=== PATIENT | female | born 1995 | race Caucasian/White ===

== ENCOUNTER → 2017-01-18 | Outpatient (REF) | payer OTHER | LOC: M LAB REF 12:36 | PROVIDERS: ATTEND Physician Assistant Medical | DX: R50.9 Fever, unspecified (principal) ==

== ENCOUNTER → 2017-02-12 | Outpatient (CLI) | payer OTHER | LOC: M OUTALCOH 10:23 | PROVIDERS: ATTEND Psychiatry & Neurology Psychiatry | DX: F11.20 Opioid dependence, uncomplicated (principal); F10.20 Alcohol dependence, uncomplicated ==

== ENCOUNTER 2017-02-20 11:12 | Outpatient (RCR) | payer OTHER | END 2017-02-21 | LOC: M OUTALCOH 11:12 | PROVIDERS: ATTEND Psychiatry & Neurology Psychiatry | DX: F11.20 Opioid dependence, uncomplicated (principal); F10.20 Alcohol dependence, uncomplicated; F17.200 Nicotine dependence, unspecified, uncomplicated ==

== ENCOUNTER 2017-03-21 15:00 | Outpatient (RCR) | payer OTHER | END 2017-03-23 | LOC: M OUTALCOH 15:00 | PROVIDERS: ATTEND Psychiatry & Neurology Psychiatry | DX: F11.20 Opioid dependence, uncomplicated (principal); F10.20 Alcohol dependence, uncomplicated; F17.200 Nicotine dependence, unspecified, uncomplicated ==

== ENCOUNTER → 2017-04-23 | Outpatient (RCR) | payer OTHER, MEDICAID | LOC: M OUTALCOH 03-25 09:00 | PROVIDERS: ATTEND Psychiatry & Neurology Psychiatry | DX: F11.20 Opioid dependence, uncomplicated (principal); F10.20 Alcohol dependence, uncomplicated; F17.200 Nicotine dependence, unspecified, uncomplicated ==

== ENCOUNTER → 2017-05-23 | Outpatient (RCR) | payer OTHER, MEDICAID | LOC: M OUTALCOH 04-29 11:18 | PROVIDERS: ATTEND Psychiatry & Neurology Psychiatry | DX: F11.20 Opioid dependence, uncomplicated (principal); F10.20 Alcohol dependence, uncomplicated; F17.200 Nicotine dependence, unspecified, uncomplicated ==

== ENCOUNTER → 2017-06-23 | Outpatient (RCR) | payer OTHER, MEDICAID | LOC: M OUTALCOH 05-26 09:14 | PROVIDERS: ATTEND Psychiatry & Neurology Psychiatry | DX: F11.20 Opioid dependence, uncomplicated (principal); F10.20 Alcohol dependence, uncomplicated; F17.200 Nicotine dependence, unspecified, uncomplicated ==

== ENCOUNTER → 2017-07-05 | Outpatient (REF) | payer OTHER, MEDICAID | LOC: M LAB REF 13:46 | PROVIDERS: ATTEND Physician Assistant Medical | DX: J02.9 Acute pharyngitis, unspecified (principal) ==

== ENCOUNTER 2017-07-23 16:00 | Outpatient (RCR) | payer OTHER, MEDICAID | END 2017-07-24 | LOC: M OUTALCOH 16:00 | PROVIDERS: ATTEND Psychiatry & Neurology Psychiatry | DX: F11.20 Opioid dependence, uncomplicated (principal); F10.20 Alcohol dependence, uncomplicated; F17.210 Nicotine dependence, cigarettes, uncomplicated ==

== ENCOUNTER 2017-08-22 11:00 | Outpatient (RCR) | payer OTHER, MEDICAID | END 2017-08-23 | LOC: M OUTALCOH 11:00 | PROVIDERS: ATTEND Psychiatry & Neurology Psychiatry | DX: F11.20 Opioid dependence, uncomplicated (principal); F10.20 Alcohol dependence, uncomplicated; F17.200 Nicotine dependence, unspecified, uncomplicated ==

== ENCOUNTER 2017-10-20 14:00 | Outpatient (RCR) | payer OTHER, MEDICAID | END 2017-10-23 | LOC: M OUTALCOH 14:00 | PROVIDERS: ATTEND Psychiatry & Neurology Psychiatry | DX: F11.20 Opioid dependence, uncomplicated (principal); F10.20 Alcohol dependence, uncomplicated; F17.200 Nicotine dependence, unspecified, uncomplicated ==

== ENCOUNTER 2017-11-03 11:52 | Outpatient (RCR) | payer OTHER, MEDICAID | END 2017-11-23 | LOC: M OUTALCOH 11-21 09:00 | DX: F11.20 Opioid dependence, uncomplicated (principal); F10.20 Alcohol dependence, uncomplicated; F17.200 Nicotine dependence, unspecified, uncomplicated ==

== ENCOUNTER 2017-12-08 09:34 | Outpatient (RCR) | payer MEDICAID, OTHER | END 2017-12-24 | LOC: M OUTALCOH 12-22 14:00 | DX: F11.20 Opioid dependence, uncomplicated (principal); F10.20 Alcohol dependence, uncomplicated; F17.200 Nicotine dependence, unspecified, uncomplicated ==

== ENCOUNTER 2018-02-06 09:43 | Outpatient (RCR) | payer MEDICAID | END 2018-02-21 | LOC: M OUTALCOH 09:43 | DX: F11.20 Opioid dependence, uncomplicated (principal); F10.20 Alcohol dependence, uncomplicated; F17.200 Nicotine dependence, unspecified, uncomplicated ==

== ENCOUNTER 2018-09-14 16:17 | Emergency (ER) | payer MEDICAID | END 2018-09-14 18:35 | disposition left against medical advice (07) | LOC: M ED 16:17 | DX: R51 Headache (principal); Z53.21 Procedure and treatment not carried out due to patient leaving prior to being seen by health care provider ==

== ENCOUNTER 2018-09-15 04:44 | Emergency (ER) | payer MEDICAID ==
[2018-09-15] MEDS: AZITHROMYCIN 250 MG TAB PO (06:45)
[2018-09-15] MEDS: cefTRIAXone SOD 250 MG VIAL (J0696) IM (06:46)
== END 2018-09-15 06:51 | disposition home or self-care (01) ==
LOC: M ED 04:44
DX: Z20.2 Contact with and (suspected) exposure to infections with a predominantly sexual mode of transmission (principal); F17.210 Nicotine dependence, cigarettes, uncomplicated
CPT/HCPCS: J0696

== ENCOUNTER → 2018-11-10 | Outpatient (CLI) | payer MEDICAID ==
[~2018-11-10] MED LIST: AMOX500C; BENA25CA4 PO; BUSP10TA PO; IBUP-359; METH5TA PO; PRAZ2CAP PO
[2018-11-10 12:16] LABS: ALT/SGPT 16 U/L (12-78); BILIRUBIN,TOTAL 1.7 MG/DL (0.2-1.0); BLOOD UREA NITROGEN 16 MG/DL (7-18); CALCIUM LEVEL 8.9 MG/DL (8.5-10.1); CARBON DIOXIDE LEVEL 29 MEQ/L (21-32); CHLORIDE LEVEL 100 MEQ/L (98-107); CREATININE FOR GFR 0.78 MG/DL (0.55-1.30); GLOMERULAR FILTRATION RATE > 60.0 (>60); GLUCOSE, FASTING 90 MG/DL (70-100); POTASSIUM SERUM 4.3 MEQ/L (3.5-5.1); SODIUM LEVEL 138 MEQ/L (136-145); TOTAL PROTEIN 7.6 GM/DL (6.4-8.2)
[2018-11-10 12:29] LABS: HEMOGLOBIN 13.3 g/dl (12.0-15.5); MEAN CORPUSCULAR HEMOGLOBIN 32.7 pg (27.0-33.0); MEAN CORPUSCULAR HGB CONC 34.1 g/dl (32.0-36.5); MEAN CORPUSCULAR VOLUME 95.8 fl (80.0-96.0); PLATELET COUNT, AUTOMATED 276 10^3/uL (150-450); RED BLOOD COUNT 4.07 10^6/uL (4.00-5.40)
[2018-11-10 12:54] LABS: CHLAMYDIA DNA AMPLIFICATION NEGATIVE (NEGATIVE); GC DNA AMPLIFICATION NEGATIVE (NEGATIVE)
[2018-11-10 20:19] LABS: HCG, SERUM QUALITATIVE NEGATIVE (NEGATIVE)
--- NOTE | 2018-11-11 06:22 | ECGEPIP ---
Stationary ECG Study [facility] Test Date: 2018-11-10 Pat Name: TIERNEY QUEEN Department: Room: - Gender: F Pie Icer Machine: NATANAEL : 1995 Requested By: Garrison Hdz Order Number: [id number] Reading MD: Meli Rea Measurements Intervals [place] Rate: 73 P: 24 IL: 119 QRS: 59 QRSD: 78 T: 39 QT: 344 QTc: 380 Interpretive Statements SINUS RHYTHM WITH SHORT [place] INTERVAL EARLY REPOLARIZATION PATTERN NO PRIOR Electronically Signed On 11-11-2018 6:22:01 EST by Meli Rea
[2018-11-11 09:43] LABS: HEPATITIS B SURFACE ANTIGEN NEGATIVE (NEGATIVE)
[2018-11-11 10:11] LABS: HEPATITIS C VIRUS ABY INDEX 0.1 INDEX (<0.8)
[2018-11-11 10:12] LABS: HIV 1&2 SCREEN CENTAUR NEGATIVE (NEGATIVE)
== END ==
LOC: M LAB 10:44
PROVIDERS: ATTEND Family Medicine
DX: F11.20 Opioid dependence, uncomplicated (principal)

== ENCOUNTER 2018-11-20 17:22 | Emergency (ER) | payer MEDICAID, OTHER ==
[~2018-11-20] VITALS: Ht 147.3 cm; Wt 49.1 kg
[2018-11-20] MEDS ORDERED: BUSP10TA PO (17:47)
[2018-11-20] MEDS ORDERED: AMOX500C (17:47)
[2018-11-20] MEDS ORDERED: PRAZ2CAP PO (17:47)
[2018-11-20] MEDS ORDERED: METH5TA PO (17:47)
[2018-11-20] MEDS ORDERED: IBUP-359 (17:47)
[2018-11-20] MEDS ORDERED: diphenhydrAMINE 50 MG CAP PO ONE (18:30)
[2018-11-20 18:56] LABS: ALBUMIN 3.4 GM/DL (3.2-5.2); ALT/SGPT 27 U/L (12-78); BILIRUBIN,DIRECT 0.1 MG/DL (0.0-0.2); BILIRUBIN,TOTAL 0.5 MG/DL (0.2-1.0); BLOOD UREA NITROGEN 8 MG/DL (7-18); CALCIUM LEVEL 8.6 MG/DL (8.5-10.1); CARBON DIOXIDE LEVEL 30 MEQ/L (21-32); CHLORIDE LEVEL 102 MEQ/L (98-107); CREATININE FOR GFR 0.65 MG/DL (0.55-1.30); GLOMERULAR FILTRATION RATE > 60.0 (>60); GLUCOSE, FASTING 81 MG/DL (70-100); POTASSIUM SERUM 3.3 MEQ/L (3.5-5.1); SODIUM LEVEL 140 MEQ/L (136-145); TOTAL PROTEIN 6.8 GM/DL (6.4-8.2)
[2018-11-20] MEDS ORDERED: BENA25CA4 PO (19:11)
[2018-11-20 19:19] VITALS: BP 123/87
== END 2018-11-20 19:25 | disposition home or self-care (01) ==
LOC: M ED 17:22
DX: L50.9 Urticaria, unspecified (principal); R60.0 Localized edema; Z79.891 Long term (current) use of opiate analgesic; F11.11 Opioid abuse, in remission; F17.201 Nicotine dependence, unspecified, in remission

== ENCOUNTER 2018-12-19 17:14 | Emergency (ER) | payer OTHER ==
[~2018-12-19] VITALS: Ht 147.3 cm; Wt 40.9 kg
[2018-12-19] MEDS ORDERED: BUSP10TA PO (18:51)
[2018-12-19 18:58] VITALS: BP 133/89
== END 2018-12-19 19:01 | disposition home or self-care (01) ==
LOC: M ED 17:14
DX: Z76.0 Encounter for issue of repeat prescription (principal); F41.9 Anxiety disorder, unspecified; F11.10 Opioid abuse, uncomplicated; F17.200 Nicotine dependence, unspecified, uncomplicated; Z79.899 Other long term (current) drug therapy

== ENCOUNTER 2018-12-27 14:51 | Emergency (ER) | payer OTHER ==
[~2018-12-27] VITALS: Ht 147.3 cm; Wt 44.9 kg
[2018-12-27 16:41] LABS: URINE PREG TEST NEGATIVE (NEGATIVE)
[2018-12-27] MEDS ORDERED: FLAG500T PO (17:10)
[2018-12-27] MEDS ORDERED: PRAZ2CAP PO (17:10)
[2018-12-27] MEDS ORDERED: metroNIDAZOLE (FLAGYL) 500 MG TAB PO ONE (17:15)
[2018-12-27] MEDS ORDERED: PRAZOSIN 1 MG CAP PO SCH (17:15)
[2018-12-27 17:43] VITALS: BP 117/89
[2018-12-27 17:48] VITALS: BP 117/89
[2018-12-27 18:28] LABS: CHLAMYDIA DNA AMPLIFICATION NEGATIVE (NEGATIVE); GC DNA AMPLIFICATION NEGATIVE (NEGATIVE)
== END 2018-12-27 17:50 | disposition home or self-care (01) ==
LOC: M ED 14:51
DX: Z76.0 Encounter for issue of repeat prescription (principal); N76.0 Acute vaginitis; F43.10 Post-traumatic stress disorder, unspecified; F51.4 Sleep terrors [night terrors]; Z72.0 Tobacco use; Z79.899 Other long term (current) drug therapy

== ENCOUNTER → 2018-12-29 | Outpatient (REF) | payer OTHER ==
[~2018-12-29] MED LIST changes: +FLAG500T PO
== END ==
LOC: M SFHCPLAZ 08:14
PROVIDERS: ATTEND Nurse Practitioner Family
DX: Z00.00 Encounter for general adult medical examination without abnormal findings (principal); F31.30 Bipolar disorder, current episode depressed, mild or moderate severity, unspecified; Z13.220 Encounter for screening for lipoid disorders; Z53.9 Procedure and treatment not carried out, unspecified reason

== ENCOUNTER 2019-05-02 18:52 | Emergency (ER) | payer OTHER ==
[~2019-05-02] VITALS: Ht 147.3 cm; Wt 47.6 kg
[2019-05-02 20:05] VITALS: BP 118/80
[2019-05-03] MEDS ORDERED: MACR100C43 PO (17:17)
== END 2019-05-02 20:08 | disposition home or self-care (01) ==
LOC: M ED 18:52
DX: F34.9 Persistent mood [affective] disorder, unspecified (principal); F17.210 Nicotine dependence, cigarettes, uncomplicated; F11.20 Opioid dependence, uncomplicated; F31.9 Bipolar disorder, unspecified; Z79.899 Other long term (current) drug therapy

== ENCOUNTER 2019-05-03 08:49 | Emergency (ER) | payer OTHER ==
[~2019-05-03] VITALS: Ht 149.9 cm; Wt 43.2 kg
[2019-05-03] MEDS ORDERED: NALOXONE INJ 0.4 MG/1 ML VIAL (J2310) IV ONE (09:15)
[2019-05-03 10:10] LABS: BASO # 0.1 10^3/uL (0.0-0.2); BASO % 0.7 % (0.0-1.0); EOS # 0.1 10^3/uL (0.0-0.50); EOS % 0.7 % (0.0-3.0); HEMATOCRIT 41.9 % (36.0-47.0); HEMOGLOBIN 14.1 g/dl (12.0-15.5); LYMPH % 35.3 % (24.0-44.0); MEAN CORPUSCULAR HEMOGLOBIN 32.3 pg (27.0-33.0); MEAN CORPUSCULAR HGB CONC 33.7 g/dl (32.0-36.5); MEAN CORPUSCULAR VOLUME 95.9 fl (80.0-96.0); MONO # 0.9 10^3/uL (0.0-0.8); MONO % 10.1 % (0.0-5.0); NEUTROPHILS # 4.5 10^3/uL (1.8-7.7); PLATELET COUNT, AUTOMATED 339 10^3/uL (150-450); RED BLOOD COUNT 4.37 10^6/uL (4.00-5.40); WHITE BLOOD COUNT 8.5 10^3/uL (4.0-10.0)
[2019-05-03 10:24] LABS: HCG, SERUM QUALITATIVE NEGATIVE (NEGATIVE)
[2019-05-03 10:32] LABS: ALBUMIN 4.1 GM/DL (3.2-5.2); ALT/SGPT 15 U/L (12-78); BILIRUBIN,DIRECT 0.3 MG/DL (0.0-0.2); BILIRUBIN,TOTAL 1.2 MG/DL (0.2-1.0); BLOOD UREA NITROGEN 14 MG/DL (7-18); CALCIUM LEVEL 8.5 MG/DL (8.5-10.1); CARBON DIOXIDE LEVEL 24 MEQ/L (21-32); CHLORIDE LEVEL 102 MEQ/L (98-107); CPK CREATINE PHOSPHOKINASE 122 U/L (26-192); CREATININE FOR GFR 0.97 MG/DL (0.55-1.30); GLOMERULAR FILTRATION RATE > 60.0 (>60); GLUCOSE, FASTING 106 MG/DL (70-100); POTASSIUM SERUM 3.9 MEQ/L (3.5-5.1); SALICYLATE LEVEL < 1.7 MG/DL (5.0-30.0); SODIUM LEVEL 139 MEQ/L (136-145); TOTAL PROTEIN 8.4 GM/DL (6.4-8.2)
[2019-05-03 10:33] LABS: ACETAMINOPHEN LEVEL < 2.0 UG/ML (10.0-30.0); ETHYL ALCOHOL (ETHANOL) < 0.003 % (0.000-0.010)
[2019-05-03] MEDS: NS 1,000 ML IV SCH ×2 (10:35→15:53)
[2019-05-03 10:37] LABS: AMPHETAMINES LEVEL URINE NEGATIVE (NEGATIVE); BARBITURATES URINE NEGATIVE (NEGATIVE); BENZODIAZEPINES URINE NEGATIVE (NEGATIVE); CANNABINOIDS URINE NEGATIVE (NEGATIVE); COCAINE METABOLITE URINE NEGATIVE (NEGATIVE); METHADONE URINE POSITIVE (NEGATIVE); OPIATES URINE NEGATIVE (NEGATIVE); PHENCYCLIDINE URINE NEGATIVE (NEGATIVE)
[2019-05-03] MEDS ORDERED: cefTRIAXone SOD 1 GM in D5W MINI-BAG PLUS 50 ML IV ONE (11:00)
--- NOTE | 2019-05-03 11:28 | REP ---
CHEST, SINGLE VIEW: There is no evidence of acute infiltrate. No pleural effusion is seen. The heart is normal in size. The mediastinal silhouette is unremarkable. The visualized osseous structures are intact. IMPRESSION: No acute pulmonary disease. Electronically Signed by Garrison Gonzalez MD 05/04/2019 11:32 A
[2019-05-03] MEDS ORDERED: NS 1,000 ML IV ONE (15:30)
[2019-05-03 16:30] VITALS: BP 129/79
[2019-05-03] MEDS ORDERED: MACR100C43 PO (17:17)
--- NOTE | 2019-05-04 07:47 | ECGEPIP ---
[facility] - ED Test Date: 2019-05-03 Pat Name: TIERNEY QUEEN Department: Room: - Gender: Female Prospecting Driller: TC : 1995 Requested By: ARMIN Camarena Order Number: [id number] Reading MD: Maikol Turner Measurements Intervals [place] Rate: 109 P: 58 AL: 112 QRS: 63 QRSD: 76 T: 13 QT: 338 QTc: 457 Interpretive Statements SINUS TACHYCARDIA WITH SHORT AL INTERVAL BENIGN EARLY REPOLARIZATION NONSPECIFIC T-WAVE ABNORMALITY RATE CHANGE COMPARED TO 11/10/18 Electronically Signed on 05-04-2019 7:47:06 EDT by Maikol Turner
== END 2019-05-03 17:40 | disposition home or self-care (01) ==
LOC: M ED 08:49 → EEVIPCON 08:49 → EDBD 08:49 → M ED 17:40
DX: T50.991A Poisoning by other drugs, medicaments and biological substances, accidental (unintentional), initial encounter (principal); X58.XXXA Exposure to other specified factors, initial encounter; Y92.89 Other specified places as the place of occurrence of the external cause; N39.0 Urinary tract infection, site not specified; F33.9 Major depressive disorder, recurrent, unspecified; F41.9 Anxiety disorder, unspecified; F19.10 Other psychoactive substance abuse, uncomplicated; Z79.891 Long term (current) use of opiate analgesic; F17.210 Nicotine dependence, cigarettes, uncomplicated
CPT/HCPCS: 36415; 51701; 71045; 80048; 80076; 80307; 81001; 82550; 84443; 84703; 85025; 87088; 87186; 93005; 93041; 94760; 96365; 96375; 99285; G0480; J0696; J2310

== ENCOUNTER 2019-05-19 13:34 | Inpatient (IN) | payer OTHER ==
[~2019-05-19] VITALS: Ht 149.9 cm; Wt 50.0 kg
[~2019-05-19 13:34] MED LIST changes: +MACR100C43 PO
[2019-05-19] MEDS ORDERED: MOXI400T11 PO (13:42)
[2019-05-19] MEDS ORDERED: LAMO25TA4 PO (13:42)
[2019-05-19 15:24] LABS: HEMATOCRIT 38.1 % (36.0-47.0); HEMOGLOBIN 13.2 g/dl (12.0-15.5); MEAN CORPUSCULAR HEMOGLOBIN 32.6 pg (27.0-33.0); MEAN CORPUSCULAR HGB CONC 34.6 g/dl (32.0-36.5); MEAN CORPUSCULAR VOLUME 94.1 fl (80.0-96.0); PLATELET COUNT, AUTOMATED 286 10^3/uL (150-450); RED BLOOD COUNT 4.05 10^6/uL (4.00-5.40); WHITE BLOOD COUNT 8.9 10^3/uL (4.0-10.0)
[2019-05-19 15:57] LABS: AMPHETAMINES LEVEL URINE NEGATIVE (NEGATIVE); BARBITURATES URINE NEGATIVE (NEGATIVE); BENZODIAZEPINES URINE NEGATIVE (NEGATIVE); CANNABINOIDS URINE NEGATIVE (NEGATIVE); COCAINE METABOLITE URINE NEGATIVE (NEGATIVE); METHADONE URINE POSITIVE (NEGATIVE); OPIATES URINE NEGATIVE (NEGATIVE); PHENCYCLIDINE URINE NEGATIVE (NEGATIVE)
[2019-05-19 15:58] LABS: HCG, SERUM QUALITATIVE NEGATIVE (NEGATIVE)
[2019-05-19 16:05] LABS: ACETAMINOPHEN LEVEL < 2.0 UG/ML (10.0-30.0); ALBUMIN 4.1 GM/DL (3.2-5.2); ALT/SGPT 18 U/L (12-78); BILIRUBIN,DIRECT 0.3 MG/DL (0.0-0.2); BILIRUBIN,TOTAL 1.2 MG/DL (0.2-1.0); BLOOD UREA NITROGEN 11 MG/DL (7-18); CALCIUM LEVEL 9.1 MG/DL (8.5-10.1); CARBON DIOXIDE LEVEL 29 MEQ/L (21-32); CHLORIDE LEVEL 101 MEQ/L (98-107); CREATININE FOR GFR 0.77 MG/DL (0.55-1.30); ETHYL ALCOHOL (ETHANOL) < 0.003 % (0.000-0.010); GLOMERULAR FILTRATION RATE > 60.0 (>60); GLUCOSE, FASTING 75 MG/DL (70-100); POTASSIUM SERUM 4.2 MEQ/L (3.5-5.1); SALICYLATE LEVEL < 1.7 MG/DL (5.0-30.0); SODIUM LEVEL 136 MEQ/L (136-145); TOTAL PROTEIN 7.9 GM/DL (6.4-8.2)
[2019-05-19] MEDS ORDERED: METH10CO PO (20:20)
[2019-05-19] MEDS ORDERED: MAALOX 30 ML SUSP *UDC PO PRN (20:45)
[2019-05-19] MEDS ORDERED: MOM 30ML SUSPENSION UDC PO PRN (20:45)
[2019-05-19] MEDS ORDERED: lamoTRIgine 25 MG TAB PO SCH (21:00)
[2019-05-19 23:20] VITALS: BP 133/83
[2019-05-20] MEDS: busPIRone 10 MG TAB PO SCH ×3 (00:09→20:04)
[2019-05-20] MEDS: traZODone 50 MG TAB PO PRN ×2 (00:12→21:13)
[2019-05-20] MEDS ORDERED: MOXIFLOXACIN 400 MG TAB PO SCH (06:00)
[2019-05-20 06:46] VITALS: BP 105/60
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
[2019-05-20 12:30] VITALS: BP 124/73
[2019-05-20] MEDS: METHADONE 10 MG TAB (S0109) PO SCH (12:33)
[2019-05-20] MEDS: NICOTINE 14 MG/24 HR TRANSDERMAL TD SCH (12:40)
[2019-05-20 18:00] VITALS: BP 123/77
[2019-05-21 07:15] VITALS: BP 110/64
[2019-05-21] MEDS: busPIRone 10 MG TAB PO SCH ×2 (08:34→20:40)
[2019-05-21] MEDS: METHADONE 10 MG TAB (S0109) PO SCH (08:35)
[2019-05-21] MEDS: NICOTINE 14 MG/24 HR TRANSDERMAL TD SCH (08:35)
--- NOTE | 2019-05-21 08:36 | HPEPDOC ---
General Date of Admission May 19, 2019 at 20:42 Date of Service: May 21, 2019 Attending Physician: YOVANY RASHEED MD Chief Complaint The patient is a 23-year-old female admitted with a reason for visit of Unspecified Mood D/O. History of Present Illness Patient is a 23-year-old female, past medical history significant for polysubstance abuse who has been clean for over one year and also transitioned to methadone program. Patient was admitted to inpatient psychiatric unit on account of suicidal ideation. On assessment, she complains of urinary tract infection which has been ongoing for 1 month with discharge. She was treated with antibiotic therapy for 7 days. She however reports she still has symptoms of dysuria, frequency, diaphoresis, and suprapubic pain. She denied any chills, fever, nausea, vomiting. She also reported intermittent periods of confusion which she attributes to possible underlying infection. Urinalysis completed, the 10th of this month showed cloudy appearance urine, with 1+ protein, 2+ leukoesterase, 107, white blood count, moderate mucus. 3. Organisms were isolated strep agalactiae group B, Streptococcus mitis, staph aureus, methicillin-resistant. Home Medications Scheduled Buspirone HCl (Buspirone HCl) 10 Mg Tab, 10 MG PO BID, (Reported) Lamotrigine (Lamotrigine) 25 Mg Tablet, 25 MG PO QHS, (Reported) Methadone HCl (Methadone HCl) 10 Mg/1 Ml Oral.conc, 135 MG PO QAM, (Reported) Moxifloxacin HCl (Moxifloxacin HCl) 400 Mg Tablet, 400 MG PO DAILY, (Reported) STARTED 05/15/2019 Allergies Coded Allergies: No Known Allergies (Unverified , 09/15/18) Past Medical History Medical History Depression Nicotine dependence Polysubstance abuse Surgical History Denies surgical history Family History Denies family history Social History * Smoker: greater than 1 pack/day Alcohol: Denies Drugs: prescription drugs (methadone) A-FIB/CHADSVASC A-FIB History Current/History of A-Fib/PAF?: No Current PO Anticoag Therapy: No Review of Systems Other systems A 10 point pertinent review of systems was completed, negative except as stated in the history of presenting illness. Physical Examination Other physical findings GENERAL: NAD SKIN : Warm, dry intact HEENT: Atraumatic, normocephalic, PERRL, moist mucous membrane CARDIOVASCULAR: Regular rate and rhythm, S1S2, no JVD, no edema, distal pulses + and palpable RESP: CTAB, no accessory muscle use noted ABDOMEN: BS+ non distended suprapubic tenderness MS: no joint deformities NEURO: Alert and oriented x 3, CN2-12 grossly intact PSYCH: no anxiety or agitation, appropriate mood and affect. Vital Signs Vital Signs Date Time Temp Pulse Resp B/P (MAP) Pulse Ox O2 Delivery O2 Flow Rate FiO2 05/21/19 07:15 98.6 79 110/64 (79) 18 05/20/19 18:00 99 05/19/19 22:41 Room Air Assessment/Plan Complicated urinary tract infection -Patient reports she completed 7 day antibiotic therapy -Still has persisting symptoms -We'll repeat urinalysis and follow findings Depression and anxiety -Management by primary team Suicidal ideation -Management by primary team Plan / VTE VTE Prophylaxis Ordered?: No VTE Exclusion Mechanical Proph: Low Risk for VTE LIAM WEBSTER May 21, 2019 08:36
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
[2019-05-21] MEDS: NICOTINE 21MG/24HR 1 EA TRANSDERMAL TD SCH (10:10)
[2019-05-21] MEDS: hydrOXYzine 50 MG TAB PO PRN (13:30)
[2019-05-21 18:18] VITALS: BP 108/56
[2019-05-21] MEDS: ACETAMINOPHEN TAB 650MG DOSE (2X325MG) PO PRN (21:27)
[2019-05-21] MEDS: traZODone 50 MG TAB PO PRN (21:27)
[2019-05-21] MEDS: TERCONAZOLE-7 VAGINAL CREAM PV SCH (21:28)
[2019-05-22 06:42] VITALS: BP 103/59
[2019-05-22] MEDS: NICOTINE 21MG/24HR 1 EA TRANSDERMAL TD SCH (08:26)
[2019-05-22] MEDS: METHADONE 10 MG TAB (S0109) PO SCH (08:26)
[2019-05-22] MEDS: busPIRone 10 MG TAB PO SCH ×2 (09:04→20:29)
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
[2019-05-22 18:00] VITALS: BP 110/62
[2019-05-22] MEDS: TERCONAZOLE-7 VAGINAL CREAM PV SCH (21:18)
[2019-05-22] MEDS: traZODone 50 MG TAB PO PRN (21:18)
[2019-05-22] MEDS: ACETAMINOPHEN TAB 650MG DOSE (2X325MG) PO PRN (21:22)
[2019-05-23 06:44] VITALS: BP 99/55
[2019-05-23] MEDS: METHADONE 10 MG TAB (S0109) PO SCH (08:11)
[2019-05-23] MEDS: busPIRone 10 MG TAB PO SCH ×2 (08:12→20:04)
[2019-05-23] MEDS: NICOTINE 21MG/24HR 1 EA TRANSDERMAL TD SCH (08:13)
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
[2019-05-23] MEDS: ACETAMINOPHEN TAB 650MG DOSE (2X325MG) PO PRN ×2 (11:07→20:04)
[2019-05-23 18:00] VITALS: BP 105/61
[2019-05-23] MEDS: traZODone 50 MG TAB PO PRN (21:25)
[2019-05-23] MEDS: TERCONAZOLE-7 VAGINAL CREAM PV SCH (21:25)
[2019-05-24 06:57] VITALS: BP 90/51
[2019-05-24] MEDS: METHADONE 10 MG TAB (S0109) PO SCH (08:10)
[2019-05-24] MEDS: NICOTINE 21MG/24HR 1 EA TRANSDERMAL TD SCH (08:12)
[2019-05-24] MEDS: busPIRone 10 MG TAB PO SCH ×2 (08:12→20:22)
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
[2019-05-24] MEDS: hydrOXYzine 50 MG TAB PO PRN (13:32)
[2019-05-24] MEDS: ACETAMINOPHEN TAB 650MG DOSE (2X325MG) PO PRN ×2 (13:32→22:01)
[2019-05-24 18:19] VITALS: BP 102/58
[2019-05-24] MEDS: TERCONAZOLE-7 VAGINAL CREAM PV SCH (21:51)
[2019-05-24] MEDS: traZODone 50 MG TAB PO PRN (21:51)
[2019-05-25 06:40] VITALS: BP 98/54
[2019-05-25] MEDS: busPIRone 10 MG TAB PO SCH (08:14)
[2019-05-25] MEDS: NICOTINE 21MG/24HR 1 EA TRANSDERMAL TD SCH (08:14)
[2019-05-25] MEDS: METHADONE 10 MG TAB (S0109) PO SCH (08:15)
--- NOTE | 2019-05-25 08:41 | MHDSPDOC ---
[facility] Discharge Summary Discharge Summary DATE OF ADMISSION: May 19, 2019 at 8:42 pm DATE OF DISCHARGE: May 25, 2019 DISCHARGE DIAGNOSES: Depression Unspecified Anxiety Unspecified R/O PTSD Opiate use d/o in short term remission REASON FOR ADMISSION: Patient is a 23 -year-old , female, with a history of no IV heroin abuse and is in Methadone program at [facility] who self presented to the ED with her boyfriend and [facility] counselor endorsing worsen depression and passive SI of wanting to fall asleep and not wake up despite treatment compliance per ED. ED stated that pt was anxious, irritable, and demanding stating she felt as it she was being "blown off" during U interview. Per ED appeared to have difficulty understanding interview questions and treatment course during BHU interview due to increasing irritability. In ED pt endorsed emotional lability, irritability, increased sleep, and feeling out of control regarding her mood. Per ED pt had presented to ED on 05/02 with similar complaint but [facility] full and did not want to be transferred so was d/c, went home at [facility] 3-4 pain meds for neck/back pain and then presented on 05/03 to ED again in denial of SI/HI. ED very suspicious that pt is mostly substance related dr mcintosh rather than mental health driven per ED. CONSULTANTS INVOLVED: none TREATMENT AND PROGRESS ON THE UNIT : Pt was admitted to [facility], seen for psychiatric assessment and started on abilify 5mg daily for mood and anxiety. She restarted on her outpatient Methadone 135mg daily confirmed by [facility] and buspar 10mg bid for anxiety. She was provided vistaril 50mg q6hr prn anxiety and trazodone 50mg qhs prn insomnia. Pt found her medications beneficial and tolerated them well. She attended groups daily during her stay. Her symptoms improved with treatment. On day of discharge she denied depression, anxiety, insomnia, SI/HI, hallucinations, delusions. She was discharged home with follow-up at [facility]. She felt safe for discharge. DISCHARGE ASSESSMENT:Pt seen and states that her mood is "good" and that she's looking forward to going home today. States she's being social on the milieu which is beneficial. States she slept well last night. Feels she is tolerating her medications and they're beneficial especially abilify for her mood. She is attending groups and finding them helpful learning coping skills. She denies depression, anxiety, insomnia, SI/HI, hallucinations, delusions. Pt feels safe to be discharged home. MENTAL STATUS EXAMINATION ON DISCHARGE: General Appearance: well groomed, appears stated age, own clothing Build: average, other (petite) Demeanor: cooperative and appropriate Eye Contact: average Activity: average Behavior: cooperative and appropriate Speech: clear, spontaneous, normal volume, reg/rate,rhythm,volume Mood: euthymic, full range Mood "good" Affect: euthymic, appropriate, congruent Thought Process: logical/linear, intact Thought Content (Delusions): none reported, denies SI, HI, AVH Thought Content (Other): none reported, appropriate Thought Content (Aggressive): none reported Perception (Hallucinations): none reported Perception (Other): none reported Cognition (Impairment of): none reported Cognition(Intelligence Est.): average Oriented: Awake, Alert Insight: good Judgment: good Psychosis: Denies MEDICATIONS ON DISCHARGE: abilify 5mg daily methadone 135mg daily (confirmed by [facility]) vistaril 50mg q6hr prn anxiety trazodone 50mg qhs prn insomnia buspar 10mg bid PLAN/FOLLOWUP ARRANGEMENTS: D/c home with follow-up at [facility]. The amount of time spent in the coordination of care for this patient was approximately 30 minutes. Vital Signs/I&Os Vital Signs Date Time Temp Pulse Resp B/P (MAP) Pulse Ox O2 Delivery O2 Flow Rate FiO2 05/25/19 06:40 98.8 75 18 98/54 (69) 05/21/19 18:18 18 05/19/19 22:41 Room Air Laboratory Data Microbiology Microbiology 05/23/19 Urine Culture - Final, Complete 05/21/19 Urine Culture - Final, Complete Medications Scheduled Aripiprazole (Abilify) 5 Mg Tablet, 5 MG PO DAILY for bipolar d/o, #10 Buspirone HCl (Buspirone HCl) 10 Mg Tablet, 10 MG PO BID for anxiety, #20 Methadone HCl (Methadone HCl) 10 Mg/1 Ml Oral.conc, 135 MG PO QAM, (Reported) Moxifloxacin HCl (Moxifloxacin HCl) 400 Mg Tablet, 400 MG PO DAILY, (Reported) STARTED 05/15/2019 Scheduled PRN Hydroxyzine HCl (Hydroxyzine HCl) 50 Mg Tablet, 50 MG PO Q4HP PRN for ANXIETY/AGITATION, #30 Trazodone HCl (Trazodone HCl) 50 Mg Tablet, 50 MG PO QHSP PRN for INSOMNIA, #10 Allergies Coded Allergies: No Known Allergies (Unverified , 09/15/18) LENNIE JIMENEZ DO May 25, 2019 8:41 am
[2019-05-25] MEDS ORDERED: BUSP10TA PO (08:44)
[2019-05-25] MEDS ORDERED: HYDRO50TAB PO (08:44)
[2019-05-25] MEDS ORDERED: ABIL1TAB11 PO (08:44)
[2019-05-25] MEDS ORDERED: TRAZ-252 PO (08:44)
== END 2019-05-25 13:35 | disposition home or self-care (01) | DRG 754 ==
LOC: M ED 13:34 → M ED INP 20:42 → M PSY 23:11
PROVIDERS: ADMIT Psychiatry & Neurology Psychiatry; ATTEND Psychiatry & Neurology Psychiatry
DX: F32.9 Major depressive disorder, single episode, unspecified (principal); F41.9 Anxiety disorder, unspecified; F43.10 Post-traumatic stress disorder, unspecified; F11.90 Opioid use, unspecified, uncomplicated; F17.200 Nicotine dependence, unspecified, uncomplicated

== ENCOUNTER → 2019-06-18 | Outpatient (REF) | payer OTHER ==
[~2019-06-18] MED LIST changes: +ABIL1TAB11 PO; +HYDRO50TAB PO; +LAMO25TA4 PO; +METH10CO PO; +MOXI400T11 PO; +TRAZ-252 PO
[2019-06-18 16:00] LABS: CHLAMYDIA DNA AMPLIFICATION POSITIVE (NEGATIVE); GC DNA AMPLIFICATION NEGATIVE (NEGATIVE)
== END ==
LOC: M SFHCPLAZ 11:10
PROVIDERS: ATTEND Nurse Practitioner Family
DX: Z86.19 Personal history of other infectious and parasitic diseases (principal)

== ENCOUNTER 2019-07-14 15:33 | Inpatient (IN) | payer OTHER ==
[~2019-07-14] VITALS: Ht 149.9 cm; Wt 50.3 kg
[~2019-07-14 15:33] MED LIST changes: +HYDR1TAB33 PO; -HYDRO50TAB PO
[2019-07-14] MEDS ORDERED: METH10SO PO (15:50)
[2019-07-14 16:40] LABS: HEMOGLOBIN 14.4 g/dl (12.0-15.5); MEAN CORPUSCULAR HEMOGLOBIN 30.8 pg (27.0-33.0); MEAN CORPUSCULAR HGB CONC 34.3 g/dl (32.0-36.5); MEAN CORPUSCULAR VOLUME 89.9 fl (80.0-96.0); PLATELET COUNT, AUTOMATED 303 10^3/uL (150-450); RED BLOOD COUNT 4.67 10^6/uL (4.00-5.40); WHITE BLOOD COUNT 8.6 10^3/uL (4.0-10.0)
[2019-07-14 17:04] LABS: HCG, SERUM QUALITATIVE NEGATIVE (NEGATIVE)
[2019-07-14 17:06] LABS: AMPHETAMINES LEVEL URINE POSITIVE (NEGATIVE); BARBITURATES URINE NEGATIVE (NEGATIVE); BENZODIAZEPINES URINE NEGATIVE (NEGATIVE); CANNABINOIDS URINE NEGATIVE (NEGATIVE); COCAINE METABOLITE URINE NEGATIVE (NEGATIVE); METHADONE URINE POSITIVE (NEGATIVE); OPIATES URINE NEGATIVE (NEGATIVE); PHENCYCLIDINE URINE NEGATIVE (NEGATIVE)
[2019-07-14 17:14] LABS: ACETAMINOPHEN LEVEL < 2.0 UG/ML (10.0-30.0); ALBUMIN 4.3 GM/DL (3.2-5.2); ALT/SGPT 13 U/L (12-78); BILIRUBIN,DIRECT 0.3 MG/DL (0.0-0.2); BLOOD UREA NITROGEN 15 MG/DL (7-18); CALCIUM LEVEL 9.3 MG/DL (8.5-10.1); CARBON DIOXIDE LEVEL 28 MEQ/L (21-32); CHLORIDE LEVEL 103 MEQ/L (98-107); CREATININE FOR GFR 0.98 MG/DL (0.55-1.30); ETHYL ALCOHOL (ETHANOL) < 0.003 % (0.000-0.010); GLOMERULAR FILTRATION RATE > 60.0 (>60); GLUCOSE, FASTING 71 MG/DL (70-100); POTASSIUM SERUM 4.2 MEQ/L (3.5-5.1); SALICYLATE LEVEL 1.9 MG/DL (5.0-30.0); SODIUM LEVEL 137 MEQ/L (136-145); TOTAL PROTEIN 8.1 GM/DL (6.4-8.2)
[2019-07-14] MEDS ORDERED: MAALOX 30 ML SUSP *UDC PO PRN (18:00)
[2019-07-14] MEDS ORDERED: MOM 30ML SUSPENSION UDC PO PRN (18:00)
[2019-07-14] MEDS: ACETAMINOPHEN TAB 650MG DOSE (2X325MG) PO PRN (19:39)
[2019-07-14 19:55] VITALS: BP 121/82
[2019-07-14] MEDS ORDERED: ARIP1TAB PO (19:57)
[2019-07-14] MEDS ORDERED: HYDR50TA70 PO (19:57)
[2019-07-14] MEDS ORDERED: BUSP10TA PO (19:57)
[2019-07-14] MEDS ORDERED: TRAZ-252 PO (19:57)
[2019-07-14] MEDS: traZODone 50 MG TAB PO PRN (21:07)
[2019-07-15 06:36] VITALS: BP 111/59
[2019-07-15] MEDS ORDERED: busPIRone 10 MG TAB PO SCH (09:00)
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
[2019-07-15] MEDS: METHADONE 10 MG TAB (S0109) PO SCH (10:51)
[2019-07-15] MEDS ORDERED: buPROPion **XL** TABLET 150MG (WELLBUTRIN XL) PO ONE (12:15)
[2019-07-15] MEDS: NICOTINE 21MG/24HR 1 EA TRANSDERMAL TD SCH (14:07)
[2019-07-15 18:00] VITALS: BP 106/51
--- NOTE | 2019-07-15 19:07 | HPEPDOC ---
General Date of Admission Jul 14, 2019 at 18:10 Date of Service: Jul 15, 2019 Chief Complaint The patient is a 23-year-old female admitted with a reason for visit of Unspecified Depressive D/O. Source: Patient Exam Limitations: No limitations Timing/Duration: Getting worse Severity: Moderate Associated Symptoms: Denies Symptoms Home Medications Scheduled Aripiprazole (Aripiprazole) 10 Mg Tablet, 10 MG PO QHS, (Reported) Buspirone HCl (Buspirone HCl) 10 Mg Tablet, 10 MG PO BID, (Reported) Methadone HCl (Methadone HCl) 10 Mg/5 Ml Solution, 150 MG PO DAILY, (Reported) TAKES AROUND 08:30 EVERY MORNING Scheduled PRN Hydroxyzine HCl (Hydroxyzine HCl) 50 Mg Tablet, 50 MG PO Q6H PRN for ANXIETY, (Reported) Trazodone HCl (Trazodone HCl) 50 Mg Tablet, 50 MG PO QHS PRN for INSOMNIA, (Reported) Allergies Coded Allergies: No Known Allergies (Unverified , 07/14/19) Past Medical History Medical History Prior UTI Family History Significant Family History: No pertinent family hx Social History * Smoker: less than 1 pack/day Alcohol: Denies Drugs: heroin (history of; has been off since October 2018) Recent Travel/Sick Contacts: Denies: Recent travel, Recent sick contacts Psychosocial History: Depression A-FIB/CHADSVASC A-FIB History Current/History of A-Fib/PAF?: No Current PO Anticoag Therapy: No Review of Systems Other systems 10 system review is otherwise negative except for HPI Physical Examination General Exam: Positive: Alert, Cooperative, No Acute Distress Eye Exam: Positive: PERRLA, Conjunctiva & lids normal ENT Exam: Positive: Atraumatic, Mucous membr. moist/pink, Pharynx Normal, Tongue Midline, Nares Patent Neck Exam: Positive: Supple Chest Exam: Positive: Clear to auscultation, Normal air movement Heart Exam: Positive: Rate Normal Abdomen Exam: Positive: Normal bowel sounds, Soft Extremity Exam: Positive: Normal pulses Skin Exam: Positive: Nl turgor and temperature, Lesion (some tattoos) Neuro Exam: Positive: Normal Gait, Normal Speech, Strength at 5/5 X4 ext, No rmal Tone, Sensation Intact, Cranial Nerves 3-12 NL Psych Exam: Positive: Oriented x 3, Other (mildly depressed affect) Vital Signs Vital Signs Date Time Temp Pulse Resp B/P (MAP) Pulse Ox O2 Delivery O2 Flow Rate FiO2 07/15/19 18:00 99.8 69 14 106/51 (69) 07/14/19 19:58 Room Air 07/14/19 19:55 100 Assessment/Plan The patient is admitted to the mental health unit for management of depression. She does not have any acute medical concerns. Please do not hesitate to call us if she develops any. Plan / VTE VTE Prophylaxis Ordered?: No VTE Exclusion Pharmacological: At Low Risk for VTE Plan Diet: Continue Current Activity: Continue Current Anticipated Discharge: Home AVIS EUGENE MD Jul 15, 2019 19:07
[2019-07-15] MEDS ORDERED: ARIPiprazole 10 MG TAB PO SCH (21:00)
[2019-07-15] MEDS: traZODone 50 MG TAB PO PRN (21:56)
[2019-07-15] MEDS: ACETAMINOPHEN TAB 650MG DOSE (2X325MG) PO PRN (22:47)
[2019-07-16 06:32] VITALS: BP 100/57
[2019-07-16] MEDS: METHADONE 10 MG TAB (S0109) PO SCH (08:36)
[2019-07-16] MEDS: NICOTINE 21MG/24HR 1 EA TRANSDERMAL TD SCH (08:36)
[2019-07-16] MEDS: buPROPion **XL** TABLET 150MG (WELLBUTRIN XL) PO SCH (08:36)
--- NOTE | 2019-07-16 11:31 | MHIPNPDOC ---
[facility] Progress Note Progress Note Date of Service: 07/16/2019 History of Present Illness The patient a 47-year-old woman was referred from her outpatient psychiatrist due to suicidal thoughts. The patient appears highly depressed and very slowed with a extremely long latency on answers. She is able to answer some questions, however, for the majority of the interview is painstaking with only a review of systems able to be done. She reports some depressed mood, loss of Interest, but appears to deny any significant slowing or cognitive side effects. She is notable to have also medical marijuana of which appears to be around the same time depressive symptoms would have gotten worse. She describes that she was recently taken off of duloxetine due to reported seizures at [facility]. Interval History The patient appeared to make positive progress yesterday with the Ativan trial becoming more reactive and more talkative, suggesting a catatonic state. The patient is met with today. She describes that the 0.5 mg TID is too sedating. She does report feeling "odd." She remains with significant latency and recall. The patient's venlafaxine is at 75 still. She denies any particular side effects related to it such as palpitations or GI upset. 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 We'll do medica l workup to rule out this as a possibility for catatonia, and she has not reportedly had an episode similar to this. Her continues to call the unit. He's reportedly one of her main stressors and appears to be very interested in her care. She has had no behavioral outbursts in the unit, but has been noted to be very slow and almost unreactive at times. Review Of Systems Reports a 9/10 depression with improving business and fatigue. Psychotherapy None on this visit. Vital Signs Reviewed. Mental Status Examination General: Well dressed with poor hygiene Speech: High latency. Thought processes: Distractible. MSK: Extreme psychomotor slowing. Thought content: Obliviousness. Abstract reasoning, and computation: [place]. Description of associations: Intact Description of abnormal or psychotic thoughts: Denies any suicidal or homicidal ideation. Denies any auditory or visual hallucinations. Does not appear to be responding to internal stimuli. Does not appear to be endorsing any bizarre or paranoid ideation. Judgment: Poor Insight: Poor Orientation: Alert and orientated 3 Cognition: Slowed Recent and remote memory: Impaired Attention span and concentration: Impaired Fund of knowledge: Unable to determine Mood: "Fine" Affect: Profoundly flat with no reactivity Diagnoses Major depressive disorder, severe without psychosis. Catatonia, unspecified Cannabis use disorder. Assessment and Plan The patient appears to be making some improvement. We'll increase venlafaxine to 112.5 mg extended release, change Ativan to 0.25 mg BID for catatonia, workup with EEG non-sleep deprived, CRP and ESR and erythrocyte sedimentation rate in order to rule out potential medical causes for her catatonia due to the severity and suddenness of symptoms. Disposition The patient will need a further admission as her depressive symptoms and catatonia are extreme. Her symptoms are so debilitating that she would not be likely to take care of herself in any capacity. She requires significant prompting and help from staff in order to accomplish the most basic needs and thus would pose a danger to herself as an outpatient to her current condition. Time Spent 15 minutes [id number], 20 minutes coordination of care. Friday Vital Signs Vital Signs Date Time Temp Pulse Resp B/P (MAP) Pulse Ox O2 Delivery O2 Flow Rate FiO2 07/16/19 06:32 99.2 71 14 100/57 (71) 07/14/19 19:58 Room Air 07/14/19 19:55 100 Current Medications Current Medications Medications (Trade) Dose Ordered Sig/Ankita Route PRN Reason Start Time Stop Time Status Last Admin Dose Admin Acetaminophen (Tylenol Tab) 650 mg Q6HP PRN PO HEADACHE or DISCOMFORT 07/14/19 18:00 07/15/19 22:47 Al Hydrox/Mg Hydrox/Simethicone (Mylanta) 30 ml Q4HP PRN PO HEARTBURN/INDIGESTION 07/14/19 18:00 Aripiprazole (AbiLIFY) 10 mg QHS PO 07/15/19 21:00 07/15/19 21:00 DC Bupropion HCl (Wellbutrin Xl) 150 mg DAILY PO 07/16/19 09:00 07/16/19 08:36 Buspirone HCl (Buspar) 10 mg BID PO 07/15/19 09:00 07/15/19 12:01 DC 07/15/19 10:51 Home Med (Med Rec Complete!) ASDIRECTED XX 07/14/19 20:15 8/21/19 20:15 DC Magnesium Hydroxide (Milk Of Magnesia) 30 ml DAILYPRN PRN PO CONSTIPATION 07/14/19 18:00 Methadone HCl (Dolophine) 150 mg DAILY PO 07/15/19 09:00 07/16/19 08:36 Nicotine (Nicoderm Cq 21mg) 1 patch DAILY TD 07/15/19 09:00 07/16/19 08:36 Trazodone HCl (Desyrel) 50 mg QHSP PRN PO INSOMNIA 07/14/19 18:00 07/15/19 21:56 Allergies Coded Allergies: No Known Allergies (Unverified , 07/14/19) MICHEAL MOSES DO Jul 16, 2019 11:31
[2019-07-16 13:02] VITALS: BP 100/57
[2019-07-16 18:28] VITALS: BP 98/58
[2019-07-16] MEDS: traZODone 50 MG TAB PO PRN (20:32)
[2019-07-16] MEDS ORDERED: ARIPiprazole 10 MG TAB PO ONE (20:45)
[2019-07-17 06:35] VITALS: BP 93/53
[2019-07-17] MEDS: buPROPion **XL** TABLET 150MG (WELLBUTRIN XL) PO SCH (08:51)
[2019-07-17] MEDS: NICOTINE 21MG/24HR 1 EA TRANSDERMAL TD SCH (08:51)
[2019-07-17] MEDS: METHADONE 10 MG TAB (S0109) PO SCH (08:52)
--- NOTE | 2019-07-17 15:08 | MHIPNPDOC ---
[facility] Progress Note Progress Note Date of Service: 07/17/2019 History of Present Illness The patient, a 23-year-old woman who had recently been on the inpatient mental health unit reportedly for suicidal thoughts, represented several times in the interim reportedly once for which she had claimed to be a non-suicidal overdose and had been discharged from the emergency room, however, she had returned stating that in fact this was a suicide attempt and that she still in fact was suicidal and requested to be admitted to the inpatient unit for her safety as she felt her depression becoming worse with severe fatigue, concentration and focus deficits and a general lack of interest in life. Interval History The patient reports that she is feeling somewhat better on the Abilify 10 mg daily and the Wellbutrin 150 mg. She does report she does not feel "ready" for discharge on Friday as she reports she has not been attending groups. After discussion, the patient states that she will attend groups. Nursing has noted that she does appear to remain fairly isolated in room at times. She reports continued trouble with fatigue and loss of interest. Requests having BuSpar returned to her. Review Of Systems Denies any headaches, belly upset, tremors, agitation, or anxiety increase since the Wellbutrin started, or any side effects from Abilify. Reports continued dif ficulty coping with stressors. Psychotherapy None on this visit. Vital Signs Reviewed. Mental Status Examination General: Well dressed with good hygiene Speech: Spontaneous and fluid Thought processes: Linear and logical MSK: Smooth and coordinated gait, no signs of tremors or involuntary orofacial movements Thought content: Future orientated Abstract reasoning, and computation: Intact Description of associations: Intact Description of abnormal or psychotic thoughts: Admits to passive suicidal andrea ation, fleeting at times. Denies homicidal ideation. Denies auditory or visual hallucinations Judgment: poor Insight: poor Orientation: Alert and orientated 3 Cognition: Grossly normal Recent and remote memory: Intact Attention span and concentration: Intact Fund of knowledge: Adequate Mood: "bad" Affect: Mildly dysthymic and constricted Diagnoses Unspecified depressive disorder. Rule out MDD versus adjustment versus substance-induced from methamphetamine. Unspecified trauma, stress-related disorder. Rule out PTSD versus BPD. Opioid use disorder, severe, on maintenance treatment. Methamphetamine use disorder, unspecified. Tobacco use disorder, severe. Assessment and Plan Patient appears to be making some progress, although she likely has difficulty tolerating her home environment due to a number of different social concerns. Will increase Wellbutrin to 300 mg nightly, Continue Abilify 10 mg nightly, and start BuSpar 5 mg BID. Change Wellbutrin 300 mg nightly to 300 mg daily extended release. Disposition Patient will need a further in-patient admission in order to stabilize her depression and improve her outpatient safety profile. Time Spent 15 minutes [id number]. Friday Vital Signs Vital Signs Date Time Temp Pulse Resp B/P (MAP) Pulse Ox O2 Delivery O2 Flow Rate FiO2 07/17/19 06:35 98.0 80 14 93/53 (66) 07/16/19 13:02 100 07/16/19 13:02 Room Air Current Medications Current Medications Medications (Trade) Dose Ordered Sig/Ankita Route PRN Reason Start Time Stop Time Status Last Admin Dose Admin Acetaminophen (Tylenol Tab) 650 mg Q6HP PRN PO HEADACHE or DISCOMFORT 07/14/19 18:00 07/15/19 22:47 Al Hydrox/Mg Hydrox/Simethicone (Mylanta) 30 ml Q4HP PRN PO HEARTBURN/INDIGESTION 07/14/19 18:00 Aripiprazole (AbiLIFY) 10 mg QHS PO 07/15/19 21:00 07/15/19 21:00 DC Aripiprazole (AbiLIFY) 10 mg QHS PO 07/17/19 21:00 Bupropion HCl (Wellbutrin Xl) 150 mg DAILY PO 07/16/19 09:00 07/17/19 08:51 Buspirone HCl (Buspar) 10 mg BID PO 07/15/19 09:00 07/15/19 12:01 DC 07/15/19 10:51 Home Med (Med Rec Complete!) ASDIRECTED XX 07/14/19 20:15 07/14/19 20:15 DC Magnesium Hydroxide (Milk Of Magnesia) 30 ml DAILYPRN PRN PO CONSTIPATION 07/14/19 18:00 Methadone HCl (Dolophine) 150 mg DAILY PO 07/15/19 09:00 07/17/19 08:52 Nicotine (Nicoderm Cq 21mg) 1 patch DAILY TD 07/15/19 09:00 07/17/19 08:51 Trazodone HCl (Desyrel) 50 mg QHSP PRN PO INSOMNIA 07/14/19 18:00 07/16/19 20:32 Allergies Coded Allergies: No Known Allergies (Unverified , 07/14/19) MICHEAL MOSES DO Jul 17, 2019 15:08
[2019-07-17] MEDS ORDERED: busPIRone 5 MG TAB PO ONE (16:15)
[2019-07-17 18:00] VITALS: BP 100/60
[2019-07-17] MEDS: traZODone 50 MG TAB PO PRN (20:51)
[2019-07-17] MEDS: ARIPiprazole 10 MG TAB PO SCH (20:51)
[2019-07-17] MEDS: busPIRone 5 MG TAB PO SCH (20:51)
[2019-07-18 06:38] VITALS: BP 95/50
[2019-07-18] MEDS: NICOTINE 21MG/24HR 1 EA TRANSDERMAL TD SCH (09:20)
[2019-07-18] MEDS: METHADONE 10 MG TAB (S0109) PO SCH (09:20)
[2019-07-18] MEDS: buPROPion **XL** TABLET 150MG (WELLBUTRIN XL) PO SCH (09:20)
[2019-07-18] MEDS: busPIRone 5 MG TAB PO SCH (09:20)
--- NOTE | 2019-07-18 17:49 | MHIPNPDOC ---
[facility] Progress Note Progress Note Date of Service: 07/18/2019 History of Present Illness The patient, a 23-year-old woman who had recently been on the inpatient mental health unit reportedly for suicidal thoughts, represented several times in the interim reportedly once for which she had claimed to be a non-suicidal overdose and had been discharged from the emergency room, however, she had returned stating that in fact this was a suicide attempt and that she still in fact was suicidal and requested to be admitted to the inpatient unit for her safety as she felt her depression becoming worse with severe fatigue, concentration and focus deficits and a general lack of interest in life. Interval History The patient has met with briefly today. She describes that she is feeling still depressed, fatigued and has insomnia. She has been sleeping in her bed the majority of the day, not getting up for groups. She reports feeling not ready for discharge tomorrow. She describes that she wishes to have her Buspar increased to her previous dose of 10 mg daily. Describes that she still has suicidal thoughts but denies any side effects from medication. No tremors, GI upset, constipation. Review Of Systems As above. Psychotherapy None on this visit. Vital Signs Reviewed. Mental Status Examination General: Well dressed with good hygiene Speech: Spontaneous and fluid Thought processes: Linear and logical MSK: Smooth and coordinated gait, no signs of tremors or involuntary orofacial movements Thought content: Future orientated Abstract reasoning, and computation: Intact Description of associations: Intact Description of abnormal or psychotic thoughts: Admits to passive suicidal ideation, fleeting at times. Denies homicidal ideation. Denies auditory or visual hallucinations Judgment: poor Insight: poor Orientation: Alert and orientated 3 Cognition: Grossly normal Recent and remote memory: Intact Attention span and concentration: Intact Fund of knowledge: Adequate Mood: "bad" Affect: Mildly dysthymic and constricted Diagnoses Unspecified depressive disorder. Rule out MDD versus adjustment versus substance-induced from methamphetamine. Unspecified trauma, stress-related disorder. Rule out PTSD versus BPD. Opioid use disorder, severe, on maintenance treatment. Methamphetamine use disorder, unspecified. Tobacco use disorder, severe. Assessment and Plan The patient will be increased to 10 mg of Buspar. Continue Abilify 10 mg at night and Wellbutrin 300 mg daily. Will encourage patient to go to groups. Will need more extensive increase on medications or considering modafinil due to the fatigue secondary likely to her long-term methadone. Disposition Patient will need a further in-patient admission in order to stabilize her depression and improve her outpatient safety profile. Time Spent 15 minutes face to face. Friday Vital Signs Vital Signs Date Time Temp Pulse Resp B/P (MAP) Pulse Ox O2 Delivery O2 Flow Rate FiO2 07/18/19 06:38 97.6 69 12 95/50 (65) 07/16/19 13:02 100 07/16/19 13:02 Room Air Current Medications Current Medications Medications (Trade) Dose Ordered Sig/Ankita Route PRN Reason Start Time Stop Time Status Last Admin Dose Admin Acetaminophen (Tylenol Tab) 650 mg Q6HP PRN PO HEADACHE or DISCOMFORT 07/14/19 18:00 07/15/19 22:47 Al Hydrox/Mg Hydrox/Simethicone (Mylanta) 30 ml Q4HP PRN PO HEARTBURN/INDIGESTION 07/14/19 18:00 Aripiprazole (AbiLIFY) 10 mg QHS PO 07/15/19 21:00 07/15/19 21:00 DC Aripiprazole (AbiLIFY) 10 mg QHS PO 07/17/19 21:00 07/17/19 20:51 Bupropion HCl (Wellbutrin Xl) 150 mg DAILY PO 07/16/19 09:00 07/17/19 15:44 DC 07/17/19 08:51 Bupropion HCl (Wellbutrin Xl) 300 mg DAILY PO 07/18/19 09:00 07/18/19 09:20 Buspirone HCl (Buspar) 5 mg BID PO 07/17/19 21:00 07/18/19 09:20 Buspirone HCl (Buspar) 10 mg BID PO 07/15/19 09:00 07/15/19 12:01 DC 07/15/19 10:51 Home Med (Med Rec Complete!) ASDIRECTED XX 07/14/19 20:15 07/14/19 20:15 DC Magnesium Hydroxide (Milk Of Magnesia) 30 ml DAILYPRN PRN PO CONSTIPATION 07/14/19 18:00 Methadone HCl (Dolophine) 150 mg DAILY PO 07/15/19 09:00 07/18/19 09:20 Nicotine (Nicoderm Cq 21mg) 1 patch DAILY TD 07/15/19 09:00 07/18/19 09:20 Trazodone HCl (Desyrel) 50 mg QHSP PRN PO INSOMNIA 07/14/19 18:00 07/17/19 20:51 Allergies Coded Allergies: No Known Allergies (Unverified , 07/14/19) MICHEAL MOSES DO Jul 18, 2019 17:49
[2019-07-18 18:00] VITALS: BP 105/66
[2019-07-18] MEDS: ARIPiprazole 10 MG TAB PO SCH (20:15)
[2019-07-18] MEDS: busPIRone 10 MG TAB PO SCH (20:15)
[2019-07-18] MEDS: traZODone 50 MG TAB PO PRN (21:05)
[2019-07-18] MEDS: ACETAMINOPHEN TAB 650MG DOSE (2X325MG) PO PRN (21:25)
[2019-07-19 06:33] VITALS: BP 90/52
[2019-07-19] MEDS: NICOTINE 21MG/24HR 1 EA TRANSDERMAL TD SCH (08:27)
[2019-07-19] MEDS: busPIRone 10 MG TAB PO SCH ×2 (08:27→20:35)
[2019-07-19] MEDS: buPROPion **XL** TABLET 150MG (WELLBUTRIN XL) PO SCH (08:28)
[2019-07-19] MEDS: METHADONE 10 MG TAB (S0109) PO SCH (08:28)
--- NOTE | 2019-07-19 14:43 | MHIPNPDOC ---
[facility] Progress Note Progress Note Date of Service: 07/19/2019 History of Present Illness The patient is a 23-year-old woman who had recently been on the inpatient mental health unit reportedly for suicidal thoughts, represented several times in the interim reportedly once for which she had claimed to be a non-suicidal overdose and had been discharged from the emergency room, however, she had returned stating that in fact this was a suicide attempt and that she still in fact was suicidal and requested to be admitted to the inpatient unit for her safety as she felt her depression becoming worse with severe fatigue, concentration and focus deficits and a general lack of interest in life. Interval History The patient is met with today and she reports some improving hopelessness, fatigue, loss of interest and she has been trying to attend groups. She reports improved motivation and has been engaging more with her care and less negative. The patient reports some anxiety, however, significant psychoeducation is undertaken with anxiety and the avoidance that many patients utilize. Patient has not had any behavioral problems on the unit. Denies any side effects from any medications. No tremors, GI upset, headaches, palpitations or nausea noted. Review Of Systems As above. Psychotherapy None on this visit. Vital Signs Reviewed. Mental Status Examination General: Well dressed with good hygiene Speech: Spontaneous and fluid Thought processes: Linear and logical MSK: Smooth and coordinated gait, no signs of tremors or involuntary orofacial movements Thought content: Future orientated Abstract reasoning, and computation: Intact Description of associations: Intact Description of abnormal or psychotic thoughts: Admits to passing suicidal ideation with no plan or intention. Denies homicidal ideations. Denies auditory or visual hallucinations. Does not appear to be responding to internal stimuli. Judgment: fair Insight: fair Orientation: Alert and orientated 3 Cognition: Grossly normal Recent and remote memory: Intact Attention span and concentration: Intact Fund of knowledge: Adequate Mood: "okay" Affect: Improving with more reactivity. Diagnoses Unspecified depressive disorder. Rule out MDD versus adjustment versus substance-induced from methamphetamine. Unspecified trauma, stress-related disorder. Rule out PTSD versus BPD. Opioid use disorder, severe, on maintenance treatment. Methamphetamine use disorder, unspecified. Tobacco use disorder, severe. Assessment and Plan The patient appears to be making progress. Her BuSpar will be continued at 10 mg. All the medications same. Making progress with possible discharge later this week. Added 10 mg of Serax every two days as part of a behavioral plan to help the patient utilize more coping skills. Instructed the patient extensively on this process. Disposition The patient will need further inpatient admission in order to resolve her suicidality and depression, which will likely be in the next few days as she is making more progress. Time Spent 30 minutes of [id number] time with greater than 50% of time spent on counseling/coordination of care. Friday Vital Signs Vital Signs Date Time Temp Pulse Resp B/P (MAP) Pulse Ox O2 Delivery O2 Flow Rate FiO2 07/19/19 06:33 99.8 70 12 90/52 (65) 07/16/19 13:02 100 07/16/19 13:02 Room Air Current Medications Current Medications Medications (Trade) Dose Ordered Sig/Ankita Route PRN Reason Start Time Stop Time Status Last Admin Dose Admin Acetaminophen (Tylenol Tab) 650 mg Q6HP PRN PO HEADACHE or DISCOMFORT 07/14/19 18:00 07/18/19 21:25 Al Hydrox/Mg Hydrox/Simethicone (Mylanta) 30 ml Q4HP PRN PO HEARTBURN/INDIGESTION 07/14/19 18:00 Aripiprazole (AbiLIFY) 10 mg QHS PO 07/15/19 21:00 07/15/19 21:00 DC Aripiprazole (AbiLIFY) 10 mg QHS PO 07/17/19 21:00 07/18/19 20:15 Bupropion HCl (Wellbutrin Xl) 150 mg DAILY PO 07/16/19 09:00 07/17/19 15:44 DC 07/17/19 08:51 Bupropion HCl (Wellbutrin Xl) 300 mg DAILY PO 07/18/19 09:00 07/19/19 08:28 Buspirone HCl (Buspar) 5 mg BID PO 07/17/19 21:00 07/18/19 19:54 DC 07/18/19 09:20 Buspirone HCl (Buspar) 10 mg BID PO 07/15/19 09:00 07/15/19 12:01 DC 07/15/19 10:51 Buspirone HCl (Buspar) 10 mg BID PO 07/18/19 21:00 07/19/19 08:27 Home Med (Med Rec Complete!) ASDIRECTED XX 07/14/19 20:15 07/14/19 20:15 DC Magnesium Hydroxide (Milk Of Magnesia) 30 ml DAILYPRN PRN PO CONSTIPATION 07/14/19 18:00 Methadone HCl (Dolophine) 150 mg DAILY PO 07/15/19 09:00 07/19/19 08:28 Nicotine (Nicoderm Cq 21mg) 1 patch DAILY TD 07/15/19 09:00 07/19/19 08:27 Trazodone HCl (Desyrel) 50 mg QHSP PRN PO INSOMNIA 07/14/19 18:00 07/18/19 21:05 Allergies Coded Allergies: No Known Allergies (Unverified , 07/14/19) MICHEAL MOSES DO Jul 19, 2019 14:43
[2019-07-19] MEDS ORDERED: OXAZEPAM 10 MG CAP PO PRN (17:15)
[2019-07-19 18:12] VITALS: BP 89/54
[2019-07-19] MEDS: ARIPiprazole 10 MG TAB PO SCH (20:35)
[2019-07-19] MEDS: traZODone 50 MG TAB PO PRN (20:35)
[2019-07-20 06:32] VITALS: BP 100/60
[2019-07-20] MEDS: busPIRone 10 MG TAB PO SCH ×2 (08:47→20:45)
[2019-07-20] MEDS: METHADONE 10 MG TAB (S0109) PO SCH (08:47)
[2019-07-20] MEDS: buPROPion **XL** TABLET 150MG (WELLBUTRIN XL) PO SCH (08:47)
[2019-07-20] MEDS: NICOTINE 21MG/24HR 1 EA TRANSDERMAL TD SCH (08:47)
[2019-07-20] MEDS: ACETAMINOPHEN TAB 650MG DOSE (2X325MG) PO PRN (17:16)
[2019-07-20 18:00] VITALS: BP 127/74
--- NOTE | 2019-07-20 20:31 | MHIPNPDOC ---
[facility] Progress Note Progress Note Date of Service: 07/20/2019 History of Present Illness The patient is a 23-year-old woman who had recently been on the inpatient mental health unit reportedly for suicidal thoughts, represented several times in the interim reportedly once for which she had claimed to be a non-suicidal overdose and had been discharged from the emergency room, however, she had returned stating that in fact this was a suicide attempt and that she still in fact was suicidal and requested to be admitted to the inpatient unit for her safety as she felt her depression becoming worse with severe fatigue, concentration and focus deficits and a general lack of interest in life. Interval History The patient is met with today and she reports improved mood, no suicidal ideation. She was able to attend groups. Her fatigue is resolving, hopelessness has vanished and her anxiety is improved well with no use of the Serax. She reports more positive coping skills and feeling ready for discharge. The patient reports that she is much more future oriented and focused with no side effects, denying tremors, headaches, GI upset, nausea or any other concerning side effects from her medications at this time. Staff report that she has been doing well. No behavioral problems attending groups. Review Of Systems As above. Psychotherapy None on this visit. Vital Signs Reviewed. Mental Status Examination General: Well dressed with good hygiene Speech: Spontaneous and fluid Thought processes: Linear and logical MSK: Smooth and coordinated gait, no signs of tremors or involuntary orofacial movements Thought content: Future orientated Abstract reasoning, and computation: Intact Description of associations: Intact Description of abnormal or psychotic thoughts: Denies any suicidal or homicidal ideation. Denies any auditory or visual hallucinations. Does not appear to be responding to internal stimuli. Does not appear to be endorsing any bizarre or paranoid ideation. Judgment: fair Insight: fair Orientation: Alert and orientated 3 Cognition: Grossly normal Recent and remote memory: Intact Attention span and concentration: Intact Fund of knowledge: Adequate Mood: "okay" Affect: Euthymic with a full range Diagnoses Unspecified depressive disorder. Rule out MDD versus adjustment versus substance-induced from methamphetamine. Unspecified trauma, stress-related disorder. Rule out PTSD versus BPD. Opioid use disorder, severe, on maintenance treatment. Methamphetamine use disorder, unspecified. Tobacco use disorder, severe. Assessment and Plan The patient appears to have made positive changes on the current medications and behavioral plan. Continue medications as below. We will not discharge with Serax outside of very limited supplies due to the co-prescription with methadone. Disposition Discharged tomorrow. Time Spent 10 minutes [id number]. Friday Vital Signs Vital Signs Date Time Temp Pulse Resp B/P (MAP) Pulse Ox O2 Delivery O2 Flow Rate FiO2 07/20/19 18:00 98.1 89 18 127/74 (91) 07/16/19 13:02 100 07/16/19 13:02 Room Air Current Medications Current Medications Medications (Trade) Dose Ordered Sig/Ankita Route PRN Reason Start Time Stop Time Status Last Admin Dose Admin Acetaminophen (Tylenol Tab) 650 mg Q6HP PRN PO HEADACHE or DISCOMFORT 07/14/19 18:00 07/20/19 17:16 Al Hydrox/Mg Hydrox/Simethicone (Mylanta) 30 ml Q4HP PRN PO HEARTBURN/INDIGESTION 07/14/19 18:00 Aripiprazole (AbiLIFY) 10 mg QHS PO 07/15/19 21:00 07/15/19 21:00 DC Aripiprazole (AbiLIFY) 10 mg QHS PO 07/17/19 21:00 07/19/19 20:35 Bupropion HCl (Wellbutrin Xl) 150 mg DAILY PO 07/16/19 09:00 07/17/19 15:44 DC 07/17/19 08:51 Bupropion HCl (Wellbutrin Xl) 300 mg DAILY PO 07/18/19 09:00 07/20/19 08:47 Buspirone HCl (Buspar) 5 mg BID PO 07/17/19 21:00 07/18/19 19:54 DC 07/18/19 09:20 Buspirone HCl (Buspar) 10 mg BID PO 07/15/19 09:00 07/15/19 12:01 DC 07/15/19 10:51 Buspirone HCl (Buspar) 10 mg BID PO 07/18/19 21:00 07/20/19 08:47 Home Med (Med Rec Complete!) ASDIRECTED XX 07/14/19 20:15 07/14/19 20:15 DC Magnesium Hydroxide (Milk Of Magnesia) 30 ml DAILYPRN PRN PO CONSTIPATION 07/14/19 18:00 Methadone HCl (Dolophine) 150 mg DAILY PO 07/15/19 09:00 07/20/19 08:47 Nicotine (Nicoderm Cq 21mg) 1 patch DAILY TD 07/15/19 09:00 07/20/19 08:47 Oxazepam (Serax) 10 mg Q2D PRN PO anxiety 07/19/19 17:15 07/19/19 18:05 Trazodone HCl (Desyrel) 50 mg QHSP PRN PO INSOMNIA 07/14/19 18:00 07/19/19 20:35 Allergies Coded Allergies: No Known Allergies (Unverified , 07/14/19) MICHEAL MOSES DO Jul 20, 2019 20:31
[2019-07-20] MEDS: traZODone 50 MG TAB PO PRN (20:45)
[2019-07-20] MEDS: ARIPiprazole 10 MG TAB PO SCH (20:45)
[2019-07-21 06:10] VITALS: BP 99/50
[2019-07-21] MEDS: METHADONE 10 MG TAB (S0109) PO SCH (08:53)
[2019-07-21] MEDS: buPROPion **XL** TABLET 150MG (WELLBUTRIN XL) PO SCH (08:53)
[2019-07-21] MEDS: busPIRone 10 MG TAB PO SCH (08:53)
[2019-07-21] MEDS: NICOTINE 21MG/24HR 1 EA TRANSDERMAL TD SCH (09:00)
[2019-07-21] MEDS ORDERED: NICO21PAT TD (10:50)
[2019-07-21] MEDS ORDERED: WELLTAB40 PO (10:50)
--- NOTE | 2019-07-21 10:51 | MHDSPDOC ---
[facility] Discharge Summary Discharge Summary DATE OF ADMISSION: Jul 14, 2019 at 18:10 DATE OF DISCHARGE: 07/21/19 Date of Service: 07/21/2019 Diagnoses Unspecified depressive disorder. Rule out MDD versus adjustment versus substance-induced from methamphetamine. Unspecified trauma, stress-related disorder. Rule out PTSD versus BPD. Opioid use disorder, severe, on maintenance treatment. Methamphetamine use disorder, unspecified. Tobacco use disorder, severe. History of Present Illness The patient is a 23-year-old woman who had recently been on the inpatient mental health unit reportedly for suicidal thoughts, represented several times in the interim reportedly once for which she had claimed to be a non-suicidal overdose and had been discharged from the emergency room, however, she had returned stating that in fact this was a suicide attempt and that she still in fact was suicidal and requested to be admitted to the inpatient unit for her safety as she felt her depression becoming worse with severe fatigue, concentration and focus deficits and a general lack of interest in life. Consultants Involved Hospitalist/PCP screening Treatment and Progress On The Unit The patient was admitted to the unit and subsequently tried on Wellbutrin initially 150 mg daily with the discontinuation of her BuSpar and Abilify as the patient noted that she felt they didn't help sufficiently well with her depression. She had reported that she had used some methamphetamine prior to presenting suicidal. She was treated with increasing Wellbutrin and resumed on BuSpar 10 mg daily and Abilify 10 mg nightly with very positive effects. She became more motivated, attended groups and had redact any suicidal ideation, cooperated with discharge planning, was attending to all her needs on the unit well. She had no major behavioral problems and requested to leave. At that time, she did not meet involuntary criteria as she was not demonstrating any overt threats to herself or others and was attending to her needs and declined a further voluntary admission. Discharge Assessment The patient a 23-year-old woman with likely borderline personality disorder as well as substance use difficulties, presents with depression after recent methamphetamine use. Her depression at this time and presenting problem appears likely secondary to methamphetamine withdrawal. However, it is unclear as she has a long history of use. Mental Status Examination General: Well dressed with good hygiene Speech: Spontaneous and fluid Thought processes: Linear and logical MSK: Smooth and coordinated gait, no signs of tremors or involuntary orofacial movements Thought content: Future orientated Abstract reasoning, and computation: Intact Description of associations: Intact Description of abnormal or psychotic thoughts: Denies any suicidal or homicidal ideation. Denies any auditory or visual hallucinations. Does not appear to be responding to internal stimuli. Does not appear to be endorsing any bizarre or paranoid ideation. Judgment: fair Insight: fair Orientation: Alert and orientated 3 Cognition: Grossly normal Recent and remote memory: Intact Attention span and concentration: Intact Fund of knowledge: Adequate Mood: "okay" Affect: Euthymic with a full range Follow Up The social work team worked during the predischarge meeting in order to evaluate for further issues of lethality address them fully before discharge. They worked on safety planning with the patient's family members in order to ensure that the patient will have a safe and effective discharge. Time Spent The amount of time spent in the coordination of care for this patient was appro ximately 30 minutes. Friday Vital Signs/I&Os Vital Signs Date Time Temp Pulse Resp B/P (MAP) Pulse Ox O2 Delivery O2 Flow Rate FiO2 07/21/19 06:10 98.2 74 14 99/50 (66) 07/16/19 13:02 100 07/16/19 13:02 Room Air Medications Scheduled Aripiprazole (Aripiprazole) 10 Mg Tablet, 10 MG PO QHS for mood for 7 Days, #7 Bupropion HCl (Wellbutrin Xl) 300 Mg Tab.er.24h, 1 TAB PO QAM for mood for 7 Days, #7 Buspirone HCl (Buspirone HCl) 10 Mg Tablet, 10 MG PO BID for anxiety for 7 Days, #14 Methadone HCl (Methadone HCl) 10 Mg/5 Ml Solution, 150 MG PO DAILY, (Reported) TAKES AROUND 08:30 EVERY MORNING Nicotine (Nicotine Patch) 21 Mg Patch.td24, 1 PATCH TD DAILY for smoking for 30 Days, #30 Scheduled PRN Hydroxyzine HCl (Hydroxyzine HCl) 50 Mg Tablet, 50 MG PO Q6H PRN for ANXIETY for 7 Days, #20 Trazodone HCl (Trazodone HCl) 50 Mg Tablet, 50 MG PO QHS PRN for INSOMNIA for 7 Days, #7 Allergies Coded Allergies: No Known Allergies (Unverified , 07/14/19) MICHEAL MOSES DO Jul 21, 2019 10:51
[2019-07-21] MEDS ORDERED: ARIP1TAB PO (11:45)
[2019-07-21] MEDS ORDERED: TRAZ-252 PO (11:45)
[2019-07-21] MEDS ORDERED: HYDR50TA70 PO (11:45)
[2019-07-21] MEDS ORDERED: BUSP10TA PO (11:45)
== END 2019-07-21 11:56 | disposition home or self-care (01) | DRG 754 ==
LOC: M ED 15:33 → M ED INP 18:10 → M PSY 19:43
PROVIDERS: ADMIT Psychiatry & Neurology Addiction Medicine; ATTEND Psychiatry & Neurology Addiction Medicine
DX: F32.9 Major depressive disorder, single episode, unspecified (principal); F11.14 Opioid abuse with opioid-induced mood disorder; F17.200 Nicotine dependence, unspecified, uncomplicated; F43.10 Post-traumatic stress disorder, unspecified; Z79.899 Other long term (current) drug therapy

== ENCOUNTER 2019-10-13 13:23 | Emergency (ER) | payer OTHER ==
[~2019-10-13] VITALS: Ht 147.3 cm; Wt 48.9 kg
[~2019-10-13 13:23] MED LIST changes: +ARIP1TAB PO; +HYDR50TA70 PO; +METH10SO PO; +NICO21PAT TD; +WELLTAB40 PO
[2019-10-13 14:11] LABS: BASO % 0.3 % (0.0-1.0); EOS % 0.1 % (0.0-3.0); HEMATOCRIT 40.6 % (36.0-47.0); HEMOGLOBIN 13.9 g/dl (12.0-15.5); LYMPH # 2.7 10^3/uL (1.5-5.0); LYMPH % 19.2 % (24.0-44.0); MEAN CORPUSCULAR HGB CONC 34.2 g/dl (32.0-36.5); MEAN CORPUSCULAR VOLUME 93.5 fl (80.0-96.0); MONO # 0.9 10^3/uL (0.0-0.8); MONO % 6.3 % (0.0-5.0); NEUTROPHILS # 10.5 10^3/uL (1.5-8.5); NEUTROPHILS % 73.7 % (36.0-66.0); PLATELET COUNT, AUTOMATED 362 10^3/uL (150-450); RED BLOOD COUNT 4.34 10^6/uL (4.00-5.40); WHITE BLOOD COUNT 14.2 10^3/uL (4.0-10.0)
[2019-10-13 15:11] LABS: ALT/SGPT 16 U/L (12-78); BILIRUBIN,DIRECT 0.2 MG/DL (0.0-0.2); BILIRUBIN,TOTAL 0.5 MG/DL (0.2-1.0); BLOOD UREA NITROGEN 9 MG/DL (7-18); CALCIUM LEVEL 9.7 MG/DL (8.5-10.1); CARBON DIOXIDE LEVEL 24 MEQ/L (21-32); CHLORIDE LEVEL 103 MEQ/L (98-107); CREATININE FOR GFR 0.72 MG/DL (0.55-1.30); GLOMERULAR FILTRATION RATE > 60.0 (>60); GLUCOSE, FASTING 79 MG/DL (70-100); HCG, SERUM QUANTITATIVE 64905 MIU/ML; LIPASE 42 U/L (73-393); POTASSIUM SERUM 4.3 MEQ/L (3.5-5.1); SODIUM LEVEL 136 MEQ/L (136-145)
--- NOTE | 2019-10-13 16:25 | REP ---
[facility] ULTRASOUND: Real-time sonographic evaluation of the gravid uterus performed utilizing transabdominal and endovaginal technique. There is a single living intrauterine gestation. The estimated gestational age is 6 weeks 1 day based on a crown rump length of 5 mm, EDC 06/06/2020. heart rate is 114 beats per minute. There is no subchorionic hemorrhage. Ovaries could not be visualized with imaging limited due to patient pain and limited exam tolerance. Electronically Signed by Garrison Gonzalez MD 10/14/2019 11:25 A
[2019-10-13] MEDS ORDERED: MORPHINE 4 MG/ML 1ML VIAL/SYRINGE (J2270) IV ONE (16:45)
[2019-10-13] MEDS ORDERED: PROMETHAZINE INJ 25 MG/ML VIAL (J2550) IV ONE (16:45)
--- NOTE | 2019-10-13 17:13 | REPVR ---
PROCEDURE INFORMATION: Exam: US Pelvis Limited, Transabdominal Exam date and time: 10/13/2019 4:55 PM Age: 23 years old Clinical history: Pelvic pain; Additional info: R/O appendicitis TECHNIQUE: Imaging protocol: Real-time transabdominal pelvic ultrasound with image documentation. Limited exam. COMPARISON: No relevant prior studies available. FINDINGS: Right adnexa: RIGHT ovary 3.8 x 2.5 x 1.9 cm. RIGHT ovarian 1.9 cm follicle. Normal color and pulsed Doppler of the RIGHT ovary. No mass or cyst. The arterial resistive index is 0.48. No evidence of torsion. Left adnexa: LEFT ovary 1.8 x 2.2 x 1.9 cm. Normal color and pulsed Doppler blood flow. The arterial resistive index is 0.48. No evidence of torsion. Appendix: The vermiform appendix is not definitively identified on this examination. Other findings: Compressible RIGHT lower quadrant bowel demonstrated. IMPRESSION: 1. The vermiform appendix is not definitively identified on this examination. There is, however, no RIGHT lower quadrant abnormality identified to suggest appendicitis. 2. No evidence of ovarian torsion. Electronically signed by: Ernesto Chaudhry On 10/13/2019 17:12:43 PM
--- NOTE | 2019-10-13 20:55 | REPVR ---
PROCEDURE INFORMATION: Exam: MR Abdomen Without Contrast Exam date and time: 10/13/2019 8:15 PM Age: 23 years old Clinical history: Abdominal tenderness; Patient HX: 6wks rlq pain; Additional info: R/O appendicitis TECHNIQUE: Imaging protocol: MR of the abdomen without contrast. COMPARISON: No relevant prior studies available. FINDINGS: Liver: No mass. Gallbladder and bile ducts: Unremarkable. No stones. No ductal dilation. Pancreas: Unremarkable. No ductal dilation. Spleen: Unremarkable. No splenomegaly. Adrenals: Unremarkable. No mass. Kidneys and ureters: Unremarkable. No solid mass. No hydronephrosis. Stomach and bowel: Unremarkable. No signs of appendicitis. Intraperitoneal space: Mild free fluid in the pelvis. Arteries: No abdominal aortic aneurysm. Reproductive: An intrauterine gestational sac is noted. Small cyst in the right ovary. No hydrosalpinx. Bones/joints: Unremarkable. Soft tissues: Unremarkable. IMPRESSION: 1. Intrauterine gestational sac is noted. 2. Small cyst in the right ovary. 3. Mild free fluid in the pelvis. 4. No signs of appendicitis. Electronically signed by: Dale Gama On 10/13/2019 20:54:21 PM
[2019-10-13] MEDS ORDERED: ACET-683 PO (21:25)
[2019-10-13 21:38] VITALS: BP 96/55
== END 2019-10-13 22:09 | disposition home or self-care (01) ==
LOC: M ED 13:23
DX: O26.899 Other specified pregnancy related conditions, unspecified trimester (principal); R10.31 Right lower quadrant pain; O21.9 Vomiting of pregnancy, unspecified; R19.7 Diarrhea, unspecified; Z3A.01 Less than 8 weeks gestation of pregnancy; O34.81 Maternal care for other abnormalities of pelvic organs, first trimester; O99.340 Other mental disorders complicating pregnancy, unspecified trimester; O99.331 Smoking (tobacco) complicating pregnancy, first trimester; Z79.83 Long term (current) use of bisphosphonates; Z79.891 Long term (current) use of opiate analgesic; Z79.899 Other long term (current) drug therapy
CPT/HCPCS: 74181; 76801; 76830; 76857; 80048; 80076; 81001; 83690; 84702; 85025; 87086; 96374; 96375; 99284; J2270

== ENCOUNTER → 2019-10-27 | Outpatient (REF) | payer OTHER ==
[~2019-10-27] MED LIST changes: +ACET-683 PO
[2019-10-27 19:02] LABS: HEMATOCRIT 36.8 % (36.0-47.0); HEMOGLOBIN 12.4 g/dl (12.0-15.5); MEAN CORPUSCULAR HEMOGLOBIN 31.7 pg (27.0-33.0); MEAN CORPUSCULAR HGB CONC 33.7 g/dl (32.0-36.5); MEAN CORPUSCULAR VOLUME 94.1 fl (80.0-96.0); PLATELET COUNT, AUTOMATED 280 10^3/uL (150-450); RED BLOOD COUNT 3.91 10^6/uL (4.00-5.40); WHITE BLOOD COUNT 10.7 10^3/uL (4.0-10.0)
[2019-10-29 10:41] LABS: HEPATITIS B SURFACE ANTIGEN NEGATIVE (NEGATIVE); HEPATITIS C VIRUS ABY INDEX 0.1 INDEX (<0.8); HIV 1&2 SCREEN CENTAUR NEGATIVE (NEGATIVE); RUBELLA IgG QUALITATIVE IMMUNE (IMMUNE)
== END ==
LOC: M LAB REF 17:08
PROVIDERS: ATTEND Obstetrics & Gynecology
DX: Z34.81 Encounter for supervision of other normal pregnancy, first trimester (principal)

== ENCOUNTER → 2020-01-31 | Outpatient (CLI) | payer OTHER ==
[2020-01-31 13:02] LABS: HEMATOCRIT 34.1 % (36.0-47.0); HEMOGLOBIN 11.4 g/dl (12.0-15.5); MEAN CORPUSCULAR HEMOGLOBIN 32.5 pg (27.0-33.0); MEAN CORPUSCULAR HGB CONC 33.4 g/dl (32.0-36.5); MEAN CORPUSCULAR VOLUME 97.2 fl (80.0-96.0); PLATELET COUNT, AUTOMATED 257 10^3/uL (150-450); RED BLOOD COUNT 3.51 10^6/uL (4.00-5.40)
[2020-01-31 13:24] LABS: HCG, SERUM QUALITATIVE POSITIVE (NEGATIVE)
[2020-01-31 13:39] LABS: ALBUMIN 3.5 GM/DL (3.2-5.2); ALT/SGPT 16 U/L (12-78); BILIRUBIN,TOTAL 0.6 MG/DL (0.2-1.0); BLOOD UREA NITROGEN 9 MG/DL (7-18); CALCIUM LEVEL 9.1 MG/DL (8.5-10.1); CARBON DIOXIDE LEVEL 27 MEQ/L (21-32); CHLORIDE LEVEL 101 MEQ/L (98-107); GLOMERULAR FILTRATION RATE > 60.0 (>60); GLUCOSE, FASTING 73 MG/DL (70-100); POTASSIUM SERUM 4.7 MEQ/L (3.5-5.1); SODIUM LEVEL 135 MEQ/L (136-145); TOTAL PROTEIN 7.4 GM/DL (6.4-8.2)
[2020-01-31 13:48] LABS: HEPATITIS B SURFACE ANTIGEN NEGATIVE (NEGATIVE)
[2020-01-31 14:16] LABS: HEPATITIS C VIRUS ABY INDEX < 0.0 INDEX (<0.8); HIV 1&2 SCREEN CENTAUR NEGATIVE (NEGATIVE)
[2020-01-31 14:31] LABS: CHLAMYDIA DNA AMPLIFICATION NEGATIVE (NEGATIVE); GC DNA AMPLIFICATION NEGATIVE (NEGATIVE)
== END ==
LOC: M LAB 11:33
PROVIDERS: ATTEND Family Medicine
DX: F11.90 Opioid use, unspecified, uncomplicated (principal)

== ENCOUNTER → 2020-05-03 | Outpatient (CLI) | payer OTHER ==
[2020-05-03 12:50] LABS: HEMOGLOBIN 11.3 g/dl (12.0-15.5); MEAN CORPUSCULAR HEMOGLOBIN 32.9 pg (27.0-33.0); MEAN CORPUSCULAR HGB CONC 33.2 g/dl (32.0-36.5); MEAN CORPUSCULAR VOLUME 99.1 fl (80.0-96.0); PLATELET COUNT, AUTOMATED 269 10^3/uL (150-450); RED BLOOD COUNT 3.43 10^6/uL (4.00-5.40); WHITE BLOOD COUNT 9.3 10^3/uL (4.0-10.0)
== END ==
LOC: M LAB 10:51
PROVIDERS: ATTEND Obstetrics & Gynecology
DX: Z34.02 Encounter for supervision of normal first pregnancy, second trimester (principal); Z36.89 Encounter for other specified antenatal screening

== ENCOUNTER → 2020-05-09 | Outpatient (REF) | payer OTHER ==
[~2020-05-09] MED LIST changes: +DIPH50CA29 PO; +IBUP80TA PO; +OMEP10CASR PO; +WELLTAB38 PO
== END ==
LOC: M LAB REF 17:22
PROVIDERS: ATTEND Advanced Practice Midwife
DX: Z34.03 Encounter for supervision of normal first pregnancy, third trimester (principal)

== ENCOUNTER 2020-05-31 14:04 | Outpatient (CLI) | payer OTHER ==
[~2020-05-31] VITALS: Ht 147.3 cm; Wt 56.0 kg
[~2020-05-31 14:04] MED LIST changes: -DIPH50CA29 PO; -IBUP80TA PO; -OMEP10CASR PO; -WELLTAB38 PO
[2020-05-31 14:32] VITALS: BP 114/77
[2020-05-31 15:13] VITALS: BP 130/80
[2020-05-31 16:37] VITALS: BP 138/93
[2020-05-31 16:38] VITALS: BP 138/86
--- NOTE | 2020-06-01 05:24 | REP ---
[facility] ULTRASOUND: Real-time sonographic evaluation of gravid uterus performed. There is a single living intrauterine gestation. The estimated gestational age based on prior ultrasound is reportedly 39 weeks 1 day, EDC 06/06/2020. Today's measurements demonstrate an average ultrasound age of 37 weeks 0 days, with an estimated weight of 3246 grams, which is at the 38th percentile. BPD 91 mm = 37 weeks 1 day, 20th percentile HC 327 mm = 37 weeks 0 days, 14th percentile AC 346 mm = 38 weeks 3 days, 39th percentile Femur length 70 mm = 36 weeks 0 days, less than 5th percentile HC/AC ratio 0.95, normal range 0.89 to 1.08. heart rate: 125 beats per minute. Amniotic fluid is lower range of normal. BRYANT is 7.3, normal range 7.2 to 22.4. Biophysical profile score 8/8. S/D ratio 1.91, normal range 1.6 to 2.6. The four-chamber heart, stomach, kidneys, bladder, and spine appear grossly unremarkable. position: Vertex. Placenta: Anterior and grade 3 with no previa or abruption. Electronically Signed by Garrison Gonzalez MD 06/04/2020 10:02 P
== END 2020-05-31 16:51 | disposition home or self-care (01) ==
LOC: M LDO 14:04
PROVIDERS: ATTEND Obstetrics & Gynecology
DX: O36.8130 Decreased fetal movements, third trimester, not applicable or unspecified (principal); O26.853 Spotting complicating pregnancy, third trimester; Z3A.37 37 weeks gestation of pregnancy

== ENCOUNTER 2020-06-05 06:33 | Inpatient (IN) | payer OTHER ==
[~2020-06-05] VITALS: Ht 147.3 cm; Wt 54.9 kg
[2020-06-05] VITALS (7 sets, daily range): BP systolic 104–142; BP diastolic 63–81
[2020-06-05] MEDS ORDERED: OXYTOCIN 30 UNITS IN 0.9% NaCl 500ML IV BAG (J2590) As Ordered ONE ×2 (07:00→13:11)
[2020-06-05] MEDS ORDERED: AMPICILLIN SOD 2 GM in APPROPRIATE DILUENT 20 ML IV STA (07:29)
[2020-06-05] MEDS ORDERED: LACTATED RINGER'S 1000 ML IV STA (07:29)
[2020-06-05] MEDS ORDERED: OMEP10CASR PO (07:56)
[2020-06-05] MEDS ORDERED: WELLTAB38 PO (07:56)
[2020-06-05] MEDS ORDERED: WELLTAB40 PO (07:56)
[2020-06-05] MEDS ORDERED: DIPH50CA29 PO (07:56)
[2020-06-05] MEDS ORDERED: LR 1,000 ML IV SCH ×2 (08:00→13:15)
[2020-06-05] MEDS ORDERED: FENTANYL 2MCG/ML ROPIVACAINE 0.2% IN 0.9% NACL 100ML IVBAG As Ordered ONE (08:02)
[2020-06-05 08:05] LABS: HEMATOCRIT 35.2 % (36.0-47.0); HEMOGLOBIN 11.6 g/dl (12.0-15.5); MEAN CORPUSCULAR HEMOGLOBIN 31.4 pg (27.0-33.0); MEAN CORPUSCULAR VOLUME 95.4 fl (80.0-96.0); PLATELET COUNT, AUTOMATED 298 10^3/uL (150-450); RED BLOOD COUNT 3.69 10^6/uL (4.00-5.40); WHITE BLOOD COUNT 11.3 10^3/uL (4.0-10.0)
[2020-06-05] MEDS ORDERED: METH5TA PO (08:05)
[2020-06-05] MEDS ORDERED: EPIDURAL COMMENT XX SCH (08:45)
[2020-06-05] MEDS ORDERED: EPIDURAL/PCA KEYS XX PRN (08:45)
[2020-06-05] MEDS ORDERED: FENTANYL/ROPIVACAINE/NACL BAG 100 ML EPIDURAL SCH (08:45)
[2020-06-05] MEDS ORDERED: ePHEDrine SULFATE 25 MG/5 ML(5MG/ML) SYRINGE IV PRN (08:45)
[2020-06-05] MEDS ORDERED: diphenhydrAMINE 50MG/ML VIAL (J1200) IV PRN ×2 (08:45→12:40)
[2020-06-05] MEDS ORDERED: NALOXONE INJ 0.4MG/1ML VIAL (J2310 PER 1MG) IV PRN ×3 (08:45→12:40)
[2020-06-05] MEDS ORDERED: REFRIGERATOR IV KEYS XX PRN (08:45)
[2020-06-05] MEDS ORDERED: LACTATED RINGER'S 1000 ML IV PRN (08:45)
[2020-06-05] MEDS ORDERED: ONDANSETRON 4MG/2ML VIAL IV PRN ×3 (08:45→13:15)
[2020-06-05] MEDS ORDERED: OXYTOCIN DRIP 30 UNITS in IV 1 EA IV SCH ×2 (09:00→13:01)
[2020-06-05 09:58] LABS: AMPHETAMINES URINE REFLEX NEGATIVE (NEGATIVE); BARBITURATES URINE REFLEX NEGATIVE (NEGATIVE); BENZODIAZEPINES URINE REFLEX NEGATIVE (NEGATIVE); CANNABINOIDS URINE REFLEX NEGATIVE (NEGATIVE); COCAINE METABOLITE URINE REFLE NEGATIVE (NEGATIVE); OPIATES URINE REFLEX NEGATIVE (NEGATIVE); PHENCYCLIDINE URINE REFLEX NEGATIVE (NEGATIVE)
[2020-06-05 10:01] LABS: METHADONE URINE REFLEX PENDING CONFIRMATION (NEGATIVE)
[2020-06-05] MEDS ORDERED: AMPICILLIN SOD 1 GM in APPROPRIATE DILUENT 10 ML IV SCH (11:30)
[2020-06-05] MEDS ORDERED: BICITRA 30ML SOLN UDC As Ordered ONE (12:02)
[2020-06-05] MEDS ORDERED: ceFAZolin 1GM VIAL (J0690 PER 500MG) As Ordered ONE (12:02)
[2020-06-05] MEDS ORDERED: dexameTHASONE 4 MG/ML 1ML VIAL (J1100 PER 1MG) As Ordered ONE (12:37)
[2020-06-05] MEDS ORDERED: LIDOCAINE 2% W/EPINEPHRINE 20ML VIAL **PRES FREE As Ordered ONE (12:37)
[2020-06-05] MEDS ORDERED: METOCLOPRAMIDE INJ 10MG/2ML VIAL (J2765 PER 1) As Ordered ONE (12:37)
[2020-06-05] MEDS ORDERED: OXYTOCIN INJ 10 UNITS/ML VIAL (J2590) As Ordered ONE (12:37)
[2020-06-05] MEDS ORDERED: ONDANSETRON 4MG/2ML VIAL As Ordered ONE (12:37)
[2020-06-05] MEDS ORDERED: MORPHINE PRES-FREE INJ 10 MG/10 ML VIAL (J2274) As Ordered ONE (12:38)
[2020-06-05] MEDS ORDERED: fentaNYL 100 MCG/2 ML INJECTION (J3010) As Ordered ONE (12:38)
[2020-06-05] MEDS ORDERED: KETOROLAC 60MG 2ML VIAL As Ordered ONE (12:38)
[2020-06-05 12:39] LABS: CORD GAS ABE V -5.4; CORD GAS HCO3 V 24.7 MEQ/L; CORD GAS O2 SAT V 53.8 %; CORD GAS PCO2 V 65.9 mmHg; CORD GAS PH V 7.192 UNITS; CORD GAS PO2 V 23.2 mmHg; CORD GAS SBC V 18.9 MEQ/L; CORD GAS TCO2 V 26.7 MEQ/L
[2020-06-05] MEDS ORDERED: METOCLOPRAMIDE INJ 10MG/2ML VIAL (J2765 PER 1) IV PRN ×2 (12:40→13:15)
[2020-06-05] MEDS ORDERED: NALBUPHINE HCL 10 MG/ML AMP (J2300) IV PRN (12:40)
[2020-06-05 12:42] LABS: CORD GAS ABE A -5.7; CORD GAS HCO3 A 25.5 MEQ/L; CORD GAS O2 SAT A 40.9 %; CORD GAS PCO2 A 74.1 mmHg; CORD GAS PH A 7.154 UNITS; CORD GAS PO2 A 20.2 mmHg; CORD GAS SBC A 18.4 MEQ/L; CORD GAS TCO2 A 27.7 MEQ/L
[2020-06-05] MEDS ORDERED: fentaNYL 100 MCG/2 ML INJECTION (J3010) IV PRN (13:15)
[2020-06-05] MEDS ORDERED: ANUSOL HC CREAM 30GM TOP PRN (13:15)
[2020-06-05] MEDS ORDERED: BENZOCAINE 20% GEL 9GM TUBE (ANBESOL MAX STRENGTH) TOP PRN (13:15)
[2020-06-05] MEDS ORDERED: RHOGAM 300 MCG (1500 IU) INJ (J2790) IM SCH (13:15)
[2020-06-05] MEDS ORDERED: PERCOCET 5MG/325MG TAB PO PRN (13:15)
[2020-06-05] MEDS ORDERED: MOM 30ML SUSPENSION UDC PO PRN (13:15)
[2020-06-05] MEDS ORDERED: MEASLES,MUMPS,RUBELLA VACCINE INJ (MMR-II) (90707) SC SCH (13:15)
[2020-06-05] MEDS ORDERED: MEPERIDINE INJ 25 MG/ML VIAL (J2175) IV PRN (13:15)
[2020-06-05] MEDS ORDERED: ceFAZolin SOD 1 GM in D5W MINI-BAG PLUS 50 ML IV ONE (13:30)
[2020-06-05] MEDS: IBUPROFEN 800 MG TAB PO PRN (16:13)
[2020-06-05] MEDS: ACETAMINOPHEN TAB 650MG DOSE (2X325MG) PO PRN (20:14)
[2020-06-05] MEDS: DOCUSATE SODIUM 100 MG CAP PO SCH (20:14)
[2020-06-05] MEDS: buPROPion **XL** TABLET 150MG (WELLBUTRIN XL) PO SCH (20:55)
[2020-06-06 02:00] VITALS: BP 116/63
[2020-06-06] MEDS: IBUPROFEN 800 MG TAB PO PRN ×2 (02:34→14:35)
[2020-06-06 06:00] VITALS: BP 100/56
[2020-06-06 08:14] LABS: MEAN CORPUSCULAR HEMOGLOBIN 31.6 pg (27.0-33.0); MEAN CORPUSCULAR HGB CONC 32.1 g/dl (32.0-36.5); MEAN CORPUSCULAR VOLUME 98.2 fl (80.0-96.0); PLATELET COUNT, AUTOMATED 195 10^3/uL (150-450); RED BLOOD COUNT 2.85 10^6/uL (4.00-5.40); WHITE BLOOD COUNT 18.4 10^3/uL (4.0-10.0)
[2020-06-06] MEDS ORDERED: METHADONE 10 MG TAB (S0109) PO ONE (09:00)
[2020-06-06] MEDS: PRENATAL VITAMINS CHEWABLE TABLET PO SCH (09:02)
[2020-06-06] MEDS: DOCUSATE SODIUM 100 MG CAP PO SCH ×2 (09:02→21:14)
[2020-06-06 10:00] VITALS: BP 117/65
[2020-06-06] MEDS ORDERED: CALCIUM CARBONATE 500 MG CHEW U/D PO PRN (13:30)
[2020-06-06 14:00] VITALS: BP 137/72
[2020-06-06 18:00] VITALS: BP 120/67
[2020-06-06] MEDS: buPROPion **XL** TABLET 150MG (WELLBUTRIN XL) PO SCH (21:14)
[2020-06-06] MEDS: ACETAMINOPHEN TAB 650MG DOSE (2X325MG) PO PRN (21:21)
[2020-06-06 22:21] VITALS: BP 134/86
[2020-06-07] MEDS: IBUPROFEN 800 MG TAB PO PRN (01:56)
[2020-06-07 02:48] VITALS: BP 144/83
[2020-06-07 05:54] VITALS: BP 126/78
[2020-06-07] MEDS ORDERED: IBUP80TA PO (08:23)
[2020-06-07] MEDS: DOCUSATE SODIUM 100 MG CAP PO SCH (08:24)
[2020-06-07] MEDS: ACETAMINOPHEN TAB 650MG DOSE (2X325MG) PO PRN (08:24)
[2020-06-07] MEDS: PRENATAL VITAMINS CHEWABLE TABLET PO SCH (08:24)
[2020-06-07 10:00] VITALS: BP 143/85
--- NOTE | 2020-06-07 10:09 | HPE ---
DATE OF ADMISSION: 06/05/2020 Zakia is a 24-year-old female, 1, para 0, with an estimated date of confinement (EDC) of 06/06/2020, estimated gestational age (EGA) 39-2/7 weeks gestation, who presented to labor and good delivery with complaints of contractions every 3-4 minutes with gross rupture of membranes. Upon evaluation. she was found to be in a very active labor, 8-9 cm dilated with a fetus at -2 station. At this point, a decision was made for admission. Her records reviewed. The patient does have a history of drug abuse. She is currently in a methadone program. She has multiple psychiatric illnesses, on high dose of methadone, Wellbutrin, as well as omeprazole and other medications. Her past medical history is significant for drug addiction, sober for 1 year, bipolar disorder, anxiety, depression. SURGICAL HISTORY: Denies. SOCIAL HISTORY: The patient is a drug abuser, prior heroin, currently on methadone. Multiple psych illness, including bipolar disorder, anxiety. She is a smoker, smokes approximately 10 cigarettes per day. REVIEW OF SYSTEMS: Unremarkable. MEDICATIONS: - omeprazole 20 mg - bupropion ER 300 mg - methadone ALLERGIES: NO KNOWN DRUG ALLERGIES. PHYSICAL EXAMINATION: The patient report dentition. HEENT: Grossly within normal limits. Abdomen: Soft, nontender, nondistended. Extremities: No clubbing, cyanosis or edema. Vaginal exam as above. Tracing reviewed. Category 1 tracing. ASSESSMENT: 1. Intrauterine in active labor. 2. Group B streptococcus (GBS) negative. PLAN: Admit to labor and delivery. Routine labs sent as well as urine toxicology awaiting delivery.
[2020-06-08 01:07] LABS: GC Methadone 5215 ng/mL (Cutoff=100); Methadone Positive (.)
--- NOTE | 2020-06-13 12:47 | RO ---
DATE OF PROCEDURE: 06/05/2020 Zakia is a 24-year-old female, 1, para 0, who was admitted in active labor. She progressed to fully dilated, pushed for over 3 hours with an arrest of descent with what appeared to be a cephalopelvic disproportion. After extensive pushing and maternal exertion and two attempt of the vacuum a decision was made to proceed with delivery via section. PREOPERATIVE DIAGNOSES: 1. Term in active labor. 2. Arrest of descent. POSTOPERATIVE DIAGNOSES: 1. Term in active labor. 2. Arrest of descent. 3. Cephalopelvic disproportion. PROCEDURE: Primary low transverse section. ANESTHESIA: Epidural. SURGEON: Dr. Cardenas HAND TENNIS BALL COVERER: Yaritza Snider CNM COMPLICATIONS: None. ESTIMATED BLOOD LOSS: 500 mL. FINDINGS: Live male in occiput posterior position, 9 and 9, weight 7 pounds 1 ounce. DESCRIPTION OF PROCEDURE: After obtaining informed consent, the patient was taken to the operating room where anesthesia was found to be adequate. She was then draped and prepped in usual sterile fashion in the supine position. At this point, a Pfannenstiel incision was made. This was carried down to the fascia. Fascia was incised in midline fashion and carried through laterally. Superior aspect of the fascia was then grasped with two Jeff clamps, tented off and dissected off the rectus muscles sharply. The inferior aspect was dissected off in a similar fashion. Rectus muscles in midline fashion. Perineum identified. Perineal cavity entered bluntly. Superior and inferior dissection of the peritoneum was then done with good visualization of the bladder. At this point, a Mobius skin retractor was placed. A low transverse uterine incision was made. was delivered in atraumatic fashion. Nose and mouth bulb suctioned. Cord doubly clamped and cut, and was handed over to the waiting warmer. Cord blood and cord gas were sent. Placenta removed manually. Uterus cleared of all clot and debris. The uterine incision was then repaired in two separate layers of #0 Vicryl sutures. All superficial bleeders coagulated and the skin was reapproximated in subcuticular fashion using #3-0 Vicryl on a Otilio. Steri-Strips placed. Patient tolerated procedure well. She was then transferred to recovery room in stable condition.
== END 2020-06-07 12:10 | disposition home or self-care (01) | DRG 540 ==
LOC: M LDO 06:33 → M LDI 06:58 → M OBS 14:32
PROVIDERS: ADMIT Obstetrics & Gynecology; ATTEND Obstetrics & Gynecology
PROC: 10D00Z1 Extraction of Products of Conception, Low, Open Approach (ICD-10-PCS; principal; 2020-06-05 12:26)
DX: O32.4XX0 Maternal care for high head at term, not applicable or unspecified (principal); Z37.0 Single live birth; Z3A.39 39 weeks gestation of pregnancy; F17.210 Nicotine dependence, cigarettes, uncomplicated; O99.334 Smoking (tobacco) complicating childbirth

== ENCOUNTER → 2020-12-22 | Outpatient (CLI) | payer OTHER ==
[~2020-12-22] MED LIST changes: +DIPH50CA29 PO; +IBUP80TA PO; +OMEP10CASR PO; +WELLTAB38 PO
[2020-12-22 16:01] LABS: BASO % 0.4 % (0.0-1.0); EOS # 0.1 10^3/uL (0.0-0.5); EOS % 1.4 % (0.0-3.0); HEMATOCRIT 40.3 % (36.0-47.0); HEMOGLOBIN 13.2 g/dl (12.0-15.5); LYMPH % 43.2 % (24.0-44.0); MEAN CORPUSCULAR HGB CONC 32.8 g/dl (32.0-36.5); MEAN CORPUSCULAR VOLUME 91.6 fl (80.0-96.0); MONO # 0.7 10^3/uL (0.0-0.8); MONO % 9.3 % (0.0-5.0); NEUTROPHILS # 3.2 10^3/uL (1.5-8.5); NEUTROPHILS % 45.4 % (36.0-66.0); PLATELET COUNT, AUTOMATED 319 10^3/uL (150-450)
[2020-12-22 16:08] LABS: HCG, SERUM QUALITATIVE NEGATIVE (NEGATIVE)
[2020-12-22 16:45] LABS: ALBUMIN 3.9 GM/DL (3.2-5.2); ALT/SGPT 19 U/L (12-78); BILIRUBIN,TOTAL 0.6 MG/DL (0.2-1.0); BLOOD UREA NITROGEN 13 MG/DL (7-18); CALCIUM LEVEL 9.3 MG/DL (8.5-10.1); CARBON DIOXIDE LEVEL 30 MEQ/L (21-32); CHLORIDE LEVEL 102 MEQ/L (98-107); CREATININE FOR GFR 0.91 MG/DL (0.55-1.30); FREE T4 0.73 NG/DL (0.76-1.46); GLOMERULAR FILTRATION RATE > 60.0 (>60); GLUCOSE, FASTING 91 MG/DL (70-100); IRON (FE) 84 UG/DL (50-170); POTASSIUM SERUM 3.9 MEQ/L (3.5-5.1); SODIUM LEVEL 139 MEQ/L (136-145); TOTAL 25(OH) VITAMIN D 30.2 NG/ML (30.0-100.0); TOTAL IRON BINDING CAPACITY 419 UG/DL (250-450); TOTAL PROTEIN 7.6 GM/DL (6.4-8.2)
== END ==
LOC: M WUC 11:40
PROVIDERS: ATTEND Physician Assistant
DX: R53.83 Other fatigue (principal)

== ENCOUNTER 2021-01-20 11:56 | Emergency (ER) | payer OTHER ==
[2021-01-20 14:34] LABS: ALBUMIN 3.8 GM/DL (3.2-5.2); ALT/SGPT 22 U/L (12-78); BILIRUBIN,DIRECT 0.2 MG/DL (0.0-0.2); BILIRUBIN,TOTAL 0.5 MG/DL (0.2-1.0); BLOOD UREA NITROGEN 12 MG/DL (7-18); CARBON DIOXIDE LEVEL 28 MEQ/L (21-32); CHLORIDE LEVEL 102 MEQ/L (98-107); CK-MB VALUE MASS 1.5 NG/ML (<3.6); CPK CREATINE PHOSPHOKINASE 113 U/L (26-192); CREATININE FOR GFR 0.86 MG/DL (0.55-1.30); GLOMERULAR FILTRATION RATE > 60.0 (>60); GLUCOSE, FASTING 93 MG/DL (70-100); HCG, SERUM QUANTITATIVE < 1.0 MIU/ML; LIPASE 41 U/L (73-393); MB/CK RELATIVE INDEX 1.33 (< OR =4); POTASSIUM SERUM 3.8 MEQ/L (3.5-5.1); SODIUM LEVEL 137 MEQ/L (136-145); TOTAL PROTEIN 8.3 GM/DL (6.4-8.2); TROPONIN I < 0.02 NG/ML (< 0.10)
[2021-01-20 14:42] LABS: D-DIMER QUANT < 270.0 ng/ml (<500); INR 0.94; PARTIAL THROMBOPLASTIN TIME 28.3 SECONDS (24.2-38.5); PROTHROMBIN TIME 12.8 SECONDS (12.5-14.3)
[2021-01-20 14:43] LABS: BASO % 0.3 % (0.0-1.0); EOS # 0.1 10^3/uL (0.0-0.5); EOS % 0.7 % (0.0-3.0); HEMATOCRIT 39.8 % (36.0-47.0); LYMPH # 2.3 10^3/uL (1.5-5.0); LYMPH % 26.1 % (24.0-44.0); MEAN CORPUSCULAR HEMOGLOBIN 29.7 pg (27.0-33.0); MEAN CORPUSCULAR HGB CONC 32.7 g/dl (32.0-36.5); MEAN CORPUSCULAR VOLUME 91.1 fl (80.0-96.0); MONO # 0.7 10^3/uL (0.0-0.8); MONO % 7.4 % (2.0-8.0); NEUTROPHILS # 5.8 10^3/uL (1.5-8.5); NEUTROPHILS % 65.2 % (36.0-66.0); PLATELET COUNT, AUTOMATED 310 10^3/uL (150-450); RED BLOOD COUNT 4.37 10^6/uL (4.00-5.40); WHITE BLOOD COUNT 8.9 10^3/uL (4.0-10.0)
--- NOTE | 2021-01-20 15:26 | REP ---
INDICATION: Abdominal Pain. COMPARISON: Chest 05/03/2019. TECHNIQUE: Supine and erect views of the abdomen performed. PA view of the chest performed. FINDINGS: There is no evidence of free intraperitoneal air or bowel obstruction. No dilated bowel loops are seen. Mild fecal material scattered throughout the colon, moderate fecal material at the hepatic flexure. No large renal calculi are seen. There is spina bifida occulta of S1 which is a normal variant. The lungs are free of infiltrate. The heart mediastinum are within normal limits. IMPRESSION: Negative abdominal series with no free air or obstruction. Mild fecal material throughout the colon, moderate fecal material at the hepatic flexure. <Electronically signed by Garrison Gonzalez > 01/20/21 [id number]
[2021-01-20 15:37] LABS: APPEARANCE, URINE CLEAR (CLEAR); BACTERIA, URINE AUTO NEGATIVE (NEGATIVE); BILIRUBIN, URINE AUTO NEGATIVE (NEGATIVE); BLOOD, URINE BLOOD NEGATIVE (NEGATIVE); COLOR, URINE YELLOW (YELLOW); GLUCOSE, URINE (UA) AUTO NEGATIVE (NEGATIVE); KETONE, URINE AUTO NEGATIVE (NEGATIVE); LEUKOCYTE ESTERASE, URINE AUTO 1+ (NEGATIVE); MUCUS, URINE SMALL (NEGATIVE); NITRITE, URINE AUTO NEGATIVE (NEGATIVE); PROTEIN, URINE AUTO 1+ mg/dL (NEGATIVE); RBC, URINE AUTO 2 /HPF (0-3); SPECIFIC GRAVITY URINE AUTO 1.027 (1.002-1.035); SQUAMOUS EPITHELIAL CELL UR AU 2 /HPF (0-6); UROBILINOGEN, URINE AUTO 0.2 mg/dL (0.0-2.0); WBC, URINE AUTO 0 /HPF (0-3)
[2021-01-20 16:47] LABS: CK-MB VALUE MASS 1.4 NG/ML (<3.6); CPK CREATINE PHOSPHOKINASE 122 U/L (26-192); MB/CK RELATIVE INDEX 1.15 (< OR =4); TROPONIN I < 0.02 NG/ML (< 0.10)
--- NOTE | 2021-01-21 19:47 | ECGEPIP ---
[facility] - ED Test Date: 2021-01-20 Pat Name: TIERNEY QUEEN Department: Room: - Gender: Female Medical Cost Consultant: ALDO : 1995 Requested By: COLBY Darby PA-C Order Number: [id number] Reading MD: Maikol Turner Measurements Intervals [place] Rate: 75 P: 45 GA: 134 QRS: 38 QRSD: 74 T: 30 QT: 398 QTc: 444 Interpretive Statements Normal sinus rhythm NSTTW ABNORMALITY(S) SIMILAR TO 05/03/19 Electronically Signed on 01-21-2021 19:47:37 EST by Maikol Turner
== END 2021-01-20 17:07 | disposition home or self-care (01) ==
LOC: M ED 11:56
DX: R23.3 Spontaneous ecchymoses (principal); K59.00 Constipation, unspecified; F17.200 Nicotine dependence, unspecified, uncomplicated; Z79.899 Other long term (current) drug therapy

== ENCOUNTER 2021-01-22 09:54 | Emergency (ER) | payer OTHER ==
[~2021-01-22] VITALS: Ht 147.3 cm; Wt 61.0 kg
[2021-01-22] MEDS ORDERED: KETOROLAC 30 MG/ML 1ML VIAL IV ONE (11:30)
[2021-01-22] MEDS ORDERED: ONDANSETRON 4MG/2ML VIAL IV ONE (11:30)
[2021-01-22] MEDS ORDERED: NS 1,000 ML IV ONE (11:30)
[2021-01-22] MEDS ORDERED: ISOVUE-370 76% 100ML VIAL As Ordered ONE (12:46)
[2021-01-22 12:51] LABS: BASO # 0.1 10^3/uL (0.0-0.2); BASO % 0.7 % (0.0-1.0); EOS # 0.1 10^3/uL (0.0-0.5); EOS % 1.5 % (0.0-3.0); HEMATOCRIT 40.9 % (36.0-47.0); HEMOGLOBIN 13.3 g/dl (12.0-15.5); LYMPH # 2.6 10^3/uL (1.5-5.0); MEAN CORPUSCULAR HGB CONC 32.5 g/dl (32.0-36.5); MEAN CORPUSCULAR VOLUME 92.3 fl (80.0-96.0); MONO # 0.5 10^3/uL (0.0-0.8); MONO % 7.8 % (2.0-8.0); NEUTROPHILS # 3.6 10^3/uL (1.5-8.5); PLATELET COUNT, AUTOMATED 299 10^3/uL (150-450); RED BLOOD COUNT 4.43 10^6/uL (4.00-5.40); WHITE BLOOD COUNT 6.9 10^3/uL (4.0-10.0)
--- NOTE | 2021-01-22 13:15 | REP ---
INDICATION: upper abd pain. COMPARISON: None TECHNIQUE: Axial contrast-enhanced images from the lung bases to the pubic symphysis using 100 cc Isovue 370 intravenous contrast material. Coronal and sagittal reformations obtained. This CT examination was performed using the following dose reduction techniques: Automated exposure control, adjustment of mA and/or kv according to the patient's size, and the use of iterative reconstruction technique. FINDINGS: Liver, spleen, pancreas, gallbladder, bilateral adrenal glands and kidneys are normal. Mild mucosal thickening of the transverse colon may represent peristalsis or a mild acute infectious/inflammatory colitis. The remainder of the small and large bowel is normal. Normal terminal ileum and appendix identified in the right lower quadrant. Pelvis demonstrates collapsed bladder and age-appropriate uterus/adnexa. No ascites. No free air. No intraperitoneal or retroperitoneal adenopathy. Abdominal aorta and vasculature appear normal. Musculoskeletal structures are intact and without acute osseous abnormality. IMPRESSION: 1. Cannot exclude a very mild infectious/inflammatory colitis involving the transverse colon. 2. No further acute abdominopelvic pathology appreciated. <Electronically signed by Frank Sosa > 01/22/21 [id number]
[2021-01-22 13:16] LABS: ERYTHROCYTE SEDIMENTATION RATE 23 mm/hr (0-20)
[2021-01-22 13:17] LABS: MONO SCRN NEGATIVE (NEGATIVE)
[2021-01-22 13:19] LABS: ALBUMIN 3.9 GM/DL (3.2-5.2); ALT/SGPT 18 U/L (12-78); BILIRUBIN,DIRECT 0.2 MG/DL (0.0-0.2); BILIRUBIN,TOTAL 0.6 MG/DL (0.2-1.0); BLOOD UREA NITROGEN 10 MG/DL (7-18); C REACTIVE PROTEIN QUANTITATIV 0.52 MG/DL (0.00-0.30); CALCIUM LEVEL 9.1 MG/DL (8.5-10.1); CARBON DIOXIDE LEVEL 30 MEQ/L (21-32); CHLORIDE LEVEL 103 MEQ/L (98-107); CREATININE FOR GFR 0.85 MG/DL (0.55-1.30); GLOMERULAR FILTRATION RATE > 60.0 (>60); GLUCOSE, FASTING 80 MG/DL (70-100); POTASSIUM SERUM 4.7 MEQ/L (3.5-5.1); SODIUM LEVEL 137 MEQ/L (136-145)
--- NOTE | 2021-01-22 13:26 | REP ---
INDICATION: wheezes COMPARISON: None. TECHNIQUE: PA and lateral. FINDINGS: The mediastinum and cardiac silhouette are normal. The lung thrasher are clear and without acute consolidation, effusion, or pneumothorax. The skeletal structures are intact and normal. IMPRESSION: No acute cardiopulmonary process. <Electronically signed by Frank Sosa > 01/22/21 [id number]
[2021-01-22 14:01] LABS: INR 0.97; PROTHROMBIN TIME 13.1 SECONDS (12.5-14.3)
[2021-01-22 14:02] LABS: PARTIAL THROMBOPLASTIN TIME 29.5 SECONDS (24.2-38.5)
[2021-01-22 14:04] LABS: D-DIMER QUANT 412.19 ng/ml (<500)
[2021-01-22] MEDS ORDERED: ONDA4TAB6 PO (14:19)
[2021-01-22] MEDS ORDERED: AUGM875T28 PO (14:19)
[2021-01-22 14:39] VITALS: BP 110/81
== END 2021-01-22 14:41 | disposition home or self-care (01) ==
LOC: M ED 09:54
DX: J02.0 Streptococcal pharyngitis (principal); A38.9 Scarlet fever, uncomplicated; K52.9 Noninfective gastroenteritis and colitis, unspecified; F31.9 Bipolar disorder, unspecified; F41.9 Anxiety disorder, unspecified; F17.200 Nicotine dependence, unspecified, uncomplicated; F11.10 Opioid abuse, uncomplicated
CPT/HCPCS: 71046; 74177; 80047; 80048; 80076; 84702; 85025; 85379; 85610; 85652; 85730; 86140; 86308; 87880; 96361; 96374; 96375; 99284; J1885; J2405; Q9967

== ENCOUNTER → 2021-03-01 | Outpatient (REF) | payer OTHER ==
[~2021-03-01] MED LIST changes: +AUGM875T28 PO; +ONDA4TAB6 PO
== END ==
LOC: M LAB REF 16:00
PROVIDERS: ATTEND Physician Assistant
DX: J00 Acute nasopharyngitis [common cold] (principal)

== ENCOUNTER 2021-04-12 10:37 | Emergency (ER) | payer OTHER ==
[~2021-04-12] VITALS: Ht 147.3 cm; Wt 59.3 kg
[2021-04-12] MEDS ORDERED: BENZ200C70 (10:45)
[2021-04-12] MEDS ORDERED: ACETAMINOPHEN 325 MG TAB PO ONE (12:05)
[2021-04-12 12:46] LABS: BASO % 0.5 % (0.0-1.0); EOS % 0.2 % (0.0-3.0); HEMOGLOBIN 13.2 g/dl (12.0-15.5); LYMPH # 2.5 10^3/uL (1.5-5.0); LYMPH % 28.4 % (24.0-44.0); MEAN CORPUSCULAR HEMOGLOBIN 30.8 pg (27.0-33.0); MEAN CORPUSCULAR VOLUME 93.2 fl (80.0-96.0); MONO # 0.6 10^3/uL (0.0-0.8); MONO % 7.3 % (2.0-8.0); NEUTROPHILS # 5.5 10^3/uL (1.5-8.5); NEUTROPHILS % 63.4 % (36.0-66.0); PLATELET COUNT, AUTOMATED 296 10^3/uL (150-450); RED BLOOD COUNT 4.29 10^6/uL (4.00-5.40); WHITE BLOOD COUNT 8.7 10^3/uL (4.0-10.0)
[2021-04-12 13:11] LABS: HCG, SERUM QUALITATIVE NEGATIVE (NEGATIVE); MONO REFLEX EBV COMP NEGATIVE (NEGATIVE)
[2021-04-12 13:17] LABS: ALBUMIN 4.1 GM/DL (3.2-5.2); ALT/SGPT 16 U/L (12-78); BILIRUBIN,DIRECT 0.2 MG/DL (0.0-0.2); BILIRUBIN,TOTAL 0.9 MG/DL (0.2-1.0); BLOOD UREA NITROGEN 11 MG/DL (7-18); CALCIUM LEVEL 9.1 MG/DL (8.5-10.1); CARBON DIOXIDE LEVEL 30 MEQ/L (21-32); CHLORIDE LEVEL 103 MEQ/L (98-107); CREATININE FOR GFR 0.79 MG/DL (0.55-1.30); FREE T4 0.92 NG/DL (0.76-1.46); GLOMERULAR FILTRATION RATE > 60.0 (>60); GLUCOSE, FASTING 76 MG/DL (70-100); POTASSIUM SERUM 4.1 MEQ/L (3.5-5.1); SODIUM LEVEL 138 MEQ/L (136-145); THYROID STIMULATING HORMONE 0.594 uIU/ML (0.358-3.740)
[2021-04-12 13:32] VITALS: BP 130/78
[2021-04-13 16:08] LABS: EBV VIRAL CAPSID AG IgG >600.0 U/mL (0.0-17.9); EBV VIRAL CAPSID AG IgM <36.0 U/mL (0.0-35.9); Lyme Disease IgG/IgM Antibodie <0.91 ISR (0.00-0.90); Lyme Disease IgM Ab Quantitati <0.80 index (0.00-0.79)
== END 2021-04-12 13:33 | disposition home or self-care (01) ==
LOC: M ED 10:37
DX: R05 Cough (principal); R51.9 Headache, unspecified; R09.81 Nasal congestion; M79.10 Myalgia, unspecified site; R53.83 Other fatigue; F19.10 Other psychoactive substance abuse, uncomplicated; F41.9 Anxiety disorder, unspecified; F31.9 Bipolar disorder, unspecified

== ENCOUNTER → 2021-05-11 | Outpatient (CLI) | payer OTHER ==
[~2021-05-11] MED LIST changes: +BENZ200C70
--- NOTE | 2021-05-11 11:25 | ECGEPIP ---
[facility] Test Date: 2021-05-11 Pat Name: TIERNEY QUEEN Department: Room: - Gender: Female Film Or Videotape Editor: RANI : 1995 Requested By: Garrison Hdz Order Number: [id number] Reading MD: Mandy Menezes Measurements Intervals [place] Rate: 73 P: 40 [place]: 124 QRS: 28 QRSD: 74 T: 19 QT: 384 QTc: 423 Interpretive Statements Normal sinus rhythm Cannot rule out Inferior infarct , age undetermined STTABN INF AND V2 SIMILAR TO 01/20/21 Electronically Signed on 05-11-2021 11:24:51 EDT by Mandy Menezes
[2021-05-11 11:43] LABS: HEMATOCRIT 40.5 % (36.0-47.0); HEMOGLOBIN 13.2 g/dl (12.0-15.5); MEAN CORPUSCULAR HEMOGLOBIN 30.9 pg (27.0-33.0); MEAN CORPUSCULAR HGB CONC 32.6 g/dl (32.0-36.5); MEAN CORPUSCULAR VOLUME 94.8 fl (80.0-96.0); PLATELET COUNT, AUTOMATED 386 10^3/uL (150-450); RED BLOOD COUNT 4.27 10^6/uL (4.00-5.40); WHITE BLOOD COUNT 8.6 10^3/uL (4.0-10.0)
[2021-05-11 12:07] LABS: ALT/SGPT 22 U/L (12-78); BILIRUBIN,TOTAL 0.5 MG/DL (0.2-1.0); BLOOD UREA NITROGEN 17 MG/DL (7-18); CALCIUM LEVEL 9.5 MG/DL (8.5-10.1); CARBON DIOXIDE LEVEL 32 MEQ/L (21-32); CHLORIDE LEVEL 102 MEQ/L (98-107); CREATININE FOR GFR 0.72 MG/DL (0.55-1.30); GLOMERULAR FILTRATION RATE > 60.0 (>60); GLUCOSE, FASTING 81 MG/DL (70-100); POTASSIUM SERUM 4.5 MEQ/L (3.5-5.1); SODIUM LEVEL 136 MEQ/L (136-145); TOTAL PROTEIN 7.9 GM/DL (6.4-8.2)
[2021-05-11 12:10] LABS: HCG, SERUM QUALITATIVE NEGATIVE (NEGATIVE)
[2021-05-11 12:27] LABS: HEPATITIS B SURFACE ANTIGEN NEGATIVE (NEGATIVE)
[2021-05-11 12:56] LABS: HEPATITIS C VIRUS ABY INDEX < 0.0 INDEX (<0.8); HIV 1&2 SCREEN CENTAUR NEGATIVE (NEGATIVE)
[2021-05-11 13:17] LABS: CHLAMYDIA DNA AMPLIFICATION NEGATIVE (NEGATIVE); GC DNA AMPLIFICATION NEGATIVE (NEGATIVE)
== END ==
LOC: M LAB 10:29
PROVIDERS: ATTEND Family Medicine
DX: F11.20 Opioid dependence, uncomplicated (principal)

== ENCOUNTER → 2021-06-19 | Outpatient (REF) | payer OTHER | LOC: M WUC 20:09 | PROVIDERS: ATTEND Nurse Practitioner Family | DX: R35.0 Frequency of micturition (principal) ==

== ENCOUNTER → 2021-07-12 | Outpatient (CLI) | payer OTHER ==
[2021-07-12 12:13] LABS: BASO % 0.3 % (0.0-1.0); EOS % 0.1 % (0.0-3.0); HEMATOCRIT 39.8 % (36.0-47.0); LYMPH # 1.7 10^3/uL (1.5-5.0); LYMPH % 19.2 % (24.0-44.0); MEAN CORPUSCULAR HEMOGLOBIN 30.4 pg (27.0-33.0); MEAN CORPUSCULAR HGB CONC 32.7 g/dl (32.0-36.5); MEAN CORPUSCULAR VOLUME 93.2 fl (80.0-96.0); MONO # 0.5 10^3/uL (0.0-0.8); MONO % 5.7 % (2.0-8.0); NEUTROPHILS # 6.6 10^3/uL (1.5-8.5); NEUTROPHILS % 74.1 % (36.0-66.0); PLATELET COUNT, AUTOMATED 377 10^3/uL (150-450); RED BLOOD COUNT 4.27 10^6/uL (4.00-5.40)
[2021-07-12 12:37] LABS: ALBUMIN 4.4 GM/DL (3.2-5.2); ALT/SGPT 19 U/L (12-78); BILIRUBIN,TOTAL 0.4 MG/DL (0.2-1.0); BLOOD UREA NITROGEN 12 MG/DL (7-18); CALCIUM LEVEL 8.9 MG/DL (8.5-10.1); CARBON DIOXIDE LEVEL 25 MEQ/L (21-32); CHLORIDE LEVEL 107 MEQ/L (98-107); CREATININE FOR GFR 0.87 MG/DL (0.55-1.30); GLOMERULAR FILTRATION RATE > 60.0 (>60); GLUCOSE, FASTING 99 MG/DL (70-100); LIPASE 49 U/L (73-393); SODIUM LEVEL 138 MEQ/L (136-145); TOTAL PROTEIN 8.4 GM/DL (6.4-8.2)
== END ==
LOC: M WUC 09:54
PROVIDERS: ATTEND Physician Assistant
DX: R10.9 Unspecified abdominal pain (principal)

== ENCOUNTER → 2021-07-12 | Outpatient (REF) | payer OTHER | LOC: M LAB REF 11:33 | PROVIDERS: ATTEND Physician Assistant | DX: R10.9 Unspecified abdominal pain (principal) ==

== ENCOUNTER 2021-07-15 17:50 | Emergency (ER) | payer OTHER ==
[~2021-07-15] VITALS: Ht 147.3 cm; Wt 60.5 kg
[2021-07-15 17:51] VITALS: BP 141/79
[2021-07-15] MEDS ORDERED: KETOROLAC 30 MG/ML 1ML VIAL IV ONE (21:40)
[2021-07-15] MEDS ORDERED: NS 1,000 ML IV ONE (21:40)
[2021-07-15] MEDS ORDERED: PANTOPRAZOLE 40MG VIAL (C9113 PER 1) IV ONE (21:40)
[2021-07-15] MEDS ORDERED: ONDANSETRON 4MG/2ML VIAL IV ONE (21:45)
[2021-07-15 22:00] LABS: HEMATOCRIT 40.3 % (36.0-47.0); HEMOGLOBIN 13.6 g/dl (12.0-15.5); MEAN CORPUSCULAR HEMOGLOBIN 30.4 pg (27.0-33.0); MEAN CORPUSCULAR HGB CONC 33.7 g/dl (32.0-36.5); PLATELET COUNT, AUTOMATED 350 10^3/uL (150-450); RED BLOOD COUNT 4.48 10^6/uL (4.00-5.40); WHITE BLOOD COUNT 9.5 10^3/uL (4.0-10.0)
[2021-07-15 22:24] LABS: ALBUMIN 4.1 GM/DL (3.2-5.2); BILIRUBIN,DIRECT 0.2 MG/DL (0.0-0.2); BILIRUBIN,TOTAL 0.6 MG/DL (0.2-1.0); TOTAL PROTEIN 8.3 GM/DL (6.4-8.2)
[2021-07-15 22:32] LABS: ATYPICAL LYMPH 5 % (0-5); BASOPHILS 1 % (0-1); LYMPHOCYTES 43 % (16-44); MONOCYTES 4 % (0-5); NEUTROPHILS 47 % (28-66)
[2021-07-15 22:34] LABS: PLATELET ESTIMATE NORMAL (NORMAL)
[2021-07-15] MEDS ORDERED: ISOVUE-370 76% 100ML VIAL As Ordered ONE (22:38)
--- NOTE | 2021-07-15 23:06 | REPVR ---
PROCEDURE INFORMATION: Exam: CT Abdomen And Pelvis With Contrast Exam date and time: 07/15/2021 10:40 PM Age: 25 years old Clinical indication: Other: Rlq and epigastric abd pain, nv c all po TECHNIQUE: Imaging protocol: Computed tomography of the abdomen and pelvis with contrast. Radiation optimization: All CT scans at this facility use at least one of these dose optimization techniques: automated exposure control; mA and/or kV adjustment per patient size (includes targeted exams where dose is matched to clinical indication); or iterative reconstruction. Contrast material: ISOVUE 370; Contrast volume: 100 ml; Contrast route: INTRAVENOUS (IV); COMPARISON: CT ABD/PEL W/IV CONTRAST ONLY 01/22/2021 1:03 PM FINDINGS: Mediastinal space: Mild hiatal hernia. Liver: Normal. No mass. Gallbladder and bile ducts: Normal. No calcified stones. No ductal dilation. Pancreas: Normal. No ductal dilation. Spleen: Small splenic cyst measuring 5 mm. Adrenal glands: Normal. No mass. Kidneys and ureters: Small nonobstructing left renal calculus in the mid kidney. Stomach and bowel: Minimal colonic wall thickening beginning in the distal descending colon extends to the rectum. Appendix: A normal appendix is seen measuring up to 5-6 mm. Intraperitoneal space: Unremarkable. No free air. No significant fluid collection. Vasculature: Unremarkable. No abdominal aortic aneurysm. Lymph nodes: Unremarkable. No enlarged lymph nodes. Urinary bladder: Unremarkable as visualized. Reproductive: Unremarkable as visualized. Bones/joints: Unremarkable. No acute fracture. Soft tissues: Unremarkable. IMPRESSION: 1. Minimal nonspecific distal colitis extending from the distal descending colon to the rectum which is new or increased since 01/22/2021. 2. Mild hiatal hernia. 3. Small nonobstructing left renal calculus which is unchanged from 01/22/2021. 4. Otherwise negative CT abdomen/pelvis. Electronically signed by: Danial Aparicio On 07/15/2021 23:05:56 PM
[2021-07-15] MEDS ORDERED: PROMETHAZINE INJ 25 MG/ML VIAL (J2550) IV ONE (23:20)
[2021-07-16] MEDS ORDERED: ONDA4TAB6 PO (00:06)
== END 2021-07-16 00:30 | disposition home or self-care (01) ==
LOC: M ED 17:50
DX: K52.9 Noninfective gastroenteritis and colitis, unspecified (principal); R11.2 Nausea with vomiting, unspecified; N20.0 Calculus of kidney; K44.0 Diaphragmatic hernia with obstruction, without gangrene; G47.33 Obstructive sleep apnea (adult) (pediatric); F31.9 Bipolar disorder, unspecified; Z87.440 Personal history of urinary (tract) infections; F17.200 Nicotine dependence, unspecified, uncomplicated
CPT/HCPCS: 74177; 80047; 80076; 81001; 83690; 84702; 85025; 87086; 96361; 96374; 96375; 99283; C9113; J1885; J2405; Q9967

== ENCOUNTER → 2021-08-01 | Outpatient (CLI) | payer OTHER ==
--- NOTE | 2021-08-02 14:29 | SLEEPCENT ---
DATE: 08/01/2021 ORDERED BY: Valdo Erazo Nocturnal polysomnography was performed for evaluation of sleep physiology in this patient with a history of snoring and excessive somnolence. There was 7 hours and 31 minutes of data reviewed. There was 401.5 minutes of sleep identified. Sleep latency was prolonged at 42.5 minutes. REM latency was prolonged at 166 minutes. Sleep architecture showed poor progression. There were two REM cycles noted. Overall sleep efficiency was 89.7%. The electrocardiogram showed a sinus rhythm with an average heart rate of 85 beats per minute. Rate ranged 70-110. EEG showed normal waveforms for wake and sleep stages. There were no focal events. Seventy-six respiratory events were identified of 10 seconds in duration or greater for an apnea-hypopnea index of 11.4. The events were more frequently mixed and central, and 66 of the 76 events were either central apneas or mixed apneas. Events were not exclusive to sleep stage nor body position. Arousals from respiratory events occurred 2.5 times per hour, and oxygen desaturations were seen below 90%. There was some minor activity noted on the limb leads. Two trains of 30 events but a limb movement arousal index of only 0.9. 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 Apnea-hypopnea index 11.4. RECOMMENDATION: The patient should be encouraged to return to the sleep disorder center for pressure therapy. Given the frequency of central events, a bilevel device and backup rate may be needed. In the interim, alcohol and sedative avoidance should be practiced and caution exercised during the operation of motor vehicles.
== END ==
LOC: M SLEEP 20:00
PROVIDERS: ATTEND Physician Assistant
DX: R40.0 Somnolence (principal)

== ENCOUNTER → 2021-09-06 | Outpatient (CLI) | payer OTHER ==
--- NOTE | 2021-09-12 10:39 | SLEEPCENT ---
DATE: 09/06/2021 ORDERED BY: RAMONITA Weeks Nocturnal polysomnography was performed for the titration of pressure therapy in this patient with complex sleep apnea syndrome, apnea hypopnea index 11.4. For testing a ResMed F20 full face mask of small size was used, 4 cm of water pressure were applied to the circuit, and the lights were extinguished. Eight hours and 8 minutes of data were reviewed. There were 470 minutes of sleep identified. Sleep latency was short at 2 minutes. REM sleep latency was delayed at 229 minutes. Sleep architecture improved with optimal pressure therapy. There were two REM cycles. Overall sleep efficiency was 98.3%. The electrocardiogram showed a sinus rhythm with an average heart rate of 78 beats per minute. EEG showed normal waveforms for wake and sleep. Persistence of respiratory events prompted an increase in CPAP pressure despite optimal mask fit and minimal air leak. The patient required a change to a bilevel device. Multiple pressures were attempted. I retrospect of review, optimal sleep was seen on a bilevel pressure therapy, inspiratory 13/expiratory of 8 with which the patient slept through REM without significant respiratory event or oxygen desaturation. IMPRESSIONS: Obstructive sleep apnea syndrome (G47.33). RECOMMENDATION: Nightly use of bilevel pressure therapy inspiratory 13/expiratory of 8.
== END ==
LOC: M SLEEP 20:00
PROVIDERS: ATTEND Physician Assistant
DX: G47.33 Obstructive sleep apnea (adult) (pediatric) (principal)

== ENCOUNTER → 2021-09-17 | Outpatient (REF) | payer OTHER | LOC: M WUC 21:19 | PROVIDERS: ATTEND Physician Assistant | DX: R10.30 Lower abdominal pain, unspecified (principal) ==

== ENCOUNTER → 2021-09-18 | Outpatient (CLI) | payer OTHER ==
[2021-09-18 16:21] LABS: BASO % 0.5 % (0.0-1.0); EOS % 0.4 % (0.0-3.0); HEMATOCRIT 40.2 % (36.0-47.0); HEMOGLOBIN 13.1 g/dl (12.0-15.5); LYMPH # 2.8 10^3/uL (1.5-5.0); LYMPH % 36.5 % (24.0-44.0); MEAN CORPUSCULAR HEMOGLOBIN 29.8 pg (27.0-33.0); MEAN CORPUSCULAR HGB CONC 32.6 g/dl (32.0-36.5); MEAN CORPUSCULAR VOLUME 91.6 fl (80.0-96.0); MONO # 0.6 10^3/uL (0.0-0.8); MONO % 7.3 % (2.0-8.0); NEUTROPHILS # 4.2 10^3/uL (1.5-8.5); NEUTROPHILS % 55.2 % (36.0-66.0); PLATELET COUNT, AUTOMATED 364 10^3/uL (150-450); RED BLOOD COUNT 4.39 10^6/uL (4.00-5.40); WHITE BLOOD COUNT 7.6 10^3/uL (4.0-10.0)
[2021-09-18 17:04] LABS: ERYTHROCYTE SEDIMENTATION RATE 20 mm/hr (0-20)
[2021-09-18 17:05] LABS: ALBUMIN 4.1 GM/DL (3.2-5.2); ALT/SGPT 19 U/L (12-78); BILIRUBIN,TOTAL 0.7 MG/DL (0.2-1.0); BLOOD UREA NITROGEN 13 MG/DL (7-18); C REACTIVE PROTEIN QUANTITATIV 0.41 MG/DL (0.00-0.30); CALCIUM LEVEL 9.4 MG/DL (8.5-10.1); CARBON DIOXIDE LEVEL 29 MEQ/L (21-32); CHLORIDE LEVEL 106 MEQ/L (98-107); CREATININE FOR GFR 1.05 MG/DL (0.55-1.30); GLOMERULAR FILTRATION RATE > 60.0 (>60); GLUCOSE, FASTING 100 MG/DL (70-100); LIPASE 46 U/L (73-393); POTASSIUM SERUM 4.2 MEQ/L (3.5-5.1); SODIUM LEVEL 137 MEQ/L (136-145); TOTAL PROTEIN 8.3 GM/DL (6.4-8.2)
== END ==
LOC: M WUC 13:04
PROVIDERS: ATTEND Physician Assistant
DX: R11.2 Nausea with vomiting, unspecified (principal); R19.7 Diarrhea, unspecified; R10.30 Lower abdominal pain, unspecified

== ENCOUNTER 2021-09-23 08:48 | Emergency (ER) | payer OTHER ==
[~2021-09-23] VITALS: Ht 144.8 cm; Wt 63.6 kg
[2021-09-23 08:48] VITALS: BP 111/67
--- OUTSIDE RECORDS SUMMARY | 2021-09-23 08:54 | CCD | Continuity of Care Document ---
Author Author Zakia VIVAS DC Organization Unknown Address [address] [place] [address] [place] [address] Phone [phone] Care Team Providers Care Switch Operators Supervisor Name Role Phone Gianni Solorzano MD AUT [phone] Problems Description No Information Available Social History Type Date Description Comments Sex Unknown ETOH Use Denies alcohol use Tobacco Use Start: Unknown Light tobacco smoker (10 or fewe r cigarettes/day) Recreational Drug Use Former Drug User prescript ion pain meds, as of 03/01/21 X2 years clean Tobacco Use Start: Unknown Patient is a current smoker, smo kes every day Tobacco Use Start: Unknown The Patient Has Never Vaped Smoking Status Reviewed: 09/17/21 The Patient Has Never Vaped Allergies and adverse reactions Description No Known Drug Allergies Medications Active Medications SIG Qnty Indications Ordering Provide r Date Promethazine HCL 12.5mg Tablets 1 tab by mouth q4-6 hours as needed for nausea and vomiting 14tabs R11.2 Johnson Bravo JR., M.D. 09/17/2021 Methadone HCL Unknown Zyprexa Unknown Wellbutrin SR Unknown Topamax 25mg Tablets Unknown History Medications Amoxicillin 875mg Tablets take one tablet every 12 hrs.x 10 days. 20tabs J01.10 Johnson Bravo JR., M.D. 08/11/2021 - 08/17/2020 Ondansetron 4mg Tablets Dispers 1 tab by mouth dissolved on tongue q8 hours as needed nausea 10tabs A08.4 Johnson Bravo JR., M.D. 07/12/2021 - 07/21/2021 Loperamide HCL 2mg Tablets 2 tablets by mouth x1, then one tablet by mouth after each loose stool. 20tabs A 08.4 Johnson Bravo JR., M.D. 07/12/2021 - 07/18/2021 Miconazole 7 100mg Suppository 1 applicatorful 2% by way of vagina every night at bedtime x7 days 7units N76.0 Johnson Bravo JR., M.D. 06/19/2021 - 06/26/2021 Clotrimazole Anti-Fungal 1% Cream apply to affected areas twice a day as directed for up to 3 weeks 56gm B35 .2 Johnson Bravo JR., M.D. 06/19/2021 - 06/25/2021 Immunizations Description No Information Available Vital Signs Date Vital Result Comment 09/17/2021 5:03pm BP Systolic 111 mmHg BP Diastolic 74 mmHg Heart Rate 99 /min Respiratory Rate 16 /min O2 % BldC Oximetry 96 % Body Temperature 98.3 F Weight 138.00 lb Height 68 inches 5'8" BMI (Body Mass Index) 21.0 kg/m2 Pain Level 8 08/11/2021 1:05pm BP Systolic 106 mmHg BP Diastolic 70 mmHg Heart Rate 101 /min Respiratory Rate 14 /min O2 % BldC Oximetry 95 % Body Temperature 97.3 F Weight 138.00 lb Height 68 inches 5'8" BMI (Body Mass Index) 21.0 kg/m2 Pain Level 6 Results Test Acquired Date Facility Test Result H/L Range Note CBC With Differential 09/18/[address] [address] [phone] White Blood Count 7.6 10 Normal 4.0-10.0 Red Blood Count 4.39 10 Normal 4.00-5.40 Hemoglobin 13.1 g/dL Normal 12.0-15.5 Hematocrit 40.2 % Normal 36.0-47.0 Mean Corpuscular Volume 91.6 fl Normal 80.0-96.0 Mean Corpuscular Hemoglobin 29.8 pg Normal 27.0-33.0 Mean Corpuscular HGB Conc 32.6 g/dL Normal 32.0-36.5 Red Cell Distribution Width 13.0 % Normal 11.5-14.5 Platelet Count, Automated 364 10 Normal 150-450 Neutrophils % 55.2 % Normal 36.0-66.0 Lymph % 36.5 % Normal 24.0-44.0 [place] % 7.3 % Normal 2.0-8.0 Eos % 0.4 % Normal 0.0-3.0 Baso % 0.5 % Normal 0.0-1.0 Immature Granulocyte % 0.1 % Normal 0-3.0 Nucleated Red Blood Cell % 0.0 % Normal 0-0 Neutrophils # 4.2 10 Normal 1.5-8.5 Lymph # 2.8 10 Normal 1.5-5.0 [place] # 0.6 10 Normal 0.0-0.8 Eos # 0.0 10 Normal 0.0-0.5 Baso # 0.0 10 Normal 0.0-0.2 Comprehensive Metabolic Profil 09/18/[address] [address] [phone] Glucose, Fasting 100 mg/dL Normal 70-100 Blood Urea Nitrogen 13 mg/dL Normal 7-18 Creatinine For GFR 1.05 mg/dL Normal 0.55-1.30 Glomerular Filtration Rate > 60.0 Normal >60 1 Sodium Level 137 mEq/L Normal 136-145 Potassium Serum 4.2 mEq/L Normal 3.5-5.1 Chloride Level 106 mEq/L Normal 98-107 Carbon Dioxide Level 29 mEq/L Normal 21-32 Anion Gap 2 mEq/L Low 8-16 Calcium Level 9.4 mg/dL Normal 8.5-10.1 Ast/Sgot 13 U/L Normal 7-37 Alt/SGPT 19 U/L Normal 12-78 Alkaline Phosphatase 88 U/L Normal 45-117 Bilirubin,Total 0.7 mg/dL Normal 0.2-1.0 Total Protein 8.3 GM/DL High 6.4-8.2 Albumin 4.1 GM/DL Normal 3.2-5.2 Albumin/Globulin Ratio 1.0 Low 1.2-2.2 Laboratory test finding 09/18/[address] [address] [phone] Erythrocyte Sedimentation Rate 20 mm/hr Normal 0 -20 Lipase 46 U/L Low 73-393 C Reactive Protein Quantitativ 0.41 mg/dL High 0.00-0.30 Gastrointestinal (GI) Panel 09/18/2021 [id number] [place] [address] [phone] Gastrointestinal (GI) Panel This [facility] <SEE NOTE > 2 Laboratory test finding 09/17/[address] [address] [phone] Urine Culture FULL REPORT IN L <SEE NOTE> Normal 3 CBC With Differential 07/12/[address] [address] [phone] White Blood Count 9.0 10 Normal 4.0-10.0 Red Blood Count 4.27 10 Normal 4.00-5.40 Hemoglobin 13.0 g/dL Normal 12.0-15.5 Hematocrit 39.8 % Normal 36.0-47.0 Mean Corpuscular Volume 93.2 fl Normal 80.0-96.0 Mean Corpuscular Hemoglobin 30.4 pg Normal 27.0-33.0 Mean Corpuscular HGB Conc 32.7 g/dL Normal 32.0-36.5 Red Cell Distribution Width 12.2 % Normal 11.5-14.5 Platelet Count, Automated 377 10 Normal 150-450 Neutrophils % 74.1 % High 36.0-66.0 Lymph % 19.2 % Low 24.0-44.0 [place] % 5.7 % Normal 2.0-8.0 Eos % 0.1 % Normal 0.0-3.0 Baso % 0.3 % Normal 0.0-1.0 Immature Granulocyte % 0.6 % Normal 0-3.0 Nucleated Red Blood Cell % 0.0 % Normal 0-0 Neutrophils # 6.6 10 Normal 1.5-8.5 Lymph # 1.7 10 Normal 1.5-5.0 [place] # 0.5 10 Normal 0.0-0.8 Eos # 0.0 10 Normal 0.0-0.5 Baso # 0.0 10 Normal 0.0-0.2 Comprehensive Metabolic Profil 07/12/[address] [address] [phone] Glucose, Fasting 99 mg/dL Normal 70-100 Blood Urea Nitrogen 12 mg/dL Normal 7-18 Creatinine For GFR 0.87 mg/dL Normal 0.55-1.30 Glomerular Filtration Rate > 60.0 Normal >60 4 Sodium Level 138 mEq/L Normal 136-145 Potassium Serum 4.0 mEq/L Normal 3.5-5.1 Chloride Level 107 mEq/L Normal 98-107 Carbon Dioxide Level 25 mEq/L Normal 21-32 Anion Gap 6 mEq/L Low 8-16 Calcium Level 8.9 mg/dL Normal 8.5-10.1 Ast/Sgot 16 U/L Normal 7-37 Alt/SGPT 19 U/L Normal 12-78 Alkaline Phosphatase 86 U/L Normal 45-117 Bilirubin,Total 0.4 mg/dL Normal 0.2-1.0 Total Protein 8.4 GM/DL High 6.4-8.2 Albumin 4.4 GM/DL Normal 3.2-5.2 Albumin/Globulin Ratio 1.1 Low 1.2-2.2 Laboratory test finding 07/12/[address] [id number] [phone] Lipase 49 U/L Low 73-393 Laboratory test finding 07/12/[address] [id number] [phone] Urine Culture FULL REPORT IN L <SEE NOTE> Normal 5, 6 Laboratory test finding 06/19/[address] [id number] [phone] Urine Culture FULL REPORT IN L <SEE NOTE> Normal 7 1 Units are mL/min/1.73 m2 Chronic Kidney Disease Staging per NKF: Stage I & II GFR >=60 Normal to Mildly Decreased Stage III GFR 30-59 Moderately Decreased Stage IV GFR 15-29 Severely Decreased Stage V GFR <15 Very Little GFR Left ESRD GFR <15 on [facility] 2 This Gastrointestinal PCR Pa soila detects the following bacteria, parasites and viruses: Campylobacter (jejuni, coli and upsaliensis), Clostridium difficile (toxin A/B), Plesiomonas shigelloides, Salmonella, Yersinia enterocolitica, Vibrio (parahaemolyticus, vulnificus and cholerae), Vibrio clolerae, Enteroaggregative E. coli (EAEC), Enteropathogenis E. coli (EPEC), Enterotoxigenic E. coli (ETEC) it/st, Shiga-like producing E. coli (STEC) stx1/stc2, E.coli O157, Shigella/Enteroinvasive E. coli (EIEC), Cryptosporidium, Cyclospora cayetanensis, Entamoeba histolytica, Giardia lamblia, Adenovirus F 40/41, Astrovirus, Norovirus GI/GII, Rotavirus A and Sapovirus (I, II, IV, V). One negative specimen does not rule out the possibility of a parasitic infection. NEGATIVE by MULTIPLEXED NUCLEIC ACID PCR 3 FULL REPORT IN LAB NOTES ([facility]). SPECIMEN APPEARS CONTAMINATED 4 Units are mL/min/1.73 m2 Chronic Kidney Disease Staging per NKF: Stage I & II GFR >=60 Normal to Mildly Decreased Stage III GFR 30-59 Moderately Decreased Stage IV GFR 15-29 Severely Decreased Stage V GFR <15 Very Little GFR Left ESRD GFR <15 on [facility] 5 Rx Loperimide/Ondansetron 6 FULL REPORT IN LAB NOTES ([facility]). SPECIMEN APPEARS CONTAMINATED 7 FULL REPORT IN LAB NOTES ([facility]). NO GROWTH CLINICAL SIGNIFICANCE 2 OR MORE ORGANISMS Procedures Date Code Description Status 09/17/2021 40206 Office/Outpatient Established Mo d MDM 30-39 Min Completed 08/11/2021 22103 Office/Outpatient Established Lo w MDM 20-29 Min Completed 07/12/2021 78510 Office/Outpatient Established Lo w MDM 20-29 Min Completed 07/12/2021 63182 Office/Outpatient New Low MDM 30 -44 Minutes Completed 06/19/2021 31681 Office/Outpatient Established Lo w MDM 20-29 Min Completed Medical Devices Description No Information Available Encounters Type Date Location Provider Dx Diagnosis Office Visit 09/17/2021 2:35p Main Office KO Krisnhan R11.2 Nausea with vomiting, unspecified R19.7 Diarrhea, unspecified R10.30 Lower abdominal pain, unspec ified Office Visit 08/11/2021 12:25p Main Office KO Gay J01 .10 Acute frontal sinusitis, unspecified Z72.0 Tobacco use Office Visit 07/12/2021 9:10a Main Office Izaiah Huynh, P.A. R1 0.9 Unspecified abdominal pain A08.4 Viral intestinal infection, unspecified Z20.828 Contact w and exposure to ot h viral communicable diseases Office Visit 06/19/2021 3:30p Main Office Norah Overton NP R35. 0 Frequency of micturition N76.0 Acute vaginitis B35.2 Tinea manuum Assessments Date Code Description Provider 09/17/2021 R11.2 Nausea with vomiting, unspecifie d Jayde KChyna Vivas, PA 09/17/2021 R19.7 Diarrhea, unspecified Jayde K. Ring, PA 09/17/2021 R10.30 Lower abdominal pain, unspecifie d Jayde Christiano Vivas, PA 08/11/2021 J01.10 Acute frontal sinusitis, unspeci fied Jamaal Brady, KO 08/11/2021 Z72.0 Tobacco use Jamaal cervantes, KO 07/12/2021 R10.9 Unspecified abdominal pain Jam Huynh, P.A. 07/12/2021 A08.4 Viral intestinal infection, unsp ecified Izaiah Huynh, P.A. 07/12/2021 Z20.828 Contact with and (reese spected) exposure to other viral communicable diseases Izaiah Huynh, P.A. 06/19/2021 R35.0 Frequency of micturition Norah Overton NP 06/19/2021 N76.0 Acute vaginitis Norah calderon NP 06/19/2021 B35.2 Tinea manuum Norah calderon NP Plan of Treatment No Information Available Functional Status Description No Information Available Mental Status Description No Information Available Referrals Description No Information Available
--- OUTSIDE RECORDS SUMMARY | 2021-09-23 08:54 | CCD | Continuity of Care Document ---
Author Author Zakia VIVAS [place] Organization Unknown Address [address] [place] [address] [place] [address] Phone [phone] Care Team Providers Care Customer Service Agent Name Role Phone Gianni Solorzano MD AUT [phone] Problems Description No Information Available Social History [...] SIG Qnty Indications Ordering Provide r Date Methadone HCL Unknown Zyprexa Unknown Wellbutrin SR [...] Result H/L Range Note CBC With Differential 07/12/[address] [id number] [phone] White Blood Count 9.0 10 Normal 4.0-10.0 [...] 36.0-66.0 Lymph % 19.2 % Low 24.0-44.0 Gray % 5.7 % Normal 2.0-8.0 Eos % 0.1 % Normal 0.0-3.0 Baso % 0.3 % Normal 0.0-1.0 Immature Granulocyte % 0.6 % Normal 0-3.0 Nucleated Red Blood Cell % 0.0 % Normal 0-0 Neutrophils # 6.6 10 Normal 1.5-8.5 Lymph # 1.7 10 Normal 1.5-5.0 Gray # 0.5 10 Normal 0.0-0.8 Eos # 0.0 10 Normal 0.0-0.5 Baso # 0.0 10 Normal 0.0-0.2 Comprehensive Metabolic Profil 07/12/[address] [address] [phone] Glucose, Fasting 99 mg/dL Normal 70-100 Blood Urea Nitrogen 12 mg/dL Normal 7-18 Creatinine For GFR 0.87 mg/dL Normal 0.55-1.30 Glomerular Filtration Rate > 60.0 Normal >60 1 Sodium Level 138 mEq/L Normal 136-145 Potassium [...] 1.1 Low 1.2-2.2 Laboratory test finding 07/12/[address] [address] [phone] Lipase 49 U/L Low 73-393 Laboratory test finding 07/12/[address] [address] [phone] Urine Culture FULL REPORT IN L <SEE NOTE> Normal 2, 3 Laboratory test finding 06/19/[address] [address] [phone] Urine Culture FULL REPORT IN L <SEE NOTE> Normal 4 1 Units are mL/min/1.73 m2 Chronic Kidney Disease Staging per NKF: Stage I & II GFR >=60 Normal to Mildly Decreased Stage III GFR 30-59 Moderately Decreased Stage IV GFR 15-29 Severely Decreased Stage V GFR <15 Very Little GFR Left ESRD GFR <15 on INDUSTRIAL STAFF NURSE 2 Rx Loperimide/Ondansetron 3 FULL REPORT IN LAB NOTES ([facility]). SPECIMEN APPEARS CONTAMINATED 4 FULL REPORT IN LAB NOTES ([facility]). NO GROWTH CLINICAL SIGNIFICANCE 2 OR MORE ORGANISMS Procedures Date Code Description Status 09/17/2021 29055 Office/Outpatient Established Mo d MDM 30-39 Min Completed 08/11/2021 71555 Office/Outpatient Established Lo w MDM 20-29 Min Completed 07/12/2021 31061 Office/Outpatient Established Lo w MDM 20-29 Min Completed 07/12/2021 45206 Office/Outpatient New Low MDM 30 -44 Minutes Completed 06/19/2021 04935 Office/Outpatient Established Lo w MDM 20-29 Min Completed Medical Devices Description No Information Available Encounters Type Date Location Provider Dx Diagnosis Office Visit 09/17/2021 2:35p Main Office KO Krishnan R11.2 Nausea with vomiting, unspecified R19.7 Diarrhea, unspecified R10.30 Lower abdominal pain, unspec ified Office Visit 08/11/2021 12:25p Main Office KO Gay J01 .10 Acute frontal sinusitis, unspecified Z72.0 Tobacco use Office Visit 07/12/2021 9:10a Main Office Cas Lee R1 0.9 Unspecified abdominal pain A08.4 Viral intestinal infection, unspecified Z20.828 Contact w and exposure to ot h viral communicable diseases Office Visit 06/19/2021 3:30p Main Office Norah Overton NP R35. 0 Frequency of micturition N76.0 Acute vaginitis B35.2 Tinea manuum Assessments Date Code Description Provider 09/17/2021 R11.2 Nausea with vomiting, unspecifie d KO Krishnan 09/17/2021 R19.7 Diarrhea, unspecified KO Krishnan 09/17/2021 R10.30 Lower abdominal pain, unspecifie d KO Krishnan 08/11/2021 J01.10 Acute frontal sinusitis, unspeci fied KO Gay 08/11/2021 Z72.0 Tobacco use KO Ruiz 07/12/2021 R10.9 Unspecified abdominal pain Jam Huynh, P.A. 07/12/2021 A08.4 Viral intestinal infection, unsp ecified Izaiah Huynh, P.A. 07/12/2021 Z20.828 Contact with and (reese spected) exposure to other viral communicable diseases Izaiah Huynh, P.A. 06/19/2021 R35.0 Frequency of micturition Norah Overton, REBA 06/19/2021 N76.0 Acute vaginitis Norah calderon NP 06/19/2021 B35.2 Tinea manuum Norah calderon NP Plan of Treatment 09/17/2021 - Jayde Vivas, KO* R11.2 Nausea with vomiting, unspecified* New Labs:* CBC With Differential, Ordered: 09/17/21 * Comprehensive Metabolic Profil, Ordered: 09/17/21 * H Pylori Serum Quant Igm, Ordered: 09/17/21 * Erythrocyte Sedimentation Rate, Ordered: 09/17/21 * Lipase, Ordered: 09/17/21 * High Sensitivity C-Reactive Protein, Ordered: 09/17/21 * Gastrointestinal (GI) Panel, Ordered: 09/17/21 * R19.7 Diarrhea, unspecified* New Labs:* CBC With Differential, Ordered: 09/17/21 * Comprehensive Metabolic Profil, Ordered: 09/17/21 * H Pylori Serum Quant Igm, Ordered: 09/17/21 * Erythrocyte Sedimentation Rate, Ordered: 09/17/21 * Lipase, Ordered: 09/17/21 * High Sensitivity C-Reactive Protein, Ordered: 09/17/21 * Gastrointestinal (GI) Panel, Ordered: 09/17/21 * R10.30 Lower abdominal pain, unspecified* New Labs:* CBC With Differential, Ordered: 09/17/21 * Comprehensive Metabolic Profil, Ordered: 09/17/21 * H Pylori Serum Quant Igm, Ordered: 09/17/21 * Erythrocyte Sedimentation Rate, Ordered: 09/17/21 * Lipase, Ordered: 09/17/21 * High Sensitivity C-Reactive Protein, Ordered: 09/17/21 * Gastrointestinal (GI) Panel, Ordered: 09/17/21 Functional Status Description No Information Available Mental Status Description No Information Available Referrals Description No Information Available
--- OUTSIDE RECORDS SUMMARY | 2021-09-23 08:54 | CCD | Continuity of Care Document ---
Author Author Zakia ROSENBERG Organization Unknown Address [address] [place] [address] Phone [phone] Care Team Providers Care Divinity Teacher Name Role Phone Gianni Solorzano M.D. AUTM [phone] AUTM Unavailable Problems Active Problems Provider Date Central sleep apnea syndrome KO Seth Onset: 07/26 Obstructive sleep apnea syndrome KO Seth Onset: 08/22/2021 Social History Type Date Description Comments Sex Unknown Tobacco Use Start: Unknown Patient is a current smoker, smo kes every day Smoking Status Reviewed: 08/22/21 Patient is a current smoker, smokes every day Allergies, Adverse Reactions, Alerts Description No Known Drug Allergies Medications Active Medications SIG Qnty Indications Ordering Provide r Date Methadone HCL 1 every morning Unknown Wellbutrin XL 150mg Tablets ER 24H R 1 tab by mouth every morning Unknown 0 Wellbutrin XL 300mg Tablets ER 24H R 1 cap by mouth every morning Unknown 0 Zyprexa 15mg Tablets 1 cap by mouth every night Unknown Aripiprazole 5mg Tablets 1/2 every morning Unknown Buspirone HCL 7.5mg Tablets 1 cap by mouth every day Unknown Dok 100mg Tablets 1 cap by mouth every day Unknown Ondansetron HCL 4mg Tablets 1 cap by mouth twice a day 20tabs Unknown Senna Lax 8.6mg Tablets 2 tabs by mouth daily as needed for constipation Unknown Topamax 50mg Tablets Unknown Tylenol 325mg Capsules Unknown Immunizations Description No Information Available Vital Signs Date Vital Result Comment 08/22/2021 3:52pm BP Systolic 118 mmHg BP Diastolic 62 mmHg Heart Rate 79 /min O2 % BldC Oximetry 96 % Height 58.5 inches 4'10.50" Weight 138.38 lb BMI (Body Mass Index) 28.4 kg/m2 [place] Body Weight 100 lb Weight 62.767 kg BSA (Body Surface Area) 1.57 m2 07/11/2021 9:47am BP Systolic 112 mmHg BP Diastolic 68 mmHg Heart Rate 97 /min O2 % BldC Oximetry 99 % Height 58.5 inches 4'10.50" Weight 138.12 lb BMI (Body Mass Index) 28.4 kg/m2 [place] Body Weight 100 lb Neck Circumference in inches 15 [place] Score 23 Weight 62.654 kg BSA (Body Surface Area) 1.57 m2 Results Description No Information Available Procedures Date Code Description Status 08/22/2021 15423 Office/Outpatient Established Lo w MDM 20-29 Min Completed 07/11/2021 17023 Office/Outpatient New Low MDM 30 -44 Minutes Completed Medical Devices Description No Information Available Encounters Type Date Location Provider Dx Diagnosis Office Visit 08/22/2021 4:00p [facility] Pulmonary/Thoracic KO Seth G47.31 Primary central sleep apnea G47.33 Obstructive sleep apnea (jesus lt) (pediatric) Office Visit 07/11/2021 10:30a [facility] Pul[facility]/Thoracic KO Seth R40.0 Somnolence R06.83 Snoring G47.30 Sleep apnea, unspecified Assessments Date Code Description Provider 08/22/2021 G47.31 Primary central sleep apnea KO Parmar 08/22/2021 G47.33 Obstructive sleep apnea (adult) (pediatric) KO Seth 07/11/2021 R40.0 Somnolence KO Seth 07/11/2021 R06.83 Snoring KO Seth 07/11/2021 G47.30 Sleep apnea, unspecified KO Seth Plan of Treatment Future Appointment(s):* 09/10/2021 7:45 pm - [facility] Sleep Lab at [facility] Pulmonary/[facility] 08/22/2021 - KO Seth* G47.31 Primary central sleep apnea * G47.33 Obstructive sleep apnea (adult) (pediatric) * * Comments:* 1. Given a diagnosis of [place], the patient warrants a CPAP titration study.2. We discussed insurance guidelines for CPAP compliance and the patient was advised to call with any difficulties tolerating CPAP. * Follow up:* 1. Follow up eight weeks after titration with a download to monitor compliance and tolerance of pressure therapy. Functional Status Description No Information Available Mental Status Description No Information Available Referrals Refer to Dr Reason for Referral Status Appt Date Deidra Dolan F.N.P. [place] [facility] [address] [place], [place] [address] [phone] Deidra Dolan F.N.P. [place] Created [facility] [address] [place], [place] [address] [phone]
--- OUTSIDE RECORDS SUMMARY | 2021-09-23 08:54 | CCD | Continuity of Care Document ---
Author Author Zakia PARKER Organization Unknown Address [address] [place] [address] [place] [address] Phone [phone] Care Team Providers Care Animation Camera Operator Name Role Phone Gianni Solorzano MD [facility] [phone] Problems Description No Information Available Social History [...] Patient Has Never Vaped Smoking Status Reviewed: 08/11/21 The Patient Has Never Vaped Allergies, Adverse Reactions, Alerts Description No Known Drug Allergies Medications Active Medications SIG Qnty Indications Ordering Provide r Date Amoxicillin 875mg Tablets take one tablet every 12 hrs.x 10 days. 20tabs J01.10 Johnson Bravo JR., M.D. 08/11/2021 Methadone HCL Unknown Zyprexa Unknown Wellbutrin SR Unknown Topamax 25mg Tablets Unknown History Medications Ondansetron 4mg Tablets Dispers 1 tab by mouth dissolved on tongue q8 hours as needed nausea 10tabs A08.4 Johnson Bravo JR., M.D. 07/12/2021 - 07/21/2021 Loperamide HCL 2mg Tablets 2 tablets by mouth x1, then one tablet by mouth after each loose stool. 20tabs A 08.4 Johnson Braov JR., M.D. 07/12/2021 - 07/18/2021 Miconazole 7 100mg Suppository 1 applicatorful 2% by way of vagina every night at bedtime x7 days 7units N76.0 Johnson Bravo JR., M.D. 06/19/2021 - 06/26/2021 Clotrimazole Anti-Fungal 1% Cream apply to affected areas twice a day as directed for up to 3 weeks 56gm B35 .2 Johnson Bravo JR., M.D. 06/19/2021 - 06/25/2021 Ondansetron HCL 4mg Tablets take one tab every 8 hours for nausea 30tabs R11.0 Johnson Bravo JR., M.D. 03/14/2021 - 06/19/2021 Amoxicillin 875mg Tablets take one tablet every 12 hrs.x 10 days. 20tabs J06.9 Johnson Bravo JR., M.D. 03/14/2021 - 03/24/2021 Methylprednisolone 4mg TBPK dose pack as directed 21units H65.03 Johnson Bravo JR., M.D. 08/2021 - 03/08/2021 Immunizations Description No Information Available Vital Signs Date Vital Result Comment 08/11/2021 1:05pm BP Systolic 106 mmHg BP Diastolic 70 mmHg Heart Rate 101 /min Respiratory Rate 14 /min O2 % BldC Oximetry 95 % Body Temperature 97.3 F Weight 138.00 lb Height 68 inches 5'8" BMI (Body Mass Index) 21.0 kg/m2 Pain Level 6 07/12/2021 9:22am BP Systolic 123 mmHg BP Diastolic 76 mmHg Heart Rate 79 /min Respiratory Rate 12 /min O2 % BldC Oximetry 97 % Body Temperature 98.7 F Weight 138.00 lb Height 68 inches 5'8" BMI (Body Mass Index) 21.0 kg/m2 Pain Level 7 Results Test Acquired Date Facility Test Result H/L Range Note CBC With Differential 07/12/[address] [id number] [phone] White Blood Count 9.0 10 Normal 4.0-10.0 [...] 36.0-66.0 Lymph % 19.2 % Low 24.0-44.0 [place] % 5.7 % Normal 2.0-8.0 Eos % 0.1 % Normal 0.0-3.0 Baso % 0.3 % Normal 0.0-1.0 Immature Granulocyte % 0.6 % Normal 0-3.0 Nucleated Red Blood Cell % 0.0 % Normal 0-0 Neutrophils # 6.6 10 Normal 1.5-8.5 Lymph # 1.7 10 Normal 1.5-5.0 [place] # 0.5 10 Normal 0.0-0.8 Eos # 0.0 10 Normal 0.0-0.5 Baso # 0.0 10 Normal 0.0-0.2 Comprehensive Metabolic Profil 07/12/[address] [address] [phone] Glucose, Fasting 99 mg/dL Normal 70-100 Blood [...] 1.1 Low 1.2-2.2 Laboratory test finding 07/12/2021 [facility] [address] [place] [address] [phone] Lipase 49 U/L Low 73-393 Laboratory test finding 07/12/2021 [facility] [address] [place] [phone] Urine Culture FULL REPORT IN L <SEE NOTE> Normal 2, 3 Laboratory test finding 06/19/2021 [facility] [address] [place], [place] [id number] [phone] Urine Culture FULL REPORT IN L <SEE NOTE> Normal 4 Group A Stretp Culture 03/01/[address] [address] [phone] Group A Strep Culture FULL REPORT IN L <SEE NOTE> Nor mal 5 1 Units are mL/min/1.73 m2 Chronic Kidney Disease Staging per NKF: Stage I & II GFR >=60 Normal to Mildly Decreased Stage III GFR 30-59 Moderately Decreased Stage IV GFR 15-29 Severely Decreased Stage V GFR <15 Very Little GFR Left ESRD GFR <15 on GLASSWARE VERIFIER 2 Rx Loperimide/Ondansetron 3 FULL REPORT IN LAB NOTES ([facility]). SPECIMEN APPEARS CONTAMINATED 4 FULL REPORT IN LAB NOTES ([facility]). NO GROWTH CLINICAL SIGNIFICANCE 2 OR MORE ORGANISMS 5 FULL REPORT IN LAB NOTES ([facility]). NEGATIVE FOR STREP PYOGENES (GROUP A) Procedures Date Code Description Status 08/11/2021 29248 Office/Outpatient Established Lo w MDM 20-29 Min Completed 07/12/2021 13752 Office/Outpatient Established Lo w MDM 20-29 Min Completed 07/12/2021 60330 Office/Outpatient New Low MDM 30 -44 Minutes Completed 06/19/2021 50280 Office/Outpatient Established Lo w MDM 20-29 Min Completed 03/14/2021 84846 Office/Outpatient Established Lo w MDM 20-29 Min Completed 03/03/2021 56481 Office/Outpatient Established Lo w MDM 20-29 Min Completed 03/01/2021 74271 Office/Outpatient New Low MDM 30 -44 Minutes Completed Medical Devices Description No Information Available Encounters Type Date Location Provider Dx Diagnosis Office Visit 08/11/2021 12:25p Main Office KO Gay J01 .10 Acute frontal sinusitis, unspecified Z72.0 Tobacco use Office Visit 07/12/2021 9:10a Main Office Tierra Lee.A. R1 0.9 Unspecified abdominal pain A08.4 Viral intestinal infection, unspecified Z20.828 Contact w and exposure to ot h viral communicable diseases Office Visit 06/19/2021 3:30p Main Office Norah Overton NP R35. 0 Frequency of micturition N76.0 Acute vaginitis B35.2 Tinea manuum Office Visit 03/14/2021 11:30a Main Office KO Gay R11 .0 Nausea J06.9 Acute upper respiratory infe ction, unspecified Z20.828 Contact w and exposure to ot h viral communicable diseases Office Visit 03/03/2021 11:20a Main Office KO Krishnan H65.03 Acute serous otitis media, bilateral Office Visit 03/01/2021 10:45a Main Office KO Krishnan J00 Acute nasopharyngitis [common cold] Z20.828 Contact w and exposure to ot h viral communicable diseases Assessments Date Code Description Provider 08/11/2021 J01.10 Acute frontal sinusitis, unspeci fied KO Gay 08/11/2021 Z72.0 Tobacco use KO Ruiz 07/12/2021 R10.9 Unspecified abdominal pain Jam Huynh, P.A. 07/12/2021 A08.4 Viral intestinal infection, unsp ecified Izaiah Huynh, P.A. 07/12/2021 Z20.828 Contact with and (reese spected) exposure to other viral communicable diseases Izaiah Huynh, P.A. 06/19/2021 R35.0 Frequency of micturition Norah Overton NP 06/19/2021 N76.0 Acute vaginitis Norah calderon RIVER RAFTING GUIDE 06/19/2021 B35.2 Tinea manuum Norah calderon RIVER RAFTING GUIDE 03/14/2021 R11.0 Nausea KO Ruiz 03/14/2021 J06.9 Acute upper respiratory infectio n, unspecified KO Gay 03/14/2021 Z20.828 Contact with and (reese spected) exposure to other viral communicable diseases KO Gay 03/03/2021 H65.03 Acute serous otitis media, bilat eral KO Krishnan 03/01/2021 J00 Acute nasopharyngitis [common co ld] KO Krishnan 03/01/2021 Z20.828 Contact with and (reese spected) exposure to other viral communicable diseases KO Krishnan Plan of Treatment 08/11/2021 - KO Gay* J01.10 Acute frontal sinusitis, unspecified * New Medication:* Amoxicillin 875 mg - take one tablet every 12 hrs.x 10 days. * Comments:* rest/fluids/tylenol/time. * Z72.0 Tobacco use Functional Status Description No Information Available Mental Status Description No Information Available Referrals Description No Information Available
--- OUTSIDE RECORDS SUMMARY | 2021-09-23 08:54 | CCD | Continuity of Care Document ---
Author Author Zakia MELISSA [place] Organization Unknown Address [address] [place] [address] [place] [address] Phone [phone] Care Team Providers Care Shuttle Van Driver Name Role Phone Gianni Solorzano MD AUTM [phone] Dhaval Lim MD - GI AUTM [phone] Problems Description No Information Available Social History [...] H/L Range Note CBC With Differential 09/18/[address] [id number] [phone] White Blood Count 7.6 10 Normal 4.0-10.0 [...] 36.0-66.0 Lymph % 36.5 % Normal 24.0-44.0 [place] % 7.3 % Normal 2.0-8.0 Eos % 0.4 % Normal 0.0-3.0 Baso % 0.5 % Normal 0.0-1.0 Immature Granulocyte % 0.1 % Normal 0-3.0 Nucleated Red Blood Cell % 0.0 % Normal 0-0 Neutrophils # 4.2 10 Normal 1.5-8.5 Lymph # 2.8 10 Normal 1.5-5.0 [place] # 0.6 10 Normal 0.0-0.8 Eos # 0.0 10 Normal 0.0-0.5 Baso # 0.0 10 Normal 0.0-0.2 Comprehensive Metabolic Profil 09/18/[address] [address] [phone] Glucose, Fasting 100 mg/dL Normal 70-100 Blood [...] 1.0 Low 1.2-2.2 Laboratory test finding 09/18/[address] [address] [phone] H Pylori Serum Quant Igm <9.0 units Normal 0.0-8.9 2 Erythrocyte Sedimentation Rate 20 mm/hr Normal 0-20 Lipase 46 U/L Low 73-393 C Reactive Protein Quantitativ 0.41 mg/dL High 0.00-0.30 Gastrointestinal (GI) Panel 09/18/[address] [address] [phone] Gastrointestinal (GI) Panel This Gastrointes <SEE NOTE > 3 Laboratory test finding 09/17/[address] [address] [phone] Urine Culture FULL REPORT IN L <SEE NOTE> Normal 4 CBC With Differential 07/12/[address] [address] [phone] White Blood Count 9.0 10 Normal 4.0-10.0 [...] 36.0-66.0 Lymph % 19.2 % Low 24.0-44.0 [place] % 5.7 % Normal 2.0-8.0 Eos % 0.1 % Normal 0.0-3.0 Baso % 0.3 % Normal 0.0-1.0 Immature Granulocyte % 0.6 % Normal 0-3.0 Nucleated Red Blood Cell % 0.0 % Normal 0-0 Neutrophils # 6.6 10 Normal 1.5-8.5 Lymph # 1.7 10 Normal 1.5-5.0 [place] # 0.5 10 Normal 0.0-0.8 Eos # 0.0 10 Normal 0.0-0.5 Baso # 0.0 10 Normal 0.0-0.2 Comprehensive Metabolic Profil 07/12/2021 [place] [address] [phone] Glucose, Fasting 99 mg/dL Normal 70-100 Blood Urea Nitrogen 12 mg/dL Normal 7-18 Creatinine For GFR 0.87 mg/dL Normal 0.55-1.30 Glomerular Filtration Rate > 60.0 Normal >60 5 Sodium Level 138 mEq/L Normal 136-145 Potassium [...] 1.1 Low 1.2-2.2 Laboratory test finding 07/12/[address] [address] [phone] Lipase 49 U/L Low 73-393 Laboratory test finding 07/12/[address] [address] [phone] Urine Culture FULL REPORT IN L <SEE NOTE> Normal 6, 7 Laboratory test finding 06/19/2021 [place] 1277321 [phone] Urine Culture FULL REPORT IN L <SEE NOTE> Normal 8 1 Units are mL/min/1.73 m2 Chronic Kidney Disease Staging per NKF: Stage I & II GFR >=60 Normal to Mildly Decreased Stage III GFR 30-59 Moderately Decreased Stage IV GFR 15-29 Severely Decreased Stage V GFR <15 Very Little GFR Left ESRD GFR <15 on UNEMPLOYMENT INSURANCE HEARING OFFICER 2 Negative <9.0 Equivocal 9.0 - 11.0 Positive >11.0 . . This test was developed and its performance characteristics determined by [facility]. It has not been cleared or approved by the Food and Drug Administration. Performed at: RN - [facility] [place] [address], [place], [place] [id number] Blackener: Paola Chavez MD, Phone: [phone] This Gastrointestinal PCR Pa soila detects the [...] infection. NEGATIVE by MULTIPLEXED NUCLEIC ACID PCR 4 FULL REPORT IN LAB NOTES ([facility]). SPECIMEN APPEARS CONTAMINATED 5 Units are mL/min/1.73 m2 Chronic Kidney Disease Staging per NKF: Stage I & II GFR >=60 Normal to Mildly Decreased Stage III GFR 30-59 Moderately Decreased Stage IV GFR 15-29 Severely Decreased Stage V GFR <15 Very Little GFR Left ESRD GFR <15 on UNEMPLOYMENT INSURANCE HEARING OFFICER 6 Rx Loperimide/Ondansetron 7 FULL REPORT IN LAB NOTES ([facility]). SPECIMEN APPEARS CONTAMINATED 8 FULL REPORT IN LAB NOTES ([facility]). NO GROWTH CLINICAL SIGNIFICANCE 2 OR MORE ORGANISMS Procedures Date Code Description Status 09/17/2021 55322 Office/Outpatient Established Mo d MDM 30-39 Min Completed 08/11/2021 59702 Office/Outpatient Established Lo w MDM 20-29 Min Completed 07/12/2021 91388 Office/Outpatient Established Lo w MDM 20-29 Min Completed 07/12/2021 46716 Office/Outpatient New Low MDM 30 -44 Minutes Completed 06/19/2021 15745 Office/Outpatient Established Lo w MDM 20-29 Min [...] d KO Krishnan 09/17/2021 R19.7 Diarrhea, unspecified Jayde Melissa, KO 09/17/2021 R10.30 Lower abdominal pain, unspecifie d KO Krishnan 08/11/2021 J01.10 Acute frontal sinusitis, unspeci fied KO Gay 08/11/2021 Z72.0 Tobacco use KO Ruiz 07/12/2021 R10.9 Unspecified abdominal pain Jam Huynh P.AChyna 07/12/2021 A08.4 Viral intestinal infection, unsp ecified Izaiah Huynh P.A. 07/12/2021 Z20.828 Contact with and (reese spected) exposure to other viral communicable diseases Izaiah Huynh P.AChyna 06/19/2021 R35.0 Frequency of micturition Norah Overton NP 06/19/2021 N76.0 Acute vaginitis Norah calderon NP 06/19/2021 B35.2 Tinea manuum Norah calderon NP Plan of Treatment No Information Available Functional Status Description No Information Available Mental Status Description No Information Available Referrals Refer to Reason for Referral Status Appt Date Dhaval Lim MD chronic/recurrent diarrhea a nd abdominal pain, negative GI panel and elevated CRP, needs further eval for IBD Created / 00 826 [facility] [id number] [phone]
--- OUTSIDE RECORDS SUMMARY | 2021-09-23 08:54 | CCD ---
Author Organization Unknown Address [address] [place] [address] Phone [phone] Care Team Providers Care President Celebrity Acquistion Name Role Phone Cheri Ordoñez Unavailable Unavailable Allergies Code Code System Name Reaction Severity Status Onset NKDA Medications Name Status Start Date Stop Date amoxicillin 500 mg capsule TAKE ONE CAPSULE BY MOUTH EVERY 8 HOURS UNTIL GONE Completed 12/22/2020 amoxicillin 875 mg tablet TAKE ONE TABLET BY MOUTH EVERY TWELVE HOURS FOR 10 DAYS Completed 09/06/2021 amoxicillin 875 mg-potassium clavulanate 125 mg tablet TAKE ONE TABLET BY MOUTH TWICE DAILY Completed Anti-Diarrheal (loperamide) 2 mg tablet TAKE TWO TABLETS BY MOUTH ONCE, THEN TAKE ONE TABLET AFTER EACH LOOSE STOOL Completed 08/08/2021 aripiprazole 2 mg tablet TAKE ONE TABLET BY MOUTH ONCE DAILY Completed aripiprazole 5 mg tablet TAKE 1/2 TABLET BY MOUTH EVERY MORNING Completed 08/08/2021 Banophen 25 mg capsule TAKE THREE CAPSULES BY MOUTH AT BEDTIME Completed 12/22/2020 Banophen 50 mg capsule TAKE ONE CAPSULE BY MOUTH AT BEDTIME Completed benzonatate 200 mg capsule TAKE ONE CAPSULE BY MOUTH THREE TIMES DAILY FOR 7 DAYS Completed 08/08/2021 bupropion HCl XL 150 mg 24 hr tablet, ex tended release TAKE ONE TABLET BY MOUTH EVERY MORNING Active Not available bupropion HCl XL 300 mg 24 hr tablet, ex tended release TAKE ONE TABLET BY MOUTH EVERY MORNING Active Not available buspirone 7.5 mg tablet TAKE ONE TABLET BY MOUTH THREE TIMES DAILY Active Not available clotrimazole 1 % topical cream APPLY TO THE AFFECTED AREA(S) topically THREE TIMES DAILY DIRECTED FOR UP TO THREE WEEKS Active Not available DOK 100 mg capsule TAKE ONE CAPSULE BY MOUTH TWICE DAILY Active N ot available hydrocortisone 0.5 % topical cream APPLY A THIN LAYER TO THE AFFECTED AREA(S) ON SCALP BY TOPICAL ROUTE 2 TIMES PER DAY Active Not available hydrocortisone 1 % topical cream Aplly to rash on right hand bid for 2 weeks. Active Not available ibuprofen 800 mg tablet TAKE ONE TABLET BY MOUTH EVERY 8 HOURS NEEDED FOR PAIN LEVEL 6-10 Completed 12/22/2020 methadone (bulk) 160 ea day Active Not available methylprednisolone 4 mg tablets in a dos e pack TAKE DIRECTED PER PACKAGE INSTRUCTIONS Completed 08/08/2021 metronidazole 500 mg tablet TAKE ONE TABLET BY MOUTH TWICE DAILY FOR SEVEN DAYS Completed 12/22/2020 miconazole nitrate 100 mg vaginal suppos itory insert ONE APPLICATORFUL into THE VAGINA AT BEDTIME FOR 7 DAYS Completed 08/08/2021 nicotine 7 mg/24 hr daily transdermal pa tch Apply 1 patch every day by transdermal route. Active Not available NightTime Sleep Aid (diphenhydramine) 25 mg tablet TAKE ONE TABLET BY MOUTH AT BEDTIME Completed olanzapine 15 mg tablet TAKE 1/2 TABLET BY MOUTH AT BEDTIME Active Not available olanzapine 5 mg tablet TAKE ONE TABLET BY MOUTH AT BEDTIME Completed omeprazole 20 mg capsule,delayed release TAKE ONE CAPSULE BY MOUTH ONCE DAILY Completed ondansetron 4 mg disintegrating tablet DISSOLVE ONE TABLET ON THE TONGUE EVERY 6 TO 8 HOURS NEEDED FOR NAUSEA AND VOMITING Completed 08/08/2021 ondansetron 8 mg disintegrating tablet DISSOLVE ONE TABLET ON TONGUE EVERY 8 HOURS NEEDED FOR NAUSEA AND VOMITING Active Not available ondansetron HCl 4 mg tablet TAKE ONE TABLET BY MOUTH EVERY 6 HOURS NEEDED FOR NAUSEA FOR TWO DAYS Active Not available senna 8.6 mg tablet TAKE ONE TABLET BY MOUTH TWICE DAILY Completed terbinafine HCl 250 mg tablet TAKE ONE TABLET BY MOUTH ONCE DAILY Completed topiramate 100 mg tablet TAKE ONE TABLET BY MOUTH AT BEDTIME Completed topiramate 25 mg tablet Active Not avai lable Wellbutrin SR 100 mg tablet, 12 hr susta ined-release Take 1 tablet every day by oral route. Completed 08/08/2021 Problems Name Status Onset Date Source Generalized Anxiety Disorder Active 01/10/2016 His tory Dental Caries on Smooth Surface Penetrating into Pulp Active 11/26/2018 History Bipolar Disorder Active 05/03/2020 History Opioid Dependence in Remission Active 05/03/2020 H istory Body Measurement Finding Unknown 05/03/[address] Concept Active 05/03/2020 History Clinical Finding Unknown 05/03/2020 History Obstructive Sleep Apnea Syndrome Active 01/10/2021 Fatigue Active 01/10/2021 Tinea Capitis Unknown 01/31/2021 Migraine Active 03/28/2021 Eczema of Scalp Active 03/28/2021 Tobacco User Active 04/25/2021 Amenorrhea Active 07/10/2021 Eczema Active 09/06/2021 Procedures Date Name Performed by 06/05/2020 Delivery Information not avai lable 12/22/2020 Electrocardiogram [facility] [address] [place] [address] (Work Place) Notes: No known surgical history Results Lab Results Date Name Specimen Result Interpretation Description Value Range Status Address 05/11/2021 Cbc Normal White Blood Count 8.6 10 4.0-10. 0 10 [facility]: [address] [place] [address] Normal Red Blood Count 4.27 10 4.00-5.40 10 [facility]: [address] [place] [address] Normal Hemoglobin 13.2 g/dL 12.0-15.5 g/dL [facility]: [address] [place] [address] Normal Hematocrit 40.5 % 36.0-47.0 % [facility]: [address] [place] [address] Normal Mean Corpuscular Volume 94.8 fL 80.0 -96.0 fL [facility]: [address] [place] [address] Normal Mean Corpuscular Hemoglobin 30.9 pg 27.0-33.0 pg [facility]: [address] [place] [address] Normal Mean Corpuscular HGB Conc 32.6 g/dL 32.0-36.5 g/dL [facility]: [address] [place] [address] Normal Red Cell Distribution Width 12.8 % 1 1.5-14.5 % [facility]: [address] [place] [address] Normal Platelet Count, Automated 386 10 150 -450 10 [facility]: [address] [place] [address] Normal Nucleated Red Blood Cell % 0.0 % 0- 0 % [facility]: [address] [place] [address] 05/11/2021 CMP, Serum or Plasma Normal Glucose, Fastin g 81 mg/dL 70-100 mg/dL [facility]: [address] [facility] Normal Blood Urea Nitrogen 17 mg/dL 7-18 mg /dL [facility]: [address] [facility] Normal Creatinine for GFR 0.72 mg/dL 0.55-1 .30 mg/dL [facility]: [address] [facility] Normal Glomerular Filtration Rate > 60.0 >6 0 [facility]: [address] [facility] Normal Sodium Level 136 mEq/L 136-145 mEq/L [facility]: [address] [facility] Normal Potassium Serum 4.5 mEq/L 3.5-5.1 mE q/L [facility]: [address] [facility] Normal Chloride Level 102 mEq/L 98-107 mEq/ L [facility]: [address] [facility] Normal Carbon Dioxide Level 32 mEq/L 21-32 mEq/L [facility]: [address] [facility] Low Anion Gap 2 mEq/L 8-16 mEq/L [facility]: [address] [facility] Normal Calcium Level 9.5 mg/dL 8.5-10.1 mg/ dL [facility]: [address] [facility] Normal AST/SGOT 13 U/L 7-37 U/L [facility]: [address] [facility] Normal ALT/SGPT 22 U/L 12-78 U/L [facility]: [address] [facility] Normal Alkaline Phosphatase 85 U/L 45-117 U /L [facility]: [address] [facility] Normal Bilirubin,total 0.5 mg/dL 0.2-1.0 mg /dL [facility]: [address] [facility] Normal Total Protein 7.9 gm/dL 6.4-8.2 gm/d L [facility]: [address] [facility] Normal Albumin 4.0 gm/dL 3.2-5.2 gm/dL Lisy l [facility]: [address] [place] [address] Low Albumin/globulin Ratio 1.0 1.2-2. 2 [facility]: [address] [place] [address] 05/11/2021 Hepatitis C Ab, Serum Normal Hepati tis C Virus Elza Index < 0.0 index <0.8 index [facility] nter: [address] [place] [address] 05/11/2021 HBsAg (Hepatitis B Surface Ag), Serum Normal Hepatitis B Surface Antigen negative negative [facility] Center: [address] [place] [address] 05/11/2021 Syphilis Normal Syphilis nonreactive nonreacti ve [facility]: [address] [place] [address] 05/11/2021 beta-HCG, Qualitative, Serum or Plasma Normal HCG, Serum Qualitative negative negative [facility] Center: [address] [place] [address] 05/11/2021 HIV 1+2 AB + HIV 1 P24 Ag, Qualitative Immunoassay, Serum Normal HIV 1&2 Screen Centaur negative negative [facility]: [address] [place] [address] 05/11/2021 CT + NG DNA, Qual, PCR, Unspecified Specimen No rmal Chlamydia DNA Amplification negative negative [facility] Center: [address] [place] [address] Normal GC DNA Amplification negative negati ve [facility]: [address] [place] [address] 05/11/2021 Hepatitis C RNA, QL, PCR, Unspecified Specimen Normal HCV RNA PHILIPPE Qualitative negative negative [facility] Center: [address] [place] [address] 04/12/2021 Awilda Strep a Normal Awilda Strep a negative ne gative [facility]: [address] [place] [address] 04/12/2021 CBC W/ Auto Diff Normal White Blood Count 8.7 10 4.0-10.0 10 [facility]: [address] [place] [address] Normal Red Blood Count 4.29 10 4.00-5.40 10 [facility]: [address] [place] [address] Normal Hemoglobin 13.2 g/dL 12.0-15.5 g/dL [facility]: [address] [facility] Normal Hematocrit 40.0 % 36.0-47.0 % [facility]: [address] [facility] Normal Mean Corpuscular Volume 93.2 fL 80.0 -96.0 fL [facility]: [address] [facility] Normal Mean Corpuscular Hemoglobin 30.8 pg 27.0-33.0 pg Final [facility]: [address] [facility] Normal Mean Corpuscular HGB Conc 33.0 g/dL 32.0-36.5 g/dL Final [facility]: [address] [facility] Normal Red Cell Distribution Width 12.7 % 1 1.5-14.5 % [facility]: 0 [facility] Normal Platelet Count, Automated 296 10 150 -450 10 [facility]: [address] [facility] Normal Neutrophils % 63.4 % 36.0-66.0 % [facility]: [address] [facility] Normal Lymph % 28.4 % 24.0-44.0 % Final [facility]: [address] [facility] Normal [place] % 7.3 % 2.0-8.0 % [facility]: [address] [facility] Normal Eos % 0.2 % 0.0-3.0 % [facility]: [address] [facility] Normal Baso % 0.5 % 0.0-1.0 % [facility]: [address] [facility] Normal Immature Granulocyte % 0.2 % 0-3.0 % [facility]: [address] [facility] Normal Nucleated Red Blood Cell % 0.0 % 0- 0 % [facility]: [address] [facility] Normal Neutrophils # 5.5 10 1.5-8.5 10 [facility]: [address] [facility] Normal Lymph # 2.5 10 1.5-5.0 10 [facility]: [address] [facility] Normal [place] # 0.6 10 0.0-0.8 10 [facility]: [address] [facility] Normal Eos # 0.0 10 0.0-0.5 10 [facility]: [address] [facility] Normal Baso # 0.0 10 0.0-0.2 10 [facility]: [address] [facility] 04/12/2021 Hepatic Function Panel, Serum Normal AST/SG OT 11 U/L 7-37 U/L [facility]: [address] [facility] Normal ALT/SGPT 16 U/L 12-78 U/L [facility]: [address] [facility] Normal Alkaline Phosphatase 71 U/L 45-117 U /L [facility]: [address] [facility] Normal Bilirubin,total 0.9 mg/dL 0.2-1.0 mg /dL [facility]: [address] [facility] Normal Bilirubin,direct 0.2 mg/dL 0.0-0.2 m g/dL [facility]: [address] [facility] Normal Total Protein 8.0 gm/dL 6.4-8.2 gm/d L [facility]: 0 [facility] Normal Albumin 4.1 gm/dL 3.2-5.2 gm/dL Lisy l [facility]: 0 [facility] Low Albumin/globulin Ratio 1.1 1.2-2. 2 [facility]: [address] [facility] 04/12/2021 BMP, Serum or Plasma Normal Glucose, Fastin g 76 mg/dL 70-100 mg/dL [facility]: [address] 0 [facility] Normal Blood Urea Nitrogen 11 mg/dL 7-18 mg /dL [facility]: 0 [facility] Normal Creatinine for GFR 0.79 mg/dL 0.55-1 .30 mg/dL [facility]: [address] [facility] Normal Glomerular Filtration Rate > 60.0 >6 0 [facility]: [address] [place] [address] Normal Sodium Level 138 mEq/L 136-145 mEq/L [facility]: [address] [place] [address] Normal Potassium Serum 4.1 mEq/L 3.5-5.1 mE q/L [facility]: [address] [place] [address] Normal Chloride Level 103 mEq/L 98-107 mEq/ L [facility]: [address] [place] [address] Normal Carbon Dioxide Level 30 mEq/L 21-32 mEq/L [facility]: [address] [place] [address] Low Anion Gap 5 mEq/L 8-16 mEq/L [facility]: [address] [place] [address] Normal Calcium Level 9.1 mg/dL 8.5-10.1 mg/ dL [facility]: [address] [place] [address] 04/12/2021 TSH, Serum or Plasma Normal Thyroid Stimulating Hormone 0.594 uIU/mL 0.358-3.740 uIU/mL [facility] nter: [address] [place] [address] 04/12/2021 T4, Free, Serum Normal Free T4 0.92 NG/dL 0.76-1.46 NG/dL [facility]: [address] [place] [address] 04/12/2021 [place] Reflex Ebv Comprehensive Normal [place] Reflex Ebv Comp negative negative [facility] nter: [address] [place] [address] 04/12/2021 beta-HCG, Qualitative, Serum or Plasma Normal HCG, Serum Qualitative negative negative [facility]: [address] [place] [address] 04/12/2021 Respiratory Virus Panel NASOPHARYNX No observ ation recorded. [facility]: [address] [place] [address] 04/12/2021 Lyme Disease Igg+igm Ab, Serum Normal Lyme Disease IgG/IgM Antibodie <0.91 isr 0.00-0.90 isr [facility]: [address] [place] [address] Normal Lyme Disease IgM Ab Quantitati <0.80 index 0.00-0.79 index [facility]: [address] [place] [address] 04/12/2021 Ebv Ab Comprehensive Normal Ebv Viral Capsi d Ag IgM <36.0 U/mL 0.0-35.9 U/mL [facility]: [address] [facility] High Ebv Viral Capsid Ag IgG >600.0 U/mL 0.0-17.9 U/mL [facility]: [address] [facility] High Ebv Ab to Nuclear Antigen 277.0 U/mL 0.0-17.9 U/mL [facility]: [address] [facility] Normal Ebv Interpretation . Fin [facility]: [address] [facility] 01/22/2021 Awilda Covid Antigen Normal Awilda Covid Anti gen negative negative [facility]: [address] 0 [facility] 01/22/2021 Istat Chem8+ Panel Normal Istat HCT 41.0 % 38. 0-51.0 % [facility]: [address] [facility] Normal Istat Glucose 83 mg/dL 70-105 mg/dL [facility]: [address] [facility] Normal Istat Sodium 138 mEq/L 136-145 mEq/L [facility]: [address] [facility] Normal Istat Potassium 4.6 mEq/L 3.5-5.1 mE q/L [facility]: [address] [facility] Normal Istat Ca++ 4.9 mg/dL 4.5-5.3 mg/dL [facility]: [address] [facility] Normal Istat Chloride 99 mEq/L 98-109 mEq/L [facility]: [address] [facility] High Istat CO2 31.0 mm/L 23.0-27.0 mm/L [facility]: [address] [facility] Normal Istat BUN 9 mg/dL 8-26 mg/dL [facility]: [address] [facility] Normal Istat Creatinine 0.8 mg/dL 0.6-1.3 m g/dL [facility]: [address] [facility] 01/22/2021 Istat B-HCG Normal Istat B-HCG < 5.0 F inal [facility]: [address] [facility] 01/22/2021 CBC W/ Auto Diff Normal White Blood Count 6.9 10 4.0-10.0 10 Final [facility]: [address] [facility] Normal Red Blood Count 4.43 10 4.00-5.40 10 [facility]: [address] [facility] Normal Hemoglobin 13.3 g/dL 12.0-15.5 g/dL [facility]: [address] [facility] Normal Hematocrit 40.9 % 36.0-47.0 % [facility]: [address] [place] [address] Normal Mean Corpuscular Volume 92.3 fL 80.0 -96.0 fL [facility]: [address] [facility] Normal Mean Corpuscular Hemoglobin 30.0 pg 27.0-33.0 pg [facility]: [address] [facility] Normal Mean Corpuscular HGB Conc 32.5 g/dL 32.0-36.5 g/dL [facility]: [address] [facility] Normal Red Cell Distribution Width 12.6 % 1 1.5-14.5 % [facility]: [address] [facility] Normal Platelet Count, Automated 299 10 150 -450 10 [facility]: [address] [facility] Normal Neutrophils % 52.0 % 36.0-66.0 % [facility]: [address] [facility] Normal Lymph % 38.0 % 24.0-44.0 % [facility]: [address] [facility] Normal [place] % 7.8 % 2.0-8.0 % [facility]: [address] [facility] Normal Eos % 1.5 % 0.0-3.0 % [facility]: [address] [facility] Normal Baso % 0.7 % 0.0-1.0 % [facility]: [address] [facility] Normal Immature Granulocyte % 0.0 % 0-3.0 % [facility]: [address] [facility] Normal Nucleated Red Blood Cell % 0.0 % 0- 0 % [facility]: [address] [facility] Normal Neutrophils # 3.6 10 1.5-8.5 10 Lisy [facility]: [address] [facility] Normal Lymph # 2.6 10 1.5-5.0 10 [facility]: [address] [facility] Normal [place] # 0.5 10 0.0-0.8 10 [facility]: [address] [facility] Normal Eos # 0.1 10 0.0-0.5 10 [facility]: [address] [facility] Normal Baso # 0.1 10 0.0-0.2 10 [facility]: [address] [facility] 01/22/2021 ESR (Erythrocyte Sedimentation Rate), Blood Hig h Erythrocyte Sedimentation Rate 23 mm/HR 0-20 mm/HR [facility]: [address] [facility] 01/22/2021 Hepatic Function Panel, Serum Normal AST/SG OT 16 U/L 7-37 U/L [facility]: [address] [facility] Normal ALT/SGPT 18 U/L 12-78 U/L [facility]: [address] [facility] Normal Alkaline Phosphatase 89 U/L 45-117 U /L [facility]: [address] [facility] Normal Bilirubin,total 0.6 mg/dL 0.2-1.0 mg /dL [facility]: 0 [facility] Normal Bilirubin,direct 0.2 mg/dL 0.0-0.2 m g/dL [facility]: 0 [facility] Normal Total Protein 8.0 gm/dL 6.4-8.2 gm/d L [facility]: 0 [facility] Normal Albumin 3.9 gm/dL 3.2-5.2 gm/dL Lisy l [facility]: 0 [facility] Low Albumin/globulin Ratio 1.0 1.2-2. 2 [facility]: 0 [facility] 01/22/2021 BMP, Serum or Plasma Normal Glucose, Fastin g 80 mg/dL 70-100 mg/dL [facility]: [address] 0 [facility] Normal Blood Urea Nitrogen 10 mg/dL 7-18 mg /dL [facility]: [address] [place] [address] Normal Creatinine for GFR 0.85 mg/dL 0.55-1 .30 mg/dL [facility]: [address] [place] [address] Normal Glomerular Filtration Rate > 60.0 >6 0 [facility]: 0 [facility] Normal Sodium Level 137 mEq/L 136-145 mEq/L [facility]: 0 [facility] D Potassium Serum 4.7 mEq/L 3.5-5.1 mE q/L [facility]: 0 [facility] Normal Chloride Level 103 mEq/L 98-107 mEq/ L [facility]: [address] [place] [address] Normal Carbon Dioxide Level 30 mEq/L 21-32 mEq/L [facility]: [address] [place] [address] Low Anion Gap 4 mEq/L 8-16 mEq/L [facility]: [address] [place] [address] Normal Calcium Level 9.1 mg/dL 8.5-10.1 mg/ dL [facility]: 0 [facility] 01/22/2021 [place] Screen Normal [place] Scrn negative negative [facility]: [address] [place] [address] 01/22/2021 C Reactive Protein, QN, Serum or Plasma High C Reactive Protein Quantitativ 0.52 mg/dL 0.00-0.30 mg/dL [facility] Center: [address] [place] [address] 01/22/2021 PT/INR Normal Prothrombin Time 13.1 secon ds 12.5-14.3 seconds [facility]: [address] [facility] Normal Inr 0.97 [facility]: [address] [facility] 01/22/2021 Partial Thromboplastin Time Normal Partial Thromboplastin Time 29.5 seconds 24.2-38.5 seconds [facility] nter: [address] [facility] 01/22/2021 D-dimer, Quant, Plasma Normal D-dimer Quant 412.19 NG/mL <500 NG/mL [facility]: [address] 0 [facility] 01/20/2021 Urinalysis, Dipstick Normal Appearance, Uri ne clear clear [facility]: [address] [facility] Normal Color, Urine yellow yellow [facility]: [address] [facility] Normal pH,urine 5.0 units 5.0-9.0 units [facility]: [address] [facility] Normal Specific Shaniko Urine Auto 1.027 1 .002-1.035 [facility]: [address] [facility] High Protein, Urine Auto 1+ mg/dL negativ e mg/dL [facility]: [address] [facility] Normal Glucose, Urine (UA) Auto negative mg /dL negative mg/dL [facility]: [address] [facility] Normal Ketone, Urine Auto negative mg/dL ne gative mg/dL [facility]: [address] [facility] Normal Urobilinogen, Urine Auto 0.2 mg/dL 0 .0-2.0 mg/dL [facility]: [address] [facility] Normal Bilirubin, Urine Auto negative negat perry [facility]: [address] [facility] Normal Nitrite, Urine Auto negative negativ e [facility]: [address] [facility] High Leukocyte Esterase, Urine Auto 1+ negative [facility]: [address] [facility] Normal Blood, Urine Blood negative negative [facility]: [address] [facility] Normal WBC, Urine Auto 0 /hpf 0-3 /hpf [facility]: [address] [facility] Normal RBC, Urine Auto 2 /hpf 0-3 /hpf [facility]: [address] [facility] Normal Bacteria, Urine Auto negative negati ve [facility]: [address] [facility] Normal Squamous Epithelial Cell Ur AU 2 /hp f 0-6 /hpf [facility]: [address] [facility] Normal Mucus, Urine small negative [facility]: [address] [facility] Normal Hyaline Cast, Urine Auto 0 /lpf 0-1 /lpf [facility]: [address] [facility] 01/20/2021 Cardiovascular Assessment Panel, Serum Normal CPK Creatine Phosphokinase 122 U/L 26-192 U/L [facility] Center: [address] [facility] Normal CK-mb Value Mass 1.4 NG/mL <3.6 NG/m L [facility]: [address] [facility] Normal mb/CK Relative Index 1.15 < or =4 [facility] Center: [address] [facility] Normal Troponin I < 0.02 NG/mL < 0.10 NG/mL [facility]: [address] [facility] 12/25/2020 Electrocardiogram Rate & Rhythm [facility]: [address] [place] Qrs [facility]: [address] [facility] [address], [place] NM Interval [facility]: [address] [facility] [address], [place] QRS Duration [facility]: [address] [facility] [address] [place] QT Interval [facility]: [address] [facility] [address] [place] 12/22/2020 CBC W/ Auto Diff Normal White Blood Count 7.0 10 4.0-10.0 10 [facility]: [address] [facility] Normal Red Blood Count 4.40 10 4.00-5.40 10 [facility]: [address] [facility] Normal Hemoglobin 13.2 g/dL 12.0-15.5 g/dL [facility]: [address] [facility] Normal Hematocrit 40.3 % 36.0-47.0 % [facility]: [address] [facility] Normal Mean Corpuscular Volume 91.6 fL 80.0 -96.0 fL Final [facility]: [address] [facility] Normal Mean Corpuscular Hemoglobin 30.0 pg 27.0-33.0 pg [facility]: [address] [facility] Normal Mean Corpuscular HGB Conc 32.8 g/dL 32.0-36.5 g/dL Final [facility]: [address] [facility] Normal Red Cell Distribution Width 13.2 % 1 1.5-14.5 % [facility]: [address] [place] [address] Normal Platelet Count, Automated 319 10 150 -450 10 [facility]: [address] [facility] Normal Neutrophils % 45.4 % 36.0-66.0 % [facility]: [address] [facility] Normal Lymph % 43.2 % 24.0-44.0 % [facility]: [address] [facility] High [place] % 9.3 % 0.0-5.0 % Final [facility]: [address] [facility] Normal Eos % 1.4 % 0.0-3.0 % [facility]: [address] [facility] Normal Baso % 0.4 % 0.0-1.0 % Final [facility]: [address] [facility] Normal Immature Granulocyte % 0.3 % 0-3.0 % [facility]: [address] [facility] Normal Nucleated Red Blood Cell % 0.0 % 0- 0 % [facility]: [address] [facility] Normal Neutrophils # 3.2 10 1.5-8.5 10 [facility]: [address] [facility] Normal Lymph # 3.0 10 1.5-5.0 10 [facility]: [address] [facility] Normal [place] # 0.7 10 0.0-0.8 10 [facility]: [address] [facility] Normal Eos # 0.1 10 0.0-0.5 10 [facility]: [address] [facility] Normal Baso # 0.0 10 0.0-0.2 10 [facility]: [address] [facility] 12/22/2020 CMP, Serum or Plasma Normal Glucose, Fastin g 91 mg/dL 70-100 mg/dL [facility]: 83 [address] [facility] Normal Blood Urea Nitrogen 13 mg/dL 7-18 mg /dL [facility]: [address] [facility] Normal Creatinine for GFR 0.91 mg/dL 0.55-1 .30 mg/dL [facility]: [address] [facility] Normal Glomerular Filtration Rate > 60.0 >6 0 [facility]: [address] [facility] Normal Sodium Level 139 mEq/L 136-145 mEq/L [facility]: [address] [facility] Normal Potassium Serum 3.9 mEq/L 3.5-5.1 mE q/L [facility]: [address] [facility] Normal Chloride Level 102 mEq/L 98-107 mEq/ L [facility]: [address] [facility] Normal Carbon Dioxide Level 30 mEq/L 21-32 mEq/L [facility]: [address] [facility] Low Anion Gap 7 mEq/L 8-16 mEq/L [facility]: [address] [facility] Normal Calcium Level 9.3 mg/dL 8.5-10.1 mg/ dL [facility]: [address] [facility] Normal AST/SGOT 10 U/L 7-37 U/L [facility]: [address] [facility] Normal ALT/SGPT 19 U/L 12-78 U/L [facility]: [address] [facility] Normal Alkaline Phosphatase 73 U/L 45-117 U /L [facility]: [address] [place] [address] Normal Bilirubin,total 0.6 mg/dL 0.2-1.0 mg /dL [facility]: [address] [place] [address] Normal Total Protein 7.6 gm/dL 6.4-8.2 gm/d L [facility]: [address] [place] [address] Normal Albumin 3.9 gm/dL 3.2-5.2 gm/dL Lisy l [facility]: [address] [place] [address] Low Albumin/globulin Ratio 1.1 1.2-2. 2 [facility]: [address] [place] [address] 12/22/2020 TIBC (Total Iron-binding Capacity), Serum Normal Iron (Fe) 84 ug/dL 50-170 ug/dL [facility] nter: [address] [place] [address] Normal Total Iron Binding Capacity 419 ug/d L 250-450 ug/dL [facility]: [address] [place] [address] Normal Percent Saturation 20.0 % 13.2-45.0 % [facility]: [address] [place] [address] 12/22/2020 TSH + Free T4, Serum Normal Thyroid Stimulating Hormone 1.180 uIU/mL 0.358-3.740 uIU/mL [facility] nter: [address] [place] [address] Low Free T4 0.73 NG/dL 0.76-1.46 NG/dL F inal [facility]: [address] [place] [address] 12/22/2020 Vitamin D, 25-Hydroxy, Total, Serum Normal Total 25(Oh) Vitamin D 30.2 NG/mL 30.0-100.0 NG/mL [facility]: [address] [place] [address] 12/22/2020 beta-HCG, Qualitative, Serum or Plasma Normal HCG, Serum Qualitative negative negative [facility] Center: [address] [place] [address] Past Encounters 09/06/2021 Eczema; Obstructive Sleep Apnea Syndrome; Generalized Anxiety Disorder; Tobacco User Gianni Solorzano MD: [address] [place] [phone], Ph. 08/08/2021 Administrative Reason for Encounter; Generalized Anxiety Disorder; Bipolar Disorder Igor Choi RPA-C: [address] [facility], [facility] [address], [place] [address], Ph. 07/10/2021 Migraine; Tobacco User; Amenorrhea Gianni Solorzano MD: [address] [place] [address], Ph. 04/25/2021 Eczema of Scalp; Obstructive Sleep Apnea Syndrome; Migraine; Tobacco User Gianni Solorzano MD: [address] [place] [address], Ph. 03/28/2021 Eczema of Scalp; Obstructive Sleep Apnea Syndrome; Migraine Gianni Solorzano MD: [address] [facility], [facility] [address], [place] [address], Ph. 01/31/2021 Tinea Capitis Gianni Solorzano MD: [address] [facility], [facility] [address], [place] [address], Ph. 01/10/2021 Fatigue; Obstructive Sleep Apnea Syndrome Gianni Solorzano MD: [address] [facility], [facility] [address], [place] [address], Ph. 12/22/2020 Fatigue; Intermittent Palpitations Yuliana Faye RPA-C: [address] [facility], [facility] [address], [place] [address], Ph. Social History Tobacco Smoking Status Light Tobacco Smoker (1/4 pack per da y) Notes: 2 cigs Vaccine List None recorded. Plan of Care Patient Instructions As we discussed, you EKG was normal and we will wait on your lab results and see you back in 1-2 weeks for recheck and to go over labs. If your labs are normal we may refer you to a slot key person for your palpitations. Reminders Provider Appointments None recorded. Lab None recorded. Referral None recorded. Procedures None recorded. Surgeries None recorded. Imaging None recorded. Vitals 09/06/2021 01:20PM ESTABLISHED [id number] Height Weight BMI Blood Pressure 59.5 in 141 lbs 8 oz 28.1 kg/m2 111/72 mm[Hg] 07/10/2021 01:20PM ESTABLISHED [id number] Height Weight BMI Blood Pressure 59.5 in 139 lbs 6 oz 27.7 kg/m2 118/84 mm[Hg] 04/25/2021 11:00AM ED FOLLOW-UP Height Weight BMI 59.5 in 130 lbs 16 oz 26 kg/m2 03/28/2021 09:40AM ESTABLISHED [id number] Height Weight BMI Blood Pressure 59.5 in 134 lbs 26.6 kg/m2 114/79 mm[Hg] 01/31/2021 03:20PM ESTABLISHED [id number] Height Weight BMI Blood Pressure 59.5 in 134 lbs 12.8 oz 26.8 kg/m2 127/77 mm[H g] 01/10/2021 10:20AM [facility] 20 Height 59.5 in 12/22/2020 10:10AM ESTABLISHED [id number] Height Weight BMI Blood Pressure 59.5 in 134 lbs 9.6 oz 26.7 kg/m2 117/78 mm[Hg ] 05/03/2020 Height Weight BMI Blood Pressure 59.5 in 124 lbs 6.08 oz 24.79 kg/m2 110/65 mm[H g]
--- OUTSIDE RECORDS SUMMARY | 2021-09-23 08:54 | CCD | Continuity of Care Document ---
Author Author Zakia VIVAS [place] Organization Unknown Address [address] [place] [address] [place] [address] Phone [phone] Care Team Providers Care Applications Engineer Manufacturing Name Role Phone Gianni Solorzano MD AUT [phone] Problems Description No Information Available Social History [...] H/L Range Note CBC With Differential 09/18/[address] [address] [phone] White Blood Count 7.6 10 Normal 4.0-10.0 [...] 36.0-66.0 Lymph % 36.5 % Normal 24.0-44.0 [place] % 7.3 % Normal 2.0-8.0 Eos % 0.4 % Normal 0.0-3.0 Baso % 0.5 % Normal 0.0-1.0 Immature Granulocyte % 0.1 % Normal 0-3.0 Nucleated Red Blood Cell % 0.0 % Normal 0-0 Neutrophils # 4.2 10 Normal 1.5-8.5 Lymph # 2.8 10 Normal 1.5-5.0 [place] # 0.6 10 Normal 0.0-0.8 Eos # 0.0 10 Normal 0.0-0.5 Baso # 0.0 10 Normal 0.0-0.2 Comprehensive Metabolic Profil 09/18/[address] [address] [phone] Glucose, Fasting 100 mg/dL Normal 70-100 Blood [...] 1.0 Low 1.2-2.2 Laboratory test finding 09/18/[address] [address] [phone] H Pylori Serum Quant Igm <pending> Erythrocyte Sedimentation Rate 20 mm/hr Normal 0-20 Lipase 46 U/L Low 73-393 C Reactive Protein Quantitativ 0.41 mg/dL High 0.00-0.30 Gastrointestinal (GI) Panel 09/18/[address] [address] [phone] Gastrointestinal (GI) Panel This [facility] <SEE NOTE > 2 Laboratory test finding 09/17/[address] [address] [phone] Urine Culture <pending> CBC With Differential 07/12/[address] [address] [phone] White Blood Count 9.0 10 Normal 4.0-10.0 [...] 36.0-66.0 Lymph % 19.2 % Low 24.0-44.0 [place] % 5.7 % Normal 2.0-8.0 Eos % 0.1 % Normal 0.0-3.0 Baso % 0.3 % Normal 0.0-1.0 Immature Granulocyte % 0.6 % Normal 0-3.0 Nucleated Red Blood Cell % 0.0 % Normal 0-0 Neutrophils # 6.6 10 Normal 1.5-8.5 Lymph # 1.7 10 Normal 1.5-5.0 [place] # 0.5 10 Normal 0.0-0.8 Eos # 0.0 10 Normal 0.0-0.5 Baso # 0.0 10 Normal 0.0-0.2 Comprehensive Metabolic Profil 07/12/[address] [address] [phone] Glucose, Fasting 99 mg/dL Normal 70-100 Blood Urea Nitrogen 12 mg/dL Normal 7-18 Creatinine For GFR 0.87 mg/dL Normal 0.55-1.30 Glomerular Filtration Rate > 60.0 Normal >60 3 Sodium Level 138 mEq/L Normal 136-145 Potassium [...] Low 1.2-2.2 Laboratory test finding 07/12/[address] [phone] Lipase 49 U/L Low 73-393 Laboratory test finding 07/12/[address] 1689474 [phone] Urine Culture FULL REPORT IN L <SEE NOTE> Normal 4, 5 Laboratory test finding 06/19/[address] 3823447 [phone] Urine Culture FULL REPORT IN L <SEE NOTE> Normal 6 1 Units are mL/min/1.73 m2 Chronic Kidney Disease Staging per NKF: Stage I & II GFR >=60 Normal to Mildly Decreased Stage III GFR 30-59 Moderately Decreased Stage IV GFR 15-29 Severely Decreased Stage V GFR <15 Very Little GFR Left ESRD GFR <15 on CONFERENCE ASSISTANT 2 This Gastrointestinal PCR Pa soila detects [...] NEGATIVE by MULTIPLEXED NUCLEIC ACID PCR 3 Units are mL/min/1.73 m2 Chronic Kidney Disease Staging per NKF: Stage I & II GFR >=60 Normal to Mildly Decreased Stage III GFR 30-59 Moderately Decreased Stage IV GFR 15-29 Severely Decreased Stage V GFR <15 Very Little GFR Left ESRD GFR <15 on CONFERENCE ASSISTANT 4 Rx Loperimide/Ondansetron 5 FULL REPORT IN LAB NOTES (eC W and [facility]). SPECIMEN APPEARS CONTAMINATED 6 FULL REPORT IN LAB NOTES (eC W and [facility]). NO GROWTH CLINICAL SIGNIFICANCE 2 OR MORE ORGANISMS Procedures Date Code Description Status 09/17/2021 95746 Office/Outpatient Established Mo d MDM 30-39 Min Completed 08/11/2021 71771 Office/Outpatient Established Lo w MDM 20-29 Min Completed 07/12/2021 17101 Office/Outpatient Established Lo w MDM 20-29 Min Completed 07/12/2021 88673 Office/Outpatient New Low MDM 30 -44 Minutes Completed 06/19/2021 62298 Office/Outpatient Established Lo w MDM 20-29 Min [...] R11.2 Nausea with vomiting, unspecifie d Jayde Christiano Vivas, PA 09/17/2021 R19.7 Diarrhea, unspecified Jayde Christiano Vivas, PA 09/17/2021 R10.30 Lower abdominal pain, unspecifie d Jayde Vivas, PA 08/11/2021 J01.10 Acute frontal sinusitis, unspeci fied Jamaal Brady, KO 08/11/2021 Z72.0 Tobacco use Jamaal cervantes, KO 07/12/2021 R10.9 Unspecified abdominal pain aJm Huynh, P.A. 07/12/2021 A08.4 Viral intestinal infection, [...]
--- OUTSIDE RECORDS SUMMARY | 2021-09-23 08:54 | CCD | Continuity of Care Document ---
Author Author Zakia PARKER Organization Unknown Address [address] [place] [address] [place] [address] Phone [phone] Care Team Providers Care Reject Opener Name Role Phone Gianni Solorzano MD [facility] [phone] Problems Description No Information Available Social History [...] H/L Range Note CBC With Differential 07/12/[address] [phone] White Blood Count 9.0 10 Normal 4.0-10.0 [...] 36.0-66.0 Lymph % 19.2 % Low 24.0-44.0 [place] % 5.7 % Normal 2.0-8.0 Eos % 0.1 % Normal 0.0-3.0 Baso % 0.3 % Normal 0.0-1.0 Immature Granulocyte % 0.6 % Normal 0-3.0 Nucleated Red Blood Cell % 0.0 % Normal 0-0 Neutrophils # 6.6 10 Normal 1.5-8.5 Lymph # 1.7 10 Normal 1.5-5.0 [place] # 0.5 10 Normal 0.0-0.8 Eos # 0.0 10 Normal 0.0-0.5 Baso # 0.0 10 Normal 0.0-0.2 Comprehensive Metabolic Profil 07/12/[address] [address] [phone] Glucose, Fasting 99 mg/dL Normal 70-100 Blood [...] 1.1 Low 1.2-2.2 Laboratory test finding 07/12/2021 [facility] [address] [place] [address] [phone] Lipase 49 U/L Low 73-393 Laboratory test finding 07/12/2021 [facility] [address] [place] [phone] Urine Culture FULL REPORT IN L <SEE NOTE> Normal 2, 3 Laboratory test finding 06/19/2021 [facility] [address] [place], [place] 0698537 [phone] Urine Culture FULL REPORT IN L <SEE NOTE> Normal 4 Group A Stretp Culture 03/01/[address] [address] [phone] Group A Strep Culture FULL REPORT IN L <SEE NOTE> Nor mal 5 1 Units are mL/min/1.73 m2 Chronic Kidney Disease Staging per NKF: Stage I & II GFR >=60 Normal to Mildly Decreased Stage III GFR 30-59 Moderately Decreased Stage IV GFR 15-29 Severely Decreased Stage V GFR <15 Very Little GFR Left ESRD GFR <15 on CLINIC SUPERVISOR 2 Rx Loperimide/Ondansetron 3 FULL REPORT IN LAB NOTES (eC W and [facility]). SPECIMEN APPEARS CONTAMINATED 4 FULL REPORT IN LAB NOTES (eC W and [facility]). NO GROWTH CLINICAL SIGNIFICANCE 2 OR MORE ORGANISMS 5 FULL REPORT IN LAB NOTES (eC W and [facility]). NEGATIVE FOR STREP PYOGENES (GROUP A) Procedures Date Code Description Status 08/11/2021 97503 Office/Outpatient Established Lo w MDM 20-29 Min Completed 07/12/2021 92328 Office/Outpatient Established Lo w MDM 20-29 Min Completed 07/12/2021 90505 Office/Outpatient New Low MDM 30 -44 Minutes Completed 06/19/2021 76742 Office/Outpatient Established Lo w MDM 20-29 Min Completed 03/14/2021 28538 Office/Outpatient Established Lo w MDM 20-29 Min Completed 03/03/2021 21456 Office/Outpatient Established Lo w MDM 20-29 Min Completed 03/01/2021 74646 Office/Outpatient New Low MDM 30 -44 Minutes [...] NP 06/19/2021 N76.0 Acute vaginitis Norah calderon CARDIOTHORACIC ICU RN 06/19/2021 B35.2 Tinea manuum Norah calderon CARDIOTHORACIC ICU RN 03/14/2021 R11.0 Nausea KO Ruiz 03/14/2021 J06.9 [...] KO Krishnan Plan of Treatment 08/11/2021 - OK Gay* J01.10 Acute frontal sinusitis, unspecified * New Medication:* Amoxicillin 875 mg - take one tablet every 12 hrs.x 10 days. * Comments:* rest/fluids/tylenol/time. * Z72.0 Tobacco use Functional Status Description No Information Available Mental Status Description No Information Available Referrals Description No Information Available
--- OUTSIDE RECORDS SUMMARY | 2021-09-23 08:54 | CCD | Continuity of Care Document ---
Author Author Zakia VIVAS [place] Organization Unknown Address [address] [place] [address] [place] [address] Phone [phone] Care Team Providers Care Chemical Engineering Professor Name Role Phone Gianni Solorzano MD AUT [phone] Problems Description No Information Available Social History [...] H/L Range Note CBC With Differential 09/18/[address] [address] [phone] White Blood Count 7.6 10 Normal 4.0-10.0 [...] 36.0-66.0 Lymph % 36.5 % Normal 24.0-44.0 Hayes % 7.3 % Normal 2.0-8.0 Eos % 0.4 % Normal 0.0-3.0 Baso % 0.5 % Normal 0.0-1.0 Immature Granulocyte % 0.1 % Normal 0-3.0 Nucleated Red Blood Cell % 0.0 % Normal 0-0 Neutrophils # 4.2 10 Normal 1.5-8.5 Lymph # 2.8 10 Normal 1.5-5.0 Hayes # 0.6 10 Normal 0.0-0.8 Eos # 0.0 10 Normal 0.0-0.5 Baso # 0.0 10 Normal 0.0-0.2 Comprehensive Metabolic Profil 09/18/[address] [address] [phone] Glucose, Fasting 100 mg/dL Normal 70-100 Blood [...] 1.0 Low 1.2-2.2 Laboratory test finding 09/18/[address] [address] [phone] Erythrocyte Sedimentation Rate 20 mm/hr Normal 0 -20 Lipase 46 U/L Low 73-393 C Reactive Protein Quantitativ 0.41 mg/dL High 0.00-0.30 Gastrointestinal (GI) Panel 09/18/2021 [id number] [place] [address] [phone] Gastrointestinal (GI) Panel This Gastrointes <SEE NOTE > 2 Laboratory test finding 09/17/[address] [address] [phone] Urine Culture FULL REPORT IN L <SEE NOTE> Normal 3 CBC With Differential 07/12/[address] [address] [phone] White Blood Count 9.0 10 Normal 4.0-10.0 [...] 36.0-66.0 Lymph % 19.2 % Low 24.0-44.0 Hayes % 5.7 % Normal 2.0-8.0 Eos % 0.1 % Normal 0.0-3.0 Baso % 0.3 % Normal 0.0-1.0 Immature Granulocyte % 0.6 % Normal 0-3.0 Nucleated Red Blood Cell % 0.0 % Normal 0-0 Neutrophils # 6.6 10 Normal 1.5-8.5 Lymph # 1.7 10 Normal 1.5-5.0 Hayes # 0.5 10 Normal 0.0-0.8 Eos # 0.0 10 Normal 0.0-0.5 Baso # 0.0 10 Normal 0.0-0.2 Comprehensive Metabolic Profil 07/12/[address] [address] [phone] Glucose, Fasting 99 mg/dL Normal 70-100 Blood [...] 1.1 Low 1.2-2.2 Laboratory test finding 07/12/[address] 3547383 [phone] Lipase 49 U/L Low 73-393 Laboratory test finding 07/12/[address] 5059688 [phone] Urine Culture FULL REPORT IN L <SEE NOTE> Normal 5, 6 Laboratory test finding 06/19/[address] 2823109 [phone] Urine Culture FULL REPORT IN L <SEE NOTE> Normal 7 1 Units are mL/min/1.73 m2 Chronic Kidney Disease Staging per NKF: Stage I & II GFR >=60 Normal to Mildly Decreased Stage III GFR 30-59 Moderately Decreased Stage IV GFR 15-29 Severely Decreased Stage V GFR <15 Very Little GFR Left ESRD GFR <15 on FULL SERVICE VENDING DRIVER 2 This Gastrointestinal PCR Pa soila detects [...] Little GFR Left ESRD GFR <15 on FULL SERVICE VENDING DRIVER 5 Rx Loperimide/Ondansetron 6 FULL REPORT IN LAB NOTES (eC W and [facility]). SPECIMEN APPEARS CONTAMINATED 7 FULL REPORT IN LAB NOTES (eC W and [facility]). NO GROWTH CLINICAL SIGNIFICANCE 2 OR MORE ORGANISMS Procedures Date Code Description Status 09/17/2021 30555 Office/Outpatient Established Mo d MDM 30-39 Min Completed 08/11/2021 81093 Office/Outpatient Established Lo w MDM 20-29 Min Completed 07/12/2021 52772 Office/Outpatient Established Lo w MDM 20-29 Min Completed 07/12/2021 74948 Office/Outpatient New Low MDM 30 -44 Minutes Completed 06/19/2021 69987 Office/Outpatient Established Lo w MDM 20-29 Min [...]
--- OUTSIDE RECORDS SUMMARY | 2021-09-23 08:54 | CCD | Continuity of Care Document ---
Author Author Zakia MELISSA [place] Organization Unknown Address [address] [place] [address] [place] [address] Phone [phone] Care Team Providers Care Tobacco Packing Machine Operator Name Role Phone Gianni Solorzano MD AUTM [phone] Problems Description No Information Available Social History [...] Date Facility Test Result H/L Range Note Laboratory test finding 09/17/[address] [address] [phone] Urine Culture <pending> CBC With Differential 07/12/[address] [address] [phone] White Blood Count 9.0 10 Normal 4.0-10.0 [...] 36.0-66.0 Lymph % 19.2 % Low 24.0-44.0 [place]ie % 5.7 % Normal 2.0-8.0 Eos % 0.1 % Normal 0.0-3.0 Baso % 0.3 % Normal 0.0-1.0 Immature Granulocyte % 0.6 % Normal 0-3.0 Nucleated Red Blood Cell % 0.0 % Normal 0-0 Neutrophils # 6.6 10 Normal 1.5-8.5 Lymph # 1.7 10 Normal 1.5-5.0 Bowie # 0.5 10 Normal 0.0-0.8 Eos # 0.0 10 Normal 0.0-0.5 Baso # 0.0 10 Normal 0.0-0.2 Comprehensive Metabolic Profil 07/12/[address] [address] [phone] Glucose, Fasting 99 mg/dL Normal 70-100 Blood [...] Low 1.2-2.2 Laboratory test finding 07/12/[address] [address] [phone] Lipase 49 U/L Low 73-393 Laboratory test finding 07/12/2021 [facility] [address] [place], [place] 6[address]94 [phone] Urine Culture FULL REPORT IN L <SEE NOTE> Normal 2, 3 Laboratory test finding 06/19/2021 [facility] [address] [place], [place] 1264813 [phone] Urine Culture FULL REPORT IN L <SEE NOTE> Normal 4 1 Units are mL/min/1.73 m2 Chronic Kidney Disease Staging per NKF: Stage I & II GFR >=60 Normal to Mildly Decreased Stage III GFR 30-59 Moderately Decreased Stage IV GFR 15-29 Severely Decreased Stage V GFR <15 Very Little GFR Left ESRD GFR <15 on HOME HEALTH AID 2 Rx Loperimide/Ondansetron 3 FULL REPORT IN LAB NOTES (eC W and [facility]). SPECIMEN APPEARS CONTAMINATED 4 FULL REPORT IN LAB NOTES (eC W and [facility]). NO GROWTH CLINICAL SIGNIFICANCE 2 OR MORE ORGANISMS Procedures Date Code Description Status 09/17/2021 59820 Office/Outpatient Established Mo d MDM 30-39 Min Completed 08/11/2021 77308 Office/Outpatient Established Lo w MDM 20-29 Min Completed 07/12/2021 47050 Office/Outpatient Established Lo w MDM 20-29 Min Completed 07/12/2021 03656 Office/Outpatient New Low MDM 30 -44 Minutes Completed 06/19/2021 54810 Office/Outpatient Established Lo w MDM 20-29 Min [...] vaginitis Norah calderon NP 06/19/2021 B35.2 Tinea skyeum Norah calderon NP Plan of Treatment 09/17/2021 - KO Krishnan* R11.2 Nausea with vomiting, unspecified* New Medication:* Promethazine HCL 12.5 mg - 1 tab by mouth q4-6 hours as needed for nausea and vomiting * New Labs:* CBC With Differential, Ordered: 09/17/21 [...]
--- OUTSIDE RECORDS SUMMARY | 2021-09-23 08:54 | CCD | Continuity of Care Document ---
Author Author Zakia ROSENBERG Organization Unknown Address [address] [place] [address] Phone [phone] Care Team Providers Care Day Care Worker Name Role Phone Gianni Solorzano M.D. AUTM [phone] AUTM Unavailable Problems Active Problems Provider Date [...] lb BMI (Body Mass Index) 28.4 kg/m2 [place] Body Weight 100 lb Weight 62.767 kg BSA (Body Surface Area) 1.57 m2 07/11/2021 9:47am BP Systolic 112 mmHg BP Diastolic 68 mmHg Heart Rate 97 /min O2 % BldC Oximetry 99 % Height 58.5 inches 4'10.50" Weight 138.12 lb BMI (Body Mass Index) 28.4 kg/m2 [place] Body Weight 100 lb Neck Circumference in inches 15 [place] Score 23 Weight 62.654 kg BSA (Body Surface Area) 1.57 m2 Results Description No Information Available Procedures Date Code Description Status 08/22/2021 03059 Office/Outpatient Established Lo w MDM 20-29 Min Completed 07/11/2021 93490 Office/Outpatient New Low MDM 30 -44 Minutes Completed Medical Devices Description No Information Available Encounters Type Date Location Provider Dx Diagnosis Office Visit 08/22/2021 4:00p [facility] Pulmonary/Thoracic KO Seth G47.31 Primary central sleep [...] Treatment Future Appointment(s):* 09/10/2021 7:45 pm - [facility] Sleep Lab at [facility] 08/22/2021 - KO Seth* G47.31 Primary central [...] Appt Date Deid[facility]N.P. [facility] [address] [place], [place] [address] [phone] Deidra Dolan F.N.P. [place] [facility] [address] [place], [place] [address] [phone]
--- OUTSIDE RECORDS SUMMARY | 2021-09-23 08:55 | CCD | Continuity of Care Document ---
Author Author Zakia BOOTH M.D. Organization Unknown Address [address] [place] [address] Phone [phone] Care Team Providers Care Band Saw Operator Name Role Phone Gainni Solorzano M.D. AUTM [phone] Problems Active Problems Provider Date Migraine John Booth M.D. Onset: 06/22/2021 Social History Type Date Description Comments Sex Unknown Tobacco Use Start: Unknown Light tobacco smoker (10 or fewe r cigarettes/day) Allergies, Adverse Reactions, Alerts Description No Known Drug Allergies Medications Active Medications SIG Qnty Indications Ordering Provide r Date Topiramate 25mg Tablets take 1 tab qhs x7day, then 2 tabs qhs x7days, then 3 tabs qhs x7days, then 100mg tab qhs. 42tarosalio Booth M.D. 06/22/2021 Topiramate 100mg Tablets take one tablet by mouth at bedtime 30tabs John Booth M.D. 2020 Methadone HCL 10mg/5ML Solution pt takes 160 mg once a day through [facility] Unknown Immunizations Description No Information Available Vital Signs Date Vital Result Comment 06/22/2021 8:58am Respiratory Rate 12 /min Height 58 inches 4'10" Weight 130.00 lb BMI (Body Mass Index) 27.2 kg/m2 [place] Body Weight 100 lb Results Description No Information Available Procedures Date Code Description Status 06/22/2021 87977 Office/Outpatient New Moderate M DM 45-59 Minutes Completed Medical Devices Description No Information Available Encounters Type Date Location Provider Dx Diagnosis Office Visit 06/22/2021 9:[place] G43.719 Chronic migraine w/o aura, intractable, w/o stat migr R42 Dizziness and giddiness R11.0 Nausea Assessments Date Code Description Provider 06/22/2021 G43.719 Chronic migraine wit hout aura, intractable, without status migrainosus John Booth M.D. 06/22/2021 R42 Dizziness and giddiness John sinha M.D. 06/22/2021 R11.0 Nausea John Booth M.D. Plan of Treatment Future Appointment(s):* 09/27/2021 2:30 pm - John Booth M.D. at Main office - [place] Functional Status Description No Information Available Mental Status Description No Information Available Referrals Description No Information Available
--- OUTSIDE RECORDS SUMMARY | 2021-09-23 08:55 | CCD | Continuity of Care Document ---
Author Author Zakia SMITH Organization Unknown Address [address] [place] [address] [place] [address] Phone [phone] Care Team Providers Care Manager Marketing Sales Name Role Phone Gianni Solorzano MD AUTM [phone] Problems Description No Information Available Social History [...] Patient Has Never Vaped Smoking Status Reviewed: 07/12/21 The Patient Has Never Vaped Allergies, Adverse Reactions, Alerts Description No Known Drug Allergies Medications Active Medications SIG Qnty Indications Ordering Provide r Date Ondansetron 4mg Tablets Dispers 1 tab by mouth dissolved on tongue q8 hours as needed nausea 10tabs A08.4 Johnson Bravo JR., M.D. 07/12/2021 Loperamide HCL 2mg Tablets 2 tablets by mouth x1, then one tablet by mouth after each loose stool. 20tabs A 08.4 Johnson Bravo JR., M.D. 07/12/2021 Methadone HCL Unknown Zyprexa Unknown Wellbutrin SR Unknown Topamax 25mg Tablets Unknown History Medications Miconazole 7 100mg Suppository 1 applicatorful 2% [...] Available Vital Signs Date Vital Result Comment 07/12/2021 9:22am BP Systolic 123 mmHg BP Diastolic 76 mmHg Heart Rate 79 /min Respiratory Rate 12 /min O2 % BldC Oximetry 97 % Body Temperature 98.7 F Weight 138.00 lb Height 68 inches 5'8" BMI (Body Mass Index) 21.0 kg/m2 Pain Level 7 06/19/2021 3:58pm BP Systolic 118 mmHg BP Diastolic 80 mmHg Heart Rate 98 /min Respiratory Rate 14 /min O2 % BldC Oximetry 97 % Body Temperature 98.2 F Weight 130.00 lb Height 68 inches 5'8" BMI (Body Mass Index) 19.8 kg/m2 Pain Level 0 Results Test Acquired Date Facility Test Result H/L Range Note CBC With Differential 07/12/2021 [facility] [address] [place], [place] [id number] [phone] White Blood Count 9.0 10 Normal 4.0-10.0 [...] 36.0-66.0 Lymph % 19.2 % Low 24.0-44.0 [place] % 5.7 % Normal 2.0-8.0 Eos % 0.1 % Normal 0.0-3.0 Baso % 0.3 % Normal 0.0-1.0 Immature Granulocyte % 0.6 % Normal 0-3.0 Nucleated Red Blood Cell % 0.0 % Normal 0-0 Neutrophils # 6.6 10 Normal 1.5-8.5 Lymph # 1.7 10 Normal 1.5-5.0 [place] # 0.5 10 Normal 0.0-0.8 Eos # 0.0 10 Normal 0.0-0.5 Baso # 0.0 10 Normal 0.0-0.2 Comprehensive Metabolic Profil 07/12/[address] [address] [phone] Glucose, Fasting 99 mg/dL Normal 70-100 Blood [...] 1.1 Low 1.2-2.2 Laboratory test finding 07/12/[address] [address] [phone] Lipase 49 U/L Low 73-393 Laboratory test finding 07/12/2021 [facility] [address] [place] [address] [phone] Urine Culture FULL REPORT IN L <SEE NOTE> Normal 2, 3 Laboratory test finding 06/19/[address] [address] [phone] Urine Culture FULL REPORT IN L <SEE NOTE> Normal 4 Group A Stretp Culture 03/01/[address] [address] [phone] Group A Strep Culture FULL REPORT IN L <SEE NOTE> Nor mal 5 1 Units are mL/min/1.73 m2 Chronic Kidney Disease Staging per NKF: Stage I & II GFR >=60 Normal to Mildly Decreased Stage III GFR 30-59 Moderately Decreased Stage IV GFR 15-29 Severely Decreased Stage V GFR <15 Very Little GFR Left ESRD GFR <15 on FISHING VESSEL OPERATOR 2 Rx Loperimide/Ondansetron 3 FULL REPORT IN LAB NOTES ([facility]). SPECIMEN APPEARS CONTAMINATED 4 FULL REPORT IN LAB NOTES ([facility]). NO GROWTH CLINICAL SIGNIFICANCE 2 OR MORE ORGANISMS 5 FULL REPORT IN LAB NOTES ([facility]). NEGATIVE FOR STREP PYOGENES (GROUP A) Procedures Date Code Description Status 07/12/2021 81119 Office/Outpatient Established Lo w MDM 20-29 Min Completed 07/12/2021 88859 Office/Outpatient New Low MDM 30 -44 Minutes Completed 06/19/2021 15559 Office/Outpatient Established Lo w MDM 20-29 Min Completed 03/14/2021 63111 Office/Outpatient Established Lo w MDM 20-29 Min Completed 03/03/2021 93998 Office/Outpatient Established Lo w MDM 20-29 Min Completed 03/01/2021 49747 Office/Outpatient New Low MDM 30 -44 Minutes Completed Medical Devices Description No Information Available Encounters Type Date Location Provider Dx Diagnosis Office Visit 07/12/2021 9:10a Main Office [place] R1 0.9 Unspecified abdominal pain A08.4 Viral intestinal infection, unspecified Z20.828 Contact w and exposure to ot h viral communicable diseases Office Visit 06/19/2021 3:30p Main Office Norah Overton, ON LINE CSR R35. 0 Frequency of micturition N76.0 Acute [...] communicable diseases Assessments Date Code Description Provider 07/12/2021 R10.9 Unspecified abdominal pain Jam Smith, P.A. 07/12/2021 A08.4 Viral intestinal infection, unsp ecified Izaiah Smith, P.A. 07/12/2021 Z20.828 Contact with and (reese spected) exposure to other viral communicable diseases Izaiah Smith, P.A. 06/19/2021 R35.0 Frequency of micturition Norah Guillenva, ON LINE CSR 06/19/2021 N76.0 Acute vaginitis Norah calderon, ON LINE CSR 06/19/2021 B35.2 Tinea manuum Norah Jhondavid calderon, ON LINE CSR 03/14/2021 R11.0 Nausea KO Ruiz 03/14/2021 J06.9 [...] communicable diseases KO Krishnan Plan of Treatment No Information Available Functional Status Description No Information Available Mental Status Description No Information Available Referrals Description No Information Available
--- OUTSIDE RECORDS SUMMARY | 2021-09-23 08:55 | CCD ---
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 Role Phone Tabby Lew Unavailable Unavailable Allergies Code Code System Name Reaction Severity Status Onset NKDA Medications Name Status Start Date Stop Date amoxicillin 500 mg capsule TAKE ONE CAPSULE BY MOUTH EVERY 8 HOURS UNTIL GONE Completed 12/22/2020 amoxicillin 875 mg tablet Completed 2020 amoxicillin 875 mg-potassium clavulanate 125 mg tablet TAKE ONE TABLET BY MOUTH TWICE DAILY Completed aripiprazole 2 mg tablet TAKE ONE TABLET BY MOUTH ONCE DAILY Completed aripiprazole 5 mg tablet TAKE 1/2 TABLET BY MOUTH EVERY MORNING Active Not available Banophen 25 mg capsule TAKE THREE CAPSULES BY MOUTH AT BEDTIME Completed 12/22/2020 Banophen 50 mg capsule TAKE ONE CAPSULE BY MOUTH AT BEDTIME Completed benzonatate 200 mg capsule TAKE ONE CAPSULE BY MOUTH THREE TIMES DAILY FOR 7 DAYS Active Not available bupropion HCl XL 150 mg 24 hr tablet, extended release Active Not available bupropion HCl XL 300 [...] 2 TIMES PER DAY Active Not available ibuprofen 800 mg tablet TAKE ONE TABLET BY MOUTH EVERY 8 HOURS NEEDED FOR PAIN LEVEL 6-10 Completed 12/22/2020 methadone (bulk) 160 ea day Active Not available methylprednisolone 4 mg tablets in a dos e pack TAKE DIRECTED PER PACKAGE INSTRUCTIONS Active Not available metronidazole 500 mg tablet TAKE ONE TABLET BY MOUTH TWICE DAILY FOR SEVEN DAYS Completed 12/22/2020 miconazole nitrate 100 mg vaginal suppos itory insert ONE APPLICATORFUL into THE VAGINA AT BEDTIME FOR 7 DAYS Active Not available NightTime Sleep Aid (diphenhydramine) 25 mg tablet TAKE ONE TABLET BY MOUTH AT BEDTIME Completed olanzapine 15 mg tablet Active Not avai lable olanzapine 5 mg tablet TAKE ONE TABLET BY MOUTH AT BEDTIME Active Not available omeprazole 20 mg capsule,delayed release TAKE ONE CAPSULE BY MOUTH ONCE DAILY Completed ondansetron 4 mg disintegrating tablet TAKE ONE TABLET BY MOUTH EVERY 6 TO 8 HOURS NEEDED FOR NAUSEA OR vomiting Active Not available ondansetron HCl 4 mg tablet TAKE ONE TABLET BY MOUTH EVERY 6 HOURS NEEDED FOR NAUSEA FOR TWO DAYS Active Not available senna 8.6 mg tablet TAKE ONE TABLET BY MOUTH TWICE DAILY Active No t available terbinafine HCl 250 mg tablet TAKE ONE TABLET BY MOUTH ONCE DAILY Active Not available topiramate 25 mg tablet TAKE 1 TABLET BY MOUTH AT BEDTIME FOR 7 DAYS, 2 AT BEDTIME FOR 7 DAYS, 3 AT BEDTIME FOR 7 DAYS THEN take 100mg AT BEDTIME Active Not available Wellbutrin SR 100 mg tablet, 12 hr susta ined-release Take 1 tablet every day by oral route. Active Not available Problems Name Status Onset Date Source Generalized Anxiety Disorder Active 01/10/2016 His tory Dental Caries on Smooth Surface Penetrating into Pulp Active 11/26/2018 History Bipolar Disorder Active 05/03/2020 History Opioid Dependence in Remission Active 05/03/2020 H istory Body Measurement Finding Active 05/03/[address] Concept Active 05/03/2020 History Clinical Finding Active 05/03/2020 History Obstructive Sleep Apnea Syndrome Active 01/10/2021 Fatigue Active 01/10/2021 Tinea Capitis Unknown 01/31/2021 Migraine Active 03/28/2021 Eczema of Scalp Active 03/28/2021 Tobacco User Active 04/25/2021 Amenorrhea Active 07/10/2021 Procedures Date Name Performed by 06/05/2020 Delivery Information not avai lable 12/22/2020 Electrocardiogram [facility] [address] [place] [address] (Work [address]) Notes: No known surgical history Results Lab Results Date Name Specimen Result Interpretation Description Value Range Status Address 05/11/2021 Cbc Normal White Blood Count 8.6 10 4.0-10. 0 10 [facility]: 0 [facility] Normal Red Blood Count 4.27 10 4.00-5.40 10 [facility]: 830 [facility] Normal Hemoglobin 13.2 g/dL 12.0-15.5 g/dL [facility]: [address] [place] [address] Normal Hematocrit 40.5 % 36.0-47.0 % [facility]: [address] [place] [address] Normal Mean Corpuscular Volume 94.8 fL 80.0 -96.0 fL [facility]: 0 [facility] Normal Mean Corpuscular Hemoglobin 30.9 pg 27.0-33.0 pg [facility]: [address] [place] [address] Normal Mean Corpuscular HGB Conc 32.6 g/dL 32.0-36.5 g/dL [facility]: [address] [place] [address] Normal Red Cell Distribution Width 12.8 % 1 1.5-14.5 % [facility]: [address] [place] [address] Normal Platelet Count, Automated 386 10 150 -450 10 [facility]: 0 [facility] Normal Nucleated Red Blood Cell % 0.0 % 0- 0 % [facility]: 0 [facility] 05/11/2021 CMP, Serum or Plasma Normal Glucose, Fastin g 81 mg/dL 70-100 mg/dL [facility]: 83 0 [facility] Normal Blood Urea Nitrogen 17 mg/dL 7-18 mg /dL [facility]: 0 [facility] Normal Creatinine for GFR 0.72 mg/dL 0.55-1 .30 mg/dL [facility]: 0 [facility] Normal Glomerular Filtration Rate > 60.0 >6 0 [facility]: 0 [facility] Normal Sodium Level 136 mEq/L 136-145 mEq/L [facility]: [address] [place] [address] Normal Potassium Serum 4.5 mEq/L 3.5-5.1 mE q/L [facility]: 0 [facility] Normal Chloride Level 102 mEq/L 98-107 mEq/ L [facility]: 0 [facility] Normal Carbon Dioxide Level 32 mEq/L 21-32 mEq/L [facility]: [address] [place] [address] Low Anion Gap 2 mEq/L 8-16 mEq/L [facility]: [address] [place] [address] Normal Calcium Level 9.5 mg/dL 8.5-10.1 mg/ dL [facility]: [address] [place] [address] Normal AST/SGOT 13 U/L 7-37 U/L [facility]: 0 [facility] Normal ALT/SGPT 22 U/L 12-78 U/L [facility]: [address] [place] [address] Normal Alkaline Phosphatase 85 U/L 45-117 U /L [facility]: 0 [facility] Normal Bilirubin,total 0.5 mg/dL 0.2-1.0 mg /dL [facility]: [address] [place] [address] Normal Total Protein 7.9 gm/dL 6.4-8.2 gm/d L [facility]: [address] [place] [address] Normal Albumin 4.0 gm/dL 3.2-5.2 gm/dL [facility]: [address] [place] [address] Low Albumin/globulin Ratio 1.0 1.2-2. 2 [facility]: [address] [place] [address] 05/11/2021 Hepatitis C Ab, Serum Normal Hepati tis C Virus Elza Index < 0.0 index <0.8 index [facility] nter: [address] [place] [address] 05/11/2021 HBsAg (Hepatitis B Surface Ag), Serum Normal Hepatitis B Surface Antigen negative negative [facility]: [address] [place] [address] 05/11/2021 Syphilis Normal Syphilis nonreactive nonreacti ve [facility]: [address] [place] [address] 05/11/2021 beta-HCG, Qualitative, Serum or Plasma Normal HCG, Serum Qualitative negative negative Final [facility]: [address] [place] [address] 05/11/2021 HIV 1+2 AB + HIV 1 P24 Ag, Qualitative Immunoassay, Serum Normal HIV 1&2 Screen Centaur negative negative [facility]: [address] [place] [address] 05/11/2021 CT + NG DNA, Qual, PCR, Unspecified Specimen No rmal Chlamydia DNA Amplification negative negative Final [facility] ical Center: [address] [place] [address] Normal GC DNA Amplification negative negati ve [facility]: [address] [place] [address] 05/11/2021 Hepatitis C RNA, QL, PCR, Unspecified Specimen Normal HCV RNA PHILIPPE Qualitative negative negative Final [facility]: [address] [place] [address] 04/12/2021 Awilda Strep a Normal Awilda Strep a negative ne gative [facility]: [address] [place] [address] 04/12/2021 CBC W/ Auto Diff Normal White Blood Count 8.7 10 4.0-10.0 10 [facility]: [address] [place] [address] Normal Red Blood Count 4.29 10 4.00-5.40 10 [facility]: [address] [place] [address] Normal Hemoglobin 13.2 g/dL 12.0-15.5 g/dL [facility]: [address] [place] [address] Normal Hematocrit 40.0 % 36.0-47.0 % [facility]: [address] [place] [address] Normal Mean Corpuscular Volume 93.2 fL 80.0 -96.0 fL [facility]: [address] [place] [address] Normal Mean Corpuscular Hemoglobin 30.8 pg 27.0-33.0 pg [facility]: [address] [place] [address] Normal Mean Corpuscular HGB Conc 33.0 g/dL 32.0-36.5 g/dL [facility]: [address] [place] [address] Normal Red Cell Distribution Width 12.7 % 1 1.5-14.5 % [facility]: [address] [facility] Normal Platelet Count, Automated 296 10 150 -450 10 [facility]: 830 [facility] Normal Neutrophils % 63.4 % 36.0-66.0 % [facility]: 8[address] [facility] Normal Lymph % 28.4 % 24.0-44.0 % Final [facility]: 830 [facility] Normal Shelby % 7.3 % 2.0-8.0 % Final [facility]: 830 [facility] Normal Eos % 0.2 % 0.0-3.0 % [facility]: 830 [facility] Normal Baso % 0.5 % 0.0-1.0 % [facility]: 830 [facility] Normal Immature Granulocyte % 0.2 % 0-3.0 % [facility]: 830 [facility] Normal Nucleated Red Blood Cell % 0.0 % 0- 0 % [facility]: 830 [facility] Normal Neutrophils # 5.5 10 1.5-8.5 10 Health system: 830 [facility] Normal Lymph # 2.5 10 1.5-5.0 10 [facility]: 8[address] [facility] Normal Shelby # 0.6 10 0.0-0.8 10 [facility]: 830 [facility] Normal Eos # 0.0 10 0.0-0.5 10 [facility]: 830 [facility] Normal Baso # 0.0 10 0.0-0.2 10 [facility]: 830 [facility] 04/12/2021 Hepatic Function Panel, Serum Normal AST/SG OT 11 U/L 7-37 U/L [facility]: 830 [facility] Normal ALT/SGPT 16 U/L 12-78 U/L [facility]: 8[address] [facility] Normal Alkaline Phosphatase 71 U/L 45-117 U /L [facility]: 8[address] [facility] Normal Bilirubin,total 0.9 mg/dL 0.2-1.0 mg /dL [facility]: [address] [facility] Normal Bilirubin,direct 0.2 mg/dL 0.0-0.2 m g/dL [facility]: [address] [facility] Normal Total Protein 8.0 gm/dL 6.4-8.2 gm/d L [facility]: [address] [facility] Normal Albumin 4.1 gm/dL 3.2-5.2 gm/dL Lisy l [facility]: 0 [facility] Low Albumin/globulin Ratio 1.1 1.2-2. 2 [facility]: [address] [facility] 04/12/2021 BMP, Serum or Plasma Normal Glucose, Fastin g 76 mg/dL 70-100 mg/dL [facility]: 83 0 [facility] Normal Blood Urea Nitrogen 11 mg/dL 7-18 mg /dL [facility]: 0 [facility] Normal Creatinine for GFR 0.79 mg/dL 0.55-1 .30 mg/dL [facility]: 0 [facility] Normal Glomerular Filtration Rate > 60.0 >6 0 [facility]: [address] [facility] Normal Sodium Level 138 mEq/L 136-145 mEq/L [facility]: 0 [facility] Normal Potassium Serum 4.1 mEq/L 3.5-5.1 mE q/L [facility]: [address] [facility] Normal Chloride Level 103 mEq/L 98-107 mEq/ L [facility]: 0 [facility] Normal Carbon Dioxide Level 30 mEq/L 21-32 mEq/L [facility]: 0 [facility] Low Anion Gap 5 mEq/L 8-16 mEq/L [facility]: 0 [facility] Normal Calcium Level 9.1 mg/dL 8.5-10.1 mg/ dL [facility]: [address] [facility] 04/12/2021 TSH, Serum or Plasma Normal Thyroid Stimulating Hormone 0.594 uIU/mL 0.358-3.740 uIU/mL [facility] nter: 8[address] [facility] 04/12/2021 T4, Free, Serum Normal Free T4 0.92 NG/dL 0.76-1.46 NG/dL [facility]: [address] [facility] 04/12/2021 Shelby Reflex Ebv Comprehensive Normal Shelby Reflex Ebv Comp negative negative [facility] nter: 0 [facility] 04/12/2021 beta-HCG, Qualitative, Serum or Plasma Normal HCG, Serum Qualitative negative negative [facility]: [address] [place] [address] 04/12/2021 Respiratory Virus Panel NASOPHARYNX No observ ation recorded. [facility]: 0 [facility] 04/12/2021 Lyme Disease Igg+igm Ab, Serum Normal Lyme Disease IgG/IgM Antibodie <0.91 isr 0.00-0.90 isr [facility]: [address] [facility] Normal Lyme Disease IgM Ab Quantitati <0.80 index 0.00-0.79 index [facility]: [address] [facility] 04/12/2021 Ebv Ab Comprehensive Normal Ebv Viral Capsi d Ag IgM <36.0 U/mL 0.0-35.9 U/mL [facility]: 83 0 [facility] High Ebv Viral Capsid Ag IgG >600.0 U/mL 0.0-17.9 U/mL [facility]: [address] [facility] High Ebv Ab to Nuclear Antigen 277.0 U/mL 0.0-17.9 U/mL [facility]: [address] [facility] Normal Ebv Interpretation . Rap[facility]: [address] [facility] 01/22/2021 Awilda Covid Antigen Normal Awilda Covid Anti gen negative negative [facility]: 83 0 [facility] 01/22/2021 Istat Chem8+ Panel Normal Istat HCT 41.0 % 38. 0-51.0 % [facility]: [address] [facility] Normal Istat Glucose 83 mg/dL 70-105 mg/dL [facility]: [address] [facility] Normal Istat Sodium 138 mEq/L 136-145 mEq/L [facility]: [address] [facility] Normal Istat Potassium 4.6 mEq/L 3.5-5.1 mE q/L [facility]: [address] [facility] Normal Istat Ca++ 4.9 mg/dL 4.5-5.3 mg/dL F [facility]: [address] [facility] Normal Istat Chloride 99 mEq/L 98-109 mEq/L [facility]: [address] [facility] High Istat CO2 31.0 mm/L 23.0-27.0 mm/L F [facility]: 8[address] [facility] Normal Istat BUN 9 mg/dL 8-26 mg/dL [facility]: [address] [facility] Normal Istat Creatinine 0.8 mg/dL 0.6-1.3 m g/dL [facility]: [address] [facility] 01/22/2021 Istat B-HCG Normal Istat B-HCG < 5.0 F [facility]: 8[address] [facility] 01/22/2021 CBC W/ Auto Diff Normal White Blood Count 6.9 10 4.0-10.0 10 [facility]: [address] [facility] Normal Red Blood Count 4.43 10 4.00-5.40 10 [facility]: [address] [facility] Normal Hemoglobin 13.3 g/dL 12.0-15.5 g/dL [facility]: [address] [facility] Normal Hematocrit 40.9 % 36.0-47.0 % [facility]: [address] [facility] Normal Mean Corpuscular Volume 92.3 fL 80.0 -96.0 fL [facility]: [address] [place] [address] Normal Mean Corpuscular Hemoglobin 30.0 pg 27.0-33.0 pg Final [facility]: [address] [place] [address] Normal Mean Corpuscular HGB Conc 32.5 g/dL 32.0-36.5 g/dL Final [facility]: 8[address] [facility] Normal Red Cell Distribution Width 12.6 % 1 1.5-14.5 % [facility]: [address] [place] [address] Normal Platelet Count, Automated 299 10 150 -450 10 [facility]: 0 [facility] Normal Neutrophils % 52.0 % 36.0-66.0 % [facility]: [address] [facility] Normal Lymph % 38.0 % 24.0-44.0 % Final [facility]: [address] [facility] Normal Shelby % 7.8 % 2.0-8.0 % [facility]: 0 [facility] Normal Eos % 1.5 % 0.0-3.0 % [facility]: 0 [facility] Normal Baso % 0.7 % 0.0-1.0 % [facility]: [address] [facility] Normal Immature Granulocyte % 0.0 % 0-3.0 % [facility]: 0 [facility] Normal Nucleated Red Blood Cell % 0.0 % 0- 0 % [facility]: [address] [facility] Normal Neutrophils # 3.6 10 1.5-8.5 10 Health system: 830 [facility] Normal Lymph # 2.6 10 1.5-5.0 10 [facility]: [address] [facility] Normal Shelby # 0.5 10 0.0-0.8 10 [facility]: 8[address] [facility] Normal Eos # 0.1 10 0.0-0.5 10 [facility]: [address] [facility] Normal Baso # 0.1 10 0.0-0.2 10 [facility]: 8[address] [facility] 01/22/2021 ESR (Erythrocyte Sedimentation Rate), Blood Hig h Erythrocyte Sedimentation Rate 23 mm/HR 0-20 mm/HR [facility]: 830 [facility] 01/22/2021 Hepatic Function Panel, Serum Normal AST/SG OT 16 U/L 7-37 U/L [facility]: 0 [facility] Normal ALT/SGPT 18 U/L 12-78 U/L [facility]: 0 [facility] Normal Alkaline Phosphatase 89 U/L 45-117 U /L [facility]: 0 [facility] Normal Bilirubin,total 0.6 mg/dL 0.2-1.0 mg /dL [facility]: 0 [facility] Normal Bilirubin,direct 0.2 mg/dL 0.0-0.2 m g/dL [facility]: 0 [facility] Normal Total Protein 8.0 gm/dL 6.4-8.2 gm/d L [facility]: 0 [facility] Normal Albumin 3.9 gm/dL 3.2-5.2 gm/dL Lisy l [facility]: 0 [facility] Low Albumin/globulin Ratio 1.0 1.2-2. 2 [facility]: [address] [facility] 01/22/2021 BMP, Serum or Plasma Normal Glucose, Fastin g 80 mg/dL 70-100 mg/dL [facility]: 83 0 [facility] Normal Blood Urea Nitrogen 10 mg/dL 7-18 mg /dL [facility]: 0 [facility] Normal Creatinine for GFR 0.85 mg/dL 0.55-1 .30 mg/dL [facility]: [address] [facility] Normal Glomerular Filtration Rate > 60.0 >6 0 [facility]: [address] [facility] Normal Sodium Level 137 mEq/L 136-145 mEq/L [facility]: [address] [place] [address] D Potassium Serum 4.7 mEq/L 3.5-5.1 mE q/L [facility]: [address] [place] [address] Normal Chloride Level 103 mEq/L 98-107 mEq/ L [facility]: 0 [facility] Normal Carbon Dioxide Level 30 mEq/L 21-32 mEq/L [facility]: [address] [place] [address] Low Anion Gap 4 mEq/L 8-16 mEq/L [facility]: [address] [place] [address] Normal Calcium Level 9.1 mg/dL 8.5-10.1 mg/ dL [facility]: [address] [place] [address] 01/22/2021 Shelby Screen Normal Shelby Scrn negative negative [facility]: 0 [facility] 01/22/2021 C Reactive Protein, QN, Serum or Plasma High C Reactive Protein Quantitativ 0.52 mg/dL 0.00-0.30 mg/dL [facility]: [address] [place] [address] 01/22/2021 PT/INR Normal Prothrombin Time 13.1 secon ds 12.5-14.3 seconds [facility]: [address] [place] [address] Normal Inr 0.97 [facility]: 0 [facility] 01/22/2021 Partial Thromboplastin Time Normal Partial Thromboplastin Time 29.5 seconds 24.2-38.5 seconds [facility] nter: 0 [facility] 01/22/2021 D-dimer, Quant, Plasma Normal D-dimer Quant 412.19 NG/mL <500 NG/mL [facility]: 83 0 [facility] 01/20/2021 Urinalysis, Dipstick Normal Appearance, Uri ne clear clear [facility]: 0 [facility] Normal Color, Urine yellow yellow Final [facility]: 830 [facility] Normal pH,urine 5.0 units 5.0-9.0 units [facility]: 8[address] [facility] Normal Specific Perrin Urine Auto 1.027 1 .002-1.035 [facility]: 8[address] [facility] High Protein, Urine Auto 1+ mg/dL negativ e mg/dL [facility]: 8[address] [facility] Normal Glucose, Urine (UA) Auto negative mg /dL negative mg/dL [facility]: 8[address] [facility] Normal Ketone, Urine Auto negative mg/dL ne gative mg/dL [facility]: [address] [facility] Normal Urobilinogen, Urine Auto 0.2 mg/dL 0 .0-2.0 mg/dL [facility]: [address] [facility] Normal Bilirubin, Urine Auto negative negat perry [facility]: 8[address] [facility] Normal Nitrite, Urine Auto negative negativ e [facility]: [address] [facility] High Leukocyte Esterase, Urine Auto 1+ negative [facility]: 8[address] [facility] Normal Blood, Urine Blood negative negative [facility]: 830 [facility] Normal WBC, Urine Auto 0 /hpf 0-3 /hpf Health system: 830 [facility] Normal RBC, Urine Auto 2 /hpf 0-3 /hpf Health system: 830 [facility] Normal Bacteria, Urine Auto negative negati ve [facility]: 830 [facility] Normal Squamous Epithelial Cell Ur AU 2 /hp f 0-6 /hpf [facility] [facility] [address] [facility] Normal Mucus, Urine small negative [facility]: [address] [facility] Normal Hyaline Cast, Urine Auto 0 /lpf 0-1 /lpf [facility]: [address] [facility] 01/20/2021 Cardiovascular Assessment Panel, Serum Normal CPK Creatine Phosphokinase 122 U/L 26-192 U/L [facility]: [address] [place] [address] Normal CK-mb Value Mass 1.4 NG/mL <3.6 NG/m L [facility]: [address] [place] [address] Normal mb/CK Relative Index 1.15 < or =4 [facility]: [address] [place] [address] Normal Troponin I < 0.02 NG/mL < 0.10 NG/mL [facility]: [address] [place] [address] 12/25/2020 Electrocardiogram Rate & Rhythm [facility]: [address], [place] Qrs [facility]ica l: [address], [place] Interval [facility]: [address], [place] QRS Duration [facility]: [address], [place] QT Interval [facility]: [address], [place] 12/22/2020 CBC W/ Auto Diff Normal White Blood Count 7.0 10 4.0-10.0 10 [facility]: [address] [place] [address] Normal Red Blood Count 4.40 10 4.00-5.40 10 [facility]: [address] [place] [address] Normal Hemoglobin 13.2 g/dL 12.0-15.5 g/dL [facility]: [address] [place] [address] Normal Hematocrit 40.3 % 36.0-47.0 % [facility]: [address] [place] [address] Normal Mean Corpuscular Volume 91.6 fL 80.0 -96.0 fL [facility]: [address] [place] [address] Normal Mean Corpuscular Hemoglobin 30.0 pg 27.0-33.0 pg [facility]: [address] [place] [address] Normal Mean Corpuscular HGB Conc 32.8 g/dL 32.0-36.5 g/dL [facility]: [address] [place] [address] Normal Red Cell Distribution Width 13.2 % 1 1.5-14.5 % [facility]: [address] [facility] Normal Platelet Count, Automated 319 10 150 -450 10 [facility]: [address] [facility] Normal Neutrophils % 45.4 % 36.0-66.0 % [facility]: [address] [facility] Normal Lymph % 43.2 % 24.0-44.0 % Final [facility]: [address] [facility] High [place] % 9.3 % 0.0-5.0 % Final [facility]: [address] [facility] Normal Eos % 1.4 % 0.0-3.0 % [facility]: [address] [facility] Normal Baso % 0.4 % 0.0-1.0 % [facility]: [address] [facility] Normal Immature Granulocyte % 0.3 % 0-3.0 % [facility]: [address] [facility] Normal Nucleated Red Blood Cell % 0.0 % 0- 0 % [facility]: [address] [facility] Normal Neutrophils # 3.2 10 1.5-8.5 10 Health system: [address] [facility] Normal Lymph # 3.0 10 1.5-5.0 10 [facility]: [address] [facility] Normal [place] # 0.7 10 0.0-0.8 10 [facility]: [address] [facility] Normal Eos # 0.1 10 0.0-0.5 10 [facility]: [address] [facility] Normal Baso # 0.0 10 0.0-0.2 10 [facility]: [address] [facility] 12/22/2020 CMP, Serum or Plasma Normal Glucose, Fastin g 91 mg/dL 70-100 mg/dL [facility]: 83 0 [facility] Normal Blood Urea Nitrogen 13 mg/dL 7-18 mg /dL [facility]: [address] [place] [address] Normal Creatinine for GFR 0.91 mg/dL 0.55-1 .30 mg/dL [facility]: [address] [place] [address] Normal Glomerular Filtration Rate > 60.0 >6 0 [facility]: 0 [facility] Normal Sodium Level 139 mEq/L 136-145 mEq/L [facility]: [address] [place] [address] Normal Potassium Serum 3.9 mEq/L 3.5-5.1 mE q/L [facility]: 0 [facility] Normal Chloride Level 102 mEq/L 98-107 mEq/ L [facility]: [address] [place] [address] Normal Carbon Dioxide Level 30 mEq/L 21-32 mEq/L [facility]: [address] [place] [address] Low Anion Gap 7 mEq/L 8-16 mEq/L [facility]: [address] [place] [address] Normal Calcium Level 9.3 mg/dL 8.5-10.1 mg/ dL [facility]: 0 [facility] Normal AST/SGOT 10 U/L 7-37 U/L [facility]: 0 [facility] Normal ALT/SGPT 19 U/L 12-78 U/L [facility]: 0 [facility] Normal Alkaline Phosphatase 73 U/L 45-117 U /L [facility]: [address] [place] [address] Normal Bilirubin,total 0.6 mg/dL 0.2-1.0 mg /dL [facility]: 0 [facility] Normal Total Protein 7.6 gm/dL 6.4-8.2 gm/d L [facility]: 0 [facility] Normal Albumin 3.9 gm/dL 3.2-5.2 gm/dL Lisy l [facility]: [address] [place] [address] Low Albumin/globulin Ratio 1.1 1.2-2. 2 [facility]: [address] [place] [address] 12/22/2020 TIBC (Total Iron-binding Capacity), Serum Normal Iron (Fe) 84 ug/dL 50-170 ug/dL [facility] nter: [address] [place] [address] Normal Total Iron Binding Capacity 419 ug/d L 250-450 ug/dL Final [facility]: [address] [place] [address] Normal Percent Saturation 20.0 % 13.2-45.0 % [facility]: [address] [place] [address] 12/22/2020 TSH + Free T4, Serum Normal Thyroid Stimulating Hormone 1.180 uIU/mL 0.358-3.740 uIU/mL [facility] nter: [address] [place] [address] Low Free T4 0.73 NG/dL 0.76-1.46 NG/dL F inal [facility]: [address] [place] [address] 12/22/2020 Vitamin D, 25-Hydroxy, Total, Serum Normal Total 25(Oh) Vitamin D 30.2 NG/mL 30.0-100.0 NG/mL Final [facility]: [address] [place] [address] 12/22/2020 beta-HCG, Qualitative, Serum or Plasma Normal HCG, Serum Qualitative negative negative Final [facility]: [address] [place] [address] Past Encounters 07/10/2021 Migraine; Tobacco User; Amenorrhea Gianni Solorzano MD: [address] [place] [address], Ph. 04/25/2021 Eczema of Scalp; Obstructive Sleep Apnea Syndrome; Migraine; Tobacco User Gianni Solorzano MD: [address] [place] [address], Ph. 03/28/2021 Eczema of Scalp; Obstructive Sleep Apnea Syndrome; Migraine Gianni Solorzano MD: [address] [facility] [address] [address], Ph. 01/31/2021 Tinea Capitis Gianni Solorzano MD: [address] [facility] [address] [address], Ph. 01/10/2021 Fatigue; Obstructive Sleep Apnea Syndrome Gianni Solorzano MD: [address] [facility], [facility] [address], [place] [address], Ph. 12/22/2020 Fatigue; Intermittent Palpitations RAMONITA De La Cruz: [address] [facility] [address], [place] [address], Ph. Social History Tobacco Smoking Status Heavy Tobacco Smoker (1/2 pack per a day) Vaccine List None recorded. Plan of Care Patient Instructions As we discussed, you EKG was normal and we will wait on your lab results and see you back in 1-2 weeks for recheck and to go over labs. If your labs are normal we may refer you to a turpentiner for your palpitations. Reminders Provider Appointments None recorded. Lab None recorded. Referral None recorded. Procedures None recorded. Surgeries None recorded. Imaging None recorded. Vitals 07/10/2021 01:20PM ESTABLISHED [id number] Height Weight BMI Blood Pressure 59.5 in 139 lbs 6 oz 27.7 kg/m2 118/84 mm[Hg] 04/25/2021 11:00AM ED FOLLOW-UP Height Weight BMI 59.5 in 130 lbs 16 oz 26 kg/m2 03/28/2021 09:40AM ESTABLISHED [id number] Height Weight BMI Blood Pressure 59.5 in 134 lbs 26.6 kg/m2 114/79 mm[Hg] 01/31/2021 03:20PM ESTABLISHED [id number] Height Weight BMI Blood Pressure 59.5 in 134 lbs 12.8 oz 26.8 kg/m2 127/77 mm[H g] 01/10/2021 10:20AM TELEHEALTH 20 Height 59.5 in 12/22/2020 10:10AM ESTABLISHED [id number] Height Weight BMI Blood Pressure 59.5 in 134 lbs 9.6 oz 26.7 kg/m2 117/78 mm[Hg ] 05/03/2020 Height Weight BMI Blood Pressure 59.5 in 124 lbs 6.08 oz 24.79 kg/m2 110/65 mm[H g]
--- OUTSIDE RECORDS SUMMARY | 2021-09-23 08:55 | CCD | Continuity of Care Document ---
Author Author Zakia ROSENBERG [place] Organization Unknown Address [address] [place] [address] Phone [phone] Care Team Providers Care Bricklayer Paving Brick Name Role Phone Gianni Solorzano M.D. AUTM [phone] AUTM Unavailable Problems Description No Information Available Social History Type Date Description Comments Sex Unknown Tobacco Use Start: Unknown Patient is a current smoker, smo kes every day Smoking Status Reviewed: 07/11/21 Patient is a current smoker, smokes every [...] Available Vital Signs Date Vital Result Comment 07/11/2021 9:47am BP Systolic 112 mmHg BP Diastolic 68 mmHg Heart Rate 97 /min O2 % BldC Oximetry 99 % Height 58.5 inches 4'10.50" Weight 138.12 lb BMI (Body Mass Index) 28.4 kg/m2 Sarita Body Weight 100 lb Neck Circumference in inches 15 [place] Score 23 Weight 62.654 kg BSA (Body Surface Area) 1.57 m2 Results Description No Information Available Procedures Date Code Description Status 07/11/2021 73227 Office/Outpatient New Low MDM 30 -44 Minutes Completed Medical Devices Description No Information Available Encounters Type Date Location Provider Dx Diagnosis Office Visit 07/11/2021 10:30a [facility] Pulmonary/Thoracic KO Seth R40.0 Somnolence R06.83 Snoring G47.30 Sleep apnea, unspecified Assessments Date Code Description Provider 07/11/2021 R40.0 Somnolence KO Seth 07/11/2021 R06.83 Snoring KO Seth 07/11/2021 G47.30 Sleep apnea, unspecified KO Seth Plan of Treatment Future Appointment(s):* 08/17/2021 10:00 am - KO Seth at [facility] Pulmonary/Thoracic * 08/01/2021 7:45 pm - [facility]11[facility] - KO Seth* R40.0 Somnolence * R06.83 Snoring * G47.30 Sleep apnea, unspecified * * New Orders:* Sleep Nocturnal Diagnostic Sleep Study, Ordered: 07/11/21 * Comments:* 1. The morbidity of untreated obstructive sleep apnea was reviewed and questions were answered.2. PSG and PAP therapy were reviewed and questions were answered.3. We will schedule for PSG.4. Sleep hygiene was reviewed. * Follow up:* 1. Follow up after testing. Functional Status Description No Information Available Mental Status Description No Information Available Referrals Refer to Reason for Referral Status Appt Date Deidra Dolan F.N.P. BEL[place] Created [facility]-Pulmonary [address] [place], [place] [id number] [phone] Deidra Dolan F.N.P. BELGICA Created [facility] [address] [place], [place] [address] [phone] Deidra Dolan F.N.P. BELGICA Scheduled 07/11/2021 [facility]-Pulmonary [address] [place], [place] [address] [phone]
--- OUTSIDE RECORDS SUMMARY | 2021-09-23 08:55 | CCD | Continuity of Care Document ---
Author Author Zakia SMITH Organization Unknown Address [address] [place] [address] [place] [address] Phone [phone] Care Team Providers Care Jamb Cutter Name Role Phone Gianni Solorzano MD AUTM [phone] Problems Description No Information Available Social History [...] A 08.4 Johnson Braov JR., M.D. 07/12/2021 Methadone HCL Unknown Zyprexa [...] Result H/L Range Note Laboratory test finding 07/12/[address] [address] [phone] Urine Culture <pending> Laboratory test finding 06/19/[address] [address] [phone] Urine Culture FULL REPORT IN L <SEE NOTE> Normal 1 Group A Stretp Culture 03/01/[address] [address] [phone] Group A Strep Culture FULL REPORT IN L <SEE NOTE> Nor mal 2 1 FULL REPORT IN LAB NOTES ([facility]). NO GROWTH CLINICAL SIGNIFICANCE 2 OR MORE ORGANISMS 2 FULL REPORT IN LAB NOTES ([facility]). NEGATIVE FOR STREP PYOGENES (GROUP A) Procedures Date Code Description Status 07/12/2021 02164 Office/Outpatient New Low MDM 30 -44 Minutes Completed 06/19/2021 22643 Office/Outpatient Established Lo w MDM 20-29 Min Completed 03/14/2021 70133 Office/Outpatient Established Lo w MDM 20-29 Min Completed 03/03/2021 34004 Office/Outpatient Established Lo w MDM 20-29 Min Completed 03/01/2021 33868 Office/Outpatient New Low MDM 30 -44 Minutes Completed Medical Devices Description No Information Available Encounters Type Date Location Provider Dx Diagnosis Office Visit 07/12/2021 9:10a Main Office Izaiah Smith, P.A. R1 0.9 Unspecified abdominal pain A08.4 [...] 06/19/2021 R35.0 Frequency of micturition Norah Overton, WIRE FRAME DIPPER 06/19/2021 N76.0 Acute vaginitis Norah Guillenruth calderon, [employer] FR[employer] D[employer]PER 06/19/2021 B35.2 Tinea manuum Norah calderon, [employer] FR[employer] D[employer]PER 03/14/2021 R11.0 Nausea KO Ruiz 03/14/2021 J06.9 [...]
--- OUTSIDE RECORDS SUMMARY | 2021-09-23 08:55 | CCD | Continuity of Care Document ---
Author Author Zakia ROSENBERG [place] Organization Unknown Address [address] [place] [address] Phone [phone] Care Team Providers Care Acupressure Therapist Name Role Phone Gianni Solorzano M.D. AUTM [phone] AUTM Unavailable Problems Description No Information Available [...] lb BMI (Body Mass Index) 28.4 kg/m2 [place] Body Weight 100 lb Neck Circumference in inches 15 [place] Score 23 Weight 62.654 kg BSA (Body Surface Area) 1.57 m2 Results Description No Information Available Procedures Description No Information Available Medical Devices Description No Information Available Encounters Description No Information Available Assessments Date Code Description Provider 07/11/2021 R40.0 Somnolence KO Seth 07/11/2021 R06.83 Snoring KO Seth 07/11/2021 G47.30 Sleep apnea, unspecified KO Seth Plan of Treatment Future Appointment(s):* 08/17/2021 10:00 am - KO Seth at [facility] Pulmonary/Thoracic * 08/01/2021 7:45 pm - [facility] Sleep Lab at [facility] Pulmonary/Thoracic 07/11/2021 - KO Seth* R40.0 Somnolence * [...] Appt Date Deidra Dolan F.N.P. [place] [facility] [address] [place] [address] [phone] Deidra Dolan F.N.P. BEL[place]ICA [facility] [address] [place], [place] [id number] [phone] Deidra Dolan F.N.P. BELGICA Scheduled 07/11/2021 [facility] [address] [place] [address] [phone]
--- OUTSIDE RECORDS SUMMARY | 2021-09-23 08:55 | CCD ---
Author Organization Unknown Address [address] [place] [address] Phone [phone] Care Team Providers Care Public Service Administrator Name Role Phone Tabby Lew Unavailable Unavailable [...] AT BEDTIME FOR 7 DAYS Completed 08/08/2021 NightTime Sleep Aid (diphenhydramine) 25 mg tablet [...] AT BEDTIME Completed topiramate 25 mg tablet TAKE ONE TABLET BY MOUTH AT BEDTIME Active Not available Wellbutrin SR [...] Delivery Information not avai lable 12/22/2020 Electrocardiogram [facility] [address] [place] [address] (Work Place) Notes: No known surgical history Results Lab Results Date Name Specimen Result Interpretation Description Value Range Status Address 05/11/2021 Cbc Normal White Blood Count 8.6 10 4.0-10. 0 10 [facility]: [address] [place] [address] Normal Red Blood Count 4.27 10 4.00-5.40 10 [facility]: [address] [place] [address] Normal Hemoglobin 13.2 g/dL 12.0-15.5 g/dL [facility]: [address] [place] [address] Normal Hematocrit 40.5 % 36.0-47.0 % [facility]: [address] [place] [address] Normal Mean Corpuscular Volume 94.8 fL 80.0 -96.0 fL [facility]: [address] [place] [address] Normal Mean Corpuscular Hemoglobin 30.9 pg 27.0-33.0 pg [facility]: [address] [place] [address] Normal Mean Corpuscular HGB Conc 32.6 g/dL 32.0-36.5 g/dL [facility]: [address] [place] [address] Normal Red Cell Distribution Width 12.8 % 1 1.5-14.5 % [facility]: [address] [place] [address] Normal Platelet Count, Automated 386 10 150 -450 10 [facility]: [address] [place] [address] Normal Nucleated Red Blood Cell % 0.0 % 0- 0 % [facility]: [address] [place] [address] 05/11/2021 CMP, Serum or Plasma Normal Glucose, Fastin g 81 mg/dL 70-100 mg/dL [facility]: 83 0 [facility] Normal Blood Urea Nitrogen 17 mg/dL 7-18 mg /dL [facility]: 830 [facility] Normal Creatinine for GFR 0.72 mg/dL 0.55-1 .30 mg/dL [facility]: 0 [facility] Normal Glomerular Filtration Rate > 60.0 >6 0 [facility]: 830 [facility] Normal Sodium Level 136 mEq/L 136-145 mEq/L [facility]: 0 [facility] Normal Potassium Serum 4.5 mEq/L 3.5-5.1 mE q/L [facility]: 830 [facility] Normal Chloride Level 102 mEq/L 98-107 mEq/ L [facility]: 0 [facility] Normal Carbon Dioxide Level 32 mEq/L 21-32 mEq/L [facility]: 0 [facility] Low Anion Gap 2 mEq/L 8-16 mEq/L [facility]: 0 [facility] Normal Calcium Level 9.5 mg/dL 8.5-10.1 mg/ dL [facility]: 830 [facility] Normal AST/SGOT 13 U/L 7-37 U/L [facility]: 0 [facility] Normal ALT/SGPT 22 U/L 12-78 U/L [facility]: 0 [facility] Normal Alkaline Phosphatase 85 U/L 45-117 U /L [facility]: 0 [facility] Normal Bilirubin,total 0.5 mg/dL 0.2-1.0 mg /dL [facility]: 830 [facility] Normal Total Protein 7.9 gm/dL 6.4-8.2 gm/d L [facility]: 0 [facility] Normal Albumin 4.0 gm/dL 3.2-5.2 gm/dL Lisy l [facility]: 0 [facility] Low Albumin/globulin Ratio 1.0 1.2-2. 2 [facility]: [address] [place] [address] 05/11/2021 Hepatitis C Ab, Serum Normal Hepati tis C Virus Elza Index < 0.0 index <0.8 index [facility] nter: [address] [place] [address] 05/11/2021 HBsAg (Hepatitis B Surface Ag), Serum Normal Hepatitis B Surface Antigen negative negative Final [facility]: [address] [place] [address] 05/11/2021 Syphilis Normal Syphilis nonreactive nonreacti ve [facility]: [address] [place] [address] 05/11/2021 beta-HCG, Qualitative, Serum or Plasma Normal HCG, Serum Qualitative negative negative [facility]: [address] [place] [address] 05/11/2021 HIV 1+2 AB + HIV 1 P24 Ag, Qualitative Immunoassay, Serum Normal HIV 1&2 Screen Centaur negative negative [facility] Center: [address] [place] [address] 05/11/2021 CT + NG DNA, Qual, PCR, Unspecified Specimen No rmal Chlamydia DNA Amplification negative negative [facility] ical Center: [address] [place] [address] Normal GC DNA Amplification negative negati ve [facility]: [address] [place] [address] 05/11/2021 Hepatitis C RNA, QL, PCR, Unspecified Specimen Normal HCV RNA PHILIPPE Qualitative negative negative [facility] Center: [address] [place] [address] 04/12/2021 Awilda Strep a Normal Awilda Strep a negative ne gative [facility]: [address] [place] [address] 04/12/2021 CBC W/ Auto Diff Normal White Blood Count 8.7 10 4.0-10.0 10 [facility]: [address] [place] [address] Normal Red Blood Count 4.29 10 4.00-5.40 10 [facility]: 0 [facility] Normal Hemoglobin 13.2 g/dL 12.0-15.5 g/dL [facility]: 0 [facility] Normal Hematocrit 40.0 % 36.0-47.0 % [facility]: [address] [place] [address] Normal Mean Corpuscular Volume 93.2 fL 80.0 -96.0 fL [facility]: [address]30 [facility] Normal Mean Corpuscular Hemoglobin 30.8 pg 27.0-33.0 pg [facility]: 830 [facility] Normal Mean Corpuscular HGB Conc 33.0 g/dL 32.0-36.5 g/dL [facility]: 830 [facility] Normal Red Cell Distribution Width 12.7 % 1 1.5-14.5 % [facility]: 830 [facility] Normal Platelet Count, Automated 296 10 150 -450 10 [facility]: 830 [facility] Normal Neutrophils % 63.4 % 36.0-66.0 % [facility]: 8[address] [facility] Normal Lymph % 28.4 % 24.0-44.0 % [facility]: 8[address] [facility] Normal Wright % 7.3 % 2.0-8.0 % Final [facility]: [address] [facility] Normal Eos % 0.2 % 0.0-3.0 % [facility]: 830 [facility] Normal Baso % 0.5 % 0.0-1.0 % [facility]: 0 [facility] Normal Immature Granulocyte % 0.2 % 0-3.0 % [facility]: 830 [facility] Normal Nucleated Red Blood Cell % 0.0 % 0- 0 % [facility]: 830 [facility] Normal Neutrophils # 5.5 10 1.5-8.5 10 [facility]: [address] [facility] Normal Lymph # 2.5 10 1.5-5.0 10 [facility]: 0 [facility] Normal Wright # 0.6 10 0.0-0.8 10 [facility]: [address] [facility] Normal Eos # 0.0 10 0.0-0.5 10 [facility]: 830 [facility] Normal Baso # 0.0 10 0.0-0.2 10 [facility]: 830 [facility] 04/12/2021 Hepatic Function Panel, Serum Normal AST/SG OT 11 U/L 7-37 U/L [facility]: 830 [facility] Normal ALT/SGPT 16 U/L 12-78 U/L [facility]: 8[address] [facility] Normal Alkaline Phosphatase 71 U/L 45-117 U /L [facility]: 830 [facility] Normal Bilirubin,total 0.9 mg/dL 0.2-1.0 mg /dL [facility]: 830 [facility] Normal Bilirubin,direct 0.2 mg/dL 0.0-0.2 m g/dL [facility]: 830 [facility] Normal Total Protein 8.0 gm/dL 6.4-8.2 gm/d L [facility]: 830 [facility] Normal Albumin 4.1 gm/dL 3.2-5.2 gm/dL Lisy l [facility]: 830 [facility] Low Albumin/globulin Ratio 1.1 1.2-2. 2 [facility]: 830 [facility] 04/12/2021 BMP, Serum or Plasma Normal Glucose, Fastin g 76 mg/dL 70-100 mg/dL [facility]: 83 0 [facility] Normal Blood Urea Nitrogen 11 mg/dL 7-18 mg /dL [facility]: 830 [facility] Normal Creatinine for GFR 0.79 mg/dL 0.55-1 .30 mg/dL [facility]: 8[address] [facility] Normal Glomerular Filtration Rate > 60.0 >6 0 [facility]: 830 [facility] Normal Sodium Level 138 mEq/L 136-145 mEq/L [facility]: 0 [facility] Normal Potassium Serum 4.1 mEq/L 3.5-5.1 mE q/L [facility]: [address]30 [facility] Normal Chloride Level 103 mEq/L 98-107 mEq/ L [facility]: 0 [facility] Normal Carbon Dioxide Level 30 mEq/L 21-32 mEq/L [facility]: 0 [facility] Low Anion Gap 5 mEq/L 8-16 mEq/L [facility]: [address] [place] [address] Normal Calcium Level 9.1 mg/dL 8.5-10.1 mg/ dL [facility]: [address] [place] [address] 04/12/2021 TSH, Serum or Plasma Normal Thyroid Stimulating Hormone 0.594 uIU/mL 0.358-3.740 uIU/mL [facility] nter: [address] [place] [address] 04/12/2021 T4, Free, Serum Normal Free T4 0.92 NG/dL 0.76-1.46 NG/dL [facility]: [address] [place] [address] 04/12/2021 Wright Reflex Ebv Comprehensive Normal Wright Reflex Ebv Comp negative negative [facility] nter: [address] [place] [address] 04/12/2021 beta-HCG, Qualitative, Serum or Plasma Normal HCG, Serum Qualitative negative negative [facility]: [address] [place] [address] 04/12/2021 Respiratory Virus Panel NASOPHARYNX No observ ation recorded. [facility]: [address] [place] [address] 04/12/2021 Lyme Disease Igg+igm Ab, Serum Normal Lyme Disease IgG/IgM Antibodie <0.91 isr 0.00-0.90 isr [facility]: [address] [facility] Normal Lyme Disease IgM Ab Quantitati <0.80 index 0.00-0.79 index [facility]: 0 [facility] 04/12/2021 Ebv Ab Comprehensive Normal Ebv Viral Capsi d Ag IgM <36.0 U/mL 0.0-35.9 U/mL [facility]: 83 0 [facility] High Ebv Viral Capsid Ag IgG >600.0 U/mL 0.0-17.9 U/mL [facility]: 8[address] [facility] High Ebv Ab to Nuclear Antigen 277.0 U/mL 0.0-17.9 U/mL [facility]: 830 [facility] Normal Ebv Interpretation . Fin [facility]: 830 [facility] 01/22/2021 Awilda Covid Antigen Normal Awilda Covid Anti gen negative negative [facility]: 83 0 [facility] 01/22/2021 Istat Chem8+ Panel Normal Istat HCT 41.0 % 38. 0-51.0 % [facility]: 8[address] [facility] Normal Istat Glucose 83 mg/dL 70-105 mg/dL [facility]: 830 [facility] Normal Istat Sodium 138 mEq/L 136-145 mEq/L [facility]: 830 [facility] Normal Istat Potassium 4.6 mEq/L 3.5-5.1 mE q/L [facility]: 8[address] [facility] Normal Istat Ca++ 4.9 mg/dL 4.5-5.3 mg/dL [facility]: [address] [facility] Normal Istat Chloride 99 mEq/L 98-109 mEq/L [facility]: 830 [facility] High Istat CO2 31.0 mm/L 23.0-27.0 mm/L [facility]: 8[address] [facility] Normal Istat BUN 9 mg/dL 8-26 mg/dL [facility]: 8[address] [facility] Normal Istat Creatinine 0.8 mg/dL 0.6-1.3 m g/dL [facility]: 830 [facility] 01/22/2021 Istat B-HCG Normal Istat B-HCG < 5.0 F [facility]: 8[address] [facility] 01/22/2021 CBC W/ Auto Diff Normal White Blood Count 6.9 10 4.0-10.0 10 [facility]: 8[address] [facility] Normal Red Blood Count 4.43 10 4.00-5.40 10 [facility]: [address] [facility] Normal Hemoglobin 13.3 g/dL 12.0-15.5 g/dL [facility]: [address] [facility] Normal Hematocrit 40.9 % 36.0-47.0 % [facility]: 830 [facility] Normal Mean Corpuscular Volume 92.3 fL 80.0 -96.0 fL [facility]: [address] [place] [address] Normal Mean Corpuscular Hemoglobin 30.0 pg 27.0-33.0 pg [facility]: [address] [place] [address] Normal Mean Corpuscular HGB Conc 32.5 g/dL 32.0-36.5 g/dL [facility]: 8[address] [facility] Normal Red Cell Distribution Width 12.6 % 1 1.5-14.5 % [facility]: 8[address] [facility] Normal Platelet Count, Automated 299 10 150 -450 10 [facility]: [address] [facility] Normal Neutrophils % 52.0 % 36.0-66.0 % [facility]: 8[address] [facility] Normal Lymph % 38.0 % 24.0-44.0 % [facility]: 8[address] [facility] Normal Wright % 7.8 % 2.0-8.0 % [facility]: 8[address] [facility] Normal Eos % 1.5 % 0.0-3.0 % [facility]: 8[address] [facility] Normal Baso % 0.7 % 0.0-1.0 % [facility]: 8[address] [facility] Normal Immature Granulocyte % 0.0 % 0-3.0 % [facility]: 8[address] [facility] Normal Nucleated Red Blood Cell % 0.0 % 0- 0 % [facility]: 8[address] [facility] Normal Neutrophils # 3.6 10 1.5-8.5 10 [facility]: [address] [facility] Normal Lymph # 2.6 10 1.5-5.0 10 [facility]: [address] [facility] Normal Wright # 0.5 10 0.0-0.8 10 [facility]: [address] [facility] Normal Eos # 0.1 10 0.0-0.5 10 [facility]: [address] [facility] Normal Baso # 0.1 10 0.0-0.2 10 [facility]: 0 [facility] 01/22/2021 ESR (Erythrocyte Sedimentation Rate), Blood Hig h Erythrocyte Sedimentation Rate 23 mm/HR 0-20 mm/HR [facility]: 0 [facility] 01/22/2021 Hepatic Function Panel, Serum Normal AST/SG OT 16 U/L 7-37 U/L [facility]: [address] [facility] Normal ALT/SGPT 18 U/L 12-78 U/L [facility]: 0 [facility] Normal Alkaline Phosphatase 89 U/L 45-117 U /L [facility]: 0 [facility] Normal Bilirubin,total 0.6 mg/dL 0.2-1.0 mg /dL [facility]: 0 [facility] Normal Bilirubin,direct 0.2 mg/dL 0.0-0.2 m g/dL [facility]: 0 [facility] Normal Total Protein 8.0 gm/dL 6.4-8.2 gm/d L [facility]: 0 [facility] Normal Albumin 3.9 gm/dL 3.2-5.2 gm/dL [facility]: 0 [facility] Low Albumin/globulin Ratio 1.0 1.2-2. 2 [facility]: 0 [facility] 01/22/2021 BMP, Serum or Plasma Normal Glucose, Fastin g 80 mg/dL 70-100 mg/dL [facility]: 83 0 [facility] Normal Blood Urea Nitrogen 10 mg/dL 7-18 mg /dL [facility]: 830 [facility] Normal Creatinine for GFR 0.85 mg/dL 0.55-1 .30 mg/dL [facility]: 8[address] [facility] Normal Glomerular Filtration Rate > 60.0 >6 0 [facility]: [address] [facility] Normal Sodium Level 137 mEq/L 136-145 mEq/L [facility]: 8[address] [facility] D Potassium Serum 4.7 mEq/L 3.5-5.1 mE q/L [facility]: 830 [facility] Normal Chloride Level 103 mEq/L 98-107 mEq/ L [facility]: 8[address] [facility] Normal Carbon Dioxide Level 30 mEq/L 21-32 mEq/L [facility]: 8[address] [facility] Low Anion Gap 4 mEq/L 8-16 mEq/L [facility]: 0 [facility] Normal Calcium Level 9.1 mg/dL 8.5-10.1 mg/ dL [facility]: 830 [facility] 01/22/2021 Wright Screen Normal Wright Scrn negative negative [facility]: 0 [facility] 01/22/2021 C Reactive Protein, QN, Serum or Plasma High C Reactive Protein Quantitativ 0.52 mg/dL 0.00-0.30 mg/dL [facility]: 8[address] [facility] 01/22/2021 PT/INR Normal Prothrombin Time 13.1 secon ds 12.5-14.3 seconds [facility]: 0 [facility] Normal Inr 0.97 [facility]: 0 [facility] 01/22/2021 Partial Thromboplastin Time Normal Partial Thromboplastin Time 29.5 seconds 24.2-38.5 seconds [facility] nter: 830 [facility] 01/22/2021 D-dimer, Quant, Plasma Normal D-dimer Quant 412.19 NG/mL <500 NG/mL [facility]: 83 0 [facility] 01/20/2021 Urinalysis, Dipstick Normal Appearance, Uri ne clear clear [facility]: 8[address] [facility] Normal Color, Urine yellow yellow [facility]: 8[address] [facility] Normal pH,urine 5.0 units 5.0-9.[address] [facility]: 8[address] [facility] Normal Specific [place] Urine Auto 1.027 1 .002-1.035 [facility]: 8[address] [facility] High Protein, Urine Auto 1+ mg/dL negativ e mg/dL [facility]: [address] [facility] Normal Glucose, Urine (UA) Auto negative mg /dL negative mg/dL [facility]: [address] [facility] Normal Ketone, Urine Auto negative mg/dL ne gative mg/dL [facility]: [address] [facility] Normal Urobilinogen, Urine Auto 0.2 mg/dL 0 .0-2.0 mg/dL [facility]: [address] [facility] Normal Bilirubin, Urine Auto negative negat perry [facility]: [address] [facility] Normal Nitrite, Urine Auto negative negativ e [facility]: [address] [facility] High Leukocyte Esterase, Urine Auto 1+ negative [facility]: [address] [facility] Normal Blood, Urine Blood negative negative [facility]: [address] [facility] Normal WBC, Urine Auto 0 /hpf 0-3 /hpf [facility]: 8[address] [facility] Normal RBC, Urine Auto 2 /hpf 0-3 /hpf [facility]: [address] [facility] Normal Bacteria, Urine Auto negative negati ve [facility]: 8[address] [facility] Normal Squamous Epithelial Cell Ur AU 2 /hp f 0-6 /hpf [facility]: [address] [place] [address] Normal Mucus, Urine small negative [facility]: [address] [place] [address] Normal Hyaline Cast, Urine Auto 0 /lpf 0-1 /lpf [facility]: [address] [place] [address] 01/20/2021 Cardiovascular Assessment Panel, Serum Normal CPK Creatine Phosphokinase 122 U/L 26-192 U/L [facility]: [address] [place] [address] Normal CK-mb Value Mass 1.4 NG/mL <3.6 NG/m L [facility]: [address] [place] [address] Normal mb/CK Relative Index 1.15 < or =4 [facility]: [address] [place] [address] Normal Troponin I < 0.02 NG/mL < 0.10 NG/mL [facility]: 0 [facility] 12/25/2020 Electrocardiogram Rate & Rhythm [facility]: [address], [place] Qrs [facility] l: [address], [place] Interval [facility]: [address], [place] QRS Duration [facility]: [address], [place] QT Interval [facility]: [address], [place] 12/22/2020 CBC W/ Auto Diff Normal White Blood Count 7.0 10 4.0-10.0 10 [facility]: [address] [facility] Normal Red Blood Count 4.40 10 4.00-5.40 10 [facility]: 0 [facility] Normal Hemoglobin 13.2 g/dL 12.0-15.5 g/dL [facility]: 0 [facility] Normal Hematocrit 40.3 % 36.0-47.0 % [facility]: 0 [facility] Normal Mean Corpuscular Volume 91.6 fL 80.0 -96.0 fL [facility]: 830 [facility] Normal Mean Corpuscular Hemoglobin 30.0 pg 27.0-33.0 pg Final [facility]: 830 [facility] Normal Mean Corpuscular HGB Conc 32.8 g/dL 32.0-36.5 g/dL [facility]: 830 [facility] Normal Red Cell Distribution Width 13.2 % 1 1.5-14.5 % [facility]: [address] [place] [address] Normal Platelet Count, Automated 319 10 150 -450 10 [facility]: 830 [facility] Normal Neutrophils % 45.4 % 36.0-66.0 % [facility]: 830 [facility] Normal Lymph % 43.2 % 24.0-44.0 % [facility]: 8[address] [facility] High Wright % 9.3 % 0.0-5.0 % Final [facility]: 830 [facility] Normal Eos % 1.4 % 0.0-3.0 % [facility]: 830 [facility] Normal Baso % 0.4 % 0.0-1.0 % [facility]: 0 [facility] Normal Immature Granulocyte % 0.3 % 0-3.0 % [facility]: 830 [facility] Normal Nucleated Red Blood Cell % 0.0 % 0- 0 % [facility]: 830 [facility] Normal Neutrophils # 3.2 10 1.5-8.5 10 [facility]: [address] [facility] Normal Lymph # 3.0 10 1.5-5.0 10 [facility]: [address] [facility] Normal Wright # 0.7 10 0.0-0.8 10 [facility]: [address] [facility] Normal Eos # 0.1 10 0.0-0.5 10 [facility]: [address] [facility] Normal Baso # 0.0 10 0.0-0.2 10 [facility]: 830 [facility] 12/22/2020 CMP, Serum or Plasma Normal Glucose, Fastin g 91 mg/dL 70-100 mg/dL [facility]: 83 0 [facility] Normal Blood Urea Nitrogen 13 mg/dL 7-18 mg /dL [facility]: 830 [facility] Normal Creatinine for GFR 0.91 mg/dL 0.55-1 .30 mg/dL [facility]: 830 [facility] [facility] Normal Glomerular Filtration Rate > 60.0 >6 0 [facility]: 830 [facility] Normal Sodium Level 139 mEq/L 136-145 mEq/L [facility]: 830 [facility] Normal Potassium Serum 3.9 mEq/L 3.5-5.1 mE q/L [facility]: 830 [facility] Normal Chloride Level 102 mEq/L 98-107 mEq/ L [facility]: 830 [facility] Normal Carbon Dioxide Level 30 mEq/L 21-32 mEq/L [facility]: 830 [facility] Low Anion Gap 7 mEq/L 8-16 mEq/L [facility]: 830 [facility] Normal Calcium Level 9.3 mg/dL 8.5-10.1 mg/ dL [facility]: 830 [facility] Normal AST/SGOT 10 U/L 7-37 U/L [facility]: 830 [facility] Normal ALT/SGPT 19 U/L 12-78 U/L [facility]: 830 [facility] Normal Alkaline Phosphatase 73 U/L 45-117 U /L [facility]: 830 [facility] Normal Bilirubin,total 0.6 mg/dL 0.2-1.0 mg /dL [facility]: 830 [facility] Normal Total Protein 7.6 gm/dL 6.4-8.2 gm/d L [facility]: [address] [place] [address] Normal Albumin 3.9 gm/dL 3.2-5.2 gm/dL Lisy l [facility]: [address] [place] [address] Low Albumin/globulin Ratio 1.1 1.2-2. 2 [facility]: [address] [place] [address] 12/22/2020 TIBC (Total Iron-binding Capacity), Serum Normal Iron (Fe) 84 ug/dL 50-170 ug/dL [facility] nter: [address] [place] [address] Normal Total Iron Binding Capacity 419 ug/d L 250-450 ug/dL [facility]: [address] [place] [address] Normal Percent Saturation 20.0 % 13.2-45.0 % [facility]: [address] [place] [address] 12/22/2020 TSH + Free T4, Serum Normal Thyroid Stimulating Hormone 1.180 uIU/mL 0.358-3.740 uIU/mL [facility] nter: [address] [place] [address] Low Free T4 0.73 NG/dL 0.76-1.46 NG/dL F greeleyl [facility]: [address] [place] [address] 12/22/2020 Vitamin D, 25-Hydroxy, Total, Serum Normal Total 25(Oh) Vitamin D 30.2 NG/mL 30.0-100.0 NG/mL Final [facility]: [address] [place] [address] 12/22/2020 beta-HCG, Qualitative, Serum or Plasma Normal HCG, Serum Qualitative negative negative Final [facility]: [address] [place] [address] Past Encounters 08/08/2021 Administrative Reason for Encounter; Generalized Anxiety Disorder; Bipolar Disorder Igor Choi RPA-C: [address] [facility] [address] [address], Ph. 07/10/2021 Migraine; Tobacco User; Amenorrhea Gianni Solorzano MD: [address] [place] [address], Ph. 04/25/2021 Eczema of Scalp; Obstructive Sleep Apnea Syndrome; Migraine; Tobacco User Gianni Solorzano MD: [address] [place] [address], Ph. 03/28/2021 Eczema of Scalp; Obstructive Sleep Apnea Syndrome; Migraine Gianni Solorzano MD: [address] [facility], [facility] [address], [place] [address], Ph. 01/31/2021 Tinea Capitis Gianni Solorzano MD: [address] [facility], [facility] [address], [place] [address], Ph. 01/10/2021 Fatigue; Obstructive Sleep Apnea Syndrome Gianni Solorzano MD: [address] [facility], [facility] [address], [place] [address], Ph. 12/22/2020 Fatigue; Intermittent Palpitations RAMONITA De La Cruz: [address] [facility], [facility] [address], [place] [address], Ph. Social History Tobacco Smoking Status Heavy Tobacco Smoker (1/2 pack per a day) Vaccine List None recorded. Plan of Care Patient Instructions As we discussed, you EKG was normal and we will wait on your lab results and see you back in 1-2 weeks for recheck and to go over labs. If your labs are normal we may refer you to a stars coordinator for your palpitations. Reminders Provider Appointments None recorded. Lab None recorded. Referral None recorded. Procedures None recorded. Surgeries None recorded. Imaging None recorded. Vitals 07/10/2021 01:20PM ESTABLISHED [id number] Height Weight BMI Blood Pressure 59.5 in 139 lbs 6 oz 27.7 kg/m2 118/84 mm[Hg] 04/25/2021 11:00AM ED FOLLOW-UP Height Weight BMI 59.5 in 130 lbs 16 oz 26 kg/m2 03/28/2021 09:40AM ESTABLISHED [id number] Height Weight BMI Blood Pressure 59.5 in 134 lbs 26.6 kg/m2 114/79 mm[Hg] 01/31/2021 03:20PM ESTABLISHED [id number] Height Weight BMI Blood Pressure 59.5 in 134 lbs 12.8 oz 26.8 kg/m2 127/77 mm[H g] 01/10/2021 10:20AM TELEHEALTH 20 Height 59.5 in 12/22/2020 10:10AM ESTABLISHED [id number] Height Weight BMI Blood Pressure 59.5 in 134 lbs 9.6 oz 26.7 kg/m2 117/78 mm[Hg ] 05/03/2020 Height Weight BMI Blood Pressure 59.5 in 124 lbs 6.08 oz 24.79 kg/m2 110/65 mm[H g]
--- OUTSIDE RECORDS SUMMARY | 2021-09-23 08:55 | CCD | Continuity of Care Document ---
Author Author Zakia SMITH Organization Unknown Address [address] [place] [address] [place] [address] Phone [phone] Care Team Providers Care Oil Tester Name Role Phone Gianni Solorzano MD AUTM [phone] Problems Description No Information Available Social History [...] H/L Range Note CBC With Differential 07/12/2021 [id number] [place], [place] [id number] [phone] White Blood Count 9.0 10 Normal 4.0-10.0 [...] 36.0-66.0 Lymph % 19.2 % Low 24.0-44.0 Johnston % 5.7 % Normal 2.0-8.0 Eos % 0.1 % Normal 0.0-3.0 Baso % 0.3 % Normal 0.0-1.0 Immature Granulocyte % 0.6 % Normal 0-3.0 Nucleated Red Blood Cell % 0.0 % Normal 0-0 Neutrophils # 6.6 10 Normal 1.5-8.5 Lymph # 1.7 10 Normal 1.5-5.0 Johnston # 0.5 10 Normal 0.0-0.8 Eos # 0.0 10 Normal 0.0-0.5 Baso # 0.0 10 Normal 0.0-0.2 Comprehensive Metabolic Profil 07/12/[address] [address] [phone] Glucose, Fasting 99 mg/dL Normal 70-100 Blood [...] 1.1 Low 1.2-2.2 Laboratory test finding 07/12/[address] [address] [phone] Lipase 49 U/L Low 73-393 Laboratory test finding 07/12/[address] [address] [phone] Urine Culture <pending> Laboratory test finding 06/19/[address] [address] [phone] Urine Culture FULL REPORT IN L <SEE NOTE> Normal 2 Group A Stretp Culture 03/01/[address] [address] [phone] Group A Strep Culture FULL REPORT IN L <SEE NOTE> Nor mal 3 1 Units are mL/min/1.73 m2 Chronic Kidney Disease Staging per NKF: Stage I & II GFR >=60 Normal to Mildly Decreased Stage III GFR 30-59 Moderately Decreased Stage IV GFR 15-29 Severely Decreased Stage V GFR <15 Very Little GFR Left ESRD GFR <15 on VENDING ATTENDANT 2 FULL REPORT IN LAB NOTES ([facility]). NO GROWTH CLINICAL SIGNIFICANCE 2 OR MORE ORGANISMS 3 FULL REPORT IN LAB NOTES ([facility]). NEGATIVE FOR STREP PYOGENES (GROUP A) Procedures Date Code Description Status 07/12/2021 57486 Office/Outpatient Established Lo w MDM 20-29 Min Completed 07/12/2021 60518 Office/Outpatient New Low MDM 30 -44 Minutes Completed 06/19/2021 45437 Office/Outpatient Established Lo w MDM 20-29 Min Completed 03/14/2021 36908 Office/Outpatient Established Lo w MDM 20-29 Min Completed 03/03/2021 44818 Office/Outpatient Established Lo w MDM 20-29 Min Completed 03/01/2021 10180 Office/Outpatient New Low MDM 30 -44 Minutes [...] 06/19/2021 R35.0 Frequency of micturition Norah Overton, REFRIGERATION ENGINEER 06/19/2021 N76.0 Acute vaginitis Norah calderon, REFRIGERATION ENGINEER 06/19/2021 B35.2 Tinea manuum Norah calderon, REFRIGERATION ENGINEER 03/14/2021 R11.0 Nausea KO Ruiz 03/14/2021 J06.9 [...]
--- OUTSIDE RECORDS SUMMARY | 2021-09-23 08:55 | CCD | Continuity of Care Document ---
Author Author Zakia URBAN Organization Unknown Address [address] [place] [address] Phone [phone] Care Team Providers Care Computer Aided Design Designer Name Role Phone Gianni Solorzano M.D. AUTM [phone] Problems Active Problems Provider Date Migraine John Fuentes M.D. Onset: 06/22/2021 Social History Type Date [...] tabs qhs x7days, then 100mg tab qhs. 42tabs John Fuentes M.D. 06/22/2021 Topiramate 100mg Tablets take one tablet by mouth at bedtime 30tabs John Fuentes M.D. 2020 Methadone HCL 10mg/5ML Solution pt takes 160 mg once a day through [facility] Unknown Immunizations Description No Information Available Vital Signs Date Vital Result Comment 06/22/2021 8:58am Respiratory Rate 12 /min Height 58 inches 4'10" Weight 130.00 lb BMI (Body Mass Index) 27.2 kg/m2 Lotus Body Weight 100 lb Results Description No Information Available Procedures Date Code Description Status 06/22/2021 73516 Office/Outpatient New Moderate M DM 45-59 Minutes Completed Medical Devices Description No Information Available Encounters Type Date Location Provider Dx Diagnosis Office Visit 06/22/2021 9:00a Main office - [place] John noe M.D. G43.719 Chronic migraine w/o aura, intractable, w/o stat migr R42 Dizziness and giddiness R11.0 Nausea Assessments Date Code Description Provider 06/22/2021 G43.719 Chronic migraine wit hout aura, intractable, without status migrainosus John Fuentes M.D. 06/22/2021 R42 Dizziness and giddiness John sinha M.D. 06/22/2021 R11.0 Nausea John Fuentes M.D. Plan of Treatment Future Appointment(s):* 09/27/2021 2:30 pm - John Fuentes M.D. at Main office - [place] Functional Status Description No Information Available Mental Status Description No Information Available Referrals Description No Information Available
--- OUTSIDE RECORDS SUMMARY | 2021-09-23 08:55 | CCD | Continuity of Care Document ---
Author Author Zakia URBAN Organization Unknown Address [address] [place] [address] Phone [phone] Care Team Providers Care [employer] Principal Name Role Phone Gianni Solorzano M.D. AUTM [phone] Problems Active Problems Provider Date Migraine John [...] lb BMI (Body Mass Index) 27.2 kg/m2 [place] Body Weight 100 lb Results Description No Information Available Procedures Date Code Description Status 07/06/2021 69632 MRI Brain W/O Contrast Completed 07/06/2021 51101 MRI Brain W/O Contrast Completed 07/06/2021 68147 Magnetic Resonance Angiogtaphy H ead W/O Contrast Material(S) Completed 07/06/2021 13808 Magnetic Resonance Angiogtaphy H ead W/O Contrast Material(S) Completed 06/22/2021 22869 Office/Outpatient New Moderate M DM 45-59 Minutes Completed Medical Devices Description No Information Available Encounters Type Date Location Provider Dx Diagnosis Office Visit 06/22/2021 9:00a [facility] office - [place] John noe M.D. G43.719 Chronic migraine w/o aura, intractable, w/o stat migr R42 Dizziness and giddiness R11.0 Nausea Assessments Date Code Description Provider 07/06/2021 G43.719 Chronic migraine wit hout aura, intractable, without status migrainosus Chris Gonzales M.D. 07/06/2021 G43.719 Chronic migraine wit hout aura, intractable, without status migrainosus MRI 07/06/2021 R42 Dizziness and giddiness Chris Vergara M.D. 07/06/2021 R42 Dizziness and giddiness MRI 07/06/2021 R11.0 Nausea Veronica Wen 07/06/2021 R11.0 Nausea MRI 07/06/2021 O87.3 Cerebral venous thrombosis in th e puerperium Chris Gonzales M.D. 07/06/2021 O87.3 Cerebral venous thrombosis in th e puerperium MRI 06/22/2021 G43.719 Chronic migraine wit hout aura, intractable, without status migrainosus John Fuentes M.D. 06/22/2021 R42 Dizziness and giddiness John sinha M.D. 06/22/2021 R11.0 Nausea John Fuentes M.D. Plan of Treatment Future Appointment(s):* 09/27/2021 2:30 pm - John Fuentes M.D. at [facility] office - [place] Functional Status Description No Information Available Mental Status Description No Information Available Referrals Refer to Reason for Referral Status Appt Date John Fuentes M.D. Created 0 [address] [place] [address] [phone]
--- OUTSIDE RECORDS SUMMARY | 2021-09-23 08:57 | CCD ---
Author Author [facility] Organization [facility] Address Unknown Phone Unavailable Care Team Providers Care Car Hostler Name Role Phone Girish Solorzano MD Unavailable Unavailable Girish Solorzano MD Unavailable Unavailable Girish Solorzano MD Unavailable Unavailable Girish Solorzano MD Unavailable Unavailable Girish Solorzano MD Unavailable Unavailable Girish Solorzano MD Unavailable Unavailable Girish Solorzano MD Unavailable Unavailable Girish Solorzano MD Unavailable Unavailable Girish Solorzano MD Unavailable Unavailable Girish Solorzano MD Unavailable Unavailable Girish Solorzano MD Unavailable Unavailable Girish Solorzano MD Unavailable Unavailable Girish Solorzano MD Unavailable Unavailable Girish Solorzano MD Unavailable Unavailable Girish Solorzano MD Unavailable Unavailable Girish Solorzano MD Unavailable Unavailable Girish Solorzano MD Unavailable Unavailable Girish Solorzano MD Unavailable Unavailable Girish Solorzano MD Unavailable Unavailable Girish Solorzano MD Unavailable Unavailable Girish Solorzano MD Unavailable Unavailable Girish Solorzano MD Unavailable Unavailable Girish Solorzano MD Unavailable Unavailable Girish Solorzano MD Unavailable Unavailable Girish Solorzano MD Unavailable Unavailable Girish Solorzano MD Unavailable Unavailable Girish Solorzano MD Unavailable Unavailable Girish Solorzano MD Unavailable Unavailable Girish Solorzano MD Unavailable Unavailable Girish Solorzano MD Unavailable Unavailable Girish Solorzano MD Unavailable Unavailable Girish Solorzano MD Unavailable Unavailable Girish Solorzano MD Unavailable Unavailable Girish Solorzano MD Unavailable Unavailable Girish Solorzano MD Unavailable Unavailable Girish Solorzano MD Unavailable Unavailable Girish Solorzano MD Unavailable Unavailable Girish Solorzano MD Unavailable Unavailable Girish Solorzano MD Unavailable Unavailable Girish Solorzano MD Unavailable Unavailable Girish Solorzano MD Unavailable Unavailable Girish Solorzano MD Unavailable Unavailable Girish Solorzano MD Unavailable Unavailable Girish Solorzano MD Unavailable Unavailable Girish Solorznao MD Unavailable Unavailable Girish Solorzano MD Unavailable Unavailable Girish Solorzano MD Unavailable Unavailable Girish Solorzano MD Unavailable Unavailable Girish Solorzano MD Unavailable Unavailable Girish Solorzano MD Unavailable Unavailable Girish Solorzano MD Unavailable Unavailable Girish Solorzano MD Unavailable Unavailable Girish Solorzano MD Unavailable Unavailable Girish Solorzano MD Unavailable Unavailable Girish Solorzano MD Unavailable Unavailable Girish Solorzano MD Unavailable Unavailable Girish Solorzano MD Unavailable Unavailable Girish Solorzano MD Unavailable Unavailable Girish Solorzano MD Unavailable Unavailable Girish Solorzano MD Unavailable Unavailable Girish Solorzano MD Unavailable Unavailable Girish Solorzano MD Unavailable Unavailable Girish Solorzano MD Unavailable Unavailable Girish Solorzano MD Unavailable Unavailable Girish Solorzano MD Unavailable Unavailable Girish Solorzano MD Unavailable Unavailable Girish Solorzano MD Unavailable Unavailable Girish Solorzano MD Unavailable Unavailable Girish Solorzano MD Unavailable Unavailable Girish Solorzano MD Unavailable Unavailable Girish Solorzano MD Unavailable Unavailable Girish Solorzano MD Unavailable Unavailable Girish Solorzano MD Unavailable Unavailable Girish Solorzano MD Unavailable Unavailable Girish Solorzano MD Unavailable Unavailable Girish Solorzano MD Unavailable Unavailable Jeanine, Girish Archer MD Unavailable Unavailable Jeanine, Girish Archer MD Unavailable Unavailable Jeanine, Girish Archer MD Unavailable Unavailable Jeanine, Girish Archer MD Unavailable Unavailable Girish Solorzano MD Unavailable Unavailable Girish Solorzano MD Unavailable Unavailable Jeanine, Girish Archer MD Unavailable Unavailable Jeanine, Girish Archer MD Unavailable Unavailable Girish Solorzano MD Unavailable Unavailable Jeanine, Girish Archer MD Unavailable Unavailable Jeanine, Girish Archer MD Unavailable Unavailable Girish Solorzano MD Unavailable Unavailable Jeanine, Girish Archer MD Unavailable Unavailable Jeanine, Girish Archer MD Unavailable Unavailable Girish Solorzano MD Unavailable Unavailable Jeanine, Girish Archer MD Unavailable Unavailable Solorzano, Girish Archer MD Unavailable Unavailable Overton, Norah CELL INSPECTOR Unavailable Unavailable Overton, Norah CELL INSPECTOR Unavailable Unavailable Overton, Norah CELL INSPECTOR Unavailable Unavailable Overton, Norah CELL INSPECTOR Unavailable Unavailable Overton, Norah CELL INSPECTOR Unavailable Unavailable Overton, Norah CELL INSPECTOR Unavailable Unavailable Overton, Norah CELL INSPECTOR Unavailable Unavailable Overton, Norah CELL INSPECTOR Unavailable Unavailable Overton, Norah CELL INSPECTOR Unavailable Unavailable Ovetron, Norah CELL INSPECTOR Unavailable Unavailable Overton, Norah CELL INSPECTOR Unavailable Unavailable Overton, Norah CELL INSPECTOR Unavailable Unavailable Overton, Norah CELL INSPECTOR Unavailable Unavailable CHOI, ZACH IGOR RPA-C Unavailable Unavailable CHOI, ZACH IGOR RPA-C Unavailable Unavailable CHOI, ZACH IGOR RPA-C Unavailable Unavailable HCOI, ZACH IGOR RPA-C Unavailable Unavailable CHOI, ZACH IGOR RPA-C Unavailable Unavailable CHOI, ZACH IGOR RPA-C Unavailable Unavailable CHOI, ZACH IGOR RPA-C Unavailable Unavailable CHOI, ZACH IGOR RPA-C Unavailable Unavailable CHOI, ZACH IGOR RPA-C Unavailable Unavailable CHOI, ZACH IGOR RPA-C Unavailable Unavailable CHOI, ZACH IGOR RPA-C Unavailable Unavailable CHOI, ZACH IGOR RPA-C Unavailable Unavailable CHOI, ZACH IGOR RPA-C Unavailable Unavailable CHOI, ZACH IGOR RPA-C Unavailable Unavailable CHOI, ZACH IGOR RPA-C Unavailable Unavailable CHOI, ZACH IGOR RPA-C Unavailable Unavailable CHOI, ZACH IGOR RPA-C Unavailable Unavailable CHOI, ZACH IGOR RPA-C Unavailable Unavailable CHOI, ZACH IGOR RPA-C Unavailable Unavailable CHOI, ZACH IGOR RPA-C Unavailable Unavailable CHOI, ZACH IGOR RPA-C Unavailable Unavailable CHOI, ZACH IGOR RPA-C Unavailable Unavailable CHOI, ZACH IGOR RPA-C Unavailable Unavailable CHOI, ZACH IGOR RPA-C Unavailable Unavailable CHOI, ZACH IGOR RPA-C Unavailable Unavailable CHOI, ZACH IGOR RPA-C Unavailable Unavailable CHOI, ZACH IGOR RPA-C Unavailable Unavailable CHOI, ZACH IGOR RPA-C Unavailable Unavailable CHOI, ZACH IGOR RPA-C Unavailable Unavailable CHOI, ZACH IGOR RPA-C Unavailable Unavailable CHOI, ZACH IGOR RPA-C Unavailable Unavailable CHOI, ZACH IGOR RPA-C Unavailable Unavailable CHOI, ZACH IGOR RPA-C Unavailable Unavailable CHOI, ZACH IGOR RPA-C Unavailable Unavailable CHOI, ZACH IGOR RPA-C Unavailable Unavailable CHOI, ZACH IGOR RPA-C Unavailable Unavailable CHOI, ZACH IGOR RPA-C Unavailable Unavailable CHOI, ZACH IGOR RPA-C Unavailable Unavailable CHOI, ZACH IGOR RPA-C Unavailable Unavailable CHOI, ZACH IGOR RPA-C Unavailable Unavailable CHOI, ZACH IGOR RPA-C Unavailable Unavailable CHOI, ZACH IGOR RPA-C Unavailable Unavailable CHOI, ZACH IGOR RPA-C Unavailable Unavailable CHOI, ZACH IGOR RPA-C Unavailable Unavailable CHOI, ZACH IGOR RPA-C Unavailable Unavailable CHOI, ZACH IGOR RPA-C Unavailable Unavailable CHOI, ZACH IGOR RPA-C Unavailable Unavailable CHOI, ZACH IGOR RPA-C Unavailable Unavailable CHOI, ZACH IGOR RPA-C Unavailable Unavailable CHOI, ZACH IGOR RPA-C Unavailable Unavailable CHOI, ZACH IGOR RPA-C Unavailable Unavailable CHOI, ZACH IGOR RPA-C Unavailable Unavailable CHOI, ZACH IGOR RPA-C Unavailable Unavailable CHOI, ZACH IGOR RPA-C Unavailable Unavailable CHOI, ZACH IGOR RPA-C Unavailable Unavailable CHOI, ZACH IGOR RPA-C Unavailable Unavailable CHOI, ZACH IGOR RPA-C Unavailable Unavailable CHOI, ZACH IGOR RPA-C Unavailable Unavailable CHOI, ZACH IGOR RPA-C Unavailable Unavailable CHOI, ZACH IGOR RPA-C Unavailable Unavailable CHOI, ZACH IGOR RPA-C Unavailable Unavailable CHOI, ZACH IGOR RPA-C Unavailable Unavailable CHOI, ZACH IGOR RPA-C Unavailable Unavailable CHOI, ZACH IGOR RPA-C Unavailable Unavailable CHOI, ZACH IGOR RPA-C Unavailable Unavailable CHOI, ZACH IGOR RPA-C Unavailable Unavailable CHOI, ZACH IGOR RPA-C Unavailable Unavailable CHOI, ZACH IGOR RPA-C Unavailable Unavailable CHOI, ZACH IGOR RPA-C Unavailable Unavailable CHOI, ZACH IGOR RPA-C Unavailable Unavailable CHOI, ZACH IGOR RPA-C Unavailable Unavailable CHOI, ZACH IGOR RPA-C Unavailable Unavailable CHOI, ZACH IGOR RPA-C Unavailable Unavailable CHOI, ZACH IGOR RPA-C Unavailable Unavailable CHOI, ZACH IGOR RPA-C Unavailable Unavailable CHOI, ZACH IGOR RPA-C Unavailable Unavailable CHOI, ZACH IGOR RPA-C Unavailable Unavailable CHOI, ZACH IGOR RPA-C Unavailable Unavailable CHOI, ZACH IGOR RPA-C Unavailable Unavailable CHOI, ZACH IGOR RPA-C Unavailable Unavailable CHOI, ZACH IGOR RPA-C Unavailable Unavailable CHOI, ZACH IGOR RPA-C Unavailable Unavailable CHOI, ZACH IGOR RPA-C Unavailable Unavailable CHOI, ZACH IGOR RPA-C Unavailable Unavailable CHOI, ZACH IGOR RPA-C Unavailable Unavailable CHOI, ZACH IGOR RPA-C Unavailable Unavailable LETTIERE, A BRYNN PA Unavailable Unavailable LETTIERE, A BRYNN PA Unavailable Unavailable LETTIERE, A BRYNN PA Unavailable Unavailable LETTIERE, A BRYNN PA Unavailable Unavailable LETTIERE, A BRYNN PA Unavailable Unavailable LETTIERE, A BRYNN PA Unavailable Unavailable LETTIERE, A BRYNN PA Unavailable Unavailable LETTIERE, A BRYNN PA Unavailable Unavailable LETTIERE, A BRYNN PA Unavailable Unavailable LETTIERE, A BRYNN PA Unavailable Unavailable LETTIERE, A BRYNN PA Unavailable Unavailable LETTIERE, A BRYNN PA Unavailable Unavailable LETTIERE, A BRYNN PA Unavailable Unavailable LETTIERE, A BRYNN PA Unavailable Unavailable LETTIERE, A BRYNN PA Unavailable Unavailable LETTIERE, A BRYNN PA Unavailable Unavailable LETTIERE, A BRYNN PA Unavailable Unavailable LETTIERE, A BRYNN PA Unavailable Unavailable LETTIERE, A BRYNN PA Unavailable Unavailable LETTIERE, A BRYNN PA Unavailable Unavailable LETTIERE, A BRYNN PA Unavailable Unavailable LETTIERE, A BRYNN PA Unavailable Unavailable LETTIERE, A BRYNN PA Unavailable Unavailable LETTIERE, A BRYNN PA Unavailable Unavailable LETTIERE, A BRYNN PA Unavailable Unavailable LETTIERE, A BRYNN PA Unavailable Unavailable LETTIERE, A BRYNN PA Unavailable Unavailable LETTIERE, A BRYNN PA Unavailable Unavailable LETTIERE, A BRYNN PA Unavailable Unavailable LETTIERE, A BRYNN PA Unavailable Unavailable LETTIERE, A BRYNN PA Unavailable Unavailable LUIS, CINTHIA PA Unavailable Unavailable LUIS, CINTHIA PA Unavailable Unavailable LUIS, CINTHIA PA Unavailable Unavailable LUIS, CINTHIA PA Unavailable Unavailable LUIS, CINTHIA PA Unavailable Unavailable LUIS, CINTHIA PA Unavailable Unavailable LUIS, CINTHIA PA Unavailable Unavailable LUIS, CINTHIA PA Unavailable Unavailable LUIS, CINTHIA PA Unavailable Unavailable LUIS, CINTHIA PA Unavailable Unavailable LUIS, CINTHIA PA Unavailable Unavailable LUIS, CINTHIA PA Unavailable Unavailable LUIS, CINTHIA PA Unavailable Unavailable LUIS, CINTHIA PA Unavailable Unavailable LUIS, CINTHIA PA Unavailable Unavailable LUIS, CINTHIA PA Unavailable Unavailable LUIS, CINTHIA PA Unavailable Unavailable LUIS, CINTHIA PA Unavailable Unavailable LUIS, CINTHIA PA Unavailable Unavailable LUIS, CINTHIA PA Unavailable Unavailable LUIS, CINTHIA PA Unavailable Unavailable LUIS, CINTHIA PA Unavailable Unavailable LUIS, CINTHIA PA Unavailable Unavailable LUIS, CINTHIA PA Unavailable Unavailable LUIS, CINTHIA PA Unavailable Unavailable LUIS, CINTHIA PA Unavailable Unavailable LUIS, CINTHIA PA Unavailable Unavailable LUIS, CINTHIA PA Unavailable Unavailable LUIS, CINTHIA PA Unavailable Unavailable LUIS, CINTHIA PA Unavailable Unavailable LUIS, CINTHIA PA Unavailable Unavailable LUIS, CINTHIA PA Unavailable Unavailable LUIS, CINTHIA PA Unavailable Unavailable LUIS, CINTHIA PA Unavailable Unavailable LUIS, CINTHIA PA Unavailable Unavailable LUIS, CINTHIA PA Unavailable Unavailable CHAMPION, BRYANT Unavailable Unavailable CHAMPION, BRYANT Unavailable Unavailable CHAMPION, BRYANT Unavailable Unavailable CHAMPION, BRYANT Unavailable Unavailable CHAMPION, BRYANT Unavailable Unavailable CHAMPION, BRYANT Unavailable Unavailable CHAMPION, BRYANT Unavailable Unavailable CHAMPION, BRYANT Unavailable Unavailable CHAMPION, BRYANT Unavailable Unavailable CHAMPION, BRYANT Unavailable Unavailable CHAMPION, BRYANT Unavailable Unavailable CHAMPION, BRYANT Unavailable Unavailable CHAMPION, BRYANT Unavailable Unavailable CHAMPION, BRYANT Unavailable Unavailable CHAMPION, BRYANT Unavailable Unavailable CHAMPION, BRYANT Unavailable Unavailable CHAMPION, BRYANT Unavailable Unavailable CHAMPION, BRYANT Unavailable Unavailable CHAMPION, BRYANT Unavailable Unavailable CHAMPION, BRYANT Unavailable Unavailable CHAMPION, BRYANT Unavailable Unavailable CHAMPION, BRYANT Unavailable Unavailable CHAMPION, BRYANT Unavailable Unavailable CHAMPION, BRYANT Unavailable Unavailable CHAMPION, BRYANT Unavailable Unavailable CHAMPION, BRYANT Unavailable Unavailable CHAMPION, BRYANT Unavailable Unavailable RING, K YG PA Unavailable Unavailable RING, K YG PA Unavailable Unavailable RING, K YG PA Unavailable Unavailable RING, K YG PA Unavailable Unavailable RING, K YG PA Unavailable Unavailable RING, K YG PA Unavailable Unavailable RING, K YG PA Unavailable Unavailable RING, K YG PA Unavailable Unavailable RING, K YG PA Unavailable Unavailable RING, K YG PA Unavailable Unavailable RING, K YG PA Unavailable Unavailable RING, K YG PA Unavailable Unavailable RING, K YG PA Unavailable Unavailable RING, K YG PA Unavailable Unavailable RING, K YG PA Unavailable Unavailable RING, K YG PA Unavailable Unavailable RING, K YG PA Unavailable Unavailable RING, K YG PA Unavailable Unavailable RING, K YG PA Unavailable Unavailable RING, K YG PA Unavailable Unavailable RING, K YG PA Unavailable Unavailable Shaista Fuentes MD Unavailable Unavailable Shaista Fuentes MD Unavailable Unavailable GinaShaista munoz MD Unavailable Unavailable Shaista Fuentes MD Unavailable Unavailable Gina O John LIANG Unavailable Unavailable Gina O John LIANG Unavailable Unavailable Gina O John LIANG Unavailable Unavailable Gina O John LIANG Unavailable Unavailable Gina O John LIANG Unavailable Unavailable Gina O John LIANG Unavailable Unavailable Gina O John LIANG Unavailable Unavailable Gina O John LIANG Unavailable Unavailable Gina O John LIANG Unavailable Unavailable GinaShaista noe MD Unavailable Unavailable Gina, O Samah MD Unavailable Unavailable Shaista Fuentes MD Unavailable Unavailable Shaista Fuentes MD Unavailable Unavailable Shaista Fuentes MD Unavailable Unavailable Shaista Fuentes MD Unavailable Unavailable Shaista Fuentes MD Unavailable Unavailable Shaista Fuentes MD Unavailable Unavailable Shaista Fuentes MD Unavailable Unavailable Shaista Fuentes MD Unavailable Unavailable Shaista Fuentes MD Unavailable Unavailable Shaista Fuentes MD Unavailable Unavailable Shaista Fuentes MD Unavailable Unavailable Shaista Fuentes MD Unavailable Unavailable Shaista Fuentes MD Unavailable Unavailable Shaista Fuentes MD Unavailable Unavailable Shaista Fuentes MD Unavailable Unavailable Shaista Fuentes MD Unavailable Unavailable Shaista Fuentes MD Unavailable Unavailable Shaista Fuentes MD Unavailable Unavailable Shaista Fuentes MD Unavailable Unavailable Shaista Fuentes MD Unavailable Unavailable Shaista Fuentes MD Unavailable Unavailable Shaista Fuentes MD Unavailable Unavailable Shaista Fuentes MD Unavailable Unavailable Shaista Fuentes MD Unavailable Unavailable Shaista Fuentes MD Unavailable Unavailable Shaista Fuentes MD Unavailable Unavailable Shaista Fuentes MD Unavailable Unavailable Shaista Fuentes MD Unavailable Unavailable Shaista Fuentes MD Unavailable Unavailable Shaista Fuentes MD Unavailable Unavailable Shaista Fuentes MD Unavailable Unavailable Shaista Fuentes MD Unavailable Unavailable Shaista Fuentes MD Unavailable Unavailable Shaista Fuentes MD Unavailable Unavailable Shaista Fuentes MD Unavailable Unavailable Shaista Fuentes MD Unavailable Unavailable Shaista Fuentes MD Unavailable Unavailable Shaista Fuentes MD Unavailable Unavailable Shaista Fuentes MD Unavailable Unavailable Shaista Fuentes MD Unavailable Unavailable Shaista Fuentes MD Unavailable Unavailable Shaista Fuentes MD Unavailable Unavailable Shaista Fuentes MD Unavailable Unavailable Shaista Fuentes MD Unavailable Unavailable Shaista Fuentes MD Unavailable Unavailable Shaista Fuentes MD Unavailable Unavailable Shaista Fuentes MD Unavailable Unavailable Shaista Fuentes MD Unavailable Unavailable Shaista Fuentes MD Unavailable Unavailable Shaista Fuentes MD Unavailable Unavailable Shaista Fuentes Unavailable Unavailable Shaista Fuentes Unavailable Unavailable Shaista Fuentes MD Unavailable Unavailable Shaista Fuentes MD Unavailable Unavailable Shaista Fuentes MD Unavailable Unavailable Shaista Fuentes MD Unavailable Unavailable Shaista Fuentes MD Unavailable Unavailable Shaista Fuentes MD Unavailable Unavailable Shaista Fuentes MD Unavailable Unavailable Shaista Fuentes MD Unavailable Unavailable Shaista Fuentes Unavailable Unavailable Shaista Fuentes Unavailable Unavailable Shaista Fuentes Unavailable Unavailable Shaista Fuentes MD Unavailable Unavailable ROSENBERG, M MAURICE PA Unavailable Unavailable ROSENBERG, M MAURICE PA Unavailable Unavailable ROSENBERG, M MAURICE PA Unavailable Unavailable ROSENBERG, M MAURICE PA Unavailable Unavailable ROSENBERG, M MAURICE PA Unavailable Unavailable ROSENBERG, M MAURICE PA Unavailable Unavailable ROSENBERG, M MAURICE PA Unavailable Unavailable ROSENBERG, M MAURICE PA Unavailable Unavailable ROSENBERG, M MAURICE PA Unavailable Unavailable ROSENBERG, M MAURICE PA Unavailable Unavailable ROSENBERG, M MAURICE PA Unavailable Unavailable ROSENBERG, M MAURICE PA Unavailable Unavailable ROSENBERG, M MAURICE PA Unavailable Unavailable ROSENBERG, M MAURICE PA Unavailable Unavailable ROSENBERG, M MAURICE PA Unavailable Unavailable ROSENBERG, M MAURICE PA Unavailable Unavailable ROSENBERG, M MAURICE PA Unavailable Unavailable ROSENBERG, M MAURICE PA Unavailable Unavailable ROSENBERG, M MAURICE PA Unavailable Unavailable ROSENBERG, M MAURICE PA Unavailable Unavailable ROSENBERG, M MAURICE PA Unavailable Unavailable ROSENBERG, M MAURICE PA Unavailable Unavailable ROSENBERG, M MAURICE PA Unavailable Unavailable ROSENBERG, M MAURICE PA Unavailable Unavailable ROSENBERG, M MAURICE PA Unavailable Unavailable ROSENBERG, M MAURICE PA Unavailable Unavailable ROSENBERG, M MAURICE PA Unavailable Unavailable ROSENBERG, M MAURICE PA Unavailable Unavailable ROSENBERG, M MAURICE PA Unavailable Unavailable ROSENBERG, M MAURICE PA Unavailable Unavailable ROSENBERG, M MAURICE PA Unavailable Unavailable ROSENBERG, M MAURICE PA Unavailable Unavailable ROSENBERGNas Unavailable Unavailable ROSENBERGNas Unavailable Unavailable ROSENBERGNas Unavailable Unavailable Re-disclosure Warning The records that you are about to access may contain information from federally-assisted alcohol or drug abuse programs. If such information is present, then the following federally mandated warning applies: This information has been disclosed to you from records protected by federal confidentiality rules (42 CFR part 2). The federal rules prohibit you from making any further disclosure of this information unless further disclosure is expressly permitted by the written consent of the person to whom it pertains or as otherwise permitted by 42 CFR part 2. A general authorization for the release of medical or other information is NOT sufficient for this purpose. The Federal rules restrict any use of the information to criminally investigate or prosecute any alcohol or drug abuse patient.The records that you are about to access may contain highly sensitive health information, the redisclosure of which is protected by Article 27-F of the [facility] Public Health law. If you continue you may have access to information: Regarding HIV / AIDS; Provided by facilities licensed or operated by the [facility] Office of Mental Health; or Provided by the [facility] Office for People With Developmental Disabilities. If such information is present, then the following [facility] mandated warning applies: This information has been disclosed to you from confidential records which are protected by state law. State law prohibits you from making any further disclosure of this information without the specific written consent of the person to whom it pertains, or as otherwise permitted by law. Any unauthorized further disclosure in violation of state law may result in a fine or penitentiary sentence or both. A general authorization for the release of medical or other information is NOT sufficient authorization for further disc losure. Encounters Encounter Providers Location Date Indications Data Source(s ) Outpatient Attender: YG Santoro Primary 09/17/2021 02:35:00 PM EDT [facility] ([facility]) Gianni Solorzano MD: [address] [place] [phone], Ph. Attender: Gianni Solorzano MD [facility] Medical 09/06/2021 12:00:00 AM EDT [facility] ([facility]) Outpatient Attender: MAURICE Weiner/Bisi/Benji/Rein dl 08/22/2021 04:00:00 PM EDT [facility] ([facility]) Outpatient Attender: BRYNN locoy 08/11/2021 12:25:00 PM EDT [facility] ([facility], [facility]) Igor Choi, RPA-C: [address], [place] [address], Ph. Attender: IGOR CHOI RPA-C [facility] Medical 08/08/2021 12:00:00 AM EDT [facility] ([facility]) Igor Choi RPA-C: [address], [place] [address], Ph. Attender: IGOR PARMARC [facility] Medical 08/08/2021 12:00:00 AM EDT [facility] ([facility]) Outpatient Attender: CINTHIA Buitrago ry 07/12/2021 09:10:00 AM EDT [facility] ([facility]) Outpatient Attender: MAURICE Weiner/Bisi/Benji/Rein dl 07/11/2021 10:30:00 AM EDT [facility] ([facility]) Gianni Solorzano MD: [address] [place] [phone], Ph. Attender: Gianni Solorzano MD [facility] Medical 07/10/2021 12:00:00 AM EDT [facility] ([facility]) Gianni Solorzano MD: [address] [place] [phone], Ph. Attender: Gianni Solorzano MD [facility] Medical 07/10/2021 12:00:00 AM EDT [facility] ([facility]) Gianni Solorzano MD: [address] [place] [phone], Ph. Attender: Gianni Solorzano MD [facility] Medical 07/10/2021 12:00:00 AM EDT [facility] ([facility]) Outpatient Attender: John Fuentes MD Main office - [facility] 06/22/2021 09:00:00 AM EDT [facility] ([facility]) Outpatient Attender: Norah lópez 06/19/2021 03:30:00 PM EDT [facility] ([facility]) Gianni Solorzano MD: [address] [place] [phone], Ph. Attender: Gianni Solorzano MD [facility] Medical 04/25/2021 12:00:00 AM EDT [facility] ([facility]) Gianni Solorzano MD: [address] [place] [phone], Ph. Attender: Gianni Sloorzano MD [facility] Medical 04/25/2021 12:00:00 AM EDT [facility] ([facility]) Gianni Solorzano MD: [address] [place] [phone], Ph. Attender: Gianni Solorzano MD [facility] Medical 04/25/2021 12:00:00 AM EDT [facility] ([facility]) Gianni Solorzano MD: [address] [place] [phone], Ph. Attender: Gianni Solorzano MD [facility] Medical 04/25/2021 12:00:00 AM EDT [facility] ([facility]) Gianni Solorzano MD: [address], [place] [address], Ph. Attender: Gianni Solorzano MD [facility] Medical 03/28/2021 12:00:00 AM EDT [facility] ([facility]) Gianni Solorzano MD: [address] [address], [address], [place] [address], Ph. Attender: Gianni Solorzano MD [facility] Medical 03/28/2021 12:00:00 AM EDT [place] ([facility]) Gianni Solorzano MD: [address], [address], [place] [address], Ph. Attender: Gianni Solorzano MD [facility] Medical 03/28/2021 12:00:00 AM EDT [place] ([facility]) Gianni Solorzano MD: [address], [address], [place] [address], Ph. Attender: Gianni Solorzano MD [facility] Medical 03/28/2021 12:00:00 AM EDT [place] ([facility]) Gianni Solorzano MD: [address], [address], [place] [address], Ph. Attender: Gianni Solorzano MD [facility] Medical 03/28/2021 12:00:00 AM EDT [place] ([facility]) Outpatient Attender: BRYNN Santoro Prim yu 03/14/2021 11:30:00 AM EDT [facility] ([facility]) Outpatient Attender: YG Santoro Primary 03/03/2021 11:20:00 AM EDT [facility] ([facility]) Outpatient Attender: YG Santoro Primary 03/01/2021 10:45:00 AM EDT [facility] ([facility]) Gianni Solorzano MD: [address], [address], [place] [address], Ph. Attender: Gianni Solorzano MD [facility] Medical 01/31/2021 12:00:00 AM EST [place] ([facility]) Gianni Solorzano MD: [address], [address], [place] [address], Ph. Attender: Gianni Solorzano MD [facility] Medical 01/31/2021 12:00:00 AM EST [place] ([facility]) Gianni Solorzano MD: [address], [address], [place] [address], Ph. Attender: Gianni Solorzano MD [facility] Medical 01/31/2021 12:00:00 AM EST [place] ([facility]) Gianni Solorzano MD: [address], [address], [place] [address], Ph. Attender: Gianni Solorzano MD [facility] Medical 01/31/2021 12:00:00 AM EST [place] ([facility]) Gianni Solorzano MD: [address], [address], [place] [address], Ph. Attender: Gianni Solorzano MD [facility] Medical 01/31/2021 12:00:00 AM EST [place] ([facility]) Gianni Solorzano MD: [address], [address], [place] [address], Ph. Attender: Gianni Solorzano MD [facility] Medical 01/31/2021 12:00:00 AM EST [place] ([facility]) Gianni Solorzano MD: [address], [address], [place] [address], Ph. Attender: Gianni Solorzano MD [facility] Medical 01/10/2021 12:00:00 AM EST [place] ([facility]) Gianni Solorzano MD: [address], [address], [place] [address], Ph. Attender: Gianni Solorzano MD [facility] Medical 01/10/2021 12:00:00 AM EST [place] ([facility]) Gianni Solorzano MD: [address], [address], [place] [address], Ph. Attender: Gianni Solorzano MD [facility] Medical 01/10/2021 12:00:00 AM EST [place] ([facility]) Gianni Solorzano MD: [address], [address], [place] [address], Ph. Attender: Gianni Solorzano MD [facility] Medical 01/10/2021 12:00:00 AM EST [place] ([facility]) Gianni Solorzano MD: [address], [address], [place] [address], Ph. Attender: Gianni Solorzano MD [facility] Medical 01/10/2021 12:00:00 AM EST [place] ([facility]) Gianni Solorzano MD: [address], [address], [place] [address], Ph. Attender: Gianni Solorzano MD [facility] Medical 01/10/2021 12:00:00 AM EST [place] ([facility]) Gianni Solorzano MD: [address], [address], [place] [address], Ph. Attender: Gianni Solorzano MD [facility] Medical 01/10/2021 12:00:00 AM EST [place] ([facility]) GHULAM De La CruzC: [address], [address], [place] [address], Ph. Attender: BRYANT CHAMPION [facility] Medical 12/22/2020 12:00:00 AM EST [place] ([facility]) Bryant Champion RPA-C: [address], [address], [place] [address], Ph. Attender: BRYANT CHAMPION [facility] Medical 12/22/2020 12:00:00 AM EST [place] ([facility]) GHULAM De La CruzC: [address], [address], [place] [address], Ph. Attender: BRYANT CHAMPION [facility] Medical 12/22/2020 12:00:00 AM EST [place] ([facility]) GHULAM De La CruzC: [address], [address], [place] [address], Ph. Attender: BRYANT CHAMPION [facility] Medical 12/22/2020 12:00:00 AM EST [place] ([facility]) GHULAM De La CruzC: [address], [address], [place] [address], Ph. Attender: BRYANT CHAMPION [facility] Medical 12/22/2020 12:00:00 AM EST [place] ([facility]) Bryant Chamipon RPA-C: [address], [address], [place] [address], Ph. Attender: BRYANT CHAMPION [facility] Medical 12/22/2020 12:00:00 AM EST [place] ([facility]) Bryant Champion RPA-C: [address], [address], [place] [address], Ph. Attender: BRYANT CHAMPION [facility] Medical 12/22/2020 12:00:00 AM TICO [facility] ([facility]) RAMONITA De La Cruz: [address], [address], [place] [address], Ph. Attender: BRYANT CHAMPION [facility] Medical 12/22/2020 12:00:00 AM TICO KIN[facility] ([facility]) Outpatient Attender: [facility] 07/28/2020 08:12:[address] [facility] Medications Medication Brand Name Start Date Product Form Dose Route Admi nistrative Instructions Pharmacy Instructions Status Indications Reaction Description Data Source(s) Promethazine Hydrochloride 12.5 MG Oral Tablet Promethazine HCL 09/17/2021 12:00:00 AM EDT ORAL active M [facility] ([facility]) Amoxicillin 875 MG Oral Tablet Amoxicillin 08/11/2021 12:00:00 AM EDT completed [facility] ([facility]) Loperamide Hydrochloride 2 MG Oral Tablet Loperamide HCL 07/12/2021 12:00:00 AM EDT ORAL completed [facility] ([facility]) Ondansetron 4 MG Disintegrating Oral Tablet Ondansetron 07/12/2021 12:00:00 AM EDT ORAL completed [facility] ([facility]) topiramate 100 MG Oral Tablet Topiramate 06/22/2021 12:00:00 AM EDT ORAL active [facility] ([facility] ) topiramate 25 MG Oral Tablet Topiramate 06/22/2021 12:00:00 AM EDT active [facility] ([facility] ) Miconazole Nitrate 100 MG Vaginal Suppository Miconazole 7 06/19/2021 12:00:00 AM EDT VAGINAL completed [facility] ([facility]) Clotrimazole 10 MG/ML Topical Cream Clotrimazole Anti-Fungal 06/19/2021 12:00:00 AM EDT completed [facility] ([facility]) Ondansetron 4 MG Oral Tablet Ondansetron HCL 03/14/2021 12:00:00 AM EDT completed [facility] ([facility]) Amoxicillin 875 MG Oral Tablet Amoxicillin 03/14/2021 12:00:00 AM EDT completed [facility] ([facility]) Methylprednisolone Methylprednisolone 03/03/2021 12:00:00 AM EDT completed [facility] ([facility]) sennosides, LONG-TERM 8.6 MG Oral Tablet [Beba a-Time] senna 8.6 mg tablet TAKE ONE TABLET BY MOUTH TWICE DAILY senna 8.6 mg tablet TAKE ONE TABLET BY M OUTH TWICE DAILY completed sennosides, LONG-TERM 8.6 MG Oral Tablet [Senna-Time] [facility]) Docusate Sodium 100 MG Oral Capsule [DOK ] DOK 100 mg capsule TAKE ONE CAPSULE BY MOUTH TWICE DAILY DOK 100 mg capsule TAKE ONE CAPSULE BY MOUTH TWICE DAILY completed docusate sodium 100 MG Oral Capsule [DOK] [facility]) Diphenhydramine Hydrochloride 50 MG Oral Capsule [Banophen] Banophen 50 mg capsule TAKE ONE CAPSULE BY MOUTH AT BEDTIME Banophen 50 mg capsule TAKE ONE CAPSULE BY MOUTH AT BEDTIME completed diphenhydramine hydrochloride 50 MG Oral Capsule [Banophen] [facility]) Diphenhydramine Hydrochloride 25 MG Oral Capsule [Banophen] Banophen 25 mg capsule TAKE THREE CAPSULES BY MOUTH AT BEDTIME Banophen 25 mg capsule TAKE THREE CAPSULES BY MOUTH AT BEDTIME com pleted diphenhydramine hydrochloride 25 MG Oral Capsule [Banophen] [facility]) Loperamide Hydrochloride 2 MG Oral Table t Anti-Diarrheal (loperamide) 2 mg tablet TAKE TWO TABLETS BY MOUTH ONCE, THEN TAKE ONE TABLET AFTER EACH LOOSE STOOL Anti-Diarrheal (loperamide) 2 mg tablet TAKE TWO TABLETS BY MOUTH ONCE, THEN TAKE ONE TABLET AFTER EACH LOOSE STOOL completed loperamide hydrochloride 2 MG Oral Tablet [facility]) Ibuprofen 800 MG Oral Tablet ibuprofen 8 00 mg tablet TAKE ONE TABLET BY MOUTH EVERY 8 HOURS NEEDED FOR PAIN LEVEL 6-10 ibuprofen 800 mg tablet TAKE ONE TABLET BY MOUTH EVERY 8 HOURS NEEDED FOR PAIN LEVEL 6-10 completed ibuprofen 800 MG Oral Tablet [facility] ([facility]) Omeprazole 20 MG Delayed Release Oral Ca psule omeprazole 20 mg capsule,delayed release TAKE ONE CAPSULE BY MOUTH ONCE DAILY omeprazole 20 mg capsule,delayed release TAKE ONE CAPSULE BY MOUTH ONCE DAILY completed omeprazole 20 MG Delayed Release Oral Capsule [place] ([facility]) methylprednisolone 4 mg tablets in a dos e pack TAKE DIRECTED PER PACKAGE INSTRUCTIONS [id number] completed me thylprednisolone 4 mg tablets in a dose pack [facility] ([facility]) Ibuprofen 800 MG Oral Tablet ibuprofen 8 00 mg tablet TAKE ONE TABLET BY MOUTH EVERY 8 HOURS NEEDED FOR PAIN LEVEL 6-10 ibuprofen 800 mg tablet TAKE ONE TABLET BY MOUTH EVERY 8 HOURS NEEDED FOR PAIN LEVEL 6-10 completed ibuprofen 800 MG Oral Tablet [facility] ([facility]) Omeprazole 20 MG Delayed Release Oral Ca psule omeprazole 20 mg capsule,delayed release TAKE ONE CAPSULE BY MOUTH ONCE DAILY omeprazole 20 mg capsule,delayed release TAKE ONE CAPSULE BY MOUTH ONCE DAILY completed omeprazole 20 MG Delayed Release Oral Capsule [place] ([facility]) Ibuprofen 800 MG Oral Tablet ibuprofen 8 00 mg tablet TAKE ONE TABLET BY MOUTH EVERY 8 HOURS NEEDED FOR PAIN LEVEL 6-10 ibuprofen 800 mg tablet TAKE ONE TABLET BY MOUTH EVERY 8 HOURS NEEDED FOR PAIN LEVEL 6-10 completed ibuprofen 800 MG Oral Tablet [facility] ([facility]) Diphenhydramine Hydrochloride 50 MG Oral Capsule [Banophen] Banophen 50 mg capsule TAKE ONE CAPSULE BY MOUTH AT BEDTIME Banophen 50 mg capsule TAKE ONE CAPSULE BY MOUTH AT BEDTIME completed diphenhydramine hydrochloride 50 MG Oral Capsule [Banophen] [place] ([facility]) Ondansetron 4 MG Disintegrating Oral Tab let ondansetron 4 mg disintegrating tablet DISSOLVE ONE TABLET ON THE TONGUE EVERY 6 TO 8 HOURS NEEDED FOR NAUSEA AND VOMITING ondansetron 4 mg disintegrating tablet D ISSOLVE ONE TABLET ON THE TONGUE EVERY 6 TO 8 HOURS NEEDED FOR NAUSEA AND VOMITING completed ondansetron 4 MG Disintegrating Oral Tablet [place] ([facility]) Amoxicillin 875 MG Oral Tablet amoxicillin 875 mg tabl et amoxicillin 875 mg tablet completed amoxicillin 875 MG Oral Tablet [facility] ([facility]) Metronidazole 500 MG Oral Tablet metroni dazole 500 mg tablet TAKE ONE TABLET BY MOUTH TWICE DAILY FOR SEVEN DAYS metronidazole 500 mg tablet TAKE ONE TAB LET BY MOUTH TWICE DAILY FOR SEVEN DAYS compl eted metronidazole 500 MG Oral Tablet [facility] ([facility]) Amoxicillin 875 MG / Clavulanate 125 MG Oral Tablet amoxicillin 875 mg-potassium clavulanate 125 mg tablet TAKE ONE TABLET BY MOUTH TWICE DAILY amoxicillin 875 mg-potassium clavulanate 125 mg tablet TAKE ONE TABLET BY MOUTH TWICE DAILY completed amoxicillin 875 MG / c lavulanate 125 MG Oral Tablet [place] ([facility]) Omeprazole 20 MG Delayed Release Oral Ca psule omeprazole 20 mg capsule,delayed release TAKE ONE CAPSULE BY MOUTH ONCE DAILY omeprazole 20 mg capsule,delayed release TAKE ONE CAPSULE BY MOUTH ONCE DAILY completed omeprazole 20 MG Delayed Release Oral Capsule [place] ([facility]) 24 HR Bupropion Hydrochloride 300 MG Ext ended Release Oral Tablet bupropion HCl XL 300 mg 24 hr tablet, extended release bupropion HCl XL 300 mg 24 hr tablet, extended release completed 24 HR bupropion hydrochloride 300 MG Extended Release Oral Tablet [place] ([facility]) Ibuprofen 800 MG Oral Tablet ibuprofen 8 00 mg tablet TAKE ONE TABLET BY MOUTH EVERY 8 HOURS NEEDED FOR PAIN LEVEL 6-10 ibuprofen 800 mg tablet TAKE ONE TABLET BY MOUTH EVERY 8 HOURS NEEDED FOR PAIN LEVEL 6-10 completed ibuprofen 800 MG Oral Tablet [facility] ([facility]) benzonatate 200 MG Oral Capsule benzonat ate 200 mg capsule TAKE ONE CAPSULE BY MOUTH THREE TIMES DAILY FOR 7 DAYS benzonatate 200 mg capsule TAKE ONE CAPS ULE BY MOUTH THREE TIMES DAILY FOR 7 DAYS completed benzonatate 200 MG Oral Capsule [place] ([facility]) benzonatate 200 MG Oral Capsule benzonat ate 200 mg capsule TAKE ONE CAPSULE BY MOUTH THREE TIMES DAILY FOR 7 DAYS benzonatate 200 mg capsule TAKE ONE CAPS ULE BY MOUTH THREE TIMES DAILY FOR 7 DAYS completed benzonatate 200 MG Oral Capsule [place] ([facility]) aripiprazole 2 MG Oral Tablet aripiprazo le 2 mg tablet TAKE ONE TABLET BY MOUTH ONCE DAILY aripiprazole 2 mg tablet TAKE ONE TABLET BY MOUTH ONCE DAILY completed aripiprazole 2 MG Oral Ta blet [place] ([facility]) 24 HR Bupropion Hydrochloride 150 MG Ext ended Release Oral Tablet bupropion HCl XL 150 mg 24 hr tablet, extended release bupropion HCl XL 150 mg 24 hr tablet, extended release completed 24 HR bupropion hydrochloride 150 MG Extended Release Oral Tablet [place] ([facility]) Amoxicillin 500 MG Oral Capsule amoxicil ethel 500 mg capsule TAKE ONE CAPSULE BY MOUTH EVERY 8 HOURS UNTIL GONE amoxicillin 500 mg capsule TAKE ONE CAPS ULE BY MOUTH EVERY 8 HOURS UNTIL GONE complet ed amoxicillin 500 MG Oral Capsule [place] ([facility]) Amoxicillin 875 MG Oral Tablet amoxicillin 875 mg tabl et amoxicillin 875 mg tablet completed amoxicillin 875 MG Oral Tablet [place] ([facility]) Amoxicillin 500 MG Oral Capsule amoxicil ethel 500 mg capsule TAKE ONE CAPSULE BY MOUTH EVERY 8 HOURS UNTIL GONE amoxicillin 500 mg capsule TAKE ONE CAPS ULE BY MOUTH EVERY 8 HOURS UNTIL GONE complet ed amoxicillin 500 MG Oral Capsule [place] ([facility]) Diphenhydramine Hydrochloride 25 MG Oral Tablet [facility] (diphenhydramine) 25 mg tablet TAKE ONE TABLET BY MOUTH AT BEDTIME [facility] (diphenhydramine) 25 mg tablet TAKE ONE TABLET BY MOUTH AT BEDTIME completed diphenhydramin e hydrochloride 25 MG Oral Tablet [place] ([facility]) aripiprazole 2 MG Oral Tablet aripiprazo le 2 mg tablet TAKE ONE TABLET BY MOUTH ONCE DAILY aripiprazole 2 mg tablet TAKE ONE TABLET BY MOUTH ONCE DAILY completed aripiprazole 2 MG Oral Ta blet [place] ([facility]) sennosides, LONG-TERM 8.6 MG Oral Tablet [Beba a-Time] senna 8.6 mg tablet TAKE ONE TABLET BY MOUTH TWICE DAILY senna 8.6 mg tablet TAKE ONE TABLET BY M OUTH TWICE DAILY completed sennosides, LONG-TERM 8.6 MG Oral Tablet [Senna-Time] [place] ([facility]) Docusate Sodium 100 MG Oral Capsule [DOK ] DOK 100 mg capsule TAKE ONE CAPSULE BY MOUTH TWICE DAILY DOK 100 mg capsule TAKE ONE CAPSULE BY MOUTH TWICE DAILY completed docusate sodium 100 MG Oral Capsule [DOK] [place] ([facility]) Diphenhydramine Hydrochloride 25 MG Oral Tablet [facility] (diphenhydramine) 25 mg tablet TAKE ONE TABLET BY MOUTH AT BEDTIME [facility] (diphenhydramine) 25 mg tablet TAKE ONE TABLET BY MOUTH AT BEDTIME completed diphenhydramin e hydrochloride 25 MG Oral Tablet [place] ([facility]) Amoxicillin 500 MG Oral Capsule amoxicil ethel 500 mg capsule TAKE ONE CAPSULE BY MOUTH EVERY 8 HOURS UNTIL GONE amoxicillin 500 mg capsule TAKE ONE CAPS ULE BY MOUTH EVERY 8 HOURS UNTIL GONE complet ed amoxicillin 500 MG Oral Capsule [facility]) 12 HR Bupropion Hydrochloride 100 MG Ext ended Release Oral Tablet [Wellbutrin] Wellbutrin SR 100 mg tablet, 12 hr sustained-release Take 1 tablet every day by oral route. Wellbutrin SR 100 mg tablet, 12 hr susta ined-release Take 1 tablet every day by oral route. 1 completed 12 HR bupropion hydrochloride 100 MG Extended Release Oral Tablet [Wellbutrin] [place] ([facility]) Diphenhydramine Hydrochloride 25 MG Oral Tablet [facility] (diphenhydramine) 25 mg tablet TAKE ONE TABLET BY MOUTH AT BEDTIME [facility] (diphenhydramine) 25 mg tablet TAKE ONE TABLET BY MOUTH AT BEDTIME completed diphenhydramin e hydrochloride 25 MG Oral Tablet [place] ([facility]) Omeprazole 20 MG Delayed Release Oral Ca psule omeprazole 20 mg capsule,delayed release TAKE ONE CAPSULE BY MOUTH ONCE DAILY omeprazole 20 mg capsule,delayed release TAKE ONE CAPSULE BY MOUTH ONCE DAILY completed omeprazole 20 MG Delayed Release Oral Capsule [place] ([facility]) Diphenhydramine Hydrochloride 25 MG Oral Tablet [facility] (diphenhydramine) 25 mg tablet TAKE ONE TABLET BY MOUTH AT BEDTIME [facility] (diphenhydramine) 25 mg tablet TAKE ONE TABLET BY MOUTH AT BEDTIME completed diphenhydramin e hydrochloride 25 MG Oral Tablet [place] ([facility]) Ibuprofen 800 MG Oral Tablet ibuprofen 8 00 mg tablet TAKE ONE TABLET BY MOUTH EVERY 8 HOURS NEEDED FOR PAIN LEVEL 6-10 ibuprofen 800 mg tablet TAKE ONE TABLET BY MOUTH EVERY 8 HOURS NEEDED FOR PAIN LEVEL 6-10 completed ibuprofen 800 MG Oral Tablet [facility] ([facility]) aripiprazole 2 MG Oral Tablet aripiprazo le 2 mg tablet TAKE ONE TABLET BY MOUTH ONCE DAILY aripiprazole 2 mg tablet TAKE ONE TABLET BY MOUTH ONCE DAILY completed aripiprazole 2 MG Oral Ta blet [place] ([facility]) Diphenhydramine Hydrochloride 25 MG Oral Capsule [Banophen] Banophen 25 mg capsule TAKE THREE CAPSULES BY MOUTH AT BEDTIME Banophen 25 mg capsule TAKE THREE CAPSULES BY MOUTH AT BEDTIME com pleted diphenhydramine hydrochloride 25 MG Oral Capsule [Banophen] [place] ([facility]) Diphenhydramine Hydrochloride 25 MG Oral Capsule [Banophen] Banophen 25 mg capsule TAKE THREE CAPSULES BY MOUTH AT BEDTIME Banophen 25 mg capsule TAKE THREE CAPSULES BY MOUTH AT BEDTIME com pleted diphenhydramine hydrochloride 25 MG Oral Capsule [Banophen] [place] ([facility]) aripiprazole 2 MG Oral Tablet aripiprazo le 2 mg tablet TAKE ONE TABLET BY MOUTH ONCE DAILY aripiprazole 2 mg tablet TAKE ONE TABLET BY MOUTH ONCE DAILY completed aripiprazole 2 MG Oral Ta blet [place] ([facility]) Omeprazole 20 MG Delayed Release Oral Ca psule omeprazole 20 mg capsule,delayed release TAKE ONE CAPSULE BY MOUTH ONCE DAILY omeprazole 20 mg capsule,delayed release TAKE ONE CAPSULE BY MOUTH ONCE DAILY completed omeprazole 20 MG Delayed Release Oral Capsule [place] ([facility]) Amoxicillin 500 MG Oral Capsule amoxicil ethel 500 mg capsule TAKE ONE CAPSULE BY MOUTH EVERY 8 HOURS UNTIL GONE amoxicillin 500 mg capsule TAKE ONE CAPS ULE BY MOUTH EVERY 8 HOURS UNTIL GONE complet ed amoxicillin 500 MG Oral Capsule [place] ([facility]) Diphenhydramine Hydrochloride 25 MG Oral Capsule [Banophen] Banophen 25 mg capsule TAKE THREE CAPSULES BY MOUTH AT BEDTIME Banophen 25 mg capsule TAKE THREE CAPSULES BY MOUTH AT BEDTIME com pleted diphenhydramine hydrochloride 25 MG Oral Capsule [Banophen] [place] ([facility]) Metronidazole 500 MG Oral Tablet metroni dazole 500 mg tablet TAKE ONE TABLET BY MOUTH TWICE DAILY FOR SEVEN DAYS metronidazole 500 mg tablet TAKE ONE TAB LET BY MOUTH TWICE DAILY FOR SEVEN DAYS compl eted metronidazole 500 MG Oral Tablet [place] ([facility]) Diphenhydramine Hydrochloride 25 MG Oral Capsule [Banophen] Banophen 25 mg capsule TAKE THREE CAPSULES BY MOUTH AT BEDTIME Banophen 25 mg capsule TAKE THREE CAPSULES BY MOUTH AT BEDTIME com pleted diphenhydramine hydrochloride 25 MG Oral Capsule [Banophen] [place] ([facility]) aripiprazole 5 MG Oral Tablet aripiprazo le 5 mg tablet TAKE 1/2 TABLET BY MOUTH EVERY MORNING aripiprazole 5 mg tablet TAKE 1/2 TABLET BY MOUTH EVERY MORN ING completed aripiprazole 5 MG Oral Tablet [place] ([facility]) Diphenhydramine Hydrochloride 50 MG Oral Capsule [Banophen] Banophen 50 mg capsule TAKE ONE CAPSULE BY MOUTH AT BEDTIME Banophen 50 mg capsule TAKE ONE CAPSULE BY MOUTH AT BEDTIME completed diphenhydramine hydrochloride 50 MG Oral Capsule [Banophen] [place] ([facility]) 24 HR Bupropion Hydrochloride 300 MG Ext ended Release Oral Tablet bupropion HCl XL 300 mg 24 hr tablet, extended release bupropion HCl XL 300 mg 24 hr tablet, extended release completed 24 HR bupropion hydrochloride 300 MG Extended Release Oral Tablet [place] ([facility]) Amoxicillin 500 MG Oral Capsule amoxicil ethel 500 mg capsule TAKE ONE CAPSULE BY MOUTH EVERY 8 HOURS UNTIL GONE amoxicillin 500 mg capsule TAKE ONE CAPS ULE BY MOUTH EVERY 8 HOURS UNTIL GONE complet ed amoxicillin 500 MG Oral Capsule [place] ([facility]) Amoxicillin 875 MG / Clavulanate 125 MG Oral Tablet amoxicillin 875 mg-potassium clavulanate 125 mg tablet TAKE ONE TABLET BY MOUTH TWICE DAILY amoxicillin 875 mg-potassium clavulanate 125 mg tablet TAKE ONE TABLET BY MOUTH TWICE DAILY completed amoxicillin 875 MG / c lavulanate 125 MG Oral Tablet [place] ([facility]) Amoxicillin 875 MG / Clavulanate 125 MG Oral Tablet amoxicillin 875 mg-potassium clavulanate 125 mg tablet TAKE ONE TABLET BY MOUTH TWICE DAILY amoxicillin 875 mg-potassium clavulanate 125 mg tablet TAKE ONE TABLET BY MOUTH TWICE DAILY completed amoxicillin 875 MG / c lavulanate 125 MG Oral Tablet [place] ([facility]) Amoxicillin 500 MG Oral Capsule amoxicil ethel 500 mg capsule TAKE ONE CAPSULE BY MOUTH EVERY 8 HOURS UNTIL GONE amoxicillin 500 mg capsule TAKE ONE CAPS ULE BY MOUTH EVERY 8 HOURS UNTIL GONE complet ed amoxicillin 500 MG Oral Capsule [place] ([facility]) olanzapine 5 MG Oral Tablet olanzapine 5 mg tablet TAKE ONE TABLET BY MOUTH AT BEDTIME olanzapine 5 mg tablet TAKE ONE TABLET BY MOUTH AT BEDTIME completed [facility] Diphenhydramine Hydrochloride 25 MG Oral Tablet [facility] (diphenhydramine) 25 mg tablet TAKE ONE TABLET BY MOUTH AT BEDTIME [facility] (diphenhydramine) 25 mg tablet TAKE ONE TABLET BY MOUTH AT BEDTIME completed diphenhydramin e hydrochloride 25 MG Oral Tablet [place] ([facility]) topiramate 100 MG Oral Tablet topiramate 100 mg tablet TAKE ONE TABLET BY MOUTH AT BEDTIME topiramate 100 mg tablet TAKE ONE TABLET BY MOUTH AT BEDTIME completed topiramate 100 MG Oral Ta blet [place] ([facility]) Metronidazole 500 MG Oral Tablet metroni dazole 500 mg tablet TAKE ONE TABLET BY MOUTH TWICE DAILY FOR SEVEN DAYS metronidazole 500 mg tablet TAKE ONE TAB LET BY MOUTH TWICE DAILY FOR SEVEN DAYS compl eted metronidazole 500 MG Oral Tablet [place] ([facility]) Ondansetron 4 MG Disintegrating Oral Tab let ondansetron 4 mg disintegrating tablet DISSOLVE ONE TABLET ON THE TONGUE EVERY 6 TO 8 HOURS NEEDED FOR NAUSEA AND VOMITING ondansetron 4 mg disintegrating tablet D ISSOLVE ONE TABLET ON THE TONGUE EVERY 6 TO 8 HOURS NEEDED FOR NAUSEA AND VOMITING completed ondansetron 4 MG Disintegrating Oral Tablet [place] ([facility]) Miconazole Nitrate 100 MG Vaginal Suppos itory miconazole nitrate 100 mg vaginal suppository insert ONE APPLICATORFUL into THE VAGINA AT BEDTIME FOR 7 DAYS miconazole nitrate 100 mg vaginal suppository insert ONE APPLICATORFUL into THE VAGINA AT BEDTIME FOR 7 DAYS completed miconazole nitrate 100 MG Vaginal Insert [place] ([facility]) aripiprazole 2 MG Oral Tablet aripiprazo le 2 mg tablet TAKE ONE TABLET BY MOUTH ONCE DAILY aripiprazole 2 mg tablet TAKE ONE TABLET BY MOUTH ONCE DAILY completed aripiprazole 2 MG Oral Ta blet [place] ([facility]) Amoxicillin 500 MG Oral Capsule amoxicil ethel 500 mg capsule TAKE ONE CAPSULE BY MOUTH EVERY 8 HOURS UNTIL GONE amoxicillin 500 mg capsule TAKE ONE CAPS ULE BY MOUTH EVERY 8 HOURS UNTIL GONE complet ed amoxicillin 500 MG Oral Capsule [place] ([facility]) Amoxicillin 875 MG / Clavulanate 125 MG Oral Tablet amoxicillin 875 mg-potassium clavulanate 125 mg tablet TAKE ONE TABLET BY MOUTH TWICE DAILY amoxicillin 875 mg-potassium clavulanate 125 mg tablet TAKE ONE TABLET BY MOUTH TWICE DAILY completed amoxicillin 875 MG / c lavulanate 125 MG Oral Tablet [place] ([facility]) Diphenhydramine Hydrochloride 50 MG Oral Capsule [Banophen] Banophen 50 mg capsule TAKE ONE CAPSULE BY MOUTH AT BEDTIME Banophen 50 mg capsule TAKE ONE CAPSULE BY MOUTH AT BEDTIME completed diphenhydramine hydrochloride 50 MG Oral Capsule [Banophen] [place] ([facility]) olanzapine 5 MG Oral Tablet olanzapine 5 mg tablet TAKE ONE TABLET BY MOUTH AT BEDTIME olanzapine 5 mg tablet TAKE ONE TABLET BY MOUTH AT BEDTIME completed olanzapine 5 MG Oral Tablet ATHE NA ([facility]) topiramate 100 MG Oral Tablet topiramate 100 mg tablet TAKE ONE TABLET BY MOUTH AT BEDTIME topiramate 100 mg tablet TAKE ONE TABLET BY MOUTH AT BEDTIME completed topiramate 100 MG Oral Ta blet [place] ([facility]) Diphenhydramine Hydrochloride 25 MG Oral Tablet [facility] Sleep Aid (diphenhydramine) 25 mg tablet TAKE ONE TABLET BY MOUTH AT BEDTIME [facility] Sleep Aid (diphenhydramine) 25 mg tablet TAKE ONE TABLET BY MOUTH AT BEDTIME completed diphenhydramin e hydrochloride 25 MG Oral Tablet [place] ([facility]) Ibuprofen 800 MG Oral Tablet ibuprofen 8 00 mg tablet TAKE ONE TABLET BY MOUTH EVERY 8 HOURS NEEDED FOR PAIN LEVEL 6-10 ibuprofen 800 mg tablet TAKE ONE TABLET BY MOUTH EVERY 8 HOURS NEEDED FOR PAIN LEVEL 6-10 completed ibuprofen 800 MG Oral Tablet ATH [facility] ([facility]) Amoxicillin 500 MG Oral Capsule amoxicil ethel 500 mg capsule TAKE ONE CAPSULE BY MOUTH EVERY 8 HOURS UNTIL GONE amoxicillin 500 mg capsule TAKE ONE CAPS ULE BY MOUTH EVERY 8 HOURS UNTIL GONE complet ed amoxicillin 500 MG Oral Capsule [place] ([facility]) sennosides, LONG-TERM 8.6 MG Oral Tablet [Beba a-Time] senna 8.6 mg tablet TAKE ONE TABLET BY MOUTH TWICE DAILY senna 8.6 mg tablet TAKE ONE TABLET BY M OUTH TWICE DAILY completed sennosides, LONG-TERM 8.6 MG Oral Tablet [Senna-Time] [place] ([facility]) Diphenhydramine Hydrochloride 50 MG Oral Capsule [Banophen] Banophen 50 mg capsule TAKE ONE CAPSULE BY MOUTH AT BEDTIME Banophen 50 mg capsule TAKE ONE CAPSULE BY MOUTH AT BEDTIME completed diphenhydramine hydrochloride 50 MG Oral Capsule [Banophen] [place] ([facility]) sennosides, LONG-TERM 8.6 MG Oral Tablet [Beba a-Time] senna 8.6 mg tablet TAKE ONE TABLET BY MOUTH TWICE DAILY senna 8.6 mg tablet TAKE ONE TABLET BY M OUTH TWICE DAILY completed sennosides, LONG-TERM 8.6 MG Oral Tablet [Senna-Time] [place] ([facility]) Amoxicillin 875 MG Oral Tablet amoxicillin 875 mg tabl et amoxicillin 875 mg tablet completed amoxicillin 875 MG Oral Tablet [place] ([facility]) Diphenhydramine Hydrochloride 25 MG Oral Capsule [Banophen] Banophen 25 mg capsule TAKE THREE CAPSULES BY MOUTH AT BEDTIME Banophen 25 mg capsule TAKE THREE CAPSULES BY MOUTH AT BEDTIME com pleted diphenhydramine hydrochloride 25 MG Oral Capsule [Banophen] [facility]) terbinafine 250 MG Oral Tablet terbinafi ne HCl 250 mg tablet TAKE ONE TABLET BY MOUTH ONCE DAILY terbinafine HCl 250 mg tablet TAKE ONE T ABLET BY MOUTH ONCE DAILY completed terbinafine 250 MG Oral Tablet [place] ([facility]) Omeprazole 20 MG Delayed Release Oral Ca psule omeprazole 20 mg capsule,delayed release TAKE ONE CAPSULE BY MOUTH ONCE DAILY omeprazole 20 mg capsule,delayed release TAKE ONE CAPSULE BY MOUTH ONCE DAILY completed omeprazole 20 MG Delayed Release Oral Capsule [place] ([facility]) Diphenhydramine Hydrochloride 50 MG Oral Capsule [Banophen] Banophen 50 mg capsule TAKE ONE CAPSULE BY MOUTH AT BEDTIME Banophen 50 mg capsule TAKE ONE CAPSULE BY MOUTH AT BEDTIME completed diphenhydramine hydrochloride 50 MG Oral Capsule [Banophen] [place] ([facility]) Diphenhydramine Hydrochloride 25 MG Oral Capsule [Banophen] Banophen 25 mg capsule TAKE THREE CAPSULES BY MOUTH AT BEDTIME Banophen 25 mg capsule TAKE THREE CAPSULES BY MOUTH AT BEDTIME com pleted diphenhydramine hydrochloride 25 MG Oral Capsule [Banophen] [place] ([facility]) Miconazole Nitrate 100 MG Vaginal Suppos itory miconazole nitrate 100 mg vaginal suppository insert ONE APPLICATORFUL into THE VAGINA AT BEDTIME FOR 7 DAYS miconazole nitrate 100 mg vaginal suppository insert ONE APPLICATORFUL into THE VAGINA AT BEDTIME FOR 7 DAYS completed miconazole nitrate 100 MG Vaginal Insert [place] ([facility]) Amoxicillin 875 MG Oral Tablet amoxicill in 875 mg tablet TAKE ONE TABLET BY MOUTH EVERY TWELVE HOURS FOR 10 DAYS amoxicillin 875 mg tablet TAKE ONE TABLE T BY MOUTH EVERY TWELVE HOURS FOR 10 DAYS completed amoxicillin 875 MG Oral Tablet [place] ([facility]) Loperamide Hydrochloride 2 MG Oral Table t Anti-Diarrheal (loperamide) 2 mg tablet TAKE TWO TABLETS BY MOUTH ONCE, THEN TAKE ONE TABLET AFTER EACH LOOSE STOOL Anti-Diarrheal (loperamide) 2 mg tablet TAKE TWO TABLETS BY MOUTH ONCE, THEN TAKE ONE TABLET AFTER EACH LOOSE STOOL completed loperamide hydrochloride 2 MG Oral Tablet [place] ([facility]) Omeprazole 20 MG Delayed Release Oral Ca psule omeprazole 20 mg capsule,delayed release TAKE ONE CAPSULE BY MOUTH ONCE DAILY omeprazole 20 mg capsule,delayed release TAKE ONE CAPSULE BY MOUTH ONCE DAILY completed omeprazole 20 MG Delayed Release Oral Capsule [place] ([facility]) terbinafine 250 MG Oral Tablet terbinafi ne HCl 250 mg tablet TAKE ONE TABLET BY MOUTH ONCE DAILY terbinafine HCl 250 mg tablet TAKE ONE T ABLET BY MOUTH ONCE DAILY completed terbinafine 250 MG Oral Tablet [place] ([facility]) Diphenhydramine Hydrochloride 25 MG Oral Tablet [facility] Sleep Aid (diphenhydramine) 25 mg tablet TAKE ONE TABLET BY MOUTH AT BEDTIME [facility] Sleep Aid (diphenhydramine) 25 mg tablet TAKE ONE TABLET BY MOUTH AT BEDTIME completed diphenhydramin e hydrochloride 25 MG Oral Tablet [place] ([facility]) Diphenhydramine Hydrochloride 25 MG Oral Tablet [facility] Sleep [facility] (diphenhydramine) 25 mg tablet TAKE ONE TABLET BY MOUTH AT BEDTIME [facility] Sleep Aid (diphenhydramine) 25 mg tablet TAKE ONE TABLET BY MOUTH AT BEDTIME completed diphenhydramin e hydrochloride 25 MG Oral Tablet [place] ([facility]) Diphenhydramine Hydrochloride 50 MG Oral Capsule [Banophen] Banophen 50 mg capsule TAKE ONE CAPSULE BY MOUTH AT BEDTIME Banophen 50 mg capsule TAKE ONE CAPSULE BY MOUTH AT BEDTIME completed diphenhydramine hydrochloride 50 MG Oral Capsule [Banophen] [place] ([facility]) Metronidazole 500 MG Oral Tablet metroni dazole 500 mg tablet TAKE ONE TABLET BY MOUTH TWICE DAILY FOR SEVEN DAYS metronidazole 500 mg tablet TAKE ONE TAB LET BY MOUTH TWICE DAILY FOR SEVEN DAYS compl eted metronidazole 500 MG Oral Tablet [place] ([facility]) Metronidazole 500 MG Oral Tablet metroni dazole 500 mg tablet TAKE ONE TABLET BY MOUTH TWICE DAILY FOR SEVEN DAYS metronidazole 500 mg tablet TAKE ONE TAB LET BY MOUTH TWICE DAILY FOR SEVEN DAYS compl eted metronidazole 500 MG Oral Tablet [place] ([facility]) Metronidazole 500 MG Oral Tablet metroni dazole 500 mg tablet TAKE ONE TABLET BY MOUTH TWICE DAILY FOR SEVEN DAYS metronidazole 500 mg tablet TAKE ONE TAB LET BY MOUTH TWICE DAILY FOR SEVEN DAYS compl eted metronidazole 500 MG Oral Tablet [place] ([facility]) Metronidazole 500 MG Oral Tablet metroni dazole 500 mg tablet TAKE ONE TABLET BY MOUTH TWICE DAILY FOR SEVEN DAYS metronidazole 500 mg tablet TAKE ONE TAB LET BY MOUTH TWICE DAILY FOR SEVEN DAYS compl eted metronidazole 500 MG Oral Tablet [place] ([facility]) aripiprazole 2 MG Oral Tablet aripiprazo le 2 mg tablet TAKE ONE TABLET BY MOUTH ONCE DAILY aripiprazole 2 mg tablet TAKE ONE TABLET BY MOUTH ONCE DAILY completed aripiprazole 2 MG Oral Ta blet [place] ([facility]) Diphenhydramine Hydrochloride 50 MG Oral Capsule [Banophen] Banophen 50 mg capsule TAKE ONE CAPSULE BY MOUTH AT BEDTIME Banophen 50 mg capsule TAKE ONE CAPSULE BY MOUTH AT BEDTIME completed diphenhydramine hydrochloride 50 MG Oral Capsule [Banophen] [place] ([facility]) aripiprazole 2 MG Oral Tablet aripiprazo le 2 mg tablet TAKE ONE TABLET BY MOUTH ONCE DAILY aripiprazole 2 mg tablet TAKE ONE TABLET BY MOUTH ONCE DAILY completed aripiprazole 2 MG Oral Ta blet [place] ([facility]) aripiprazole 2 MG Oral Tablet aripiprazo le 2 mg tablet TAKE ONE TABLET BY MOUTH ONCE DAILY aripiprazole 2 mg tablet TAKE ONE TABLET BY MOUTH ONCE DAILY completed aripiprazole 2 MG Oral Ta blet [place] ([facility]) Ibuprofen 800 MG Oral Tablet ibuprofen 8 00 mg tablet TAKE ONE TABLET BY MOUTH EVERY 8 HOURS NEEDED FOR PAIN LEVEL 6-10 ibuprofen 800 mg tablet TAKE ONE TABLET BY MOUTH EVERY 8 HOURS NEEDED FOR PAIN LEVEL 6-10 completed ibuprofen 800 MG Oral Tablet ATH [facility] ([facility]) 24 HR Bupropion Hydrochloride 150 MG Ext ended Release Oral Tablet bupropion HCl XL 150 mg 24 hr tablet, extended release bupropion HCl XL 150 mg 24 hr tablet, extended release completed 24 HR bupropion hydrochloride 150 MG Extended Release Oral Tablet [place] ([facility]) Metronidazole 500 MG Oral Tablet metroni dazole 500 mg tablet TAKE ONE TABLET BY MOUTH TWICE DAILY FOR SEVEN DAYS metronidazole 500 mg tablet TAKE ONE TAB LET BY MOUTH TWICE DAILY FOR SEVEN DAYS compl eted metronidazole 500 MG Oral Tablet [place] ([facility]) aripiprazole 5 MG Oral Tablet aripiprazo le 5 mg tablet TAKE 1/2 TABLET BY MOUTH EVERY MORNING aripiprazole 5 mg tablet TAKE 1/2 TABLET BY MOUTH EVERY MORN ING completed aripiprazole 5 MG Oral Tablet [place] ([facility]) methylprednisolone 4 mg tablets in a dos e pack TAKE DIRECTED PER PACKAGE INSTRUCTIONS [id number] completed me thylprednisolone 4 mg tablets in a dose pack [place] ([facility]) Amoxicillin 875 MG / Clavulanate 125 MG Oral Tablet amoxicillin 875 mg-potassium clavulanate 125 mg tablet TAKE ONE TABLET BY MOUTH TWICE DAILY amoxicillin 875 mg-potassium clavulanate 125 mg tablet TAKE ONE TABLET BY MOUTH TWICE DAILY completed amoxicillin 875 MG / c lavulanate 125 MG Oral Tablet [place] ([facility]) Ibuprofen 800 MG Oral Tablet ibuprofen 8 00 mg tablet TAKE ONE TABLET BY MOUTH EVERY 8 HOURS NEEDED FOR PAIN LEVEL 6-10 ibuprofen 800 mg tablet TAKE ONE TABLET BY MOUTH EVERY 8 HOURS NEEDED FOR PAIN LEVEL 6-10 completed ibuprofen 800 MG Oral Tablet [facility] ([facility]) Amoxicillin 875 MG Oral Tablet amoxicillin 875 mg tabl et amoxicillin 875 mg tablet completed amoxicillin 875 MG Oral Tablet [place] ([facility]) 12 HR Bupropion Hydrochloride 100 MG Ext ended Release Oral Tablet [Wellbutrin] Wellbutrin SR 100 mg tablet, 12 hr sustained-release Take 1 tablet every day by oral route. Wellbutrin SR 100 mg tablet, 12 hr susta ined-release Take 1 tablet every day by oral route. 1 completed 12 HR bupropion hydrochloride 100 MG Extended Release Oral Tablet [Wellbutrin] [place] ([facility]) Omeprazole 20 MG Delayed Release Oral Ca psule omeprazole 20 mg capsule,delayed release TAKE ONE CAPSULE BY MOUTH ONCE DAILY omeprazole 20 mg capsule,delayed release TAKE ONE CAPSULE BY MOUTH ONCE DAILY completed omeprazole 20 MG Delayed Release Oral Capsule [place] ([facility]) Diphenhydramine Hydrochloride 25 MG Oral Capsule [Banophen] Banophen 25 mg capsule TAKE THREE CAPSULES BY MOUTH AT BEDTIME Banophen 25 mg capsule TAKE THREE CAPSULES BY MOUTH AT BEDTIME com pleted diphenhydramine hydrochloride 25 MG Oral Capsule [Banophen] [place] ([facility]) Insurance Providers Payer name Policy type / Coverage type Policy ID Covered constitution party ID Covered constitution party's relationship to calle Policy Calle Plan Information [facility] [place] [facility] [place] [facility] () Other 0 [id number] Family Dependent Sarah Shoaib 0 [facility] [place] [facility] [place] [facility] ([facility]) Other 0 [id number] Family Dependent Sarah Shoaib 0 [facility] [place] [facility] [place] [facility] ([facility]) Other 0 [id number] Family Dependent Sarah Shoaib 0 [facility] [place] [facility] [place] [facility] ([facility]) Other 0 [id number] Family Dependent Sarah Shoaib 0 [facility] [place] [facility] [place] [facility] ([facility]) Other 0 [id number] Family Dependent Sarah Shoaib 0 [facility] [place] [facility] [place] [facility] ([facility]) Other 0 [id number] Family Dependent Sarah Shoaib 0 [facility] () Other 0 [id number] Family Dependent Sarah Shoaib 0 [facility] () Other 0 [id number] Family Dependent Sarah Shoaib 0 [facility] [place] [facility] ([facility]) Other 0 [id number] Family Dependent Sarah Shoaib 0 [facility] [place] [facility] [place] [facility] ([facility]) Other 0 [id number] Family Dependent Sarah Shoaib 0 [facility] [place] [facility] [place] [facility] ([facility]) Other 0 [id number] Family Dependent Sarah Shoaib 0 [facility] [place] [facility] [place] [facility] ([facility]) Other 0 [id number] Family Dependent Sarah Shoaib 0 [place] P [id number] P [id number] [place] of [place] Other 0 [id number] Self 0 [place] Other 0 [id number] Self 0 [place] Other 0 [id number] Self 0 [place] Other 0 [id number] Self 0 [place] Other 0 [id number] Self 0 [place] Other 0 [id number] Self 0 [place] Other 0 [id number] Self 0 [place] Other 0 [id number] Self 0 [place] Other 0 [id number] Self 0 [place] Other 0 [id number] Self 0 [place] Other 0 [id number] Self 0 [place] Other 0 [id number] Self 0 [place] Other 0 [id number] Self 0 [place] Other 0 [id number] Self 0 [employer] [place] Other 0 [id number] Self 0 [employer] [place] Other 0 [id number] Self 0 [employer] [place] Other 0 [id number] Self 0 [id number] [facility] O [id number] S [id number] [facility] P UNAVAILABLE S UNAVAILABLE Medicaid S UNAVAILABLE S UNAVAILA BLE [place] P MICHI [id number] SP [id number] MV [id number] SP [id number] ANSI-Not a Secondary Insurance [id number] ANSI-Not a Secondary Insurance [id number] ANSI-Not a Secondary Insurance [id number] ANSI-Not a Secondary Insurance [id number] [facility] [id number] SP [id number] MEDICAID [id number] SP [id number] ANSI-Not a Secondary Insurance [id number] ANSI-Not a Secondary Insurance [id number] ANSI-Not a Secondary Insurance [id number] [facility] [id number] SP [id number] [place]UL[facility] [id number] SP [id number] [address] [facility] [id number] FA2 [id number] [facility] [id number] FA2 [id number] [facility] P [id number] S [id number] Medicaid S [id number] S [id number] MEDICAID [id number] SP [id number] [place] [id number] SP DH [id number] [facility] [id number] SP [id number] [facility] [id number] FA2 [id number] HEA [id number] P [id number] SELF PAY HEA UNAVAILABLE UNAVAILA BLE [facility] [id number] FA2 [id number] [facility] [id number] SP [id number] Problems, Conditions, and Diagnoses Code Display Name Description Problem Type Effective Dates Data Source(s) 14772075 Eczema Eczema Problem 09/06/2021 12:00:00 AM ED Etta KINNEY ([facility]) G47.33 Obstructive sleep apnea syndrome Obstructive sle ep apnea syndrome Problem 08/22/2021 12:00:00 AM EDT [place] ([facility]) 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 Central sleep apnea syndr ome Problem 08/22/2021 12:00:00 AM EDT [place] ([facility]) [id number] Amenorrhea Amenorrhea Problem 07/10/2021 12:00:00 AM ED Etta KINNEY ([facility]) [id number] Amenorrhea Amenorrhea Problem 07/10/2021 12:00:00 AM ED Etta KINNEY ([facility]) [id number] Amenorrhea Amenorrhea Problem 07/10/2021 12:00:00 AM ED T [place] ([facility]) [id number] Migraine Migraine Problem 06/22/2021 12:00:00 AM ED T [place] ([facility]) [id number] Tobacco user Tobacco User Problem 04/25/2021 12:00:00 A M EDT [place] ([facility]) [id number] Tobacco user Tobacco User Problem 04/25/2021 12:00:00 A M EDT [place] ([facility]) [id number] Tobacco user Tobacco User Problem 04/25/2021 12:00:00 A M EDT [place] ([facility]) [id number] Tobacco user Tobacco User Problem 04/25/2021 12:00:00 A M EDT [place] ([facility]) [id number] Eczema of scalp Eczema of Scalp Problem 021 12:00:00 AM EDT [place] ([facility]) [id number] Migraine Migraine Problem 03/28/2021 12:00:00 AM ED T [place] ([facility]) [id number] Eczema of scalp Eczema of Scalp Problem 021 12:00:00 AM EDT [place] ([facility]) [id number] Migraine Migraine Problem 03/28/2021 12:00:00 AM ED T [place] ([facility]) [id number] Eczema of scalp Eczema of Scalp Problem 021 12:00:00 AM EDT [place] ([facility]) [id number] Migraine Migraine Problem 03/28/2021 12:00:00 AM ED T [place] ([facility]) [id number] Eczema of scalp Eczema of Scalp Problem 021 12:00:00 AM EDT [place] ([facility]) [id number] Migraine Migraine Problem 03/28/2021 12:00:00 AM ED T [place] ([facility]) [id number] Eczema of scalp Eczema of Scalp Problem 021 12:00:00 AM EDT [place] ([facility]) [id number] Migraine Migraine Problem 03/28/2021 12:00:00 AM ED T [place] ([facility]) [id number] Tinea capitis Tinea Capitis Problem 01/31/2021 12 :00:00 AM EST - 03/28/2021 12:00:00 AM EDT [place] ([facility]) [id number] Tinea capitis Tinea Capitis Problem 01/31/2021 12 :00:00 AM EST - 03/28/2021 12:00:00 AM EDT [place] ([facility]) [id number] Tinea capitis Tinea Capitis Problem 01/31/2021 12 :00:00 AM EST - 03/28/2021 12:00:00 AM EDT [place] ([facility]) [id number] Tinea capitis Tinea Capitis Problem 01/31/2021 12 :00:00 AM EST - 03/28/2021 12:00:00 AM EDT [place] ([facility]) [id number] Tinea capitis Tinea Capitis Problem 01/31/2021 12 :00:00 AM EST - 03/28/2021 12:00:00 AM EDT [place] ([facility]) [id number] Tinea capitis Tinea Capitis Problem 01/31/2021 12:00:00 AM EST [place] ([facility]) [id number] Fatigue Fatigue Problem 01/10/2021 12:00:00 AM ES Etta KINNEY ([facility]) [id number] Obstructive sleep apnea syndrome Obstructive Sle ep Apnea Syndrome Problem 01/10/2021 12:00:00 AM EST [place] ([facility]) [id number] Fatigue Fatigue Problem 01/10/2021 12:00:00 AM ES T [place] ([facility]) [id number] Obstructive sleep apnea syndrome Obstructive Sle ep Apnea Syndrome Problem 01/10/2021 12:00:00 AM EST [place] ([facility]) [id number] Fatigue Fatigue Problem 01/10/2021 12:00:00 AM ES Etta KINNEY ([facility]) [id number] Obstructive sleep apnea syndrome Obstructive Sle ep Apnea Syndrome Problem 01/10/2021 12:00:00 AM EST [place] ([facility]) [id number] Fatigue Fatigue Problem 01/10/2021 12:00:00 AM PADMA KINNEY ([facility]) [id number] Obstructive sleep apnea syndrome Obstructive Sle ep Apnea Syndrome Problem 01/10/2021 12:00:00 AM TICO KINNEY ([facility]) [id number] Fatigue Fatigue Problem 01/10/2021 12:00:00 AM PADMA KINNEY ([facility]) [id number] Obstructive sleep apnea syndrome Obstructive Sle ep Apnea Syndrome Problem 01/10/2021 12:00:00 AM EST [place] ([facility]) [id number] Fatigue Fatigue Problem 01/10/2021 12:00:00 AM PADMA KINNEY ([facility]) [id number] Obstructive sleep apnea syndrome Obstructive Sle ep Apnea Syndrome Problem 01/10/2021 12:00:00 AM TICO KINNEY ([facility]) [id number] Fatigue Fatigue Problem 01/10/2021 12:00:00 AM PADMA KINNEY ([facility]) [id number] Obstructive sleep apnea syndrome Obstructive Sle ep Apnea Syndrome Problem 01/10/2021 12:00:00 AM EST [place] ([facility]) [id number] Clinical finding Clinical Finding Problem 12:00:00 AM EDT - 08/08/2021 12:00:00 AM EDT [place] ([facility]) [id number] Body measurement finding Body Measurement Finding Prob bety 05/03/2020 12:00:00 AM EDT - 08/08/2021 12:00:00 AM EDT [place] ([facility]) [id number] Clinical finding Clinical Finding Problem 020 12:00:00 AM EDT - 08/08/2021 12:00:00 AM EDT [place] ([facility]) [id number] Body measurement finding Body Measurement Finding Prob bety 05/03/2020 12:00:00 AM EDT - 08/08/2021 12:00:00 AM EDT [place] ([facility]) Surgeries/Procedures Procedure Description Date Indications Data Source(s) OFFICE OUTPATIENT VISIT 25 MINUTES 09/17/2021 12:00:00 AM EDEtta LUGO ([facility], [facility]) OFFICE OUTPATIENT VISIT 15 MINUTES 08/22/2021 12:00:00 AM EDT [facility] ([facility], ) OFFICE OUTPATIENT VISIT 15 MINUTES 08/11/2021 12:00:00 AM EDT [facility] ([facility], [facility]) OFFICE OUTPATIENT NEW 30 MINUTES 07/12/2021 12:00:00 A M EDT [facility] ([facility], [facility]) OFFICE OUTPATIENT VISIT 15 MINUTES 07/12/2021 12:00:00 AM EDT [facility] ([facility], [facility]) OFFICE OUTPATIENT NEW 30 MINUTES 07/11/2021 12:00:00 A M EDT [facility] ([facility], ) Magnetic Resonance Angiogtaphy Head W/O Contrast Material(S) 07/06/2021 12:00:00 AM EDT [facility] ([facility], ) Magnetic Resonance Angiogtaphy Head W/O Contrast Material(S) 07/06/2021 12:00:00 AM EDT [facility] ([facility] ) MRI BRAIN BRAIN STEM W/O CONTRAST MATERIAL 07/06/2021 12:00:00 AM EDT [facility] ([facility], ) MRI BRAIN BRAIN STEM W/O CONTRAST MATERIAL 07/06/2021 12:00:00 AM EDT [facility] ([facility], ) OFFICE OUTPATIENT NEW 45 MINUTES 06/22/2021 12:00:00 A M EDT MEDENT ([facility], ) OFFICE OUTPATIENT VISIT 15 MINUTES 06/19/2021 12:00:00 AM EDT MED[facility] ([facility] [place], [facility]) OFFICE OUTPATIENT VISIT 15 MINUTES 03/14/2021 12:00:00 AM EDT MEDENT ([facility], [facility]) OFFICE OUTPATIENT VISIT 15 MINUTES 03/03/2021 12:00:00 AM EDT MEDENT ([facility], [facility]) OFFICE OUTPATIENT NEW 30 MINUTES 03/01/2021 12:00:00 A M EDT MEDENT ([facility], [facility]) Results ID Date Data Source [id number] 09/18/2021 01:04:00 PM EDT MEDENT ([facility]) Name Value Range Interpretation Code Description Data Arlen rce(s) Supporting Document(s) Erythrocyte sedimentation rate by 2H Westergren method 20 mm/hr 0-2 0 MEDENT ([facility], [facility]) Helicobacter pylori IgM Ab [Units/volume] in Serum Laborator y test result 0.0-8.9 MEDENT ([facility]) <content>Negative <9.0</content >
<content>Equivocal 9.0 - 11.0</content>
<content>Positive >11.0</content>
<content>.</content>
<content>.</content>
<content>This test was developed and its performance characteristics</content>
<content>determined by [facility]. It has not been cleared or</content>
<content>approved by the Food and Drug Admin istration.</content>
<content>Performed at: - [facility]</content>
<content>[address] [place] [address] [phone]</content>
<content>Interpreter: Paola Chavez MD, Phone: [phone]</content>
<content></content> Lipoprotein lipase [Enzymatic activity/volume] in Serum or Plasm a 46 U/L 73-393 MEDENT ([facility], [facility]) C reactive protein [Mass/volume] in Serum or Plasma by High sensitivity method 0.41 mg/dL 0.00-0.30 MED[facility] ([facility], [facility]) ID Date Data Source [id number] 09/18/2021 01:04:00 PM EDT MEDENT ([facility], [facility]) Name Value Range Interpretation Code Description Data Arlen rce(s) Supporting Document(s) Glucose, Fasting 100 mg/dL 70-100 MED[facility] ([facility], [facility]) Blood Urea Nitrogen 13 mg/dL 7-18 MED[facility] ([facility], [facility]) Glomerular Filtration Rate Laboratory test result MEDENT ([facility], [facility]) <content>Units are mL/min/1.73 m2</content>
<content></content>
<content>Chronic Kidney Disease Staging per NKF:</content>
<content></content>
<content>Stage I & II GFR >=60 Normal to Mildly Decreased</content>
<content>Stage III GFR 30- 59 Moderately Decreased</content>
<content>Stage IV GFR 15-29 Severely Decreased</content>
<content>Stage V GFR <15 Very Little GFR Left</content>
<content>ESRD GFR <15 on COST CLERK</content>
<content></content> Creatinine For GFR 1.05 mg/dL 0.55-1.30 MEDENT ([facility] [place], [facility]) Potassium Serum 4.2 meq/L 3.5-5.1 MEDENT ([facility] [place], [facility]) Sodium Level 137 meq/L 136-145 MED[facility] ([facility], [facility]) Chloride Level 106 meq/L 98-107 MEDENT ([facility], [facility]) Carbon Dioxide Level 29 meq/L 21-32 MEDENT ([facility] [place], [facility]) Calcium Level 9.4 mg/dL 8.5-10.1 MED[facility] ([facility], [facility]) Anion Gap 2 meq/L 8-16 MED[facility] ([facility], [facility]) Ast/Sgot 13 U/L 7-37 MED[facility] ([facility], [facility]) Alt/SGPT 19 U/L 12-78 MED[facility] ([facility], [facility]) Alkaline Phosphatase 88 U/L 45-117 [facility] ( [facility] [place], [facility]) Total Protein 8.3 GM/DL 6.4-8.2 MED[facility] ([facility], [facility]) Bilirubin,Total 0.7 mg/dL 0.2-1.0 MEDENT ([facility] [place], [facility]) Albumin 4.1 GM/DL 3.2-5.2 MED[facility] ([facility], [facility]) Albumin/Globulin Ratio 1.0 1.2-2.2 MED[facility] ([facility], [facility]) ID Date Data Source [id number] 09/18/2021 01:04:00 PM EDT MEDENT ([facility], [facility]) Name Value Range Interpretation Code Description Data Arlen rce(s) Supporting Document(s) White Blood Count 7.6 10 4.0-10.0 MED[facility] ([facility]) Hematocrit 40.2 % 36.0-47.0 [facility] ([facility] Red Blood Count 4.39 10 4.00-5.40 MED[facility] ([facility]) Hemoglobin 13.1 g/dL 12.0-15.5 [facility] ([facility]) Mean Corpuscular Hemoglobin 29.8 pg 27.0-33.0 MED[facility] ([facility], [facility]) Mean Corpuscular HGB Conc 32.6 g/dL 32.0-36.5 MEDENT ([facility] [place], [facility]) Mean Corpuscular Volume 91.6 fl 80.0-96.0 M EDENT ([facility], [facility]) Platelet Count, Automated 364 10 150-450 MED[facility] ([facility], [facility]) Red Cell Distribution Width 13.0 % 11.5-14.5 MED[facility] ([facility]) Neutrophils % 55.2 % 36.0-66.0 MEDENT ([facility]) Lymph % 36.5 % 24.0-44.0 MED[facility] ([facility] [place] % 7.3 % 2.0-8.0 MED[facility] ([facility] Baso % 0.5 % 0.0-1.0 MED[facility] ([facility] Eos % 0.4 % 0.0-3.0 MED[facility] ([facility]) Immature Granulocyte % 0.1 % 0-3.0 MEDENT ([facility] [place]) Nucleated Red Blood Cell % 0.0 % 0-0 MED ENT ([facility] [place]) Neutrophils # 4.2 10 1.5-8.5 MEDENT ([facility]) Lymph # 2.8 10 1.5-5.0 MEDENT ([facility]) [place] # 0.6 10 0.0-0.8 MED[facility] ([facility]) Eos # 0.0 10 0.0-0.5 MED[facility] ([facility]) Baso # 0.0 10 0.0-0.2 MED[facility] ([facility]) ID Date Data Source [id number] 09/18/2021 01:04:00 PM EDT MED[facility] ([facility]) Name Value Range Interpretation Code Description Data Arlen rce(s) Supporting Document(s) Erythrocyte sedimentation rate by 2H Westergren method 20 mm/hr 0-2 0 MED[facility] ([facility]) Lipoprotein lipase [Enzymatic activity/volume] in Serum or Plasm a 46 U/L 73-393 MED[facility] ([facility]) C reactive protein [Mass/volume] in Serum or Plasma by High sensitivity method 0.41 mg/dL 0.00-0.30 MED[facility] ([facility]) ID Date Data Source [id number] 09/18/2021 09:00:00 AM EDT MED[facility] ([facility]) Name Value Range Interpretation Code Description Data Arlen rce(s) Supporting Document(s) Gastrointestinal (GI) Panel Laboratory test result MEDENT ([facility]) This Gastrointestinal PCR Panel detects the following bacteria, parasites and viruses: [...] infection. NEGATIVE by MULTIPLEXED NUCLEIC ACID PCR ID Date Data Source [id number] 09/17/2021 06:04:00 PM EDT MED[facility] ([facility]) Name Value Range Interpretation Code Description Data Arlen rce(s) Supporting Document(s) Bacteria identified in Urine by Culture Laboratory test result MEDENT ([facility]) FULL REPORT IN LAB NOTES (eCW and Med[facility] ). SPECIMEN APPEARS CONTAMINATED ID Date Data Source [id number] 07/12/2021 09:54:00 AM EDT MED[facility] ([facility]) Name Value Range Interpretation Code Description Data Arlen rce(s) Supporting Document(s) Lipoprotein lipase [Enzymatic activity/volume] in Serum or Plasm a 49 U/L 73-393 [facility]) ID Date Data Source [id number] 07/12/2021 09:54:00 AM EDT MED[facility] ([facility]) Name Value Range Interpretation Code Description Data Arlen rce(s) Supporting Document(s) Glucose, Fasting 99 mg/dL 70-100 MED[facility] ([facility]) Blood Urea Nitrogen 12 mg/dL 7-18 MED[facility] ([facility]) Glomerular Filtration Rate Laboratory test result [facility] ([facility]) <content>Units are mL/min/1.73 m2</content>
<content></content>
<content>Chronic Kidney Disease Staging per NKF:</content>
<content></content>
<content>Stage I & II GFR >=60 Normal to Mildly Decreased</content>
<content>Stage III GFR 30-59 Moderately Decreased</content>
<content>Stage IV GFR 15-29 Severely Decreased</content>
<content>Stage V GFR <15 Very Little GFR Left</content>
<content>ESRD GFR <15 on COST CLERK</content>
<content></content> Sodium Level 138 meq/L 136-145 MED[facility] ([facility], [facility]) Creatinine For GFR 0.87 mg/dL 0.55-1.30 MED[facility] ([facility], [facility]) Carbon Dioxide Level 25 meq/L 21-32 [facility] ( [facility] [place], [facility]) Chloride Level 107 meq/L 98-107 MED[facility] ([facility] [place], [facility]) Potassium Serum 4.0 meq/L 3.5-5.1 MEDENT ([facility] [place], [facility]) Calcium Level 8.9 mg/dL 8.5-10.1 MED[facility] ([facility] [place], [facility]) Anion Gap 6 meq/L 8-16 MEDENT ([facility], [facility]) Alt/SGPT 19 U/L 12-78 MED[facility] ([facility], [facility]) Ast/Sgot 16 U/L 7-37 MED[facility] ([facility], [facility]) Alkaline Phosphatase 86 U/L 45-117 [facility] [place], [facility]) Bilirubin,Total 0.4 mg/dL 0.2-1.0 MEDENT ([facility] [place], [facility]) Total Protein 8.4 GM/DL 6.4-8.2 MED[facility] ([facility], [facility]) Albumin 4.4 GM/DL 3.2-5.2 MED[facility] ([facility], [facility]) Albumin/Globulin Ratio 1.1 1.2-2.2 MED[facility] ([facility], [facility]) ID Date Data Source [id number] 07/12/2021 09:54:00 AM EDT MEDENT ([facility] [place], [facility]) Name Value Range Interpretation Code Description Data Arlen rce(s) Supporting Document(s) White Blood Count 9.0 10 4.0-10.0 [facility] ([facility] [place], [facility]) Red Blood Count 4.27 10 4.00-5.40 MED[facility] ([facility] [place], [facility]) Hemoglobin 13.0 g/dL 12.0-15.5 [facility] ([facility], [facility]) Hematocrit 39.8 % 36.0-47.0 MED[facility] ([facility], [facility]) Mean Corpuscular Volume 93.2 fl 80.0-96.0 M EDENT ([facility] [place], [facility]) Mean Corpuscular HGB Conc 32.7 g/dL 32.0-36.5 MED[facility] ([facility] [facility] [place], [facility]) Mean Corpuscular Hemoglobin 30.4 pg 27.0-33.0 MED[facility] ([facility] [place], [facility]) Red Cell Distribution Width 12.2 % 11.5-14.5 MED[facility] ([facility] [place], [facility]) Neutrophils % 74.1 % 36.0-66.0 MED[facility] ([facility] [place], [facility]) Platelet Count, Automated 377 10 150-450 MED[facility] ([place] [facility] [place], [facility]) Lymph % 19.2 % 24.0-44.0 [facility] ([facility], [facility]) [place] % 5.7 % 2.0-8.0 MED[facility] ([facility], [facility]) Immature Granulocyte % 0.6 % 0-3.0 [facility] ([facility], [facility]) Baso % 0.3 % 0.0-1.0 [facility] ([facility], [facility]) Eos % 0.1 % 0.0-3.0 [facility] ([facility], [facility]) Neutrophils # 6.6 10 1.5-8.5 MED[facility] ([facility], [facility]) Nucleated Red Blood Cell % 0.0 % 0-0 MED ENT ([facility], [facility]) [place] # 0.5 10 0.0-0.8 [facility] ([facility] Lymph # 1.7 10 1.5-5.0 [facility] ([facility], [facility]) Eos # 0.0 10 0.0-0.5 [facility] ([facility]) Baso # 0.0 10 0.0-0.2 MED[facility] ([facility]) ID Date Data Source [id number] 07/12/2021 09:53:00 AM EDT MED[facility] ([facility]) Name Value Range Interpretation Code Description Data Arlen rce(s) Supporting Document(s) Bacteria identified in Urine by Culture Laboratory test result [facility] ([facility]) Rx Loperimide/Ondansetron ID Date Data Source [id number] 07/12/2021 12:00:00 AM EDT [facility] Name Value Range Interpretation Code Description Data Arlen rce(s) Supporting Document(s) SARS-CoV2 Rapid Antigen Negative [facility] This lab was reported by [facility]. ID Date Data Source [id number] 06/19/2021 04:25:00 PM EDT [facility] Name Value Range Interpretation Code Description Data Arlen rce(s) Supporting Document(s) Bacteria identified in Urine by Culture Laboratory test result MED[facility] ([facility]) FULL REPORT IN LAB NOTES (eCW and [facility] ). NO GROWTH CLINICAL SIGNIFICANCE 2 OR MORE ORGANISMS ID Date Data Source [id number] 05/11/2021 10:55:00 AM EDT [facility]) Name Value Range Interpretation Code Description Data Arlen rce(s) Supporting Document(s) HCV RNA PHILIPPE qualitative negative negative HCV RNA PHILIPPE Qualitative [facility]) ID Date Data Source [id number] 05/11/2021 10:55:00 AM EDT [facility]) Name Value Range Interpretation Code Description Data Arlen rce(s) Supporting Document(s) HIV 1&2 screen centaur negative negative HIV 1&2 Scree n Centaur [facility]) ID Date Data Source [id number] 05/11/2021 10:55:00 AM EDT [facility]) Name Value Range Interpretation Code Description Data Arlen rce(s) Supporting Document(s) HCG, serum qualitative negative negative HCG, Serum Qu alitative [place] ([facility]) ID Date Data Source [id number] 05/11/2021 10:55:00 AM EDT [facility]) Name Value Range Interpretation Code Description Data Arlen rce(s) Supporting Document(s) syphilis nonreactive nonreactive Syphilis [place] ([facility]) ID Date Data Source [id number] 05/11/2021 10:55:00 AM EDT [facility]) Name Value Range Interpretation Code Description Data Arlen rce(s) Supporting Document(s) hepatitis B surface antigen negative negative Hepatiti s B Surface Antigen [place] ([facility]) ID Date Data Source [id number] 05/11/2021 10:55:00 AM EDT [facility]) Name Value Range Interpretation Code Description Data Arlen rce(s) Supporting Document(s) hepatitis C virus vishal index < 0.0 <0.8 Hepatiti s C Virus Vishal Index [place] ([facility]) ID Date Data Source [id number] 05/11/2021 10:55:00 AM EDT [facility]) Name Value Range Interpretation Code Description Data Ralen rce(s) Supporting Document(s) glucose, fasting 81 mg/dL 70-100 Glucose, Fasting AT [facility] ([facility]) blood urea nitrogen 17 mg/dL 7-18 Blood Urea Nitro gen [place] ([facility]) creatinine for GFR 0.72 mg/dL 0.55-1.30 Creatinine for GF R [place] ([facility]) glomerular filtration rate > 60.0 >60 Glomerula r Filtration Rate [place] ([facility]) sodium level 136 mEq/L 136-145 Sodium Level [place] (No [facility]) potassium serum 4.5 mEq/L 3.5-5.1 Potassium Serum ATH NA ([facility]) chloride level 102 mEq/L 98-107 Chloride Level [place] ([facility]) carbon dioxide level 32 mEq/L 21-32 Carbon Dioxide Level [place] ([facility]) anion gap 2 mEq/L 8-16 Below low normal Anion Gap [place] ( [facility]) calcium level 9.5 mg/dL 8.5-10.1 Calcium Level [place] ( [facility]) AST/SGOT 13 U/L 7-37 AST/SGOT [place] ([facility]) ALT/SGPT 22 U/L 12-78 ALT/SGPT [place] ([facility]) bilirubin,total 0.5 mg/dL 0.2-1.0 Bilirubin,total ATHE NA ([facility]) alkaline phosphatase 85 U/L 45-117 Alkaline Phosph atase [place] ([facility]) total protein 7.9 gm/dL 6.4-8.2 Total Protein [place] ( [facility]) albumin 4.0 gm/dL 3.2-5.2 Albumin [place] ([facility]) albumin/globulin ratio 1.2-2.2 Below low normal Albumin /globulin Ratio [place] ([facility]) ID Date Data Source [id number] 05/11/2021 10:55:00 AM EDT [place] ([facility]) Name Value Range Interpretation Code Description Data Arlen rce(s) Supporting Document(s) white blood count 8.6 10 4.0-10.0 White Blood Count [place] ([facility]) red blood count 4.27 10 4.00-5.40 Red Blood Count ATHE NA ([facility]) hemoglobin 13.2 g/dL 12.0-15.5 Hemoglobin [place] ([facility]) mean corpuscular volume 94.8 fL 80.0-96.0 Mean Corpusc ular Volume [place] ([facility]) hematocrit 40.5 % 36.0-47.0 Hematocrit [place] ([facility]) mean corpuscular hemoglobin 30.9 pg 27.0-33.0 Mean Cor puscular Hemoglobin [place] ([facility]) red cell distribution width 12.8 % 11.5-14.5 Red Cell Distribution Width [place] ([facility]) mean corpuscular HGB conc 32.6 g/dL 32.0-36.5 Mean Corpu scular HGB Conc [place] ([facility]) platelet count, automated 386 10 150-450 Platelet C ount, Automated [place] ([facility]) nucleated red blood cell % 0.0 % 0-0 Nucleated Red Blood Cell % [place] ([facility]) ID Date Data Source [id number] 05/11/2021 10:55:00 AM EDT [place] ([facility]) Name Value Range Interpretation Code Description Data Arlen rce(s) Supporting Document(s) HCV RNA PHILIPPE qualitative negative negative HCV RNA [place] Qualitative [facility]) ID Date Data Source [id number] 05/11/2021 10:55:00 AM EDT [facility]) Name Value Range Interpretation Code Description Data Arlen rce(s) Supporting Document(s) HIV 1&2 screen centaur negative negative HIV 1&2 Scree n Centaur [place] ([facility]) ID Date Data Source [id number] 05/11/2021 10:55:00 AM EDT [facility]) Name Value Range Interpretation Code Description Data Arlen rce(s) Supporting Document(s) HCG, serum qualitative negative negative [facility]CG, [facility] ID Date Data Source [id number] 05/11/2021 10:55:00 AM EDT [facility]) Name Value Range Interpretation Code Description Data Arlen rce(s) Supporting Document(s) syphilis nonreactive nonreactive Syphilis [facility]) ID Date Data Source [id number] 05/11/2021 10:55:00 AM EDT [place] ([facility]) Name Value Range Interpretation Code Description Data Arlen rce(s) Supporting Document(s) hepatitis B surface antigen negative negative Hepatiti s B Surface Antigen [place] ([facility]) ID Date Data Source [id number] 05/11/2021 10:55:00 AM EDT [place] ([facility]) Name Value Range Interpretation Code Description Data Arlen rce(s) Supporting Document(s) hepatitis C virus vishal index < 0.0 <0.8 Hepatiti s C Virus Vishal Index [place] ([facility]) ID Date Data Source [id number] 05/11/2021 10:55:00 AM EDT [place] ([facility]) Name Value Range Interpretation Code Description Data Arlen rce(s) Supporting Document(s) blood urea nitrogen 17 mg/dL 7-18 Blood Urea Nitro gen [place] ([facility]) glucose, fasting 81 mg/dL 70-100 Glucose, Fasting AT [facility] ([facility]) creatinine for GFR 0.72 mg/dL 0.55-1.30 Creatinine for GF R [place] ([facility]) glomerular filtration rate > 60.0 >60 Glomerula r Filtration Rate [place] ([facility]) sodium level 136 mEq/L 136-145 Sodium Level [place] ([facility]) potassium serum 4.5 mEq/L 3.5-5.1 Potassium Serum ATHE NA ([facility]) chloride level 102 mEq/L 98-107 Chloride Level [place] ([facility]) carbon dioxide level 32 mEq/L 21-32 Carbon Dioxide Level [place] ([facility]) anion gap 2 mEq/L 8-16 Below low normal Anion Gap [place] ( [facility]) calcium level 9.5 mg/dL 8.5-10.1 Calcium Level [place] ( [facility]) AST/SGOT 13 U/L 7-37 AST/SGOT [place] ([facility]) ALT/SGPT 22 U/L 12-78 ALT/SGPT [place] ([facility]) alkaline phosphatase 85 U/L 45-117 Alkaline Phosph atase [place] ([facility]) total protein 7.9 gm/dL 6.4-8.2 Total Protein [place] ( [facility]) bilirubin,total 0.5 mg/dL 0.2-1.0 Bilirubin,total ATHE NA ([facility]) albumin 4.0 gm/dL 3.2-5.2 Albumin [place] ([facility]) albumin/globulin ratio 1.2-2.2 Below low normal Albumin /globulin Ratio [place] ([facility]) ID Date Data Source [id number] 05/11/2021 10:55:00 AM EDT [place] ([facility]) Name Value Range Interpretation Code Description Data Arlen rce(s) Supporting Document(s) white blood count 8.6 10 4.0-10.0 White Blood Count [place] ([facility]) red blood count 4.27 10 4.00-5.40 Red Blood Count ATHE NA ([facility]) hemoglobin 13.2 g/dL 12.0-15.5 Hemoglobin [place] ([facility]) hematocrit 40.5 % 36.0-47.0 Hematocrit [place] ([facility]) mean corpuscular volume 94.8 fL 80.0-96.0 Mean Corpusc ular Volume [place] ([facility]) mean corpuscular hemoglobin 30.9 pg 27.0-33.0 Mean Cor puscular Hemoglobin [place] ([facility]) mean corpuscular HGB conc 32.6 g/dL 32.0-36.5 Mean Corpu scular HGB Conc [place] ([facility]) red cell distribution width 12.8 % 11.5-14.5 Red Cell Distribution Width [place] ([facility]) platelet count, automated 386 10 150-450 Platelet C ount, Automated [place] ([facility]) nucleated red blood cell % 0.0 % 0-0 Nucleated Red Blood Cell % [place] ([facility]) ID Date Data Source [id number] 05/11/2021 10:55:00 AM EDT [facility]) Name Value Range Interpretation Code Description Data Arlen rce(s) Supporting Document(s) HCV RNA PHILIPPE qualitative negative negative HCV RNA PHILIPPE Qualitative [facility]) ID Date Data Source [id number] 05/11/2021 10:55:00 AM EDT [place] ([facility]) Name Value Range Interpretation Code Description Data Arlen rce(s) Supporting Document(s) HIV 1&2 screen centaur negative negative HIV 1&2 Scree n Centaur [place] ([facility]) ID Date Data Source [id number] 05/11/2021 10:55:00 AM EDT [facility]) Name Value Range Interpretation Code Description Data Arlen rce(s) Supporting Document(s) HCG, serum qualitative negative negative HCG, Serum Qu alitative [facility]) ID Date Data Source [id number] 05/11/2021 10:55:00 AM EDT [facility]) Name Value Range Interpretation Code Description Data Arlen rce(s) Supporting Document(s) syphilis nonreactive nonreactive Syphilis [place] ([facility]) ID Date Data Source [id number] 05/11/2021 10:55:00 AM EDT [facility]) Name Value Range Interpretation Code Description Data Arlen rce(s) Supporting Document(s) hepatitis B surface antigen negative negative Hepatiti s B Surface Antigen [facility]) ID Date Data Source [id number] 05/11/2021 10:55:00 AM EDT [facility]) Name Value Range Interpretation Code Description Data Arlen rce(s) Supporting Document(s) hepatitis C virus vishal index < 0.0 <0.8 Hepatiti s C Virus Vishal Index [place] ([facility]) ID Date Data Source [id number] 05/11/2021 10:55:00 AM EDT [place] ([facility]) Name Value Range Interpretation Code Description Data Arlen rce(s) Supporting Document(s) glucose, fasting 81 mg/dL 70-100 Glucose, Fasting AT [facility] ([facility]) blood urea nitrogen 17 mg/dL 7-18 Blood Urea Nitro gen [place] ([facility]) creatinine for GFR 0.72 mg/dL 0.55-1.30 Creatinine for GF R [place] ([facility]) glomerular filtration rate > 60.0 >60 Glomerula r Filtration Rate [place] ([facility]) sodium level 136 mEq/L 136-145 Sodium Level [place] ([facility]) potassium serum 4.5 mEq/L 3.5-5.1 Potassium Serum AT[place] ([facility]) carbon dioxide level 32 mEq/L 21-32 Carbon Dioxide Level [place] ([facility]) chloride level 102 mEq/L 98-107 Chloride Level [place] ([facility]) anion gap 2 mEq/L 8-16 Below low normal Anion Gap [place] ( [facility]) AST/SGOT 13 U/L 7-37 AST/SGOT [place] ([facility]) calcium level 9.5 mg/dL 8.5-10.1 Calcium Level [place] ( [facility]) ALT/SGPT 22 U/L 12-78 ALT/SGPT [place] ([facility]) alkaline phosphatase 85 U/L 45-117 Alkaline Phosph atase [place] ([facility]) bilirubin,total 0.5 mg/dL 0.2-1.0 Bilirubin,total [place] ([facility]) total protein 7.9 gm/dL 6.4-8.2 Total Protein [place] ( [facility]) albumin 4.0 gm/dL 3.2-5.2 Albumin [place] ([facility]) albumin/globulin ratio 1.2-2.2 Below low normal Albumin /globulin Ratio [place] ([facility]) ID Date Data Source [id number] 05/11/2021 10:55:00 AM EDT [place] ([facility]) Name Value Range Interpretation Code Description Data Arlen rce(s) Supporting Document(s) white blood count 8.6 10 4.0-10.0 White Blood Count [place] ([facility]) hemoglobin 13.2 g/dL 12.0-15.5 Hemoglobin [place] ([facility]) red blood count 4.27 10 4.00-5.40 Red Blood Count AT[place] ([facility]) hematocrit 40.5 % 36.0-47.0 Hematocrit [place] ([facility]) mean corpuscular volume 94.8 fL 80.0-96.0 Mean Corpusc ular Volume [place] ([facility]) mean corpuscular hemoglobin 30.9 pg 27.0-33.0 Mean Cor puscular Hemoglobin [place] ([facility]) mean corpuscular HGB conc 32.6 g/dL 32.0-36.5 Mean Corpu scular HGB Conc [place] ([facility]) red cell distribution width 12.8 % 11.5-14.5 Red Cell Distribution Width [place] ([facility]) platelet count, automated 386 10 150-450 Platelet C ount, Automated [place] ([facility]) nucleated red blood cell % 0.0 % 0-0 Nucleated Red Blood Cell % [place] ([facility]) ID Date Data Source [id number] 05/11/2021 10:51:00 AM EDT [place] ([facility]) Name Value Range Interpretation Code Description Data Arlen rce(s) Supporting Document(s) chlamydia DNA amplification negative negative Chlamydi a DNA Amplification [place] ([facility]) GC DNA amplification negative negative GC DNA Amplific ation [place] ([facility]) ID Date Data Source [id number] 05/11/2021 10:51:00 AM EDT [facility]) Name Value Range Interpretation Code Description Data Arlen rce(s) Supporting Document(s) chlamydia DNA amplification negative negative Chlamydi a DNA Amplification [place] ([facility]) GC DNA amplification negative negative GC DNA Amplific ation [facility]) ID Date Data Source [id number] 05/11/2021 10:51:00 AM EDT [facility]) Name Value Range Interpretation Code Description Data Arlen rce(s) Supporting Document(s) chlamydia DNA amplification negative negative Chlamydi a DNA Amplification [place] ([facility]) GC DNA amplification negative negative GC DNA Amplific ation [facility]) ID Date Data Source [id number] 04/12/2021 12:25:00 PM EDT [facility]) Name Value Range Interpretation Code Description Data Arlen rce(s) Supporting Document(s) ebv viral capsid Ag IgM <36.0 0.0-35.9 Ebv Viral Ca psid Ag IgM [place] ([facility]) ebv viral capsid Ag IgG >600.0 0.0-17.9 Above high normal Ebv Viral Capsid Ag IgG [facility]) ebv Ab to nuclear antigen 277.0 U/mL 0.0-17.9 Above high norm al Ebv Ab to Nuclear Antigen [place] ([facility]) ebv interpretation . Ebv Interpretatio n [facility]) ID Date Data Source [id number] 04/12/2021 12:25:00 PM EDT [facility]) Name Value Range Interpretation Code Description Data Arlen rce(s) Supporting Document(s) lyme disease IgG/IgM antibodie <0.91 0.00-0.90 Lyme Disease IgG/IgM Antibodie [facility]) lyme disease IgM Ab quantitati <0.80 0.00-0.79 Lyme Disease IgM Ab Quantitati [facility]) ID Date Data Source [id number] 04/12/2021 12:25:00 PM EDT [facility]) Name Value Range Interpretation Code Description Data Arlen rce(s) Supporting Document(s) ebv viral capsid Ag IgM <36.0 0.0-35.9 Ebv Viral Ca psid Ag IgM [facility]) ebv viral capsid Ag IgG >600.0 0.0-17.9 Above high normal Ebv Viral Capsid Ag IgG [place] ([facility]) ebv Ab to nuclear antigen 277.0 U/mL 0.0-17.9 Above high norm al Ebv Ab to Nuclear Antigen [place] ([facility]) ebv interpretation . Ebv Interpretatio n [facility]) ID Date Data Source [id number] 04/12/2021 12:25:00 PM EDT [facility]) Name Value Range Interpretation Code Description Data Arlen rce(s) Supporting Document(s) lyme disease IgG/IgM antibodie <0.91 0.00-0.90 Lyme Disease IgG/IgM Antibodie [facility]) lyme disease IgM Ab quantitati <0.80 0.00-0.79 Lyme Disease IgM Ab Quantitati [facility]) ID Date Data Source [id number] 04/12/2021 12:25:00 PM EDT [facility]) Name Value Range Interpretation Code Description Data Arlen rce(s) Supporting Document(s) ebv viral capsid Ag IgG >600.0 0.0-17.9 Above high normal Ebv Viral Capsid Ag IgG [place] ([facility]) ebv viral capsid Ag IgM <36.0 0.0-35.9 Ebv Viral Ca psid Ag IgM [facility]) ebv Ab to nuclear antigen 277.0 U/mL 0.0-17.9 Above high norm al [facility] . Ebv Interpretatio n [facility]) ID Date Data Source [id number] 04/12/2021 12:25:00 PM EDT [facility]) Name Value Range Interpretation Code Description Data Arlen rce(s) Supporting Document(s) lyme disease IgG/IgM antibodie <0.91 0.00-0.90 Lyme Disease IgG/IgM Antibodie [place] ([facility]) lyme disease IgM Ab quantitati <0.80 0.00-0.79 Lyme Disease IgM Ab Quantitati [facility]) ID Date Data Source [id number] 04/12/2021 12:25:00 PM EDT [facility]) Name Value Range Interpretation Code Description Data Arlen rce(s) Supporting Document(s) ebv Ab to nuclear antigen 277.0 U/mL 0.0-17.9 Above high norm al Ebv Ab to Nuclear Antigen [place] ([facility]) ebv viral capsid Ag IgM <36.0 0.0-35.9 Ebv Viral Ca psid Ag IgM [place] ([facility]) ebv viral capsid Ag IgG >600.0 0.0-17.9 Above high normal Ebv Viral Capsid Ag IgG [facility]) ebv interpretation . Ebv Interpretatio n [facility]) ID Date Data Source [id number] 04/12/2021 12:25:00 PM EDT [facility]) Name Value Range Interpretation Code Description Data Arlen rce(s) Supporting Document(s) lyme disease IgG/IgM antibodie <0.91 0.00-0.90 Lyme Disease IgG/IgM Antibodie [facility]) lyme disease IgM Ab quantitati <0.80 0.00-0.79 Lyme Disease IgM Ab Quantitati [facility]) ID Date Data Source [id number] 04/12/2021 12:01:00 PM EDT [facility]) Name Value Range Interpretation Code Description Data Arlen rce(s) Supporting Document(s) HCG, serum qualitative negative negative HCG, Serum Qu alitative [place] ([facility]) ID Date Data Source [id number] 04/12/2021 12:01:00 PM EDT [place] ([facility]) Name Value Range Interpretation Code Description Data Arlen rce(s) Supporting Document(s) mono reflex ebv comp negative negative [place] Reflex Ebv Comp [facility]) ID Date Data Source [id number] 04/12/2021 12:01:00 PM EDT [facility]) Name Value Range Interpretation Code Description Data Arlen rce(s) Supporting Document(s) free T4 0.92 NG/dL 0.76-1.46 Free T4 [place] ([facility]) ID Date Data Source [id number] 04/12/2021 12:01:00 PM EDT [place] ([facility]) Name Value Range Interpretation Code Description Data Arlen rce(s) Supporting Document(s) thyroid stimulating hormone 0.594 uIU/mL 0.358-3.740 Thyroid Stimulating Hormone [place] ([facility]) ID Date Data Source [id number] 04/12/2021 12:01:00 PM EDT [place] ([facility]) Name Value Range Interpretation Code Description Data Arlen rce(s) Supporting Document(s) blood urea nitrogen 11 mg/dL 7-18 Blood Urea Nitro gen [place] ([facility]) glucose, fasting 76 mg/dL 70-100 Glucose, Fasting AT [facility] ([facility]) sodium level 138 mEq/L 136-145 Sodium Level [place] (No [facility]) creatinine for GFR 0.79 mg/dL 0.55-1.30 Creatinine for GF R [place] ([facility]) glomerular filtration rate > 60.0 >60 Glomerula r Filtration Rate [place] ([facility]) potassium serum 4.1 mEq/L 3.5-5.1 Potassium Serum ATHE NA ([facility]) chloride level 103 mEq/L 98-107 Chloride Level [place] ([facility]) anion gap 5 mEq/L 8-16 Below low normal Anion Gap [place] ( [facility]) carbon dioxide level 30 mEq/L 21-32 Carbon Dioxide Level [place] ([facility]) calcium level 9.1 mg/dL 8.5-10.1 Calcium Level [place] ( [facility]) ID Date Data Source [id number] 04/12/2021 12:01:00 PM EDT [place] ([facility]) Name Value Range Interpretation Code Description Data Arlen rce(s) Supporting Document(s) AST/SGOT 11 U/L 7-37 AST/SGOT [place] ([facility]) ALT/SGPT 16 U/L 12-78 ALT/SGPT [place] ([facility]) bilirubin,total 0.9 mg/dL 0.2-1.0 Bilirubin,total [place] ([facility]) alkaline phosphatase 71 U/L 45-117 Alkaline Phosph atase [place] ([facility]) bilirubin,direct 0.2 mg/dL 0.0-0.2 Bilirubin,direct AT [facility] ([facility]) total protein 8.0 gm/dL 6.4-8.2 Total Protein [place] ( [facility]) albumin/globulin ratio 1.2-2.2 Below low normal Albumin /globulin Ratio [place] ([facility]) albumin 4.1 gm/dL 3.2-5.2 Albumin [place] ([facility]) ID Date Data Source [id number] 04/12/2021 12:01:00 PM EDT [place] ([facility]) Name Value Range Interpretation Code Description Data Arlen rce(s) Supporting Document(s) white blood count 8.7 10 4.0-10.0 White Blood Count [place] ([facility]) red blood count 4.29 10 4.00-5.40 Red Blood Count ATHE NA ([facility]) hemoglobin 13.2 g/dL 12.0-15.5 Hemoglobin [place] ([facility]) hematocrit 40.0 % 36.0-47.0 Hematocrit [place] ([facility]) mean corpuscular hemoglobin 30.8 pg 27.0-33.0 Mean Cor puscular Hemoglobin [place] ([facility]) mean corpuscular volume 93.2 fL 80.0-96.0 Mean Corpusc ular Volume [place] ([facility]) red cell distribution width 12.7 % 11.5-14.5 Red Cell Distribution Width [place] ([facility]) mean corpuscular HGB conc 33.0 g/dL 32.0-36.5 Mean Corpu scular HGB Conc [place] ([facility]) platelet count, automated 296 10 150-450 Platelet C ount, Automated [place] ([facility]) neutrophils % 63.4 % 36.0-66.0 Neutrophils % [place] ( [facility]) lymph % 28.4 % 24.0-44.0 Lymph % [place] ([facility]) mono % 7.3 % 2.0-8.0 [place] % [place] ([facility]) eos % 0.2 % 0.0-3.0 Eos % [place] ([facility]) baso % 0.5 % 0.0-1.0 Baso % [place] ([facility]) nucleated red blood cell % 0.0 % 0-0 Nucleated Red Blood Cell % [place] ([facility]) immature granulocyte % 0.2 % 0-3.0 Immature Gran ulocyte % [place] ([facility]) neutrophils # 5.5 10 1.5-8.5 Neutrophils # [place] ( [facility]) lymph # 2.5 10 1.5-5.0 Lymph # [place] ([facility]) mono # 0.6 10 0.0-0.8 [place] # [place] ([facility]) baso # 0.0 10 0.0-0.2 Baso # [place] ([facility]) eos # 0.0 10 0.0-0.5 Eos # [place] ([facility]) ID Date Data Source [id number] 04/12/2021 12:01:00 PM EDT [place] ([facility]) Name Value Range Interpretation Code Description Data Arlen rce(s) Supporting Document(s) HCG, serum qualitative negative negative HCG, Serum Qu alitative [facility]) ID Date Data Source [id number] 04/12/2021 12:01:00 PM EDT [facility]) Name Value Range Interpretation Code Description Data Arlen rce(s) Supporting Document(s) mono reflex ebv comp negative negative [place] Reflex Ebv Comp [facility]) ID Date Data Source [id number] 04/12/2021 12:01:00 PM EDT [facility]) Name Value Range Interpretation Code Description Data Arlen rce(s) Supporting Document(s) free T4 0.92 NG/dL 0.76-1.46 Free T4 [facility]) ID Date Data Source [id number] 04/12/2021 12:01:00 PM EDT [facility]) Name Value Range Interpretation Code Description Data Arlen rce(s) Supporting Document(s) thyroid stimulating hormone 0.594 uIU/mL 0.358-3.740 Thyroid Stimulating Hormone [place] ([facility]) ID Date Data Source [id number] 04/12/2021 12:01:00 PM EDT [facility]) Name Value Range Interpretation Code Description Data Arlen rce(s) Supporting Document(s) glucose, fasting 76 mg/dL 70-100 Glucose, Fasting AT [facility]) blood urea nitrogen 11 mg/dL 7-18 Blood Urea Nitro gen [place] ([facility]) creatinine for GFR 0.79 mg/dL 0.55-1.30 Creatinine for GF R [place] ([facility]) glomerular filtration rate > 60.0 >60 Glomerula r Filtration Rate [place] ([facility]) sodium level 138 mEq/L 136-145 Sodium Level [place] (No [facility]) carbon dioxide level 30 mEq/L 21-32 Carbon Dioxide Level [place] ([facility]) chloride level 103 mEq/L 98-107 Chloride Level [place] ([facility]) potassium serum 4.1 mEq/L 3.5-5.1 Potassium Serum [place] ([facility]) anion gap 5 mEq/L 8-16 Below low normal Anion Gap [place] ( [facility]) calcium level 9.1 mg/dL 8.5-10.1 Calcium Level [place] ( [facility]) ID Date Data Source [id number] 04/12/2021 12:01:00 PM EDT [place] ([facility]) Name Value Range Interpretation Code Description Data Arlen rce(s) Supporting Document(s) AST/SGOT 11 U/L 7-37 AST/SGOT [place] ([facility]) ALT/SGPT 16 U/L 12-78 ALT/SGPT [place] ([facility]) alkaline phosphatase 71 U/L 45-117 Alkaline Phosph atase [place] ([facility]) bilirubin,direct 0.2 mg/dL 0.0-0.2 Bilirubin,direct AT [facility]) bilirubin,total 0.9 mg/dL 0.2-1.0 Bilirubin,total [place] ([facility]) albumin 4.1 gm/dL 3.2-5.2 Albumin [place] ([facility]) total protein 8.0 gm/dL 6.4-8.2 Total Protein [place] ( [facility]) albumin/globulin ratio 1.2-2.2 Below low normal Albumin /globulin Ratio [place] ([facility]) ID Date Data Source [id number] 04/12/2021 12:01:00 PM EDT [place] ([facility]) Name Value Range Interpretation Code Description Data Arlen rce(s) Supporting Document(s) white blood count 8.7 10 4.0-10.0 White Blood Count [place] ([facility]) red blood count 4.29 10 4.00-5.40 Red Blood Count [place] NA ([facility]) hematocrit 40.0 % 36.0-47.0 Hematocrit [place] ([facility]) hemoglobin 13.2 g/dL 12.0-15.5 Hemoglobin [place] ([facility]) mean corpuscular hemoglobin 30.8 pg 27.0-33.0 Mean Cor puscular Hemoglobin [place] ([facility]) mean corpuscular volume 93.2 fL 80.0-96.0 Mean Corpusc ular Volume [place] ([facility]) mean corpuscular HGB conc 33.0 g/dL 32.0-36.5 Mean Corpu scular HGB Conc [place] ([facility]) red cell distribution width 12.7 % 11.5-14.5 Red Cell Distribution Width [place] ([facility]) platelet count, automated 296 10 150-450 Platelet C ount, Automated [place] ([facility]) lymph % 28.4 % 24.0-44.0 Lymph % [place] ([facility]) neutrophils % 63.4 % 36.0-66.0 Neutrophils % [place] ( [facility]) mono % 7.3 % 2.0-8.0 [place] % [place] ([facility]) eos % 0.2 % 0.0-3.0 Eos % [place] ([facility]) immature granulocyte % 0.2 % 0-3.0 Immature Gran ulocyte % [place] ([facility]) baso % 0.5 % 0.0-1.0 Baso % [place] ([facility]) nucleated red blood cell % 0.0 % 0-0 Nucleated Red Blood Cell % [place] ([facility]) neutrophils # 5.5 10 1.5-8.5 Neutrophils # [place] ( [facility]) mono # 0.6 10 0.0-0.8 [place] # [place] ([facility]) lymph # 2.5 10 1.5-5.0 Lymph # [place] ([facility]) eos # 0.0 10 0.0-0.5 Eos # [place] ([facility]) baso # 0.0 10 0.0-0.2 Baso # [place] ([facility]) ID Date Data Source [id number] 04/12/2021 12:01:00 PM EDT [place] ([facility]) Name Value Range Interpretation Code Description Data Arlen rce(s) Supporting Document(s) HCG, serum qualitative negative negative HCG, Serum Qu alitative [place] ([facility]) ID Date Data Source [id number] 04/12/2021 12:01:00 PM EDT [place] ([facility]) Name Value Range Interpretation Code Description Data Arlen rce(s) Supporting Document(s) mono reflex ebv comp negative negative [place] Reflex Ebv Comp [place] ([facility]) ID Date Data Source [id number] 04/12/2021 12:01:00 PM EDT [place] ([facility]) Name Value Range Interpretation Code Description Data Arlen rce(s) Supporting Document(s) free T4 0.92 NG/dL 0.76-1.46 Free T4 [place] ([facility]) ID Date Data Source [id number] 04/12/2021 12:01:00 PM EDT [facility]) Name Value Range Interpretation Code Description Data Arlen rce(s) Supporting Document(s) thyroid stimulating hormone 0.594 uIU/mL 0.358-3.740 Thyroid Stimulating Hormone [place] ([facility]) ID Date Data Source [id number] 04/12/2021 12:01:00 PM EDT [place] ([facility]) Name Value Range Interpretation Code Description Data Arlen rce(s) Supporting Document(s) glucose, fasting 76 mg/dL 70-100 Glucose, Fasting AT [facility] ([facility]) blood urea nitrogen 11 mg/dL 7-18 Blood Urea Nitro gen [place] ([facility]) creatinine for GFR 0.79 mg/dL 0.55-1.30 Creatinine for GF R [place] ([facility]) glomerular filtration rate > 60.0 >60 Glomerula r Filtration Rate [place] ([facility]) sodium level 138 mEq/L 136-145 Sodium Level [place] ([facility]) potassium serum 4.1 mEq/L 3.5-5.1 Potassium Serum ATH NA ([facility]) chloride level 103 mEq/L 98-107 Chloride Level [place] ([facility]) carbon dioxide level 30 mEq/L 21-32 Carbon Dioxide Level [place] ([facility]) anion gap 5 mEq/L 8-16 Below low normal Anion Gap [place] ( [facility]) calcium level 9.1 mg/dL 8.5-10.1 Calcium Level [place] ( [facility]) ID Date Data Source [id number] 04/12/2021 12:01:00 PM EDT [facility]) Name Value Range Interpretation Code Description Data Arlen rce(s) Supporting Document(s) ALT/SGPT 16 U/L 12-78 ALT/SGPT [place] ([facility]) AST/SGOT 11 U/L 7-37 AST/SGOT [place] ([facility]) alkaline phosphatase 71 U/L 45-117 Alkaline Phosph atase [place] ([facility]) bilirubin,total 0.9 mg/dL 0.2-1.0 Bilirubin,total ATHE [facility]) total protein 8.0 gm/dL 6.4-8.2 Total Protein [place] ( [facility]) bilirubin,direct 0.2 mg/dL 0.0-0.2 Bilirubin,direct AT [facility]) albumin 4.1 gm/dL 3.2-5.2 Albumin [place] ([facility]) albumin/globulin ratio 1.2-2.2 Below low normal Albumin /globulin Ratio [place] ([facility]) ID Date Data Source [id number] 04/12/2021 12:01:00 PM EDT [place] ([facility]) Name Value Range Interpretation Code Description Data Arlen rce(s) Supporting Document(s) red blood count 4.29 10 4.00-5.40 Red Blood Count ATHE NA ([facility]) white blood count 8.7 10 4.0-10.0 White Blood Count [place] ([facility]) hematocrit 40.0 % 36.0-47.0 Hematocrit [place] ([facility]) hemoglobin 13.2 g/dL 12.0-15.5 Hemoglobin [place] ([facility]) mean corpuscular volume 93.2 fL 80.0-96.0 Mean Corpusc ular Volume [place] ([facility]) mean corpuscular hemoglobin 30.8 pg 27.0-33.0 Mean Cor puscular Hemoglobin [place] ([facility]) mean corpuscular HGB conc 33.0 g/dL 32.0-36.5 Mean Corpu scular HGB Conc [place] ([facility]) platelet count, automated 296 10 150-450 Platelet C ount, Automated [place] ([facility]) red cell distribution width 12.7 % 11.5-14.5 Red Cell Distribution Width [place] ([facility]) lymph % 28.4 % 24.0-44.0 Lymph % [place] ([facility]) neutrophils % 63.4 % 36.0-66.0 Neutrophils % [place] ( [facility]) mono % 7.3 % 2.0-8.0 [place] % [place] ([facility]) eos % 0.2 % 0.0-3.0 Eos % [place] ([facility]) baso % 0.5 % 0.0-1.0 Baso % [place] ([facility]) immature granulocyte % 0.2 % 0-3.0 Immature Gran ulocyte % [place] ([facility]) neutrophils # 5.5 10 1.5-8.5 Neutrophils # [place] ( [facility]) nucleated red blood cell % 0.0 % 0-0 Nucleated Red Blood Cell % [place] ([facility]) lymph # 2.5 10 1.5-5.0 Lymph # [place] ([facility]) mono # 0.6 10 0.0-0.8 [place] # [place] ([facility]) eos # 0.0 10 0.0-0.5 Eos # [place] ([facility]) baso # 0.0 10 0.0-0.2 Baso # [place] ([facility]) ID Date Data Source [id number] 04/12/2021 12:01:00 PM EDT [place] ([facility]) Name Value Range Interpretation Code Description Data Arlen rce(s) Supporting Document(s) HCG, serum qualitative negative negative HCG, Serum Qu alitative [place] ([facility]) ID Date Data Source [id number] 04/12/2021 12:01:00 PM EDT [facility]) Name Value Range Interpretation Code Description Data Arlen rce(s) Supporting Document(s) mono reflex ebv comp negative negative [place] Reflex Ebv Comp [place] ([facility]) ID Date Data Source [id number] 04/12/2021 12:01:00 PM EDT [place] ([facility]) Name Value Range Interpretation Code Description Data Arlen rce(s) Supporting Document(s) free T4 0.92 NG/dL 0.76-1.46 Free T4 [facility]) ID Date Data Source [id number] 04/12/2021 12:01:00 PM EDT [facility]) Name Value Range Interpretation Code Description Data Arlen rce(s) Supporting Document(s) thyroid stimulating hormone 0.594 uIU/mL 0.358-3.740 Thyroid Stimulating Hormone [place] ([facility]) ID Date Data Source [id number] 04/12/2021 12:01:00 PM EDT [place] ([facility]) Name Value Range Interpretation Code Description Data Arlen rce(s) Supporting Document(s) glucose, fasting 76 mg/dL 70-100 Glucose, Fasting AT [facility]) blood urea nitrogen 11 mg/dL 7-18 Blood Urea Nitro gen [place] ([facility]) creatinine for GFR 0.79 mg/dL 0.55-1.30 Creatinine for GF R [place] ([facility]) potassium serum 4.1 mEq/L 3.5-5.1 Potassium Serum ATH NA ([facility]) sodium level 138 mEq/L 136-145 Sodium Level [place] ([facility]) glomerular filtration rate > 60.0 >60 Glomerula r Filtration Rate [place] ([facility]) carbon dioxide level 30 mEq/L 21-32 Carbon Dioxide Level [place] ([facility]) chloride level 103 mEq/L 98-107 Chloride Level [place] ([facility]) calcium level 9.1 mg/dL 8.5-10.1 Calcium Level [place] ( [facility]) anion gap 5 mEq/L 8-16 Below low normal Anion Gap [place] ( [facility]) ID Date Data Source [id number] 04/12/2021 12:01:00 PM EDT [place] ([facility]) Name Value Range Interpretation Code Description Data Arlen rce(s) Supporting Document(s) alkaline phosphatase 71 U/L 45-117 Alkaline Phosph atase [place] ([facility]) AST/SGOT 11 U/L 7-37 AST/SGOT [place] ([facility]) ALT/SGPT 16 U/L 12-78 ALT/SGPT [place] ([facility]) bilirubin,direct 0.2 mg/dL 0.0-0.2 Bilirubin,direct AT [place] ([facility]) bilirubin,total 0.9 mg/dL 0.2-1.0 Bilirubin,total ATHE NA ([facility]) total protein 8.0 gm/dL 6.4-8.2 Total Protein [place] ( [facility]) albumin 4.1 gm/dL 3.2-5.2 Albumin [place] ([facility]) albumin/globulin ratio 1.2-2.2 Below low normal Albumin /globulin Ratio [place] ([facility]) ID Date Data Source [id number] 04/12/2021 12:01:00 PM EDT [place] ([facility]) Name Value Range Interpretation Code Description Data Arlen rce(s) Supporting Document(s) white blood count 8.7 10 4.0-10.0 White Blood Count [place] ([facility]) red blood count 4.29 10 4.00-5.40 Red Blood Count [place] ([facility]) hemoglobin 13.2 g/dL 12.0-15.5 Hemoglobin [place] ([facility]) mean corpuscular volume 93.2 fL 80.0-96.0 Mean Corpusc ular Volume [place] ([facility]) hematocrit 40.0 % 36.0-47.0 Hematocrit [place] ([facility]) mean corpuscular hemoglobin 30.8 pg 27.0-33.0 Mean Cor puscular Hemoglobin [place] ([facility]) mean corpuscular HGB conc 33.0 g/dL 32.0-36.5 Mean Corpu scular HGB Conc [place] ([facility]) red cell distribution width 12.7 % 11.5-14.5 Red Cell Distribution Width [place] ([facility]) platelet count, automated 296 10 150-450 Platelet C ount, Automated [place] ([facility]) neutrophils % 63.4 % 36.0-66.0 Neutrophils % [place] ( [facility]) lymph % 28.4 % 24.0-44.0 Lymph % [place] ([facility]) mono % 7.3 % 2.0-8.0 [place] % [place] ([facility]) eos % 0.2 % 0.0-3.0 Eos % [place] ([facility]) immature granulocyte % 0.2 % 0-3.0 Immature Gran ulocyte % [place] ([facility]) baso % 0.5 % 0.0-1.0 Baso % [place] ([facility]) nucleated red blood cell % 0.0 % 0-0 Nucleated Red Blood Cell % [place] ([facility]) neutrophils # 5.5 10 1.5-8.5 Neutrophils # [place] ( [facility]) mono # 0.6 10 0.0-0.8 [place] # [place] ([facility]) lymph # 2.5 10 1.5-5.0 Lymph # [place] ([facility]) eos # 0.0 10 0.0-0.5 Eos # [place] ([facility]) baso # 0.0 10 0.0-0.2 Baso # [place] ([facility]) ID Date Data Source [id number] 04/12/2021 11:31:00 AM EDT [place] ([facility]) Name Value Range Interpretation Code Description Data Arlen rce(s) Supporting Document(s) ID Date Data Source [id number] 04/12/2021 11:31:00 AM EDT [facility]) Name Value Range Interpretation Code Description Data Arlen rce(s) Supporting Document(s) ID Date Data Source [id number] 04/12/2021 11:31:00 AM EDT [facility]) Name Value Range Interpretation Code Description Data Arlen rce(s) Supporting Document(s) ID Date Data Source [id number] 04/12/2021 11:31:00 AM EDT [facility] Name Value Range Interpretation Code Description Data Arlen rce(s) Supporting Document(s) SARS-CoV-2 (COVID 19) NEGATIVE - SARS-CoV-2 (COVID19) [facility] This lab was ordered by [facility] a nd reported by [facility]. ID Date Data Source [id number] 04/12/2021 11:31:00 AM EDT [place] ([facility]) Name Value Range Interpretation Code Description Data Arlen rce(s) Supporting Document(s) ID Date Data Source [id number] 04/12/2021 11:24:00 AM EDT [facility]) Name Value Range Interpretation Code Description Data Arlen rce(s) Supporting Document(s) mark strep A negative negative Mark Strep [facility]) ID Date Data Source [id number] 04/12/2021 11:24:00 AM EDT [facility]) Name Value Range Interpretation Code Description Data Arlen rce(s) Supporting Document(s) mark strep A negative negative [facility] Strep a [facility]) ID Date Data Source [id number] 04/12/2021 11:24:00 AM EDT [facility]) Name Value Range Interpretation Code Description Data Arlen rce(s) Supporting Document(s) mark strep A negative negative [facility] Strep a [facility]) ID Date Data Source [id number] 04/12/2021 11:24:00 AM EDT [facility]) Name Value Range Interpretation Code Description Data Arlen rce(s) Supporting Document(s) mark strep A negative negative [facility] Strep a [facility]) ID Date Data Source [id number] 04/05/2021 12:00:00 AM EDT [facility] Name Value Range Interpretation Code Description Data Arlen rce(s) Supporting Document(s) SARS-CoV2 Rapid Antigen Negative [facility] This lab was ordered by [facility] and reported by [facility] [place]. ID Date Data Source [id number] 03/14/2021 12:00:00 AM EDT [facility] Name Value Range Interpretation Code Description Data Arlen rce(s) Supporting Document(s) SARS-CoV2 Rapid Antigen Negative [facility] This lab was reported by [facility]. ID Date Data Source [id number] 03/01/2021 11:19:00 AM EDT [facility] ([facility]) Name Value Range Interpretation Code Description Data Arlen rce(s) Supporting Document(s) Group A Strep Culture Laboratory test result [facility] ([facility], [facility]) FULL REPORT IN LAB NOTES ([facility] and [facility] ). NEGATIVE FOR STREP PYOGENES (GROUP A) ID Date Data Source [id number] 03/01/2021 12:00:00 AM [facility] Name Value Range Interpretation Code Description Data Arlen rce(s) Supporting Document(s) SARS-CoV2 Rapid Antigen Negative [facility] This lab was ordered by [facility] and reported by [facility]. ID Date Data Source [id number] 01/22/2021 01:00:00 PM EST [place] ([facility]) Name Value Range Interpretation Code Description Data Arlen rce(s) Supporting Document(s) D-dimer quant 412.19 NG/mL <500 D-dimer Quant [facility]) ID Date Data Source [id number] 01/22/2021 01:00:00 PM EST [place] ([facility]) Name Value Range Interpretation Code Description Data Arlen rce(s) Supporting Document(s) partial thromboplastin time 29.5 seconds 24.2-38.5 Partial Thromboplastin Time [facility]) ID Date Data Source [id number] 01/22/2021 01:00:00 [facility] Name Value Range Interpretation Code Description Data Arlen rce(s) Supporting Document(s) prothrombin time 13.1 seconds 12.5-14.3 Prothrombin Time [place] ([facility]) INR Inr [place] ([facility]) ID Date Data Source [id number] 01/22/2021 01:00:00 PM EST [place] ([facility]) Name Value Range Interpretation Code Description Data Arlen rce(s) Supporting Document(s) D-dimer quant 412.19 NG/mL <500 D-dimer Quant [place] ([facility]) ID Date Data Source [id number] 01/22/2021 01:00:00 PM EST [place] ([facility]) Name Value Range Interpretation Code Description Data Arlen rce(s) Supporting Document(s) partial thromboplastin time 29.5 seconds 24.2-38.5 Partial Thromboplastin Time [place] ([facility]) ID Date Data Source [id number] 01/22/2021 01:00:00 PM EST [place] ([facility]) Name Value Range Interpretation Code Description Data Arlen rce(s) Supporting Document(s) prothrombin time 13.1 seconds 12.5-14.3 Prothrombin Time [place] ([facility]) INR Inr [place] ([facility]) ID Date Data Source [id number] 01/22/2021 01:00:00 PM EST [place] ([facility]) Name Value Range Interpretation Code Description Data Arlen rce(s) Supporting Document(s) D-dimer quant 412.19 NG/mL <500 D-dimer Quant [place] ([facility]) ID Date Data Source [id number] 01/22/2021 01:00:00 PM EST [place] ([facility]) Name Value Range Interpretation Code Description Data Arlen rce(s) Supporting Document(s) partial thromboplastin time 29.5 seconds 24.2-38.5 Partial Thromboplastin Time [place] ([facility]) ID Date Data Source [id number] 01/22/2021 01:00:00 PM EST [place] ([facility]) Name Value Range Interpretation Code Description Data Arlen rce(s) Supporting Document(s) prothrombin time 13.1 seconds 12.5-14.3 Prothrombin Time [place] ([facility]) INR Inr [place] ([facility]) ID Date Data Source [id number] 01/22/2021 01:00:00 PM EST [place] ([facility]) Name Value Range Interpretation Code Description Data Arlen rce(s) Supporting Document(s) D-dimer quant 412.19 NG/mL <500 [facility] ID Date Data Source [id number] 01/22/2021 01:00:00 PM EST [place] ([facility]) Name Value Range Interpretation Code Description Data Arlen rce(s) Supporting Document(s) partial thromboplastin time 29.5 seconds 24.2-38.5 Partial Thromboplastin Time [place] ([facility]) ID Date Data Source [id number] 01/22/2021 01:00:00 PM EST [place] ([facility]) Name Value Range Interpretation Code Description Data Arlen rce(s) Supporting Document(s) INR Inr [place] ([facility]) prothrombin time 13.1 seconds 12.5-14.3 Prothrombin Time [place] ([facility]) ID Date Data Source [id number] 01/22/2021 01:00:00 PM EST [place] ([facility]) Name Value Range Interpretation Code Description Data Arlen rce(s) Supporting Document(s) D-dimer quant 412.19 NG/mL <500 D-dimer Quant [place] ([facility]) ID Date Data Source [id number] 01/22/2021 01:00:00 PM EST [place] ([facility]) Name Value Range Interpretation Code Description Data Arlen rce(s) Supporting Document(s) partial thromboplastin time 29.5 seconds 24.2-38.5 Partial Thromboplastin Time [place] ([facility]) ID Date Data Source [id number] 01/22/2021 01:00:00 PM EST [place] ([facility]) Name Value Range Interpretation Code Description Data Arlen rce(s) Supporting Document(s) INR Inr [place] ([facility]) prothrombin time 13.1 seconds 12.5-14.3 Prothrombin Time [place] ([facility]) ID Date Data Source [id number] 01/22/2021 12:45:00 PM EST [place] ([facility]) Name Value Range Interpretation Code Description Data Arlen rce(s) Supporting Document(s) istat B-HCG < 5.0 Istat B-HCG [place] ([facility]) ID Date Data Source [id number] 01/22/2021 12:45:00 PM EST [place] ([facility]) Name Value Range Interpretation Code Description Data Arlen rce(s) Supporting Document(s) istat B-HCG < 5.0 Istat B-HCG [place] ([facility]) ID Date Data Source [id number] 01/22/2021 12:45:00 PM EST [place] ([facility]) Name Value Range Interpretation Code Description Data Arlen rce(s) Supporting Document(s) istat B-HCG < 5.0 Istat B-HCG [place] ([facility]) ID Date Data Source [id number] 01/22/2021 12:45:00 PM EST [place] ([facility]) Name Value Range Interpretation Code Description Data Arlen rce(s) Supporting Document(s) istat B-HCG < 5.0 Istat B-HCG [place] ([facility]) ID Date Data Source [id number] 01/22/2021 12:45:00 PM EST [place] ([facility]) Name Value Range Interpretation Code Description Data Arlen rce(s) Supporting Document(s) istat B-HCG < 5.0 Istat B-HCG [place] ([facility]) ID Date Data Source [id number] 01/22/2021 12:42:00 PM EST [place] ([facility]) Name Value Range Interpretation Code Description Data Arlen rce(s) Supporting Document(s) istat HCT 41.0 % 38.0-51.0 Istat HCT [place] ([facility]) istat glucose 83 mg/dL 70-105 Istat Glucose [place] ( [facility]) istat sodium 138 mEq/L 136-145 Istat Sodium [place] ([facility]) istat potassium 4.6 mEq/L 3.5-5.1 Istat Potassium AT[facility] [place] ([facility]) istat Ca++ 4.9 mg/dL 4.5-5.3 Istat Ca++ [place] ([facility]) istat chloride 99 mEq/L 98-109 Istat Chloride [place] ([facility]) istat CO2 31.0 mm/L 23.0-27.0 Above high normal Istat CO2 [place] ([facility]) istat BUN 9 mg/dL 8-26 Istat BUN [place] ([facility]) istat creatinine 0.8 mg/dL 0.6-1.3 Istat Creatinine AT [facility] ([facility]) ID Date Data Source [id number] 01/22/2021 12:42:00 PM EST [place] ([facility]) Name Value Range Interpretation Code Description Data Arlen rce(s) Supporting Document(s) istat HCT 41.0 % 38.0-51.0 Istat HCT [place] ([facility]) istat glucose 83 mg/dL 70-105 Istat Glucose [place] ( [facility]) istat sodium 138 mEq/L 136-145 Istat Sodium [place] (No [facility]) istat Ca++ 4.9 mg/dL 4.5-5.3 Istat Ca++ [place] ([facility]) istat potassium 4.6 mEq/L 3.5-5.1 Istat Potassium [place] NA ([facility]) istat chloride 99 mEq/L 98-109 Istat Chloride [place] ([facility]) istat CO2 31.0 mm/L 23.0-27.0 Above high normal Istat CO2 [place] ([facility]) istat creatinine 0.8 mg/dL 0.6-1.3 Istat Creatinine AT [place] ([facility]) istat BUN 9 mg/dL 8-26 Istat BUN [place] ([facility]) ID Date Data Source [id number] 01/22/2021 12:42:00 PM EST [place] ([facility]) Name Value Range Interpretation Code Description Data Arlen rce(s) Supporting Document(s) istat sodium 138 mEq/L 136-145 Istat Sodium [place] ([facility]) istat HCT 41.0 % 38.0-51.0 Istat HCT [place] ([facility]) istat glucose 83 mg/dL 70-105 Istat Glucose [place] ( [facility]) istat Ca++ 4.9 mg/dL 4.5-5.3 Istat Ca++ [place] ([facility]) istat potassium 4.6 mEq/L 3.5-5.1 Istat Potassium [place] ([facility]) istat chloride 99 mEq/L 98-109 Istat Chloride [place] ([facility]) istat CO2 31.0 mm/L 23.0-27.0 Above high normal Istat CO2 [place] ([facility]) istat BUN 9 mg/dL 8-26 Istat BUN [place] ([facility]) istat creatinine 0.8 mg/dL 0.6-1.3 Istat Creatinine AT [facility]) ID Date Data Source [id number] 01/22/2021 12:42:00 PM EST [place] ([facility]) Name Value Range Interpretation Code Description Data Arlen rce(s) Supporting Document(s) istat HCT 41.0 % 38.0-51.0 Istat HCT [place] ([facility]) istat glucose 83 mg/dL 70-105 Istat Glucose [place] ( [facility]) istat sodium 138 mEq/L 136-145 Istat Sodium [place] ([facility]) istat Ca++ 4.9 mg/dL 4.5-5.3 Istat Ca++ [place] ([facility]) istat potassium 4.6 mEq/L 3.5-5.1 Istat Potassium [place] ([facility]) istat chloride 99 mEq/L 98-109 Istat Chloride [place] ([facility]) istat CO2 31.0 mm/L 23.0-27.0 Above high normal Istat CO2 [place] ([facility]) istat creatinine 0.8 mg/dL 0.6-1.3 Istat Creatinine AT [facility]) istat BUN 9 mg/dL 8-26 Istat BUN [place] ([facility]) ID Date Data Source [id number] 01/22/2021 12:42:00 PM EST [place] ([facility]) Name Value Range Interpretation Code Description Data Arlen rce(s) Supporting Document(s) istat glucose 83 mg/dL 70-105 Istat Glucose [place] ( [facility]) istat HCT 41.0 % 38.0-51.0 Istat HCT [place] ([facility]) istat sodium 138 mEq/L 136-145 Istat Sodium [place] ([facility]) istat Ca++ 4.9 mg/dL 4.5-5.3 Istat Ca++ [place] ([facility]) istat potassium 4.6 mEq/L 3.5-5.1 Istat Potassium [place] ([facility]) istat CO2 31.0 mm/L 23.0-27.0 Above high normal Istat CO2 [place] ([facility]) istat chloride 99 mEq/L 98-109 Istat Chloride [place] ([facility]) istat BUN 9 mg/dL 8-26 Istat BUN [place] ([facility]) istat creatinine 0.8 mg/dL 0.6-1.3 Istat Creatinine AT [place] ([facility]) ID Date Data Source [id number] 01/22/2021 12:23:00 PM EST [facility]) Name Value Range Interpretation Code Description Data Arlen rce(s) Supporting Document(s) mark covid antigen negative negative Mark Covid Anti gen [place] ([facility]) ID Date Data Source [id number] 01/22/2021 12:23:00 PM EST [place] ([facility]) Name Value Range Interpretation Code Description Data Arlen rce(s) Supporting Document(s) mark covid antigen negative negative Mark Covid Anti gen [place] ([facility]) ID Date Data Source [id number] 01/22/2021 12:23:00 PM EST [place] ([facility]) Name Value Range Interpretation Code Description Data Arlen rce(s) Supporting Document(s) mark covid antigen negative negative Mark Covid Anti gen [place] ([facility]) ID Date Data Source [id number] 01/22/2021 12:23:00 PM EST [place] ([facility]) Name Value Range Interpretation Code Description Data Arlen rce(s) Supporting Document(s) mark covid antigen negative negative Mark Covid Anti gen [place] ([facility]) ID Date Data Source [id number] 01/22/2021 12:23:00 PM EST [facility] Name Value Range Interpretation Code Description Data Arlen rce(s) Supporting Document(s) SARS COVID ANTIGEN NEGATIVE [facility] This lab was ordered by TAMEKA calderon nd reported by [facility]. ID Date Data Source [id number] 01/22/2021 12:23:00 PM EST [place] ([facility]) Name Value Range Interpretation Code Description Data Arlen rce(s) Supporting Document(s) mark covid antigen negative negative Mark Covid Anti gen [place] ([facility]) ID Date Data Source [id number] 01/22/2021 11:29:00 AM EST [place] ([facility]) Name Value Range Interpretation Code Description Data Arlen rce(s) Supporting Document(s) C reactive protein quantitativ 0.52 mg/dL 0.00-0.30 Above high normal C Reactive Protein Quantitativ [place] ([facility]) ID Date Data Source [id number] 01/22/2021 11:29[facility]00 [facility] Name Value Range Interpretation Code Description Data Arlen rce(s) Supporting Document(s) mono scrn negative negative [place] Scrn [place] ([facility]) ID Date Data Source [id number] 01/22/2021 11:29:00 AM EST [place] ([facility]) Name Value Range Interpretation Code Description Data Arlen rce(s) Supporting Document(s) blood urea nitrogen 10 mg/dL 7-18 Blood Urea Nitro gen [place] ([facility]) glucose, fasting 80 mg/dL 70-100 Glucose, Fasting AT [facility] ([facility]) glomerular filtration rate > 60.0 >60 Glomerula r Filtration Rate [place] ([facility]) creatinine for GFR 0.85 mg/dL 0.55-1.30 Creatinine for GF R [place] ([facility]) sodium level 137 mEq/L 136-145 Sodium Level [place] ([facility]) chloride level 103 mEq/L 98-107 Chloride Level [place] ([facility]) potassium serum 4.7 mEq/L 3.5-5.1 Potassium Serum [place] ([facility]) carbon dioxide level 30 mEq/L 21-32 Carbon Dioxide Level [place] ([facility]) calcium level 9.1 mg/dL 8.5-10.1 Calcium Level [place] ( [facility]) anion gap 4 mEq/L 8-16 Below low normal Anion Gap [place] ( [facility]) ID Date Data Source [id number] 01/22/2021 11:29:00 AM EST [place] ([facility]) Name Value Range Interpretation Code Description Data Arlen rce(s) Supporting Document(s) AST/SGOT 16 U/L 7-37 AST/SGOT [place] ([facility]) alkaline phosphatase 89 U/L 45-117 Alkaline Phosph atase [place] ([facility]) ALT/SGPT 18 U/L 12-78 ALT/SGPT [place] ([facility]) total protein 8.0 gm/dL 6.4-8.2 Total Protein [place] ( [facility]) bilirubin,total 0.6 mg/dL 0.2-1.0 [facility] bil[facility],direct 0.2 mg/dL 0.0-0.2 Bilirubin,direct AT [facility] ([facility]) albumin/globulin ratio 1.2-2.2 Below low normal Albumin /globulin Ratio [place] ([facility]) albumin 3.9 gm/dL 3.2-5.2 Albumin [place] ([facility]) ID Date Data Source [id number] 01/22/2021 11:29:00 AM EST [place] ([facility]) Name Value Range Interpretation Code Description Data Arlen rce(s) Supporting Document(s) erythrocyte sedimentation rate 23 mm/HR 0-20 Above high normal Erythrocyte Sedimentation Rate [place] ([facility]) ID Date Data Source [id number] 01/22/2021 11:29:00 AM EST [place] ([facility]) Name Value Range Interpretation Code Description Data Arlen rce(s) Supporting Document(s) white blood count 6.9 10 4.0-10.0 White Blood Count [place] ([facility]) red blood count 4.43 10 4.00-5.40 Red Blood Count [place] NA ([facility]) hemoglobin 13.3 g/dL 12.0-15.5 Hemoglobin [place] ([facility]) mean corpuscular volume 92.3 fL 80.0-96.0 Mean Corpusc ular Volume [place] ([facility]) hematocrit 40.9 % 36.0-47.0 Hematocrit [place] ([facility]) mean corpuscular hemoglobin 30.0 pg 27.0-33.0 Mean Cor puscular Hemoglobin [place] ([facility]) mean corpuscular HGB conc 32.5 g/dL 32.0-36.5 Mean Corpu scular HGB Conc [place] ([facility]) red cell distribution width 12.6 % 11.5-14.5 Red Cell Distribution Width [place] ([facility]) platelet count, automated 299 10 150-450 Platelet C ount, Automated [place] ([facility]) neutrophils % 52.0 % 36.0-66.0 Neutrophils % [place] ( [facility]) lymph % 38.0 % 24.0-44.0 Lymph % [place] ([facility]) mono % 7.8 % 2.0-8.0 [place] % [place] ([facility]) eos % 1.5 % 0.0-3.0 Eos % [place] ([facility]) baso % 0.7 % 0.0-1.0 Baso % [place] ([facility]) nucleated red blood cell % 0.0 % 0-0 Nucleated Red Blood Cell % [place] ([facility]) immature granulocyte % 0.0 % 0-3.0 Immature Gran ulocyte % [place] ([facility]) neutrophils # 3.6 10 1.5-8.5 Neutrophils # [place] ( [facility]) mono # 0.5 10 0.0-0.8 [place] # [place] ([facility]) lymph # 2.6 10 1.5-5.0 Lymph # [place] ([facility]) eos # 0.1 10 0.0-0.5 Eos # [place] ([facility]) baso # 0.1 10 0.0-0.2 Baso # [place] ([facility]) ID Date Data Source [id number] 01/22/2021 11:29:00 AM EST [place] ([facility]) Name Value Range Interpretation Code Description Data Arlen rce(s) Supporting Document(s) C reactive protein quantitativ 0.52 mg/dL 0.00-0.30 Above high normal C Reactive Protein Quantitativ [place] ([facility]) ID Date Data Source [id number] 01/22/2021 11:29:00 AM EST [place] ([facility]) Name Value Range Interpretation Code Description Data Arlen rce(s) Supporting Document(s) mono scrn negative negative [place] Scrn [place] ([facility]) ID Date Data Source [id number] 01/22/2021 11:29:00 AM EST [place] ([facility]) Name Value Range Interpretation Code Description Data Arlen rce(s) Supporting Document(s) glucose, fasting 80 mg/dL 70-100 Glucose, Fasting AT [facility] ([facility]) blood urea nitrogen 10 mg/dL 7-18 Blood Urea Nitro gen [place] ([facility]) creatinine for GFR 0.85 mg/dL 0.55-1.30 Creatinine for GF R [place] ([facility]) glomerular filtration rate > 60.0 >60 Glomerula r Filtration Rate [place] ([facility]) sodium level 137 mEq/L 136-145 Sodium Level [place] ([facility]) potassium serum 4.7 mEq/L 3.5-5.1 Potassium Serum A[place] NA ([facility]) chloride level 103 mEq/L 98-107 Chloride Level [place] ([facility]) carbon dioxide level 30 mEq/L 21-32 Carbon Dioxide Level [place] ([facility]) anion gap 4 mEq/L 8-16 Below low normal Anion Gap [place] ( [facility]) calcium level 9.1 mg/dL 8.5-10.1 Calcium Level [place] ( [facility]) ID Date Data Source [id number] 01/22/2021 11:29:00 AM EST [facility]) Name Value Range Interpretation Code Description Data Arlen rce(s) Supporting Document(s) AST/SGOT 16 U/L 7-37 AST/SGOT [place] ([facility]) ALT/SGPT 18 U/L 12-78 ALT/SGPT [place] ([facility]) alkaline phosphatase 89 U/L 45-117 Alkaline Phosph atase [place] ([facility]) bilirubin,total 0.6 mg/dL 0.2-1.0 [facility] bilirubin,direct 0.2 mg/dL 0.0-0.2 Bilirubin,direct AT [facility] ([facility]) albumin 3.9 gm/dL 3.2-5.2 Albumin [place] ([facility]) total protein 8.0 gm/dL 6.4-8.2 Total Protein [place] ( [facility]) albumin/globulin ratio 1.2-2.2 Below low normal Albumin /globulin Ratio [place] ([facility]) ID Date Data Source [id number] 01/22/2021 11:29:00 AM EST [place] ([facility]) Name Value Range Interpretation Code Description Data Arlen rce(s) Supporting Document(s) erythrocyte sedimentation rate 23 mm/HR 0-20 Above high normal Erythrocyte Sedimentation Rate [place] ([facility]) ID Date Data Source [id number] 01/22/2021 11:29:00 AM EST [place] ([facility]) Name Value Range Interpretation Code Description Data Arlen rce(s) Supporting Document(s) red blood count 4.43 10 4.00-5.40 Red Blood Count [place] ([facility]) white blood count 6.9 10 4.0-10.0 White Blood Count [place] ([facility]) mean corpuscular volume 92.3 fL 80.0-96.0 Mean Corpusc ular Volume [place] ([facility]) hematocrit 40.9 % 36.0-47.0 Hematocrit [place] ([facility]) hemoglobin 13.3 g/dL 12.0-15.5 Hemoglobin [place] ([facility]) mean corpuscular HGB conc 32.5 g/dL 32.0-36.5 Mean Corpu scular HGB Conc [place] ([facility]) mean corpuscular hemoglobin 30.0 pg 27.0-33.0 Mean Cor puscular Hemoglobin [place] ([facility]) red cell distribution width 12.6 % 11.5-14.5 Red Cell Distribution Width [place] ([facility]) platelet count, automated 299 10 150-450 Platelet C ount, Automated [place] ([facility]) neutrophils % 52.0 % 36.0-66.0 Neutrophils % [place] ( [facility]) lymph % 38.0 % 24.0-44.0 Lymph % [place] ([facility]) mono % 7.8 % 2.0-8.0 [place] % [place] ([facility]) eos % 1.5 % 0.0-3.0 Eos % [place] ([facility]) immature granulocyte % 0.0 % 0-3.0 Immature Gran ulocyte % [place] ([facility]) baso % 0.7 % 0.0-1.0 Baso % [place] ([facility]) nucleated red blood cell % 0.0 % 0-0 Nucleated Red Blood Cell % [place] ([facility]) neutrophils # 3.6 10 1.5-8.5 Neutrophils # [place] ( [facility]) eos # 0.1 10 0.0-0.5 Eos # [place] ([facility]) mono # 0.5 10 0.0-0.8 [place] # [place] ([facility]) lymph # 2.6 10 1.5-5.0 Lymph # [place] ([facility]) baso # 0.1 10 0.0-0.2 Baso # [place] ([facility]) ID Date Data Source [id number] 01/22/2021 11:29:00 AM EST [place] ([facility]) Name Value Range Interpretation Code Description Data Arlen rce(s) Supporting Document(s) C reactive protein quantitativ 0.52 mg/dL 0.00-0.30 Above high normal C Reactive Protein Quantitativ [place] ([facility]) ID Date Data Source [id number] 01/22/2021 11:29:00 AM EST [place] ([facility]) Name Value Range Interpretation Code Description Data Arlen rce(s) Supporting Document(s) mono scrn negative negative [place] Scrn [place] ([facility]) ID Date Data Source [id number] 01/22/2021 11:29:00 AM EST [place] ([facility]) Name Value Range Interpretation Code Description Data Arlen rce(s) Supporting Document(s) blood urea nitrogen 10 mg/dL 7-18 Blood Urea Nitro gen [place] ([facility]) glucose, fasting 80 mg/dL 70-100 Glucose, Fasting AT [facility] ([facility]) glomerular filtration rate > 60.0 >60 Glomerula r Filtration Rate [place] ([facility]) creatinine for GFR 0.85 mg/dL 0.55-1.30 Creatinine for GF R [place] ([facility]) chloride level 103 mEq/L 98-107 Chloride Level [place] ([facility]) sodium level 137 mEq/L 136-145 Sodium Level [place] ([facility]) potassium serum 4.7 mEq/L 3.5-5.1 Potassium Serum [place] NA ([facility]) carbon dioxide level 30 mEq/L 21-32 Carbon Dioxide Level [place] ([facility]) anion gap 4 mEq/L 8-16 Below low normal Anion Gap [place] ( [facility]) calcium level 9.1 mg/dL 8.5-10.1 Calcium Level [place] ( [facility]) ID Date Data Source [id number] 01/22/2021 11:29:00 AM EST [place] ([facility]) Name Value Range Interpretation Code Description Data Arlen rce(s) Supporting Document(s) alkaline phosphatase 89 U/L 45-117 Alkaline Phosph atase [place] ([facility]) AST/SGOT 16 U/L 7-37 AST/SGOT [place] ([facility]) ALT/SGPT 18 U/L 12-78 ALT/SGPT [place] ([facility]) bilirubin,direct 0.2 mg/dL 0.0-0.2 Bilirubin,direct AT [facility] ([facility]) total protein 8.0 gm/dL 6.4-8.2 Total Protein [place] ( [facility]) bilirubin,total 0.6 mg/dL 0.2-1.0 Bilirubin,total [place] ([facility]) albumin 3.9 gm/dL 3.2-5.2 Albumin [place] ([facility]) albumin/globulin ratio 1.2-2.2 Below low normal Albumin /globulin Ratio [place] ([facility]) ID Date Data Source [id number] 01/22/2021 11:29:00 AM EST [place] ([facility]) Name Value Range Interpretation Code Description Data Arlen rce(s) Supporting Document(s) erythrocyte sedimentation rate 23 mm/HR 0-20 Above high normal Erythrocyte Sedimentation Rate [place] ([facility]) ID Date Data Source [id number] 01/22/2021 11:29:00 AM EST [place] ([facility]) Name Value Range Interpretation Code Description Data Arlen rce(s) Supporting Document(s) white blood count 6.9 10 4.0-10.0 White Blood Count [place] ([facility]) red blood count 4.43 10 4.00-5.40 Red Blood Count [place] ([facility]) hemoglobin 13.3 g/dL 12.0-15.5 Hemoglobin [place] ([facility]) mean corpuscular volume 92.3 fL 80.0-96.0 Mean Corpusc ular Volume [place] ([facility]) mean corpuscular hemoglobin 30.0 pg 27.0-33.0 Mean Cor puscular Hemoglobin [place] ([facility]) hematocrit 40.9 % 36.0-47.0 Hematocrit [place] ([facility]) red cell distribution width 12.6 % 11.5-14.5 Red Cell Distribution Width [place] ([facility]) mean corpuscular HGB conc 32.5 g/dL 32.0-36.5 Mean Corpu scular HGB Conc [place] ([facility]) neutrophils % 52.0 % 36.0-66.0 Neutrophils % [place] ( [facility]) platelet count, automated 299 10 150-450 Platelet C ount, Automated [place] ([facility]) lymph % 38.0 % 24.0-44.0 Lymph % [place] ([facility]) mono % 7.8 % 2.0-8.0 [place] % [place] ([facility]) eos % 1.5 % 0.0-3.0 Eos % [place] ([facility]) baso % 0.7 % 0.0-1.0 Baso % [place] ([facility]) nucleated red blood cell % 0.0 % 0-0 Nucleated Red Blood Cell % [place] ([facility]) immature granulocyte % 0.0 % 0-3.0 Immature Gran ulocyte % [place] ([facility]) lymph # 2.6 10 1.5-5.0 Lymph # [place] ([facility]) neutrophils # 3.6 10 1.5-8.5 Neutrophils # [place] ( [facility]) mono # 0.5 10 0.0-0.8 [place] # [place] ([facility]) baso # 0.1 10 0.0-0.2 Baso # [place] ([facility]) eos # 0.1 10 0.0-0.5 Eos # [place] ([facility]) ID Date Data Source [id number] 01/22/2021 11:29:00 AM EST [place] ([facility]) Name Value Range Interpretation Code Description Data Arlen rce(s) Supporting Document(s) C reactive protein quantitativ 0.52 mg/dL 0.00-0.30 Above high normal C Reactive Protein Quantitativ [place] ([facility]) ID Date Data Source [id number] 01/22/2021 11:29:00 AM EST [place] ([facility]) Name Value Range Interpretation Code Description Data Arlen rce(s) Supporting Document(s) mono scrn negative negative [place] Scrn [place] ([facility]) ID Date Data Source [id number] 01/22/2021 11:29:00 AM EST [place] ([facility]) Name Value Range Interpretation Code Description Data Arlen rce(s) Supporting Document(s) glucose, fasting 80 mg/dL 70-100 Glucose, Fasting AT [facility] ([facility]) blood urea nitrogen 10 mg/dL 7-18 Blood Urea Nitro gen [place] ([facility]) creatinine for GFR 0.85 mg/dL 0.55-1.30 Creatinine for GF R [place] ([facility]) glomerular filtration rate > 60.0 >60 Glomerula r Filtration Rate [place] ([facility]) sodium level 137 mEq/L 136-145 Sodium Level [place] (No [facility]) potassium serum 4.7 mEq/L 3.5-5.1 Potassium Serum [place] NA ([facility]) chloride level 103 mEq/L 98-107 Chloride Level [place] ([facility]) carbon dioxide level 30 mEq/L 21-32 Carbon Dioxide Level [place] ([facility]) anion gap 4 mEq/L 8-16 Below low normal Anion Gap [place] ( [facility]) calcium level 9.1 mg/dL 8.5-10.1 Calcium Level [place] ( [facility]) ID Date Data Source [id number] 01/22/2021 11:29:00 AM EST [place] ([facility]) Name Value Range Interpretation Code Description Data Arlen rce(s) Supporting Document(s) AST/SGOT 16 U/L 7-37 AST/SGOT [place] ([facility]) ALT/SGPT 18 U/L 12-78 ALT/SGPT [place] ([facility]) alkaline phosphatase 89 U/L 45-117 Alkaline Phosph atase [place] ([facility]) bilirubin,total 0.6 mg/dL 0.2-1.0 Bilirubin,total [place] NA ([facility]) total protein 8.0 gm/dL 6.4-8.2 Total Protein [place] ( [facility]) albumin 3.9 gm/dL 3.2-5.2 Albumin [place] ([facility]) bilirubin,direct 0.2 mg/dL 0.0-0.2 Bilirubin,direct AT [place] ([facility]) albumin/globulin ratio 1.2-2.2 Below low normal Albumin /globulin Ratio [place] ([facility]) ID Date Data Source [id number] 01/22/2021 11:29:00 AM EST [place] ([facility]) Name Value Range Interpretation Code Description Data Arlen rce(s) Supporting Document(s) erythrocyte sedimentation rate 23 mm/HR 0-20 Above high normal Erythrocyte Sedimentation Rate [place] ([facility]) ID Date Data Source [id number] 01/22/2021 11:29:00 AM EST [place] ([facility]) Name Value Range Interpretation Code Description Data Arlen rce(s) Supporting Document(s) white blood count 6.9 10 4.0-10.0 White Blood Count [place] ([facility]) hemoglobin 13.3 g/dL 12.0-15.5 Hemoglobin [place] ([facility]) red blood count 4.43 10 4.00-5.40 Red Blood Count [place] ([facility]) mean corpuscular volume 92.3 fL 80.0-96.0 Mean Corpusc ular Volume [place] ([facility]) hematocrit 40.9 % 36.0-47.0 Hematocrit [place] ([facility]) mean corpuscular hemoglobin 30.0 pg 27.0-33.0 Mean Cor puscular Hemoglobin [place] ([facility]) red cell distribution width 12.6 % 11.5-14.5 Red Cell Distribution Width [place] ([facility]) mean corpuscular HGB conc 32.5 g/dL 32.0-36.5 Mean Corpu scular HGB Conc [place] ([facility]) neutrophils % 52.0 % 36.0-66.0 Neutrophils % [place] ( [facility]) platelet count, automated 299 10 150-450 Platelet C ount, Automated [place] ([facility]) lymph % 38.0 % 24.0-44.0 Lymph % [place] ([facility]) eos % 1.5 % 0.0-3.0 Eos % [place] ([facility]) mono % 7.8 % 2.0-8.0 [place] % [place] ([facility]) nucleated red blood cell % 0.0 % 0-0 Nucleated Red Blood Cell % [place] ([facility]) immature granulocyte % 0.0 % 0-3.0 Immature Gran ulocyte % [place] ([facility]) baso % 0.7 % 0.0-1.0 Baso % [place] ([facility]) neutrophils # 3.6 10 1.5-8.5 Neutrophils # [place] ( [facility]) lymph # 2.6 10 1.5-5.0 Lymph # [place] ([facility]) mono # 0.5 10 0.0-0.8 [place] # [place] ([facility]) baso # 0.1 10 0.0-0.2 Baso # [place] ([facility]) eos # 0.1 10 0.0-0.5 Eos # [place] ([facility]) ID Date Data Source [id number] 01/22/2021 11:29:00 AM EST [place] ([facility]) Name Value Range Interpretation Code Description Data Arlen rce(s) Supporting Document(s) C reactive protein quantitativ 0.52 mg/dL 0.00-0.30 Above high normal C Reactive Protein Quantitativ [place] ([facility]) ID Date Data Source [id number] 01/22/2021 11:29:00 AM EST [place] ([facility]) Name Value Range Interpretation Code Description Data Arlen rce(s) Supporting Document(s) mono scrn negative negative [place] Scrn [place] ([facility]) ID Date Data Source [id number] 01/22/2021 11:29:00 AM EST [place] ([facility]) Name Value Range Interpretation Code Description Data Arlen rce(s) Supporting Document(s) glucose, fasting 80 mg/dL 70-100 Glucose, Fasting AT [facility] ([facility]) blood urea nitrogen 10 mg/dL 7-18 Blood Urea Nitro gen [place] ([facility] [facility] level 137 mEq/L 136-145 Sodium Level [place] (No [facility]) creatinine for GFR 0.85 mg/dL 0.55-1.30 Creatinine for GF R [place] ([facility]) glomerular filtration rate > 60.0 >60 Glomerula r Filtration Rate [place] ([facility]) chloride level 103 mEq/L 98-107 Chloride Level [place] ([facility]) carbon dioxide level 30 mEq/L 21-32 Carbon Dioxide Level [place] ([facility]) potassium serum 4.7 mEq/L 3.5-5.1 Potassium Serum ATHE NA ([facility]) anion gap 4 mEq/L 8-16 Below low normal Anion Gap [place] ( [facility]) calcium level 9.1 mg/dL 8.5-10.1 Calcium Level [place] ( [facility]) ID Date Data Source [id number] 01/22/2021 11:29:00 AM EST [place] ([facility]) Name Value Range Interpretation Code Description Data Arlen rce(s) Supporting Document(s) AST/SGOT 16 U/L 7-37 AST/SGOT [place] ([facility]) ALT/SGPT 18 U/L 12-78 ALT/SGPT [place] ([facility]) bilirubin,total 0.6 mg/dL 0.2-1.0 Bilirubin,total ATHE ([facility]) alkaline phosphatase 89 U/L 45-117 Alkaline Phosph atase [place] ([facility]) total protein 8.0 gm/dL 6.4-8.2 Total Protein [place] ( [facility]) albumin 3.9 gm/dL 3.2-5.2 Albumin [place] ([facility]) bilirubin,direct 0.2 mg/dL 0.0-0.2 Bilirubin,direct AT [facility]) albumin/globulin ratio 1.2-2.2 Below low normal Albumin /globulin Ratio [place] ([facility]) ID Date Data Source [id number] 01/22/2021 11:29:00 AM EST [place] ([facility]) Name Value Range Interpretation Code Description Data Arlen rce(s) Supporting Document(s) erythrocyte sedimentation rate 23 mm/HR 0-20 Above high normal Erythrocyte Sedimentation Rate [place] ([facility]) ID Date Data Source [id number] 01/22/2021 11:29:00 AM EST [place] ([facility]) Name Value Range Interpretation Code Description Data Arlen rce(s) Supporting Document(s) red blood count 4.43 10 4.00-5.40 Red Blood Count AT[place] ([facility]) white blood count 6.9 10 4.0-10.0 White Blood Count [place] ([facility]) hemoglobin 13.3 g/dL 12.0-15.5 Hemoglobin [place] ([facility]) hematocrit 40.9 % 36.0-47.0 Hematocrit [place] ([facility]) mean corpuscular HGB conc 32.5 g/dL 32.0-36.5 Mean Corpu scular HGB Conc [place] ([facility]) mean corpuscular hemoglobin 30.0 pg 27.0-33.0 Mean Cor puscular Hemoglobin [place] ([facility]) mean corpuscular volume 92.3 fL 80.0-96.0 Mean Corpusc ular Volume [place] ([facility]) red cell distribution width 12.6 % 11.5-14.5 Red Cell Distribution Width [place] ([facility]) platelet count, automated 299 10 150-450 Platelet C ount, Automated [place] ([facility]) neutrophils % 52.0 % 36.0-66.0 Neutrophils % [place] ( [facility]) mono % 7.8 % 2.0-8.0 [place] % [place] ([facility]) lymph % 38.0 % 24.0-44.0 Lymph % [place] ([facility]) eos % 1.5 % 0.0-3.0 Eos % [place] ([facility]) baso % 0.7 % 0.0-1.0 Baso % [place] ([facility]) neutrophils # 3.6 10 1.5-8.5 Neutrophils # [place] ( [facility]) immature granulocyte % 0.0 % 0-3.0 Immature Gran ulocyte % [place] ([facility]) nucleated red blood cell % 0.0 % 0-0 Nucleated Red Blood Cell % [place] ([facility]) mono # 0.5 10 0.0-0.8 [place] # [place] ([facility]) lymph # 2.6 10 1.5-5.0 Lymph # [place] ([facility]) eos # 0.1 10 0.0-0.5 Eos # [place] ([facility]) baso # 0.1 10 0.0-0.2 Baso # [place] ([facility]) ID Date Data Source [id number] 01/20/2021 04:08:00 PM EST [place] ([facility]) Name Value Range Interpretation Code Description Data Arlen rce(s) Supporting Document(s) CK-mb value mass 1.4 NG/mL <3.6 CK-mb Value Mass AT [facility]) mb/CK relative index < or =4 mb/CK Relative Index [facility]) CPK creatine phosphokinase 122 U/L 26-192 CPK Creat ine Phosphokinase [facility]) troponin I < 0.02 < 0.10 Troponin I [place] ([facility]) ID Date Data Source [id number] 01/20/2021 04:08:00 PM EST [place] ([facility]) Name Value Range Interpretation Code Description Data Arlen rce(s) Supporting Document(s) CPK creatine phosphokinase 122 U/L 26-192 CPK Creat ine Phosphokinase [place] ([facility]) mb/CK relative index < or =4 mb/CK Relative Index [place] ([facility]) CK-mb value mass 1.4 NG/mL <3.6 CK-mb Value Mass AT [place] ([facility]) troponin I < 0.02 < 0.10 Troponin I [place] ([facility]) ID Date Data Source [id number] 01/20/2021 04:08:00 PM EST [place] ([facility]) Name Value Range Interpretation Code Description Data Arlen rce(s) Supporting Document(s) CPK creatine phosphokinase 122 U/L 26-192 CPK Creat ine Phosphokinase [place] ([facility]) CK-mb value mass 1.4 NG/mL <3.6 CK-mb Value Mass AT [facility] ([facility]) mb/CK relative index < or =4 mb/CK Relative Index [place] ([facility]) troponin I < 0.02 < 0.10 Troponin I [place] ([facility]) ID Date Data Source [id number] 01/20/2021 04:08:00 PM EST [place] ([facility]) Name Value Range Interpretation Code Description Data Arlen rce(s) Supporting Document(s) CK-mb value mass 1.4 NG/mL <3.6 CK-mb Value Mass AT [facility] ([facility]) CPK creatine phosphokinase 122 U/L 26-192 CPK Creat ine Phosphokinase [place] ([facility]) mb/CK relative index < or =4 mb/CK Relative Index [place] ([facility]) troponin I < 0.02 < 0.10 Troponin I [place] ([facility]) ID Date Data Source [id number] 01/20/2021 04:08:00 PM EST [place] ([facility]) Name Value Range Interpretation Code Description Data Arlen rce(s) Supporting Document(s) mb/CK relative index < or =4 mb/CK Relative Index [place] ([facility]) CPK creatine phosphokinase 122 U/L 26-192 CPK Creat ine Phosphokinase [place] ([facility]) CK-mb value mass 1.4 NG/mL <3.6 CK-mb Value Mass AT [place] ([facility]) troponin I < 0.02 < 0.10 Troponin I [place] ([facility]) ID Date Data Source [id number] 01/20/2021 03:26:00 PM EST [place] ([facility]) Name Value Range Interpretation Code Description Data Arlen rce(s) Supporting Document(s) appearance, urine clear clear Appearance, Urine [place] ([facility]) color, urine yellow yellow Color, Urine [place] (No [facility]) pH,urine 5.0 units 5.0-9.0 pH,urine [place] ([facility]) protein, urine auto 1+ negative Above high normal Protein, Urine Auto [place] ([facility]) specific gravity urine auto 1.002-1.035 Specifi [place] Urine Auto [place] ([facility]) glucose, urine (UA) auto negative negative Glucose, Ur ine (UA) Auto [place] ([facility]) urobilinogen, urine auto 0.2 mg/dL 0.0-2.0 Urobilinoge n, Urine Auto [place] ([facility]) ketone, urine auto negative negative Ketone, Urine Aut o [place] ([facility]) bilirubin, urine auto negative negative Bilirubin, Uri ne Auto [place] ([facility]) leukocyte esterase, urine auto 1+ negative Above high normal Leukocyte Esterase, Urine Auto [place] ([facility]) nitrite, urine auto negative negative Nitrite, Urine A uto [place] ([facility]) blood, urine blood negative negative Blood, Urine Bloo d [place] ([facility]) RBC, urine auto 2 /hpf 0-3 RBC, Urine Auto AT[place] NA ([facility]) WBC, urine auto 0 /hpf 0-3 WBC, Urine Auto [place] NA ([facility]) bacteria, urine auto negative negative Bacteria, Urine Auto [place] ([facility]) squamous epithelial cell ur AU 2 /hpf 0-6 Squam ous Epithelial Cell Ur AU [place] ([facility]) hyaline cast, urine auto 0 /lpf 0-1 Hyaline Merrick t, Urine Auto [place] ([facility]) mucus, urine small negative Mucus, Urine [place] (No [facility]) ID Date Data Source [id number] 01/20/2021 03:26:00 PM EST [place] ([facility]) Name Value Range Interpretation Code Description Data Arlen rce(s) Supporting Document(s) color, urine yellow yellow Color, Urine [place] (No [facility]) appearance, urine clear clear Appearance, Urine [place] ([facility]) specific gravity urine auto 1.002-1.035 Specifi [place] Urine Auto [place] ([facility]) pH,urine 5.0 units 5.0-9.0 pH,urine [place] ([facility]) glucose, urine (UA) auto negative negative Glucose, Ur ine (UA) Auto [place] ([facility]) ketone, urine auto negative negative Ketone, Urine Aut o [place] ([facility]) protein, urine auto 1+ negative Above high normal Protein, Urine Auto [place] ([facility]) urobilinogen, urine auto 0.2 mg/dL 0.0-2.0 Urobilinoge n, Urine Auto [place] ([facility]) bilirubin, urine auto negative negative Bilirubin, Uri ne Auto [place] ([facility]) nitrite, urine auto negative negative Nitrite, Urine A uto [place] ([facility]) leukocyte esterase, urine auto 1+ negative Above high normal Leukocyte Esterase, Urine Auto [place] ([facility]) WBC, urine auto 0 /hpf 0-3 WBC, Urine Auto [place] NA ([facility]) blood, urine blood negative negative Blood, Urine Bloo d [place] ([facility]) squamous epithelial cell ur AU 2 /hpf 0-6 Squam ous Epithelial Cell Ur AU [place] ([facility]) bacteria, urine auto negative negative Bacteria, Urine Auto [place] ([facility]) RBC, urine auto 2 /hpf 0-3 RBC, Urine Auto [place] NA ([facility]) hyaline cast, urine auto 0 /lpf 0-1 Hyaline Merrick t, Urine Auto [place] ([facility]) mucus, urine small negative Mucus, Urine [place] (No [facility]) ID Date Data Source [id number] 01/20/2021 03:26:00 PM EST [place] ([facility]) Name Value Range Interpretation Code Description Data Arlen rce(s) Supporting Document(s) appearance, urine clear clear Appearance, Urine [place] ([facility]) pH,urine 5.0 units 5.0-9.0 pH,urine [place] ([facility]) color, urine yellow yellow Color, Urine [place] (No [facility]) specific gravity urine auto 1.002-1.035 Specifi [place] Urine Auto [place] ([facility]) protein, urine auto 1+ negative Above high normal Protein, Urine Auto [place] ([facility]) glucose, urine (UA) auto negative negative Glucose, Ur ine (UA) Auto [place] ([facility]) ketone, urine auto negative negative Ketone, Urine Aut o [place] ([facility]) bilirubin, urine auto negative negative Bilirubin, Uri ne Auto [place] ([facility]) urobilinogen, urine auto 0.2 mg/dL 0.0-2.0 Urobilinoge n, Urine Auto [place] ([facility]) nitrite, urine auto negative negative Nitrite, Urine A uto [place] ([facility]) leukocyte esterase, urine auto 1+ negative Above high normal Leukocyte Esterase, Urine Auto [place] ([facility]) blood, urine blood negative negative Blood, Urine Bloo d [place] ([facility]) bacteria, urine auto negative negative Bacteria, Urine Auto [place] ([facility]) RBC, urine auto 2 /hpf 0-3 RBC, Urine Auto [place] ([facility]) WBC, urine auto 0 /hpf 0-3 WBC, Urine Auto [place] ([facility]) hyaline cast, urine auto 0 /lpf 0-1 Hyaline Merrick t, Urine Auto [place] ([facility]) mucus, urine small negative Mucus, Urine [place] (No [facility]) squamous epithelial cell ur AU 2 /hpf 0-6 Squam ous Epithelial Cell Ur AU [place] ([facility]) ID Date Data Source [id number] 01/20/2021 03:26:00 PM EST [place] ([facility]) Name Value Range Interpretation Code Description Data Arlen rce(s) Supporting Document(s) appearance, urine clear clear Appearance, Urine [place] ([facility]) pH,urine 5.0 units 5.0-9.0 pH,urine [place] ([facility]) color, urine yellow yellow Color, Urine [place] (No [facility]) specific gravity urine auto 1.002-1.035 Specifi [place] Urine Auto [place] ([facility]) glucose, urine (UA) auto negative negative Glucose, Ur ine (UA) Auto [place] ([facility]) protein, urine auto 1+ negative Above high normal Protein, Urine Auto [place] ([facility]) urobilinogen, urine auto 0.2 mg/dL 0.0-2.0 Urobilinoge n, Urine Auto [place] ([facility]) ketone, urine auto negative negative Ketone, Urine Aut o [place] ([facility]) bilirubin, urine auto negative negative Bilirubin, Uri ne Auto [place] ([facility]) nitrite, urine auto negative negative Nitrite, Urine A uto [place] ([facility]) leukocyte esterase, urine auto 1+ negative Above high normal Leukocyte Esterase, Urine Auto [place] ([facility]) blood, urine blood negative negative Blood, Urine Bloo d [place] ([facility]) WBC, urine auto 0 /hpf 0-3 WBC, Urine Auto [place] ([facility]) RBC, urine auto 2 /hpf 0-3 RBC, Urine Auto [place] NA ([facility]) squamous epithelial cell ur AU 2 /hpf 0-6 Squam ous Epithelial Cell Ur AU [place] ([facility]) bacteria, urine auto negative negative Bacteria, Urine Auto [place] ([facility]) mucus, urine small negative Mucus, Urine [place] (No [facility]) hyaline cast, urine auto 0 /lpf 0-1 Hyaline Merrick t, Urine Auto [place] ([facility]) ID Date Data Source [id number] 01/20/2021 03:26:00 PM EST [place] ([facility]) Name Value Range Interpretation Code Description Data Arlen rce(s) Supporting Document(s) appearance, urine clear clear Appearance, Urine [place] ([facility]) color, urine yellow yellow Color, Urine [place] (No [facility]) pH,urine 5.0 units 5.0-9.0 pH,urine [place] ([facility]) specific gravity urine auto 1.002-1.035 Specifi [place] Urine Auto [place] ([facility]) protein, urine auto 1+ negative Above high normal Protein, Urine Auto [place] ([facility]) ketone, urine auto negative negative Ketone, Urine Aut o [place] ([facility]) glucose, urine (UA) auto negative negative Glucose, Ur ine (UA) Auto [place] ([facility]) bilirubin, urine auto negative negative Bilirubin, Uri ne Auto [place] ([facility]) leukocyte esterase, urine auto 1+ negative Above high normal Leukocyte Esterase, Urine Auto [place] ([facility]) urobilinogen, urine auto 0.2 mg/dL 0.0-2.0 Urobilinoge n, Urine Auto [place] ([facility]) nitrite, urine auto negative negative Nitrite, Urine A uto [place] ([facility]) RBC, urine auto 2 /hpf 0-3 RBC, Urine Auto [place] NA ([facility]) blood, urine blood negative negative Blood, Urine Bloo d [place] ([facility]) WBC, urine auto 0 /hpf 0-3 WBC, Urine Auto [place] ([facility]) bacteria, urine auto negative negative Bacteria, Urine Auto [place] ([facility]) squamous epithelial cell ur AU 2 /hpf 0-6 Squam ous Epithelial Cell Ur AU [place] ([facility]) mucus, urine small negative Mucus, Urine [place] (No [facility]) hyaline cast, urine auto 0 /lpf 0-1 Hyaline Merrick t, Urine Auto [place] ([facility]) ID Date Data Source [id number] 01/20/2021 01:30:00 PM EST [facility] Name Value Range Interpretation Code Description Data Arlen rce(s) Supporting Document(s) SARS-CoV-2 (COVID 19) NEGATIVE - SARS-CoV-2 (COVID19) [facility] This lab was ordered by [facility] a nd reported by [facility]. ID Date Data Source [id number] 12/25/2020 10:01:00 AM EST [place] ([facility]) Name Value Range Interpretation Code Description Data Arlen rce(s) Supporting Document(s) QRS Qrs [place] ([facility]) Rate & Rhythm Rate & Rhythm [place] ([facility]) QRS Duration QRS Duration [place] ([facility]) MS Interval MS Interval [place] ([facility]) QT Interval QT Interval [place] ([facility]) ID Date Data Source [id number] 12/25/2020 10:01:00 AM EST [place] ([facility]) Name Value Range Interpretation Code Description Data Arlen rce(s) Supporting Document(s) Rate & Rhythm Rate & Rhythm [place] ([facility]) QRS Qrs [place] ([facility]) MS Interval MS Interval [place] ([facility]) QRS Duration QRS Duration [place] ([facility]) QT Interval QT Interval [place] ([facility]) ID Date Data Source [id number] 12/25/2020 10:01:00 AM EST [place] ([facility]) Name Value Range Interpretation Code Description Data Arlen rce(s) Supporting Document(s) Rate & Rhythm Rate & Rhythm [place] ([facility]) QRS Qrs [place] ([facility]) QT Interval QT Interval [place] ([facility]) MS Interval MS Interval [place] ([facility]) QRS Duration QRS Duration [place] ([facility]) ID Date Data Source [id number] 12/25/2020 10:01:00 AM EST [place] ([facility]) Name Value Range Interpretation Code Description Data Arlen rce(s) Supporting Document(s) Rate & Rhythm Rate & Rhythm [place] ([facility]) QRS Qrs [place] ([facility]) MS Interval MS Interval [place] ([facility]) QT Interval QT Interval [place] ([facility]) QRS Duration QRS Duration [place] ([facility]) ID Date Data Source [id number] 12/25/2020 10:01:00 AM EST [place] ([facility]) Name Value Range Interpretation Code Description Data Arlen rce(s) Supporting Document(s) QRS Qrs [place] ([facility]) Rate & Rhythm Rate & Rhythm [place] ([facility]) MS Interval MS Interval [place] ([facility]) QT Interval QT Interval [place] ([facility]) QRS Duration QRS Duration [place] ([facility]) ID Date Data Source [id number] 12/25/2020 10:01:00 AM EST [place] ([facility]) Name Value Range Interpretation Code Description Data Arlen rce(s) Supporting Document(s) Rate & Rhythm Rate & Rhythm [place] ([facility]) QRS Qrs [place] ([facility]) QRS Duration QRS Duration [place] ([facility]) QT Interval QT Interval [place] ([facility]) MS Interval MS Interval [place] ([facility]) ID Date Data Source [id number] 12/25/2020 10:01:00 AM EST [place] ([facility]) Name Value Range Interpretation Code Description Data Arlen rce(s) Supporting Document(s) MS Interval MS Interval [place] ([facility]) QRS Qrs [place] ([facility]) Rate & Rhythm Rate & Rhythm [place] ([facility]) QRS Duration QRS Duration [place] ([facility]) QT Interval QT Interval [place] ([facility]) ID Date Data Source [id number] 12/22/2020 11:42:00 AM EST [place] ([facility]) Name Value Range Interpretation Code Description Data Arlen rce(s) Supporting Document(s) blood urea nitrogen 13 mg/dL 7-18 Blood Urea Nitro gen [place] ([facility]) glucose, fasting 91 mg/dL 70-100 Glucose, Fasting AT [facility] ([facility]) creatinine for GFR 0.91 mg/dL 0.55-1.30 Creatinine for GF R [place] ([facility]) glomerular filtration rate > 60.0 >60 Glomerula r Filtration Rate [place] ([facility]) chloride level 102 mEq/L 98-107 Chloride Level [place] ([facility]) sodium level 139 mEq/L 136-145 Sodium Level [place] ([facility]) potassium serum 3.9 mEq/L 3.5-5.1 Potassium Serum [place] NA ([facility]) ALT/SGPT 19 U/L 12-78 ALT/SGPT [place] ([facility]) anion gap 7 mEq/L 8-16 Below low normal Anion Gap [place] ( [facility]) calcium level 9.3 mg/dL 8.5-10.1 Calcium Level [place] ( [facility]) carbon dioxide level 30 mEq/L 21-32 Carbon Dioxide Level [place] ([facility]) AST/SGOT 10 U/L 7-37 AST/SGOT [place] ([facility]) total protein 7.6 gm/dL 6.4-8.2 Total Protein [place] ( [facility]) albumin 3.9 gm/dL 3.2-5.2 Albumin [place] ([facility]) albumin/globulin ratio 1.2-2.2 Below low normal Albumin /globulin Ratio [place] ([facility]) bilirubin,total 0.6 mg/dL 0.2-1.0 Bilirubin,total [place] ([facility]) alkaline phosphatase 73 U/L 45-117 Alkaline Phosph atase [place] ([facility]) ID Date Data Source [id number] 12/22/2020 11:42:00 AM EST [place] ([facility]) Name Value Range Interpretation Code Description Data Arlen rce(s) Supporting Document(s) white blood count 7.0 10 4.0-10.0 White Blood Count [place] ([facility]) red blood count 4.40 10 4.00-5.40 Red Blood Count [place] ([facility]) hemoglobin 13.2 g/dL 12.0-15.5 Hemoglobin [place] ([facility]) hematocrit 40.3 % 36.0-47.0 Hematocrit [place] ([facility]) mean corpuscular volume 91.6 fL 80.0-96.0 Mean Corpusc ular Volume [place] ([facility]) mean corpuscular HGB conc 32.8 g/dL 32.0-36.5 Mean Corpu scular HGB Conc [place] ([facility]) red cell distribution width 13.2 % 11.5-14.5 Red Cell Distribution Width [place] ([facility]) mean corpuscular hemoglobin 30.0 pg 27.0-33.0 Mean Cor puscular Hemoglobin [place] ([facility]) platelet count, automated 319 10 150-450 Platelet C ount, Automated [place] ([facility]) lymph % 43.2 % 24.0-44.0 Lymph % [place] ([facility]) neutrophils % 45.4 % 36.0-66.0 Neutrophils % [place] ( [facility]) mono % 9.3 % 0.0-5.0 Above high normal [place] % [place] ([facility]) nucleated red blood cell % 0.0 % 0-0 Nucleated Red Blood Cell % [place] ([facility]) immature granulocyte % 0.3 % 0-3.0 Immature Gran ulocyte % [place] ([facility]) eos % 1.4 % 0.0-3.0 Eos % [place] ([facility]) baso % 0.4 % 0.0-1.0 Baso % [place] [facility] [facility]) mono # 0.7 10 0.0-0.8 [place] # [place] ([facility]) lymph # 3.0 10 1.5-5.0 Lymph # [place] ([facility]) eos # 0.1 10 0.0-0.5 Eos # [place] ([facility]) neutrophils # 3.2 10 1.5-8.5 Neutrophils # [place] ( [facility]) baso # 0.0 10 0.0-0.2 Baso # [place] ([facility]) ID Date Data Source [id number] 12/22/2020 11:42:00 AM EST [place] ([facility]) Name Value Range Interpretation Code Description Data Arlen rce(s) Supporting Document(s) HCG, serum qualitative negative negative HCG, Serum Qu alitative [place] ([facility]) ID Date Data Source [id number] 12/22/2020 11:42:00 AM EST [place] ([facility]) Name Value Range Interpretation Code Description Data Arlen rce(s) Supporting Document(s) total 25(oh) vitamin D 30.2 NG/mL 30.0-100.0 Total 25(Oh) Vitamin D [place] ([facility]) ID Date Data Source [id number] 12/22/2020 11:42:00 AM EST [place] ([facility]) Name Value Range Interpretation Code Description Data Arlen rce(s) Supporting Document(s) thyroid stimulating hormone 1.180 uIU/mL 0.358-3.740 Thyroid Stimulating Hormone [place] ([facility]) free T4 0.73 NG/dL 0.76-1.46 Below low normal Free T4 [place] ( [facility]) ID Date Data Source [id number] 12/22/2020 11:42:00 AM EST [place] ([facility]) Name Value Range Interpretation Code Description Data Arlen rce(s) Supporting Document(s) iron (fe) 84 ug/dL 50-170 Iron (Fe) [place] ([facility]) total iron binding capacity 419 ug/dL 250-450 Total Ir on Binding Capacity [place] ([facility]) percent saturation 20.0 % 13.2-45.0 Percent Saturatio n [place] ([facility]) ID Date Data Source [id number] 12/22/2020 11:42:00 AM EST [place] ([facility]) Name Value Range Interpretation Code Description Data Arlen rce(s) Supporting Document(s) glucose, fasting 91 mg/dL 70-100 Glucose, Fasting AT [facility]) blood urea nitrogen 13 mg/dL 7-18 Blood Urea Nitro gen [place] ([facility]) creatinine for GFR 0.91 mg/dL 0.55-1.30 Creatinine for GF R [place] ([facility]) glomerular filtration rate > 60.0 >60 [place] r Filtration Rate [place] ([facility]) chloride level 102 mEq/L 98-107 Chloride Level [place] ([facility]) sodium level 139 mEq/L 136-145 Sodium Level [place] ([facility]) potassium serum 3.9 mEq/L 3.5-5.1 Potassium Serum [place] ([facility]) AST/SGOT 10 U/L 7-37 AST/SGOT [place] ([facility]) carbon dioxide level 30 mEq/L 21-32 Carbon Dioxide Level [place] ([facility]) anion gap 7 mEq/L 8-16 Below low normal Anion Gap [place] ( [facility]) calcium level 9.3 mg/dL 8.5-10.1 Calcium Level [place] ( [facility]) ALT/SGPT 19 U/L 12-78 ALT/SGPT [place] ([facility]) bilirubin,total 0.6 mg/dL 0.2-1.0 Bilirubin,total ATHE [facility]) albumin 3.9 gm/dL 3.2-5.2 Albumin [place] ([facility]) total protein 7.6 gm/dL 6.4-8.2 Total Protein [place] ( [facility]) alkaline phosphatase 73 U/L 45-117 Alkaline Phosph atase [place] ([facility]) albumin/globulin ratio 1.2-2.2 Below low normal Albumin /globulin Ratio [place] ([facility]) ID Date Data Source [id number] 12/22/2020 11:42:00 AM EST [place] ([facility]) Name Value Range Interpretation Code Description Data Arlen rce(s) Supporting Document(s) white blood count 7.0 10 4.0-10.0 White Blood Count [place] ([facility]) red blood count 4.40 10 4.00-5.40 Red Blood Count [place] NA ([facility]) hemoglobin 13.2 g/dL 12.0-15.5 Hemoglobin [place] ([facility]) mean corpuscular volume 91.6 fL 80.0-96.0 Mean Corpusc ular Volume [place] ([facility]) mean corpuscular hemoglobin 30.0 pg 27.0-33.0 Mean Cor puscular Hemoglobin [place] ([facility]) hematocrit 40.3 % 36.0-47.0 Hematocrit [place] ([facility]) red cell distribution width 13.2 % 11.5-14.5 Red Cell Distribution Width [place] ([facility]) mean corpuscular HGB conc 32.8 g/dL 32.0-36.5 Mean Corpu scular HGB Conc [place] ([facility]) lymph % 43.2 % 24.0-44.0 Lymph % [place] ([facility]) neutrophils % 45.4 % 36.0-66.0 Neutrophils % [place] ( [facility]) mono % 9.3 % 0.0-5.0 Above high normal [place] % [place] ([facility]) platelet count, automated 319 10 150-450 Platelet C ount, Automated [place] ([facility]) eos % 1.4 % 0.0-3.0 Eos % [place] ([facility]) baso % 0.4 % 0.0-1.0 Baso % [place] ([facility]) immature granulocyte % 0.3 % 0-3.0 Immature Gran ulocyte % [place] ([facility]) lymph # 3.0 10 1.5-5.0 Lymph # [place] ([facility]) nucleated red blood cell % 0.0 % 0-0 Nucleated Red Blood Cell % [place] ([facility]) neutrophils # 3.2 10 1.5-8.5 Neutrophils # [place] ( [facility]) mono # 0.7 10 0.0-0.8 [place] # [place] ([facility]) eos # 0.1 10 0.0-0.5 Eos # [place] ([facility]) baso # 0.0 10 0.0-0.2 Baso # [place] ([facility]) ID Date Data Source [id number] 12/22/2020 11:42:00 AM EST [place] ([facility]) Name Value Range Interpretation Code Description Data Arlen rce(s) Supporting Document(s) HCG, serum qualitative negative negative HCG, Serum Qu alitative [place] ([facility]) ID Date Data Source [id number] 12/22/2020 11:42:00 AM EST [facility]) Name Value Range Interpretation Code Description Data Arlen rce(s) Supporting Document(s) total 25(oh) vitamin D 30.2 NG/mL 30.0-100.0 Total 25(Oh) Vitamin D [place] ([facility]) ID Date Data Source [id number] 12/22/2020 11:42:00 AM EST [place] ([facility]) Name Value Range Interpretation Code Description Data Arlen rce(s) Supporting Document(s) free T4 0.73 NG/dL 0.76-1.46 Below low normal Free T4 [place] ( [facility]) thyroid stimulating hormone 1.180 uIU/mL 0.358-3.740 Thyroid Stimulating Hormone [place] ([facility]) ID Date Data Source [id number] 12/22/2020 11:42:00 AM EST [place] ([facility]) Name Value Range Interpretation Code Description Data Arlen rce(s) Supporting Document(s) iron (fe) 84 ug/dL 50-170 Iron (Fe) [place] ([facility]) percent saturation 20.0 % 13.2-45.0 Percent Saturatio n [place] ([facility]) total iron binding capacity 419 ug/dL 250-450 Total Ir on Binding Capacity [place] ([facility]) ID Date Data Source [id number] 12/22/2020 11:42:00 AM EST [place] ([facility]) Name Value Range Interpretation Code Description Data Arlen rce(s) Supporting Document(s) blood urea nitrogen 13 mg/dL 7-18 Blood Urea Nitro gen [place] ([facility]) glucose, fasting 91 mg/dL 70-100 Glucose, Fasting AT [facility]) sodium level 139 mEq/L 136-145 Sodium Level [place] ([facility]) creatinine for GFR 0.91 mg/dL 0.55-1.30 Creatinine for GF R [place] ([facility]) potassium serum 3.9 mEq/L 3.5-5.1 Potassium Serum [place] ([facility]) glomerular filtration rate > 60.0 >60 Glomer[place] r Filtration Rate [place] ([facility]) carbon dioxide level 30 mEq/L 21-32 Carbon Dioxide Level [place] ([facility]) chloride level 102 mEq/L 98-107 Chloride Level [place] ([facility]) anion gap 7 mEq/L 8-16 Below low normal Anion Gap [place] ( [facility]) calcium level 9.3 mg/dL 8.5-10.1 Calcium Level [place] ( [facility]) alkaline phosphatase 73 U/L 45-117 Alkaline Phosph atase [place] ([facility]) AST/SGOT 10 U/L 7-37 AST/SGOT [place] ([facility]) ALT/SGPT 19 U/L 12-78 ALT/SGPT [place] ([facility]) bilirubin,total 0.6 mg/dL 0.2-1.0 Bilirubin,total [place] ([facility]) albumin 3.9 gm/dL 3.2-5.2 Albumin [place] ([facility]) albumin/globulin ratio 1.2-2.2 Below low normal Albumin /globulin Ratio [place] ([facility]) total protein 7.6 gm/dL 6.4-8.2 Total Protein [place] ( [facility]) ID Date Data Source [id number] 12/22/2020 11:42:00 AM EST [place] ([facility]) Name Value Range Interpretation Code Description Data Arlen rce(s) Supporting Document(s) white blood count 7.0 10 4.0-10.0 White Blood Count [place] ([facility]) red blood count 4.40 10 4.00-5.40 Red Blood Count [place] ([facility]) hematocrit 40.3 % 36.0-47.0 Hematocrit [place] ([facility]) hemoglobin 13.2 g/dL 12.0-15.5 Hemoglobin [place] ([facility]) mean corpuscular volume 91.6 fL 80.0-96.0 Mean Corpusc ular Volume [place] ([facility]) mean corpuscular hemoglobin 30.0 pg 27.0-33.0 Mean Cor puscular Hemoglobin [place] ([facility]) mean corpuscular HGB conc 32.8 g/dL 32.0-36.5 Mean Corpu scular HGB Conc [place] ([facility]) red cell distribution width 13.2 % 11.5-14.5 Red Cell Distribution Width [place] ([facility]) platelet count, automated 319 10 150-450 Platelet C ount, Automated [place] ([facility]) neutrophils % 45.4 % 36.0-66.0 Neutrophils % [place] ( [facility]) lymph % 43.2 % 24.0-44.0 Lymph % [place] ([facility]) mono % 9.3 % 0.0-5.0 Above high normal [place] % [place] ([facility]) eos % 1.4 % 0.0-3.0 Eos % [place] ([facility]) immature granulocyte % 0.3 % 0-3.0 Immature Gran ulocyte % [place] ([facility]) nucleated red blood cell % 0.0 % 0-0 Nucleated Red Blood Cell % [place] ([facility]) baso % 0.4 % 0.0-1.0 Baso % [place] ([facility]) neutrophils # 3.2 10 1.5-8.5 Neutrophils # [place] ( [facility]) mono # 0.7 10 0.0-0.8 [place] # [place] ([facility]) eos # 0.1 10 0.0-0.5 Eos # [place] ([facility]) lymph # 3.0 10 1.5-5.0 Lymph # [place] ([facility]) baso # 0.0 10 0.0-0.2 Baso # [place] ([facility]) ID Date Data Source [id number] 12/22/2020 11:42:00 AM EST [place] ([facility]) Name Value Range Interpretation Code Description Data Arlen rce(s) Supporting Document(s) HCG, serum qualitative negative negative HCG, Serum Qu alitative [place] ([facility]) ID Date Data Source [id number] 12/22/2020 11:42:00 AM EST [place] ([facility]) Name Value Range Interpretation Code Description Data Arlen rce(s) Supporting Document(s) total 25(oh) vitamin D 30.2 NG/mL 30.0-100.0 Total 25(Oh) Vitamin D [place] ([facility]) ID Date Data Source [id number] 12/22/2020 11:42:00 AM EST [place] ([facility]) Name Value Range Interpretation Code Description Data Arlen rce(s) Supporting Document(s) free T4 0.73 NG/dL 0.76-1.46 Below low normal Free T4 [place] ( [facility]) thyroid stimulating hormone 1.180 uIU/mL 0.358-3.740 Thyroid Stimulating Hormone [place] ([facility]) ID Date Data Source [id number] 12/22/2020 11:42:00 AM EST [place] ([facility]) Name Value Range Interpretation Code Description Data Arlen rce(s) Supporting Document(s) iron (fe) 84 ug/dL 50-170 Iron (Fe) [place] ([facility]) total iron binding capacity 419 ug/dL 250-450 Total Ir on Binding Capacity [place] ([facility]) percent saturation 20.0 % 13.2-45.0 Percent Saturatio n [place] ([facility]) ID Date Data Source [id number] 12/22/2020 11:42:00 AM EST [place] ([facility]) Name Value Range Interpretation Code Description Data Arlen rce(s) Supporting Document(s) blood urea nitrogen 13 mg/dL 7-18 Blood Urea Nitro gen [place] ([facility]) glucose, fasting 91 mg/dL 70-100 Glucose, Fasting AT [place] ([facility]) glomerular filtration rate > 60.0 >60 [place] r Filtration Rate [place] ([facility]) creatinine for GFR 0.91 mg/dL 0.55-1.30 Creatinine for GF R [place] ([facility]) sodium level 139 mEq/L 136-145 Sodium Level [place] (No [facility]) potassium serum 3.9 mEq/L 3.5-5.1 Potassium Serum [place] ([facility]) chloride level 102 mEq/L 98-107 Chloride Level [place] ([facility]) anion gap 7 mEq/L 8-16 Below low normal Anion Gap [place] ( [facility]) calcium level 9.3 mg/dL 8.5-10.1 Calcium Level [place] ( [facility]) carbon dioxide level 30 mEq/L 21-32 Carbon Dioxide Level [place] ([facility]) AST/SGOT 10 U/L 7-37 AST/SGOT [place] ([facility]) ALT/SGPT 19 U/L 12-78 ALT/SGPT [place] ([facility]) alkaline phosphatase 73 U/L 45-117 Alkaline Phosph atase [place] ([facility]) bilirubin,total 0.6 mg/dL 0.2-1.0 Bilirubin,total [place] ([facility]) albumin/globulin ratio 1.2-2.2 Below low normal Albumin /globulin Ratio [place] ([facility]) albumin 3.9 gm/dL 3.2-5.2 Albumin [place] ([facility]) total protein 7.6 gm/dL 6.4-8.2 Total Protein [place] ( [facility]) ID Date Data Source [id number] 12/22/2020 11:42:00 AM EST [place] ([facility]) Name Value Range Interpretation Code Description Data Arlen rce(s) Supporting Document(s) white blood count 7.0 10 4.0-10.0 White Blood Count [place] ([facility]) hemoglobin 13.2 g/dL 12.0-15.5 Hemoglobin [place] ([facility]) red blood count 4.40 10 4.00-5.40 Red Blood Count [place] ([facility]) mean corpuscular volume 91.6 fL 80.0-96.0 Mean Corpusc ular Volume [place] ([facility]) hematocrit 40.3 % 36.0-47.0 Hematocrit [place] ([facility]) mean corpuscular HGB conc 32.8 g/dL 32.0-36.5 Mean Corpu scular HGB Conc [place] ([facility]) mean corpuscular hemoglobin 30.0 pg 27.0-33.0 Mean Cor puscular Hemoglobin [place] ([facility]) red cell distribution width 13.2 % 11.5-14.5 Red Cell Distribution Width [place] ([facility]) neutrophils % 45.4 % 36.0-66.0 Neutrophils % [place] ( [facility]) lymph % 43.2 % 24.0-44.0 Lymph % [place] ([facility]) platelet count, automated 319 10 150-450 Platelet C ount, Automated [place] ([facility]) baso % 0.4 % 0.0-1.0 Baso % [place] ([facility]) mono % 9.3 % 0.0-5.0 Above high normal [place] % [place] ([facility]) eos % 1.4 % 0.0-3.0 Eos % [place] ([facility]) neutrophils # 3.2 10 1.5-8.5 Neutrophils # [place] ( [facility]) immature granulocyte % 0.3 % 0-3.0 Immature Gran ulocyte % [place] ([facility]) nucleated red blood cell % 0.0 % 0-0 Nucleated Red Blood Cell % [place] ([facility]) baso # 0.0 10 0.0-0.2 Baso # [place] ([facility]) mono # 0.7 10 0.0-0.8 [place] # [place] ([facility]) eos # 0.1 10 0.0-0.5 Eos # [place] ([facility]) lymph # 3.0 10 1.5-5.0 Lymph # [place] ([facility]) ID Date Data Source [id number] 12/22/2020 11:42:00 AM EST [place] ([facility]) Name Value Range Interpretation Code Description Data Arlen rce(s) Supporting Document(s) HCG, serum qualitative negative negative HCG, Serum Qu alitative [place] ([facility]) ID Date Data Source [id number] 12/22/2020 11:42:00 AM EST [place] ([facility]) Name Value Range Interpretation Code Description Data Arlen rce(s) Supporting Document(s) total 25(oh) vitamin D 30.2 NG/mL 30.0-100.0 Total 25(Oh) Vitamin D [place] ([facility]) ID Date Data Source [id number] 12/22/2020 11:42:00 AM EST [place] ([facility]) Name Value Range Interpretation Code Description Data Arlen rce(s) Supporting Document(s) free T4 0.73 NG/dL 0.76-1.46 Below low normal Free T4 [place] ( [facility]) thyroid stimulating hormone 1.180 uIU/mL 0.358-3.740 Thyroid Stimulating Hormone [place] ([facility]) ID Date Data Source [id number] 12/22/2020 11:42:00 AM EST [place] ([facility]) Name Value Range Interpretation Code Description Data Arlen rce(s) Supporting Document(s) percent saturation 20.0 % 13.2-45.0 Percent Satur[place] n [place] ([facility]) iron (fe) 84 ug/dL 50-170 Iron (Fe) [place] ([facility]) total iron binding capacity 419 ug/dL 250-450 Total Ir on Binding Capacity [place] ([facility]) ID Date Data Source [id number] 12/22/2020 11:42:00 AM EST [place] ([facility]) Name Value Range Interpretation Code Description Data Arlen rce(s) Supporting Document(s) blood urea nitrogen 13 mg/dL 7-18 Blood Urea Nitro gen [place] ([facility]) glomerular filtration rate > 60.0 >60 Gl[place] r Filtration Rate [place] ([facility]) creatinine for GFR 0.91 mg/dL 0.55-1.30 Creatinine for GF R [place] ([facility]) glucose, fasting 91 mg/dL 70-100 Glucose, Fasting AT [facility] ([facility]) sodium level 139 mEq/L 136-145 Sodium Level [place] (No [facility]) chloride level 102 mEq/L 98-107 Chloride Level [place] ([facility]) carbon dioxide level 30 mEq/L 21-32 Carbon Dioxide Level [place] ([facility]) potassium serum 3.9 mEq/L 3.5-5.1 Potassium Serum [place] ([facility]) alkaline phosphatase 73 U/L 45-117 Alkaline Phosph atase [place] ([facility]) anion gap 7 mEq/L 8-16 Below low normal Anion Gap [place] ( [facility]) ALT/SGPT 19 U/L 12-78 ALT/SGPT [place] ([facility]) calcium level 9.3 mg/dL 8.5-10.1 Calcium Level [place] ( [facility]) AST/SGOT 10 U/L 7-37 AST/SGOT [place] ([facility]) albumin 3.9 gm/dL 3.2-5.2 Albumin [place] ([facility]) albumin/globulin ratio 1.2-2.2 Below low normal Albumin /globulin Ratio [place] ([facility]) bilirubin,total 0.6 mg/dL 0.2-1.0 Bilirubin,total [place] NA ([facility]) total protein 7.6 gm/dL 6.4-8.2 Total Protein [place] ( [facility]) ID Date Data Source [id number] 12/22/2020 11:42:00 AM EST [place] ([facility]) Name Value Range Interpretation Code Description Data Arlen rce(s) Supporting Document(s) white blood count 7.0 10 4.0-10.0 White Blood Count [place] ([facility]) red blood count 4.40 10 4.00-5.40 Red Blood Count [place] ([facility]) hemoglobin 13.2 g/dL 12.0-15.5 Hemoglobin [place] ([facility]) hematocrit 40.3 % 36.0-47.0 Hematocrit [place] ([facility]) mean corpuscular HGB conc 32.8 g/dL 32.0-36.5 Mean Corpu scular HGB Conc [place] ([facility]) red cell distribution width 13.2 % 11.5-14.5 Red Cell Distribution Width [place] ([facility]) mean corpuscular hemoglobin 30.0 pg 27.0-33.0 Mean Cor puscular Hemoglobin [place] ([facility]) mean corpuscular volume 91.6 fL 80.0-96.0 Mean Corpusc ular Volume [place] ([facility]) mono % 9.3 % 0.0-5.0 Above high normal [place] % [place] ([facility]) platelet count, automated 319 10 150-450 Platelet C ount, Automated [place] ([facility]) lymph % 43.2 % 24.0-44.0 Lymph % [place] ([facility]) neutrophils % 45.4 % 36.0-66.0 Neutrophils % [place] ( [facility]) nucleated red blood cell % 0.0 % 0-0 Nucleated Red Blood Cell % [place] ([facility]) eos % 1.4 % 0.0-3.0 Eos % [place] ([facility]) immature granulocyte % 0.3 % 0-3.0 Immature Gran ulocyte % [place] ([facility]) baso % 0.4 % 0.0-1.0 Baso % [place] ([facility]) lymph # 3.0 10 1.5-5.0 Lymph # [place] ([facility]) mono # 0.7 10 0.0-0.8 [place] # [place] ([facility]) eos # 0.1 10 0.0-0.5 Eos # [place] ([facility]) neutrophils # 3.2 10 1.5-8.5 Neutrophils # [place] ( [facility]) baso # 0.0 10 0.0-0.2 Baso # [place] ([facility]) ID Date Data Source [id number] 12/22/2020 11:42:00 AM EST [place] ([facility]) Name Value Range Interpretation Code Description Data Arlen rce(s) Supporting Document(s) HCG, serum qualitative negative negative HCG, Serum Qu alitative [place] ([facility]) ID Date Data Source [id number] 12/22/2020 11:42:00 AM EST [place] ([facility]) Name Value Range Interpretation Code Description Data Arlen rce(s) Supporting Document(s) total 25(oh) vitamin D 30.2 NG/mL 30.0-100.0 Total 25(Oh) Vitamin D [place] ([facility]) ID Date Data Source [id number] 12/22/2020 11:42:00 AM EST [place] ([facility]) Name Value Range Interpretation Code Description Data Arlen rce(s) Supporting Document(s) thyroid stimulating hormone 1.180 uIU/mL 0.358-3.740 Thyroid Stimulating Hormone [place] ([facility]) free T4 0.73 NG/dL 0.76-1.46 Below low normal Free T4 [place] ( [facility]) ID Date Data Source [id number] 12/22/2020 11:42:00 AM EST [place] ([facility]) Name Value Range Interpretation Code Description Data Arlen rce(s) Supporting Document(s) total iron binding capacity 419 ug/dL 250-450 Total Ir on Binding Capacity [place] ([facility]) percent saturation 20.0 % 13.2-45.0 Percent Saturatio n [place] ([facility]) iron (fe) 84 ug/dL 50-170 Iron (Fe) [place] ([facility]) ID Date Data Source [id number] 12/22/2020 11:42:00 AM EST [place] ([facility]) Name Value Range Interpretation Code Description Data Arlen rce(s) Supporting Document(s) blood urea nitrogen 13 mg/dL 7-18 Blood Urea Nitro gen [place] ([facility]) glucose, fasting 91 mg/dL 70-100 Glucose, Fasting AT [place] ([facility]) glomerular filtration rate > 60.0 >60 Glomerula r Filtration Rate [place] ([facility]) sodium level 139 mEq/L 136-145 Sodium Level [place] (No [facility]) potassium serum 3.9 mEq/L 3.5-5.1 Potassium Serum ATHE NA ([facility]) creatinine for GFR 0.91 mg/dL 0.55-1.30 Creatinine for GF R [place] ([facility]) chloride level 102 mEq/L 98-107 Chloride Level [place] ([facility]) anion gap 7 mEq/L 8-16 Below low normal Anion Gap [place] ( [facility]) carbon dioxide level 30 mEq/L 21-32 Carbon Dioxide Level [place] ([facility]) alkaline phosphatase 73 U/L 45-117 Alkaline Phosph atase [place] ([facility]) AST/SGOT 10 U/L 7-37 AST/SGOT [place] ([facility]) ALT/SGPT 19 U/L 12-78 ALT/SGPT [place] ([facility]) calcium level 9.3 mg/dL 8.5-10.1 Calcium Level [place] ( [facility]) bilirubin,total 0.6 mg/dL 0.2-1.0 Bilirubin,total ATHE NA ([facility]) albumin/globulin ratio 1.2-2.2 Below low normal Albumin /globulin Ratio [place] ([facility]) albumin 3.9 gm/dL 3.2-5.2 Albumin [place] ([facility]) total protein 7.6 gm/dL 6.4-8.2 Total Protein [place] ( [facility]) ID Date Data Source [id number] 12/22/2020 11:42:00 AM EST [place] ([facility]) Name Value Range Interpretation Code Description Data Arlen rce(s) Supporting Document(s) white blood count 7.0 10 4.0-10.0 White Blood Count [place] ([facility]) hemoglobin 13.2 g/dL 12.0-15.5 Hemoglobin [place] ([facility]) red blood count 4.40 10 4.00-5.40 Red Blood Count ATHE NA ([facility]) hematocrit 40.3 % 36.0-47.0 Hematocrit [place] ([facility]) mean corpuscular HGB conc 32.8 g/dL 32.0-36.5 Mean Corpu scular HGB Conc [place] ([facility]) mean corpuscular volume 91.6 fL 80.0-96.0 Mean Corpusc ular Volume [place] ([facility]) mean corpuscular hemoglobin 30.0 pg 27.0-33.0 Mean Cor puscular Hemoglobin [place] ([facility]) red cell distribution width 13.2 % 11.5-14.5 Red Cell Distribution Width [place] ([facility]) mono % 9.3 % 0.0-5.0 Above high normal [place] % [place] ([facility]) neutrophils % 45.4 % 36.0-66.0 Neutrophils % [place] ( [facility]) platelet count, automated 319 10 150-450 Platelet C ount, Automated [place] ([facility]) lymph % 43.2 % 24.0-44.0 Lymph % [place] ([facility]) immature granulocyte % 0.3 % 0-3.0 Immature Gran ulocyte % [place] ([facility]) baso % 0.4 % 0.0-1.0 Baso % [place] ([facility]) eos % 1.4 % 0.0-3.0 Eos % [place] ([facility]) nucleated red blood cell % 0.0 % 0-0 Nucleated Red Blood Cell % [place] ([facility]) eos # 0.1 10 0.0-0.5 Eos # [place] ([facility]) neutrophils # 3.2 10 1.5-8.5 Neutrophils # [place] ( [facility]) lymph # 3.0 10 1.5-5.0 Lymph # [place] ([facility]) mono # 0.7 10 0.0-0.8 [place] # [place] ([facility]) baso # 0.0 10 0.0-0.2 Baso # [place] ([facility]) ID Date Data Source [id number] 12/22/2020 11:42:00 AM EST [place] ([facility]) Name Value Range Interpretation Code Description Data Arlen rce(s) Supporting Document(s) HCG, serum qualitative negative negative HCG, Serum Qu alitative [place] ([facility]) ID Date Data Source [id number] 12/22/2020 11:42:00 AM EST [place] ([facility]) Name Value Range Interpretation Code Description Data Arlen rce(s) Supporting Document(s) total 25(oh) vitamin D 30.2 NG/mL 30.0-100.0 Total 25(Oh) Vitamin D [place] ([facility]) ID Date Data Source [id number] 12/22/2020 11:42:00 AM EST [place] ([facility]) Name Value Range Interpretation Code Description Data Arlen rce(s) Supporting Document(s) thyroid stimulating hormone 1.180 uIU/mL 0.358-3.740 Thyroid Stimulating Hormone [place] ([facility]) free T4 0.73 NG/dL 0.76-1.46 Below low normal Free T4 [place] ( [facility]) ID Date Data Source [id number] 12/22/2020 11:42:00 AM EST [place] ([facility]) Name Value Range Interpretation Code Description Data Arlen rce(s) Supporting Document(s) total iron binding capacity 419 ug/dL 250-450 Total Ir on Binding Capacity [place] ([facility]) iron (fe) 84 ug/dL 50-170 Iron (Fe) [place] ([facility]) percent saturation 20.0 % 13.2-45.0 Percent Saturatio n [place] ([facility]) ID Date Data Source [id number] 12/22/2020 11:42:00 AM EST [place] ([facility]) Name Value Range Interpretation Code Description Data Arlen rce(s) Supporting Document(s) HCG, serum qualitative negative negative HCG, Serum Qu alitative [place] ([facility]) ID Date Data Source [id number] 12/22/2020 11:42:00 AM EST [place] ([facility]) Name Value Range Interpretation Code Description Data Arlen rce(s) Supporting Document(s) total 25(oh) vitamin D 30.2 NG/mL 30.0-100.0 Total 25(Oh) Vitamin D [place] ([facility]) ID Date Data Source [id number] 12/22/2020 11:42:00 AM EST [place] ([facility]) Name Value Range Interpretation Code Description Data Arlne rce(s) Supporting Document(s) thyroid stimulating hormone 1.180 uIU/mL 0.358-3.740 Thyroid Stimulating Hormone [place] ([facility]) free T4 0.73 NG/dL 0.76-1.46 Below low normal Free T4 [place] ( [facility]) ID Date Data Source [id number] 12/22/2020 11:42:00 AM EST [place] ([facility]) Name Value Range Interpretation Code Description Data Arlen rce(s) Supporting Document(s) total iron binding capacity 419 ug/dL 250-450 Total Ir on Binding Capacity [place] ([facility]) iron (fe) 84 ug/dL 50-170 Iron (Fe) [place] ([facility]) percent saturation 20.0 % 13.2-45.0 Percent Saturatio n [place] ([facility]) ID Date Data Source [id number] 12/22/2020 11:42:00 AM EST [place] ([facility]) Name Value Range Interpretation Code Description Data Arlen rce(s) Supporting Document(s) glucose, fasting 91 mg/dL 70-100 Glucose, Fasting AT [facility] ([facility]) blood urea nitrogen 13 mg/dL 7-18 Blood Urea Nitro gen [place] ([facility]) glomerular filtration rate > 60.0 >60 Glomerula r Filtration Rate [place] ([facility]) sodium level 139 mEq/L 136-145 Sodium Level [place] ([facility]) potassium serum 3.9 mEq/L 3.5-5.1 Potassium Serum ATHE NA ([facility]) creatinine for GFR 0.91 mg/dL 0.55-1.30 Creatinine for GF R [place] ([facility]) chloride level 102 mEq/L 98-107 Chloride Level [place] ([facility]) carbon dioxide level 30 mEq/L 21-32 Carbon Dioxide Level [place] ([facility]) anion gap 7 mEq/L 8-16 Below low normal Anion Gap [place] ( [facility]) calcium level 9.3 mg/dL 8.5-10.1 Calcium Level [place] ( [facility]) AST/SGOT 10 U/L 7-37 AST/SGOT [place] ([facility]) bilirubin,total 0.6 mg/dL 0.2-1.0 Bilirubin,total ATHE NA ([facility]) alkaline phosphatase 73 U/L 45-117 Alkaline Phosph atase [place] ([facility]) ALT/SGPT 19 U/L 12-78 ALT/SGPT [place] ([facility]) albumin/globulin ratio 1.2-2.2 Below low normal Albumin /globulin Ratio [place] ([facility]) total protein 7.6 gm/dL 6.4-8.2 Total Protein [place] ( [facility]) albumin 3.9 gm/dL 3.2-5.2 Albumin [place] ([facility]) ID Date Data Source [id number] 12/22/2020 11:42:00 AM EST [place] ([facility]) Name Value Range Interpretation Code Description Data Arlen rce(s) Supporting Document(s) white blood count 7.0 10 4.0-10.0 White Blood Count [place] ([facility]) mean corpuscular volume 91.6 fL 80.0-96.0 Mean Corpusc ular Volume [place] ([facility]) red blood count 4.40 10 4.00-5.40 Red Blood Count ATHE NA ([facility]) hemoglobin 13.2 g/dL 12.0-15.5 Hemoglobin [place] ([facility]) hematocrit 40.3 % 36.0-47.0 Hematocrit [place] ([facility]) mean corpuscular hemoglobin 30.0 pg 27.0-33.0 Mean Cor puscular Hemoglobin [place] ([facility]) red cell distribution width 13.2 % 11.5-14.5 Red Cell Distribution Width [place] ([facility]) mean corpuscular HGB conc 32.8 g/dL 32.0-36.5 Mean Corpu scular HGB Conc [place] ([facility]) platelet count, automated 319 10 150-450 Platelet C ount, Automated [place] ([facility]) mono % 9.3 % 0.0-5.0 Above high normal [place] % [place] ([facility]) lymph % 43.2 % 24.0-44.0 Lymph % [place] ([facility]) neutrophils % 45.4 % 36.0-66.0 Neutrophils % [place] ( [facility]) baso % 0.4 % 0.0-1.0 Baso % [place] ([facility]) nucleated red blood cell % 0.0 % 0-0 Nucleated Red Blood Cell % [place] ([facility]) eos % 1.4 % 0.0-3.0 Eos % [place] ([facility]) immature granulocyte % 0.3 % 0-3.0 Immature Gran ulocyte % [place] ([facility]) lymph # 3.0 10 1.5-5.0 Lymph # [place] ([facility]) eos # 0.1 10 0.0-0.5 Eos # [place] ([facility]) mono # 0.7 10 0.0-0.8 [place] # [place] ([facility]) neutrophils # 3.2 10 1.5-8.5 Neutrophils # [place] ( [facility]) baso # 0.0 10 0.0-0.2 Baso # [place] ([facility]) Procedure Social History No Information Vital Signs ID Date Data Source [id number] Name Value Range Interpretation Code Description Data Source(s) Systolic blood pressure 111 mm[Hg] 111 mm[Hg] M EDENT ([facility], [facility]) Diastolic blood pressure 74 mm[Hg] 74 mm[Hg] MED[facility] ([facility], [facility]) Heart rate 99 /min 99 /min MEDENT ([facility] [place], [facility]) Respiratory rate 16 /min 16 /min [facility] ( [facility], [facility]) Oxygen saturation in Arterial blood by Pulse oximetry 96 % 96 % [facility], [facility]) Body temperature 98.3 [degF] 98.3 [degF] MEDENT ([facility], [facility]) Body weight 138.00 [lb_av] 138.00 [lb_av] MEDEN T ([facility], [facility]) Body height 68 [in_i] 68 [in_i] MEDENT ([facility]) 5'8" Body mass index (BMI) [Ratio] 21.0 kg/m2 21.0 k g/m2 [facility] ([facility]) Systolic blood pressure 111 mm[Hg] 111 mm[Hg] A THENA ([facility]) Diastolic blood pressure 72 mm[Hg] 72 mm[Hg] [place] ([facility]) Body height 59.5 [in_i] 59.5 [in_i] [place] ([facility]) Body mass index (BMI) [Ratio] 28.1 kg/m2 28.1 k g/m2 [place] ([facility]) Body weight 2264 [oz_av] 2264 [oz_av] [place] ([facility]) Body weight 62.767 kg 62.767 kg [facility]ENT [facility] Body surface area Derived from formula 1.57 m2 1.57 m2 MEDENT ([facility], ) Systolic blood pressure 118 mm[Hg] 118 mm[Hg] M EDENT ([facility], ) Diastolic blood pressure 62 mm[Hg] 62 mm[Hg] MEDENT ([facility]) Heart rate 79 /min 79 /min MEDENT ([facility]) Body height 58.5 [in_i] 58.5 [in_i] MEDENT ([facility]) 4'10.50" Body weight 138.38 [lb_av] 138.38 [lb_av] MEDEN T ([facility]) Body mass index (BMI) [Ratio] 28.4 kg/m2 28.4 k g/m2 MEDENT ([facility]) [place] body weight 100 [lb_av] 100 [lb_av] MEDEN T ([facility]) Oxygen saturation in Arterial blood by Pulse oximetry 96 % 96 % [facility] ([facility]) Heart rate 101 /min 101 /min MEDENT ([facility], [facility]) Oxygen saturation in Arterial blood by Pulse oximetry 95 % 95 % MEDENT ([facility], [facility]) Body height 68 [in_i] 68 [in_i] MEDENT ([facility], [facility]) 5'8" Systolic blood pressure 106 mm[Hg] 106 mm[Hg] M EDENT ([facility], [facility]) Diastolic blood pressure 70 mm[Hg] 70 mm[Hg] MEDENT ([facility], [facility]) Respiratory rate 14 /min 14 /min MEDENT ( [facility], [facility]) Body temperature 97.3 [degF] 97.3 [degF] MEDENT ([facility], [facility]) Body weight 138.00 [lb_av] 138.00 [lb_av] MEDEN T ([facility], [facility]) Body mass index (BMI) [Ratio] 21.0 kg/m2 21.0 k g/m2 MEDENT ([facility], [facility]) Heart rate 79 /min 79 /min MEDENT ([facility], [facility]) Body height 68 [in_i] 68 [in_i] MEDENT ([facility], [facility]) 5'8" Body mass index (BMI) [Ratio] 21.0 kg/m2 21.0 k g/m2 MEDENT ([facility], [facility]) Systolic blood pressure 123 mm[Hg] 123 mm[Hg] M EDENT ([facility], [facility]) Diastolic blood pressure 76 mm[Hg] 76 mm[Hg] [facility]) Respiratory rate 12 /min 12 /min [facility] ( [facility]) Oxygen saturation in Arterial blood by Pulse oximetry 97 % 97 % [facility] ([facility]) Body temperature 98.7 [degF] 98.7 [degF] [facility] ([facility], [facility]) Body weight 138.00 [lb_av] 138.00 [lb_av] MEDEN T ([facility]) Diastolic blood pressure 68 mm[Hg] 68 mm[Hg] [facility] ([facility]) Heart rate 97 /min 97 /min [facility] ([facility], ) Oxygen saturation in Arterial blood by Pulse oximetry 99 % 99 % [facility] ([facility]) Body height 58.5 [in_i] 58.5 [in_i] [facility] ([facility]) 4'10.50" Body weight 138.12 [lb_av] 138.12 [lb_av] [facility] Body mass index (BMI) [Ratio] 28.4 kg/m2 28.4 k g/m2 [facility] ([facility]) Systolic blood pressure 112 mm[Hg] 112 mm[Hg] [facility], ) [place] body weight 100 [lb_av] 100 [lb_av] MEDEN T ([facility]) Body weight 62.654 kg 62.654 kg [facility] ([facility]) Body surface area Derived from formula 1.57 m2 1.57 m2 [facility] ([facility]) Diastolic blood pressure 84 mm[Hg] 84 mm[Hg] [place] ([facility]) Body height 59.5 [in_i] 59.5 [in_i] [place] ([facility]) Body mass index (BMI) [Ratio] 27.7 kg/m2 27.7 k g/m2 [place] ([facility]) Systolic blood pressure 118 mm[Hg] 118 mm[Hg] [facility] Body weight 2230 [oz_av] 2230 [oz_av] [place] ([facility]) Diastolic blood pressure 84 mm[Hg] 84 mm[Hg] [place] ([facility]) Body height 59.5 [in_i] 59.5 [in_i] [place] ([facility]) Body mass index (BMI) [Ratio] 27.7 kg/m2 27.7 k g/m2 [place] ([facility]) Systolic blood pressure 118 mm[Hg] 118 mm[Hg] [facility] Body weight 2230 [oz_av] 2230 [oz_av] [place] ([facility]) Body weight 2230 [oz_av] 2230 [oz_av] [place] ([facility]) Diastolic blood pressure 84 mm[Hg] 84 mm[Hg] [place] ([facility]) Body height 59.5 [in_i] 59.5 [in_i] [place] ([facility]) Body mass index (BMI) [Ratio] 27.7 kg/m2 27.7 k g/m2 [place] ([facility]) Systolic blood pressure 118 mm[Hg] 118 mm[Hg] [facility] Body height 58 [in_i] 58 [in_i] MEDENT ([facility], ) 4'10" Respiratory rate 12 /min 12 /min MEDENT ( [facility], ) Body weight 130.00 [lb_av] 130.00 [lb_av] MEDEN T ([facility], ) Body mass index (BMI) [Ratio] 27.2 kg/m2 27.2 k g/m2 MEDENT ([facility], ) [place] body weight 100 [lb_av] 100 [lb_av] MEDEN T ([facility], ) Systolic blood pressure 118 mm[Hg] 118 mm[Hg] M EDENT ([facility], [facility]) Oxygen saturation in Arterial blood by Pulse oximetry 97 % 97 % MEDENT ([facility], [facility]) Body temperature 98.2 [degF] 98.2 [degF] MED[facility] ([facility], [facility]) Diastolic blood pressure 80 mm[Hg] 80 mm[Hg] MED[facility] ([facility], [facility]) Heart rate 98 /min 98 /min [facility] ([facility], [facility]) Respiratory rate 14 /min 14 /min MEDENT ( [facility], [facility]) Body weight 130.00 [lb_av] 130.00 [lb_av] MEDEN T ([facility], [facility]) Body height 68 [in_i] 68 [in_i] MEDENT ([facility], [facility]) 5'8" Body mass index (BMI) [Ratio] 19.8 kg/m2 19.8 k g/m2 MEDENT ([facility], [facility]) Body height 59.5 [in_i] 59.5 [in_i] [place] ([facility]) Body mass index (BMI) [Ratio] 26 kg/m2 26 kg/ m2 [place] ([facility]) Body weight 2096 [oz_av] 2096 [oz_av] [place] ([facility]) Body height 59.5 [in_i] 59.5 [in_i] [place] ([facility]) Body mass index (BMI) [Ratio] 26 kg/m2 26 kg/ m2 [place] ([facility]) Body weight 2096 [oz_av] 2096 [oz_av] [place] ([facility]) Body height 59.5 [in_i] 59.5 [in_i] [place] ([facility]) Body mass index (BMI) [Ratio] 26 kg/m2 26 kg/ m2 [place] ([facility]) Body weight 2096 [oz_av] 2096 [oz_av] [place] ([facility]) Body height 59.5 [in_i] 59.5 [in_i] [place] ([facility]) Body mass index (BMI) [Ratio] 26 kg/m2 26 kg/ m2 [place] ([facility]) Body weight 2096 [oz_av] 2096 [oz_av] [place] ([facility]) Diastolic blood pressure 79 mm[Hg] 79 mm[Hg] [place] ([facility]) Body height 59.5 [in_i] 59.5 [in_i] [place] ([facility]) Body mass index (BMI) [Ratio] 26.6 kg/m2 26.6 k g/m2 [place] ([facility]) Systolic blood pressure 114 mm[Hg] 114 mm[Hg] A THENA ([facility]) Body weight 2144 [oz_av] 2144 [oz_av] [place] ([facility]) Diastolic blood pressure 79 mm[Hg] 79 mm[Hg] [place] ([facility]) Systolic blood pressure 114 mm[Hg] 114 mm[Hg] [facility] Body weight 2144 [oz_av] 2144 [oz_av] [place] ([facility]) Body height 59.5 [in_i] 59.5 [in_i] [place] ([facility]) Body mass index (BMI) [Ratio] 26.6 kg/m2 26.6 k g/m2 [place] ([facility]) Diastolic blood pressure 79 mm[Hg] 79 mm[Hg] [place] ([facility]) Body height 59.5 [in_i] 59.5 [in_i] [place] ([facility]) Body mass index (BMI) [Ratio] 26.6 kg/m2 26.6 k g/m2 [place] ([facility]) Systolic blood pressure 114 mm[Hg] 114 mm[Hg] A THENA ([facility]) Body weight 2144 [oz_av] 2144 [oz_av] [place] ([facility]) Diastolic blood pressure 79 mm[Hg] 79 mm[Hg] [place] ([facility]) Body height 59.5 [in_i] 59.5 [in_i] [place] ([facility]) Body mass index (BMI) [Ratio] 26.6 kg/m2 26.6 k g/m2 [place] ([facility]) Systolic blood pressure 114 mm[Hg] 114 mm[Hg] A THENA ([facility]) Body weight 2144 [oz_av] 2144 [oz_av] [place] ([facility]) Diastolic blood pressure 79 mm[Hg] 79 mm[Hg] [place] ([facility]) Body height 59.5 [in_i] 59.5 [in_i] [place] ([facility]) Body mass index (BMI) [Ratio] 26.6 kg/m2 26.6 k g/m2 [place] ([facility]) Systolic blood pressure 114 mm[Hg] 114 mm[Hg] A THENA ([facility]) Body weight 2144 [oz_av] 2144 [oz_av] [place] ([facility]) Oxygen saturation in Arterial blood by Pulse oximetry 99 % 99 % MEDENT ([facility], [facility]) Body temperature 97.8 [degF] 97.8 [degF] MEDENT ([facility], [facility]) Body weight 134.00 [lb_av] 134.00 [lb_av] MEDEN T ([facility], [facility]) Body height 68 [in_i] 68 [in_i] MEDENT ([facility], [facility]) 5'8" Body mass index (BMI) [Ratio] 20.4 kg/m2 20.4 k g/m2 MEDENT ([facility], [facility]) Diastolic blood pressure 78 mm[Hg] 78 mm[Hg] MEDENT ([facility], [facility]) Respiratory rate 12 /min 12 /min MEDENT ( [facility], [facility]) Systolic blood pressure 128 mm[Hg] 128 mm[Hg] M EDENT ([facility], [facility]) Heart rate 80 /min 80 /min [facility] ([facility], [facility]) Diastolic blood pressure 82 mm[Hg] 82 mm[Hg] MEDENT ([facility], [facility]) Oxygen saturation in Arterial blood by Pulse oximetry 98 % 98 % MEDENT ([facility], [facility]) Heart rate 90 /min 90 /min [facility] ([facility], [facility]) Respiratory rate 13 /min 13 /min MEDENT ( [facility], [facility]) Body temperature 98.7 [degF] 98.7 [degF] MEDENT ([facility], [facility]) Body weight 134.00 [lb_av] 134.00 [lb_av] MEDEN T ([facility], [facility]) Body height 68 [in_i] 68 [in_i] MEDENT ([facility] [place], [facility]) 5'8" Body mass index (BMI) [Ratio] 20.4 kg/m2 20.4 k g/m2 MEDENT ([facility], [facility]) Systolic blood pressure 133 mm[Hg] 133 mm[Hg] M EDENT ([facility], [facility]) Systolic blood pressure 119 mm[Hg] 119 mm[Hg] M EDENT ([facility], [facility]) Diastolic blood pressure 75 mm[Hg] 75 mm[Hg] MEDENT ([place] [facility] [place], [facility]) Heart rate 91 /min 91 /min MEDENT ([place] [facility]) Respiratory rate 12 /min 12 /min [facility] ( [place] [facility], [place], [facility]) Oxygen saturation in Arterial blood by Pulse oximetry 96 % 96 % MEDENT ([place] [facility], [place], [facility]) Body temperature 99.1 [degF] 99.1 [degF] MED[facility] ([facility], [facility]) Body weight 134.00 [lb_av] 134.00 [lb_av] MEDEN T ([place] [facility], [place], [facility]) Body height 58 [in_i] 58 [in_i] [facility] ([facility], [place], [facility]) 4'10" Body mass index (BMI) [Ratio] 28.0 kg/m2 28.0 k g/m2 MED[facility] ([place] [facility], [place], [facility]) Diastolic blood pressure 77 mm[Hg] 77 mm[Hg] [place] ([facility]) Body height 59.5 [in_i] 59.5 [in_i] [place] ([facility]) Body mass index (BMI) [Ratio] 26.8 kg/m2 26.8 k g/m2 [place] ([facility]) Systolic blood pressure 127 mm[Hg] 127 mm[Hg] A THENA ([facility]) Body weight 2156.8 [oz_av] 2156.8 [oz_av] ATHEN A ([facility]) Diastolic blood pressure 77 mm[Hg] 77 mm[Hg] [place] ([facility]) Body height 59.5 [in_i] 59.5 [in_i] [place] ([facility]) Body mass index (BMI) [Ratio] 26.8 kg/m2 26.8 k g/m2 [place] ([facility]) Systolic blood pressure 127 mm[Hg] 127 mm[Hg] A THENA ([facility]) Body weight 2156.8 [oz_av] 2156.8 [oz_av] ATHEN A ([facility]) Diastolic blood pressure 77 mm[Hg] 77 mm[Hg] [place] ([facility]) Body height 59.5 [in_i] 59.5 [in_i] [place] ([facility]) Body mass index (BMI) [Ratio] 26.8 kg/m2 26.8 k g/m2 [place] ([facility]) Systolic blood pressure 127 mm[Hg] 127 mm[Hg] A THENA ([facility]) Body weight 2156.8 [oz_av] 2156.8 [oz_av] ATHEN A ([facility]) Diastolic blood pressure 77 mm[Hg] 77 mm[Hg] [place] ([facility]) Body height 59.5 [in_i] 59.5 [in_i] [place] ([facility]) Body mass index (BMI) [Ratio] 26.8 kg/m2 26.8 k g/m2 [place] ([facility]) Systolic blood pressure 127 mm[Hg] 127 mm[Hg] A THENA ([facility]) Body weight 2156.8 [oz_av] 2156.8 [oz_av] ATHEN A ([facility]) Diastolic blood pressure 77 mm[Hg] 77 mm[Hg] [place] ([facility]) Body height 59.5 [in_i] 59.5 [in_i] [place] ([facility]) Body mass index (BMI) [Ratio] 26.8 kg/m2 26.8 k g/m2 [place] ([facility]) Systolic blood pressure 127 mm[Hg] 127 mm[Hg] A THENA ([facility]) Body weight 2156.8 [oz_av] 2156.8 [oz_av] ATHEN A ([facility]) Diastolic blood pressure 77 mm[Hg] 77 mm[Hg] [place] ([facility]) Body height 59.5 [in_i] 59.5 [in_i] [place] ([facility]) Body mass index (BMI) [Ratio] 26.8 kg/m2 26.8 k g/m2 [place] ([facility]) Systolic blood pressure 127 mm[Hg] 127 mm[Hg] A THENA ([facility]) Body weight 2156.8 [oz_av] 2156.8 [oz_av] ATHEN A ([facility]) Body height 59.5 [in_i] 59.5 [in_i] [place] ([facility]) Body height 59.5 [in_i] 59.5 [in_i] [place] ([facility]) Body height 59.5 [in_i] 59.5 [in_i] [place] ([facility]) Body height 59.5 [in_i] 59.5 [in_i] [place] ([facility]) Body height 59.5 [in_i] 59.5 [in_i] [place] ([facility]) Body height 59.5 [in_i] 59.5 [in_i] [place] ([facility]) Body height 59.5 [in_i] 59.5 [in_i] [place] ([facility]) Diastolic blood pressure 78 mm[Hg] 78 mm[Hg] [place] ([facility]) Body weight 2153.6 [oz_av] 2153.6 [oz_av] ATHEN A ([facility]) Body height 59.5 [in_i] 59.5 [in_i] [place] ([facility]) Body mass index (BMI) [Ratio] 26.7 kg/m2 26.7 k g/m2 [place] ([facility]) Systolic blood pressure 117 mm[Hg] 117 mm[Hg] A THENA ([facility]) Systolic blood pressure 117 mm[Hg] 117 mm[Hg] [facility] Body weight 2153.6 [oz_av] 2153.6 [oz_av] ATHEN A ([facility]) Diastolic blood pressure 78 mm[Hg] 78 mm[Hg] [place] ([facility]) Body height 59.5 [in_i] 59.5 [in_i] [place] ([facility]) Body mass index (BMI) [Ratio] 26.7 kg/m2 26.7 k g/m2 [place] ([facility]) Body mass index (BMI) [Ratio] 26.7 kg/m2 26.7 k g/m2 [place] ([facility]) Systolic blood pressure 117 mm[Hg] 117 mm[Hg] [facility] Body weight 2153.6 [oz_av] 2153.6 [oz_av] ATHEN A ([facility]) Diastolic blood pressure 78 mm[Hg] 78 mm[Hg] [place] ([facility]) Body height 59.5 [in_i] 59.5 [in_i] [place] ([facility]) Diastolic blood pressure 78 mm[Hg] 78 mm[Hg] [place] ([facility]) Body height 59.5 [in_i] 59.5 [in_i] [place] ([facility]) Body mass index (BMI) [Ratio] 26.7 kg/m2 26.7 k g/m2 [place] ([facility]) Systolic blood pressure 117 mm[Hg] 117 mm[Hg] [facility] Body weight 2153.6 [oz_av] 2153.6 [oz_av] ATHEN A ([facility]) Diastolic blood pressure 78 mm[Hg] 78 mm[Hg] [place] ([facility]) Body height 59.5 [in_i] 59.5 [in_i] [place] ([facility]) Body mass index (BMI) [Ratio] 26.7 kg/m2 26.7 k g/m2 [place] ([facility]) Systolic blood pressure 117 mm[Hg] 117 mm[Hg] [facility] Body weight 2153.6 [oz_av] 2153.6 [oz_av] ATHEN A ([facility]) Diastolic blood pressure 78 mm[Hg] 78 mm[Hg] [place] ([facility]) Body height 59.5 [in_i] 59.5 [in_i] [place] ([facility]) Body mass index (BMI) [Ratio] 26.7 kg/m2 26.7 k g/m2 [place] ([facility]) Systolic blood pressure 117 mm[Hg] 117 mm[Hg] A [facility] ([facility]) Body weight 2153.6 [oz_av] 2153.6 [oz_av] ATHEN A ([facility]) Diastolic blood pressure 78 mm[Hg] 78 mm[Hg] [place] ([facility]) Body height 59.5 [in_i] 59.5 [in_i] [place] ([facility]) Body mass index (BMI) [Ratio] 26.7 kg/m2 26.7 k g/m2 [place] ([facility]) Systolic blood pressure 117 mm[Hg] 117 mm[Hg] A [facility] ([facility]) Body weight 2153.6 [oz_av] 2153.6 [oz_av] ATHEN A ([facility]) Diastolic blood pressure 78 mm[Hg] 78 mm[Hg] [place] ([facility]) Body height 59.5 [in_i] 59.5 [in_i] [place] ([facility]) Body mass index (BMI) [Ratio] 26.7 kg/m2 26.7 k g/m2 [place] ([facility]) Systolic blood pressure 117 mm[Hg] 117 mm[Hg] A [facility] ([facility]) Body weight 2153.6 [oz_av] 2153.6 [oz_av] ATHEN A ([facility]) Patient Treatment Plan of Care Planned Activity Planned Date Details Description Data Source (s) 12 HR Bupropion Hydrochloride 100 MG Extended Release Oral Tablet [Wellbutrin] [place] ([facility]) topiramate 100 MG Oral Tablet [place] ([facility]) terbinafine 250 MG Oral Tablet [place] ([facility]) sennosides, LONG-TERM 8.6 MG Oral Tablet [Senna-Time] [place] ([facility]) Ondansetron 4 MG Disintegrating Oral Tablet [place] ([facility]) Omeprazole 20 MG Delayed Release Oral Capsule [place] ([facility]) olanzapine 5 MG Oral Tablet [place] ([facility]) Diphenhydramine Hydrochloride 25 MG Oral Tablet [place] ([facility]) Miconazole Nitrate 100 MG Vaginal Suppository [place] ([facility]) Metronidazole 500 MG Oral Tablet [place] ([facility]) methylprednisolone 4 mg tablets in a dos e pack TAKE DIRECTED PER PACKAGE INSTRUCTIONS [place] ([facility]) Ibuprofen 800 MG Oral Tablet [place] ([facility]) benzonatate 200 MG Oral Capsule [place] ([facility]) Diphenhydramine Hydrochloride 50 MG Oral Capsule [Banophen] [place] ([facility]) Diphenhydramine Hydrochloride 25 MG Oral Capsule [Banophen] [place] ([facility]) aripiprazole 5 MG Oral Tablet [place] ([facility]) aripiprazole 2 MG Oral Tablet [place] ([facility]) Loperamide Hydrochloride 2 MG Oral Tablet [place] ([facility]) Amoxicillin 875 MG / Clavulanate 125 MG Oral Tablet [place] ([facility]) Amoxicillin 875 MG Oral Tablet [place] ([facility]) Amoxicillin 500 MG Oral Capsule [place] ([facility]) 12 HR Bupropion Hydrochloride 100 MG Extended Release Oral Tablet [Wellbutrin] [place] ([facility]) topiramate 100 MG Oral Tablet [place] ([facility]) terbinafine 250 MG Oral Tablet [place] ([facility]) sennosides, LONG-TERM 8.6 MG Oral Tablet [Senna-Time] [place] ([facility]) Ondansetron 4 MG Disintegrating Oral Tablet [place] ([facility]) Omeprazole 20 MG Delayed Release Oral Capsule [place] ([facility]) olanzapine 5 MG Oral Tablet [place] ([facility]) Diphenhydramine Hydrochloride 25 MG Oral Tablet [place] ([facility]) Miconazole Nitrate 100 MG Vaginal Suppository [place] ([facility]) Metronidazole 500 MG Oral Tablet [place] ([facility]) methylprednisolone 4 mg tablets in a dos e pack TAKE DIRECTED PER PACKAGE INSTRUCTIONS [place] ([facility]) Ibuprofen 800 MG Oral Tablet [place] ([facility]) benzonatate 200 MG Oral Capsule [place] ([facility]) Diphenhydramine Hydrochloride 50 MG Oral Capsule [Banophen] [place] ([facility]) Diphenhydramine Hydrochloride 25 MG Oral Capsule [Banophen] [place] ([facility]) aripiprazole 5 MG Oral Tablet [place] ([facility]) aripiprazole 2 MG Oral Tablet [place] ([facility]) Loperamide Hydrochloride 2 MG Oral Tablet [place] ([facility]) Amoxicillin 875 MG / Clavulanate 125 MG Oral Tablet [place] ([facility]) Amoxicillin 875 MG Oral Tablet [place] ([facility]) Amoxicillin 500 MG Oral Capsule [place] ([facility]) Omeprazole 20 MG Delayed Release Oral Capsule [place] ([facility]) Diphenhydramine Hydrochloride 25 MG Oral Tablet [place] ([facility]) Metronidazole 500 MG Oral Tablet [place] ([facility]) Ibuprofen 800 MG Oral Tablet [place] ([facility]) Diphenhydramine Hydrochloride 50 MG Oral Capsule [Banophen] [place] ([facility]) Diphenhydramine Hydrochloride 25 MG Oral Capsule [Banophen] [place] ([facility]) aripiprazole 2 MG Oral Tablet [place] ([facility]) Amoxicillin 875 MG / Clavulanate 125 MG Oral Tablet [place] ([facility]) Amoxicillin 875 MG Oral Tablet [place] ([facility]) Amoxicillin 500 MG Oral Capsule [place] ([facility]) Omeprazole 20 MG Delayed Release Oral Capsule [place] ([facility]) Diphenhydramine Hydrochloride 25 MG Oral Tablet [place] ([facility]) Metronidazole 500 MG Oral Tablet [place] ([facility]) Ibuprofen 800 MG Oral Tablet [place] ([facility]) Diphenhydramine Hydrochloride 50 MG Oral Capsule [Banophen] [place] ([facility]) Diphenhydramine Hydrochloride 25 MG Oral Capsule [Banophen] [place] ([facility]) aripiprazole 2 MG Oral Tablet [place] ([facility]) Amoxicillin 875 MG / Clavulanate 125 MG Oral Tablet [place] ([facility]) Amoxicillin 875 MG Oral Tablet [place] ([facility]) Amoxicillin 500 MG Oral Capsule [place] ([facility]) Omeprazole 20 MG Delayed Release Oral Capsule [place] ([facility]) Diphenhydramine Hydrochloride 25 MG Oral Tablet [place] ([facility]) Metronidazole 500 MG Oral Tablet [place] ([facility]) Ibuprofen 800 MG Oral Tablet [place] ([facility]) Diphenhydramine Hydrochloride 50 MG Oral Capsule [Banophen] [place] ([facility]) Diphenhydramine Hydrochloride 25 MG Oral Capsule [Banophen] [place] ([facility]) aripiprazole 2 MG Oral Tablet [place] ([facility]) Amoxicillin 875 MG / Clavulanate 125 MG Oral Tablet [place] ([facility]) Amoxicillin 875 MG Oral Tablet [place] ([facility]) Amoxicillin 500 MG Oral Capsule [place] ([facility]) Omeprazole 20 MG Delayed Release Oral Capsule [place] ([facility]) Diphenhydramine Hydrochloride 25 MG Oral Tablet [place] ([facility]) Metronidazole 500 MG Oral Tablet [place] ([facility]) Ibuprofen 800 MG Oral Tablet [place] ([facility]) Diphenhydramine Hydrochloride 50 MG Oral Capsule [Banophen] [place] ([facility]) Diphenhydramine Hydrochloride 25 MG Oral Capsule [Banophen] [place] ([facility]) aripiprazole 2 MG Oral Tablet [place] ([facility]) Amoxicillin 500 MG Oral Capsule [place] ([facility]) sennosides, LONG-TERM 8.6 MG Oral Tablet [Senna-Time] [place] ([facility]) Omeprazole 20 MG Delayed Release Oral Capsule [place] ([facility]) Diphenhydramine Hydrochloride 25 MG Oral Tablet [place] ([facility]) Metronidazole 500 MG Oral Tablet [place] ([facility]) Ibuprofen 800 MG Oral Tablet [place] ([facility]) Docusate Sodium 100 MG Oral Capsule [DOK] [place] ([facility]) 24 HR Bupropion Hydrochloride 300 MG Extended Release Oral Tablet [place] ([facility]) 24 HR Bupropion Hydrochloride 150 MG Extended Release Oral Tablet [place] ([facility]) Diphenhydramine Hydrochloride 50 MG Oral Capsule [Banophen] [place] ([facility]) Diphenhydramine Hydrochloride 25 MG Oral Capsule [Banophen] [place] ([facility]) aripiprazole 2 MG Oral Tablet [place] ([facility]) Amoxicillin 500 MG Oral Capsule [place] ([facility]) sennosides, LONG-TERM 8.6 MG Oral Tablet [Senna-Time] [place] ([facility]) Omeprazole 20 MG Delayed Release Oral Capsule [place] ([facility]) Diphenhydramine Hydrochloride 25 MG Oral Tablet [place] ([facility]) Metronidazole 500 MG Oral Tablet [place] ([facility]) Ibuprofen 800 MG Oral Tablet [place] ([facility]) Docusate Sodium 100 MG Oral Capsule [DOK] [place] ([facility]) 24 HR Bupropion Hydrochloride 300 MG Extended Release Oral Tablet [place] ([facility]) 24 HR Bupropion Hydrochloride 150 MG Extended Release Oral Tablet [place] ([facility]) Diphenhydramine Hydrochloride 50 MG Oral Capsule [Banophen] [place] ([facility]) Diphenhydramine Hydrochloride 25 MG Oral Capsule [Banophen] [place] ([facility]) aripiprazole 2 MG Oral Tablet [place] ([facility]) Amoxicillin 500 MG Oral Capsule [place] ([facility])
[2021-09-23] MEDS ORDERED: BUPR300T92 (09:02)
[2021-09-23] MEDS ORDERED: [UNRECOGNIZED DRUG - CODE] (09:02)
[2021-09-23] MEDS ORDERED: BUPR150T12 (09:03)
[2021-09-23] MEDS ORDERED: TOPI25TA10 (09:03)
--- OUTSIDE RECORDS SUMMARY | 2021-09-23 11:58 | CCD ---
Author Author [facility] Address Unknown Phone Unavailable Care Team Providers Care Plate Sensitizer Name Role Phone Girish Solorzano MD Unavailable [...] Unavailable Unavailable Girish Solorzano MD Unavailable Unavailable Overton, Norah CORPORATE RECEPTIONIST Unavailable Unavailable Overton, Norah CORPORATE RECEPTIONIST Unavailable Unavailable Overton, Norah CORPORATE RECEPTIONIST Unavailable Unavailable Overton, Norah CORPORATE RECEPTIONIST Unavailable Unavailable Overton, Norah CORPORATE RECEPTIONIST Unavailable Unavailable Overton, Norah CORPORATE RECEPTIONIST Unavailable Unavailable Overton, Norah CORPORATE RECEPTIONIST Unavailable Unavailable Overton, Norah CORPORATE RECEPTIONIST Unavailable Unavailable Overton, Norah CORPORATE RECEPTIONIST Unavailable Unavailable Overton, Norah CORPORATE RECEPTIONIST Unavailable Unavailable Overton, Norah CORPORATE RECEPTIONIST Unavailable Unavailable Overton, Norah CORPORATE RECEPTIONIST Unavailable Unavailable Overton, Norah CORPORATE RECEPTIONIST Unavailable Unavailable CHOI, ZACH IGOR RPA-C Unavailable [...] ZACH IGOR RPA-C Unavailable Unavailable CHOI, ZACH IGRO RPA-C Unavailable Unavailable CHOI, ZACH IGOR RPA-C [...] Unavailable LUIS, CINTHIA PA Unavailable Unavailable LUIS, CNITHIA PA Unavailable Unavailable LUIS, CINTHIA PA Unavailable [...] Unavailable Shaista Fuentes MD Unavailable Unavailable GinaShaista raya MD Unavailable Unavailable Gina, O John LIANG Unavailable Unavailable Gina, O John LIANG Unavailable Unavailable Gina, O John LIANG Unavailable Unavailable Gina, O John LIANG Unavailable Unavailable Gina, O John LIANG Unavailable Unavailable Gina, O John LIANG Unavailable Unavailable Gina, O John LIANG Unavailable Unavailable Gina, O John LIANG Unavailable Unavailable Gina, O John LIANG Unavailable Unavailable Gina, O John LIANG Unavailable Unavailable Gina, O John LIANG Unavailable Unavailable Gina, O John LIANG Unavailable Unavailable Shaista Fuentes MD Unavailable Unavailable [...] M MAURICE PA Unavailable Unavailable ROSENBERG, M MAURCIE PA Unavailable Unavailable ROSENBERG, M MAURICE PA [...] ROSENBERG, M MAURICE PA Unavailable Unavailable ROSENBERGNas KO Unavailable Unavailable ROSENBERGNas Unavailable Unavailable ROSENBERGNas Unavailable [...] is protected by Article 27-F of the [facility] Public Health law. If you continue you may have access to information: Regarding HIV / AIDS; Provided by facilities licensed or operated by the [facility] Office of Mental Health; or Provided by the [facility] Office for People With Developmental Disabilities. If such information is present, then the following [facility] mandated warning applies: This information has been [...] law may result in a fine or care home sentence or both. A general authorization for the release of medical or other information is NOT sufficient authorization for further disc losure. Encounters Encounter Providers Location Date Indications Data Source(s ) Outpatient Attender: YG Santoro Primary 09/17/2021 02:35:00 PM EDT [facility] ([facility]) Gianni Solorzano MD: [address] [place] [phone], Ph. Attender: Gianni Solorzano MD [facility] Medical 09/06/2021 12:00:00 AM EDT [place] ([facility]) Outpatient Attender: MAURICE Weiner/Bisi/Benji/Rein dl 08/22/2021 04:00:00 PM EDT [facility] ([facility]) Outpatient Attender: BRYNN locoy 08/11/2021 12:25:00 PM EDT [facility] ([facility]) Igor Choi, RPA-C: [address], [place] [address], Ph. Attender: IGOR CHOI RPA-C [facility] Medical 08/08/2021 12:00:00 AM EDT [place] ([facility]) Igor Choi RPA-C: [address], [place] [address], Ph. Attender: IGOR CHOI RPA-C [facility] Medical 08/08/2021 12:00:00 AM EDT [place] ([facility]) Outpatient Attender: CINTHIA Buitrago ry 07/12/2021 09:10:00 AM EDT [facility] ([facility]) Outpatient Attender: MAURICE Weiner/Marshall/Benji/Rein dl 07/11/2021 10:30:00 AM EDT [facility] ([facility]) Gianni Solorzano MD: [address] [place] [phone], Ph. Attender: Gianni Solorzano MD [facility] Medical 07/10/2021 12:00:00 AM EDT [place] ([facility]) Gianni Solorzano MD: [address] [place] [phone], Ph. Attender: Gianni Solorzano MD [facility] Medical 07/10/2021 12:00:00 AM EDT [place] ([facility]) Gianni Solorzano MD: [address] [place] [phone], Ph. Attender: Gianni Solorzano MD [facility] Medical 07/10/2021 12:00:00 AM EDT [place] ([facility]) Outpatient Attender: Jonh Fuentes MD Main office - [facility] 06/22/2021 09:00:00 AM EDT [facility] ([facility]) Outpatient Attender: Norah Overton CORPORATE RECEPTIONIST Christi Bernard rene 06/19/2021 03:30:00 PM EDT [facility] ([facility] Gianni Solorzano MD: [address] [place] [phone], Ph. Attender: Gianni Solorzano MD [facility] Medical 04/25/2021 12:00:00 AM EDT [place] ([facility]) Gianni Solorzano MD: [address] [place] [phone], Ph. Attender: Gianni Solorzano MD [facility] Medical 04/25/2021 12:00:00 AM EDT [place] ([facility]) Gianni Solorzano MD: [address] [place] [phone], Ph. Attender: Gianni Solorzano MD [facility] Medical 04/25/2021 12:00:00 AM EDT [place] ([facility]) Gianni Solorzano MD: [address] [place] [phone], Ph. Attender: Gianni Solorzano MD [facility] Medical 04/25/2021 12:00:00 AM EDT [place] ([facility]) Gianni Solorzano MD: [address], [place] [address], Ph. Attender: Gianni Solorzano MD [facility] Medical 03/28/2021 12:00:00 AM EDT [place] ([facility]) Gianni Solorzano MD: [address], [place] [address], Ph. Attender: Gianni Solorzano MD [facility] Medical 03/28/2021 12:00:00 AM EDT [place] ([facility]) Gianni Solorzano MD: [address], [place] [address], Ph. Attender: Gianni Solorzano MD [facility] Medical 03/28/2021 12:00:00 AM EDT [place] ([facility]) Gianni Solorzano MD: [address], [place] [address], Ph. Attender: Gianni Solorzano MD [facility] Medical 03/28/2021 12:00:00 AM EDT [place] ([facility]) Gianni Solorzano MD: [address], [place] [address], Ph. Attender: Gianni Solorzano MD [facility] Medical 03/28/2021 12:00:00 AM EDT [place] ([facility]) Outpatient Attender: BRYNN Santoro Prim yu 03/14/2021 11:30:00 AM EDT [facility] ([facility]) Outpatient Attender: YG Santoro Primary 03/03/2021 11:20:00 AM EDT [facility] ([facility]) Outpatient Attender: YG Santoro Primary 03/01/2021 10:45:00 AM EDT [facility] ([facility]) Gianni Solorzano MD: [address], [place] [address], Ph. Attender: Gianni Solorzano MD [facility] Medical 01/31/2021 12:00:00 AM EST [place] ([facility]) Gianni Solorzano MD: [address], [place] [address], Ph. Attender: Gianni Solorzano MD [facility] Medical 01/31/2021 12:00:00 AM EST [place] ([facility]) Gianni Solorzano MD: [address], [place] [address], Ph. Attender: Gianni Solorzano MD [facility] Medical 01/31/2021 12:00:00 AM EST [place] ([facility]) Gianni Solorzano MD: [address], [place] [address], Ph. Attender: Gianni Solorzano MD [facility] Medical 01/31/2021 12:00:00 AM EST [place] ([facility]) Gianni Solorzano MD: [address], [place] [address], Ph. Attender: Gianin Solorzano MD [facility] Medical 01/31/2021 12:00:00 AM EST [place] ([facility]) Gianni Solorzano MD: [address], [place] [address], Ph. Attender: Gianni Solorzano MD [facility] Medical 01/31/2021 12:00:00 AM EST [place] ([facility]) Gianni Solorzano MD: [address], [place] [address], Ph. Attender: Gianni Solorzano MD [facility] Medical 01/10/2021 12:00:00 AM EST [place] ([facility]) Gianni Solorzano MD: [address], [place] [address], Ph. Attender: Gianni Solorzano MD [facility] Medical 01/10/2021 12:00:00 AM EST [place] ([facility]) Gianni Solorzano MD: [address], [place] [address], Ph. Attender: Gianni Solorzano MD [facility] Medical 01/10/2021 12:00:00 AM EST [place] ([facility]) Gianni Solorzano MD: [address], [place] [address], Ph. Attender: Gianni Solorzano MD [facility] Medical 01/10/2021 12:00:00 AM EST [place] ([facility]) Gianni Solorzano MD: [address], [place] [address], Ph. Attender: Gianni Solorzano MD [facility] Medical 01/10/2021 12:00:00 AM EST [place] ([facility]) Gianni Solorzano MD: [address], [place] [address], Ph. Attender: Gianni Solorzano MD [facility] Medical 01/10/2021 12:00:00 AM EST [place] ([facility]) Gianni Solorzano MD: [address], [place] [address], Ph. Attender: Gianni Solorzano MD [facility] Medical 01/10/2021 12:00:00 AM EST [place] ([facility]) GHULAM De La CruzC: [address], [place] [address], Ph. Attender: BRYANT CHAMPION [facility] Medical 12/22/2020 12:00:00 AM EST [place] ([facility]) Bryant Champion RPA-C: [address], [place] [address], Ph. Attender: BRYANT CHAMPION [facility] Medical 12/22/2020 12:00:00 AM EST [place] ([facility]) Bryant Champion RPA-C: [address], [place] [address], Ph. Attender: BRYANT CHAMPION [facility] Medical 12/22/2020 12:00:00 AM EST [place] ([facility]) GHULAM De La CruzC: [address], [place] [address], Ph. Attender: BRYANT CHAMPION [facility] Medical 12/22/2020 12:00:00 AM EST [place] ([facility]) GHULAM De La CruzC: [address], [place] [address], Ph. Attender: BRYANT CHAMPION [facility] Medical 12/22/2020 12:00:00 AM EST [place] ([facility]) Bryant Champion RPA-C: [address], [place] [address], Ph. Attender: BRYANT CHAMPION [facility] Medical 12/22/2020 12:00:00 AM EST [place] ([facility]) Bryant Champion RPA-C: [address], [place] [address], Ph. Attender: BRYANT CHAMPION [facility] Medical 12/22/2020 12:00:00 AM TICO K[facility] ([facility]) RAMONITA De La Cruz: [address], [place] [address], Ph. Attender: BRYANT CHAMPION [facility] Medical 12/22/2020 12:00:00 AM TICO [facility] ([facility]) Outpatient Attender: IGOR SHIPMAN [facility] 07/28/2020 08:12:01 AM EDT [facility] Medications Medication Brand Name Start Date Product Form Dose Route Admi nistrative Instructions Pharmacy Instructions Status Indications Reaction Description Data Source(s) Promethazine Hydrochloride 12.5 MG Oral Tablet Promethazine HCL 09/17/2021 12:00:00 AM EDT ORAL active M [facility] ([facility]) Amoxicillin 875 MG Oral Tablet Amoxicillin 08/11/2021 12:00:00 AM EDT completed [facility] ([facility]) Loperamide Hydrochloride 2 MG Oral Tablet Loperamide HCL 07/12/2021 12:00:00 AM EDT ORAL completed [facility] ([facility]) Ondansetron 4 MG Disintegrating Oral Tablet Ondansetron 07/12/2021 12:00:00 AM EDT ORAL completed [facility] ([facility]) topiramate 100 MG Oral Tablet Topiramate 06/22/2021 12:00:00 AM EDT ORAL active [facility] ([facility] ) topiramate 25 MG Oral Tablet Topiramate 06/22/2021 12:00:00 AM EDT active [facility] ([facility]) Miconazole Nitrate 100 MG Vaginal Suppository Miconazole 7 06/19/2021 12:00:00 AM EDT VAGINAL completed [facility] ([facility]) Clotrimazole 10 MG/ML Topical Cream Clotrimazole Anti-Fungal 06/19/2021 12:00:00 AM EDT completed [facility] ([facility]) Ondansetron 4 MG Oral Tablet Ondansetron HCL 03/14/2021 12:00:00 AM EDT completed [facility] ([facility]) Amoxicillin 875 MG Oral Tablet Amoxicillin 03/14/2021 12:00:00 AM EDT completed [facility] ([facility]) Methylprednisolone Methylprednisolone 03/03/2021 12:00:00 AM EDT completed [facility] ([facility]) sennosides, RESIDENTIAL 8.6 MG Oral Tablet [Beba a-Time] senna 8.6 mg tablet TAKE ONE TABLET BY MOUTH TWICE DAILY senna 8.6 mg tablet TAKE ONE TABLET BY M OUTH TWICE DAILY completed sennosides, RESIDENTIAL 8.6 MG Oral Tablet [Senna-Time] [facility]) Docusate Sodium 100 MG Oral Capsule [DOK ] DOK 100 mg capsule TAKE ONE CAPSULE BY MOUTH TWICE DAILY DOK 100 mg capsule TAKE ONE CAPSULE BY MOUTH TWICE DAILY completed docusate sodium 100 MG Oral Capsule [DOK] [facility]) Diphenhydramine Hydrochloride 50 MG Oral Capsule [Banophen] Banophen 50 mg capsule TAKE ONE CAPSULE BY MOUTH AT BEDTIME Banophen 50 mg capsule TAKE ONE CAPSULE BY MOUTH AT BEDTIME completed diphenhydramine hydrochloride 50 MG Oral Capsule [Banophen] [facility]) Diphenhydramine Hydrochloride 25 MG Oral Capsule [Banophen] Banophen 25 mg capsule TAKE THREE CAPSULES BY MOUTH AT BEDTIME Banophen 25 mg capsule TAKE THREE CAPSULES BY MOUTH AT BEDTIME com pleted diphenhydramine hydrochloride 25 MG Oral Capsule [Banophen] [facility]) Loperamide Hydrochloride 2 MG Oral Table t Anti-Diarrheal (loperamide) 2 mg tablet TAKE TWO TABLETS BY MOUTH ONCE, THEN TAKE ONE TABLET AFTER EACH LOOSE STOOL Anti-Diarrheal (loperamide) 2 mg tablet TAKE TWO TABLETS BY MOUTH ONCE, THEN TAKE ONE TABLET AFTER EACH LOOSE STOOL completed loperamide hydrochloride 2 MG Oral Tablet [facility]) Ibuprofen 800 MG Oral Tablet ibuprofen 8 00 mg tablet TAKE ONE TABLET BY MOUTH EVERY 8 HOURS NEEDED FOR PAIN LEVEL 6-10 ibuprofen 800 mg tablet TAKE ONE TABLET BY MOUTH EVERY 8 HOURS NEEDED FOR PAIN LEVEL 6-10 completed ibuprofen 800 MG Oral Tablet [facility] ([facility]) Omeprazole 20 MG Delayed Release Oral Ca psule omeprazole 20 mg capsule,delayed release TAKE ONE CAPSULE BY MOUTH ONCE DAILY omeprazole 20 mg capsule,delayed release TAKE ONE CAPSULE BY MOUTH ONCE DAILY completed omeprazole 20 MG Delayed Release Oral Capsule [place] ([facility]) methylprednisolone 4 mg tablets in a dos e pack TAKE DIRECTED PER PACKAGE INSTRUCTIONS [id number] completed me thylprednisolone 4 mg tablets in a dose pack [facility] ([facility]) Ibuprofen 800 MG Oral Tablet ibuprofen 8 00 mg tablet TAKE ONE TABLET BY MOUTH EVERY 8 HOURS NEEDED FOR PAIN LEVEL 6-10 ibuprofen 800 mg tablet TAKE ONE TABLET BY MOUTH EVERY 8 HOURS NEEDED FOR PAIN LEVEL 6-10 completed ibuprofen 800 MG Oral Tablet [facility] ([facility]) Omeprazole 20 MG Delayed Release Oral Ca psule omeprazole 20 mg capsule,delayed release TAKE ONE CAPSULE BY MOUTH ONCE DAILY omeprazole 20 mg capsule,delayed release TAKE ONE CAPSULE BY MOUTH ONCE DAILY completed omeprazole 20 MG Delayed Release Oral Capsule [place] ([facility]) Ibuprofen 800 MG Oral Tablet ibuprofen 8 00 mg tablet TAKE ONE TABLET BY MOUTH EVERY 8 HOURS NEEDED FOR PAIN LEVEL 6-10 ibuprofen 800 mg tablet TAKE ONE TABLET BY MOUTH EVERY 8 HOURS NEEDED FOR PAIN LEVEL 6-10 completed ibuprofen 800 MG Oral Tablet [facility] ([facility]) Diphenhydramine Hydrochloride 50 MG Oral Capsule [Banophen] Banophen 50 mg capsule TAKE ONE CAPSULE BY MOUTH AT BEDTIME Banophen 50 mg capsule TAKE ONE CAPSULE BY MOUTH AT BEDTIME completed diphenhydramine hydrochloride 50 MG Oral Capsule [Banophen] [place] ([facility]) Ondansetron 4 MG Disintegrating Oral Tab let ondansetron 4 mg disintegrating tablet DISSOLVE ONE TABLET ON THE TONGUE EVERY 6 TO 8 HOURS NEEDED FOR NAUSEA AND VOMITING ondansetron 4 mg disintegrating tablet D ISSOLVE ONE TABLET ON THE TONGUE EVERY 6 TO 8 HOURS NEEDED FOR NAUSEA AND VOMITING completed ondansetron 4 MG Disintegrating Oral Tablet [place] ([facility]) Amoxicillin 875 MG Oral Tablet amoxicillin 875 mg tabl et amoxicillin 875 mg tablet completed amoxicillin 875 MG Oral Tablet [place] ([facility]) Metronidazole 500 MG Oral Tablet metroni dazole 500 mg tablet TAKE ONE TABLET BY MOUTH TWICE DAILY FOR SEVEN DAYS metronidazole 500 mg tablet TAKE ONE TAB LET BY MOUTH TWICE DAILY FOR SEVEN DAYS compl eted metronidazole 500 MG Oral Tablet [place] ([facility]) Amoxicillin 875 MG / Clavulanate 125 MG Oral Tablet amoxicillin 875 mg-potassium clavulanate 125 mg tablet TAKE ONE TABLET BY MOUTH TWICE DAILY amoxicillin 875 mg-potassium clavulanate 125 mg tablet TAKE ONE TABLET BY MOUTH TWICE DAILY completed amoxicillin 875 MG / c lavulanate 125 MG Oral Tablet [place] ([facility]) Omeprazole 20 MG Delayed Release Oral Ca psule omeprazole 20 mg capsule,delayed release TAKE ONE CAPSULE BY MOUTH ONCE DAILY omeprazole 20 mg capsule,delayed release TAKE ONE CAPSULE BY MOUTH ONCE DAILY completed omeprazole 20 MG Delayed Release Oral Capsule [place] ([facility]) 24 HR Bupropion Hydrochloride 300 MG Ext ended Release Oral Tablet bupropion HCl XL 300 mg 24 hr tablet, extended release bupropion HCl XL 300 mg 24 hr tablet, extended release completed 24 HR bupropion hydrochloride 300 MG Extended Release Oral Tablet [place] ([facility]) Ibuprofen 800 MG Oral Tablet ibuprofen 8 00 mg tablet TAKE ONE TABLET BY MOUTH EVERY 8 HOURS NEEDED FOR PAIN LEVEL 6-10 ibuprofen 800 mg tablet TAKE ONE TABLET BY MOUTH EVERY 8 HOURS NEEDED FOR PAIN LEVEL 6-10 completed ibuprofen 800 MG Oral Tablet [facility] ([facility]) benzonatate 200 MG Oral Capsule benzonat ate 200 mg capsule TAKE ONE CAPSULE BY MOUTH THREE TIMES DAILY FOR 7 DAYS benzonatate 200 mg capsule TAKE ONE CAPS ULE BY MOUTH THREE TIMES DAILY FOR 7 DAYS completed benzonatate 200 MG Oral Capsule [place] ([facility]) benzonatate 200 MG Oral Capsule benzonat ate 200 mg capsule TAKE ONE CAPSULE BY MOUTH THREE TIMES DAILY FOR 7 DAYS benzonatate 200 mg capsule TAKE ONE CAPS ULE BY MOUTH THREE TIMES DAILY FOR 7 DAYS completed benzonatate 200 MG Oral Capsule [place] ([facility]) aripiprazole 2 MG Oral Tablet aripiprazo le 2 mg tablet TAKE ONE TABLET BY MOUTH ONCE DAILY aripiprazole 2 mg tablet TAKE ONE TABLET BY MOUTH ONCE DAILY completed aripiprazole 2 MG Oral Ta blet [place] ([facility]) 24 HR Bupropion Hydrochloride 150 MG Ext ended Release Oral Tablet bupropion HCl XL 150 mg 24 hr tablet, extended release bupropion HCl XL 150 mg 24 hr tablet, extended release completed 24 HR bupropion hydrochloride 150 MG Extended Release Oral Tablet [place] ([facility]) Amoxicillin 500 MG Oral Capsule amoxicil ethel 500 mg capsule TAKE ONE CAPSULE BY MOUTH EVERY 8 HOURS UNTIL GONE amoxicillin 500 mg capsule TAKE ONE CAPS ULE BY MOUTH EVERY 8 HOURS UNTIL GONE complet ed amoxicillin 500 MG Oral Capsule [place] ([facility]) Amoxicillin 875 MG Oral Tablet amoxicillin 875 mg tabl et amoxicillin 875 mg tablet completed amoxicillin 875 MG Oral Tablet [place] ([facility]) Amoxicillin 500 MG Oral Capsule amoxicil ethel 500 mg capsule TAKE ONE CAPSULE BY MOUTH EVERY 8 HOURS UNTIL GONE amoxicillin 500 mg capsule TAKE ONE CAPS ULE BY MOUTH EVERY 8 HOURS UNTIL GONE complet ed amoxicillin 500 MG Oral Capsule [place] ([facility]) Diphenhydramine Hydrochloride 25 MG Oral Tablet [facility] (diphenhydramine) 25 mg tablet TAKE ONE TABLET BY MOUTH AT BEDTIME [facility] (diphenhydramine) 25 mg tablet TAKE ONE TABLET BY MOUTH AT BEDTIME completed diphenhydramin e hydrochloride 25 MG Oral Tablet [place] ([facility]) aripiprazole 2 MG Oral Tablet aripiprazo le 2 mg tablet TAKE ONE TABLET BY MOUTH ONCE DAILY aripiprazole 2 mg tablet TAKE ONE TABLET BY MOUTH ONCE DAILY completed aripiprazole 2 MG Oral Ta blet [place] ([facility]) sennosides, RESIDENTIAL 8.6 MG Oral Tablet [Beba a-Time] senna 8.6 mg tablet TAKE ONE TABLET BY MOUTH TWICE DAILY senna 8.6 mg tablet TAKE ONE TABLET BY M OUTH TWICE DAILY completed sennosides, RESIDENTIAL 8.6 MG Oral Tablet [Senna-Time] [place] ([facility]) Docusate Sodium 100 MG Oral Capsule [DOK ] DOK 100 mg capsule TAKE ONE CAPSULE BY MOUTH TWICE DAILY DOK 100 mg capsule TAKE ONE CAPSULE BY MOUTH TWICE DAILY completed docusate sodium 100 MG Oral Capsule [DOK] [place] ([facility]) Diphenhydramine Hydrochloride 25 MG Oral Tablet [facility] Sleep Aid (diphenhydramine) 25 mg tablet TAKE ONE TABLET BY MOUTH AT BEDTIME [facility] Sleep Aid (diphenhydramine) 25 mg tablet TAKE ONE TABLET BY MOUTH AT BEDTIME completed diphenhydramin e hydrochloride 25 MG Oral Tablet [place] ([facility]) Amoxicillin 500 MG Oral Capsule amoxicil ethel 500 mg capsule TAKE ONE CAPSULE BY MOUTH EVERY 8 HOURS UNTIL GONE amoxicillin 500 mg capsule TAKE ONE CAPS ULE BY MOUTH EVERY 8 HOURS UNTIL GONE complet ed amoxicillin 500 MG Oral Capsule [facility] er) 12 HR Bupropion Hydrochloride 100 MG Ext ended Release Oral Tablet [Wellbutrin] Wellbutrin SR 100 mg tablet, 12 hr sustained-release Take 1 tablet every day by oral route. Wellbutrin SR 100 mg tablet, 12 hr susta ined-release Take 1 tablet every day by oral route. 1 completed 12 HR bupropion hydrochloride 100 MG Extended Release Oral Tablet [Wellbutrin] [place] ([facility]) Diphenhydramine Hydrochloride 25 MG Oral Tablet [facility] Sleep Aid (diphenhydramine) 25 mg tablet TAKE ONE TABLET BY MOUTH AT BEDTIME [facility] Sleep Aid (diphenhydramine) 25 mg tablet TAKE ONE TABLET BY MOUTH AT BEDTIME completed diphenhydramin e hydrochloride 25 MG Oral Tablet [place] ([facility]) Omeprazole 20 MG Delayed Release Oral Ca psule omeprazole 20 mg capsule,delayed release TAKE ONE CAPSULE BY MOUTH ONCE DAILY omeprazole 20 mg capsule,delayed release TAKE ONE CAPSULE BY MOUTH ONCE DAILY completed omeprazole 20 MG Delayed Release Oral Capsule [place] ([facility]) Diphenhydramine Hydrochloride 25 MG Oral Tablet [facility] Sleep Aid (diphenhydramine) 25 mg tablet TAKE ONE TABLET BY MOUTH AT BEDTIME [facility] Sleep Aid (diphenhydramine) 25 mg tablet TAKE ONE TABLET BY MOUTH AT BEDTIME completed diphenhydramin e hydrochloride 25 MG Oral Tablet [place] ([facility]) Ibuprofen 800 MG Oral Tablet ibuprofen 8 00 mg tablet TAKE ONE TABLET BY MOUTH EVERY 8 HOURS NEEDED FOR PAIN LEVEL 6-10 ibuprofen 800 mg tablet TAKE ONE TABLET BY MOUTH EVERY 8 HOURS NEEDED FOR PAIN LEVEL 6-10 completed ibuprofen 800 MG Oral Tablet [facility] [place] ([facility]) aripiprazole 2 MG Oral Tablet aripiprazo le 2 mg tablet TAKE ONE TABLET BY MOUTH ONCE DAILY aripiprazole 2 mg tablet TAKE ONE TABLET BY MOUTH ONCE DAILY completed aripiprazole 2 MG Oral Ta blet [place] ([facility]) Diphenhydramine Hydrochloride 25 MG Oral Capsule [Banophen] Banophen 25 mg capsule TAKE THREE CAPSULES BY MOUTH AT BEDTIME Banophen 25 mg capsule TAKE THREE CAPSULES BY MOUTH AT BEDTIME com pleted diphenhydramine hydrochloride 25 MG Oral Capsule [Banophen] [place] ([facility]) Diphenhydramine Hydrochloride 25 MG Oral Capsule [Banophen] Banophen 25 mg capsule TAKE THREE CAPSULES BY MOUTH AT BEDTIME Banophen 25 mg capsule TAKE THREE CAPSULES BY MOUTH AT BEDTIME com pleted diphenhydramine hydrochloride 25 MG Oral Capsule [Banophen] [place] ([facility]) aripiprazole 2 MG Oral Tablet aripiprazo le 2 mg tablet TAKE ONE TABLET BY MOUTH ONCE DAILY aripiprazole 2 mg tablet TAKE ONE TABLET BY MOUTH ONCE DAILY completed aripiprazole 2 MG Oral Ta blet [place] ([facility]) Omeprazole 20 MG Delayed Release Oral Ca psule omeprazole 20 mg capsule,delayed release TAKE ONE CAPSULE BY MOUTH ONCE DAILY omeprazole 20 mg capsule,delayed release TAKE ONE CAPSULE BY MOUTH ONCE DAILY completed omeprazole 20 MG Delayed Release Oral Capsule [place] ([facility]) Amoxicillin 500 MG Oral Capsule amoxicil ethel 500 mg capsule TAKE ONE CAPSULE BY MOUTH EVERY 8 HOURS UNTIL GONE amoxicillin 500 mg capsule TAKE ONE CAPS ULE BY MOUTH EVERY 8 HOURS UNTIL GONE complet ed amoxicillin 500 MG Oral Capsule [place] ([facility]) Diphenhydramine Hydrochloride 25 MG Oral Capsule [Banophen] Banophen 25 mg capsule TAKE THREE CAPSULES BY MOUTH AT BEDTIME Banophen 25 mg capsule TAKE THREE CAPSULES BY MOUTH AT BEDTIME com pleted diphenhydramine hydrochloride 25 MG Oral Capsule [Banophen] [place] ([facility]) Metronidazole 500 MG Oral Tablet metroni dazole 500 mg tablet TAKE ONE TABLET BY MOUTH TWICE DAILY FOR SEVEN DAYS metronidazole 500 mg tablet TAKE ONE TAB LET BY MOUTH TWICE DAILY FOR SEVEN DAYS compl eted metronidazole 500 MG Oral Tablet [place] ([facility]) Diphenhydramine Hydrochloride 25 MG Oral Capsule [Banophen] Banophen 25 mg capsule TAKE THREE CAPSULES BY MOUTH AT BEDTIME Banophen 25 mg capsule TAKE THREE CAPSULES BY MOUTH AT BEDTIME com pleted diphenhydramine hydrochloride 25 MG Oral Capsule [Banophen] [place] ([facility]) aripiprazole 5 MG Oral Tablet aripiprazo le 5 mg tablet TAKE 1/2 TABLET BY MOUTH EVERY MORNING aripiprazole 5 mg tablet TAKE 1/2 TABLET BY MOUTH EVERY MORN ING completed aripiprazole 5 MG Oral Tablet [place] ([facility]) Diphenhydramine Hydrochloride 50 MG Oral Capsule [Banophen] Banophen 50 mg capsule TAKE ONE CAPSULE BY MOUTH AT BEDTIME Banophen 50 mg capsule TAKE ONE CAPSULE BY MOUTH AT BEDTIME completed diphenhydramine hydrochloride 50 MG Oral Capsule [Banophen] [place] ([facility]) 24 HR Bupropion Hydrochloride 300 MG Ext ended Release Oral Tablet bupropion HCl XL 300 mg 24 hr tablet, extended release bupropion HCl XL 300 mg 24 hr tablet, extended release completed 24 HR bupropion hydrochloride 300 MG Extended Release Oral Tablet [place] ([facility]) Amoxicillin 500 MG Oral Capsule amoxicil ethel 500 mg capsule TAKE ONE CAPSULE BY MOUTH EVERY 8 HOURS UNTIL GONE amoxicillin 500 mg capsule TAKE ONE CAPS ULE BY MOUTH EVERY 8 HOURS UNTIL GONE complet ed amoxicillin 500 MG Oral Capsule [place] ([facility]) Amoxicillin 875 MG / Clavulanate 125 MG Oral Tablet amoxicillin 875 mg-potassium clavulanate 125 mg tablet TAKE ONE TABLET BY MOUTH TWICE DAILY amoxicillin 875 mg-potassium clavulanate 125 mg tablet TAKE ONE TABLET BY MOUTH TWICE DAILY completed amoxicillin 875 MG / c lavulanate 125 MG Oral Tablet [place] ([facility]) Amoxicillin 875 MG / Clavulanate 125 MG Oral Tablet amoxicillin 875 mg-potassium clavulanate 125 mg tablet TAKE ONE TABLET BY MOUTH TWICE DAILY amoxicillin 875 mg-potassium clavulanate 125 mg tablet TAKE ONE TABLET BY MOUTH TWICE DAILY completed amoxicillin 875 MG / c lavulanate 125 MG Oral Tablet [place] ([facility]) Amoxicillin 500 MG Oral Capsule amoxicil ethel 500 mg capsule TAKE ONE CAPSULE BY MOUTH EVERY 8 HOURS UNTIL GONE amoxicillin 500 mg capsule TAKE ONE CAPS ULE BY MOUTH EVERY 8 HOURS UNTIL GONE complet ed amoxicillin 500 MG Oral Capsule [place] ([facility]) olanzapine 5 MG Oral Tablet olanzapine 5 mg tablet TAKE ONE TABLET BY MOUTH AT BEDTIME olanzapine 5 mg tablet TAKE ONE TABLET BY MOUTH AT BEDTIME completed olanzapine 5 MG Oral Tablet [facility]) Diphenhydramine Hydrochloride 25 MG Oral Tablet [facility] Sleep Aid (diphenhydramine) 25 mg tablet TAKE ONE TABLET BY MOUTH AT BEDTIME [facility] Sleep Aid (diphenhydramine) 25 mg tablet TAKE ONE TABLET BY MOUTH AT BEDTIME completed diphenhydramin e hydrochloride 25 MG Oral Tablet [place] ([facility]) topiramate 100 MG Oral Tablet topiramate 100 mg tablet TAKE ONE TABLET BY MOUTH AT BEDTIME topiramate 100 mg tablet TAKE ONE TABLET BY MOUTH AT BEDTIME completed topiramate 100 MG Oral Ta blet [place] ([facility]) Metronidazole 500 MG Oral Tablet metroni dazole 500 mg tablet TAKE ONE TABLET BY MOUTH TWICE DAILY FOR SEVEN DAYS metronidazole 500 mg tablet TAKE ONE TAB LET BY MOUTH TWICE DAILY FOR SEVEN DAYS compl eted metronidazole 500 MG Oral Tablet [place] ([facility]) Ondansetron 4 MG Disintegrating Oral Tab let ondansetron 4 mg disintegrating tablet DISSOLVE ONE TABLET ON THE TONGUE EVERY 6 TO 8 HOURS NEEDED FOR NAUSEA AND VOMITING ondansetron 4 mg disintegrating tablet D ISSOLVE ONE TABLET ON THE TONGUE EVERY 6 TO 8 HOURS NEEDED FOR NAUSEA AND VOMITING completed ondansetron 4 MG Disintegrating Oral Tablet [place] ([facility]) Miconazole Nitrate 100 MG Vaginal Suppos itory miconazole nitrate 100 mg vaginal suppository insert ONE APPLICATORFUL into THE VAGINA AT BEDTIME FOR 7 DAYS miconazole nitrate 100 mg vaginal suppository insert ONE APPLICATORFUL into THE VAGINA AT BEDTIME FOR 7 DAYS completed miconazole nitrate 100 MG Vaginal Insert [place] ([facility]) aripiprazole 2 MG Oral Tablet aripiprazo le 2 mg tablet TAKE ONE TABLET BY MOUTH ONCE DAILY aripiprazole 2 mg tablet TAKE ONE TABLET BY MOUTH ONCE DAILY completed aripiprazole 2 MG Oral Ta blet [place] ([facility]) Amoxicillin 500 MG Oral Capsule amoxicil ethel 500 mg capsule TAKE ONE CAPSULE BY MOUTH EVERY 8 HOURS UNTIL GONE amoxicillin 500 mg capsule TAKE ONE CAPS ULE BY MOUTH EVERY 8 HOURS UNTIL GONE complet ed amoxicillin 500 MG Oral Capsule [place] ([facility]) Amoxicillin 875 MG / Clavulanate 125 MG Oral Tablet amoxicillin 875 mg-potassium clavulanate 125 mg tablet TAKE ONE TABLET BY MOUTH TWICE DAILY amoxicillin 875 mg-potassium clavulanate 125 mg tablet TAKE ONE TABLET BY MOUTH TWICE DAILY completed amoxicillin 875 MG / c lavulanate 125 MG Oral Tablet [place] ([facility]) Diphenhydramine Hydrochloride 50 MG Oral Capsule [Banophen] Banophen 50 mg capsule TAKE ONE CAPSULE BY MOUTH AT BEDTIME Banophen 50 mg capsule TAKE ONE CAPSULE BY MOUTH AT BEDTIME completed diphenhydramine hydrochloride 50 MG Oral Capsule [Banophen] [place] ([facility]) olanzapine 5 MG Oral Tablet olanzapine 5 mg tablet TAKE ONE TABLET BY MOUTH AT BEDTIME olanzapine 5 mg tablet TAKE ONE TABLET BY MOUTH AT BEDTIME completed olanzapine 5 MG Oral Tablet [place] ([facility]) topiramate 100 MG Oral Tablet topiramate 100 mg tablet TAKE ONE TABLET BY MOUTH AT BEDTIME topiramate 100 mg tablet TAKE ONE TABLET BY MOUTH AT BEDTIME completed topiramate 100 MG Oral Ta blet [place] ([facility]) Diphenhydramine Hydrochloride 25 MG Oral Tablet [facility] (diphenhydramine) 25 mg tablet TAKE ONE TABLET BY MOUTH AT BEDTIME [facility] Sleep Aid (diphenhydramine) 25 mg tablet TAKE ONE TABLET BY MOUTH AT BEDTIME completed diphenhydramin e hydrochloride 25 MG Oral Tablet [place] ([facility]) Ibuprofen 800 MG Oral Tablet ibuprofen 8 00 mg tablet TAKE ONE TABLET BY MOUTH EVERY 8 HOURS NEEDED FOR PAIN LEVEL 6-10 ibuprofen 800 mg tablet TAKE ONE TABLET BY MOUTH EVERY 8 HOURS NEEDED FOR PAIN LEVEL 6-10 completed ibuprofen 800 MG Oral Tablet [facility] ([facility]) Amoxicillin 500 MG Oral Capsule amoxicil ethel 500 mg capsule TAKE ONE CAPSULE BY MOUTH EVERY 8 HOURS UNTIL GONE amoxicillin 500 mg capsule TAKE ONE CAPS ULE BY MOUTH EVERY 8 HOURS UNTIL GONE complet ed amoxicillin 500 MG Oral Capsule [place] ([facility]) sennosides, RESIDENTIAL 8.6 MG Oral Tablet [Beba a-Time] senna 8.6 mg tablet TAKE ONE TABLET BY MOUTH TWICE DAILY senna 8.6 mg tablet TAKE ONE TABLET BY M OUTH TWICE DAILY completed sennosides, RESIDENTIAL 8.6 MG Oral Tablet [Senna-Time] [place] ([facility]) Diphenhydramine Hydrochloride 50 MG Oral Capsule [Banophen] Banophen 50 mg capsule TAKE ONE CAPSULE BY MOUTH AT BEDTIME Banophen 50 mg capsule TAKE ONE CAPSULE BY MOUTH AT BEDTIME completed diphenhydramine hydrochloride 50 MG Oral Capsule [Banophen] [place] ([facility]) sennosides, RESIDENTIAL 8.6 MG Oral Tablet [Beba a-Time] senna 8.6 mg tablet TAKE ONE TABLET BY MOUTH TWICE DAILY senna 8.6 mg tablet TAKE ONE TABLET BY M OUTH TWICE DAILY completed sennosides, RESIDENTIAL 8.6 MG Oral Tablet [Senna-Time] [place] ([facility]) Amoxicillin 875 MG Oral Tablet amoxicillin 875 mg tabl et amoxicillin 875 mg tablet completed amoxicillin 875 MG Oral Tablet [place] ([facility]) Diphenhydramine Hydrochloride 25 MG Oral Capsule [Banophen] Banophen 25 mg capsule TAKE THREE CAPSULES BY MOUTH AT BEDTIME Banophen 25 mg capsule TAKE THREE CAPSULES BY MOUTH AT BEDTIME com pleted diphenhydramine hydrochloride 25 MG Oral Capsule [Banophen] [place] ([facility]) terbinafine 250 MG Oral Tablet terbinafi ne HCl 250 mg tablet TAKE ONE TABLET BY MOUTH ONCE DAILY terbinafine HCl 250 mg tablet TAKE ONE T ABLET BY MOUTH ONCE DAILY completed terbinafine 250 MG Oral Tablet [place] ([facility]) Omeprazole 20 MG Delayed Release Oral Ca psule omeprazole 20 mg capsule,delayed release TAKE ONE CAPSULE BY MOUTH ONCE DAILY omeprazole 20 mg capsule,delayed release TAKE ONE CAPSULE BY MOUTH ONCE DAILY completed omeprazole 20 MG Delayed Release Oral Capsule [place] ([facility]) Diphenhydramine Hydrochloride 50 MG Oral Capsule [Banophen] Banophen 50 mg capsule TAKE ONE CAPSULE BY MOUTH AT BEDTIME Banophen 50 mg capsule TAKE ONE CAPSULE BY MOUTH AT BEDTIME completed diphenhydramine hydrochloride 50 MG Oral Capsule [Banophen] [place] ([facility]) Diphenhydramine Hydrochloride 25 MG Oral Capsule [Banophen] Banophen 25 mg capsule TAKE THREE CAPSULES BY MOUTH AT BEDTIME Banophen 25 mg capsule TAKE THREE CAPSULES BY MOUTH AT BEDTIME com pleted diphenhydramine hydrochloride 25 MG Oral Capsule [Banophen] [place] ([facility]) Miconazole Nitrate 100 MG Vaginal Suppos itory miconazole nitrate 100 mg vaginal suppository insert ONE APPLICATORFUL into THE VAGINA AT BEDTIME FOR 7 DAYS miconazole nitrate 100 mg vaginal suppository insert ONE APPLICATORFUL into THE VAGINA AT BEDTIME FOR 7 DAYS completed miconazole nitrate 100 MG Vaginal Insert [place] ([facility]) Amoxicillin 875 MG Oral Tablet amoxicill in 875 mg tablet TAKE ONE TABLET BY MOUTH EVERY TWELVE HOURS FOR 10 DAYS amoxicillin 875 mg tablet TAKE ONE TABLE T BY MOUTH EVERY TWELVE HOURS FOR 10 DAYS completed amoxicillin 875 MG Oral Tablet [place] ([facility]) Loperamide Hydrochloride 2 MG Oral Table t Anti-Diarrheal (loperamide) 2 mg tablet TAKE TWO TABLETS BY MOUTH ONCE, THEN TAKE ONE TABLET AFTER EACH LOOSE STOOL Anti-Diarrheal (loperamide) 2 mg tablet TAKE TWO TABLETS BY MOUTH ONCE, THEN TAKE ONE TABLET AFTER EACH LOOSE STOOL completed loperamide hydrochloride 2 MG Oral Tablet [place] ([facility]) Omeprazole 20 MG Delayed Release Oral Ca psule omeprazole 20 mg capsule,delayed release TAKE ONE CAPSULE BY MOUTH ONCE DAILY omeprazole 20 mg capsule,delayed release TAKE ONE CAPSULE BY MOUTH ONCE DAILY completed omeprazole 20 MG Delayed Release Oral Capsule [place] ([facility]) terbinafine 250 MG Oral Tablet terbinafi ne HCl 250 mg tablet TAKE ONE TABLET BY MOUTH ONCE DAILY terbinafine HCl 250 mg tablet TAKE ONE T ABLET BY MOUTH ONCE DAILY completed terbinafine 250 MG Oral Tablet [place] ([facility]) Diphenhydramine Hydrochloride 25 MG Oral Tablet [facility] Sleep Aid (diphenhydramine) 25 mg tablet TAKE ONE TABLET BY MOUTH AT BEDTIME [facility] Sleep Aid (diphenhydramine) 25 mg tablet TAKE ONE TABLET BY MOUTH AT BEDTIME completed diphenhydramin e hydrochloride 25 MG Oral Tablet [place] ([facility]) Diphenhydramine Hydrochloride 25 MG Oral Tablet [facility] Aid (diphenhydramine) 25 mg tablet TAKE ONE TABLET BY MOUTH AT BEDTIME [facility] Sleep Aid (diphenhydramine) 25 mg tablet TAKE ONE TABLET BY MOUTH AT BEDTIME completed diphenhydramin e hydrochloride 25 MG Oral Tablet [place] ([facility]) Diphenhydramine Hydrochloride 50 MG Oral Capsule [Banophen] Banophen 50 mg capsule TAKE ONE CAPSULE BY MOUTH AT BEDTIME Banophen 50 mg capsule TAKE ONE CAPSULE BY MOUTH AT BEDTIME completed diphenhydramine hydrochloride 50 MG Oral Capsule [Banophen] [place] ([facility]) Metronidazole 500 MG Oral Tablet metroni dazole 500 mg tablet TAKE ONE TABLET BY MOUTH TWICE DAILY FOR SEVEN DAYS metronidazole 500 mg tablet TAKE ONE TAB LET BY MOUTH TWICE DAILY FOR SEVEN DAYS compl eted metronidazole 500 MG Oral Tablet [place] ([facility]) Metronidazole 500 MG Oral Tablet metroni dazole 500 mg tablet TAKE ONE TABLET BY MOUTH TWICE DAILY FOR SEVEN DAYS metronidazole 500 mg tablet TAKE ONE TAB LET BY MOUTH TWICE DAILY FOR SEVEN DAYS compl eted metronidazole 500 MG Oral Tablet [place] ([facility]) Metronidazole 500 MG Oral Tablet metroni dazole 500 mg tablet TAKE ONE TABLET BY MOUTH TWICE DAILY FOR SEVEN DAYS metronidazole 500 mg tablet TAKE ONE TAB LET BY MOUTH TWICE DAILY FOR SEVEN DAYS compl eted metronidazole 500 MG Oral Tablet [place] ([facility]) Metronidazole 500 MG Oral Tablet metroni dazole 500 mg tablet TAKE ONE TABLET BY MOUTH TWICE DAILY FOR SEVEN DAYS metronidazole 500 mg tablet TAKE ONE TAB LET BY MOUTH TWICE DAILY FOR SEVEN DAYS compl eted metronidazole 500 MG Oral Tablet [place] ([facility]) aripiprazole 2 MG Oral Tablet aripiprazo le 2 mg tablet TAKE ONE TABLET BY MOUTH ONCE DAILY aripiprazole 2 mg tablet TAKE ONE TABLET BY MOUTH ONCE DAILY completed aripiprazole 2 MG Oral Ta blet [place] ([facility]) Diphenhydramine Hydrochloride 50 MG Oral Capsule [Banophen] Banophen 50 mg capsule TAKE ONE CAPSULE BY MOUTH AT BEDTIME Banophen 50 mg capsule TAKE ONE CAPSULE BY MOUTH AT BEDTIME completed diphenhydramine hydrochloride 50 MG Oral Capsule [Banophen] [place] ([facility]) aripiprazole 2 MG Oral Tablet aripiprazo le 2 mg tablet TAKE ONE TABLET BY MOUTH ONCE DAILY aripiprazole 2 mg tablet TAKE ONE TABLET BY MOUTH ONCE DAILY completed aripiprazole 2 MG Oral Ta blet [place] ([facility]) aripiprazole 2 MG Oral Tablet aripiprazo le 2 mg tablet TAKE ONE TABLET BY MOUTH ONCE DAILY aripiprazole 2 mg tablet TAKE ONE TABLET BY MOUTH ONCE DAILY completed aripiprazole 2 MG Oral Ta blet [place] ([facility]) Ibuprofen 800 MG Oral Tablet ibuprofen 8 00 mg tablet TAKE ONE TABLET BY MOUTH EVERY 8 HOURS NEEDED FOR PAIN LEVEL 6-10 ibuprofen 800 mg tablet TAKE ONE TABLET BY MOUTH EVERY 8 HOURS NEEDED FOR PAIN LEVEL 6-10 completed ibuprofen 800 MG Oral Tablet [facility] ([facility]) 24 HR Bupropion Hydrochloride 150 MG Ext ended Release Oral Tablet bupropion HCl XL 150 mg 24 hr tablet, extended release bupropion HCl XL 150 mg 24 hr tablet, extended release completed 24 HR bupropion hydrochloride 150 MG Extended Release Oral Tablet [place] ([facility]) Metronidazole 500 MG Oral Tablet metroni dazole 500 mg tablet TAKE ONE TABLET BY MOUTH TWICE DAILY FOR SEVEN DAYS metronidazole 500 mg tablet TAKE ONE TAB LET BY MOUTH TWICE DAILY FOR SEVEN DAYS compl eted metronidazole 500 MG Oral Tablet [place] ([facility]) aripiprazole 5 MG Oral Tablet aripiprazo le 5 mg tablet TAKE 1/2 TABLET BY MOUTH EVERY MORNING aripiprazole 5 mg tablet TAKE 1/2 TABLET BY MOUTH EVERY MORN ING completed aripiprazole 5 MG Oral Tablet [place] ([facility]) methylprednisolone 4 mg tablets in a dos e pack TAKE DIRECTED PER PACKAGE INSTRUCTIONS [id number] completed me thylprednisolone 4 mg tablets in a dose pack [place] ([facility]) Amoxicillin 875 MG / Clavulanate 125 MG Oral Tablet amoxicillin 875 mg-potassium clavulanate 125 mg tablet TAKE ONE TABLET BY MOUTH TWICE DAILY amoxicillin 875 mg-potassium clavulanate 125 mg tablet TAKE ONE TABLET BY MOUTH TWICE DAILY completed amoxicillin 875 MG / c lavulanate 125 MG Oral Tablet [place] ([facility]) Ibuprofen 800 MG Oral Tablet ibuprofen 8 00 mg tablet TAKE ONE TABLET BY MOUTH EVERY 8 HOURS NEEDED FOR PAIN LEVEL 6-10 ibuprofen 800 mg tablet TAKE ONE TABLET BY MOUTH EVERY 8 HOURS NEEDED FOR PAIN LEVEL 6-10 completed ibuprofen 800 MG Oral Tablet [facility] ([facility]) Amoxicillin 875 MG Oral Tablet amoxicillin 875 mg tabl et amoxicillin 875 mg tablet completed amoxicillin 875 MG Oral Tablet [place] ([facility]) 12 HR Bupropion Hydrochloride 100 MG Ext ended Release Oral Tablet [Wellbutrin] Wellbutrin SR 100 mg tablet, 12 hr sustained-release Take 1 tablet every day by oral route. Wellbutrin SR 100 mg tablet, 12 hr susta ined-release Take 1 tablet every day by oral route. 1 completed 12 HR bupropion hydrochloride 100 MG Extended Release Oral Tablet [Wellbutrin] [place] ([facility]) Omeprazole 20 MG Delayed Release Oral Ca psule omeprazole 20 mg capsule,delayed release TAKE ONE CAPSULE BY MOUTH ONCE DAILY omeprazole 20 mg capsule,delayed release TAKE ONE CAPSULE BY MOUTH ONCE DAILY completed omeprazole 20 MG Delayed Release Oral Capsule [place] ([facility]) Diphenhydramine Hydrochloride 25 MG Oral Capsule [Banophen] Banophen 25 mg capsule TAKE THREE CAPSULES BY MOUTH AT BEDTIME Banophen 25 mg capsule TAKE THREE CAPSULES BY MOUTH AT BEDTIME com pleted diphenhydramine hydrochloride 25 MG Oral Capsule [Banophen] [place] ([facility]) Insurance Providers Payer name Policy type / Coverage type Policy ID Covered constitution party ID Covered constitution party's relationship to calle Policy [place] Plan Information [facility] () Other 0 [id number] Family Dependent Sarah Shoaib 0 [facility] ([facility]) Other 0 [id number] Family Dependent Sarah Shoaib 0 [facility] ([facility]) Other 0 [id number] Family Dependent Sarah Shoaib 0 [facility] ([facility]) Other 0 [id number] Family Dependent Sarah Shoaib 0 [facility] ([facility]) Other 0 [id number] Family Dependent Sarah Shoaib 0 [facility] ([facility]) Other 0 [id number] Family Dependent Sarah Shoaib 0 [facility] ([facility]) Other 0 [id number] Family Dependent Sarah Shoaib 0 [facility] ([facility]) Other 0 [id number] Family Dependent Sarah Shoaib 0 [facility] ([facility]) Other 0 [id number] Family Dependent Sarah Shoaib 0 [facility] ([facility]) Other 0 [id number] Family Dependent Sarah Shoaib 0 [facility] ([facility]) Other 0 [id number] Family Dependent Sarah Shoaib 0 [facility] ([facility]) Other 0 [id number] Family Dependent Sarah Shoa[place] 0 [place] P [id number] P [id number] [place] Other 0 [id number] Self 0 [place] Other 0 [id number] Self 0 [place] Other 0 [id number] Self 0 [place] Other 0 [id number] Self 0 [place] Other 0 [id number] Self 0 [place] Other 0 [id number] Self 0 [place] Other 0 [id number] Self 0 [place] Other 0 [id number] Self 0 [place] Other 0 [id number] Self 0 [place] Other 0 [id number] Self 0 [place] Other 0 [id number] Self 0 [place] Other 0 [id number] Self 0 [place] Other 0 [id number] Self 0 [place] Other 0 [id number] Self 0 [place] [facility] [place] Other 0 [id number] Self 0 [place] [place] Other 0 [id number] Self 0 [facility] [facility] [place] Other 0 [id number] Self 0 [id number] [facility] O [id number] S [id number] [facility] P UNAVAILABLE S UNAVAILABLE Medicaid S UNAVAILABLE S UNAVAILA BLE [place] P MICHI [id number] SP [id number] [facility] MCDO [id number] SP [id number] ANSI-Not a Secondary Insurance [id number] ANSI-Not a Secondary Insurance [id number] ANSI-Not a Secondary Insurance [id number] ANSI-Not a Secondary Insurance [id number] [facility] [id number] SP [id number] MEDICAID [id number] SP [id number] ANSI-Not a Secondary Insurance [id number] ANSI-Not a Secondary Insurance [id number] ANSI-Not a Secondary Insurance [id number] [id number] SP [id number] KULDIP [id number] SP [id number] 500 [place] [employer]MA[employer] [id number] FA2 [id number] [facility] [id number] FA2 [id number] [facility] P [id number] S [id number] Medicaid S [id number] S [id number] MEDICAID [id number] SP [id number] [id number] SP [place] [id number] [facility] [id number] SP [id number] [facility] [id number] FA2 [id number] HEA [id number] P [id number] SELF PAY HEA UNAVAILABLE UNAVAILA BLE [facility] [id number] FA2 [id number] [facility] [id number] SP [id number] Problems, Conditions, and Diagnoses Code Display Name Description Problem Type Effective Dates Data Source(s) 19560883 Eczema Eczema Problem 09/06/2021 12:00:00 AM ED Etta KINNEY ([facility]) G47.33 Obstructive sleep apnea syndrome Obstructive sle ep apnea syndrome Problem 08/22/2021 12:00:00 AM EDT MEDMASON ([facility], ) 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 Central sleep apnea syndr ome Problem 08/22/2021 12:00:00 AM EDT MEDMASON ([facility], ) [id number] Amenorrhea Amenorrhea Problem 07/10/2021 12:00:00 AM ED Etta KINNEY ([facility]) [id number] Amenorrhea Amenorrhea Problem 07/10/2021 12:00:00 AM ED Etta KINNEY ([facility]) [id number] Amenorrhea Amenorrhea Problem 07/10/2021 12:00:00 AM ED T GREGORIA ([facility]) [id number] Migraine Migraine Problem 06/22/2021 12:00:00 AM ED T PARISH ([facility], ) [id number] Tobacco user Tobacco User Problem 04/25/2021 12:00:00 A M EDT GREGORIA ([facility]) [id number] Tobacco user Tobacco User Problem 04/25/2021 12:00:00 A M EDT G[place]IA ([facility]) [id number] Tobacco user Tobacco User Problem 04/25/2021 12:00:00 A M EDT G[place]IA ([facility]) [id number] Tobacco user Tobacco User Problem 04/25/2021 12:00:00 A M EDT G[place] ([facility]) [id number] Eczema of scalp Eczema of Scalp Problem 021 12:00:00 AM EDT G[place] ([facility]) [id number] Migraine Migraine Problem 03/28/2021 12:00:00 AM ED T G[place] ([facility]) [id number] Eczema of scalp Eczema of Scalp Problem 021 12:00:00 AM EDT [place] ([facility] er) [id number] Migraine Migraine Problem 03/28/2021 12:00:00 AM ED T [place] ([facility]) [id number] Eczema of scalp Eczema of Scalp Problem 021 12:00:00 AM EDT G[place]IA ([facility] er) [id number] Migraine Migraine Problem 03/28/2021 12:00:00 AM ED T [place] ([facility]) [id number] Eczema of scalp Eczema of Scalp Problem 021 12:00:00 AM EDT [place] ([facility] er) [id number] Migraine Migraine Problem 03/28/2021 12:00:00 AM ED T [place] ([facility]) [id number] Eczema of scalp Eczema of Scalp Problem 021 12:00:00 AM EDT [place] ([facility] er) [id number] Migraine Migraine Problem 03/28/2021 12:00:00 AM ED T [place] ([facility]) 5988629 Tinea capitis Tinea Capitis Problem 01/31/2021 12 :00:00 AM EST - 03/28/2021 12:00:00 AM EDT G[place] ([facility]) 6013777 Tinea capitis Tinea Capitis Problem 01/31/2021 12 :00:00 AM EST - 03/28/2021 12:00:00 AM EDT [place] ([facility]) 5020236 Tinea capitis Tinea Capitis Problem 01/31/2021 12 :00:00 AM EST - 03/28/2021 12:00:00 AM EDT [place] ([facility] er) [id number] Tinea capitis Tinea Capitis Problem 01/31/2021 12 :00:00 AM EST - 03/28/2021 12:00:00 AM EDT [place] ([facility] er) 9200571 Tinea capitis Tinea Capitis Problem 01/31/2021 12 :00:00 AM EST - 03/28/2021 12:00:00 AM EDT [place] ([facility] er) 7716686 Tinea capitis Tinea Capitis Problem 01/31/2021 12:00:00 AM EST [place] ([facility]) [id number] Fatigue Fatigue Problem 01/10/2021 12:00:00 AM PADMA KINNEY ([facility]) 93491669 Obstructive sleep apnea syndrome Obstructive Sle ep Apnea Syndrome Problem 01/10/2021 12:00:00 AM EST [place] ([facility]) 56047113 Fatigue Fatigue Problem 01/10/2021 12:00:00 AM ES Etta KINNEY ([facility]) 65608122 Obstructive sleep apnea syndrome Obstructive Sle ep Apnea Syndrome Problem 01/10/2021 12:00:00 AM EST [place] ([facility]) [id number] Fatigue Fatigue Problem 01/10/2021 12:00:00 AM ES Etta KINNEY ([facility]) 17528474 Obstructive sleep apnea syndrome Obstructive Sle ep Apnea Syndrome Problem 01/10/2021 12:00:00 AM EST [place] ([facility]) 39375722 Fatigue Fatigue Problem 01/10/2021 12:00:00 AM PADMA KINNEY ([facility]) [id number] Obstructive sleep apnea syndrome Obstructive Sle ep Apnea Syndrome Problem 01/10/2021 12:00:00 AM TICO KINNEY ([facility]) 66436891 Fatigue Fatigue Problem 01/10/2021 12:00:00 AM PADMA KINNEY ([facility]) [id number] Obstructive sleep apnea syndrome Obstructive Sle ep Apnea Syndrome Problem 01/10/2021 12:00:00 AM TICO KINNEY ([facility]) [id number] Fatigue Fatigue Problem 01/10/2021 12:00:00 AM PADMA KINNEY ([facility]) 00329930 Obstructive sleep apnea syndrome Obstructive Sle ep Apnea Syndrome Problem 01/10/2021 12:00:00 AM TICO KINNEY ([facility]) [id number] Fatigue Fatigue Problem 01/10/2021 12:00:00 AM PADMA KINNEY ([facility]) [id number] Obstructive sleep apnea syndrome Obstructive Sle ep Apnea Syndrome Problem 01/10/2021 12:00:00 AM EST [place] ([facility]) [id number] Clinical finding Clinical Finding Problem 12:00:00 AM EDT - 08/08/2021 12:00:00 AM EDT [place] ([facility]) [id number] Body measurement finding Body Measurement Finding Prob bety 05/03/2020 12:00:00 AM EDT - 08/08/2021 12:00:00 AM EDT [place] ([facility]) [id number] Clinical finding Clinical Finding Problem 020 12:00:00 AM EDT - 08/08/2021 12:00:00 AM EDT [place] ([facility]) [id number] Body measurement finding Body Measurement Finding Prob bety 05/03/2020 12:00:00 AM EDT - 08/08/2021 12:00:00 AM EDT [place] ([facility]) Surgeries/Procedures Procedure Description Date Indications Data Source(s) OFFICE OUTPATIENT VISIT 25 MINUTES 09/17/2021 12:00:00 AM EDEtta LUGO ([facility], [facility]) OFFICE OUTPATIENT VISIT 15 MINUTES 08/22/2021 12:00:00 AM EDT MEDENT ([facility], ) OFFICE OUTPATIENT VISIT 15 MINUTES 08/11/2021 12:00:00 AM EDT MEDENT ([facility], [facility]) OFFICE OUTPATIENT NEW 30 MINUTES 07/12/2021 12:00:00 A M EDT MEDENT ([facility], [facility]) OFFICE OUTPATIENT VISIT 15 MINUTES 07/12/2021 12:00:00 AM EDT MEDENT ([facility], [facility]) OFFICE OUTPATIENT NEW 30 MINUTES 07/11/2021 12:00:00 A M EDT MEDENT ([facility], ) Magnetic Resonance Angiogtaphy Head W/O Contrast Material(S) 07/06/2021 12:00:00 AM EDT MEDENT ([facility], ) Magnetic Resonance Angiogtaphy Head W/O Contrast Material(S) 07/06/2021 12:00:00 AM EDT MEDENT ([facility] ) MRI BRAIN BRAIN STEM W/O CONTRAST MATERIAL 07/06/2021 12:00:00 AM EDT [facility] MRI BRAIN BRAIN STEM W/O CONTRAST MATERIAL 07/06/2021 12:00:00 AM EDT MEDENT ([facility], ) OFFICE OUTPATIENT NEW 45 MINUTES 06/22/2021 12:00:00 A M EDT [facility] OFFICE OUTPATIENT VISIT 15 MINUTES 06/19/2021 12:00:00 AM EDT MEDENT ([facility], [facility]) OFFICE OUTPATIENT VISIT 15 MINUTES 03/14/2021 12:00:00 AM EDT MEDENT ([facility], [facility]) OFFICE OUTPATIENT VISIT 15 MINUTES 03/03/2021 12:00:00 AM EDT MEDENT ([facility], [facility]) OFFICE OUTPATIENT NEW 30 MINUTES 03/01/2021 12:00:00 A M EDT MEDENT ([facility], [facility]) Results ID Date Data Source [id number] 09/18/2021 01:04:00 PM EDT MEDENT ([facility]) Name Value Range Interpretation Code Description Data Arlen rce(s) Supporting Document(s) Erythrocyte sedimentation rate by 2H Westergren method 20 mm/hr 0-2 0 MEDENT ([facility], [facility]) Helicobacter pylori IgM Ab [Units/volume] in Serum Laborator y test result 0.0-8.9 MEDENT ([facility]) <content>Negative <9.0</content >
<content>Equivocal 9.0 - 11.0</content>
<content>Positive >11.0</content>
<content>.</content>
<content>.</content>
<content>This test was developed and its performance characteristics</content>
<content>determined by [facility]. It has not been cleared or</content>
<content>approved by the Food and Drug Admin istration.</content>
<content>Performed at: RN - [facility]</content>
<content>[address] [place] [address] [id number]</content>
<content>Rail Layer: Paola Chavez MD, Phone: [phone]</content>
<content></content> Lipoprotein lipase [Enzymatic activity/volume] in Serum or Plasm a 46 U/L 73-393 MEDENT ([facility], [facility]) C reactive protein [Mass/volume] in Serum or Plasma by High sensitivity method 0.41 mg/dL 0.00-0.30 MEDENT ([facility], [facility]) ID Date Data Source [id number] 09/18/2021 01:04:00 PM EDT MEDENT ([facility], [facility]) Name Value Range Interpretation Code Description Data Arlen rc(s) Supporting Document(s) Glucose, Fasting 100 mg/dL 70-100 MEDENT ([facility], [facility]) Blood Urea Nitrogen 13 mg/dL 7-18 MEDENT ([facility], [facility]) Glomerular Filtration Rate Laboratory test result MEDENT ([facility], [facility]) <content>Units are mL/min/1.73 m2</content>
<content></content>
<content>Chronic Kidney Disease Staging per NKF:</content>
<content></content>
<content>Stage I & II GFR >=60 Normal to Mildly Decreased</content>
<content>Stage III GFR 30- 59 Moderately Decreased</content>
<content>Stage IV GFR 15-29 Severely Decreased</content>
<content>Stage V GFR <15 Very Little GFR Left</content>
<content>ESRD GFR <15 on TESTER EQUIPMENT</content>
<content></content> Creatinine For GFR 1.05 mg/dL 0.55-1.30 MEDENT ([facility], [facility]) Potassium Serum 4.2 meq/L 3.5-5.1 MEDENT ([facility], [facility]) Sodium Level 137 meq/L 136-145 MED[facility] ([facility], [facility]) Chloride Level 106 meq/L 98-107 MEDENT ([facility], [facility]) Carbon Dioxide Level 29 meq/L 21-32 [facility] ( [facility], [facility]) Calcium Level 9.4 mg/dL 8.5-10.1 MEDENT ([facility], [facility]) Anion Gap 2 meq/L 8-16 MEDENT ([facility], [facility]) Ast/Sgot 13 U/L 7-37 MEDENT ([facility], [facility]) Alt/SGPT 19 U/L 12-78 MEDENT ([facility], [facility]) Alkaline Phosphatase 88 U/L 45-117 [facility] ( [facility], [facility]) Total Protein 8.3 GM/DL 6.4-8.2 MEDENT ([facility], [facility]) Bilirubin,Total 0.7 mg/dL 0.2-1.0 MEDENT ([facility], [facility]) Albumin 4.1 GM/DL 3.2-5.2 MEDENT ([facility]) Albumin/Globulin Ratio 1.0 1.2-2.2 MEDENT ([facility], [facility]) ID Date Data Source [id number] 09/18/2021 01:04:00 PM EDT MEDENT ([facility], [facility]) Name Value Range Interpretation Code Description Data Arlen rce(s) Supporting Document(s) White Blood Count 7.6 10 4.0-10.0 MED[facility] ([facility] Hematocrit 40.2 % 36.0-47.0 [facility] ([facility]) Red Blood Count 4.39 10 4.00-5.40 MEDENT ([facility], [facility]) Hemoglobin 13.1 g/dL 12.0-15.5 [facility] ([facility]) Mean Corpuscular Hemoglobin 29.8 pg 27.0-33.0 MEDENT ([facility], [facility]) Mean Corpuscular HGB Conc 32.6 g/dL 32.0-36.5 MEDENT ([facility], [facility]) Mean Corpuscular Volume 91.6 fl 80.0-96.0 M EDENT ([facility], [facility]) Platelet Count, Automated 364 10 150-450 MEDENT ([facility], [facility]) Red Cell Distribution Width 13.0 % 11.5-14.5 MEDENT ([facility], [facility]) Neutrophils % 55.2 % 36.0-66.0 MEDENT ([facility] Lymph % 36.5 % 24.0-44.0 MEDENT ([facility]) Stanley % 7.3 % 2.0-8.0 MEDENT ([facility]) Baso % 0.5 % 0.0-1.0 MEDENT ([facility]) Eos % 0.4 % 0.0-3.0 MED[facility] ([facility]) Immature Granulocyte % 0.1 % 0-3.0 MED[facility] ([facility] Nucleated Red Blood Cell % 0.0 % 0-0 MED ENT ([facility], [facility]) Neutrophils # 4.2 10 1.5-8.5 MEDENT ([facility], [facility]) Lymph # 2.8 10 1.5-5.0 MEDENT ([facility]) Stanley # 0.6 10 0.0-0.8 MED[facility] ([facility]) Eos # 0.0 10 0.0-0.5 MED[facility] ([facility]) Baso # 0.0 10 0.0-0.2 MED[facility] ([facility]) ID Date Data Source [id number] 09/18/2021 01:04:00 PM EDT MEDENT ([facility]) Name Value Range Interpretation Code Description Data Arlen rce(s) Supporting Document(s) Erythrocyte sedimentation rate by 2H Westergren method 20 mm/hr 0-2 0 MEDENT ([facility]) Lipoprotein lipase [Enzymatic activity/volume] in Serum or Plasm a 46 U/L 73-393 MED[facility] ([facility]) C reactive protein [Mass/volume] in Serum or Plasma by High sensitivity method 0.41 mg/dL 0.00-0.30 [facility] ID Date Data Source [id number] 09/18/2021 09:00:00 AM EDT MEDENT ([facility]) Name Value Range Interpretation Code Description Data Arlen rce(s) Supporting Document(s) Gastrointestinal (GI) Panel Laboratory test result MEDENT ([facility]) This Gastrointestinal PCR Panel detects the following [...] NUCLEIC ACID PCR ID Date Data Source [id number] 09/17/2021 06:04:00 PM [facility]T [facility] Name Value Range Interpretation Code Description Data Arlen rce(s) Supporting Document(s) Bacteria identified in Urine by Culture Laboratory test [facility] FULL REPORT IN LAB NOTES (eCW and Med[facility] ). SPECIMEN APPEARS CONTAMINATED ID Date Data Source [id number] 07/12/2021 09:54:00 AM EDT [facility] Name Value Range Interpretation Code Description Data Arlen rce(s) Supporting Document(s) Lipoprotein lipase [Enzymatic activity/volume] in Serum or Plasm a 49 U/L 73-393 [facility]) ID Date Data Source [id number] 07/12/2021 09:54:00 AM EDT MEDENT ([facility]) Name Value Range Interpretation Code Description Data Arlen rce(s) Supporting Document(s) Glucose, Fasting 99 mg/dL 70-100 [facility]) Blood Urea Nitrogen 12 mg/dL 7-18 MED[facility] ([facility]) Glomerular Filtration Rate Laboratory test result [facility] ([facility]) <content>Units are mL/min/1.73 m2</content>
<content></content>
<content>Chronic Kidney Disease Staging per NKF:</content>
<content></content>
<content>Stage I & II GFR >=60 Normal to Mildly Decreased</content>
<content>Stage III GFR 30-59 Moderately Decreased</content>
<content>Stage IV GFR 15-29 Severely Decreased</content>
<content>Stage V GFR <15 Very Little GFR Left</content>
<content>ESRD GFR <15 on TESTER EQUIPMENT</content>
<content></content> Sodium Level 138 meq/L 136-145 MED[facility] ([facility], [facility]) Creatinine For GFR 0.87 mg/dL 0.55-1.30 MED[facility] ([facility], [facility]) Carbon Dioxide Level 25 meq/L 21-32 [facility] ( [facility], [facility]) Chloride Level 107 meq/L 98-107 MED[facility] ([facility], [facility]) Potassium Serum 4.0 meq/L 3.5-5.1 [facility] ([facility], [facility]) Calcium Level 8.9 mg/dL 8.5-10.1 MED[facility] ([facility], [facility]) Anion Gap 6 meq/L 8-16 MED[facility] ([facility]) Alt/SGPT 19 U/L 12-78 [facility] ([facility]) Ast/Sgot 16 U/L 7-37 [facility] ([facility]) Alkaline Phosphatase 86 U/L 45-117 [facility] ( [facility], [facility]) Bilirubin,Total 0.4 mg/dL 0.2-1.0 [facility] ([facility], [facility]) Total Protein 8.4 GM/DL 6.4-8.2 MED[facility] ([facility], [facility]) Albumin 4.4 GM/DL 3.2-5.2 [facility] ([facility]) Albumin/Globulin Ratio 1.1 1.2-2.2 [facility] ([facility], [facility]) ID Date Data Source [id number] 07/12/2021 09:54:00 AM EDT MEDENT ([facility], [facility]) Name Value Range Interpretation Code Description Data Arlen rce(s) Supporting Document(s) White Blood Count 9.0 10 4.0-10.0 MED[facility] ([facility]) Red Blood Count 4.27 10 4.00-5.40 [facility] ([facility]) Hemoglobin 13.0 g/dL 12.0-15.5 [facility] ([facility]) Hematocrit 39.8 % 36.0-47.0 [facility] ([facility], [facility]) Mean Corpuscular Volume 93.2 fl 80.0-96.0 M EDENT ([facility], [facility]) Mean Corpuscular HGB Conc 32.7 g/dL 32.0-36.5 MED[facility] ([facility], [facility]) Mean Corpuscular Hemoglobin 30.4 pg 27.0-33.0 [facility] ([facility], [facility]) Red Cell Distribution Width 12.2 % 11.5-14.5 [facility] ([facility], [facility]) Neutrophils % 74.1 % 36.0-66.0 MED[facility] ([facility], [facility]) Platelet Count, Automated 377 10 150-450 [facility] ([facility], [facility]) Lymph % 19.2 % 24.0-44.0 [facility] ([facility]) Stanley % 5.7 % 2.0-8.0 [facility] ([facility]) Immature Granulocyte % 0.6 % 0-3.0 [facility] ([facility], [facility]) Baso % 0.3 % 0.0-1.0 [facility] ([facility], [facility]) Eos % 0.1 % 0.0-3.0 [facility] ([facility], [facility]) Neutrophils # 6.6 10 1.5-8.5 [facility] ([facility], [facility]) Nucleated Red Blood Cell % 0.0 % 0-0 MED ENT ([facility], [facility]) Stanley # 0.5 10 0.0-0.8 [facility] ([facility]) Lymph # 1.7 10 1.5-5.0 [facility] ([facility]) Eos # 0.0 10 0.0-0.5 [facility] ([facility] Baso # 0.0 10 0.0-0.2 [facility] ID Date Data Source [id number] 07/12/2021 09:53:00 AM EDT [facility] ([facility]) Name Value Range Interpretation Code Description Data Arlen rce(s) Supporting Document(s) Bacteria identified in Urine by Culture Laboratory test result [facility] ([facility]) Rx Loperimide/Ondansetron ID Date Data Source [id number] 07/12/2021 12:00:00 AM EDT [facility] Name Value Range Interpretation Code Description Data Arlen rce(s) Supporting Document(s) SARS-CoV2 Rapid Antigen Negative [facility] This lab was reported by [facility]. ID Date Data Source [id number] 06/19/2021 04:25:00 PM EDT MED[facility] ([facility]) Name Value Range Interpretation Code Description Data Arlen rce(s) Supporting Document(s) Bacteria identified in Urine by Culture Laboratory test result [facility] ([facility]) FULL REPORT IN LAB NOTES ([facility] and [facility] ). NO GROWTH CLINICAL SIGNIFICANCE 2 OR MORE ORGANISMS ID Date Data Source [id number] 05/11/2021 10:55:00 AM EDT [facility]) Name Value Range Interpretation Code Description Data Arlen rce(s) Supporting Document(s) HCV RNA PHILIPPE qualitative negative negative HCV RNA PHILIPPE Qualitative [facility]) ID Date Data Source [id number] 05/11/2021 10:55:00 AM EDT [facility]) Name Value Range Interpretation Code Description Data Arlen rce(s) Supporting Document(s) HIV 1&2 screen centaur negative negative HIV 1&2 Scree n [facility]) ID Date Data Source [id number] 05/11/2021 10:55:00 AM EDT [facility]) Name Value Range Interpretation Code Description Data Arlen rce(s) Supporting Document(s) HCG, serum qualitative negative negative HCG, Serum Qu alitative [place] ([facility]) ID Date Data Source [id number] 05/11/2021 10:55:00 AM EDT [facility]) Name Value Range Interpretation Code Description Data Arlen rce(s) Supporting Document(s) syphilis nonreactive nonreactive Syphilis [place] ([facility]) ID Date Data Source [id number] 05/11/2021 10:55:00 AM EDT [place] ([facility]) Name Value Range Interpretation Code Description Data Arlen rce(s) Supporting Document(s) hepatitis B surface antigen negative negative Hepatiti s B Surface Antigen [place] ([facility]) ID Date Data Source [id number] 05/11/2021 10:55:00 AM EDT [facility]) Name Value Range Interpretation Code Description Data Arlen rce(s) Supporting Document(s) hepatitis C virus vishal index < 0.0 <0.8 Hepatiti s C Virus Vishal Index [place] ([facility]) ID Date Data Source [id number] 05/11/2021 10:55:00 AM EDT [facility]) Name Value Range Interpretation Code Description Data Arlen rce(s) Supporting Document(s) glucose, fasting 81 mg/dL 70-100 Glucose, Fasting AT [facility] ([facility]) blood urea nitrogen 17 mg/dL 7-18 Blood Urea Nitro gen [place] ([facility]) creatinine for GFR 0.72 mg/dL 0.55-1.30 Creatinine for GF R [place] ([facility]) glomerular filtration rate > 60.0 >60 Glomerula r Filtration Rate [place] ([facility]) sodium level 136 mEq/L 136-145 Sodium Level [place] ([facility] potassium serum 4.5 mEq/L 3.5-5.1 Potassium Serum A[place] NA ([facility]) chloride level 102 mEq/L 98-107 Chloride Level [place] ([facility]) carbon dioxide level 32 mEq/L 21-32 Carbon Dioxide Level [place] ([facility]) anion gap 2 mEq/L 8-16 Below low normal Anion Gap [place] ( [facility]) calcium level 9.5 mg/dL 8.5-10.1 Calcium Level [place] ( [facility]) AST/SGOT 13 U/L 7-37 AST/SGOT [place] ([facility]) ALT/SGPT 22 U/L 12-78 ALT/SGPT [place] ([facility]) bilirubin,total 0.5 mg/dL 0.2-1.0 Bilirubin,total AT[facility] NA ([facility]) alkaline phosphatase 85 U/L 45-117 Alkaline Phosph atase [place] ([facility]) total protein 7.9 gm/dL 6.4-8.2 Total Protein [place] ( [facility]) albumin 4.0 gm/dL 3.2-5.2 Albumin [place] ([facility]) albumin/globulin ratio 1.2-2.2 Below low normal Albumin /globulin Ratio [place] ([facility]) ID Date Data Source [id number] 05/11/2021 10:55:00 AM EDT [place] ([facility]) Name Value Range Interpretation Code Description Data Arlen rce(s) Supporting Document(s) white blood count 8.6 10 4.0-10.0 White Blood Count [place] ([facility]) red blood count 4.27 10 4.00-5.40 Red Blood Count [place] NA ([facility]) hemoglobin 13.2 g/dL 12.0-15.5 Hemoglobin [place] ([facility]) mean corpuscular volume 94.8 fL 80.0-96.0 Mean Corpusc ular Volume [place] ([facility]) hematocrit 40.5 % 36.0-47.0 Hematocrit [place] ([facility]) mean corpuscular hemoglobin 30.9 pg 27.0-33.0 Mean Cor puscular Hemoglobin [place] ([facility]) red cell distribution width 12.8 % 11.5-14.5 Red Cell Distribution Width [place] ([facility]) mean corpuscular HGB conc 32.6 g/dL 32.0-36.5 Mean Corpu scular HGB Conc [place] ([facility]) platelet count, automated 386 10 150-450 Platelet C ount, Automated [place] ([facility]) nucleated red blood cell % 0.0 % 0-0 Nucleated Red Blood Cell % [place] ([facility]) ID Date Data Source [id number] 05/11/2021 10:55:00 AM EDT [place] ([facility]) Name Value Range Interpretation Code Description Data Arlen rce(s) Supporting Document(s) HCV RNA PHILIPPE qualitative negative negative HCV RNA [place] Qualitative [facility]) ID Date Data Source [id number] 05/11/2021 10:55:00 AM EDT [facility]) Name Value Range Interpretation Code Description Data Arlen rce(s) Supporting Document(s) HIV 1&2 screen [facility] negative negative HIV 1&2 Scree n [facility] [place] ([facility]) ID Date Data Source [id number] 05/11/2021 10:55:00 AM EDT [facility]) Name Value Range Interpretation Code Description Data Arlen rce(s) Supporting Document(s) HCG, serum qualitative negative negative HCG, Serum Qu alitative [facility]) ID Date Data Source [id number] 05/11/2021 10:55:00 AM EDT [facility]) Name Value Range Interpretation Code Description Data Arlen rce(s) Supporting Document(s) syphilis nonreactive nonreactive Syphilis [place] ([facility]) ID Date Data Source [id number] 05/11/2021 10:55:00 AM EDT [place] ([facility]) Name Value Range Interpretation Code Description Data Arlen rce(s) Supporting Document(s) hepatitis B surface antigen negative negative Hepatiti s B Surface Antigen [facility]) ID Date Data Source [id number] 05/11/2021 10:55:00 AM EDT [place] ([facility]) Name Value Range Interpretation Code Description Data Arlen rce(s) Supporting Document(s) hepatitis C virus vishal index < 0.0 <0.8 Hepatiti s C Virus Vishal Index [place] ([facility]) ID Date Data Source [id number] 05/11/2021 10:55:00 AM EDT [place] ([facility]) Name Value Range Interpretation Code Description Data Arlen rce(s) Supporting Document(s) blood urea nitrogen 17 mg/dL 7-18 Blood Urea Nitro gen [place] ([facility]) glucose, fasting 81 mg/dL 70-100 Glucose, Fasting AT [facility] ([facility]) creatinine for GFR 0.72 mg/dL 0.55-1.30 Creatinine for GF R [place] ([facility]) glomerular filtration rate > 60.0 >60 Glomerula r Filtration Rate [place] ([facility]) sodium level 136 mEq/L 136-145 Sodium Level [place] ([facility]) potassium serum 4.5 mEq/L 3.5-5.1 Potassium Serum A[place] NA ([facility]) chloride level 102 mEq/L 98-107 Chloride Level [place] ([facility]) carbon dioxide level 32 mEq/L 21-32 Carbon Dioxide Level [place] ([facility]) anion gap 2 mEq/L 8-16 Below low normal Anion Gap [place] ( [facility]) calcium level 9.5 mg/dL 8.5-10.1 Calcium Level [place] ( [facility]) AST/SGOT 13 U/L 7-37 AST/SGOT [place] ([facility]) ALT/SGPT 22 U/L 12-78 ALT/SGPT [place] ([facility]) alkaline phosphatase 85 U/L 45-117 Alkaline Phosph atase [place] ([facility]) total protein 7.9 gm/dL 6.4-8.2 Total Protein [place] ( [facility]) bilirubin,total 0.5 mg/dL 0.2-1.0 Bilirubin,total [place] NA ([facility]) albumin 4.0 gm/dL 3.2-5.2 Albumin [place] ([facility]) albumin/globulin ratio 1.2-2.2 Below low normal Albumin /globulin Ratio [place] ([facility]) ID Date Data Source [id number] 05/11/2021 10:55:00 AM EDT [place] ([facility]) Name Value Range Interpretation Code Description Data Arlen rce(s) Supporting Document(s) white blood count 8.6 10 4.0-10.0 White Blood Count [place] ([facility]) red blood count 4.27 10 4.00-5.40 Red Blood Count [place] ([facility]) hemoglobin 13.2 g/dL 12.0-15.5 Hemoglobin [place] ([facility]) hematocrit 40.5 % 36.0-47.0 Hematocrit [place] ([facility]) mean corpuscular volume 94.8 fL 80.0-96.0 Mean Corpusc ular Volume [place] ([facility]) mean corpuscular hemoglobin 30.9 pg 27.0-33.0 Mean Cor puscular Hemoglobin [place] ([facility]) mean corpuscular HGB conc 32.6 g/dL 32.0-36.5 Mean Corpu scular HGB Conc [place] ([facility]) red cell distribution width 12.8 % 11.5-14.5 Red Cell Distribution Width [place] ([facility]) platelet count, automated 386 10 150-450 Platelet C ount, Automated [place] ([facility]) nucleated red blood cell % 0.0 % 0-0 Nucleated Red Blood Cell % [place] ([facility]) ID Date Data Source [id number] 05/11/2021 10:55:00 AM EDT [facility]) Name Value Range Interpretation Code Description Data Arlen rce(s) Supporting Document(s) HCV RNA PHILIPPE qualitative negative negative HCV RNA [place] Qualitative [place] ([facility]) ID Date Data Source [id number] 05/11/2021 10:55:00 AM EDT [place] ([facility]) Name Value Range Interpretation Code Description Data Arlen rce(s) Supporting Document(s) HIV 1&2 screen [facility] negative negative HIV 1&2 Scree n [facility] [place] ([facility]) ID Date Data Source [id number] 05/11/2021 10:55:00 AM EDT [facility]) Name Value Range Interpretation Code Description Data Arlen rce(s) Supporting Document(s) HCG, serum qualitative negative negative HCG, Serum Qu alitative [facility]) ID Date Data Source [id number] 05/11/2021 10:55:00 AM EDT [facility]) Name Value Range Interpretation Code Description Data Arlen rce(s) Supporting Document(s) syphilis nonreactive nonreactive Syphilis [place] ([facility]) ID Date Data Source [id number] 05/11/2021 10:55:00 AM EDT [facility]) Name Value Range Interpretation Code Description Data Arlen rce(s) Supporting Document(s) hepatitis B surface antigen negative negative Hepatiti s B Surface Antigen [facility]) ID Date Data Source [id number] 05/11/2021 10:55:00 AM EDT [facility]) Name Value Range Interpretation Code Description Data Arlen rce(s) Supporting Document(s) hepatitis C virus vishal index < 0.0 <0.8 Hepatiti s C Virus Vishal Index [place] ([facility]) ID Date Data Source [id number] 05/11/2021 10:55:00 AM EDT [place] ([facility]) Name Value Range Interpretation Code Description Data Arlen rce(s) Supporting Document(s) glucose, fasting 81 mg/dL 70-100 Glucose, Fasting AT [facility] ([facility]) blood urea nitrogen 17 mg/dL 7-18 Blood Urea Nitro gen [place] ([facility]) creatinine for GFR 0.72 mg/dL 0.55-1.30 Creatinine for GF R [place] ([facility]) glomerular filtration rate > 60.0 >60 Glomerula r Filtration Rate [place] ([facility]) sodium level 136 mEq/L 136-145 Sodium Level [place] ([facility]) potassium serum 4.5 mEq/L 3.5-5.1 Potassium Serum [place] ([facility]) carbon dioxide level 32 mEq/L 21-32 Carbon Dioxide Level [place] ([facility]) chloride level 102 mEq/L 98-107 Chloride Level [place] ([facility]) anion gap 2 mEq/L 8-16 Below low normal Anion Gap [place] ( [facility]) AST/SGOT 13 U/L 7-37 AST/SGOT [place] ([facility]) calcium level 9.5 mg/dL 8.5-10.1 Calcium Level [place] ( [facility]) ALT/SGPT 22 U/L 12-78 ALT/SGPT [place] ([facility]) alkaline phosphatase 85 U/L 45-117 Alkaline Phosph atase [place] ([facility]) bilirubin,total 0.5 mg/dL 0.2-1.0 Bilirubin,total [place] ([facility]) total protein 7.9 gm/dL 6.4-8.2 Total Protein [place] ( [facility]) albumin 4.0 gm/dL 3.2-5.2 Albumin [place] ([facility]) albumin/globulin ratio 1.2-2.2 Below low normal Albumin /globulin Ratio [place] ([facility]) ID Date Data Source [id number] 05/11/2021 10:55:00 AM EDT [place] ([facility]) Name Value Range Interpretation Code Description Data Arlen rce(s) Supporting Document(s) white blood count 8.6 10 4.0-10.0 White Blood Count [place] ([facility]) hemoglobin 13.2 g/dL 12.0-15.5 Hemoglobin [place] ([facility]) red blood count 4.27 10 4.00-5.40 Red Blood Count [place] ([facility]) hematocrit 40.5 % 36.0-47.0 Hematocrit [place] ([facility]) mean corpuscular volume 94.8 fL 80.0-96.0 Mean Corpusc ular Volume [place] ([facility]) mean corpuscular hemoglobin 30.9 pg 27.0-33.0 Mean Cor puscular Hemoglobin [place] ([facility]) mean corpuscular HGB conc 32.6 g/dL 32.0-36.5 Mean Corpu scular HGB Conc [place] ([facility]) red cell distribution width 12.8 % 11.5-14.5 Red Cell Distribution Width [place] ([facility]) platelet count, automated 386 10 150-450 Platelet C ount, Automated [place] ([facility]) nucleated red blood cell % 0.0 % 0-0 Nucleated Red Blood Cell % [place] ([facility]) ID Date Data Source [id number] 05/11/2021 10:51:00 AM EDT [place] ([facility]) Name Value Range Interpretation Code Description Data Arlen rce(s) Supporting Document(s) chlamydia DNA amplification negative negative Chlamydi a DNA Amplification [place] ([facility]) GC DNA amplification negative negative GC DNA Amplific ation [place] ([facility]) ID Date Data Source [id number] 05/11/2021 10:51:00 AM EDT [facility]) Name Value Range Interpretation Code Description Data Arlen rce(s) Supporting Document(s) chlamydia DNA amplification negative negative Chlamydi a DNA Amplification [place] ([facility]) GC DNA amplification negative negative GC DNA Amplific [facility]) ID Date Data Source [id number] 05/11/2021 10:51:00 AM EDT [facility]) Name Value Range Interpretation Code Description Data Arlen rce(s) Supporting Document(s) chlamydia DNA amplification negative negative Chlamydi a DNA Amplification [place] ([facility]) GC DNA amplification negative negative GC DNA Amplific ion [facility]) ID Date Data Source [id number] 04/12/2021 12:25:00 PM EDT [facility]) Name Value Range Interpretation Code Description Data Arlen rce(s) Supporting Document(s) ebv viral capsid Ag IgM <36.0 0.0-35.9 Ebv Viral Ca psid Ag IgM [place] ([facility]) ebv viral capsid Ag IgG >600.0 0.0-17.9 Above high normal Ebv Viral Capsid Ag IgG [facility]) ebv Ab to nuclear antigen 277.0 U/mL 0.0-17.9 Above high norm al Ebv Ab to Nuclear Antigen [place] ([facility]) ebv interpretation . Ebv Interpretatio n [facility]) ID Date Data Source [id number] 04/12/2021 12:25:00 PM EDT [facility]) Name Value Range Interpretation Code Description Data Arlen rce(s) Supporting Document(s) lyme disease IgG/IgM antibodie <0.91 0.00-0.90 Lyme Disease IgG/IgM Antibodie [facility]) lyme disease IgM Ab quantitati <0.80 0.00-0.79 Lyme Disease IgM Ab Quantitati [facility]) ID Date Data Source [id number] 04/12/2021 12:25:00 PM EDT [facility]) Name Value Range Interpretation Code Description Data Arlen rce(s) Supporting Document(s) ebv viral capsid Ag IgM <36.0 0.0-35.9 [facility] viral capsid Ag IgG >600.0 0.0-17.9 Above high normal Ebv Viral Capsid Ag IgG [place] ([facility]) ebv Ab to nuclear antigen 277.0 U/mL 0.0-17.9 Above high norm al Ebv Ab to Nuclear Antigen [place] ([facility]) ebv interpretation . Ebv Interpretatio n [facility]) ID Date Data Source [id number] 04/12/2021 12:25:00 PM EDT [facility]) Name Value Range Interpretation Code Description Data Arlen rce(s) Supporting Document(s) lyme disease IgG/IgM antibodie <0.91 0.00-0.90 Lyme Disease IgG/IgM Antibodie [facility]) lyme disease IgM Ab quantitati <0.80 0.00-0.79 Lyme Disease IgM Ab Quantitati [facility]) ID Date Data Source [id number] 04/12/2021 12:25:00 PM EDT [facility]) Name Value Range Interpretation Code Description Data Arlen rce(s) Supporting Document(s) ebv viral capsid Ag IgG >600.0 0.0-17.9 Above high normal Ebv Viral Capsid Ag IgG [place] ([facility]) ebv viral capsid Ag IgM <36.0 0.0-35.9 Ebv Viral Ca psid Ag IgM [facility]) ebv Ab to nuclear antigen 277.0 U/mL 0.0-17.9 Above high norm al Ebv Ab to Nuclear Antigen [facility]) ebv interpretation . Ebv Interpretatio n [facility]) ID Date Data Source [id number] 04/12/2021 12:25:00 PM EDT [facility]) Name Value Range Interpretation Code Description Data Arlen rce(s) Supporting Document(s) lyme disease IgG/IgM antibodie <0.91 0.00-0.90 Lyme Disease IgG/IgM Antibodie [place] ([facility]) lyme disease IgM Ab quantitati <0.80 0.00-0.79 Lyme Disease IgM Ab Quantitati [facility]) ID Date Data Source [id number] 04/12/2021 12:25:00 PM EDT [facility]) Name Value Range Interpretation Code Description Data Arlen rce(s) Supporting Document(s) ebv Ab to nuclear antigen 277.0 U/mL 0.0-17.9 Above high norm al Ebv Ab to Nuclear Antigen [place] ([facility]) ebv viral capsid Ag IgM <36.0 0.0-35.9 Ebv Viral Ca psid Ag IgM [place] ([facility]) ebv viral capsid Ag IgG >600.0 0.0-17.9 Above high normal Ebv Viral Capsid Ag IgG [facility]) ebv interpretation . Ebv Interpretatio n [facility]) ID Date Data Source [id number] 04/12/2021 12:25:00 PM EDT [facility]) Name Value Range Interpretation Code Description Data Arlen rce(s) Supporting Document(s) lyme disease IgG/IgM antibodie <0.91 0.00-0.90 Lyme Disease IgG/IgM Antibodie [place] ([facility]) lyme disease IgM Ab quantitati <0.80 0.00-0.79 Lyme Disease IgM Ab Quantitati [facility]) ID Date Data Source [id number] 04/12/2021 12:01:00 PM EDT [facility]) Name Value Range Interpretation Code Description Data Arlen rce(s) Supporting Document(s) HCG, serum qualitative negative negative HCG, Serum Qu alitative [place] ([facility]) ID Date Data Source [id number] 04/12/2021 12:01:00 PM EDT [place] ([facility]) Name Value Range Interpretation Code Description Data Arlen rce(s) Supporting Document(s) mono reflex ebv comp negative negative [place] Reflex Ebv Comp [place] ([facility]) ID Date Data Source [id number] 04/12/2021 12:01:00 PM EDT [facility]) Name Value Range Interpretation Code Description Data Arlen rce(s) Supporting Document(s) free T4 0.92 NG/dL 0.76-1.46 Free T4 [place] ([facility]) ID Date Data Source [id number] 04/12/2021 12:01:00 PM EDT [facility]) Name Value Range Interpretation Code Description Data Arlen rce(s) Supporting Document(s) thyroid stimulating hormone 0.594 uIU/mL 0.358-3.740 Thyroid Stimulating Hormone [place] ([facility]) ID Date Data Source [id number] 04/12/2021 12:01:00 PM EDT [place] ([facility]) Name Value Range Interpretation Code Description Data Arlen rce(s) Supporting Document(s) blood urea nitrogen 11 mg/dL 7-18 Blood Urea Nitro gen [place] ([facility]) glucose, fasting 76 mg/dL 70-100 Glucose, Fasting AT [facility] ([facility]) sodium level 138 mEq/L 136-145 Sodium Level [place] ([facility]) creatinine for GFR 0.79 mg/dL 0.55-1.30 Creatinine for GF R [place] ([facility]) glomerular filtration rate > 60.0 >60 Glomerula r Filtration Rate [place] ([facility]) potassium serum 4.1 mEq/L 3.5-5.1 Potassium Serum AT[facility] NA ([facility]) chloride level 103 mEq/L 98-107 Chloride Level [place] ([facility]) anion gap 5 mEq/L 8-16 Below low normal Anion Gap [place] ( [facility]) carbon dioxide level 30 mEq/L 21-32 Carbon Dioxide Level [place] ([facility]) calcium level 9.1 mg/dL 8.5-10.1 Calcium Level [place] ( [facility]) ID Date Data Source [id number] 04/12/2021 12:01:00 PM EDT [place] ([facility]) Name Value Range Interpretation Code Description Data Arlen rce(s) Supporting Document(s) AST/SGOT 11 U/L 7-37 AST/SGOT [place] ([facility]) ALT/SGPT 16 U/L 12-78 ALT/SGPT [place] ([facility]) bilirubin,total 0.9 mg/dL 0.2-1.0 Bilirubin,total [facility] ([facility]) alkaline phosphatase 71 U/L 45-117 Alkaline Phosph atase [place] ([facility]) bilirubin,direct 0.2 mg/dL 0.0-0.2 Bilirubin,direct AT [place] ([facility]) total protein 8.0 gm/dL 6.4-8.2 Total Protein [place] ( [facility]) albumin/globulin ratio 1.2-2.2 Below low normal Albumin /globulin Ratio [place] ([facility]) albumin 4.1 gm/dL 3.2-5.2 Albumin [place] ([facility]) ID Date Data Source [id number] 04/12/2021 12:01:00 PM EDT [place] ([facility]) Name Value Range Interpretation Code Description Data Arlen rce(s) Supporting Document(s) white blood count 8.7 10 4.0-10.0 White Blood Count [place] ([facility]) red blood count 4.29 10 4.00-5.40 Red Blood Count ATHE NA ([facility]) hemoglobin 13.2 g/dL 12.0-15.5 Hemoglobin [place] ([facility]) hematocrit 40.0 % 36.0-47.0 Hematocrit [place] ([facility]) mean corpuscular hemoglobin 30.8 pg 27.0-33.0 Mean Cor puscular Hemoglobin [place] ([facility]) mean corpuscular volume 93.2 fL 80.0-96.0 Mean Corpusc ular Volume [place] ([facility]) red cell distribution width 12.7 % 11.5-14.5 Red Cell Distribution Width [place] ([facility]) mean corpuscular HGB conc 33.0 g/dL 32.0-36.5 Mean Corpu scular HGB Conc [place] ([facility]) platelet count, automated 296 10 150-450 Platelet C ount, Automated [place] ([facility]) neutrophils % 63.4 % 36.0-66.0 Neutrophils % [place] ( [facility]) lymph % 28.4 % 24.0-44.0 Lymph % [place] ([facility]) mono % 7.3 % 2.0-8.0 Stanley % [place] ([facility]) eos % 0.2 % 0.0-3.0 Eos % [place] ([facility]) baso % 0.5 % 0.0-1.0 Baso % [place] ([facility]) nucleated red blood cell % 0.0 % 0-0 Nucleated Red Blood Cell % [place] ([facility]) immature granulocyte % 0.2 % 0-3.0 Immature Gran ulocyte % [place] ([facility]) neutrophils # 5.5 10 1.5-8.5 Neutrophils # [place] ( [facility]) lymph # 2.5 10 1.5-5.0 Lymph # [place] ([facility]) mono # 0.6 10 0.0-0.8 Stanley # [place] ([facility]) baso # 0.0 10 0.0-0.2 Baso # [place] ([facility]) eos # 0.0 10 0.0-0.5 Eos # [place] ([facility]) ID Date Data Source [id number] 04/12/2021 12:01:00 PM EDT [place] ([facility]) Name Value Range Interpretation Code Description Data Arlen rce(s) Supporting Document(s) HCG, serum qualitative negative negative HCG, Serum Qu alitative [facility]) ID Date Data Source [id number] 04/12/2021 12:01:00 PM EDT [place] ([facility]) Name Value Range Interpretation Code Description Data Arlen rce(s) Supporting Document(s) mono reflex ebv comp negative negative [place] Reflex Ebv Comp [facility]) ID Date Data Source [id number] 04/12/2021 12:01:00 PM EDT [facility]) Name Value Range Interpretation Code Description Data Arlen rce(s) Supporting Document(s) free T4 0.92 NG/dL 0.76-1.46 Free T4 [place] ([facility]) ID Date Data Source [id number] 04/12/2021 12:01:00 PM EDT [facility]) Name Value Range Interpretation Code Description Data Arlen rce(s) Supporting Document(s) thyroid stimulating hormone 0.594 uIU/mL 0.358-3.740 Thyroid Stimulating Hormone [place] ([facility]) ID Date Data Source [id number] 04/12/2021 12:01:00 PM EDT [facility]) Name Value Range Interpretation Code Description Data Arlen rce(s) Supporting Document(s) glucose, fasting 76 mg/dL 70-100 Glucose, Fasting AT [facility]) blood urea nitrogen 11 mg/dL 7-18 Blood Urea Nitro gen [place] ([facility]) creatinine for GFR 0.79 mg/dL 0.55-1.30 Creatinine for GF R [place] ([facility]) glomerular filtration rate > 60.0 >60 Glomerula r Filtration Rate [place] ([facility]) sodium level 138 mEq/L 136-145 Sodium Level [place] ([facility]) carbon dioxide level 30 mEq/L 21-32 Carbon Dioxide Level [place] ([facility]) chloride level 103 mEq/L 98-107 Chloride Level [place] ([facility]) potassium serum 4.1 mEq/L 3.5-5.1 Potassium Serum ATHE NA ([facility]) anion gap 5 mEq/L 8-16 Below low normal Anion Gap [place] ( [facility]) calcium level 9.1 mg/dL 8.5-10.1 Calcium Level [place] ( [facility]) ID Date Data Source [id number] 04/12/2021 12:01:00 PM EDT [place] ([facility]) Name Value Range Interpretation Code Description Data Arlen rce(s) Supporting Document(s) AST/SGOT 11 U/L 7-37 AST/SGOT [place] ([facility]) ALT/SGPT 16 U/L 12-78 ALT/SGPT [place] ([facility]) alkaline phosphatase 71 U/L 45-117 Alkaline Phosph atase [place] ([facility]) bilirubin,direct 0.2 mg/dL 0.0-0.2 Bilirubin,direct AT [facility]) bilirubin,total 0.9 mg/dL 0.2-1.0 Bilirubin,total ATHE NA ([facility]) albumin 4.1 gm/dL 3.2-5.2 Albumin [place] ([facility]) total protein 8.0 gm/dL 6.4-8.2 Total Protein [place] ( [facility]) albumin/globulin ratio 1.2-2.2 Below low normal Albumin /globulin Ratio [place] ([facility]) ID Date Data Source [id number] 04/12/2021 12:01:00 PM EDT [place] ([facility]) Name Value Range Interpretation Code Description Data Arlen rce(s) Supporting Document(s) white blood count 8.7 10 4.0-10.0 White Blood Count [place] ([facility]) red blood count 4.29 10 4.00-5.40 Red Blood Count [place] NA ([facility]) hematocrit 40.0 % 36.0-47.0 Hematocrit [place] ([facility]) hemoglobin 13.2 g/dL 12.0-15.5 Hemoglobin [place] ([facility]) mean corpuscular hemoglobin 30.8 pg 27.0-33.0 Mean Cor puscular Hemoglobin [place] ([facility]) mean corpuscular volume 93.2 fL 80.0-96.0 Mean Corpusc ular Volume [place] ([facility]) mean corpuscular HGB conc 33.0 g/dL 32.0-36.5 Mean Corpu scular HGB Conc [place] ([facility]) red cell distribution width 12.7 % 11.5-14.5 Red Cell Distribution Width [place] ([facility]) platelet count, automated 296 10 150-450 Platelet C ount, Automated [place] ([facility]) lymph % 28.4 % 24.0-44.0 Lymph % [place] ([facility]) neutrophils % 63.4 % 36.0-66.0 Neutrophils % [place] ( [facility]) mono % 7.3 % 2.0-8.0 [place] % [place] ([facility]) eos % 0.2 % 0.0-3.0 Eos % [place] ([facility]) immature granulocyte % 0.2 % 0-3.0 Immature Gran ulocyte % [place] ([facility]) baso % 0.5 % 0.0-1.0 Baso % [place] ([facility]) nucleated red blood cell % 0.0 % 0-0 Nucleated Red Blood Cell % [place] ([facility]) neutrophils # 5.5 10 1.5-8.5 Neutrophils # [place] ( [facility]) mono # 0.6 10 0.0-0.8 [place] # [place] ([facility]) lymph # 2.5 10 1.5-5.0 Lymph # [place] ([facility]) eos # 0.0 10 0.0-0.5 Eos # [place] ([facility]) baso # 0.0 10 0.0-0.2 Baso # [place] ([facility]) ID Date Data Source [id number] 04/12/2021 12:01:00 PM EDT [place] ([facility]) Name Value Range Interpretation Code Description Data Arlen rce(s) Supporting Document(s) HCG, serum qualitative negative negative HCG, Serum Qu alitative [facility]) ID Date Data Source [id number] 04/12/2021 12:01:00 PM EDT [place] ([facility]) Name Value Range Interpretation Code Description Data Arlen rce(s) Supporting Document(s) mono reflex ebv comp negative negative [place] Reflex Ebv Comp [place] ([facility]) ID Date Data Source [id number] 04/12/2021 12:01:00 PM EDT [place] ([facility]) Name Value Range Interpretation Code Description Data Arlen rce(s) Supporting Document(s) free T4 0.92 NG/dL 0.76-1.46 Free T4 [place] ([facility]) ID Date Data Source [id number] 04/12/2021 12:01:00 PM EDT [facility]) Name Value Range Interpretation Code Description Data Arlen rce(s) Supporting Document(s) thyroid stimulating hormone 0.594 uIU/mL 0.358-3.740 Thyroid Stimulating Hormone [place] ([facility]) ID Date Data Source [id number] 04/12/2021 12:01:00 PM EDT [place] ([facility]) Name Value Range Interpretation Code Description Data Arlen rce(s) Supporting Document(s) glucose, fasting 76 mg/dL 70-100 Glucose, Fasting AT [facility] ([facility]) blood urea nitrogen 11 mg/dL 7-18 Blood Urea Nitro gen [place] ([facility]) creatinine for GFR 0.79 mg/dL 0.55-1.30 Creatinine for GF R [place] ([facility]) glomerular filtration rate > 60.0 >60 Glomerula r Filtration Rate [place] ([facility]) sodium level 138 mEq/L 136-145 Sodium Level [place] ([facility]) potassium serum 4.1 mEq/L 3.5-5.1 Potassium Serum ATH NA ([facility]) chloride level 103 mEq/L 98-107 Chloride Level [place] ([facility]) carbon dioxide level 30 mEq/L 21-32 Carbon Dioxide Level [place] ([facility]) anion gap 5 mEq/L 8-16 Below low normal Anion Gap [place] ( [facility]) calcium level 9.1 mg/dL 8.5-10.1 Calcium Level [place] ( [facility]) ID Date Data Source [id number] 04/12/2021 12:01:00 PM EDT [facility]) Name Value Range Interpretation Code Description Data Arlen rce(s) Supporting Document(s) ALT/SGPT 16 U/L 12-78 ALT/SGPT [place] ([facility]) AST/SGOT 11 U/L 7-37 AST/SGOT [place] ([facility]) alkaline phosphatase 71 U/L 45-117 Alkaline Phosph atase [place] ([facility]) bilirubin,total 0.9 mg/dL 0.2-1.0 Bilirubin,total ATHE [facility]) total protein 8.0 gm/dL 6.4-8.2 Total Protein [place] ( [facility]) bilirubin,direct 0.2 mg/dL 0.0-0.2 Bilirubin,direct AT [facility]) albumin 4.1 gm/dL 3.2-5.2 Albumin [place] ([facility]) albumin/globulin ratio 1.2-2.2 Below low normal Albumin /globulin Ratio [place] ([facility]) ID Date Data Source [id number] 04/12/2021 12:01:00 PM EDT [place] ([facility]) Name Value Range Interpretation Code Description Data Arlen rce(s) Supporting Document(s) red blood count 4.29 10 4.00-5.40 Red Blood Count [place] NA ([facility]) white blood count 8.7 10 4.0-10.0 White Blood Count [place] ([facility]) hematocrit 40.0 % 36.0-47.0 Hematocrit [place] ([facility]) hemoglobin 13.2 g/dL 12.0-15.5 Hemoglobin [place] ([facility]) mean corpuscular volume 93.2 fL 80.0-96.0 Mean Corpusc ular Volume [place] ([facility]) mean corpuscular hemoglobin 30.8 pg 27.0-33.0 Mean Cor puscular Hemoglobin [place] ([facility]) mean corpuscular HGB conc 33.0 g/dL 32.0-36.5 Mean Corpu scular HGB Conc [place] ([facility]) platelet count, automated 296 10 150-450 Platelet C ount, Automated [place] ([facility]) red cell distribution width 12.7 % 11.5-14.5 Red Cell Distribution Width [place] ([facility]) lymph % 28.4 % 24.0-44.0 Lymph % [place] ([facility]) neutrophils % 63.4 % 36.0-66.0 Neutrophils % [place] ( [facility]) mono % 7.3 % 2.0-8.0 [place] % [place] ([facility]) eos % 0.2 % 0.0-3.0 Eos % [place] ([facility]) baso % 0.5 % 0.0-1.0 Baso % [place] ([facility]) immature granulocyte % 0.2 % 0-3.0 Immature Gran ulocyte % [place] ([facility]) neutrophils # 5.5 10 1.5-8.5 Neutrophils # [place] ( [facility]) nucleated red blood cell % 0.0 % 0-0 Nucleated Red Blood Cell % [place] ([facility]) lymph # 2.5 10 1.5-5.0 Lymph # [place] ([facility]) mono # 0.6 10 0.0-0.8 [place] # [place] ([facility]) eos # 0.0 10 0.0-0.5 Eos # [place] ([facility]) baso # 0.0 10 0.0-0.2 Baso # [place] ([facility]) ID Date Data Source [id number] 04/12/2021 12:01:00 PM EDT [place] ([facility]) Name Value Range Interpretation Code Description Data Arlen rce(s) Supporting Document(s) HCG, serum qualitative negative negative HCG, Serum Qu alitative [place] ([facility]) ID Date Data Source [id number] 04/12/2021 12:01:00 PM EDT [facility]) Name Value Range Interpretation Code Description Data Arlen rce(s) Supporting Document(s) mono reflex ebv comp negative negative [place] Reflex Ebv Comp [place] ([facility]) ID Date Data Source [id number] 04/12/2021 12:01:00 PM EDT [facility]) Name Value Range Interpretation Code Description Data Arlen rce(s) Supporting Document(s) free T4 0.92 NG/dL 0.76-1.46 Free T4 [facility]) ID Date Data Source [id number] 04/12/2021 12:01:00 PM EDT [facility]) Name Value Range Interpretation Code Description Data Arlen rce(s) Supporting Document(s) thyroid stimulating hormone 0.594 uIU/mL 0.358-3.740 Thyroid Stimulating Hormone [place] ([facility]) ID Date Data Source [id number] 04/12/2021 12:01:00 PM EDT [place] ([facility]) Name Value Range Interpretation Code Description Data Arlen rce(s) Supporting Document(s) glucose, fasting 76 mg/dL 70-100 Glucose, Fasting AT [facility]) blood urea nitrogen 11 mg/dL 7-18 Blood Urea Nitro gen [place] ([facility]) creatinine for GFR 0.79 mg/dL 0.55-1.30 Creatinine for GF R [place] ([facility]) potassium serum 4.1 mEq/L 3.5-5.1 Potassium Serum ATH NA ([facility]) sodium level 138 mEq/L 136-145 Sodium Level [place] ([facility]) glomerular filtration rate > 60.0 >60 Glomerula r Filtration Rate [place] ([facility]) carbon dioxide level 30 mEq/L 21-32 Carbon Dioxide Level [place] ([facility]) chloride level 103 mEq/L 98-107 Chloride Level [place] ([facility]) calcium level 9.1 mg/dL 8.5-10.1 Calcium Level [place] ( [facility]) anion gap 5 mEq/L 8-16 Below low normal Anion Gap [place] ( [facility]) ID Date Data Source [id number] 04/12/2021 12:01:00 PM EDT [place] ([facility]) Name Value Range Interpretation Code Description Data Arlen rce(s) Supporting Document(s) alkaline phosphatase 71 U/L 45-117 Alkaline Phosph atase [place] ([facility]) AST/SGOT 11 U/L 7-37 AST/SGOT [place] ([facility]) ALT/SGPT 16 U/L 12-78 ALT/SGPT [place] ([facility]) bilirubin,direct 0.2 mg/dL 0.0-0.2 Bilirubin,direct AT [place] ([facility]) bilirubin,total 0.9 mg/dL 0.2-1.0 Bilirubin,total ATHE NA ([facility]) total protein 8.0 gm/dL 6.4-8.2 Total Protein [place] ( [facility]) albumin 4.1 gm/dL 3.2-5.2 Albumin [place] ([facility]) albumin/globulin ratio 1.2-2.2 Below low normal Albumin /globulin Ratio [place] ([facility]) ID Date Data Source [id number] 04/12/2021 12:01:00 PM EDT [place] ([facility]) Name Value Range Interpretation Code Description Data Arlen rce(s) Supporting Document(s) white blood count 8.7 10 4.0-10.0 White Blood Count [place] ([facility]) red blood count 4.29 10 4.00-5.40 Red Blood Count [place] ([facility]) hemoglobin 13.2 g/dL 12.0-15.5 Hemoglobin [place] ([facility]) mean corpuscular volume 93.2 fL 80.0-96.0 Mean Corpusc ular Volume [place] ([facility]) hematocrit 40.0 % 36.0-47.0 Hematocrit [place] ([facility]) mean corpuscular hemoglobin 30.8 pg 27.0-33.0 Mean Cor puscular Hemoglobin [place] ([facility]) mean corpuscular HGB conc 33.0 g/dL 32.0-36.5 Mean Corpu scular HGB Conc [place] ([facility]) red cell distribution width 12.7 % 11.5-14.5 Red Cell Distribution Width [place] ([facility]) platelet count, automated 296 10 150-450 Platelet C ount, Automated [place] ([facility]) neutrophils % 63.4 % 36.0-66.0 Neutrophils % [place] ( [facility]) lymph % 28.4 % 24.0-44.0 Lymph % [place] ([facility]) mono % 7.3 % 2.0-8.0 [place] % [place] ([facility]) eos % 0.2 % 0.0-3.0 Eos % [place] ([facility]) immature granulocyte % 0.2 % 0-3.0 Immature Gran ulocyte % [place] ([facility]) baso % 0.5 % 0.0-1.0 Baso % [place] ([facility]) nucleated red blood cell % 0.0 % 0-0 Nucleated Red Blood Cell % [place] ([facility]) neutrophils # 5.5 10 1.5-8.5 Neutrophils # [place] ( [facility]) mono # 0.6 10 0.0-0.8 [place] # [place] ([facility]) lymph # 2.5 10 1.5-5.0 Lymph # [place] ([facility]) eos # 0.0 10 0.0-0.5 Eos # [place] ([facility]) baso # 0.0 10 0.0-0.2 Baso # [place] ([facility]) ID Date Data Source [id number] 04/12/2021 11:31:00 AM EDT [facility]) Name Value Range Interpretation Code Description Data Arlen rce(s) Supporting Document(s) ID Date Data Source [id number] 04/12/2021 11:31:00 AM EDT [facility]) Name Value Range Interpretation Code Description Data Arlen rce(s) Supporting Document(s) ID Date Data Source [id number] 04/12/2021 11:31:00 AM EDT [facility]) Name Value Range Interpretation Code Description Data Arlen rce(s) Supporting Document(s) ID Date Data Source [id number] 04/12/2021 11:31:00 AM EDT [facility] Name Value Range Interpretation Code Description Data Arlen rce(s) Supporting Document(s) SARS-CoV-2 (COVID 19) NEGATIVE - SARS-CoV-2 (COVID19) [facility] This lab was ordered by [facility] a nd reported by [facility]. ID Date Data Source [id number] 04/12/2021 11:31:00 AM EDT [place] ([facility]) Name Value Range Interpretation Code Description Data Arlen rce(s) Supporting Document(s) ID Date Data Source [id number] 04/12/2021 11:24:00 AM EDT [place] ([facility]) Name Value Range Interpretation Code Description Data Arlen rce(s) Supporting Document(s) mark strep A negative negative Mark Strep a [facility]) ID Date Data Source [id number] 04/12/2021 11:24:00 AM EDT [facility]) Name Value Range Interpretation Code Description Data Arlen rce(s) Supporting Document(s) mark strep A negative negative Mark Strep a [facility]) ID Date Data Source [id number] 04/12/2021 11:24:00 AM EDT [facility]) Name Value Range Interpretation Code Description Data Arlen rce(s) Supporting Document(s) mark strep A negative negative Mark Strep a [facility]) ID Date Data Source [id number] 04/12/2021 11:24:00 AM EDT [facility]) Name Value Range Interpretation Code Description Data Arlen rce(s) Supporting Document(s) mark strep A negative negative Mark Strep a [facility]) ID Date Data Source [id number] 04/05/2021 12:00:00 AM EDT [facility] Name Value Range Interpretation Code Description Data Arlen rce(s) Supporting Document(s) SARS-CoV2 Rapid Antigen Negative [facility] This lab was ordered by [facility] and reported by [facility]. ID Date Data Source [id number] 03/14/2021 12:00:00 AM EDT [facility] Name Value Range Interpretation Code Description Data Arlen rce(s) Supporting Document(s) SARS-CoV2 Rapid Antigen Negative [facility] This lab was reported by [facility]. ID Date Data Source [id number] 03/01/2021 11:19:00 AM EDT [facility] ([facility]) Name Value Range Interpretation Code Description Data Arlen rce(s) Supporting Document(s) Group A Strep Culture Laboratory test result [facility] ([facility], [facility]) FULL REPORT IN LAB NOTES ([facility] and [facility] ). NEGATIVE FOR STREP PYOGENES (GROUP A) ID Date Data Source [id number] 03/01/2021 12:00:00 AM EDT [facility] Name Value Range Interpretation Code Description Data Arlen rce(s) Supporting Document(s) SARS-CoV2 Rapid Antigen Negative [facility] This lab was ordered by [facility] and reported by [facility]. ID Date Data Source [id number] 01/22/2021 01:00:00 PM EST [place] ([facility]) Name Value Range Interpretation Code Description Data Arlen rce(s) Supporting Document(s) D-dimer quant 412.19 NG/mL <500 D-dimer Quant [facility]) ID Date Data Source [id number] 01/22/2021 01:00:00 PM EST [place] ([facility]) Name Value Range Interpretation Code Description Data Arlen rce(s) Supporting Document(s) partial thromboplastin time 29.5 seconds 24.2-38.5 Partial Thromboplastin Time [facility]) ID Date Data Source [id number] 01/22/2021 01:00:00 [facility] Name Value Range Interpretation Code Description Data Arlen rce(s) Supporting Document(s) prothrombin time 13.1 seconds 12.5-14.3 Prothrombin Time [place] ([facility]) INR Inr [place] ([facility]) ID Date Data Source [id number] 01/22/2021 01:00:00 PM EST [place] ([facility]) Name Value Range Interpretation Code Description Data Arlen rce(s) Supporting Document(s) D-dimer quant 412.19 NG/mL <500 D-dimer Quant [place] ([facility]) ID Date Data Source [id number] 01/22/2021 01:00:00 PM EST [place] ([facility]) Name Value Range Interpretation Code Description Data Arlen rce(s) Supporting Document(s) partial thromboplastin time 29.5 seconds 24.2-38.5 Partial Thromboplastin Time [place] ([facility]) ID Date Data Source [id number] 01/22/2021 01:00:00 PM EST [place] ([facility] [place] Name Value Range Interpretation Code Description Data Arlen rce(s) Supporting Document(s) prothrombin time 13.1 seconds 12.5-14.3 Prothrombin Time [place] ([facility]) INR Inr [place] ([facility]) ID Date Data Source [id number] 01/22/2021 01:00:00 PM EST [place] ([facility]) Name Value Range Interpretation Code Description Data Arlen rce(s) Supporting Document(s) D-dimer quant 412.19 NG/mL <500 D-dimer Quant [place] ([facility]) ID Date Data Source [id number] 01/22/2021 01:00:00 PM EST [place] ([facility]) Name Value Range Interpretation Code Description Data Arlen rce(s) Supporting Document(s) partial thromboplastin time 29.5 seconds 24.2-38.5 Partial Thromboplastin Time [place] ([facility]) ID Date Data Source [id number] 01/22/2021 01:00:00 PM EST [place] ([facility]) Name Value Range Interpretation Code Description Data Arlen rce(s) Supporting Document(s) prothrombin time 13.1 seconds 12.5-14.3 Prothrombin Time [place] ([facility]) INR Inr [place] ([facility]) ID Date Data Source [id number] 01/22/2021 01:00:00 PM EST [place] ([facility]) Name Value Range Interpretation Code Description Data Arlen rce(s) Supporting Document(s) D-dimer quant 412.19 NG/mL <500 [facility] ID Date Data Source [id number] 01/22/2021 01:00:00 PM EST [place] ([facility]) Name Value Range Interpretation Code Description Data Arlen rce(s) Supporting Document(s) partial thromboplastin time 29.5 seconds 24.2-38.5 Partial Thromboplastin Time [place] ([facility]) ID Date Data Source [id number] 01/22/2021 01:00:00 PM EST [place] ([facility]) Name Value Range Interpretation Code Description Data Arlen rce(s) Supporting Document(s) INR Inr [place] ([facility]) prothrombin time 13.1 seconds 12.5-14.3 Prothrombin Time [place] ([facility]) ID Date Data Source [id number] 01/22/2021 01:00:00 PM EST [place] ([facility]) Name Value Range Interpretation Code Description Data Arlen rce(s) Supporting Document(s) D-dimer quant 412.19 NG/mL <500 D-dimer Quant [place] [facility]) ID Date Data Source [id number] 01/22/2021 01:00:00 PM EST [place] ([facility]) Name Value Range Interpretation Code Description Data Arlen rce(s) Supporting Document(s) partial thromboplastin time 29.5 seconds 24.2-38.5 Partial Thromboplastin Time [place] ([facility]) ID Date Data Source [id number] 01/22/2021 01:00:00 PM EST [place] ([facility]) Name Value Range Interpretation Code Description Data Arlen rce(s) Supporting Document(s) INR Inr [place] ([facility]) prothrombin time 13.1 seconds 12.5-14.3 Prothrombin Time [place] ([facility]) ID Date Data Source [id number] 01/22/2021 12:45:00 PM EST [place] ([facility]) Name Value Range Interpretation Code Description Data Arlen rce(s) Supporting Document(s) istat B-HCG < 5.0 Istat B-HCG [place] ([facility]) ID Date Data Source [id number] 01/22/2021 12:45:00 PM EST [place] ([facility]) Name Value Range Interpretation Code Description Data Arlen rce(s) Supporting Document(s) istat B-HCG < 5.0 Istat B-HCG [place] ([facility]) ID Date Data Source [id number] 01/22/2021 12:45:00 PM EST [place] ([facility]) Name Value Range Interpretation Code Description Data Arlen rce(s) Supporting Document(s) istat B-HCG < 5.0 Istat B-HCG [place] ([facility]) ID Date Data Source [id number] 01/22/2021 12:45:00 PM EST [place] ([facility]) Name Value Range Interpretation Code Description Data Arlen rce(s) Supporting Document(s) istat B-HCG < 5.0 Istat B-HCG [place] ([facility]) ID Date Data Source [id number] 01/22/2021 12:45:00 PM EST [place] ([facility]) Name Value Range Interpretation Code Description Data Arlen rce(s) Supporting Document(s) istat B-HCG < 5.0 Istat B-HCG [place] ([facility]) ID Date Data Source [id number] 01/22/2021 12:42:00 PM EST [place] ([facility]) Name Value Range Interpretation Code Description Data Arlen rce(s) Supporting Document(s) istat HCT 41.0 % 38.0-51.0 Istat HCT [place] ([facility]) istat glucose 83 mg/dL 70-105 Istat Glucose [place] ( [facility]) istat sodium 138 mEq/L 136-145 Istat Sodium [place] ([facility]) istat potassium 4.6 mEq/L 3.5-5.1 Istat Potassium ATHE NA ([facility]) istat Ca++ 4.9 mg/dL 4.5-5.3 Istat Ca++ [place] ([facility]) istat chloride 99 mEq/L 98-109 Istat Chloride [place] ([facility]) istat CO2 31.0 mm/L 23.0-27.0 Above high normal Istat CO2 [place] ([facility]) istat BUN 9 mg/dL 8-26 Istat BUN [place] ([facility]) istat creatinine 0.8 mg/dL 0.6-1.3 Istat Creatinine AT [facility]) ID Date Data Source [id number] 01/22/2021 12:42:00 PM EST [place] ([facility]) Name Value Range Interpretation Code Description Data Arlen rce(s) Supporting Document(s) istat HCT 41.0 % 38.0-51.0 Istat HCT [place] ([facility]) istat glucose 83 mg/dL 70-105 Istat Glucose [place] ( [facility]) istat sodium 138 mEq/L 136-145 Istat Sodium [place] ([facility]) istat Ca++ 4.9 mg/dL 4.5-5.3 Istat Ca++ [place] ([facility]) istat potassium 4.6 mEq/L 3.5-5.1 Istat Potassium AT[place] NA ([facility]) istat chloride 99 mEq/L 98-109 Istat Chloride [place] ([facility]) istat CO2 31.0 mm/L 23.0-27.0 Above high normal Istat CO2 [place] ([facility]) istat creatinine 0.8 mg/dL 0.6-1.3 Istat Creatinine AT [place] ([facility]) istat BUN 9 mg/dL 8-26 Istat BUN [place] ([facility]) ID Date Data Source [id number] 01/22/2021 12:42:00 PM EST [place] ([facility]) Name Value Range Interpretation Code Description Data Arlen rce(s) Supporting Document(s) istat sodium 138 mEq/L 136-145 Istat Sodium [place] ([facility]) istat HCT 41.0 % 38.0-51.0 Istat HCT [place] ([facility]) istat glucose 83 mg/dL 70-105 Istat Glucose [place] ( [facility]) istat Ca++ 4.9 mg/dL 4.5-5.3 Istat Ca++ [place] ([facility]) istat potassium 4.6 mEq/L 3.5-5.1 Istat Potassium [place] ([facility]) istat chloride 99 mEq/L 98-109 Istat Chloride [place] ([facility]) istat CO2 31.0 mm/L 23.0-27.0 Above high normal Istat CO2 [place] ([facility]) istat BUN 9 mg/dL 8-26 Istat BUN [place] ([facility]) istat creatinine 0.8 mg/dL 0.6-1.3 Istat Creatinine AT [facility]) ID Date Data Source [id number] 01/22/2021 12:42:00 PM EST [place] ([facility]) Name Value Range Interpretation Code Description Data Arlen rce(s) Supporting Document(s) istat HCT 41.0 % 38.0-51.0 Istat HCT [place] ([facility]) istat glucose 83 mg/dL 70-105 Istat Glucose [place] ( [facility]) istat sodium 138 mEq/L 136-145 Istat Sodium [place] ([facility]) istat Ca++ 4.9 mg/dL 4.5-5.3 Istat Ca++ [place] ([facility]) istat potassium 4.6 mEq/L 3.5-5.1 Istat Potassium [place] ([facility]) istat chloride 99 mEq/L 98-109 Istat Chloride [place] ([facility]) istat CO2 31.0 mm/L 23.0-27.0 Above high normal Istat CO2 [place] ([facility]) istat creatinine 0.8 mg/dL 0.6-1.3 Istat Creatinine AT [facility] ([facility]) istat BUN 9 mg/dL 8-26 Istat BUN [place] ([facility]) ID Date Data Source [id number] 01/22/2021 12:42:00 PM EST [place] ([facility]) Name Value Range Interpretation Code Description Data Arlen rce(s) Supporting Document(s) istat glucose 83 mg/dL 70-105 Istat Glucose [place] ( [facility]) istat HCT 41.0 % 38.0-51.0 Istat HCT [place] ([facility]) istat sodium 138 mEq/L 136-145 Istat Sodium [place] ([facility]) istat Ca++ 4.9 mg/dL 4.5-5.3 Istat Ca++ [place] ([facility]) istat potassium 4.6 mEq/L 3.5-5.1 Istat Potassium AT[place] ([facility]) istat CO2 31.0 mm/L 23.0-27.0 Above high normal Istat CO2 [place] ([facility]) istat chloride 99 mEq/L 98-109 Istat Chloride [place] ([facility]) istat BUN 9 mg/dL 8-26 Istat BUN [place] ([facility]) istat creatinine 0.8 mg/dL 0.6-1.3 Istat Creatinine AT [place] ([facility]) ID Date Data Source [id number] 01/22/2021 12:23:00 PM EST [facility]) Name Value Range Interpretation Code Description Data Arlen rce(s) Supporting Document(s) mark covid antigen negative negative Mark Covid Anti gen [place] ([facility]) ID Date Data Source [id number] 01/22/2021 12:23:00 PM EST [place] ([facility]) Name Value Range Interpretation Code Description Data Arlen rce(s) Supporting Document(s) mark covid antigen negative negative Mark Covid Anti gen [place] ([facility]) ID Date Data Source [id number] 01/22/2021 12:23:00 PM EST [facility]) Name Value Range Interpretation Code Description Data Arlen rce(s) Supporting Document(s) mark covid antigen negative negative Mark Covid Anti gen [place] ([facility]) ID Date Data Source [id number] 01/22/2021 12:23:00 PM EST [place] ([facility]) Name Value Range Interpretation Code Description Data Arlen rce(s) Supporting Document(s) mark covid antigen negative negative Mark Covid Anti gen [place] ([facility]) ID Date Data Source [id number] 01/22/2021 12:23:00 PM EST [facility] Name Value Range Interpretation Code Description Data Arlen rce(s) Supporting Document(s) SARS COVID ANTIGEN NEGATIVE [facility] This lab was ordered by TAMEKA calderon nd reported by [facility]. ID Date Data Source [id number] 01/22/2021 12:23:00 PM EST [place] ([facility]) Name Value Range Interpretation Code Description Data Arlen rce(s) Supporting Document(s) mark covid antigen negative negative Mark Covid Anti gen [place] ([facility]) ID Date Data Source [id number] 01/22/2021 11:29:00 AM EST [place] ([facility]) Name Value Range Interpretation Code Description Data Arlen rce(s) Supporting Document(s) C reactive protein quantitativ 0.52 mg/dL 0.00-0.30 Above high normal C Reactive Protein Quantitativ [place] ([facility]) ID Date Data Source [id number] 01/22/2021 11:29:00 AM EST [place] ([facility]) Name Value Range Interpretation Code Description Data Arlen rce(s) Supporting Document(s) mono scrn negative negative Stanley Scrn [place] ([facility]) ID Date Data Source [id number] 01/22/2021 11:29:00 AM EST [place] ([facility]) Name Value Range Interpretation Code Description Data Arlen rce(s) Supporting Document(s) blood urea nitrogen 10 mg/dL 7-18 Blood Urea Nitro gen [place] ([facility]) glucose, fasting 80 mg/dL 70-100 Glucose, Fasting AT [facility] ([facility]) glomerular filtration rate > 60.0 >60 Glomerula r Filtration Rate [place] ([facility]) creatinine for GFR 0.85 mg/dL 0.55-1.30 Creatinine for GF R [place] ([facility]) sodium level 137 mEq/L 136-145 Sodium Level [place] ([facility]) chloride level 103 mEq/L 98-107 Chloride Level [place] ([facility]) potassium serum 4.7 mEq/L 3.5-5.1 Potassium [facility] carbon dioxide level 30 mEq/L 21-32 Carbon Dioxide Level [place] ([facility]) calcium level 9.1 mg/dL 8.5-10.1 Calcium Level [place] ( [facility]) anion gap 4 mEq/L 8-16 Below low normal Anion Gap [place] ( [facility]) ID Date Data Source [id number] 01/22/2021 11:29:00 AM EST [place] ([facility]) Name Value Range Interpretation Code Description Data Arlen rce(s) Supporting Document(s) AST/SGOT 16 U/L 7-37 AST/SGOT [place] ([facility]) alkaline phosphatase 89 U/L 45-117 Alkaline Phosph atase [place] ([facility]) ALT/SGPT 18 U/L 12-78 ALT/SGPT [place] ([facility]) total protein 8.0 gm/dL 6.4-8.2 Total Protein [place] ( [facility]) bilirubin,total 0.6 mg/dL 0.2-1.0 [facility] bilirubin,direct 0.2 mg/dL 0.0-0.2 Bilirubin,direct AT [facility] ([facility]) albumin/globulin ratio 1.2-2.2 Below low normal Albumin /globulin Ratio [place] ([facility]) albumin 3.9 gm/dL 3.2-5.2 Albumin [place] ([facility]) ID Date Data Source [id number] 01/22/2021 11:29:00 AM EST [place] ([facility]) Name Value Range Interpretation Code Description Data Arlen rce(s) Supporting Document(s) erythrocyte sedimentation rate 23 mm/HR 0-20 Above high normal Erythrocyte Sedimentation Rate [place] ([facility]) ID Date Data Source [id number] 01/22/2021 11:29:00 AM EST [place] ([facility]) Name Value Range Interpretation Code Description Data Arlen rce(s) Supporting Document(s) white blood count 6.9 10 4.0-10.0 White Blood Count [place] ([facility]) red blood count 4.43 10 4.00-5.40 Red Blood Count [facility] ([facility]) hemoglobin 13.3 g/dL 12.0-15.5 Hemoglobin [place] ([facility]) mean corpuscular volume 92.3 fL 80.0-96.0 Mean Corpusc ular Volume [place] ([facility]) hematocrit 40.9 % 36.0-47.0 Hematocrit [place] ([facility]) mean corpuscular hemoglobin 30.0 pg 27.0-33.0 Mean Cor puscular Hemoglobin [place] ([facility]) mean corpuscular HGB conc 32.5 g/dL 32.0-36.5 Mean Corpu scular HGB Conc [place] ([facility]) red cell distribution width 12.6 % 11.5-14.5 Red Cell Distribution Width [place] ([facility]) platelet count, automated 299 10 150-450 Platelet C ount, Automated [place] ([facility]) neutrophils % 52.0 % 36.0-66.0 Neutrophils % [place] ( [facility]) lymph % 38.0 % 24.0-44.0 Lymph % [place] ([facility]) mono % 7.8 % 2.0-8.0 Stanley % [place] ([facility]) eos % 1.5 % 0.0-3.0 Eos % [place] ([facility]) baso % 0.7 % 0.0-1.0 Baso % [place] ([facility]) nucleated red blood cell % 0.0 % 0-0 Nucleated Red Blood Cell % [place] ([facility]) immature granulocyte % 0.0 % 0-3.0 Immature Gran ulocyte % [place] ([facility]) neutrophils # 3.6 10 1.5-8.5 Neutrophils # [place] ( [facility]) mono # 0.5 10 0.0-0.8 Stanley # [place] ([facility]) lymph # 2.6 10 1.5-5.0 Lymph # [place] ([facility]) eos # 0.1 10 0.0-0.5 Eos # [place] ([facility]) baso # 0.1 10 0.0-0.2 Baso # [place] ([facility]) ID Date Data Source [id number] 01/22/2021 11:29:00 AM EST [place] ([facility]) Name Value Range Interpretation Code Description Data Arlen rce(s) Supporting Document(s) C reactive protein quantitativ 0.52 mg/dL 0.00-0.30 Above high normal C Reactive Protein Quantitativ [place] ([facility]) ID Date Data Source [id number] 01/22/2021 11:29:00 AM EST [place] ([facility]) Name Value Range Interpretation Code Description Data Arlen rce(s) Supporting Document(s) mono scrn negative negative Stanley Scrn [place] ([facility]) ID Date Data Source [id number] 01/22/2021 11:29:00 AM EST [place] ([facility]) Name Value Range Interpretation Code Description Data Arlen rce(s) Supporting Document(s) glucose, fasting 80 mg/dL 70-100 Glucose, Fasting AT [facility] ([facility]) blood urea nitrogen 10 mg/dL 7-18 Blood Urea Nitro gen [place] ([facility]) creatinine for GFR 0.85 mg/dL 0.55-1.30 Creatinine for GF R [place] ([facility]) glomerular filtration rate > 60.0 >60 Glomerula r Filtration Rate [place] ([facility]) sodium level 137 mEq/L 136-145 Sodium Level [place] (No [facility]) potassium serum 4.7 mEq/L 3.5-5.1 Potassium Serum ATH NA ([facility]) chloride level 103 mEq/L 98-107 Chloride Level [place] ([facility]) carbon dioxide level 30 mEq/L 21-32 Carbon Dioxide Level [place] ([facility]) anion gap 4 mEq/L 8-16 Below low normal Anion Gap [place] ( [facility]) calcium level 9.1 mg/dL 8.5-10.1 Calcium Level [place] ( [facility]) ID Date Data Source [id number] 01/22/2021 11:29:00 AM EST [facility]) Name Value Range Interpretation Code Description Data Arlen rce(s) Supporting Document(s) AST/SGOT 16 U/L 7-37 AST/SGOT [place] ([facility]) ALT/SGPT 18 U/L 12-78 ALT/SGPT [place] ([facility]) alkaline phosphatase 89 U/L 45-117 Alkaline Phosph atase [place] ([facility]) bilirubin,total 0.6 mg/dL 0.2-1.0 Bilirubin,[facility] bilirubin,direct 0.2 mg/dL 0.0-0.2 Bilirubin,direct AT [facility] ([facility]) albumin 3.9 gm/dL 3.2-5.2 Albumin [place] ([facility]) total protein 8.0 gm/dL 6.4-8.2 Total Protein [place] ( [facility]) albumin/globulin ratio 1.2-2.2 Below low normal Albumin /globulin Ratio [place] ([facility]) ID Date Data Source [id number] 01/22/2021 11:29:00 AM EST [place] ([facility]) Name Value Range Interpretation Code Description Data Arlen rce(s) Supporting Document(s) erythrocyte sedimentation rate 23 mm/HR 0-20 Above high normal Erythrocyte Sedimentation Rate [place] ([facility]) ID Date Data Source [id number] 01/22/2021 11:29:00 AM EST [place] ([facility]) Name Value Range Interpretation Code Description Data Arlen rce(s) Supporting Document(s) red blood count 4.43 10 4.00-5.40 Red Blood Count [facility]) white blood count 6.9 10 4.0-10.0 White Blood Count [place] ([facility]) mean corpuscular volume 92.3 fL 80.0-96.0 Mean Corpusc ular Volume [place] ([facility]) hematocrit 40.9 % 36.0-47.0 Hematocrit [place] ([facility]) hemoglobin 13.3 g/dL 12.0-15.5 Hemoglobin [place] ([facility]) mean corpuscular HGB conc 32.5 g/dL 32.0-36.5 Mean Corpu scular HGB Conc [place] ([facility]) mean corpuscular hemoglobin 30.0 pg 27.0-33.0 Mean Cor puscular Hemoglobin [place] ([facility]) red cell distribution width 12.6 % 11.5-14.5 Red Cell Distribution Width [place] ([facility]) platelet count, automated 299 10 150-450 Platelet C ount, Automated [place] ([facility]) neutrophils % 52.0 % 36.0-66.0 Neutrophils % [place] ( [facility]) lymph % 38.0 % 24.0-44.0 Lymph % [place] ([facility]) mono % 7.8 % 2.0-8.0 Stanley % [place] ([facility]) eos % 1.5 % 0.0-3.0 Eos % [place] ([facility]) immature granulocyte % 0.0 % 0-3.0 Immature Gran ulocyte % [place] ([facility]) baso % 0.7 % 0.0-1.0 Baso % [place] ([facility]) nucleated red blood cell % 0.0 % 0-0 Nucleated Red Blood Cell % [place] ([facility]) neutrophils # 3.6 10 1.5-8.5 Neutrophils # [place] ( [facility]) eos # 0.1 10 0.0-0.5 Eos # [place] ([facility]) mono # 0.5 10 0.0-0.8 Stanley # [place] ([facility]) lymph # 2.6 10 1.5-5.0 Lymph # [place] ([facility]) baso # 0.1 10 0.0-0.2 Baso # [place] ([facility]) ID Date Data Source [id number] 01/22/2021 11:29:00 AM EST [place] ([facility]) Name Value Range Interpretation Code Description Data Arlen rce(s) Supporting Document(s) C reactive protein quantitativ 0.52 mg/dL 0.00-0.30 Above high normal C Reactive Protein Quantitativ [place] ([facility]) ID Date Data Source [id number] 01/22/2021 11:29:00 AM EST [place] ([facility]) Name Value Range Interpretation Code Description Data Arlen rce(s) Supporting Document(s) mono scrn negative negative Stanley Scrn [place] ([facility]) ID Date Data Source [id number] 01/22/2021 11:29:00 AM EST [place] ([facility]) Name Value Range Interpretation Code Description Data Arlen rce(s) Supporting Document(s) blood urea nitrogen 10 mg/dL 7-18 Blood Urea Nitro gen [place] ([facility]) glucose, fasting 80 mg/dL 70-100 Glucose, Fasting AT [facility] ([facility]) glomerular filtration rate > 60.0 >60 Glomerula r Filtration Rate [place] ([facility]) creatinine for GFR 0.85 mg/dL 0.55-1.30 Creatinine for GF R [place] ([facility]) chloride level 103 mEq/L 98-107 Chloride Level [place] ([facility]) sodium level 137 mEq/L 136-145 Sodium Level [place] ([facility]) potassium serum 4.7 mEq/L 3.5-5.1 Potassium Serum [place] ([facility]) carbon dioxide level 30 mEq/L 21-32 Carbon Dioxide Level [place] ([facility]) anion gap 4 mEq/L 8-16 Below low normal Anion Gap [place] ( [facility]) calcium level 9.1 mg/dL 8.5-10.1 Calcium Level [place] ( [facility]) ID Date Data Source [id number] 01/22/2021 11:29:00 AM EST [place] ([facility]) Name Value Range Interpretation Code Description Data Arlen rce(s) Supporting Document(s) alkaline phosphatase 89 U/L 45-117 Alkaline Phosph atase [place] ([facility]) AST/SGOT 16 U/L 7-37 AST/SGOT [place] ([facility]) ALT/SGPT 18 U/L 12-78 ALT/SGPT [place] ([facility]) bilirubin,direct 0.2 mg/dL 0.0-0.2 Bilirubin,direct AT [facility] ([facility]) total protein 8.0 gm/dL 6.4-8.2 Total Protein [place] ( [facility]) bilirubin,total 0.6 mg/dL 0.2-1.0 Bilirubin,total [place] ([facility]) albumin 3.9 gm/dL 3.2-5.2 Albumin [place] ([facility]) albumin/globulin ratio 1.2-2.2 Below low normal Albumin /globulin Ratio [place] ([facility]) ID Date Data Source [id number] 01/22/2021 11:29:00 AM EST [place] ([facility]) Name Value Range Interpretation Code Description Data Arlen rce(s) Supporting Document(s) erythrocyte sedimentation rate 23 mm/HR 0-20 Above high normal Erythrocyte Sedimentation Rate [place] ([facility]) ID Date Data Source [id number] 01/22/2021 11:29:00 AM EST [place] ([facility]) Name Value Range Interpretation Code Description Data Arlen rce(s) Supporting Document(s) white blood count 6.9 10 4.0-10.0 White Blood Count [place] ([facility]) red blood count 4.43 10 4.00-5.40 Red Blood Count [place] ([facility]) hemoglobin 13.3 g/dL 12.0-15.5 Hemoglobin [place] ([facility]) mean corpuscular volume 92.3 fL 80.0-96.0 Mean Corpusc ular Volume [place] ([facility]) mean corpuscular hemoglobin 30.0 pg 27.0-33.0 Mean Cor puscular Hemoglobin [place] ([facility]) hematocrit 40.9 % 36.0-47.0 Hematocrit [place] ([facility]) red cell distribution width 12.6 % 11.5-14.5 Red Cell Distribution Width [place] ([facility]) mean corpuscular HGB conc 32.5 g/dL 32.0-36.5 Mean Corpu scular HGB Conc [place] ([facility]) neutrophils % 52.0 % 36.0-66.0 Neutrophils % [place] ( [facility]) platelet count, automated 299 10 150-450 Platelet C ount, Automated [place] ([facility]) lymph % 38.0 % 24.0-44.0 Lymph % [place] ([facility]) mono % 7.8 % 2.0-8.0 [place] % [place] ([facility]) eos % 1.5 % 0.0-3.0 Eos % [place] ([facility]) baso % 0.7 % 0.0-1.0 Baso % [place] ([facility]) nucleated red blood cell % 0.0 % 0-0 Nucleated Red Blood Cell % [place] ([facility]) immature granulocyte % 0.0 % 0-3.0 Immature Gran ulocyte % [place] ([facility]) lymph # 2.6 10 1.5-5.0 Lymph # [place] ([facility]) neutrophils # 3.6 10 1.5-8.5 Neutrophils # [place] ( [facility]) mono # 0.5 10 0.0-0.8 [place] # [place] ([facility]) baso # 0.1 10 0.0-0.2 Baso # [place] ([facility]) eos # 0.1 10 0.0-0.5 Eos # [place] ([facility]) ID Date Data Source [id number] 01/22/2021 11:29:00 AM EST [place] ([facility]) Name Value Range Interpretation Code Description Data Arlen rce(s) Supporting Document(s) C reactive protein quantitativ 0.52 mg/dL 0.00-0.30 Above high normal C Reactive Protein Quantitativ [place] ([facility]) ID Date Data Source [id number] 01/22/2021 11:29:00 AM EST [place] ([facility]) Name Value Range Interpretation Code Description Data Arlen rce(s) Supporting Document(s) mono scrn negative negative [place] Scrn [place] ([facility]) ID Date Data Source [id number] 01/22/2021 11:29:00 AM EST [place] ([facility]) Name Value Range Interpretation Code Description Data Arlen rce(s) Supporting Document(s) glucose, fasting 80 mg/dL 70-100 Glucose, Fasting AT [place] ([facility]) blood urea nitrogen 10 mg/dL 7-18 Blood Urea Nitro gen [place] ([facility]) creatinine for GFR 0.85 mg/dL 0.55-1.30 Creatinine for GF R [place] ([facility]) glomerular filtration rate > 60.0 >60 Glomerula r Filtration Rate [place] ([facility]) sodium level 137 mEq/L 136-145 Sodium Level [place] ([facility]) potassium serum 4.7 mEq/L 3.5-5.1 Potassium Serum [place] ([facility]) chloride level 103 mEq/L 98-107 Chloride Level [place] ([facility]) carbon dioxide level 30 mEq/L 21-32 Carbon Dioxide Level [place] ([facility]) anion gap 4 mEq/L 8-16 Below low normal Anion Gap [place] ( [facility]) calcium level 9.1 mg/dL 8.5-10.1 Calcium Level [place] ( [facility]) ID Date Data Source [id number] 01/22/2021 11:29:00 AM EST [place] ([facility]) Name Value Range Interpretation Code Description Data Arlen rce(s) Supporting Document(s) AST/SGOT 16 U/L 7-37 AST/SGOT [place] ([facility]) ALT/SGPT 18 U/L 12-78 ALT/SGPT [place] ([facility]) alkaline phosphatase 89 U/L 45-117 Alkaline Phosph atase [place] ([facility]) bilirubin,total 0.6 mg/dL 0.2-1.0 Bilirubin,total [place] ([facility]) total protein 8.0 gm/dL 6.4-8.2 Total Protein [place] ( [facility]) albumin 3.9 gm/dL 3.2-5.2 Albumin [place] ([facility]) bilirubin,direct 0.2 mg/dL 0.0-0.2 Bilirubin,direct AT [facility] ([facility]) albumin/globulin ratio 1.2-2.2 Below low normal Albumin /globulin Ratio [place] ([facility]) ID Date Data Source [id number] 01/22/2021 11:29:00 AM EST [place] ([facility]) Name Value Range Interpretation Code Description Data Arlen rce(s) Supporting Document(s) erythrocyte sedimentation rate 23 mm/HR 0-20 Above high normal Erythrocyte Sedimentation Rate [place] ([facility]) ID Date Data Source [id number] 01/22/2021 11:29:00 AM EST [place] ([facility]) Name Value Range Interpretation Code Description Data Arlen rce(s) Supporting Document(s) white blood count 6.9 10 4.0-10.0 White Blood Count [place] ([facility]) hemoglobin 13.3 g/dL 12.0-15.5 Hemoglobin [place] ([facility]) red blood count 4.43 10 4.00-5.40 Red Blood Count [place] ([facility]) mean corpuscular volume 92.3 fL 80.0-96.0 Mean Corpusc ular Volume [place] ([facility]) hematocrit 40.9 % 36.0-47.0 Hematocrit [place] ([facility]) mean corpuscular hemoglobin 30.0 pg 27.0-33.0 Mean Cor puscular Hemoglobin [place] ([facility]) red cell distribution width 12.6 % 11.5-14.5 Red Cell Distribution Width [place] ([facility]) mean corpuscular HGB conc 32.5 g/dL 32.0-36.5 Mean Corpu scular HGB Conc [place] ([facility]) neutrophils % 52.0 % 36.0-66.0 Neutrophils % [place] ( [facility]) platelet count, automated 299 10 150-450 Platelet C ount, Automated [place] ([facility]) lymph % 38.0 % 24.0-44.0 Lymph % [place] ([facility]) eos % 1.5 % 0.0-3.0 Eos % [place] ([facility]) mono % 7.8 % 2.0-8.0 [place] % [place] ([facility]) nucleated red blood cell % 0.0 % 0-0 Nucleated Red Blood Cell % [place] ([facility]) immature granulocyte % 0.0 % 0-3.0 Immature Gran ulocyte % [place] ([facility]) baso % 0.7 % 0.0-1.0 Baso % [place] ([facility]) neutrophils # 3.6 10 1.5-8.5 Neutrophils # [place] ( [facility]) lymph # 2.6 10 1.5-5.0 Lymph # [place] ([facility]) mono # 0.5 10 0.0-0.8 [place] # [place] ([facility]) baso # 0.1 10 0.0-0.2 Baso # [place] ([facility]) eos # 0.1 10 0.0-0.5 Eos # [place] ([facility]) ID Date Data Source [id number] 01/22/2021 11:29:00 AM EST [place] ([facility]) Name Value Range Interpretation Code Description Data Arlen rce(s) Supporting Document(s) C reactive protein quantitativ 0.52 mg/dL 0.00-0.30 Above high normal C Reactive Protein Quantitativ [place] ([facility]) ID Date Data Source [id number] 01/22/2021 11:29:00 AM EST [place] ([facility]) Name Value Range Interpretation Code Description Data Arlen rce(s) Supporting Document(s) mono scrn negative negative [place] Scrn [place] ([facility]) ID Date Data Source [id number] 01/22/2021 11:29:00 AM EST [place] ([facility]) Name Value Range Interpretation Code Description Data Arlen rce(s) Supporting Document(s) glucose, fasting 80 mg/dL 70-100 Glucose, Fasting AT [facility] ([facility]) blood urea nitrogen 10 mg/dL 7-18 Blood Urea Nitro gen [place] ([facility]) sodium level 137 mEq/L 136-145 Sodium Level [place] (No [facility]) creatinine for GFR 0.85 mg/dL 0.55-1.30 Creatinine for GF R [place] ([facility]) glomerular filtration rate > 60.0 >60 Glomerula r Filtration Rate [place] ([facility]) chloride level 103 mEq/L 98-107 Chloride Level [place] ([facility]) carbon dioxide level 30 mEq/L 21-32 Carbon Dioxide Level [place] ([facility]) potassium serum 4.7 mEq/L 3.5-5.1 Potassium Serum [place] ([facility]) anion gap 4 mEq/L 8-16 Below low normal Anion Gap [place] ( [facility]) calcium level 9.1 mg/dL 8.5-10.1 Calcium Level [place] ( [facility]) ID Date Data Source [id number] 01/22/2021 11:29:00 AM EST [place] ([facility]) Name Value Range Interpretation Code Description Data Arlen rce(s) Supporting Document(s) AST/SGOT 16 U/L 7-37 AST/SGOT [place] ([facility]) ALT/SGPT 18 U/L 12-78 ALT/SGPT [place] ([facility]) bilirubin,total 0.6 mg/dL 0.2-1.0 Bilirubin,total [place] ([facility]) alkaline phosphatase 89 U/L 45-117 Alkaline Phosph atase [place] ([facility]) total protein 8.0 gm/dL 6.4-8.2 Total Protein [place] ( [facility]) albumin 3.9 gm/dL 3.2-5.2 Albumin [place] ([facility]) bilirubin,direct 0.2 mg/dL 0.0-0.2 Bilirubin,direct AT [place]) albumin/globulin ratio 1.2-2.2 Below low normal Albumin /globulin Ratio [place] ([facility]) ID Date Data Source [id number] 01/22/2021 11:29:00 AM EST [place] ([facility]) Name Value Range Interpretation Code Description Data Arlen rce(s) Supporting Document(s) erythrocyte sedimentation rate 23 mm/HR 0-20 Above high normal Erythrocyte Sedimentation Rate [place] ([facility]) ID Date Data Source [id number] 01/22/2021 11:29:00 AM EST [place] ([facility]) Name Value Range Interpretation Code Description Data Arlen rce(s) Supporting Document(s) red blood count 4.43 10 4.00-5.40 Red Blood Count [place] ([facility]) white blood count 6.9 10 4.0-10.0 White Blood Count [place] ([facility]) hemoglobin 13.3 g/dL 12.0-15.5 Hemoglobin [place] ([facility]) hematocrit 40.9 % 36.0-47.0 Hematocrit [place] ([facility]) mean corpuscular HGB conc 32.5 g/dL 32.0-36.5 Mean Corpu scular HGB Conc [place] ([facility]) mean corpuscular hemoglobin 30.0 pg 27.0-33.0 Mean Cor puscular Hemoglobin [place] ([facility]) mean corpuscular volume 92.3 fL 80.0-96.0 Mean Corpusc ular Volume [place] ([facility]) red cell distribution width 12.6 % 11.5-14.5 Red Cell Distribution Width [place] ([facility]) platelet count, automated 299 10 150-450 Platelet C ount, Automated [place] ([facility]) neutrophils % 52.0 % 36.0-66.0 Neutrophils % [place] ( [facility]) mono % 7.8 % 2.0-8.0 [place] % [place] ([facility]) lymph % 38.0 % 24.0-44.0 Lymph % [place] ([facility]) eos % 1.5 % 0.0-3.0 Eos % [place] ([facility]) baso % 0.7 % 0.0-1.0 Baso % [place] ([facility]) neutrophils # 3.6 10 1.5-8.5 Neutrophils # [place] ( [facility]) immature granulocyte % 0.0 % 0-3.0 Immature Gran ulocyte % [place] ([facility]) nucleated red blood cell % 0.0 % 0-0 Nucleated Red Blood Cell % [place] ([facility]) mono # 0.5 10 0.0-0.8 [place] # [place] ([facility]) lymph # 2.6 10 1.5-5.0 Lymph # [place] ([facility]) eos # 0.1 10 0.0-0.5 Eos # [place] ([facility]) baso # 0.1 10 0.0-0.2 Baso # [place] ([facility]) ID Date Data Source [id number] 01/20/2021 04:08:00 PM EST [place] ([facility]) Name Value Range Interpretation Code Description Data Arlen rce(s) Supporting Document(s) CK-mb value mass 1.4 NG/mL <3.6 CK-mb Value Mass AT [facility]) mb/CK relative index < or =4 mb/CK Relative Index [place] ([facility]) CPK creatine phosphokinase 122 U/L 26-192 CPK Creat ine Phosphokinase [facility]) troponin I < 0.02 < 0.10 Troponin I [place] ([facility]) ID Date Data Source [id number] 01/20/2021 04:08:00 PM EST [place] ([facility]) Name Value Range Interpretation Code Description Data Arlen rce(s) Supporting Document(s) CPK creatine phosphokinase 122 U/L 26-192 CPK Creat ine Phosphokinase [place] ([facility]) mb/CK relative index < or =4 mb/CK Relative Index [place] ([facility]) CK-mb value mass 1.4 NG/mL <3.6 CK-mb Value Mass AT [facility]) troponin I < 0.02 < 0.10 Troponin I [place] ([facility]) ID Date Data Source [id number] 01/20/2021 04:08:00 PM EST [place] ([facility]) Name Value Range Interpretation Code Description Data Arlen rce(s) Supporting Document(s) CPK creatine phosphokinase 122 U/L 26-192 CPK Creat ine Phosphokinase [place] ([facility]) CK-mb value mass 1.4 NG/mL <3.6 CK-mb Value Mass AT [facility]) mb/CK relative index < or =4 mb/CK Relative Index [place] ([facility]) troponin I < 0.02 < 0.10 Troponin I [place] ([facility]) ID Date Data Source [id number] 01/20/2021 04:08:00 PM EST [place] ([facility]) Name Value Range Interpretation Code Description Data Arlen rce(s) Supporting Document(s) CK-mb value mass 1.4 NG/mL <3.6 CK-mb Value Mass AT [facility]) CPK creatine phosphokinase 122 U/L 26-192 CPK Creat ine Phosphokinase [place] ([facility]) mb/CK relative index < or =4 mb/CK Relative Index [place] ([facility]) troponin I < 0.02 < 0.10 Troponin I [place] ([facility]) ID Date Data Source [id number] 01/20/2021 04:08:00 PM EST [place] ([facility]) Name Value Range Interpretation Code Description Data Arlen rce(s) Supporting Document(s) mb/CK relative index < or =4 mb/CK Relative Index [place] ([facility]) CPK creatine phosphokinase 122 U/L 26-192 CPK Creat ine Phosphokinase [place] ([facility]) CK-mb value mass 1.4 NG/mL <3.6 CK-mb Value Mass AT [facility] ([facility]) troponin I < 0.02 < 0.10 Troponin I [place] ([facility]) ID Date Data Source [id number] 01/20/2021 03:26:00 PM EST [place] ([facility]) Name Value Range Interpretation Code Description Data Arlen rce(s) Supporting Document(s) appearance, urine clear clear Appearance, Urine [place] ([facility]) color, urine yellow yellow Color, Urine [place] ([facility]) pH,urine 5.0 units 5.0-9.0 pH,urine [place] ([facility]) protein, urine auto 1+ negative Above high normal Protein, Urine Auto [place] ([facility]) specific gravity urine auto 1.002-1.035 Specifi c [place] Urine Auto [place] ([facility]) glucose, urine (UA) auto negative negative Glucose, Ur ine (UA) Auto [place] ([facility]) urobilinogen, urine auto 0.2 mg/dL 0.0-2.0 Urobilinoge n, Urine Auto [place] ([facility]) ketone, urine auto negative negative Ketone, Urine Aut o [place] ([facility]) bilirubin, urine auto negative negative Bilirubin, Uri ne Auto [place] ([facility]) leukocyte esterase, urine auto 1+ negative Above high normal Leukocyte Esterase, Urine Auto [place] ([facility]) nitrite, urine auto negative negative Nitrite, Urine A uto [place] ([facility]) blood, urine blood negative negative Blood, Urine Bloo d [place] ([facility]) RBC, urine auto 2 /hpf 0-3 RBC, Urine Auto [place] ([facility]) WBC, urine auto 0 /hpf 0-3 WBC, Urine Auto [place] ([facility]) bacteria, urine auto negative negative Bacteria, Urine Auto [place] ([facility]) squamous epithelial cell ur AU 2 /hpf 0-6 Squam ous Epithelial Cell Ur AU [place] ([facility]) hyaline cast, urine auto 0 /lpf 0-1 Hyaline [place]rick t, Urine Auto [place] ([facility]) mucus, urine small negative Mucus, Urine [place] ([facility]) ID Date Data Source [id number] 01/20/2021 03:26:00 PM EST [place] ([facility]) Name Value Range Interpretation Code Description Data Arlen rce(s) Supporting Document(s) color, urine yellow yellow Color, Urine [place] ([facility]) appearance, urine clear clear Appearance, Urine [place] ([facility]) specific gravity urine auto 1.002-1.035 Specifi c [place] Urine Auto [place] ([facility]) pH,urine 5.0 units 5.0-9.0 pH,urine [place] ([facility]) glucose, urine (UA) auto negative negative Glucose, Ur ine (UA) Auto [place] ([facility]) ketone, urine auto negative negative Ketone, Urine Aut o [place] ([facility]) protein, urine auto 1+ negative Above high normal Protein, Urine Auto [place] ([facility]) urobilinogen, urine auto 0.2 mg/dL 0.0-2.0 Urobilinoge n, Urine Auto [place] ([facility]) bilirubin, urine auto negative negative Bilirubin, Uri ne Auto [place] ([facility]) nitrite, urine auto negative negative Nitrite, Urine A uto [place] ([facility]) leukocyte esterase, urine auto 1+ negative Above high normal Leukocyte Esterase, Urine Auto [place] ([facility]) WBC, urine auto 0 /hpf 0-3 WBC, Urine Auto [place] ([facility]) blood, urine blood negative negative Blood, Urine Bloo d [place] ([facility]) squamous epithelial cell ur AU 2 /hpf 0-6 Squam ous Epithelial Cell Ur AU [place] ([facility]) bacteria, urine auto negative negative Bacteria, Urine Auto [place] ([facility]) RBC, urine auto 2 /hpf 0-3 RBC, Urine Auto [place] ([facility]) hyaline cast, urine auto 0 /lpf 0-1 Hyaline Merrick t, Urine Auto [place] ([facility]) mucus, urine small negative Mucus, Urine [place] ([facility]) ID Date Data Source [id number] 01/20/2021 03:26:00 PM EST [place] ([facility]) Name Value Range Interpretation Code Description Data Arlen rce(s) Supporting Document(s) appearance, urine clear clear Appearance, Urine [place] ([facility]) pH,urine 5.0 units 5.0-9.0 pH,urine [place] ([facility]) color, urine yellow yellow Color, Urine [place] ([facility]) specific gravity urine auto 1.002-1.035 Specifi c [place] Urine Auto [place] ([facility]) protein, urine auto 1+ negative Above high normal Protein, Urine Auto [place] ([facility]) glucose, urine (UA) auto negative negative Glucose, Ur ine (UA) Auto [place] ([facility]) ketone, urine auto negative negative Ketone, Urine Aut o [place] ([facility]) bilirubin, urine auto negative negative Bilirubin, Uri ne Auto [place] ([facility]) urobilinogen, urine auto 0.2 mg/dL 0.0-2.0 Urobilinoge n, Urine Auto [place] ([facility]) nitrite, urine auto negative negative Nitrite, Urine A uto [place] ([facility]) leukocyte esterase, urine auto 1+ negative Above high normal Leukocyte Esterase, Urine Auto [place] ([facility]) blood, urine blood negative negative Blood, Urine Bloo d [place] ([facility]) bacteria, urine auto negative negative Bacteria, Urine Auto [place] ([facility]) RBC, urine auto 2 /hpf 0-3 RBC, Urine Auto [place] ([facility]) WBC, urine auto 0 /hpf 0-3 WBC, Urine Auto [place] ([facility]) hyaline cast, urine auto 0 /lpf 0-1 Hyaline Merrick t, Urine Auto [place] ([facility]) mucus, urine small negative Mucus, Urine [place] ([facility]) squamous epithelial cell ur AU 2 /hpf 0-6 Squam ous Epithelial Cell Ur AU [place] ([facility]) ID Date Data Source [id number] 01/20/2021 03:26:00 PM EST [place] ([facility]) Name Value Range Interpretation Code Description Data Arlen rce(s) Supporting Document(s) appearance, urine clear clear Appearance, Urine [place] ([facility]) pH,urine 5.0 units 5.0-9.0 pH,urine [place] ([facility]) color, urine yellow yellow Color, Urine [place] (No [facility]) specific gravity urine auto 1.002-1.035 Specifi c [place] Urine Auto [place] ([facility]) glucose, urine (UA) auto negative negative Glucose, Ur ine (UA) Auto [place] ([facility]) protein, urine auto 1+ negative Above high normal Protein, Urine Auto [place] ([facility]) urobilinogen, urine auto 0.2 mg/dL 0.0-2.0 Urobilinoge n, Urine Auto [place] ([facility]) ketone, urine auto negative negative Ketone, Urine Aut o [place] ([facility]) bilirubin, urine auto negative negative Bilirubin, Uri ne Auto [place] ([facility]) nitrite, urine auto negative negative Nitrite, Urine A uto [place] ([facility]) leukocyte esterase, urine auto 1+ negative Above high normal Leukocyte Esterase, Urine Auto [place] ([facility]) blood, urine blood negative negative Blood, Urine Bloo d [place] ([facility]) WBC, urine auto 0 /hpf 0-3 WBC, Urine Auto [place] ([facility]) RBC, urine auto 2 /hpf 0-3 RBC, Urine Auto [place] ([facility]) squamous epithelial cell ur AU 2 /hpf 0-6 Squam ous Epithelial Cell Ur AU [place] ([facility]) bacteria, urine auto negative negative Bacteria, Urine Auto [place] ([facility]) mucus, urine small negative Mucus, Urine [place] (No [facility]) hyaline cast, urine auto 0 /lpf 0-1 Hyaline Merrick t, Urine Auto [place] ([facility]) ID Date Data Source [id number] 01/20/2021 03:26:00 PM EST [place] ([facility]) Name Value Range Interpretation Code Description Data Arlen rce(s) Supporting Document(s) appearance, urine clear clear Appearance, Urine [place] ([facility]) color, urine yellow yellow Color, Urine [place] ([facility]) pH,urine 5.0 units 5.0-9.0 pH,urine [place] ([facility]) specific gravity urine auto 1.002-1.035 Specifi c [place] Urine Auto [place] ([facility]) protein, urine auto 1+ negative Above high normal Protein, Urine Auto [place] ([facility]) ketone, urine auto negative negative Ketone, Urine Aut o [place] ([facility]) glucose, urine (UA) auto negative negative Glucose, Ur ine (UA) Auto [place] ([facility]) bilirubin, urine auto negative negative Bilirubin, Uri ne Auto [place] ([facility]) leukocyte esterase, urine auto 1+ negative Above high normal Leukocyte Esterase, Urine Auto [place] ([facility]) urobilinogen, urine auto 0.2 mg/dL 0.0-2.0 Urobilinoge n, Urine Auto [place] ([facility]) nitrite, urine auto negative negative Nitrite, Urine A uto [place] ([facility]) RBC, urine auto 2 /hpf 0-3 RBC, Urine Auto [place] ([facility]) blood, urine blood negative negative Blood, Urine Bloo d [place] ([facility]) WBC, urine auto 0 /hpf 0-3 WBC, Urine Auto [place] ([facility]) bacteria, urine auto negative negative Bacteria, Urine Auto [place] ([facility]) squamous epithelial cell ur AU 2 /hpf 0-6 Squam ous Epithelial Cell Ur AU [place] ([facility]) mucus, urine small negative Mucus, Urine [place] (No [facility]) hyaline cast, urine auto 0 /lpf 0-1 Hyaline Merrick t, Urine Auto [place] ([facility]) ID Date Data Source [id number] 01/20/2021 01:30:00 PM EST [facility] Name Value Range Interpretation Code Description Data Arlen rce(s) Supporting Document(s) SARS-CoV-2 (COVID 19) NEGATIVE - SARS-CoV-2 (COVID19) [facility] This lab was ordered by [facility] a nd reported by [facility]. ID Date Data Source [id number] 12/25/2020 10:01:00 AM EST [place] ([facility]) Name Value Range Interpretation Code Description Data Arlen rce(s) Supporting Document(s) QRS Qrs [place] ([facility]) Rate & Rhythm Rate & Rhythm [place] ([facility]) QRS Duration QRS Duration [place] ([facility]) AR Interval AR Interval [place] ([facility]) QT Interval QT Interval [place] ([facility]) ID Date Data Source [id number] 12/25/2020 10:01:00 AM EST [place] ([facility]) Name Value Range Interpretation Code Description Data Arlen rce(s) Supporting Document(s) Rate & Rhythm Rate & Rhythm [place] ([facility]) QRS Qrs [place] ([facility]) AR Interval AR Interval [place] ([facility]) QRS Duration QRS Duration [place] ([facility]) QT Interval QT Interval [place] ([facility]) ID Date Data Source [id number] 12/25/2020 10:01:00 AM EST [place] ([facility]) Name Value Range Interpretation Code Description Data Arlen rce(s) Supporting Document(s) Rate & Rhythm Rate & Rhythm [place] ([facility]) QRS Qrs [place] ([facility]) QT Interval QT Interval [place] ([facility]) AR Interval AR Interval [place] ([facility]) QRS Duration QRS Duration [place] ([facility]) ID Date Data Source [id number] 12/25/2020 10:01:00 AM EST [place] ([facility]) Name Value Range Interpretation Code Description Data Arlen rce(s) Supporting Document(s) Rate & Rhythm Rate & Rhythm [place] ([facility]) QRS Qrs [place] ([facility]) AR Interval AR Interval [place] ([facility]) QT Interval QT Interval [place] ([facility]) QRS Duration QRS Duration [place] ([facility]) ID Date Data Source [id number] 12/25/2020 10:01:00 AM EST [place] ([facility]) Name Value Range Interpretation Code Description Data Arlen rce(s) Supporting Document(s) QRS Qrs [place] ([facility]) Rate & Rhythm Rate & Rhythm [place] ([facility]) AR Interval AR Interval [place] ([facility]) QT Interval QT Interval [place] ([facility]) QRS Duration QRS Duration [place] ([facility]) ID Date Data Source [id number] 12/25/2020 10:01:00 AM EST [place] ([facility]) Name Value Range Interpretation Code Description Data Arlen rce(s) Supporting Document(s) Rate & Rhythm Rate & Rhythm [place] ([facility]) QRS Qrs [place] ([facility]) QRS Duration QRS Duration [place] ([facility]) QT Interval QT Interval [place] ([facility]) AR Interval AR Interval [place] ([facility]) ID Date Data Source [id number] 12/25/2020 10:01:00 AM EST [place] ([facility]) Name Value Range Interpretation Code Description Data Arlen rce(s) Supporting Document(s) AR Interval AR Interval [place] ([facility]) QRS Qrs [place] ([facility]) Rate & Rhythm Rate & Rhythm [place] ([facility]) QRS Duration QRS Duration [place] ([facility]) QT Interval QT Interval [place] ([facility]) ID Date Data Source [id number] 12/22/2020 11:42:00 AM EST [place] ([facility]) Name Value Range Interpretation Code Description Data Arlen rce(s) Supporting Document(s) blood urea nitrogen 13 mg/dL 7-18 Blood Urea Nitro gen [place] ([facility]) glucose, fasting 91 mg/dL 70-100 Glucose, Fasting AT [facility] ([facility]) creatinine for GFR 0.91 mg/dL 0.55-1.30 Creatinine for GF R [place] ([facility]) glomerular filtration rate > 60.0 >60 Glomerula r Filtration Rate [place] ([facility]) chloride level 102 mEq/L 98-107 Chloride Level [place] ([facility]) sodium level 139 mEq/L 136-145 Sodium Level [place] ([facility]) potassium serum 3.9 mEq/L 3.5-5.1 Potassium Serum [place] NA ([facility]) ALT/SGPT 19 U/L 12-78 ALT/SGPT [place] ([facility]) anion gap 7 mEq/L 8-16 Below low normal Anion Gap [place] ( [facility]) calcium level 9.3 mg/dL 8.5-10.1 Calcium Level [place] ( [facility]) carbon dioxide level 30 mEq/L 21-32 Carbon Dioxide Level [place] ([facility]) AST/SGOT 10 U/L 7-37 AST/SGOT [place] ([facility]) total protein 7.6 gm/dL 6.4-8.2 Total Protein [place] ( [facility]) albumin 3.9 gm/dL 3.2-5.2 Albumin [place] ([facility]) albumin/globulin ratio 1.2-2.2 Below low normal Albumin /globulin Ratio [place] ([facility]) bilirubin,total 0.6 mg/dL 0.2-1.0 Bilirubin,total [place] ([facility]) alkaline phosphatase 73 U/L 45-117 Alkaline Phosph atase [place] ([facility]) ID Date Data Source [id number] 12/22/2020 11:42:00 AM EST [place] ([facility]) Name Value Range Interpretation Code Description Data Arlen rce(s) Supporting Document(s) white blood count 7.0 10 4.0-10.0 White Blood Count [place] ([facility]) red blood count 4.40 10 4.00-5.40 Red Blood Count [place] ([facility]) hemoglobin 13.2 g/dL 12.0-15.5 Hemoglobin [place] ([facility]) hematocrit 40.3 % 36.0-47.0 Hematocrit [place] ([facility]) mean corpuscular volume 91.6 fL 80.0-96.0 Mean Corpusc ular Volume [place] ([facility]) mean corpuscular HGB conc 32.8 g/dL 32.0-36.5 Mean Corpu scular HGB Conc [place] ([facility]) red cell distribution width 13.2 % 11.5-14.5 Red Cell Distribution Width [place] ([facility]) mean corpuscular hemoglobin 30.0 pg 27.0-33.0 Mean Cor puscular Hemoglobin [place] ([facility]) platelet count, automated 319 10 150-450 Platelet C ount, Automated [place] ([facility]) lymph % 43.2 % 24.0-44.0 Lymph % [place] ([facility]) neutrophils % 45.4 % 36.0-66.0 Neutrophils % [place] ( [facility]) mono % 9.3 % 0.0-5.0 Above high normal [place] % [place] ([facility]) nucleated red blood cell % 0.0 % 0-0 Nucleated Red Blood Cell % [place] ([facility]) immature granulocyte % 0.3 % 0-3.0 Immature Gran ulocyte % [place] ([facility]) eos % 1.4 % 0.0-3.0 Eos % [place] ([facility]) baso % 0.4 % 0.0-1.0 Baso % [place] ([facility]) mono # 0.7 10 0.0-0.8 [place] # [place] ([facility]) lymph # 3.0 10 1.5-5.0 Lymph # [place] ([facility]) eos # 0.1 10 0.0-0.5 Eos # [place] ([facility]) neutrophils # 3.2 10 1.5-8.5 Neutrophils # [place] ( [facility]) baso # 0.0 10 0.0-0.2 Baso # [place] ([facility]) ID Date Data Source [id number] 12/22/2020 11:42:00 AM EST [place] ([facility]) Name Value Range Interpretation Code Description Data Arlen rce(s) Supporting Document(s) HCG, serum qualitative negative negative HCG, Serum Qu alitative [place] ([facility]) ID Date Data Source [id number] 12/22/2020 11:42:00 AM EST [place] ([facility]) Name Value Range Interpretation Code Description Data Arlen rce(s) Supporting Document(s) total 25(oh) vitamin D 30.2 NG/mL 30.0-100.0 Total 25(Oh) Vitamin D [place] ([facility]) ID Date Data Source [id number] 12/22/2020 11:42:00 AM EST [place] ([facility]) Name Value Range Interpretation Code Description Data Arlen rce(s) Supporting Document(s) thyroid stimulating hormone 1.180 uIU/mL 0.358-3.740 Thyroid Stimulating Hormone [place] ([facility]) free T4 0.73 NG/dL 0.76-1.46 Below low normal Free T4 [place] ( [facility]) ID Date Data Source [id number] 12/22/2020 11:42:00 AM EST [place] ([facility]) Name Value Range Interpretation Code Description Data Arlen rce(s) Supporting Document(s) iron (fe) 84 ug/dL 50-170 Iron (Fe) [place] ([facility]) total iron binding capacity 419 ug/dL 250-450 Total Ir on Binding Capacity [place] ([facility]) percent saturation 20.0 % 13.2-45.0 Percent Saturatio n [place] ([facility]) ID Date Data Source [id number] 12/22/2020 11:42:00 AM EST [place] ([facility]) Name Value Range Interpretation Code Description Data Arlen rce(s) Supporting Document(s) glucose, fasting 91 mg/dL 70-100 Glucose, Fasting AT [facility]) blood urea nitrogen 13 mg/dL 7-18 Blood Urea Nitro gen [place] ([facility]) creatinine for GFR 0.91 mg/dL 0.55-1.30 Creatinine for GF R [place] ([facility]) glomerular filtration rate > 60.0 >60 Glomerula r Filtration Rate [place] ([facility]) chloride level 102 mEq/L 98-107 Chloride Level [place] ([facility]) sodium level 139 mEq/L 136-145 Sodium Level [place] ([facility]) potassium serum 3.9 mEq/L 3.5-5.1 Potassium Serum [place] NA ([facility]) AST/SGOT 10 U/L 7-37 AST/SGOT [place] ([facility]) carbon dioxide level 30 mEq/L 21-32 Carbon Dioxide Level [place] ([facility]) anion gap 7 mEq/L 8-16 Below low normal Anion Gap [place] ( [facility]) calcium level 9.3 mg/dL 8.5-10.1 Calcium Level [place] ( [facility]) ALT/SGPT 19 U/L 12-78 ALT/SGPT [place] ([facility]) bilirubin,total 0.6 mg/dL 0.2-1.0 Bilirubin,total ATHE [facility]) albumin 3.9 gm/dL 3.2-5.2 Albumin [place] ([facility]) total protein 7.6 gm/dL 6.4-8.2 Total Protein [place] ( [facility]) alkaline phosphatase 73 U/L 45-117 Alkaline Phosph atase [place] ([facility]) albumin/globulin ratio 1.2-2.2 Below low normal Albumin /globulin Ratio [place] ([facility]) ID Date Data Source [id number] 12/22/2020 11:42:00 AM EST [place] ([facility]) Name Value Range Interpretation Code Description Data Arlen rce(s) Supporting Document(s) white blood count 7.0 10 4.0-10.0 White Blood Count [place] ([facility]) red blood count 4.40 10 4.00-5.40 Red Blood Count [place] ([facility]) hemoglobin 13.2 g/dL 12.0-15.5 Hemoglobin [place] ([facility]) mean corpuscular volume 91.6 fL 80.0-96.0 Mean Corpusc ular Volume [place] ([facility]) mean corpuscular hemoglobin 30.0 pg 27.0-33.0 Mean Cor puscular Hemoglobin [place] ([facility]) hematocrit 40.3 % 36.0-47.0 Hematocrit [place] ([facility]) red cell distribution width 13.2 % 11.5-14.5 Red Cell Distribution Width [place] ([facility]) mean corpuscular HGB conc 32.8 g/dL 32.0-36.5 Mean Corpu scular HGB Conc [place] ([facility]) lymph % 43.2 % 24.0-44.0 Lymph % [place] ([facility]) neutrophils % 45.4 % 36.0-66.0 Neutrophils % [place] ( [facility]) mono % 9.3 % 0.0-5.0 Above high normal [place] % [place] ([facility]) platelet count, automated 319 10 150-450 Platelet C ount, Automated [place] ([facility]) eos % 1.4 % 0.0-3.0 Eos % [place] ([facility]) baso % 0.4 % 0.0-1.0 Baso % [place] ([facility]) immature granulocyte % 0.3 % 0-3.0 Immature Gran ulocyte % [place] ([facility]) lymph # 3.0 10 1.5-5.0 Lymph # [place] ([facility]) nucleated red blood cell % 0.0 % 0-0 Nucleated Red Blood Cell % [place] ([facility]) neutrophils # 3.2 10 1.5-8.5 Neutrophils # [place] ( [facility]) mono # 0.7 10 0.0-0.8 [place] # [place] ([facility]) eos # 0.1 10 0.0-0.5 Eos # [place] ([facility]) baso # 0.0 10 0.0-0.2 Baso # [place] ([facility]) ID Date Data Source [id number] 12/22/2020 11:42:00 AM EST [place] ([facility]) Name Value Range Interpretation Code Description Data Arlen rce(s) Supporting Document(s) HCG, serum qualitative negative negative HCG, Serum Qu alitative [place] ([facility]) ID Date Data Source [id number] 12/22/2020 11:42:00 AM EST [facility]) Name Value Range Interpretation Code Description Data Arlen rce(s) Supporting Document(s) total 25(oh) vitamin D 30.2 NG/mL 30.0-100.0 Total 25(Oh) Vitamin D [place] ([facility]) ID Date Data Source [id number] 12/22/2020 11:42:00 AM EST [place] ([facility]) Name Value Range Interpretation Code Description Data Arlen rce(s) Supporting Document(s) free T4 0.73 NG/dL 0.76-1.46 Below low normal Free T4 [place] ( [facility]) thyroid stimulating hormone 1.180 uIU/mL 0.358-3.740 Thyroid Stimulating Hormone [place] ([facility]) ID Date Data Source [id number] 12/22/2020 11:42:00 AM EST [place] ([facility]) Name Value Range Interpretation Code Description Data Arlen rce(s) Supporting Document(s) iron (fe) 84 ug/dL 50-170 Iron (Fe) [place] ([facility]) percent saturation 20.0 % 13.2-45.0 Percent Saturatio n [place] ([facility]) total iron binding capacity 419 ug/dL 250-450 Total Ir on Binding Capacity [place] ([facility]) ID Date Data Source [id number] 12/22/2020 11:42:00 AM EST [place] ([facility]) Name Value Range Interpretation Code Description Data Arlen rce(s) Supporting Document(s) blood urea nitrogen 13 mg/dL 7-18 Blood Urea Nitro gen [place] ([facility]) glucose, fasting 91 mg/dL 70-100 Glucose, Fasting AT [facility]) sodium level 139 mEq/L 136-145 Sodium Level [place] (No [facility]) creatinine for GFR 0.91 mg/dL 0.55-1.30 Creatinine for GF R [place] ([facility]) potassium serum 3.9 mEq/L 3.5-5.1 Potassium Serum [place] ([facility]) glomerular filtration rate > 60.0 >60 Glomerula r Filtration Rate [place] ([facility]) carbon dioxide level 30 mEq/L 21-32 Carbon Dioxide Level [place] ([facility]) chloride level 102 mEq/L 98-107 Chloride Level [place] ([facility]) anion gap 7 mEq/L 8-16 Below low normal Anion Gap [place] ( [facility]) calcium level 9.3 mg/dL 8.5-10.1 Calcium Level [place] ( [facility]) alkaline phosphatase 73 U/L 45-117 Alkaline Phosph atase [place] ([facility]) AST/SGOT 10 U/L 7-37 AST/SGOT [place] ([facility]) ALT/SGPT 19 U/L 12-78 ALT/SGPT [place] ([facility]) bilirubin,total 0.6 mg/dL 0.2-1.0 Bilirubin,total [place] ([facility]) albumin 3.9 gm/dL 3.2-5.2 Albumin [place] ([facility]) albumin/globulin ratio 1.2-2.2 Below low normal Albumin /globulin Ratio [place] ([facility]) total protein 7.6 gm/dL 6.4-8.2 Total Protein [place] ( [facility]) ID Date Data Source [id number] 12/22/2020 11:42:00 AM EST [place] ([facility]) Name Value Range Interpretation Code Description Data Arlen rce(s) Supporting Document(s) white blood count 7.0 10 4.0-10.0 White Blood Count [place] ([facility]) red blood count 4.40 10 4.00-5.40 Red Blood Count [place] ([facility]) hematocrit 40.3 % 36.0-47.0 Hematocrit [place] ([facility]) hemoglobin 13.2 g/dL 12.0-15.5 Hemoglobin [place] ([facility]) mean corpuscular volume 91.6 fL 80.0-96.0 Mean Corpusc ular Volume [place] ([facility]) mean corpuscular hemoglobin 30.0 pg 27.0-33.0 Mean Cor puscular Hemoglobin [place] ([facility]) mean corpuscular HGB conc 32.8 g/dL 32.0-36.5 Mean Corpu scular HGB Conc [place] ([facility]) red cell distribution width 13.2 % 11.5-14.5 Red Cell Distribution Width [place] ([facility]) platelet count, automated 319 10 150-450 Platelet C ount, Automated [place] ([facility]) neutrophils % 45.4 % 36.0-66.0 Neutrophils % [place] ( [facility]) lymph % 43.2 % 24.0-44.0 Lymph % [place] ([facility]) mono % 9.3 % 0.0-5.0 Above high normal [place] % [place] ([facility]) eos % 1.4 % 0.0-3.0 Eos % [place] ([facility]) immature granulocyte % 0.3 % 0-3.0 Immature Gran ulocyte % [place] ([facility]) nucleated red blood cell % 0.0 % 0-0 Nucleated Red Blood Cell % [place] ([facility]) baso % 0.4 % 0.0-1.0 Baso % [place] ([facility]) neutrophils # 3.2 10 1.5-8.5 Neutrophils # [place] ( [facility]) mono # 0.7 10 0.0-0.8 [place] # [place] ([facility]) eos # 0.1 10 0.0-0.5 Eos # [place] ([facility]) lymph # 3.0 10 1.5-5.0 Lymph # [place] ([facility]) baso # 0.0 10 0.0-0.2 Baso # [place] ([facility]) ID Date Data Source [id number] 12/22/2020 11:42:00 AM EST [place] ([facility]) Name Value Range Interpretation Code Description Data Arlen rce(s) Supporting Document(s) HCG, serum qualitative negative negative HCG, Serum Qu alitative [place] ([facility]) ID Date Data Source [id number] 12/22/2020 11:42:00 AM EST [place] ([facility]) Name Value Range Interpretation Code Description Data Arlen rce(s) Supporting Document(s) total 25(oh) vitamin D 30.2 NG/mL 30.0-100.0 Total 25(Oh) Vitamin D [place] ([facility]) ID Date Data Source [id number] 12/22/2020 11:42:00 AM EST [place] ([facility]) Name Value Range Interpretation Code Description Data Arlen rce(s) Supporting Document(s) free T4 0.73 NG/dL 0.76-1.46 Below low normal Free T4 [place] ( [facility]) thyroid stimulating hormone 1.180 uIU/mL 0.358-3.740 Thyroid Stimulating Hormone [place] ([facility]) ID Date Data Source [id number] 12/22/2020 11:42:00 AM EST [place] ([facility]) Name Value Range Interpretation Code Description Data Arlen rce(s) Supporting Document(s) iron (fe) 84 ug/dL 50-170 Iron (Fe) [place] ([facility]) total iron binding capacity 419 ug/dL 250-450 Total Ir on Binding Capacity [place] ([facility]) percent saturation 20.0 % 13.2-45.0 Percent Saturatio n [place] ([facility]) ID Date Data Source [id number] 12/22/2020 11:42:00 AM EST [place] ([facility]) Name Value Range Interpretation Code Description Data Arlen rce(s) Supporting Document(s) blood urea nitrogen 13 mg/dL 7-18 Blood Urea Nitro gen [place] ([facility]) glucose, fasting 91 mg/dL 70-100 Glucose, Fasting AT [facility] ([facility]) glomerular filtration rate > 60.0 >60 Glomerula r Filtration Rate [place] ([facility]) creatinine for GFR 0.91 mg/dL 0.55-1.30 Creatinine for GF R [place] ([facility]) sodium level 139 mEq/L 136-145 Sodium Level [place] ([facility]) potassium serum 3.9 mEq/L 3.5-5.1 Potassium Serum ATH NA ([facility]) chloride level 102 mEq/L 98-107 Chloride Level [place] ([facility]) anion gap 7 mEq/L 8-16 Below low normal Anion Gap [place] ( [facility]) calcium level 9.3 mg/dL 8.5-10.1 Calcium Level [place] ( [facility]) carbon dioxide level 30 mEq/L 21-32 Carbon Dioxide Level [place] ([facility]) AST/SGOT 10 U/L 7-37 AST/SGOT [place] ([facility]) ALT/SGPT 19 U/L 12-78 ALT/SGPT [place] ([facility]) alkaline phosphatase 73 U/L 45-117 Alkaline Phosph atase [place] ([facility]) bilirubin,total 0.6 mg/dL 0.2-1.0 Bilirubin,total [place] NA ([facility]) albumin/globulin ratio 1.2-2.2 Below low normal Albumin /globulin Ratio [place] ([facility]) albumin 3.9 gm/dL 3.2-5.2 Albumin [place] ([facility]) total protein 7.6 gm/dL 6.4-8.2 Total Protein [place] ( [facility]) ID Date Data Source [id number] 12/22/2020 11:42:00 AM EST [place] ([facility]) Name Value Range Interpretation Code Description Data Arlen rce(s) Supporting Document(s) white blood count 7.0 10 4.0-10.0 White Blood Count [place] ([facility]) hemoglobin 13.2 g/dL 12.0-15.5 Hemoglobin [place] ([facility]) red blood count 4.40 10 4.00-5.40 Red Blood Count [place] ([facility]) mean corpuscular volume 91.6 fL 80.0-96.0 Mean Corpusc ular Volume [place] ([facility]) hematocrit 40.3 % 36.0-47.0 Hematocrit [place] ([facility]) mean corpuscular HGB conc 32.8 g/dL 32.0-36.5 Mean Corpu scular HGB Conc [place] ([facility]) mean corpuscular hemoglobin 30.0 pg 27.0-33.0 Mean Cor puscular Hemoglobin [place] ([facility]) red cell distribution width 13.2 % 11.5-14.5 Red Cell Distribution Width [place] ([facility]) neutrophils % 45.4 % 36.0-66.0 Neutrophils % [place] ( [facility]) lymph % 43.2 % 24.0-44.0 Lymph % [place] ([facility]) platelet count, automated 319 10 150-450 Platelet C ount, Automated [place] ([facility]) baso % 0.4 % 0.0-1.0 Baso % [place] ([facility]) mono % 9.3 % 0.0-5.0 Above high normal [place] % [place] ([facility]) eos % 1.4 % 0.0-3.0 Eos % [place] ([facility]) neutrophils # 3.2 10 1.5-8.5 Neutrophils # [place] ( [facility]) immature granulocyte % 0.3 % 0-3.0 Immature Gran ulocyte % [place] ([facility]) nucleated red blood cell % 0.0 % 0-0 Nucleated Red Blood Cell % [place] ([facility]) baso # 0.0 10 0.0-0.2 Baso # [place] ([facility]) mono # 0.7 10 0.0-0.8 [place] # [place] ([facility]) eos # 0.1 10 0.0-0.5 Eos # [place] ([facility]) lymph # 3.0 10 1.5-5.0 Lymph # [place] ([facility]) ID Date Data Source [id number] 12/22/2020 11:42:00 AM EST [place] ([facility]) Name Value Range Interpretation Code Description Data Arlen rce(s) Supporting Document(s) HCG, serum qualitative negative negative HCG, Serum Qu alitative [place] ([facility]) ID Date Data Source [id number] 12/22/2020 11:42:00 AM EST [place] ([facility]) Name Value Range Interpretation Code Description Data Arlen rce(s) Supporting Document(s) total 25(oh) vitamin D 30.2 NG/mL 30.0-100.0 Total 25(Oh) Vitamin D [place] ([facility]) ID Date Data Source [id number] 12/22/2020 11:42:00 AM EST [place] ([facility]) Name Value Range Interpretation Code Description Data Arlen rce(s) Supporting Document(s) free T4 0.73 NG/dL 0.76-1.46 Below low normal Free T4 [place] ( [facility]) thyroid stimulating hormone 1.180 uIU/mL 0.358-3.740 Thyroid Stimulating Hormone [place] ([facility]) ID Date Data Source [id number] 12/22/2020 11:42:00 AM EST [place] ([facility]) Name Value Range Interpretation Code Description Data Arlen rce(s) Supporting Document(s) percent saturation 20.0 % 13.2-45.0 Percent Saturatio n [place] ([facility]) iron (fe) 84 ug/dL 50-170 Iron (Fe) [place] ([facility]) total iron binding capacity 419 ug/dL 250-450 Total Ir on Binding Capacity [place] ([facility]) ID Date Data Source [id number] 12/22/2020 11:42:00 AM EST [place] ([facility]) Name Value Range Interpretation Code Description Data Arlen rce(s) Supporting Document(s) blood urea nitrogen 13 mg/dL 7-18 Blood Urea Nitro gen [place] ([facility]) glomerular filtration rate > 60.0 >60 Glomerula r Filtration Rate [place] ([facility]) creatinine for GFR 0.91 mg/dL 0.55-1.30 Creatinine for GF R [place] ([facility]) glucose, fasting 91 mg/dL 70-100 Glucose, Fasting AT [facility] ([facility]) sodium level 139 mEq/L 136-145 Sodium Level [place] ([facility]) chloride level 102 mEq/L 98-107 Chloride Level [place] ([facility]) carbon dioxide level 30 mEq/L 21-32 Carbon Dioxide Level [place] ([facility]) potassium serum 3.9 mEq/L 3.5-5.1 Potassium Serum [place] ([facility]) alkaline phosphatase 73 U/L 45-117 Alkaline Phosph atase [place] ([facility]) anion gap 7 mEq/L 8-16 Below low normal Anion Gap [place] ( [facility]) ALT/SGPT 19 U/L 12-78 ALT/SGPT [place] ([facility]) calcium level 9.3 mg/dL 8.5-10.1 Calcium Level [place] ( [facility]) AST/SGOT 10 U/L 7-37 AST/SGOT [place] ([facility]) albumin 3.9 gm/dL 3.2-5.2 Albumin [place] ([facility]) albumin/globulin ratio 1.2-2.2 Below low normal Albumin /globulin Ratio [place] ([facility]) bilirubin,total 0.6 mg/dL 0.2-1.0 Bilirubin,total [place] ([facility]) total protein 7.6 gm/dL 6.4-8.2 Total Protein [place] ( [facility]) ID Date Data Source [id number] 12/22/2020 11:42:00 AM EST [place] ([facility]) Name Value Range Interpretation Code Description Data Arlen rce(s) Supporting Document(s) white blood count 7.0 10 4.0-10.0 White Blood Count [place] ([facility]) red blood count 4.40 10 4.00-5.40 Red Blood Count [place] ([facility]) hemoglobin 13.2 g/dL 12.0-15.5 Hemoglobin [place] ([facility]) hematocrit 40.3 % 36.0-47.0 Hematocrit [place] ([facility]) mean corpuscular HGB conc 32.8 g/dL 32.0-36.5 Mean Corpu scular HGB Conc [place] ([facility]) red cell distribution width 13.2 % 11.5-14.5 Red Cell Distribution Width [place] ([facility]) mean corpuscular hemoglobin 30.0 pg 27.0-33.0 Mean Cor puscular Hemoglobin [place] ([facility]) mean corpuscular volume 91.6 fL 80.0-96.0 Mean Corpusc ular Volume [place] ([facility]) mono % 9.3 % 0.0-5.0 Above high normal [place] % [place] ([facility]) platelet count, automated 319 10 150-450 Platelet C ount, Automated [place] ([facility]) lymph % 43.2 % 24.0-44.0 Lymph % [place] ([facility]) neutrophils % 45.4 % 36.0-66.0 Neutrophils % [place] ( [facility]) nucleated red blood cell % 0.0 % 0-0 Nucleated Red Blood Cell % [place] ([facility]) eos % 1.4 % 0.0-3.0 Eos % [place] ([facility]) immature granulocyte % 0.3 % 0-3.0 Immature Gran ulocyte % [place] ([facility]) baso % 0.4 % 0.0-1.0 Baso % [place] ([facility]) lymph # 3.0 10 1.5-5.0 Lymph # [place] ([facility]) mono # 0.7 10 0.0-0.8 [place] # [place] ([facility]) eos # 0.1 10 0.0-0.5 Eos # [place] ([facility]) neutrophils # 3.2 10 1.5-8.5 Neutrophils # [place] ( [facility]) baso # 0.0 10 0.0-0.2 Baso # [place] ([facility]) ID Date Data Source [id number] 12/22/2020 11:42:00 AM EST [place] ([facility]) Name Value Range Interpretation Code Description Data Arlen rce(s) Supporting Document(s) HCG, serum qualitative negative negative HCG, Serum Qu alitative [place] ([facility]) ID Date Data Source [id number] 12/22/2020 11:42:00 AM EST [place] ([facility]) Name Value Range Interpretation Code Description Data Arlen rce(s) Supporting Document(s) total 25(oh) vitamin D 30.2 NG/mL 30.0-100.0 Total 25(Oh) Vitamin D [place] ([facility]) ID Date Data Source [id number] 12/22/2020 11:42:00 AM EST [place] ([facility]) Name Value Range Interpretation Code Description Data Arlen rce(s) Supporting Document(s) thyroid stimulating hormone 1.180 uIU/mL 0.358-3.740 Thyroid Stimulating Hormone [place] ([facility]) free T4 0.73 NG/dL 0.76-1.46 Below low normal Free T4 [place] ( [facility]) ID Date Data Source [id number] 12/22/2020 11:42:00 AM EST [place] ([facility]) Name Value Range Interpretation Code Description Data Arlen rce(s) Supporting Document(s) total iron binding capacity 419 ug/dL 250-450 Total Ir on Binding Capacity [place] ([facility]) percent saturation 20.0 % 13.2-45.0 Percent Saturatio n [place] ([facility]) iron (fe) 84 ug/dL 50-170 Iron (Fe) [place] ([facility]) ID Date Data Source [id number] 12/22/2020 11:42:00 AM EST [place] ([facility]) Name Value Range Interpretation Code Description Data Arlen rce(s) Supporting Document(s) blood urea nitrogen 13 mg/dL 7-18 Blood Urea Nitro gen [place] ([facility]) glucose, fasting 91 mg/dL 70-100 Glucose, Fasting AT [place] ([facility]) glomerular filtration rate > 60.0 >60 Glomerula r Filtration Rate [place] ([facility]) sodium level 139 mEq/L 136-145 Sodium Level [place] ([facility]) potassium serum 3.9 mEq/L 3.5-5.1 Potassium Serum [place] NA ([facility]) creatinine for GFR 0.91 mg/dL 0.55-1.30 Creatinine for GF R [place] ([facility]) chloride level 102 mEq/L 98-107 Chloride Level [place] ([facility]) anion gap 7 mEq/L 8-16 Below low normal Anion Gap [place] ( [facility]) carbon dioxide level 30 mEq/L 21-32 Carbon Dioxide Level [place] ([facility]) alkaline phosphatase 73 U/L 45-117 Alkaline Phosph atase [place] ([facility]) AST/SGOT 10 U/L 7-37 AST/SGOT [place] ([facility]) ALT/SGPT 19 U/L 12-78 ALT/SGPT [place] ([facility]) calcium level 9.3 mg/dL 8.5-10.1 Calcium Level [place] ( [facility]) bilirubin,total 0.6 mg/dL 0.2-1.0 Bilirubin,total [place] ([facility]) albumin/globulin ratio 1.2-2.2 Below low normal Albumin /globulin Ratio [place] ([facility]) albumin 3.9 gm/dL 3.2-5.2 Albumin [place] ([facility]) total protein 7.6 gm/dL 6.4-8.2 Total Protein [place] ( [facility]) ID Date Data Source [id number] 12/22/2020 11:42:00 AM EST [place] ([facility]) Name Value Range Interpretation Code Description Data Arlen rce(s) Supporting Document(s) white blood count 7.0 10 4.0-10.0 White Blood Count [place] ([facility]) hemoglobin 13.2 g/dL 12.0-15.5 Hemoglobin [place] ([facility]) red blood count 4.40 10 4.00-5.40 Red Blood Count [place] ([facility]) hematocrit 40.3 % 36.0-47.0 Hematocrit [place] ([facility]) mean corpuscular HGB conc 32.8 g/dL 32.0-36.5 Mean Corpu scular HGB Conc [place] ([facility]) mean corpuscular volume 91.6 fL 80.0-96.0 Mean Corpusc ular Volume [place] ([facility]) mean corpuscular hemoglobin 30.0 pg 27.0-33.0 Mean Cor puscular Hemoglobin [place] ([facility]) red cell distribution width 13.2 % 11.5-14.5 Red Cell Distribution Width [place] ([facility]) mono % 9.3 % 0.0-5.0 Above high normal [place] % [place] ([facility]) neutrophils % 45.4 % 36.0-66.0 Neutrophils % [place] ( [facility]) platelet count, automated 319 10 150-450 Platelet C ount, Automated [place] ([facility]) lymph % 43.2 % 24.0-44.0 Lymph % [place] ([facility]) immature granulocyte % 0.3 % 0-3.0 Immature Gran ulocyte % [place] ([facility]) baso % 0.4 % 0.0-1.0 Baso % [place] ([facility]) eos % 1.4 % 0.0-3.0 Eos % [place] ([facility]) nucleated red blood cell % 0.0 % 0-0 Nucleated Red Blood Cell % [place] ([facility]) eos # 0.1 10 0.0-0.5 Eos # [place] ([facility]) neutrophils # 3.2 10 1.5-8.5 Neutrophils # [place] ( [facility]) lymph # 3.0 10 1.5-5.0 Lymph # [place] ([facility]) mono # 0.7 10 0.0-0.8 [place] # [place] ([facility]) baso # 0.0 10 0.0-0.2 Baso # [place] ([facility]) ID Date Data Source [id number] 12/22/2020 11:42:00 AM EST [place] ([facility]) Name Value Range Interpretation Code Description Data Arlen rce(s) Supporting Document(s) HCG, serum qualitative negative negative HCG, Serum Qu alitative [place] ([facility]) ID Date Data Source [id number] 12/22/2020 11:42:00 AM EST [place] ([facility]) Name Value Range Interpretation Code Description Data Arlen rce(s) Supporting Document(s) total 25(oh) vitamin D 30.2 NG/mL 30.0-100.0 Total 25(Oh) Vitamin D [place] ([facility]) ID Date Data Source [id number] 12/22/2020 11:42:00 AM EST [place] ([facility]) Name Value Range Interpretation Code Description Data Arlen rce(s) Supporting Document(s) thyroid stimulating hormone 1.180 uIU/mL 0.358-3.740 Thyroid Stimulating Hormone [place] ([facility]) free T4 0.73 NG/dL 0.76-1.46 Below low normal Free T4 [place] ( [facility]) ID Date Data Source [id number] 12/22/2020 11:42:00 AM EST [place] ([facility]) Name Value Range Interpretation Code Description Data Arlen rce(s) Supporting Document(s) total iron binding capacity 419 ug/dL 250-450 Total Ir on Binding Capacity [place] ([facility]) iron (fe) 84 ug/dL 50-170 Iron (Fe) [place] ([facility]) percent saturation 20.0 % 13.2-45.0 Percent Saturatio n [place] ([facility]) ID Date Data Source [id number] 12/22/2020 11:42:00 AM EST [place] ([facility]) Name Value Range Interpretation Code Description Data Arlen rce(s) Supporting Document(s) HCG, serum qualitative negative negative HCG, Serum Qu alitative [place] ([facility]) ID Date Data Source [id number] 12/22/2020 11:42:00 AM EST [place] ([facility]) Name Value Range Interpretation Code Description Data Arlen rce(s) Supporting Document(s) total 25(oh) vitamin D 30.2 NG/mL 30.0-100.0 Total 25(Oh) Vitamin D [place] ([facility]) ID Date Data Source [id number] 12/22/2020 11:42:00 AM EST [facility]) Name Value Range Interpretation Code Description Data Arlen rce(s) Supporting Document(s) thyroid stimulating hormone 1.180 uIU/mL 0.358-3.740 Thyroid Stimulating Hormone [place] ([facility]) free T4 0.73 NG/dL 0.76-1.46 Below low normal Free T4 [facility]) ID Date Data Source [id number] 12/22/2020 11:42:00 AM EST [facility]) Name Value Range Interpretation Code Description Data Arlen rce(s) Supporting Document(s) total iron binding capacity 419 ug/dL 250-450 Total Ir on Binding Capacity [place] ([facility]) iron (fe) 84 ug/dL 50-170 Iron (Fe) [place] ([facility]) percent saturation 20.0 % 13.2-45.0 Percent Saturatio n [place] ([facility]) ID Date Data Source [id number] 12/22/2020 11:42:00 [facility] Name Value Range Interpretation Code Description Data Arlen rce(s) Supporting Document(s) glucose, fasting 91 mg/dL 70-100 Glucose, Fasting AT [facility]) blood urea nitrogen 13 mg/dL 7-18 Blood Urea Nitro gen [place] ([facility]) glomerular filtration rate > 60.0 >60 Glomerula r Filtration Rate [place] ([facility]) sodium level 139 mEq/L 136-145 Sodium Level [place] ([facility]) potassium serum 3.9 mEq/L 3.5-5.1 Potassium Serum [place] NA ([facility]) creatinine for GFR 0.91 mg/dL 0.55-1.30 Creatinine for GF R [place] ([facility]) chloride level 102 mEq/L 98-107 Chloride Level [place] ([facility]) carbon dioxide level 30 mEq/L 21-32 Carbon Dioxide Level [place] ([facility]) anion gap 7 mEq/L 8-16 Below low normal Anion Gap [place] ( [facility]) calcium level 9.3 mg/dL 8.5-10.1 Calcium Level [place] ( [facility]) AST/SGOT 10 U/L 7-37 AST/SGOT [place] ([facility]) bilirubin,total 0.6 mg/dL 0.2-1.0 Bilirubin,total ATHE NA ([facility]) alkaline phosphatase 73 U/L 45-117 Alkaline Phosph atase [place] ([facility]) ALT/SGPT 19 U/L 12-78 ALT/SGPT [place] ([facility]) albumin/globulin ratio 1.2-2.2 Below low normal Albumin /globulin Ratio [place] ([facility]) total protein 7.6 gm/dL 6.4-8.2 Total Protein [place] ( [facility]) albumin 3.9 gm/dL 3.2-5.2 Albumin [place] ([facility]) ID Date Data Source [id number] 12/22/2020 11:42:00 AM EST [place] ([facility]) Name Value Range Interpretation Code Description Data Arlen rce(s) Supporting Document(s) white blood count 7.0 10 4.0-10.0 White Blood Count [place] ([facility]) mean corpuscular volume 91.6 fL 80.0-96.0 Mean Corpusc ular Volume [place] ([facility]) red blood count 4.40 10 4.00-5.40 Red Blood Count [place] ([facility]) hemoglobin 13.2 g/dL 12.0-15.5 Hemoglobin [place] ([facility]) hematocrit 40.3 % 36.0-47.0 Hematocrit [place] ([facility]) mean corpuscular hemoglobin 30.0 pg 27.0-33.0 Mean Cor puscular Hemoglobin [place] ([facility]) red cell distribution width 13.2 % 11.5-14.5 Red Cell Distribution Width [place] ([facility]) mean corpuscular HGB conc 32.8 g/dL 32.0-36.5 Mean Corpu scular HGB Conc [place] ([facility]) platelet count, automated 319 10 150-450 Platelet C ount, Automated [place] ([facility]) mono % 9.3 % 0.0-5.0 Above high normal Stanley % [place] ([facility]) lymph % 43.2 % 24.0-44.0 Lymph % [place] ([facility]) neutrophils % 45.4 % 36.0-66.0 Neutrophils % [place] ( [facility]) baso % 0.4 % 0.0-1.0 Baso % [place] ([facility]) nucleated red blood cell % 0.0 % 0-0 Nucleated Red Blood Cell % [place] ([facility]) eos % 1.4 % 0.0-3.0 Eos % [place] ([facility]) immature granulocyte % 0.3 % 0-3.0 Immature Gran ulocyte % [place] ([facility]) lymph # 3.0 10 1.5-5.0 Lymph # [place] ([facility]) eos # 0.1 10 0.0-0.5 Eos # [place] ([facility]) mono # 0.7 10 0.0-0.8 Stanley # [place] ([facility]) neutrophils # 3.2 10 1.5-8.5 Neutrophils # [place] ( [facility]) baso # 0.0 10 0.0-0.2 Baso # [place] ([facility]) Procedure Social History No Information Vital Signs ID Date Data Source UNK Name Value Range Interpretation Code Description Data Source(s) Systolic blood pressure 111 mm[Hg] 111 mm[Hg] M EDENT ([facility], [facility]) Diastolic blood pressure 74 mm[Hg] 74 mm[Hg] MEDENT ([facility], [facility]) Heart rate 99 /min 99 /min MEDENT ([facility], [facility]) Respiratory rate 16 /min 16 /min [facility] ( [facility], [facility]) Oxygen saturation in Arterial blood by Pulse oximetry 96 % 96 % [facility], [facility]) Body temperature 98.3 [degF] 98.3 [degF] MEDENT ([facility], [facility]) Body weight 138.00 [lb_av] 138.00 [lb_av] MEDEN T ([facility], [facility]) Body height 68 [in_i] 68 [in_i] [facility], [facility]) 5'8" Body mass index (BMI) [Ratio] 21.0 kg/m2 21.0 k g/m2 [facility] ([facility]) Diastolic blood pressure 72 mm[Hg] 72 mm[Hg] [place] ([facility]) Body height 59.5 [in_i] 59.5 [in_i] [place] ([facility]) Systolic blood pressure 111 mm[Hg] 111 mm[Hg] A THENA ([facility]) Body weight 2264 [oz_av] 2264 [oz_av] [place] ([facility]) Body mass index (BMI) [Ratio] 28.1 kg/m2 28.1 k g/m2 [place] ([facility]) Body weight 62.767 kg 62.767 kg MEDENT [facility] Body surface area Derived from formula 1.57 m2 1.57 m2 MEDENT ([facility], ) Systolic blood pressure 118 mm[Hg] 118 mm[Hg] M EDENT ([facility], ) Diastolic blood pressure 62 mm[Hg] 62 mm[Hg] MEDENT ([facility]) Heart rate 79 /min 79 /min MEDENT ([facility]) Oxygen saturation in Arterial blood by Pulse oximetry 96 % 96 % MEDENT ([facility]) Body height 58.5 [in_i] 58.5 [in_i] [facility] 4'10.50" Body weight 138.38 [lb_av] 138.38 [lb_av] MEDEN T ([facility]) Body mass index (BMI) [Ratio] 28.4 kg/m2 28.4 k g/m2 MEDENT ([facility]) [place] body weight 100 [lb_av] 100 [lb_av] MEDEN T ([facility]) Oxygen saturation in Arterial blood by Pulse oximetry 95 % 95 % [facility] ([facility], [facility]) Heart rate 101 /min 101 /min MEDENT ([facility], [facility]) Body height 68 [in_i] 68 [in_i] MEDENT ([facility], [facility]) 5'8" Systolic blood pressure 106 mm[Hg] 106 mm[Hg] M EDENT ([facility], [facility]) Diastolic blood pressure 70 mm[Hg] 70 mm[Hg] MEDENT ([facility], [facility]) Respiratory rate 14 /min 14 /min MEDENT ( [facility], [facility]) Body temperature 97.3 [degF] 97.3 [degF] MEDENT ([facility], [facility]) Body weight 138.00 [lb_av] 138.00 [lb_av] MEDEN T ([facility], [facility]) Body mass index (BMI) [Ratio] 21.0 kg/m2 21.0 k g/m2 MEDENT ([facility], [facility]) Body height 68 [in_i] 68 [in_i] MEDENT ([facility], [facility]) 5'8" Body mass index (BMI) [Ratio] 21.0 kg/m2 21.0 k g/m2 MEDENT ([facility], [facility]) Heart rate 79 /min 79 /min MEDENT ([facility], [facility]) Systolic blood pressure 123 mm[Hg] 123 mm[Hg] M EDENT ([facility], [facility]) Diastolic blood pressure 76 mm[Hg] 76 mm[Hg] MEDENT ([facility], [facility]) Respiratory rate 12 /min 12 /min [facility] ( [facility], [facility]) Oxygen saturation in Arterial blood by Pulse oximetry 97 % 97 % [facility] ([facility], [facility]) Body temperature 98.7 [degF] 98.7 [degF] [facility] ([facility], [facility]) Body weight 138.00 [lb_av] 138.00 [lb_av] MEDEN T ([facility], [facility]) Diastolic blood pressure 68 mm[Hg] 68 mm[Hg] [facility] ([facility], ) Heart rate 97 /min 97 /min [facility] ([facility], ) Oxygen saturation in Arterial blood by Pulse oximetry 99 % 99 % [facility] ([facility]) Body height 58.5 [in_i] 58.5 [in_i] [facility] ([facility]) 4'10.50" Body weight 138.12 [lb_av] 138.12 [lb_av] [facility] Body mass index (BMI) [Ratio] 28.4 kg/m2 28.4 k g/m2 [facility] ([facility]) Systolic blood pressure 112 mm[Hg] 112 mm[Hg] [facility] ([facility], ) [place] body weight 100 [lb_av] 100 [lb_av] [facility] Body weight 62.654 kg 62.654 kg [facility] ([facility]) Body surface area Derived from formula 1.57 m2 1.57 m2 [facility] ([facility]) Diastolic blood pressure 84 mm[Hg] 84 mm[Hg] [place] ([facility]) Body height 59.5 [in_i] 59.5 [in_i] [place] ([facility]) Body mass index (BMI) [Ratio] 27.7 kg/m2 27.7 k g/m2 [place] ([facility]) Systolic blood pressure 118 mm[Hg] 118 mm[Hg] [facility] Body weight 2230 [oz_av] 2230 [oz_av] [place] ([facility]) Diastolic blood pressure 84 mm[Hg] 84 mm[Hg] [place] ([facility]) Body height 59.5 [in_i] 59.5 [in_i] [place] ([facility]) Body mass index (BMI) [Ratio] 27.7 kg/m2 27.7 k g/m2 [place] ([facility]) Systolic blood pressure 118 mm[Hg] 118 mm[Hg] A THENA ([facility]) Body weight 2230 [oz_av] 2230 [oz_av] [place] ([facility]) Body weight 2230 [oz_av] 2230 [oz_av] [place] ([facility]) Diastolic blood pressure 84 mm[Hg] 84 mm[Hg] [place] ([facility]) Body height 59.5 [in_i] 59.5 [in_i] [place] ([facility]) Body mass index (BMI) [Ratio] 27.7 kg/m2 27.7 k g/m2 [place] ([facility]) Systolic blood pressure 118 mm[Hg] 118 mm[Hg] A THENA ([facility]) Body weight 130.00 [lb_av] 130.00 [lb_av] DONATO T ([facility], ) Body height 58 [in_i] 58 [in_i] MEDM[place] ([facility], ) 4'10" Respiratory rate 12 /min 12 /min [place] ( [facility], ) Body mass index (BMI) [Ratio] 27.2 kg/m2 27.2 k g/m2 [place] ([facility], ) [place] body weight 100 [lb_av] 100 [lb_av] MEDEN T ([facility], ) Oxygen saturation in Arterial blood by Pulse oximetry 97 % 97 % [place] ([facility], [facility]) Systolic blood pressure 118 mm[Hg] 118 mm[Hg] Nas RIVAS ([facility], [facility]) Body temperature 98.2 [degF] 98.2 [degF] MEDENT ([facility], [facility]) Diastolic blood pressure 80 mm[Hg] 80 mm[Hg] MEDENT ([facility], [facility]) Heart rate 98 /min 98 /min MEDENT ([facility], [facility]) Respiratory rate 14 /min 14 /min MEDENT ( [facility], [facility]) Body weight 130.00 [lb_av] 130.00 [lb_av] MEDEN T ([facility], [facility]) Body height 68 [in_i] 68 [in_i] MEDENT ([facility], [facility]) 5'8" Body mass index (BMI) [Ratio] 19.8 kg/m2 19.8 k g/m2 MEDENT ([facility], [facility]) Body height 59.5 [in_i] 59.5 [in_i] [place] ([facility]) Body mass index (BMI) [Ratio] 26 kg/m2 26 kg/ m2 [place] ([facility]) Body weight 2096 [oz_av] 2096 [oz_av] [place] ([facility]) Body height 59.5 [in_i] 59.5 [in_i] [place] ([facility]) Body mass index (BMI) [Ratio] 26 kg/m2 26 kg/ m2 [place] ([facility]) Body weight 2096 [oz_av] 2096 [oz_av] [place] ([facility]) Body height 59.5 [in_i] 59.5 [in_i] [place] ([facility]) Body mass index (BMI) [Ratio] 26 kg/m2 26 kg/ m2 [place] ([facility]) Body weight 2096 [oz_av] 2096 [oz_av] [place] ([facility]) Body height 59.5 [in_i] 59.5 [in_i] [place] ([facility]) Body mass index (BMI) [Ratio] 26 kg/m2 26 kg/ m2 [place] ([facility]) Body weight 2096 [oz_av] 2096 [oz_av] [place] ([facility]) Diastolic blood pressure 79 mm[Hg] 79 mm[Hg] [place] ([facility]) Body height 59.5 [in_i] 59.5 [in_i] [place] ([facility]) Body mass index (BMI) [Ratio] 26.6 kg/m2 26.6 k g/m2 [place] ([facility]) Systolic blood pressure 114 mm[Hg] 114 mm[Hg] A THENA ([facility]) Body weight 2144 [oz_av] 2144 [oz_av] [place] ([facility]) Systolic blood pressure 114 mm[Hg] 114 mm[Hg] A THENA ([facility]) Body weight 2144 [oz_av] 2144 [oz_av] [place] ([facility]) Diastolic blood pressure 79 mm[Hg] 79 mm[Hg] [place] ([facility]) Body height 59.5 [in_i] 59.5 [in_i] [place] ([facility]) Body mass index (BMI) [Ratio] 26.6 kg/m2 26.6 k g/m2 [place] ([facility]) Diastolic blood pressure 79 mm[Hg] 79 mm[Hg] [place] ([facility]) Body height 59.5 [in_i] 59.5 [in_i] [place] ([facility]) Body mass index (BMI) [Ratio] 26.6 kg/m2 26.6 k g/m2 [place] ([facility]) Systolic blood pressure 114 mm[Hg] 114 mm[Hg] A THENA ([facility]) Body weight 2144 [oz_av] 2144 [oz_av] [place] ([facility]) Diastolic blood pressure 79 mm[Hg] 79 mm[Hg] [place] ([facility]) Body height 59.5 [in_i] 59.5 [in_i] [place] ([facility]) Body mass index (BMI) [Ratio] 26.6 kg/m2 26.6 k g/m2 [place] ([facility]) Systolic blood pressure 114 mm[Hg] 114 mm[Hg] A THENA ([facility]) Body weight 2144 [oz_av] 2144 [oz_av] [place] ([facility]) Body weight 2144 [oz_av] 2144 [oz_av] [place] ([facility]) Diastolic blood pressure 79 mm[Hg] 79 mm[Hg] [place] ([facility]) Body height 59.5 [in_i] 59.5 [in_i] [place] ([facility]) Body mass index (BMI) [Ratio] 26.6 kg/m2 26.6 k g/m2 [place] ([facility]) Systolic blood pressure 114 mm[Hg] 114 mm[Hg] A THENA ([facility]) Oxygen saturation in Arterial blood by Pulse oximetry 99 % 99 % [facility] ([facility], [facility]) Body temperature 97.8 [degF] 97.8 [degF] MEDENT ([facility], [facility]) Body weight 134.00 [lb_av] 134.00 [lb_av] MEDEN T ([facility], [facility]) Body height 68 [in_i] 68 [in_i] MEDENT ([facility], [facility]) 5'8" Body mass index (BMI) [Ratio] 20.4 kg/m2 20.4 k g/m2 MEDENT ([facility], [facility]) Respiratory rate 12 /min 12 /min MEDENT ( [facility], [facility]) Diastolic blood pressure 78 mm[Hg] 78 mm[Hg] MEDENT ([facility], [facility]) Heart rate 80 /min 80 /min MEDENT ([facility], [facility]) Systolic blood pressure 128 mm[Hg] 128 mm[Hg] M EDENT ([facility], [facility]) Systolic blood pressure 133 mm[Hg] 133 mm[Hg] M EDENT ([facility], [facility]) Diastolic blood pressure 82 mm[Hg] 82 mm[Hg] MEDENT ([facility], [facility]) Oxygen saturation in Arterial blood by Pulse oximetry 98 % 98 % MEDENT ([facility], [facility]) Body weight 134.00 [lb_av] 134.00 [lb_av] MEDEN T ([facility], [facility]) Body temperature 98.7 [degF] 98.7 [degF] MEDENT ([facility], [facility]) Heart rate 90 /min 90 /min MEDENT ([facility], [facility]) Respiratory rate 13 /min 13 /min MEDENT ( [facility], [facility]) Body height 68 [in_i] 68 [in_i] MEDENT ([facility], [facility]) 5'8" Body mass index (BMI) [Ratio] 20.4 kg/m2 20.4 k g/m2 MEDENT ([facility], [facility]) Body weight 134.00 [lb_av] 134.00 [lb_av] MEDEN T ([facility], [facility]) Systolic blood pressure 119 mm[Hg] 119 mm[Hg] M EDENT ([facility], [facility]) Diastolic blood pressure 75 mm[Hg] 75 mm[Hg] MEDENT ([facility], [facility]) Heart rate 91 /min 91 /min MEDENT ([facility], [facility]) Respiratory rate 12 /min 12 /min MEDENT ( [facility], [facility]) Oxygen saturation in Arterial blood by Pulse oximetry 96 % 96 % MEDENT ([facility], [facility]) Body temperature 99.1 [degF] 99.1 [degF] MEDENT ([facility], [facility]) Body height 58 [in_i] 58 [in_i] MEDENT ([facility], [facility]) 4'10" Body mass index (BMI) [Ratio] 28.0 kg/m2 28.0 k g/m2 MEDENT ([facility], [facility]) Diastolic blood pressure 77 mm[Hg] 77 mm[Hg] [place] ([facility]) Body height 59.5 [in_i] 59.5 [in_i] [place] ([facility]) Body mass index (BMI) [Ratio] 26.8 kg/m2 26.8 k g/m2 [place] ([facility]) Systolic blood pressure 127 mm[Hg] 127 mm[Hg] A THENA ([facility]) Body weight 2156.8 [oz_av] 2156.8 [oz_av] ATHEN A ([facility]) Diastolic blood pressure 77 mm[Hg] 77 mm[Hg] [place] ([facility]) Body height 59.5 [in_i] 59.5 [in_i] [place] ([facility]) Body mass index (BMI) [Ratio] 26.8 kg/m2 26.8 k g/m2 [place] ([facility]) Systolic blood pressure 127 mm[Hg] 127 mm[Hg] A THENA ([facility]) Body weight 2156.8 [oz_av] 2156.8 [oz_av] ATHEN A ([facility]) Diastolic blood pressure 77 mm[Hg] 77 mm[Hg] [place] ([facility]) Body height 59.5 [in_i] 59.5 [in_i] [place] ([facility]) Body mass index (BMI) [Ratio] 26.8 kg/m2 26.8 k g/m2 [place] ([facility]) Systolic blood pressure 127 mm[Hg] 127 mm[Hg] A THENA ([facility]) Body weight 2156.8 [oz_av] 2156.8 [oz_av] ATHEN A ([facility]) Diastolic blood pressure 77 mm[Hg] 77 mm[Hg] [place] ([facility]) Body height 59.5 [in_i] 59.5 [in_i] [place] ([facility]) Body mass index (BMI) [Ratio] 26.8 kg/m2 26.8 k g/m2 [place] ([facility]) Systolic blood pressure 127 mm[Hg] 127 mm[Hg] A THENA ([facility]) Body weight 2156.8 [oz_av] 2156.8 [oz_av] ATHEN A ([facility]) Diastolic blood pressure 77 mm[Hg] 77 mm[Hg] [place] ([facility]) Body height 59.5 [in_i] 59.5 [in_i] [place] ([facility]) Body mass index (BMI) [Ratio] 26.8 kg/m2 26.8 k g/m2 [place] ([facility]) Systolic blood pressure 127 mm[Hg] 127 mm[Hg] A THENA ([facility]) Body weight 2156.8 [oz_av] 2156.8 [oz_av] ATHEN A ([facility]) Diastolic blood pressure 77 mm[Hg] 77 mm[Hg] [place] ([facility]) Body height 59.5 [in_i] 59.5 [in_i] [place] ([facility]) Body mass index (BMI) [Ratio] 26.8 kg/m2 26.8 k g/m2 [place] ([facility]) Systolic blood pressure 127 mm[Hg] 127 mm[Hg] A THENA ([facility]) Body weight 2156.8 [oz_av] 2156.8 [oz_av] ATHEN A ([facility]) Body height 59.5 [in_i] 59.5 [in_i] [place] ([facility]) Body height 59.5 [in_i] 59.5 [in_i] [place] ([facility]) Body height 59.5 [in_i] 59.5 [in_i] [place] ([facility]) Body height 59.5 [in_i] 59.5 [in_i] [place] ([facility]) Body height 59.5 [in_i] 59.5 [in_i] [place] ([facility]) Body height 59.5 [in_i] 59.5 [in_i] [place] ([facility]) Body height 59.5 [in_i] 59.5 [in_i] [place] ([facility]) Body weight 2153.6 [oz_av] 2153.6 [oz_av] ATHEN A ([facility]) Diastolic blood pressure 78 mm[Hg] 78 mm[Hg] [place] ([facility]) Body height 59.5 [in_i] 59.5 [in_i] [place] ([facility]) Body mass index (BMI) [Ratio] 26.7 kg/m2 26.7 k g/m2 [place] ([facility]) Systolic blood pressure 117 mm[Hg] 117 mm[Hg] A THENA ([facility]) Systolic blood pressure 117 mm[Hg] 117 mm[Hg] A THENA ([facility]) Body weight 2153.6 [oz_av] 2153.6 [oz_av] ATHEN A ([facility]) Diastolic blood pressure 78 mm[Hg] 78 mm[Hg] [place] ([facility]) Body height 59.5 [in_i] 59.5 [in_i] [place] ([facility]) Body mass index (BMI) [Ratio] 26.7 kg/m2 26.7 k g/m2 [place] ([facility]) Body mass index (BMI) [Ratio] 26.7 kg/m2 26.7 k g/m2 [place] ([facility]) Systolic blood pressure 117 mm[Hg] 117 mm[Hg] [facility] Body weight 2153.6 [oz_av] 2153.6 [oz_av] ATHEN A ([facility]) Diastolic blood pressure 78 mm[Hg] 78 mm[Hg] [place] ([facility]) Body height 59.5 [in_i] 59.5 [in_i] [place] ([facility]) Diastolic blood pressure 78 mm[Hg] 78 mm[Hg] [place] ([facility]) Body height 59.5 [in_i] 59.5 [in_i] [place] ([facility]) Body mass index (BMI) [Ratio] 26.7 kg/m2 26.7 k g/m2 [place] ([facility]) Systolic blood pressure 117 mm[Hg] 117 mm[Hg] A THENA ([facility]) Body weight 2153.6 [oz_av] 2153.6 [oz_av] ATHEN A ([facility]) Diastolic blood pressure 78 mm[Hg] 78 mm[Hg] [place] ([facility]) Body height 59.5 [in_i] 59.5 [in_i] [place] ([facility]) Body mass index (BMI) [Ratio] 26.7 kg/m2 26.7 k g/m2 [place] ([facility]) Systolic blood pressure 117 mm[Hg] 117 mm[Hg] [facility] Body weight 2153.6 [oz_av] 2153.6 [oz_av] ATHEN A ([facility]) Diastolic blood pressure 78 mm[Hg] 78 mm[Hg] [place] ([facility]) Body height 59.5 [in_i] 59.5 [in_i] [place] ([facility]) Body mass index (BMI) [Ratio] 26.7 kg/m2 26.7 k g/m2 [place] ([facility]) Systolic blood pressure 117 mm[Hg] 117 mm[Hg] A [facility] ([facility]) Body weight 2153.6 [oz_av] 2153.6 [oz_av] ATHEN A ([facility]) Diastolic blood pressure 78 mm[Hg] 78 mm[Hg] [place] ([facility]) Body height 59.5 [in_i] 59.5 [in_i] [place] ([facility]) Body mass index (BMI) [Ratio] 26.7 kg/m2 26.7 k g/m2 [place] ([facility]) Systolic blood pressure 117 mm[Hg] 117 mm[Hg] A [facility] ([facility]) Body weight 2153.6 [oz_av] 2153.6 [oz_av] ATHEN A ([facility]) Diastolic blood pressure 78 mm[Hg] 78 mm[Hg] [place] ([facility]) Body height 59.5 [in_i] 59.5 [in_i] [place] ([facility]) Body mass index (BMI) [Ratio] 26.7 kg/m2 26.7 k g/m2 [place] ([facility]) Systolic blood pressure 117 mm[Hg] 117 mm[Hg] [facility] Body weight 2153.6 [oz_av] 2153.6 [oz_av] ATHEN A ([facility]) Patient Treatment Plan of Care Planned Activity Planned Date Details Description Data Source (s) 12 HR Bupropion Hydrochloride 100 MG Extended Release Oral Tablet [Wellbutrin] [place] ([facility]) topiramate 100 MG Oral Tablet [place] ([facility]) terbinafine 250 MG Oral Tablet [place] ([facility]) sennosides, RESIDENTIAL 8.6 MG Oral Tablet [Senna-Time] GREGORIA ([facility]) Ondansetron 4 MG Disintegrating Oral Tablet GREGORIA ([facility]) Omeprazole 20 MG Delayed Release Oral Capsule GREGORIA ([facility]) olanzapine 5 MG Oral Tablet GREGORIA ([facility]) Diphenhydramine Hydrochloride 25 MG Oral Tablet GREGORIA ([facility]) Miconazole Nitrate 100 MG Vaginal Suppository [place] ([facility]) Metronidazole 500 MG Oral Tablet [place] ([facility]) methylprednisolone 4 mg tablets in a dos e pack TAKE DIRECTED PER PACKAGE INSTRUCTIONS [place] ([facility]) Ibuprofen 800 MG Oral Tablet [place] ([facility]) benzonatate 200 MG Oral Capsule [place] ([facility]) Diphenhydramine Hydrochloride 50 MG Oral Capsule [Banophen] [place] ([facility]) Diphenhydramine Hydrochloride 25 MG Oral Capsule [Banophen] [place] ([facility]) aripiprazole 5 MG Oral Tablet [place] ([facility]) aripiprazole 2 MG Oral Tablet [place] ([facility]) Loperamide Hydrochloride 2 MG Oral Tablet [place] ([facility]) Amoxicillin 875 MG / Clavulanate 125 MG Oral Tablet [place] ([facility]) Amoxicillin 875 MG Oral Tablet [place] ([facility]) Amoxicillin 500 MG Oral Capsule [place] ([facility]) 12 HR Bupropion Hydrochloride 100 MG Extended Release Oral Tablet [Wellbutrin] [place] ([facility]) topiramate 100 MG Oral Tablet [place] ([facility]) terbinafine 250 MG Oral Tablet [place] ([facility]) sennosides, RESIDENTIAL 8.6 MG Oral Tablet [Senna-Time] [place] ([facility]) Ondansetron 4 MG Disintegrating Oral Tablet [place] ([facility]) Omeprazole 20 MG Delayed Release Oral Capsule [place] ([facility]) olanzapine 5 MG Oral Tablet [place] ([facility]) Diphenhydramine Hydrochloride 25 MG Oral Tablet [place] ([facility]) Miconazole Nitrate 100 MG Vaginal Suppository [place] ([facility]) Metronidazole 500 MG Oral Tablet [place] ([facility]) methylprednisolone 4 mg tablets in a dos e pack TAKE DIRECTED PER PACKAGE INSTRUCTIONS [place] ([facility]) Ibuprofen 800 MG Oral Tablet [place] ([facility]) benzonatate 200 MG Oral Capsule [place] ([facility]) Diphenhydramine Hydrochloride 50 MG Oral Capsule [Banophen] [place] ([facility]) Diphenhydramine Hydrochloride 25 MG Oral Capsule [Banophen] [place] ([facility]) aripiprazole 5 MG Oral Tablet [place] ([facility]) aripiprazole 2 MG Oral Tablet [place] ([facility] Loperamide Hydrochloride 2 MG Oral Tablet [place] ([facility]) Amoxicillin 875 MG / Clavulanate 125 MG Oral Tablet [place] ([facility]) Amoxicillin 875 MG Oral Tablet [place] ([facility]) Amoxicillin 500 MG Oral Capsule [place] ([facility]) Omeprazole 20 MG Delayed Release Oral Capsule [place] ([facility]) Diphenhydramine Hydrochloride 25 MG Oral Tablet [place] ([facility]) Metronidazole 500 MG Oral Tablet [place] ([facility]) Ibuprofen 800 MG Oral Tablet [place] ([facility]) Diphenhydramine Hydrochloride 50 MG Oral Capsule [Banophen] [place] ([facility]) Diphenhydramine Hydrochloride 25 MG Oral Capsule [Banophen] [place] ([facility]) aripiprazole 2 MG Oral Tablet [place] ([facility] Amoxicillin 875 MG / Clavulanate 125 MG Oral Tablet [place] ([facility]) Amoxicillin 875 MG Oral Tablet [place] ([facility]) Amoxicillin 500 MG Oral Capsule [place] ([facility] Omeprazole 20 MG Delayed Release Oral Capsule [place] ([facility]) Diphenhydramine Hydrochloride 25 MG Oral Tablet [place] ([facility]) Metronidazole 500 MG Oral Tablet [place] ([facility]) Ibuprofen 800 MG Oral Tablet [place] ([facility]) Diphenhydramine Hydrochloride 50 MG Oral Capsule [Banophen] [place] ([facility]) Diphenhydramine Hydrochloride 25 MG Oral Capsule [Banophen] [place] ([facility]) aripiprazole 2 MG Oral Tablet [place] ([facility]) Amoxicillin 875 MG / Clavulanate 125 MG Oral Tablet [place] ([facility]) Amoxicillin 875 MG Oral Tablet [place] ([facility]) Amoxicillin 500 MG Oral Capsule [place] ([facility]) Omeprazole 20 MG Delayed Release Oral Capsule [place] ([facility]) Diphenhydramine Hydrochloride 25 MG Oral Tablet [place] ([facility]) Metronidazole 500 MG Oral Tablet [place] ([facility]) Ibuprofen 800 MG Oral Tablet [place] ([facility]) Diphenhydramine Hydrochloride 50 MG Oral Capsule [Banophen] [place] ([facility]) Diphenhydramine Hydrochloride 25 MG Oral Capsule [Banophen] [place] ([facility]) aripiprazole 2 MG Oral Tablet [place] ([facility]) Amoxicillin 875 MG / Clavulanate 125 MG Oral Tablet [place] ([facility]) Amoxicillin 875 MG Oral Tablet [place] ([facility]) Amoxicillin 500 MG Oral Capsule [place] ([facility]) Omeprazole 20 MG Delayed Release Oral Capsule [place] ([facility]) Diphenhydramine Hydrochloride 25 MG Oral Tablet [place] ([facility]) Metronidazole 500 MG Oral Tablet [place] ([facility]) Ibuprofen 800 MG Oral Tablet [place] ([facility]) Diphenhydramine Hydrochloride 50 MG Oral Capsule [Banophen] [place] ([facility]) Diphenhydramine Hydrochloride 25 MG Oral Capsule [Banophen] [place] ([facility]) aripiprazole 2 MG Oral Tablet [place] ([facility]) Amoxicillin 500 MG Oral Capsule [place] ([facility]) sennosides, RESIDENTIAL 8.6 MG Oral Tablet [Senna-Time] [place] ([facility]) Omeprazole 20 MG Delayed Release Oral Capsule [place] ([facility]) Diphenhydramine Hydrochloride 25 MG Oral Tablet [place] ([facility]) Metronidazole 500 MG Oral Tablet [place] ([facility]) Ibuprofen 800 MG Oral Tablet [place] ([facility]) Docusate Sodium 100 MG Oral Capsule [DOK] [place] ([facility]) 24 HR Bupropion Hydrochloride 300 MG Extended Release Oral Tablet [place] ([facility]) 24 HR Bupropion Hydrochloride 150 MG Extended Release Oral Tablet [place] ([facility]) Diphenhydramine Hydrochloride 50 MG Oral Capsule [Banophen] [place] ([facility]) Diphenhydramine Hydrochloride 25 MG Oral Capsule [Banophen] [place] ([facility]) aripiprazole 2 MG Oral Tablet [place] ([facility]) Amoxicillin 500 MG Oral Capsule [place] ([facility]) sennosides, RESIDENTIAL 8.6 MG Oral Tablet [Senna-Time] [place] ([facility]) Omeprazole 20 MG Delayed Release Oral Capsule [place] ([facility]) Diphenhydramine Hydrochloride 25 MG Oral Tablet [place] ([facility]) Metronidazole 500 MG Oral Tablet [place] ([facility]) Ibuprofen 800 MG Oral Tablet [place] ([facility]) Docusate Sodium 100 MG Oral Capsule [DOK] [place] ([facility]) 24 HR Bupropion Hydrochloride 300 MG Extended Release Oral Tablet [place] ([facility]) 24 HR Bupropion Hydrochloride 150 MG Extended Release Oral Tablet [place] ([facility]) Diphenhydramine Hydrochloride 50 MG Oral Capsule [Banophen] [place] ([facility]) Diphenhydramine Hydrochloride 25 MG Oral Capsule [Banophen] [place] ([facility]) aripiprazole 2 MG Oral Tablet [place] ([facility] Amoxicillin 500 MG Oral Capsule [place] ([facility])
[2021-09-23 13:26] LABS: BASO % 0.4 % (0.0-1.0); EOS # 0.1 10^3/uL (0.0-0.5); EOS % 0.7 % (0.0-3.0); HEMATOCRIT 40.9 % (36.0-47.0); HEMOGLOBIN 13.4 g/dl (12.0-15.5); LYMPH # 2.5 10^3/uL (1.5-5.0); LYMPH % 34.4 % (24.0-44.0); MEAN CORPUSCULAR HEMOGLOBIN 29.7 pg (27.0-33.0); MEAN CORPUSCULAR HGB CONC 32.8 g/dl (32.0-36.5); MEAN CORPUSCULAR VOLUME 90.7 fl (80.0-96.0); MONO # 0.5 10^3/uL (0.0-0.8); MONO % 7.2 % (2.0-8.0); NEUTROPHILS # 4.2 10^3/uL (1.5-8.5); NEUTROPHILS % 57.2 % (36.0-66.0); PLATELET COUNT, AUTOMATED 319 10^3/uL (150-450); RED BLOOD COUNT 4.51 10^6/uL (4.00-5.40); WHITE BLOOD COUNT 7.4 10^3/uL (4.0-10.0)
[2021-09-23 14:00] LABS: AMPHETAMINES LEVEL URINE NEGATIVE (NEGATIVE); BARBITURATES URINE NEGATIVE (NEGATIVE); BENZODIAZEPINES URINE NEGATIVE (NEGATIVE); CANNABINOIDS URINE NEGATIVE (NEGATIVE); COCAINE METABOLITE URINE NEGATIVE (NEGATIVE); METHADONE URINE POSITIVE (NEGATIVE); OPIATES URINE NEGATIVE (NEGATIVE); PHENCYCLIDINE URINE NEGATIVE (NEGATIVE)
[2021-09-23] MEDS ORDERED: ACETAMINOPHEN 500 MG TAB PO ONE (14:05)
[2021-09-23] MEDS ORDERED: NS 1,000 ML IV ONE (14:05)
[2021-09-23] MEDS ORDERED: PROMETHAZINE INJ 25 MG/ML VIAL (J2550) IV ONE (14:05)
[2021-09-23 14:53] LABS: ALBUMIN 3.8 GM/DL (3.2-5.2); ALT/SGPT 20 U/L (12-78); AMYLASE 37 U/L (25-115); BILIRUBIN,DIRECT < 0.1 MG/DL (0.0-0.2); BILIRUBIN,TOTAL 0.5 MG/DL (0.2-1.0); BLOOD UREA NITROGEN 12 MG/DL (7-18); CALCIUM LEVEL 8.8 MG/DL (8.5-10.1); CARBON DIOXIDE LEVEL 27 MEQ/L (21-32); CHLORIDE LEVEL 106 MEQ/L (98-107); CREATININE FOR GFR 0.85 MG/DL (0.55-1.30); GLOMERULAR FILTRATION RATE > 60.0 (>60); GLUCOSE, FASTING 76 MG/DL (70-100); LIPASE 37 U/L (73-393); POTASSIUM SERUM 5.4 MEQ/L (3.5-5.1); SODIUM LEVEL 138 MEQ/L (136-145); TOTAL PROTEIN 7.9 GM/DL (6.4-8.2)
== END 2021-09-23 15:57 | disposition home or self-care (01) ==
LOC: M ED 08:48
DX: R11.2 Nausea with vomiting, unspecified (principal); F41.9 Anxiety disorder, unspecified; F31.9 Bipolar disorder, unspecified; G47.30 Sleep apnea, unspecified; F17.200 Nicotine dependence, unspecified, uncomplicated

== ENCOUNTER → 2021-11-07 | Outpatient (REF) | payer OTHER ==
[~2021-11-07] MED LIST changes: +BUPR150T12; +BUPR300T92; +TOPI25TA10; +[UNRECOGNIZED DRUG - CODE]
== END ==
LOC: M LAB REF 16:32
PROVIDERS: ATTEND Physician Assistant
DX: J02.9 Acute pharyngitis, unspecified (principal)

== ENCOUNTER → 2022-01-24 | Outpatient (CLI) | payer OTHER | LOC: M RAD 07:33 | PROVIDERS: ATTEND Internal Medicine Gastroenterology | DX: R11.0 Nausea (principal) ==

== ENCOUNTER → 2022-02-21 | Outpatient (CLI) | payer OTHER ==
[~2022-02-21] MED LIST changes: +OXYB5TAB10 PO; +VRAY1.5C PO
== END ==
LOC: M LABSMTC 10:02
PROVIDERS: ATTEND Anesthesiology
DX: Z01.818 Encounter for other preprocedural examination (principal); Z11.52 Encounter for screening for COVID-19

== ENCOUNTER 2022-02-26 13:03 | Day surgery (SDC) | payer OTHER ==
[~2022-02-26] VITALS: Ht 147.3 cm; Wt 51.6 kg
[~2022-02-26 13:03] MED LIST changes: +NS 1,000 ML IV ONE
[2022-02-26] MEDS ORDERED: propofoL 200 MG/20 ML VIAL As Ordered ONE (14:31)
[2022-02-26] MEDS ORDERED: LIDOCAINE 2% 100MG/5ML SDV (FOR ANES.) As Ordered ONE (14:31)
[2022-02-26 15:48] VITALS: BP 108/64
== END 2022-02-26 15:50 | disposition home or self-care (01) ==
LOC: M OPP 13:03
PROVIDERS: ATTEND Internal Medicine Gastroenterology
DX: K59.01 Slow transit constipation (principal); R11.0 Nausea; R12 Heartburn; G47.30 Sleep apnea, unspecified; Z79.891 Long term (current) use of opiate analgesic; Z79.899 Other long term (current) drug therapy; F17.210 Nicotine dependence, cigarettes, uncomplicated

== ENCOUNTER 2022-04-06 20:58 | Emergency (ER) | payer OTHER ==
[~2022-04-06] VITALS: Ht 147.3 cm; Wt 59.1 kg
[~2022-04-06 20:58] MED LIST changes: -NS 1,000 ML IV ONE
[2022-04-06 20:59] VITALS: BP 116/68
== END 2022-04-06 21:47 | disposition left against medical advice (07) ==
LOC: M ED 20:58
DX: Z53.21 Procedure and treatment not carried out due to patient leaving prior to being seen by health care provider (principal)

== ENCOUNTER → 2022-06-12 | Outpatient (CLI) | payer OTHER ==
[2022-06-12 08:54] LABS: HEMATOCRIT 37.3 % (36.0-47.0); HEMOGLOBIN 12.3 g/dl (12.0-15.5); MEAN CORPUSCULAR HEMOGLOBIN 31.8 pg (27.0-33.0); MEAN CORPUSCULAR VOLUME 96.4 fl (80.0-96.0); PLATELET COUNT, AUTOMATED 269 10^3/uL (150-450); RED BLOOD COUNT 3.87 10^6/uL (4.00-5.40); WHITE BLOOD COUNT 9.8 10^3/uL (4.0-10.0)
[2022-06-12 09:20] LABS: HCG, SERUM QUALITATIVE POSITIVE (NEGATIVE)
[2022-06-12 10:33] LABS: GC DNA AMPLIFICATION NEGATIVE (NEGATIVE)
[2022-06-12 11:06] LABS: ALBUMIN 3.5 GM/DL (3.2-5.2); ALT/SGPT 10 U/L (12-78); BILIRUBIN,TOTAL 0.5 MG/DL (0.2-1.0); BLOOD UREA NITROGEN 6 MG/DL (7-18); CARBON DIOXIDE LEVEL 26 MEQ/L (21-32); CHLORIDE LEVEL 104 MEQ/L (98-107); CREATININE FOR GFR 0.65 MG/DL (0.55-1.30); GLOMERULAR FILTRATION RATE > 60.0 (>60); GLUCOSE, FASTING 74 MG/DL (70-100); HEPATITIS B SURFACE ANTIGEN NEGATIVE (NEGATIVE); HIV 1&2 SCREEN CENTAUR NEGATIVE (NEGATIVE); POTASSIUM SERUM 3.6 MEQ/L (3.5-5.1); SODIUM LEVEL 137 MEQ/L (136-145); TOTAL PROTEIN 7.4 GM/DL (6.4-8.2)
== END ==
LOC: M LAB 07:41
PROVIDERS: ATTEND Family Medicine
DX: F11.21 Opioid dependence, in remission (principal)

== ENCOUNTER 2022-07-16 08:38 | Emergency (ER) | payer OTHER ==
[~2022-07-16] VITALS: Ht 147.3 cm; Wt 45.4 kg
[2022-07-16 08:48] VITALS: BP 117/67
[2022-07-16] MEDS ORDERED: ACETAMINOPHEN 500 MG TAB PO ONE (09:10)
[2022-07-16 10:25] LABS: BASO % 0.3 % (0.0-1.0); EOS % 0.2 % (0.0-3.0); HEMATOCRIT 34.6 % (36.0-47.0); HEMOGLOBIN 11.5 g/dl (12.0-15.5); LYMPH # 2.3 10^3/uL (1.5-5.0); LYMPH % 17.5 % (24.0-44.0); MEAN CORPUSCULAR HEMOGLOBIN 32.4 pg (27.0-33.0); MEAN CORPUSCULAR HGB CONC 33.2 g/dl (32.0-36.5); MEAN CORPUSCULAR VOLUME 97.5 fl (80.0-96.0); MONO # 0.8 10^3/uL (0.0-0.8); MONO % 5.7 % (2.0-8.0); NEUTROPHILS # 9.9 10^3/uL (1.5-8.5); NEUTROPHILS % 75.8 % (36.0-66.0); PLATELET COUNT, AUTOMATED 270 10^3/uL (150-450); RED BLOOD COUNT 3.55 10^6/uL (4.00-5.40); WHITE BLOOD COUNT 13.1 10^3/uL (4.0-10.0)
[2022-07-16 10:56] LABS: BLOOD UREA NITROGEN 12 MG/DL (7-18); CALCIUM LEVEL 8.7 MG/DL (8.5-10.1); CARBON DIOXIDE LEVEL 25 MEQ/L (21-32); CHLORIDE LEVEL 105 MEQ/L (98-107); CREATININE FOR GFR 0.72 MG/DL (0.55-1.30); GLOMERULAR FILTRATION RATE > 60.0 (>60); GLUCOSE, FASTING 93 MG/DL (70-100); POTASSIUM SERUM 4.7 MEQ/L (3.5-5.1); SODIUM LEVEL 133 MEQ/L (136-145)
[2022-07-16 11:07] LABS: RSV AMPLIFICATION NEGATIVE (NEGATIVE)
== END 2022-07-16 10:15 | disposition admitted as inpatient to this hospital (09) ==
LOC: EDBD 08:38 → M ED 08:38
DX: O42 Premature rupture of membranes (principal); N93.9 Abnormal uterine and vaginal bleeding, unspecified; G43.909 Migraine, unspecified, not intractable, without status migrainosus; F41.9 Anxiety disorder, unspecified; F32.A Depression, unspecified; F31.9 Bipolar disorder, unspecified; A60.00 Herpesviral infection of urogenital system, unspecified; F17.200 Nicotine dependence, unspecified, uncomplicated; F15.10 Other stimulant abuse, uncomplicated; Z3A.08 8 weeks gestation of pregnancy; Z79.899 Other long term (current) drug therapy

== ENCOUNTER 2022-07-16 10:16 | Day surgery (SDC) | payer OTHER ==
[2022-07-16] MEDS ORDERED: LIDOCAINE 2% 100MG/5ML SDV (FOR ANES.) As Ordered ONE (11:48)
[2022-07-16] MEDS ORDERED: propofoL 200 MG/20 ML VIAL As Ordered ONE (11:48)
[2022-07-16] MEDS ORDERED: ROCURONIUM BROMIDE 50 MG/5 ML VIAL As Ordered ONE (11:48)
[2022-07-16] MEDS ORDERED: fentaNYL 100 MCG/2 ML INJECTION As Ordered ONE (11:48)
[2022-07-16] MEDS ORDERED: MIDAZOLAM INJ 2MG/2ML VIAL (J2250 PER 1MG) As Ordered ONE (11:48)
[2022-07-16] MEDS ORDERED: ONDANSETRON 4MG 2ML VIAL As Ordered ONE (11:48)
[2022-07-16] MEDS ORDERED: SUCCINYLCHOLINE 100 MG/5 ML SYRINGE (J0330) As Ordered ONE (11:48)
[2022-07-16] MEDS ORDERED: dexameTHASONE 4 MG/ML 1ML VIAL (J1100 PER 1MG) As Ordered ONE (11:48)
[2022-07-16] MEDS ORDERED: DOXYCYCLINE HYCLATE 100MG/10ML VIAL As Ordered ONE (12:17)
[2022-07-16] MEDS ORDERED: METHYLERGONOVINE MALEATE 0.2 MG/ML VIAL (J2210) As Ordered ONE (12:35)
[2022-07-16] MEDS ORDERED: LIDOCAINE W/EPINEPHRINE 1% 20ML VIAL As Ordered ONE (12:54)
[2022-07-16] MEDS ORDERED: OXYTOCIN INJ 10 UNITS/ML VIAL (J2590) As Ordered ONE (13:02)
[2022-07-16] MEDS ORDERED: METOCLOPRAMIDE INJ 10MG/2ML VIAL (J2765 PER 1) IV PRN (13:30)
[2022-07-16] MEDS ORDERED: LR 1,000 ML IV SCH (13:30)
[2022-07-16] MEDS ORDERED: ONDANSETRON 4MG 2ML VIAL IV PRN (13:30)
[2022-07-16] MEDS ORDERED: IBUPROFEN 600MG TAB PO PRN (13:45)
[2022-07-16] MEDS ORDERED: ACETAMINOPHEN 500 MG TAB PO PRN (13:45)
[2022-07-16] MEDS ORDERED: oxyCODONE 5MG TAB PO PRN (13:50)
[2022-07-16 15:27] VITALS: BP 112/60
== END 2022-07-16 15:27 | disposition home or self-care (01) ==
LOC: M SDC 10:16
PROVIDERS: ATTEND Obstetrics & Gynecology
DX: O42.912 Preterm premature rupture of membranes, unspecified as to length of time between rupture and onset of labor, second trimester (principal); Z3A.19 19 weeks gestation of pregnancy
CPT/HCPCS: 59160; 76857; 86920; 88300; 88305; J0330; J1100; J2210; J2250; J2405; J2590; J3010

== ENCOUNTER 2022-11-01 09:29 | Emergency (ER) | payer OTHER ==
[~2022-11-01] VITALS: Ht 147.3 cm; Wt 49.1 kg
[2022-11-01 12:43] LABS: HEMATOCRIT 37.9 % (36.0-47.0); HEMOGLOBIN 12.2 g/dl (12.0-15.5); MEAN CORPUSCULAR HEMOGLOBIN 30.2 pg (27.0-33.0); MEAN CORPUSCULAR HGB CONC 32.2 g/dl (32.0-36.5); MEAN CORPUSCULAR VOLUME 93.8 fl (80.0-96.0); PLATELET COUNT, AUTOMATED 312 10^3/uL (150-450); RED BLOOD COUNT 4.04 10^6/uL (4.00-5.40); WHITE BLOOD COUNT 8.6 10^3/uL (4.0-10.0)
[2022-11-01 17:15] VITALS: BP 109/90
== END 2022-11-01 17:33 | disposition home or self-care (01) ==
LOC: M ED 09:29
DX: O20.0 Threatened abortion (principal); F17.200 Nicotine dependence, unspecified, uncomplicated; F31.9 Bipolar disorder, unspecified; Z3A.00 Weeks of gestation of pregnancy not specified; Z79.83 Long term (current) use of bisphosphonates; Z79.899 Other long term (current) drug therapy

== ENCOUNTER → 2022-11-04 | Outpatient (CLI) | payer OTHER | LOC: M LAB 14:31 | PROVIDERS: ATTEND Emergency Medicine | DX: O20.0 Threatened abortion (principal); Z3A.00 Weeks of gestation of pregnancy not specified ==

== ENCOUNTER → 2022-11-14 | Outpatient (REF) | payer OTHER | LOC: M LAB REF 16:32 | PROVIDERS: ATTEND Obstetrics & Gynecology | DX: Z32.01 Encounter for pregnancy test, result positive (principal); O36.80X0 Pregnancy with inconclusive fetal viability, not applicable or unspecified ==

== ENCOUNTER → 2022-11-21 | Outpatient (CLI) | payer OTHER ==
[2022-11-21 13:08] LABS: HEMATOCRIT 36.2 % (36.0-47.0); HEMOGLOBIN 11.7 g/dl (12.0-15.5); MEAN CORPUSCULAR HEMOGLOBIN 30.3 pg (27.0-33.0); MEAN CORPUSCULAR HGB CONC 32.3 g/dl (32.0-36.5); MEAN CORPUSCULAR VOLUME 93.8 fl (80.0-96.0); PLATELET COUNT, AUTOMATED 263 10^3/uL (150-450); RED BLOOD COUNT 3.86 10^6/uL (4.00-5.40); WHITE BLOOD COUNT 6.8 10^3/uL (4.0-10.0)
[2022-11-21 13:57] LABS: HEPATITIS B SURFACE ANTIGEN NEGATIVE (NEGATIVE)
[2022-11-21 14:10] LABS: HIV 1&2 SCREEN CENTAUR NEGATIVE (NEGATIVE)
[2022-11-21 14:18] LABS: HEPATITIS C VIRUS ABY INDEX 0.1 INDEX (<0.8)
[2022-11-21 14:28] LABS: HCG, SERUM QUANTITATIVE 17336.9 MIU/ML (<4.2)
== END ==
LOC: M LAB 11:36
PROVIDERS: ATTEND Obstetrics & Gynecology
DX: Z32.01 Encounter for pregnancy test, result positive (principal)

== ENCOUNTER → 2022-11-28 | Outpatient (CLI) | payer OTHER ==
[2022-11-28 17:09] LABS: PROGESTERONE 5.12 NG/ML
[2022-11-28 17:20] LABS: HCG, SERUM QUANTITATIVE 10152.1 MIU/ML (<4.2)
== END ==
LOC: M RAD 12:00
PROVIDERS: ATTEND Obstetrics & Gynecology
DX: O00.90 Unspecified ectopic pregnancy without intrauterine pregnancy (principal)

== ENCOUNTER 2022-12-09 11:44 | Emergency (ER) | payer OTHER ==
[~2022-12-09] VITALS: Ht 147.3 cm; Wt 51.4 kg
[2022-12-09 11:45] VITALS: BP 102/66
== END 2022-12-09 19:15 | disposition left against medical advice (07) ==
LOC: M ED 11:44
DX: Z53.21 Procedure and treatment not carried out due to patient leaving prior to being seen by health care provider (principal)

== ENCOUNTER → 2022-12-10 | Outpatient (REF) | payer OTHER | LOC: M LAB REF 12:24 | PROVIDERS: ATTEND Obstetrics & Gynecology | DX: O02.1 Missed abortion (principal) ==

== ENCOUNTER → 2022-12-17 | Outpatient (REF) | payer OTHER | LOC: M LAB REF 16:18 | PROVIDERS: ATTEND Obstetrics & Gynecology | DX: O02.1 Missed abortion (principal) ==

== ENCOUNTER 2023-03-15 08:11 | Emergency (ER) | payer OTHER ==
[~2023-03-15] VITALS: Ht 147.3 cm; Wt 52.1 kg
[2023-03-15 08:12] VITALS: BP 114/69
== END 2023-03-15 10:41 | disposition left against medical advice (07) ==
LOC: M ED 08:11
DX: Z53.21 Procedure and treatment not carried out due to patient leaving prior to being seen by health care provider (principal)

== ENCOUNTER → 2023-06-06 | Outpatient (CLI) | payer OTHER ==
[2023-06-06 10:32] LABS: BASO % 0.3 % (0.0-1.0); EOS # 0.1 10^3/uL (0.0-0.5); EOS % 0.7 % (0.0-3.0); HEMATOCRIT 34.3 % (36.0-47.0); HEMOGLOBIN 11.4 g/dl (12.0-15.5); LYMPH # 1.9 10^3/uL (1.5-5.0); LYMPH % 27.2 % (24.0-44.0); MEAN CORPUSCULAR HGB CONC 33.2 g/dl (32.0-36.5); MEAN CORPUSCULAR VOLUME 96.3 fl (80.0-96.0); MONO # 0.5 10^3/uL (0.0-0.8); MONO % 6.3 % (2.0-8.0); NEUTROPHILS # 4.6 10^3/uL (1.5-8.5); NEUTROPHILS % 64.9 % (36.0-66.0); PLATELET COUNT, AUTOMATED 234 10^3/uL (150-450); RED BLOOD COUNT 3.56 10^6/uL (4.00-5.40); WHITE BLOOD COUNT 7.1 10^3/uL (4.0-10.0)
[2023-06-06 14:34] LABS: HIV 1&2 SCREEN NEGATIVE (NEGATIVE)
[2023-06-06 14:42] LABS: HEPATITIS C VIRUS ABY INDEX 0.07 INDEX (<0.8)
[2023-06-06 15:39] LABS: HCG, SERUM QUANTITATIVE 13404.9 MIU/ML (<4.2)
== END ==
LOC: M LAB 09:54
PROVIDERS: ATTEND Obstetrics & Gynecology
DX: Z3A.00 Weeks of gestation of pregnancy not specified (principal)

== ENCOUNTER → 2023-06-06 | Outpatient (CLI) | payer OTHER | LOC: M RAD 09:48 | PROVIDERS: ATTEND Obstetrics & Gynecology | DX: Z3A.00 Weeks of gestation of pregnancy not specified (principal) ==

== ENCOUNTER → 2023-07-01 | Outpatient (CLI) | payer OTHER | LOC: M RAD 10:51 | PROVIDERS: ATTEND Obstetrics & Gynecology | DX: Z34.82 Encounter for supervision of other normal pregnancy, second trimester (principal) ==

== ENCOUNTER → 2023-07-09 | Outpatient (REF) | payer OTHER | LOC: M LAB REF 16:24 | PROVIDERS: ATTEND Obstetrics & Gynecology | DX: Z34.82 Encounter for supervision of other normal pregnancy, second trimester (principal) ==

== ENCOUNTER → 2024-10-01 | Outpatient (CLI) | payer OTHER ==
[~2024-10-01] MED LIST changes: +BUPR-597 PO; +BUPR150T12 PO; -BUPR300T92; +ESOM40CA35 PO; +JUNETAB PO; +ONDA-282 PO; -ONDA4TAB6 PO; -OXYB5TAB10 PO; +OXYB5TAB14 PO; +VRAY3CAP PO
[2024-10-01 11:02] LABS: ALBUMIN 3.7 G/DL (3.2-5.2); ALKALINE PHOSPHATASE 60 U/L (35-104); ALT/SGPT 10 U/L (7.0-40); AST/SGOT < 8 U/L (<34); BILIRUBIN,TOTAL 0.3 MG/DL (0.3-1.2); BLOOD UREA NITROGEN 10 MG/DL (9-23); CALCIUM LEVEL 9.1 MG/DL (8.5-10.1); CARBON DIOXIDE LEVEL 26 MMOL/L (20-31); CHLORIDE LEVEL 107 MMOL/L (98-107); CREATININE FOR GFR 0.91 MG/DL (0.55-1.30); GLOMERULAR FILTRATION RATE > 60.0 (>60); GLUCOSE, FASTING 79 MG/DL (60-100); POTASSIUM SERUM 4.6 MMOL/L (3.5-5.1); SODIUM LEVEL 138 MMOL/L (136-145); TOTAL PROTEIN 7.4 G/DL (5.7-8.2)
== END ==
LOC: M LAB 10:05
PROVIDERS: ATTEND Nurse Practitioner Family
DX: F32.9 Major depressive disorder, single episode, unspecified (principal); F43.10 Post-traumatic stress disorder, unspecified